=== PATIENT | male | born 1950 | race Caucasian/White ===

== ENCOUNTER → 2016-09-23 | Outpatient (CLI) | payer MEDICARE, MEDICAID ==
[~2016-09-23] MED LIST: ATOR20TA PO; ATOR40TA16 PO; AZIT250T74 PO; BEDSIDE COMMODE1 MI1; CALC0.25 PO; CEFT250S PO; CEFU1TAB43 PO; CILO50TA PO; CITA10TA4 PO; CLAR10TA7 PO; COUM2TAB PO; CYAN100015 BUCCAL; CYMB30CA PO; ECOT81TA2 PO; FLON0.053; FLUT1SPR5 EACH NARE; GABA300C3 PO; GABA300C5 PO; HYDR-3129 PO; HYDR-3366 PO; LEVEMIR SQ; LIPI40TA PO; LISI-519 PO; LORA-361 PO; LORA10TA PO; METO100 PO; METO25TA3 PO; PATI1POW PO; PLAV75TA29 PO; PRIL40CA PO; PROT40TA PO; PROTPAK PO; SODI325T PO; SPIRCAP INH; TIOT18I INH; VENTAER INH; VITA100020 PO; WARF5 PO; [UNRECOGNIZED DRUG - CODE]; [UNRECOGNIZED DRUG - CODE]; [UNRECOGNIZED DRUG - CODE] PEG
--- NOTE | 2016-09-23 10:53 | RADRPT ---
EXAM DATE/TIME: 09/23/2016 00:00 [facility] COMPARISON: No previous studies available for comparison. INDICATIONS : Dysphagia FLUORO TIME: 3.0 minutes IMAGE COUNT: 0 CONTRAST: Dose as prescribed by speech pathologist. MEDICAL HISTORY : radiation therapy to throat SURGICAL HISTORY : None. ENCOUNTER: Initial ACUITY: 1 month PAIN SCORE: Non-responsive. LOCATION: Bilateral throat FINDINGS: A modified barium swallow was performed with speech pathology. Patient was given a variety of liquids to swallow. Examination with the straight erect projection reveals with thin liquids penetration and aspiration w ith suboptimal movement of the epiglottis and pooling in the vallecula. For a full detailed report, see report by the speech pathologist. CONCLUSION: Please see speech pathology report Oscar Verdugo MD on September 23, 2016 at 10:51 Board Certified Radiologist. This report was verified electronically.
== END ==
LOC: HRAD 09:43
PROVIDERS: ATTEND Internal Medicine Gastroenterology
DX: R13.10 Dysphagia, unspecified (principal)
CPT/HCPCS: 74230; 92611; G8996; G8997; G8998

== ENCOUNTER 2016-09-26 08:17 | Inpatient (IN) | payer MEDICARE, MEDICAID ==
[~2016-09-26] VITALS: Ht 182.9 cm; Wt 80.5 kg
[2016-09-26] VITALS (10 sets, daily range): BP systolic 99–150; BP diastolic 55–77; PULSE 63–100; RESP 18–20; TEMP 96.1–98.3; O2SAT 92–96
[~2016-09-26 08:17] MED LIST changes: -ATOR40TA16 PO; -BEDSIDE COMMODE1 MI1; -CEFT250S PO; -CILO50TA PO; -CLAR10TA7 PO; -COUM2TAB PO; -CYAN100015 BUCCAL; -CYMB30CA PO; -FLUT1SPR5 EACH NARE; -GABA300C5 PO; -HYDR-3366 PO; -LIPI40TA PO; -LISI-519 PO; -LORA-361 PO; -METO25TA3 PO; -PATI1POW PO; -PLAV75TA29 PO; -PROT40TA PO; -PROTPAK PO; -SODI325T PO; -SPIRCAP INH; -[UNRECOGNIZED DRUG - CODE]; -[UNRECOGNIZED DRUG - CODE]; -[UNRECOGNIZED DRUG - CODE] PEG
[2016-09-26] MEDS ORDERED: SODIUM CHLOR 0.9% 1000 ML INJ 1,000 ML IV SCH (08:33)
[2016-09-26] MEDS ORDERED: ONDANSETRON HCL 4 MG/2 ML VIAL IVP PRN (08:45)
[2016-09-26] MEDS ORDERED: SODIUM CHLORIDE 0.9% FLUSH 5 ML FLUSH FLUSH PRN ×2 (08:45→09:00)
[2016-09-26] MEDS ORDERED: NALOXONE HCL 0.4 MG/ML AMP IV PRN ×2 (08:45→09:00)
[2016-09-26] MEDS ORDERED: SODIUM CHLORIDE 0.9% FLUSH 5 ML FLUSH IVF PRN (08:45)
[2016-09-26 08:47] LABS: AUTOMATED NEUTROPHIL # 14.2 TH/MM3 (1.8-7.7); BASOPHIL # 0.6 TH/MM3 (0-0.2); BASOPHIL % 3.7 % (0.0-2.0); EOSINOPHIL % 0.3 % (0.0-4.0); HEMATOCRIT 43.2 % (39.0-51.0); LYMPH % 3.2 % (9.0-44.0); LYMPHOCYTE # 0.5 TH/MM3 (1.0-4.8); MEAN CELL VOLUME 77.9 FL (80.0-100.0); MEAN CORPUSCULAR HEMOGLOBIN 25.4 PG (27.0-34.0); MEAN CORPUSCULAR HGB CONC 32.7 % (32.0-36.0); MONO % 5.4 % (0.0-8.0); NEUT % 87.4 % (16.0-70.0); PLATELET COUNT 229 TH/MM3 (150-450); RED BLOOD COUNT 5.54 MIL/MM3 (4.50-5.90); RED CELL DISTRIBUTION WIDTH 14.3 % (11.6-17.2); WHITE BLOOD COUNT 16.2 TH/MM3 (4.0-11.0)
[2016-09-26 08:49] LABS: HEMO FLAGS DIFF FINAL
[2016-09-26 08:51] LABS: CHLORIDE 105 MEQ/L (98-107); POTASSIUM 4.2 MEQ/L (3.5-5.1); SODIUM (NA) 140 MEQ/L (136-145)
--- NOTE | 2016-09-26 08:53 | PD ---
HPI Chief Complaint: Chest Pain Time Seen by Provider: 08:33 Travel History International Travel<30 days: No Contact w/Intl Traveler<30days: No Traveled to known affect area: No History of Present Illness HPI 66-year-old male with history of CAD, CABG, PVD on Coumadin, laryngeal cancer status post radiation therapy at [facility], dysphasia, recent PEG tube removal, here for evaluation of cough, shortness of breath, and chest pain. Symptoms started yesterday evening. The patient has had a persistent cough throughout the night. He was noted to have a fever of 102F at 3 AM and was given Tylenol by his . Patient reports having chest pain when he coughs. Cough is productive of yellowish sputum. He had a recent swallow study which showed that the patient aspirated if he was not holding his neck in flexion. The patient's primary care physician Dr. Briggs is present at the patient's bedside when he arrived to the emergency department. There is a high suspicion for aspiration pneumonia. She will admit the patient to her service for further treatment and evaluation. PFSH Past Medical History Hx Anticoagulant Therapy: Yes Anxiety: Yes Depression: Yes Cancer: No Cardiac Catheterization: Yes Cardiovascular Problems: Yes (STENTS - OPEN HEART, HTN, CHOL) High Cholesterol: Yes Congestive Heart Failure: Yes COPD: Yes Cerebrovascular Accident: Yes Coronary Artery Disease: Yes Diabetes: Yes Diminished Hearing: No Endocrine: Yes Gastrointestinal Disorders: Yes GERD: Yes Genitourinary: Yes (RENAL INSUFFICIENCY, POLYCYSTIC KIDNEY DISEASE) Hypertension: Yes Immune Disorder: No Implanted Vascular Access Dvce: No Kidney Stones: Yes Musculoskeletal: No Neurologic: Yes Psychiatric: Yes Reproductive: No Respiratory: Yes (COPD) Immunizations Current: Yes Myocardial Infarction: Yes Renal Failure: Yes Past Surgical History Abdominal Surgery: Yes (gallbladder removed 1995) Arteriovenous Shunt: No Cardiac Surgery: Yes (CARDIAC CATH WITH MULTIPLE STENTS) Cholecystectomy: Yes Coronary Artery Bypass Graft: Yes Coronary Stent: Yes Ear Surgery: Yes Endocrine Surgery: No Eye Surgery: No Gynecologic Surgery: No Insulin Pump: No Joint Replacement: No Thoracic Surgery: No Tonsillectomy: Yes Other Surgery: Yes Social History Alcohol Use: No Tobacco Use: No (QUIT 2008) Substance Use: No Allergies-Medications (Allergen,Severity, Reaction): Coded Allergies: HMG-CoA Reductase Inhibitors (Verified Allergy, Severe, 09/26/16) Niacin (Verified Allergy, Severe, 09/26/16) CAUSES HIM TO FEEL HOT Reported Meds & Prescriptions Reported Meds & Active Scripts Active Ceres 10/325 (Hydrocodone-Acetaminophen 325) Acetaminophen 325/10 Hydrocodone Tab 1 Tab PO Q6H PRN Zithromax (Azithromycin) 250 Mg Tab 250 Mg PO DAILY 3 Days Ceftin 500 Mg Tab (Cefuroxime Axetil) 500 Mg Tab 500 Mg PO DAILY 5 Days Coumadin (Warfarin Sod) 5 Mg Tab 5 Mg PO DAILY@1600 Reported Vitamin B-12 (Cyanocobalamin) 1,000 Mcg Tab Unknown Dose PO DAILY Ventolin Hfa (Albuterol Sulfate) 18 Gm Aero 2 Puff INH Q4H PRN * SHAKE WELL BEFORE USE * Spiriva 18 Mcg Oral Inh (Tiotropium [place]) 18 Mcg Inhp 1 Cap INH DAILY Prilosec 40 mg cap (Omeprazole) 40 Mg Cap 40 Mg PO DAILY Gabapentin 300 Mg Cap 300 Mg PO BID Calcitriol 0.25 Mcg Cap 0.25 Mcg PO DAILY Atorvastatin 20 mg tab (Atorvastatin Calcium) 20 Mg Tab 10 Mg PO DAILY Ecotrin (Aspirin) 81 Mg Tabec 81 Mg PO DAILY Citalopram Hydrobromide 10 Mg Tab 10 Mg PO DAILY Flonase (Fluticasone Propionate) 0.05 % Naspr 1 Spr NA DAILY 1 SPRAY EACH NOSTRIL Metoprolol Tartrate 100 Mg Tab 100 Mg PO BID Levemir (Insulin Detemir) Inj 10 Units SQ DAILY Claritin 10 Mg Tab (Loratadine) 10 Mg Tab 10 Mg PO DAILY Review of Systems Except as stated in HPI: all other systems reviewed are Neg Physical Exam Narrative GENERAL: Pleasant, well-developed, well-nourished, awake, alert, comfortable, no acute distress. SKIN: Warm and dry. No rash. HEAD: Atraumatic. Normocephalic. EYES: Pupils equal and round. No scleral icterus. No injection or drainage. ENT: Mucous membranes pink and moist. NECK: Trachea midline. No JVD. No nuchal rigidity. CARDIOVASCULAR: Regular rate and rhythm. No murmur appreciated. RESPIRATORY: No accessory muscle use. Coarse breath sounds bilaterally. No wheezes. Breath sounds equal bilaterally. GASTROINTESTINAL: Abdomen soft, non-tender, nondistended. MUSCULOSKELETAL: No obvious deformities. No clubbing. No cyanosis. No edema. NEUROLOGICAL: Awake and alert. No obvious cranial nerve deficits. Motor grossly within normal limits. Normal speech. PSYCHIATRIC: Appropriate mood and affect; insight and judgment normal. Data Data Last Documented VS Vital Signs Date Time Temp Pulse Resp B/P Pulse Ox O2 Delivery O2 Flow Rate FiO2 09/26/16 08:40 18 93 Nasal Cannula 2 09/26/16 08:33 98.3 100 102/64 Orders Complete Blood Count With Diff (09/26/16 08:33) Comprehensive Metabolic Panel (09/26/16 08:33) B-Type Natriuretic Peptide (09/26/16 08:33) Act Partial Throm Time (Ptt) (09/26/16 08:33) Prothrombin Time / Inr (Pt) (09/26/16 08:33) Ckmb (Isoenzyme) Profile (09/26/16 08:33) Troponin I (09/26/16 08:33) Influenzae A/B Antigen (09/26/16 08:33) Iv Access Insert/Monitor (09/26/16 08:33) Ecg Monitoring (09/26/16 08:33) Oximetry (09/26/16 08:33) Oxygen Administration (09/26/16 08:33) Chest, Single Ap (09/26/16 08:33) Sodium Chloride 0.9% Flush (Ns Flush) (09/26/16 08:45) Blood Culture (09/26/16 08:33) Sodium Chlor 0.9% 1000 Ml Inj (Ns 1000 M (09/26/16 08:33) Admit Order (Ed Use Only) (09/26/16 08:44) Place In Observation (09/26/16 ) Vital Signs (Adult) Q4H (09/26/16 08:44) Activity Oob Ad Lissette (09/26/16 08:44) Quiller Machine Fixer / Telemetry .CONTINUOUS (09/26/16 08:44) Diet Npo (09/26/16 Breakfast) Sodium Chlor 0.45% 1000 Ml Inj (1/2 Ns 1 (09/26/16 08:44) Sodium Chloride 0.9% Flush (Ns Flush) (09/26/16 08:45) Sodium Chloride 0.9% Flush (Ns Flush) (09/26/16 09:00) Ondansetron Inj (Zofran Inj) (09/26/16 08:45) Creatine Kinase (Cpk) (09/26/16 08:44) Creatine Kinase (Cpk) (09/26/16 14:44) Troponin I (09/26/16 08:44) Troponin I (09/26/16 14:44) Electrocardiogram (09/26/16 09:00) Electrocardiogram (09/26/16 15:00) Electrocardiogram (09/26/16 21:00) Resp Oxygen Govind C Titrat 1-4 L (09/26/16 ) Vte Prophylaxis Not Indicated (09/26/16 08:44) Naloxone Inj (Narcan Inj) (09/26/16 08:45) MDM Medical Decision Making Medical Screen Exam Complete: Yes Emergency Medical Condition: Yes Medical Record Reviewed: Yes Interpretation(s) EKG: Sinus, rate 103, left axis deviation, normal intervals, nonspecific septal and lateral ST/T changes with T-wave inversions in V1 and V2, unchanged from prior. Differential Diagnosis Aspiration pneumonia, influenza, pneumothorax, PE, ACS, sepsis Narrative Course Initial vital signs show heart rate 100, blood pressure 102/64, pulse ox 92% on 2 L nasal cannula, oral temp of 98.3F. The patient's primary care physician Dr. Briggs who is present at the patient' s bedside upon arrival to the emergency department. She will admit the patient to her service for further treatment and evaluation of likely aspiration pneumonia. Diagnosis Primary Impression: Aspiration pneumonia Qualified Code: J69.0 - Aspiration pneumonia, unspecified aspiration pneumonia type, unspecified laterality, unspecified part of lung Additional Impressions: Chest pain Qualified Code: R07.9 - Chest pain, unspecified type Shortness of breath Admitting Information Admitting Physician Requests: Admit Clark Ku MD Sep 26, 2016 08:53
[2016-09-26 08:55] LABS: ANION GAP 11 MEQ/L (5-15); BICARBONATE 24.2 MEQ/L (21.0-32.0); BLOOD UREA NITROGEN 22 MG/DL (7-18); INTERNATIONAL NORMALIZED RATIO 2.8 RATIO; PROTHROMBIN TIME - PATIENT 31.8 SEC (9.8-11.6)
[2016-09-26 08:58] LABS: ALT (GPT) 16 U/L (12-78); AST (GOT) 10 U/L (15-37); GLOMERULAR FILTRATION RATE 27 ML/MIN (>89)
[2016-09-26 08:59] LABS: TOTAL BILIRUBIN ADULT 0.5 MG/DL (0.2-1.0)
[2016-09-26] MEDS: SODIUM CHLORIDE 0.9% FLUSH 5 ML FLUSH FLUSH SCH ×2 (09:00→20:19)
[2016-09-26] MEDS ORDERED: METOPROLOL TARTRATE 100 MG TAB PO SCH (09:00)
[2016-09-26] MEDS ORDERED: ATORVASTATIN 10 MG TAB PO SCH (09:00)
[2016-09-26] MEDS: CALCITRIOL 0.25 MCG CAP PO SCH (09:00)
[2016-09-26] MEDS: SODIUM CHLOR 0.45% 1000 ML INJ 1,000 ML IV SCH ×2 (09:00→16:44)
[2016-09-26] MEDS ORDERED: ACETAMINOPHEN 650 MG/20.3 ML UDC PO PRN (09:00)
[2016-09-26] MEDS ORDERED: SODIUM CHLORIDE 0.9% FLUSH 5 ML FLUSH FLUSH SCH (09:00)
[2016-09-26 09:01] LABS: ALKALINE PHOSPHATASE 152 U/L (45-117); CREATINE KINASE 48 U/L (39-308)
[2016-09-26] MEDS: cefTRIAXone INJ 1,000 MG in SODIUM CHLORIDE 0.9% INJ 100 ML IV SCH (09:04)
[2016-09-26] MEDS ORDERED: PILL SPLITTER OTHER PRN (09:15)
[2016-09-26] MEDS: PANTOPRAZOLE SODIUM 40 MG VIAL IV PUSH SCH (09:48)
[2016-09-26] MEDS: CITALOPRAM HYDROBROMIDE 20 MG TAB PO SCH (09:49)
[2016-09-26] MEDS: FLUTICASONE PROPIONATE 50 MCG/ACT 16 GM NASAL SPRAY SCH (09:53)
[2016-09-26] MEDS: TIOTROPIUM BROMIDE 18 MCG INH INH SCH (09:53)
--- NOTE | 2016-09-26 09:54 | RADHPO ---
EXAM DATE/TIME: 09/26/2016 09:07 [facility] COMPARISON: CHEST SINGLE AP, December 21, 2015, 6:26. INDICATIONS : Chest pain and shortness of breath since last night. MEDICAL HISTORY : Hypertension. Chronic obstructive pulmonary disease. Congestive heart failure. Myocardial infarc tion. Hypercholesterdemia. Hperlipidemia. Polycystic kidney disease. Fibromyalgia. SURGICAL HISTORY : CABG. Tonsillectomy. Cholecystectomy. Cardiac catherization with stents. ENCOUNTER: Initial ACUITY: 1 day PAIN SCORE: 2/10 LOCATION: Bilateral chest FINDINGS: Portable AP view of the chest demonstrates a normal-sized cardiac silhouette in this patient post med hollis sternotomy. Lungs are underinflated and there is stable airspace opacity at the left lung base. N o pleural effusion or pneumothorax is visualized. Bones and soft tissues demonstrate no acute finding . CONCLUSION: Stable chest x-ray with underinflation and left basilar airspace opacity which may represent atelecta sis or airspace consolidation. Tomi Denise MD on September 26, 2016 at 9:51 Board Certified Radiologist. This report was verified electronically.
[2016-09-26 13:02] LABS: LACTIC ACID GHOST NOT REPORTABLE
[2016-09-26] MEDS: METOPROLOL TARTRATE 50 MG TAB PO SCH (20:18)
[2016-09-26] MEDS: HEPARIN SODIUM - SQ 10,000 UNITS/ML VIAL SQ SCH (20:19)
[2016-09-26] MEDS: ACETAMINOPHEN/HYDROcodone 325 MG/10 MG TAB PO PRN (20:19)
--- NOTE | 2016-09-26 22:33 | MH ---
cc: KELY ORTIZ MD DATE OF ADMISSION 09/26/2016 CHIEF COMPLAINT Chest discomfort, cough, fever, weakness. ADMISSION DIAGNOSIS Left lower lobe pneumonia, possible aspiration, shortness of breath. atypical chest discomfort. HISTORY OF PRESENT ILLNESS Mr. Iverson is a 66-year-old white male with a complex past medical history including that of laryngeal cancer diagnosed about a year ago status post radiation therapy at [facility]. He had a PICC tube placed during his therapy, but it came out several months ago. Since that time, he has been taking in food by mouth. He has been seeing speech therapy but continues to have some aspiration that seems to actually be worsening over the past few months. He just did a modified barium swallow on Friday and found that he aspirates all consistencies except for pudding, thickened liquids and pureed solids and only maintains no aspiration with chin tuck methods. He has not been consistently using the thickener for his fluids and, thus, I suspect that he is having aspiration. His notes that last evening approximately 4 o'clock he woke up with significant chest discomfort, shortness of breath and coughing. He notes that the coughing is what seems to trigger his chest discomfort and it does not hurt when he is not coughing. His notes he had a fever of 102.1 last evening; at the time was considerably confused and weak. He was unable to make it to the bathroom unaided. He is normally ambulatory on his own. He does have a significant past cardiac history but has actually been doing relatively stable from that standpoint for the past few years. The patient, when seen in the emergency room this morning at 8:30, stated that he was without any chest discomfort at that time/ He had no nausea or vomiting bit was having some shortness of breath and occasional cough. PAST MEDICAL HISTORY Chronic kidney disease stage IV most recently improved up to a stage III. Laryngeal cancer diagnosed in September of 2015 pain status post radiation therapy, hyperlipidemia, hyperkalemia due to his renal issues, history of SC in 2012 status post coronary artery bypass graft in November of 2012. He had cardiac stents placed previously, peripheral vascular disease with diabetic wounds that have subsequently healed. 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 PAST SURGICAL HISTORY 1. Cardiac stent 2. Cholecystectomy 2010 3. Coronary artery bypass graft November 2012 4. Kidney stents in 2008, for nephrolithiasis 5. Shoulder surgery from a fracture age 14 6. Bilateral femoral bypass in 2008 7. G-tube placement December 2015 Status post removal about June 2016 when it fell out SOCIAL HISTORY He is . He has four step children. He is retired. He last worked in 2003. He has a 9th grade education. He has no alcohol use. He has a prior 100 pack-year history of tobacco use, quit in early . MEDICATIONS 1. Lisinopril 5 mg daily. 2. Furosemide 20 mg daily 3. Metoprolol tartrate not certain of the dose. He had 100 mg b.i.d. listed. I have had him on 50 mg b.i.d. and there is another dose for 25 mg b.i.d. He is not certain of the dose he is taking. 3. Sodium bicarbonate 650 mg b.i.d. 4. Pantoprazole 40 mg daily. 5. Warfarin 4 mg daily 6. Claritin 10 mg daily for allergies, 7. Gabapentin 300 mg p.o. b.i.d., however, he has difficulty wallowing that. 8. Atorvastatin 80 mg daily. 9. Aspirin 81 mg a day. 10. Calcitriol 0.25 mg daily. 11. Citalopram 20 mg daily. 12. Fluticasone p.r.n. allergies 13. Spiriva 1 inhalation daily 14. Veltaffa 16.8 gram powder, packet every morning needs to be from the other medications by 5 hours 15. Vitamin D 1000 units p.o. daily 16. ProAir inhaler p.r.n. shortness of breath. ALLERGIES NIACIN - BURNING AND RASH SENSATION STATINS - MULTIPLE CAUSE MYALGIAS - SEEMS TO BE TOLERATING ATORVASTATIN HOWEVER. LOVAZA - DIARRHEA. FAMILY HISTORY He has a brother who has had kidney disease. Dad had kidney disease and SC, mom had stroke and SC. He has a sister with depression. IMMUNIZATIONS He had his Pneumovax in 2010, Presnar given 12/14/2014. He has had flu vaccines yearly, last given June 26, 2016. OTHER PHYSICIANS Dr. Narayanan - cardiology Dr. Gatica - toys and games hand finisher over in [place]. Dr. Melchor - oncology locally. He is also seeing [facility] oncology regarding his laryngeal cancer. REVIEW OF SYSTEMS Known hest discomfort as described above, fever. He has had no changes in vision or hearing. No sore throat. He does note some allergy symptoms and postnasal drip. No neck discomfort other than his chronic change in sensation since his radiation therapy. He has had no wounds. He has had cough, mild white to clear sputum. Some upper abdominal/chest discomfort mostly to the epigastrium in the left upper quadrant. He has had no blood in his stool. No black tarry stools. No hematochezia or melena. He denies any constipation. No dysuria, no hematuria. He has had no lower extremity edema. The wounds on his legs have improved. He does get pain in his legs at night and has chronic neuropathy symptoms. He is unstable in his gait as a routine basis but going flow he does well. He has not had any recent falls. He was noting some left shoulder discomfort this morning, tender to touch. He thinks he may have run into the wall in hallway. He had no bruising. Remainder of review of systems is negative. PHYSICAL EXAMINATION VITAL SIGNS: temperature is 98.3 in the emergency room, heart rate was 100. His respiratory rate was 36 on my exam, blood pressure 102/64, O2 sat was 92% on 2 liters nasal cannula. I did not succeed in getting an O2 sat on room ear. GENERAL: He is an elderly white male in no acute distress but somewhat tachypneic Without accessory muscle use. His helps with the history. He is relatively passive in response to his questions. HEENT: Pupils are equal, reactive to light. He has glasses, tympanic membranes within normal limits bilaterally. Nose no discharge. Oropharynx was without erythema. He does have a hoarse voice from his laryngeal cancer therapy but it is audible. Somewhat gravelly. NECK: He has no masses palpable, somewhat atrophic, mostly to the right. There is no hyperpigmentation at this time. He has supraclavicular wasting. No adenopathy. Neck shows good range of motion. CARDIOVASCULAR: Regular rate and rhythm, slightly tachycardiac at 100, 2/6 systolic ejection murmur audible throughout, distant heart sounds. LUNGS: Diffusely decreased breath sounds but with some crackles to the left base, bronchial breath sounds to the right apex. No wheezing or discrete rhonchi are noted today. Chest wall shows a sternal scar from his prior surgery, well-healed. He notes some tenderness to the xiphoid area since he has lost weight and notes it more prominent. He does have some sternal discomfort to palpation and feels some popping at times from his sternum with coughing or movement. ABDOMEN: Soft, generally nontender, but notes a little discomfort to his left upper quadrant. No lower abdominal tenderness is noted. EXTREMITIES: Minimally palpable dorsalis pedis pulses. Good capillary refill. No lesions to his feet or lower legs. He has scarring noted from prior wound but nothing is open. LABORATORY DATA White count elevated 16.2, hemoglobin 14.1, platelets of 229, neutrophils elevated at 87.4%, lymphocytes 3.2%. There are no bands noted. INR was 2.8. Chemistry shows a creatinine of 2.4, BUN 22 with a GFR of 27. It is actually slightly better than his norm. Random glucose was 198. Lactic acid was elevated at 2.5, alkaline phos slightly high at 152. CPK was 48 with a troponin of 0.44, BNP was 69, albumin low at 3.1. Blood cultures are pending. Flu A and B was negative. IMAGING STUDIES Chest x-ray showed under inflation and possible left basilar airspace opacity. CARDIOLOGY STUDIES EKG showed sinus rhythm. He had T wave inversion in leads V1 and V2 which is chronic. Otherwise no changes from his baseline EKG. ASSESSMENT AND PLAN 1. Chest discomfort with cough, fever and known aspiration, suspect aspiration pneumonia. He has been started on antibiotics. Blood cultures are pending. Sepsis evaluation is underway. I have placed him at n.p.o. status for the time being until we can figure out a plan of care for his swallowing. Tylenol p.r.n. pain or fever. 2. History of atherosclerotic heart disease. He does see Dr. Narayanan. He had been medically cleared for his laryngeal cancer therapy last year. He has really not had any coronary issues for the past year. We will continue his cholesterol medications. I need to clarify his metoprolol dosing. I have held his aspirin at this time as I am planning on getting a PEG tube placed. Check his serial EKGs and enzymes and refer appropriately to Dr. Narayanan if needed. I do not believe that his discomfort is cardiac at this time. 3. Peripheral vascular disease. He has been on Coumadin since having the revascularization to his legs. He was changed from Plavix and aspirin at that time. He has been relatively stable in his INR. I have held his Coumadin at this point pending a PEG tube placement. 4. Aspiration pneumonia status post treatment of his laryngeal cancer. He has lost a significant amount of weight which over the past several months and continues to lose despite trying to do his best to maintain p.o. intake. I do not believe he is taking in adequate calories due to the need to thicken his liquids and having aspiration. The patient is now willing to consider replacement of his PEG tube. He was supposed to be doing his upper endoscopy with Dr. Cole in the next week. I did speak with Dr. Perez today who notes that they would be able to place a PEG tube with endoscopic guidance, however, we do need to make sure that he is more medically stable from the standpoint of his pneumonia prior to proceeding with such. I will keep him off of his Coumadin and aspirin for the time being unless otherwise needed from a cardiac standpoint. 5. Laryngeal cancer status post of radiation therapy. His recent testing has shown no sign of recurrence. He is seeing oncology locally and has not been back to [place] for several months. 6. Hyperlipidemia. We will continue him on his medications. 7. Hypertension. He has been under very good control. 8. Chronic renal deficiency stage IV. He has been having variable control without. He has had hyperkalemia so he is on the Veltaffa medication. We will continue to monitor throughout his hospitalization. MD KEVIN Painter/ /6:38 PM /9:56 PM [email or web address]
[2016-09-27] VITALS (9 sets, daily range): BP systolic 102–134; BP diastolic 60–72; PULSE 55–71; RESP 16–20; TEMP 96–98; O2SAT 90–98
[2016-09-27] MEDS: SODIUM CHLOR 0.45% 1000 ML INJ 1,000 ML IV SCH ×2 (04:36→17:56)
[2016-09-27 05:56] LABS: AUTOMATED NEUTROPHIL # 10.8 TH/MM3 (1.8-7.7); BASOPHIL # 0.1 TH/MM3 (0-0.2); BASOPHIL % 0.5 % (0.0-2.0); EOSINOPHIL # 0.1 TH/MM3 (0-0.4); EOSINOPHIL % 1.1 % (0.0-4.0); HEMATOCRIT 36.7 % (39.0-51.0); LYMPH % 7.5 % (9.0-44.0); MEAN CELL VOLUME 78.5 FL (80.0-100.0); MEAN CORPUSCULAR HEMOGLOBIN 26.4 PG (27.0-34.0); MEAN CORPUSCULAR HGB CONC 33.5 % (32.0-36.0); MONO % 7.2 % (0.0-8.0); NEUT % 83.7 % (16.0-70.0); PLATELET COUNT 167 TH/MM3 (150-450); RED BLOOD COUNT 4.67 MIL/MM3 (4.50-5.90); RED CELL DISTRIBUTION WIDTH 13.9 % (11.6-17.2); WHITE BLOOD COUNT 12.9 TH/MM3 (4.0-11.0)
[2016-09-27 05:57] LABS: HEMO FLAGS DIFF FINAL
[2016-09-27 06:10] LABS: BICARBONATE 28.7 MEQ/L (21.0-32.0); POTASSIUM 5.4 MEQ/L (3.5-5.1)
[2016-09-27] MEDS: SODIUM CHLORIDE 0.9% FLUSH 5 ML FLUSH FLUSH SCH ×2 (07:51→20:47)
--- NOTE | 2016-09-27 07:55 | PD.CONS ---
HPI Service CV Consult Requested By Primary Care Physician Juliane Briggs MD History of Present Illness Here with CAD s/p PCI s/p CABG 2012, PAD s/p bifemoral bypass 2008, Renal stenting, COPD, HTN, hyperlipidemia and type 2 diabetes. He has been having to thicken food due to aspiration problems. He was having chest pain with coughing and shortness of breath. Serial troponin show elevation in the indeterminant range. Review of Systems Consitutional: DENIES: Fatigue, Fever, Chills, Weight gain, Weight loss Eyes: DENIES: Amaurosis F[place], Change in vision HEENT: DENIES: Lightheadedness, Change in hearing Respiratory: DENIES: See HPI, Cough, Snoring, Shortness of breath, Wheezing, Sputum production Cardiovascular: COMPLAINS OF: See HPI Gastrointestinal: DENIES: Nausea, Vomiting, Change in bowel habits, Reflux, Bloody stools, Melena Genitourinary: DENIES: Urinary incontinence, Difficulty voiding Integumentary: DENIES: Rash Neurologic: DENIES: Tingling or numbness, Memory problems, Poor Balance, Stroke symptoms Musculoskeletal: DENIES: Joint pain, Muscle pain, Limited range of motion, Back pain Psychiatric: DENIES: Anxiety, Depression, Sleep disturbances Hematologic: DENIES: Bruising tendencies, Bleeding tendencies Endocrine: DENIES: Weight gain, Weight loss, Thyroid disease Past Family Social History Allergies: Coded Allergies: HMG-CoA Reductase Inhibitors (Verified Allergy, Severe, 09/26/16) Niacin (Verified Allergy, Severe, 09/26/16) CAUSES HIM TO FEEL HOT Past Medical History see HPI Past Surgical History see HPI shoulder surgery cholecystectomy g-tube Reported Medications [place] 10/325 (Hydrocodone-Acetaminophen 10/325) Acetaminophen 325/10 Hydrocodone Tab 1 Tab PO Q6H PRN Zithromax (Azithromycin) 250 Mg Tab 250 Mg PO DAILY 3 Days Ceftin 500 Mg Tab (Cefuroxime Axetil) 500 Mg Tab 500 Mg PO DAILY 5 Days Coumadin (Warfarin Sod) 5 Mg Tab 5 Mg PO DAILY@1600 Reported Vitamin B-12 (Cyanocobalamin) 1,000 Mcg Tab Unknown Dose PO DAILY Ventolin Hfa (Albuterol Sulfate) 18 Gm Aero 2 Puff INH Q4H PRN * SHAKE WELL BEFORE USE * Spiriva 18 Mcg Oral Inh (Tiotropium [place]) 18 Mcg Inhp 1 Cap INH DAILY Prilosec 40 mg cap (Omeprazole) 40 Mg Cap 40 Mg PO DAILY Gabapentin 300 Mg Cap 300 Mg PO BID Calcitriol 0.25 Mcg Cap 0.25 Mcg PO DAILY Atorvastatin 20 mg tab (Atorvastatin Calcium) 20 Mg Tab 10 Mg PO DAILY Ecotrin (Aspirin) 81 Mg Tabec 81 Mg PO DAILY Citalopram Hydrobromide 10 Mg Tab 10 Mg PO DAILY Flonase (Fluticasone Propionate) 0.05 % Naspr 1 Spr NA DAILY 1 SPRAY EACH NOSTRIL Metoprolol Tartrate 100 Mg Tab 100 Mg PO BID Levemir (Insulin Detemir) Inj 10 Units SQ DAILY Claritin 10 Mg Tab (Loratadine) 10 Mg Tab 10 Mg PO DAILY Family History noncontributory Social History 100 PYH smoking quits , denies alcohol or substance abuse Physical Exam Vital Signs Vital Signs Date Time Temp Pulse Resp B/P Pulse Ox O2 Delivery O2 Flow Rate FiO2 09/27/16 04:00 96.0 59 18 110/60 98 09/27/16 00:00 97.4 55 16 102/70 96 09/26/16 21:19 18 09/26/16 20:00 96.1 64 18 150/77 94 09/26/16 19:53 95 Nasal Cannula 2.00 09/26/16 16:46 96 Nasal Cannula 2.00 09/26/16 16:00 97.8 63 20 142/73 94 09/26/16 12:45 97.3 70 20 109/70 96 09/26/16 12:26 66 18 103/58 95 Nasal Cannula 2 09/26/16 11:11 18 94 Nasal Cannula 2 09/26/16 11:08 68 18 99/55 95 Nasal Cannula 2 09/26/16 10:04 85 18 103/59 93 Nasal Cannula 2 09/26/16 08:48 18 93 Nasal Cannula 2 09/26/16 08:40 18 93 Nasal Cannula 2 09/26/16 08:40 93 Nasal Cannula 2 09/26/16 08:33 98.3 100 18 102/64 92 Physical Exam GENERAL: Well-nourished, well-developed patient in no apparent distress. NECK: No JVD. No carotid bruit. CARDIOVASCULAR: Regular rate and rhythm. S1/S2 no murmur, rub, or gallop. RESPIRATORY: No accessory muscle use. Clear to auscultation. Breath sounds equal bilaterally. GASTROINTESTINAL: Abdomen soft, non-tender, nondistended. MUSCULOSKELETAL: Extremities without clubbing, cyanosis, or edema. Laboratory Laboratory Tests Test 09/26/16 09/26/16 09/26/16 09/26/16 08:30 11:00 14:10 19:55 White Blood Count 16.2 Red Blood Count 5.54 Hemoglobin 14.1 Hematocrit 43.2 Mean Corpuscular Volume 77.9 Mean Corpuscular Hemoglobin 25.4 Mean Corpuscular Hemoglobin 32.7 Concent Red Cell Distribution Width 14.3 Platelet Count 229 Mean Platelet Volume 9.7 Neutrophils (%) (Auto) 87.4 Lymphocytes (%) (Auto) 3.2 Monocytes (%) (Auto) 5.4 Eosinophils (%) (Auto) 0.3 Basophils (%) (Auto) 3.7 Neutrophils # (Auto) 14.2 Lymphocytes # (Auto) 0.5 Monocytes # (Auto) 0.9 Eosinophils # (Auto) 0.0 Basophils # (Auto) 0.6 CBC Comment DIFF FINAL Differential Comment Prothrombin Time 31.8 Prothromb Time International 2.8 Ratio Activated Partial 38.0 Thromboplast Time Sodium Level 140 Potassium Level 4.2 Chloride Level 105 Carbon Dioxide Level 24.2 Anion Gap 11 Blood Urea Nitrogen 22 Creatinine 2.40 Estimat Glomerular Filtration 27 Rate Random Glucose 198 Calcium Level 8.7 Total Bilirubin 0.5 Aspartate Amino Transf 10 (AST/SGOT) Alanine Aminotransferase 16 (ALT/SGPT) Alkaline Phosphatase 152 Total Creatine Kinase 48 59 95 Troponin I 0.44 0.70 0.59 B-Type Natriuretic Peptide 69 Total Protein 7.2 Albumin 3.1 Lactic Acid Level 2.5 2.5 Test 09/27/16 05:35 White Blood Count 12.9 Red Blood Count 4.67 Hemoglobin 12.3 Hematocrit 36.7 Mean Corpuscular Volume 78.5 Mean Corpuscular Hemoglobin 26.4 Mean Corpuscular Hemoglobin 33.5 Concent Red Cell Distribution Width 13.9 Platelet Count 167 Mean Platelet Volume 9.3 Neutrophils (%) (Auto) 83.7 Lymphocytes (%) (Auto) 7.5 Monocytes (%) (Auto) 7.2 Eosinophils (%) (Auto) 1.1 Basophils (%) (Auto) 0.5 Neutrophils # (Auto) 10.8 Lymphocytes # (Auto) 1.0 Monocytes # (Auto) 0.9 Eosinophils # (Auto) 0.1 Basophils # (Auto) 0.1 CBC Comment DIFF FINAL Differential Comment Sodium Level 141 Potassium Level 5.4 Chloride Level 105 Carbon Dioxide Level 28.7 Anion Gap 7 Blood Urea Nitrogen 26 Creatinine 2.30 Estimat Glomerular Filtration 28 Rate Random Glucose 119 Calcium Level 8.4 Date/Time Procedure Status Source Growth 09/26/16 08:44 Influenza Types A,B Antigen (BECCA) - Final Complete Nasal Washing NEGATIVE FOR FLU A AND B ANTIGEN.... 09/26/16 08:40 Aerobic Blood Culture Received Blood Peripheral Pending 09/26/16 08:40 Anaerobic Blood Culture Received Blood Peripheral Pending Result Diagram: 09/27/16 0535 09/27/16 0535 Assessment and Plan Problem List: (1) Elevated troponin I level Assessment and Plan: in the indeterminant range and flat, likely demand medicated with aspiration and kidney disease. Will get Lexiscan SPECT to r/o ischemia and go from there Nixon Perez Sep 27, 2016 07:54
[2016-09-27] MEDS: TIOTROPIUM BROMIDE 18 MCG INH INH SCH (08:20)
[2016-09-27] MEDS: PANTOPRAZOLE SODIUM 40 MG VIAL IV PUSH SCH (08:21)
[2016-09-27] MEDS: METOPROLOL TARTRATE 50 MG TAB PO SCH (08:21)
[2016-09-27] MEDS: CALCITRIOL 0.25 MCG CAP PO SCH (08:21)
[2016-09-27] MEDS: HEPARIN SODIUM - SQ 10,000 UNITS/ML VIAL SQ SCH ×2 (08:21→20:47)
[2016-09-27] MEDS: cefTRIAXone INJ 1,000 MG in SODIUM CHLORIDE 0.9% INJ 100 ML IV SCH (08:21)
[2016-09-27] MEDS: ATORVASTATIN 40 MG TAB PO SCH (08:21)
[2016-09-27] MEDS: CITALOPRAM HYDROBROMIDE 20 MG TAB PO SCH (08:21)
[2016-09-27] MEDS: FLUTICASONE PROPIONATE 50 MCG/ACT 16 GM NASAL SPRAY SCH (08:22)
--- NOTE | 2016-09-27 09:14 | HHI.FPPN ---
Subjective Remarks Feeling better this AM, no more chest pain, no fever. Cough is a little better , no sputum. Feels stronger. States he has been walking in the room without problem. Food is all thickened and pureed. He does have pureed eggs this AM that he says is disgusting and can't see why he can't have regular scrambled eggs. Liquids on his table are thickened. 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 Notes he had one at [facility] summer 2015 when he had a syncopal episode when undergoing radiation therapy. Notes he had lateral ischemia at that time. I do remember that and think I have documentation at my office that I will send over. Objective Vitals Vital Signs Date Time Temp Pulse Resp B/P Pulse Ox O2 Delivery O2 Flow Rate FiO2 09/27/16 08:00 98.0 61 20 121/69 97 09/27/16 07:56 98 21 09/27/16 07:54 97 Nasal Cannula 2.00 09/27/16 04:00 96.0 59 18 110/60 98 09/27/16 00:00 97.4 55 16 102/70 96 09/26/16 21:19 18 09/26/16 20:00 96.1 64 18 150/77 94 09/26/16 19:53 95 Nasal Cannula 2.00 09/26/16 16:46 96 Nasal Cannula 2.00 09/26/16 16:00 97.8 63 20 142/73 94 09/26/16 12:45 97.3 70 20 109/70 96 09/26/16 12:26 66 18 103/58 95 Nasal Cannula 2 09/26/16 11:11 18 94 Nasal Cannula 2 09/26/16 11:08 68 18 99/55 95 Nasal Cannula 2 09/26/16 10:04 85 18 103/59 93 Nasal Cannula 2 I/O 09/26/16 09/26/16 09/26/16 09/27/16 09/27/16 09/27/16 07:00 15:00 23:00 07:00 15:00 23:00 Intake Total 100 ml 375 ml 0 ml Balance 100 ml 375 ml 0 ml Intake Oral 375 ml 0 ml IV Total 100 ml # Voids 1 # Bowel Movements 1 Result Diagram: 09/27/16 0535 09/27/16 0535 Objective Remarks gen: slightly cachectic WM, sitting up in bed trying to eat breakfast. no distress, gravelly voice at his baseline, occasional cough without sputum CV: RRR, no longer tachy Lungs: left basilar crackles, slight bronchial BS to the apex, no wheezing, no rhonchi, no longer tachypnic Abd: soft, NT Ext: no edema, still has IVF at 125 Urinary Catheter: No Vascular Central Line Catheter: No A/P Problem List: (1) Pneumonia Status: Acute Plan: Fever, cough, SOB, chest pain that started 2 nights ago. Feeling better this AM after rocephin and zithromax. he has had intermittant fever and cough since the radiation therapy and has been on antibiotics x2 as outpatient for this, none in the past 2 months (usually improves with ceftin). (2) Aspiration into airway Status: Chronic Plan: Ongoing since his laryngeal cancer dx and radiation therapy that started December 2015 (dx 09/2015). He had PEG tube until about June 2016 when it fell out and since he was tolerating PO well at that time we took out the tube. He has since worsened in his swallow and having more aspiration. Losing weight. (3) Chest pain Status: Acute Plan: CPK wnl, troponins elevated, not with classic cardiac symptoms. Appreciate cardiology consult. Pending nuclear stress test. Will copy his summer 2015 stress test to the hospital for review also as long as I can pull that up. (4) Elevated troponin I level Status: Acute Plan: Chest pain was only with coughing. None since admit. (5) Diabetes mellitus with peripheral vascular disease Status: Chronic Plan: He has been off medications since his weight loss with the laryngeal cancer and has not required medications. hbgA1C has been well controlled. Continue to monitor in hospital but has been 155 or less since admit (other than initial elevated likely stress response) (6) CAD (coronary artery disease) Status: Chronic Plan: He has had bypass surgery and stenting. Trying to treat medically as much as possible. Last bypass surgery was at [facility]. Followed locally with Dr. Narayanan. He has been on ASA, beta jessica as tolerated (BP and HR decreased after weight loss with radiation), and has been tolerating atorvastatin 80mg daily at home (lowered to 40mg with current antibitoics). (7) Chronic kidney disease, stage 4 (severe) Status: Chronic Plan: He follows with Dr. Pemberton. He takes a med to lower potassium (veltassa ) and also sodium bicarb. Will continue. Problem Qualifiers (1) Pneumonia: Qualified Code: J69.0 - Aspiration pneumonia of left lower lobe due to regurgitated food (2) Chest pain: Qualified Code: R07.9 - Chest pain, unspecified type (3) CAD (coronary artery disease): Qualified Code: I25.709 - Coronary artery disease involving coronary bypass graft of hoh heart with angina pectoris Juliane Briggs MD Sep 27, 2016 09:14
[2016-09-27] MEDS: SODIUM BICARBONATE 325 MG TAB PO SCH ×2 (10:01→20:50)
--- NOTE | 2016-09-27 10:22 | HHI.PR ---
Addendum to Inpatient Note Addendum Reason: Additional Documentation Additional Information Dx: Sepsis: Pt with initial exam with tachycardia (HR 100), tachypnea (RR 36 on exam) and WBC of 16 with left shift. Reported fever to 102 overnight by family but no fever since being at the hospital. Left lower lobe pneumonia with documented aspiration events on admit CXR. Elevated lactic acid at 2 x 2. No change in renal function over baseline and LFTs wnl. Pending blood cultures. Clinicallly improved this AM without hypotension, no decrease in peripheral perfusion (good cap refill on exam today and on admit). I faxed over the results of nuclear stress test from 03/2016 at [facility] that showed "moderate to severe fixed defect in the anterior wall. There is associated wall motion abnormality. There is visually mild to moderate decreasse EF. LV chamber size is normal." Pt had no chest pain, no EKG changes during the procedure. Juliane Velez MD Sep 27, 2016 10:22
[2016-09-27] MEDS ORDERED: REGADENOSON INJ 0.4 MG/5 ML SYR IV ONE (11:35)
--- NOTE | 2016-09-27 12:41 | RADHPO ---
EXAM DATE/TIME: 09/27/2016 11:42 [facility] COMPARISON: MYOCARDIAL PERF PHARM SPECT, GATED W/EF, April 07, 2012, 9:42. CHEST SINGLE AP, September 26, 2016, 9 :07. INDICATIONS : Substernal chest pain with dyspnea. Angina. Coronary artery disease. DOSE: 25.4 mCi Tc99m Myoview at stress. 8.5 mCi Tc99m Myoview at rest. 0.4 mg Lexiscan STRESS SYMPTOMS: Dyspnea, nausea and legs aching. EJECTION FRACTION: 45% MEDICAL HISTORY : Hypertension. Diabetes mellitus type 2. Chronic obstructive pulmonary disease. Myocardial infarction. SURGICAL HISTORY : CABG Cholecystectomy. Bifemoral bypass. ENCOUNTER: Initial ACUITY: 1 day PAIN SCALE: 5/10 LOCATION: Substernal chest TECHNIQUE: The patient underwent pharmacologic stress with infusion of prescribed dose. Continuous ECG tracing was monitored during stress. Gated SPECT imaging was performed after stress and conventional SPECT i maging was performed at rest. The examination was performed on a SPECT/CT scanner, both attenuation and non-corrected datasets were reviewed. FINDINGS: DISTRIBUTION: Wall maximum perfusion as the anterior septal and lateral wall PERFUSION STUDY: Small slitlike area of decreased perfusion without redistribution in the anterior wall towards the ap ex. GATED STUDY: Mild hypokinesia of the septum CONCLUSION: Small slitlike fixed defect without redistribution anterior wall towards the apex consistent with inf arction. Diminished ejection fraction at 45% with septal hypokinesia. RISK CATEGORY: Intermediate (1-3% Annual Mortality Rate) Oscar Verdugo MD on September 27, 2016 at 12:35 Board Certified Radiologist. This report was verified electronically.
[2016-09-27] MEDS: ACETAMINOPHEN/HYDROcodone 325 MG/10 MG TAB PO PRN ×3 (12:55→20:51)
--- NOTE | 2016-09-27 16:28 | EKG ---
Date Performed: 09/26/2016 Time Performed: 22:17:58 PTAGE: 66 years EKG: Sinus bradycardia. Septal and lateral ST-T changes are nonspecific Borderline ECG PREVIOUS TRACING : 09/26/2016 13.58 Compared to prior tracing no significant change DOCTOR: Zachariah Pineda Interpretating Date/Time 09/27/2016 16:27:06
--- NOTE | 2016-09-27 16:44 | EKG ---
Date Performed: 09/26/2016 Time Performed: 13:58:24 PTAGE: 66 years EKG: Sinus rhythm . Septal and lateral ST-T changes may be due to myocardial ischemia Abnormal ECG PREVIOUS TRACING : 12/21/2015 06.45 Compared to prior tracing no significant change DOCTOR: Zachariah Pineda Interpretating Date/Time 09/27/2016 16:44:25
--- NOTE | 2016-09-27 16:46 | HHI.PR ---
Addendum to Inpatient Note Addendum Reason: Additional Documentation Additional Information Joya called with the stress test result noting it was intermediate. On review of the stress test, he has a fixed diffusion defect to the anterior wall with EF of 45% which is stable. d/w Joya and advised I don't think this is of concern. She notes he is feeling better (had nausea and vomiting right after the stress test). Juliane Reagan MD Sep 27, 2016 16:46
--- NOTE | 2016-09-27 16:59 | EKG ---
Date Performed: 09/26/2016 Time Performed: 08:22:46 PTAGE: 66 years EKG: Sinus tachycardia Septal and lateral ST-T changes are nonspecific Borderline ECG PREVIOUS TRACING : 12/21/2015 06.45 Compared to prior tracing no significant change DOCTOR: Zachariah Pineda Interpretating Date/Time 09/27/2016 16:57:20
[2016-09-27] MEDS: METOPROLOL TARTRATE 25 MG TAB PO SCH (20:50)
[2016-09-28 02:08] VITALS: BP 98/63; PULSE 85; RESP 16; TEMP 97.9; O2SAT 93
[2016-09-28 05:08] VITALS: BP 136/72; PULSE 60; RESP 16; TEMP 98.2; O2SAT 96
[2016-09-28 07:11] LABS: AUTOMATED NEUTROPHIL # 6.5 TH/MM3 (1.8-7.7); BASOPHIL % 0.5 % (0.0-2.0); EOSINOPHIL # 0.1 TH/MM3 (0-0.4); EOSINOPHIL % 1.8 % (0.0-4.0); HEMATOCRIT 36.4 % (39.0-51.0); HEMO FLAGS DIFF FINAL; LYMPH % 10.5 % (9.0-44.0); LYMPHOCYTE # 0.8 TH/MM3 (1.0-4.8); MEAN CORPUSCULAR HEMOGLOBIN 26.1 PG (27.0-34.0); MEAN CORPUSCULAR HGB CONC 33.1 % (32.0-36.0); MONO % 7.2 % (0.0-8.0); PLATELET COUNT 154 TH/MM3 (150-450); RED BLOOD COUNT 4.61 MIL/MM3 (4.50-5.90); RED CELL DISTRIBUTION WIDTH 13.9 % (11.6-17.2)
[2016-09-28 07:19] LABS: POTASSIUM 4.9 MEQ/L (3.5-5.1)
[2016-09-28 07:21] LABS: INTERNATIONAL NORMALIZED RATIO 1.9 RATIO; PROTHROMBIN TIME - PATIENT 21.7 SEC (9.8-11.6)
[2016-09-28 07:25] LABS: BICARBONATE 27.9 MEQ/L (21.0-32.0)
[2016-09-28 08:00] VITALS: BP 147/83; PULSE 65; RESP 21; TEMP 97; O2SAT 90; O2SAT 93
[2016-09-28 08:05] VITALS: PULSE 62
[2016-09-28] MEDS: SODIUM CHLORIDE 0.9% FLUSH 5 ML FLUSH FLUSH SCH (09:00)
[2016-09-28] MEDS ORDERED: LIPI40TA PO (09:21)
[2016-09-28] MEDS ORDERED: METO25TA3 PO (09:21)
[2016-09-28] MEDS ORDERED: SODI325T PO (09:21)
[2016-09-28] MEDS ORDERED: PATI1POW PO (09:21)
[2016-09-28] MEDS ORDERED: CEFT250S PO (09:21)
[2016-09-28] MEDS ORDERED: LISI-519 PO (09:21)
[2016-09-28] MEDS ORDERED: PROTPAK PO (09:21)
[2016-09-28] MEDS: SODIUM CHLOR 0.45% 1000 ML INJ 1,000 ML IV SCH (09:29)
[2016-09-28] MEDS: TIOTROPIUM BROMIDE 18 MCG INH INH SCH (09:29)
[2016-09-28] MEDS: SODIUM BICARBONATE 325 MG TAB PO SCH (09:33)
[2016-09-28] MEDS: FLUTICASONE PROPIONATE 50 MCG/ACT 16 GM NASAL SPRAY SCH (09:33)
[2016-09-28] MEDS: cefTRIAXone INJ 1,000 MG in SODIUM CHLORIDE 0.9% INJ 100 ML IV SCH (09:34)
[2016-09-28] MEDS: HEPARIN SODIUM - SQ 10,000 UNITS/ML VIAL SQ SCH (09:34)
[2016-09-28] MEDS: PANTOPRAZOLE SODIUM 40 MG VIAL IV PUSH SCH (09:35)
[2016-09-28] MEDS: ATORVASTATIN 40 MG TAB PO SCH (09:35)
[2016-09-28] MEDS: METOPROLOL TARTRATE 25 MG TAB PO SCH (09:36)
[2016-09-28] MEDS: CALCITRIOL 0.25 MCG CAP PO SCH (09:36)
--- NOTE | 2016-09-28 09:36 | HHI.DS ---
Discharge Summary Admission Date Sep 26, 2016 at 09:01 Discharge Date: Sep 28, 2016 Admitting Diagnosis SIRS, aspiration pneumonia, chest pain, shortness of breath (1) SIRS due to infectious process without acute organ dysfunction Diagnosis: Principal Plan: Pt had elevated WBC, increased lactic acid, tachycardia and tachypnea on admit. LLL pneumonia found on exam. Pt with known aspiration. Blood cultures are negative to date. Pt improved with ceftin/zithromax and IVF. Doing well at this time. Plan of care discussed with pt and his daughter, Ledy and pts . (2) Pneumonia Diagnosis: Principal Plan: Fever, cough, SOB, chest pain that started the night prior to admission. Continuing to feel better this AM after rocephin and zithromax. he has had intermittant fever and cough since the radiation therapy and has been on antibiotics x2 as outpatient for this, none in the past 2 months (usually improves with ceftin). He has been ambulatory in the room without difficulty and O2 walk test was wnl. No need for O2 as outpatient. Encouraged to use the incentive spirometer at home frequently during the day to improve air movement. (3) Aspiration into airway Diagnosis: Principal Plan: Ongoing since his laryngeal cancer dx and radiation therapy that started December 2015 (dx 09/2015). He had PEG tube until about June 2016 when it fell out and since he was tolerating PO well at that time we took out the tube. He has since worsened in his swallow and having more aspiration. Losing weight. I have discussed with Dr. Mehta. Pt has upper endoscopy scheduled for Friday with Dr. Cole. Okay to proceed with that procedure and encourage her to place a PEG tube at that time so we can supplement his PO intake and assist in med dosing. I spoke with the pharmacy and the gabapentin capsules can be opened and mixed with the thickened liquids or put in through a PEG tube. I have had several discussions with pt regarding the absolute need to thicken his foods/ fluids to a pudding consistancy and use the chin tuck method when eating. (4) Chest pain Diagnosis: Principal Plan: CPK wnl, troponins elevated, not with classic cardiac symptoms. Appreciate cardiology consult. Nuclear stress test with fixed anterior defect with EF of 45% unchanged from summer 2015 stress test. No longer with any chest pain. Will restart his lisinopril 5mg per day at discharge. Caution with dosing due to his renal function and potassium levels. He has known cardiac disease. He is normally on lipitor 80mg as outpatient. I have decreased the dose to 40mg for the next week due to the zithromax use. Will increase back to 80mg in 1 week or so. (5) Elevated troponin I level Diagnosis: Principal Plan: Chest pain was only with coughing. None since admit. Likely metabolic stress induced. (6) Diabetes mellitus with peripheral vascular disease Diagnosis: Secondary Plan: He has been off medications since his weight loss with the laryngeal cancer and has not required medications. hbgA1C has been well controlled. Continue to monitor in hospital but has been 155 or less since admit (other than initial elevated likely stress response) (7) CAD (coronary artery disease) Plan: He has had bypass surgery and stenting. Trying to treat medically as much as possible. Last bypass surgery was at [facility]. Followed locally with Dr. Narayanan. He has been on ASA, beta jessica as tolerated (BP and HR decreased after weight loss with radiation), and has been tolerating atorvastatin 80mg daily at home (lowered to 40mg with current antibitoics). (8) Chronic kidney disease, stage 4 (severe) Diagnosis: Secondary Plan: He follows with Dr. Pemberton. He takes a med to lower potassium (veltassa ) and also sodium bicarb. Will continue. Consultants Cardiology Procedures Nuclear stress test Brief History 66 yo WM with extensive past medical history and immunocompromised state from [place] s/p radiation therapy in 2016, diabetes, weight loss, aspiration who presented with fever, tachycardiac, tachypnea, cough, and chest pain. Admitted for septic evaluation and eval of chest pain. CBC/BMP: 09/28/16 0637 09/28/16 0637 Significant Findings Laboratory Tests Test 09/26/16 09/26/16 09/26/16 09/26/16 08:30 11:00 14:10 19:55 White Blood Count 16.2 TH/MM3 (4.0-11.0) Mean Corpuscular Volume 77.9 FL (80.0-100.0) Mean Corpuscular Hemoglobin 25.4 PG (27.0-34.0) Neutrophils (%) (Auto) 87.4 % (16.0-70.0) Lymphocytes (%) (Auto) 3.2 % (9.0-44.0) Basophils (%) (Auto) 3.7 % (0.0-2.0) Neutrophils # (Auto) 14.2 TH/MM3 (1.8-7.7) Lymphocytes # (Auto) 0.5 TH/MM3 (1.0-4.8) Basophils # (Auto) 0.6 TH/MM3 (0-0.2) Prothrombin Time 31.8 SEC (9.8-11.6) Activated Partial 38.0 SEC Thromboplast Time (24.3-30.1) Blood Urea Nitrogen 22 MG/DL (7-18) Creatinine 2.40 MG/DL (0.60-1.30) Estimat Glomerular Filtration 27 ML/MIN (>89) Rate Random Glucose 198 MG/DL (74-106) Aspartate Amino Transf 10 U/L (15-37) (AST/SGOT) Alkaline Phosphatase 152 U/L (45-117) Troponin I 0.44 NG/ML 0.70 NG/ML 0.59 NG/ML (0.02-0.05) (0.02-0.05) (0.02-0.05) Albumin 3.1 GM/DL (3.4-5.0) Lactic Acid Level 2.5 mmol/L 2.5 mmol/L (0.4-2.0) (0.4-2.0) Test 09/27/16 09/28/16 05:35 06:37 White Blood Count 12.9 TH/MM3 (4.0-11.0) Hemoglobin 12.3 GM/DL 12.1 GM/DL (13.0-17.0) (13.0-17.0) Hematocrit 36.7 % 36.4 % (39.0-51.0) (39.0-51.0) Mean Corpuscular Volume 78.5 FL 79.0 FL (80.0-100.0) (80.0-100.0) Mean Corpuscular Hemoglobin 26.4 PG 26.1 PG (27.0-34.0) (27.0-34.0) Neutrophils (%) (Auto) 83.7 % 80.0 % (16.0-70.0) (16.0-70.0) Lymphocytes (%) (Auto) 7.5 % (9.0-44.0) Neutrophils # (Auto) 10.8 TH/MM3 (1.8-7.7) Potassium Level 5.4 MEQ/L (3.5-5.1) Blood Urea Nitrogen 26 MG/DL (7-18) 29 MG/DL (7-18) Creatinine 2.30 MG/DL 2.20 MG/DL (0.60-1.30) (0.60-1.30) Estimat Glomerular Filtration 28 ML/MIN (>89) 30 ML/MIN (>89) Rate Random Glucose 119 MG/DL (74-106) Calcium Level 8.4 MG/DL 8.0 MG/DL (8.5-10.1) (8.5-10.1) Lymphocytes # (Auto) 0.8 TH/MM3 (1.0-4.8) Prothrombin Time 21.7 SEC (9.8-11.6) PE at Discharge gen: slightly cachectic WM, laying in bed. no distress, gravelly voice at his baseline, not coughing, able to move in bed without difficulty. CV: RRR, no longer tachy Lungs: left basilar crackles, no wheezing, no rhonchi, no longer tachypnic Abd: soft, NT Ext: no edema, good cap refill, toes pink, somewhat dry but no sores. notes burning feeling to the feet especially at night. Hospital Course Pts chest pain improved with treatment of the pneumonia. EKG remained unchanged despite increased troponin (no change in CPK). Nuclear stress test with fixed defect and EF 45%. WBC was initially 16 down to 8 at discharge. He had slight increase in potassium to 5.4 but was down to 4.8 after getting his veltassa yesterday. Overall clinically improved. Advised to hold the coumadin and aspirin until after his endoscopy on Friday. He will start the lovenox tomorrow and take that Friday but not on the day of his endoscopy. Pt Condition on Discharge: Fair Discharge Disposition: Discharge Home Discharge Instructions DIET: Follow Instructions for: Heart Healthy Diet, Diabetic Diet Additional Diet Instructions: mechanical soft with liquids thickened to pudding consistancy, low potassium diet, use chin tuck method with swallowing, crush all meds. May open the gabapentin capsule and mix into thickened liquids. Activities you can perform: Regular-No Restrictions Juliane Briggs MD Sep 28, 2016 09:36
[2016-09-28] MEDS: CITALOPRAM HYDROBROMIDE 20 MG TAB PO SCH (09:37)
[2016-09-28 12:00] VITALS: BP 141/73; PULSE 60; RESP 18; TEMP 96.6; O2SAT 96
[2016-09-28] MEDS ORDERED: AZITHROMYCIN INJ 500 MG in SODIUM CHLOR 0.9% 250 ML INJ 250 ML IV SCH (12:00)
== END 2016-09-28 14:20 | disposition home or self-care (01) | DRG 871 ==
LOC: PHED 08:17 → INTOOBSV 08:45 → PHEDA 08:45 → OBSVTOIN 09:01 → PH3B 12:35
PROVIDERS: ADMIT Family Medicine; ATTEND Family Medicine
DX: A41.9 Sepsis, unspecified organism (principal); J69.0 Pneumonitis due to inhalation of food and vomit; R64 Cachexia; N18.4 Chronic kidney disease, stage 4 (severe); I13.0 Hypertensive heart and chronic kidney disease with heart failure and stage 1 through stage 4 chronic kidney disease, or unspecified chronic kidney disease; I50.9 Heart failure, unspecified; R13.10 Dysphagia, unspecified; Q61.3 Polycystic kidney, unspecified; E11.22 Type 2 diabetes mellitus with diabetic chronic kidney disease; E87.5 Hyperkalemia; I25.10 Atherosclerotic heart disease of native coronary artery without angina pectoris; E78.5 Hyperlipidemia, unspecified; J44.9 Chronic obstructive pulmonary disease, unspecified; I73.9 Peripheral vascular disease, unspecified; E11.51 Type 2 diabetes mellitus with diabetic peripheral angiopathy without gangrene; E78.00 Pure hypercholesterolemia, unspecified; I25.2 Old myocardial infarction; M10.9 Gout, unspecified; K21.9 Gastro-esophageal reflux disease without esophagitis; F32.9 Major depressive disorder, single episode, unspecified; F41.9 Anxiety disorder, unspecified; Z68.24 Body mass index [BMI] 24.0-24.9, adult; Z79.4 Long term (current) use of insulin; Z79.01 Long term (current) use of anticoagulants; Z85.21 Personal history of malignant neoplasm of larynx; Z86.73 Personal history of transient ischemic attack (TIA), and cerebral infarction without residual deficits; Z87.891 Personal history of nicotine dependence; Z92.3 Personal history of irradiation; Z95.1 Presence of aortocoronary bypass graft; Z95.5 Presence of coronary angioplasty implant and graft; R74.8 Abnormal levels of other serum enzymes
CPT/HCPCS: 71010; 74230; 78452; 80048; 80053; 82550; 82948; 83605; 83880; 84484; 85025; 85610; 85730; 87040; 87804; 93005; 93017; 94620; A9502; C9113; G8996-GN; G8997-GN; G8998-GN; J0456; J0696; J1644; J2405; J2785; J7030; J7050

== ENCOUNTER 2016-12-07 05:39 | Inpatient (IN) | payer MEDICARE, MEDICAID ==
[2016-12-07] VITALS (9 sets, daily range): BP systolic 109–148; BP diastolic 52–71; PULSE 52–70; RESP 18–20; TEMP 97.4–98.4; O2SAT 93–99
[~2016-12-07] VITALS: Ht 182.9 cm; Wt 80.6 kg
[~2016-12-07 05:39] MED LIST changes: -ATOR20TA PO; -AZIT250T74 PO; +CEFT250S PO; -CEFU1TAB43 PO; -ECOT81TA2 PO; -LEVEMIR SQ; +LIPI40TA PO; +LISI-519 PO; -METO100 PO; +METO25TA3 PO; +PATI1POW PO; -PRIL40CA PO; +PROTPAK PO; +SODI325T PO; -WARF5 PO
[2016-12-07] MEDS ORDERED: CALC0.25 PO (06:00)
[2016-12-07] MEDS ORDERED: FLUT1SPR5 EACH NARE (06:00)
[2016-12-07] MEDS ORDERED: CITA10TA4 PO (06:00)
[2016-12-07] MEDS ORDERED: LORA-361 PO (06:00)
[2016-12-07] MEDS ORDERED: SPIRCAP INH (06:00)
[2016-12-07] MEDS ORDERED: VENTAER INH (06:00)
[2016-12-07] MEDS ORDERED: HYDR-3366 PO (06:00)
[2016-12-07] MEDS ORDERED: CYAN100015 BUCCAL (06:00)
[2016-12-07] MEDS ORDERED: GABA300C5 PO (06:00)
--- NOTE | 2016-12-07 06:20 | RADRPT ---
EXAM DATE/TIME: 12/07/2016 05:55 [facility] COMPARISON: CHEST SINGLE AP, September 26, 2016, 9:07. INDICATIONS : Fever. MEDICAL HISTORY : Hypertension. Chronic obstructive pulmonary disease. Congestive heart failure. Myocardial infarct ion. Hypercholesterdemia. Hperlipidemia.Polycystic kidney disease. Fibromyalgia SURGICAL HISTORY : CABG. Tonsillectomy. Cholecystectomy. Cardiac catherization with stents ENCOUNTER: Initial ACUITY: 1 day PAIN SCORE: 0/10 LOCATION: Bilateral chest FINDINGS: The patient is status post sternotomy. The heart size is normal. There is minimal increased density a t the left base. The right lung is clear. CONCLUSION: Suspected minimal left base atelectasis or consolidation. Tomi Bush MD on December 07, 2016 at 6:18 Board Certified Radiologist. This report was verified electronically.
[2016-12-07 06:23] LABS: AUTOMATED NEUTROPHIL # 14.1 TH/MM3 (1.8-7.7); BASOPHIL # 0.1 TH/MM3 (0-0.2); BASOPHIL % 0.4 % (0.0-2.0); EOSINOPHIL % 0.3 % (0.0-4.0); HEMATOCRIT 35.8 % (39.0-51.0); HEMO FLAGS DIFF FINAL; LYMPH % 4.8 % (9.0-44.0); LYMPHOCYTE # 0.8 TH/MM3 (1.0-4.8); MEAN CELL VOLUME 77.8 FL (80.0-100.0); MEAN CORPUSCULAR HEMOGLOBIN 25.2 PG (27.0-34.0); MEAN CORPUSCULAR HGB CONC 32.3 % (32.0-36.0); MONO % 5.7 % (0.0-8.0); NEUT % 88.8 % (16.0-70.0); PLATELET COUNT 200 TH/MM3 (150-450); RED CELL DISTRIBUTION WIDTH 16.6 % (11.6-17.2); WHITE BLOOD COUNT 15.9 TH/MM3 (4.0-11.0)
--- NOTE | 2016-12-07 06:28 | PD ---
HPI Chief Complaint: General Weakness Time Seen by Provider: 05:49 Travel History International Travel<30 days: No Contact w/Intl Traveler<30days: No Traveled to known affect area: No History of Present Illness HPI This 66-year-old man with a history of throat cancer presents to the emergency department with fever, weakness, hypotension, and hypoxia. Patient has a history of polycystic kidney disease, CAD and CABG, diabetes, hypertension, hyperlipidemia, and recent diagnosis of throat cancer in 2016. He completed multiple radiation therapies at [facility]. More recently he said trouble with aspiration. He reportedly was recently admitted to [facility] sounds like an esophageal dilatation related to esophageal strictures possibly from radiation therapy. reports he's had trouble with recurrent pneumonias related to aspiration. He doesn't really drink water. His post use thickener and his liquids. He had a enteric feeding tube in the past but it got pulled out. reports that he was feeling generally well over the past couple days. Tonight he felt very hot while they were resting and so she took his temperature , 101.4. He went to his bathroom but was pale diaphoretic and weak. She encouraged him to sit down. He didn't really improve and so she called the ambulance. EMS states that he had a blood pressure 70/40 on their arrival. He improved to 90 systolic with IV fluids. He also had a room air saturation in the low 80s. History Past Medical History Narrative Medical Throat cancer Polycystic kidney disease CAD, history of CABG Diabetes Hypertension hyperlipidemia Social History Alcohol Use: No Tobacco Use: No (QUIT 2008) Allergies-Medications (Allergen,Severity, Reaction): Coded Allergies: HMG-CoA Reductase Inhibitors (Verified Allergy, Severe, 12/07/16) Niacin (Verified Allergy, Severe, 12/07/16) CAUSES HIM TO FEEL HOT Reported Meds & Prescriptions Reported Meds & Active Scripts Active Protonix Liq (Pantoprazole Sodium) 40 Mg Pkt 40 Mg PO DAILY [place]elt[place] (Patiromer Sorbitex Calcium) 8.4 Gm Pow 8.4 Gm PO DAILY Lisinopril 5 Mg Tab 5 Mg PO DAILY Sodium Bicarbonate 325 Mg Tab 325 Mg PO Q12HR Metoprolol Tartrate 25 Mg Tab 25 Mg PO BID Lipitor (Atorvastatin Calcium) 40 Mg Tab 40 Mg PO DAILY Reported Spiriva Handihaler (Tiotropium Inh) 18 Mcg Cap 18 Mcg INH DAILY 1 capsule = 18 mcg B-12 (Cyanocobalamin) 1,000 Mcg Lozg 1,000 Mcg BUCCAL DAILY B-12 (Cyanocobalamin) 1,000 Mcg Lozg 1,000 Mcg BUCCAL DAILY Claritin (Loratadine) 10 Mg Tab 10 Mg PO DAILY Citalopram (Citalopram Hydrobromide) 10 Mg Tab 10 Mg PO DAILY Calcitriol 0.25 Mcg Cap 0.25 Mcg PO DAILY [place] (Hydrocodone-Acetaminophen) 10-325 Mg Tab 1 Tab PO Q6H PRN Gabapentin 300 Mg Cap 300 Mg PO BID Flonase Nasal [place] (Fluticasone Nasal [place]) 50 Mcg/Act [place] 50 Mcg EACH NARE DAILY Ventolin Hfa 18 GM Inh (Albuterol Sulfate) 90 Mcg/Act Aer 2 Puff INH Q4H PRN Review of Systems Except as stated in HPI: all other systems reviewed are Neg Physical Exam Narrative GENERAL: 66-year-old man, ill-appearing, pale, little bit clammy. SKIN: Clammy skin. HEAD: Atraumatic. Normocephalic. EYES: Pupils equal and round. No scleral icterus. No injection or drainage. Pale conjunctiva. ENT: No nasal bleeding or discharge. Mucous membranes pink and moist. NECK: Trachea midline. No JVD. CARDIOVASCULAR: Regular rate and rhythm. No murmur appreciated. RESPIRATORY: Coarse breath sounds. No obvious respiratory distress. No wheezing. GASTROINTESTINAL: Abdomen soft, non-tender, nondistended. Hepatic and splenic margins not palpable. MUSCULOSKELETAL: No obvious deformities. Decreased muscle bulk. NEUROLOGICAL: Awake and alert. Some confusion. No obvious cranial nerve deficits. Motor grossly within normal limits. Normal speech. Data Data Last Documented VS Vital Signs Date Time Temp Pulse Resp B/P Pulse Ox O2 Delivery O2 Flow Rate FiO2 12/07/16 06:02 89 Nasal Cannula 5 12/07/16 05:42 98.4 65 18 109/52 Orders Complete Blood Count With Diff (12/07/16 05:53) Comprehensive Metabolic Panel (12/07/16 05:53) Prothrombin Time / Inr (Pt) (12/07/16 05:53) Act Partial Throm Time (Ptt) (12/07/16 05:53) Lactic Acid Sepsis Protocol (12/07/16 05:53) Magnesium (Mg) (12/07/16 05:53) Lipase (12/07/16 05:53) Troponin I (12/07/16 05:53) Urinalysis - C+S If Indicated (12/07/16 05:53) Influenzae A/B Antigen (12/07/16 05:53) Blood Culture (12/07/16 05:53) Chest, Single Ap (12/07/16 05:53) Arterial Blood Gas (Abg) (12/07/16 05:53) Blood Glucose (12/07/16 05:53) Ecg Monitoring (12/07/16 05:53) Iv Access Insert/Monitor (12/07/16 05:53) Oximetry (12/07/16 05:53) Oxygen Administration (12/07/16 05:53) Urinary Catheter Insert/Apply (12/07/16 05:53) MDM Medical Decision Making Medical Screen Exam Complete: Yes Emergency Medical Condition: Yes Interpretation(s) Chest x-ray: Suspected minimal left base consolidation or atelectasis. LABS: CBC remarkable for moderate leukocytosis. Mild anemia. CMP: Lactate: Magnesium: Troponin: Lipase: Differential Diagnosis Sepsis, infection, aspiration, pneumonia, weakness, Narrative Course Medical decision making INITIAL: This a 66-year-old man who presents to the emergency department for just a few hours worth of weakness, hypertension, fever, and hypoxia suggestive of pneumonia. He's had trouble with aspiration recently. He looks a little bit ill. Blood pressure improved with IV fluids. We'll check labs, x-ray, IV fluids, reassess. Tito Robert MD Dec 07, 2016 06:28
[2016-12-07] MEDS ORDERED: SODIUM CHLOR 0.9% 1000 ML INJ 1,000 ML IV ONE ×2 (06:30)
[2016-12-07 06:36] LABS: APTT (PATIENT) 32.4 SEC (24.3-30.1); INTERNATIONAL NORMALIZED RATIO 1.6 RATIO; PROTHROMBIN TIME - PATIENT 18.1 SEC (9.8-11.6)
[2016-12-07 06:41] LABS: ALT (GPT) 19 U/L (12-78); ANION GAP 8 MEQ/L (5-15); AST (GOT) 19 U/L (15-37); BICARBONATE 23.5 MEQ/L (21.0-32.0); BLOOD UREA NITROGEN 27 MG/DL (7-18); CHLORIDE 107 MEQ/L (98-107); GLOMERULAR FILTRATION RATE 29 ML/MIN (>89); MAGNESIUM 1.8 MG/DL (1.5-2.5); POTASSIUM 4.5 MEQ/L (3.5-5.1); SODIUM (NA) 138 MEQ/L (136-145)
[2016-12-07 06:44] LABS: ALKALINE PHOSPHATASE 141 U/L (45-117); TOTAL BILIRUBIN ADULT 0.5 MG/DL (0.2-1.0)
[2016-12-07 06:47] LABS: BLOOD GAS BASE EXCESS -3.2 mmol/L (-2-2); BLOOD GAS CARBOXYHEMOGLOBIN 0.9 % (0-4); BLOOD GAS HCO3 22 mmol/L (22-26); BLOOD GAS METHEMOGLOBIN 0.5 % (0-2); BLOOD GAS O2 HGB SATURATION 87 % (90-100); BLOOD GAS OXYGEN CONTENT 14.3 Vol % (12.0-20.0); BLOOD GAS PCO2 40 mmHg (38-42); BLOOD GAS PO2 57 mmHG (61-120); BLOOD GAS TOTAL HGB 11.8 G/DL (12.0-16.0); TEMP CORR TO 98.6
[2016-12-07 06:48] LABS: CRITICAL VALUE YES; DRAW SITE RT RADIAL; NUMBER OF ARTERIAL PUNCTURES 1; STAT YES; ULNAR PULSE PRESENT
[2016-12-07] MEDS ORDERED: VANCOMYCIN INJ 1,500 MG in SODIUM CHLORID 0.9% 500 ML INJ 500 ML IV ONE (07:15)
[2016-12-07] MEDS ORDERED: CEFEPIME INJ 2,000 MG in SODIUM CHLORIDE 0.9% INJ 100 ML IV ONE (07:15)
--- NOTE | 2016-12-07 07:25 | RADRPT ---
EXAM DATE/TIME: 12/07/2016 06:51 [place] COMPARISON: CHEST PA & LAT, December 11, 2012, 7:59. CHEST SINGLE AP, September 26, 2016, 9:07. CHEST SINGLE AP, Nov, 5:55. INDICATIONS : Dyspnea; possible pneumonia. RADIATION DOSE: 5.78 CTDIvol (mGy) MEDICAL HISTORY : Chronic obstructive pulmonary disease. Congestive heart failure. Cerebrovascular disease. Hypertensio n, renal insufficiency SURGICAL HISTORY : CABG Cholecystectomy.Coronary artery stent. ENCOUNTER: Initial ACUITY: 1 day PAIN SCALE: 5/10 LOCATION: chest TECHNIQUE: Volumetric scanning of the chest was performed. Using automated exposure control and adjustment of t he mA and/or kV according to patient size, radiation dose was kept as low as reasonably achievable to obtain optimal diagnostic quality images. FINDINGS: LUNGS: There is no consolidation or pneumothorax. No concerning pulmonary nodule is visualized. Left basila r atelectasis. This has not significantly changed as compared to the exam of September 2016 and may ref lect an area of scarring. There is mild centrilobular emphysematous change seen within the lung apice s. PLEURAE: There is no pleural thickening or pleural effusion. MEDIASTINUM: The heart and great vessels demonstrate no acute abnormality. There is no mediastinal or hilar lymph adenopathy. Significant coronary artery disease is noted. Intact median sternotomy wires. AXILLAE: Within normal limits. No lymphadenopathy. MUSCULOSKELETAL: Within normal limits for patient age. MISCELLANEOUS: The imaged portion of the abdomen demonstrates numerous to count bilateral renal cysts consistent wit h polycystic kidney disease. CONCLUSION: 1. No evidence of pneumonia. Left basilar atelectasis versus scar. Mild centrilobular emphysematous c hange. 2. Polycystic kidney disease. Misti Leung MD on December 07, 2016 at 7:17 Board Certified Radiologist. This report was verified electronically.
[2016-12-07 07:43] LABS: BACTERIA, URINE RARE /hpf; BLOOD, URINE NEG (NEG); COMMENT (UR) CATH-CULTURE IND; CULTURE IF INDICATED CATH CULTURE IND; GLUCOSE,URINE NEG (NEG); KETONE, URINE NEG (NEG); MUCUS URINE FEW /lpf (OCC); NITRITE,URINE NEG (NEG); PH, URINE 5.5 (5.0-8.5); URINE COLOR YELLOW (YELLW/STRAW)
--- NOTE | 2016-12-07 07:50 | PD ---
Physical Exam Date Seen by Provider: Dec 07, 2016 Time Seen by Provider: 07:44 Narrative 60-year-old male came to the emergency room with history of fever, hypotension, generalized weakness. Patient has history of throat cancer and has radiation esophagitis. He has had multiple aspiration pneumonias in the past. He was seen by the previous ER physician who ordered labs, chest x-ray and CAT scan of the chest. IV antibiotic was initiated. Patient's initial blood pressure was 70 systolic. However the current blood pressure is 125. My sign out was to follow-up on the CAT scan report and eventually admitted the patient. CAT scan shows some atelectasis but no major pneumonia. Patient does have elevated white count. I have put a call out for the hospitalist. Awaiting for them to call back for admission. Data Data Last Documented VS Vital Signs Date Time Temp Pulse Resp B/P Pulse Ox O2 Delivery O2 Flow Rate FiO2 12/07/16 07:32 54 20 93 Nasal Cannula 3 12/07/16 07:32 140/63 Orders Complete Blood Count With Diff (12/07/16 05:53) Comprehensive Metabolic Panel (12/07/16 05:53) Prothrombin Time / Inr (Pt) (12/07/16 05:53) Act Partial Throm Time (Ptt) (12/07/16 05:53) Lactic Acid Sepsis Protocol (12/07/16 05:53) Magnesium (Mg) (12/07/16 05:53) Lipase (12/07/16 05:53) Troponin I (12/07/16 05:53) Urinalysis - C+S If Indicated (12/07/16 05:53) Influenzae A/B Antigen (12/07/16 05:53) Blood Culture (12/07/16 05:53) Chest, Single Ap (12/07/16 05:53) Arterial Blood Gas (Abg) (12/07/16 05:53) Blood Glucose (12/07/16 05:53) Ecg Monitoring (12/07/16 05:53) Iv Access Insert/Monitor (12/07/16 05:53) Oximetry (12/07/16 05:53) Oxygen Administration (12/07/16 05:53) Urinary Catheter Insert/Apply (12/07/16 05:53) Sodium Chlor 0.9% 1000 Ml Inj (Ns 1000 M (12/07/16 06:30) Sodium Chlor 0.9% 1000 Ml Inj (Ns 1000 M (12/07/16 06:30) Ct Thorax/ Chest Wo Iv Contras (12/07/16 ) Vancomycin Inj (Vancomycin Inj) (12/07/16 07:15) Cefepime Inj (Maxipime Inj) (12/07/16 07:15) Urine Culture (12/07/16 07:25) Admit Order (Ed Use Only) (12/07/16 08:12) Labs Laboratory Tests Test 12/07/16 12/07/16 12/07/16 06:00 06:30 07:25 White Blood Count 15.9 TH/MM3 Red Blood Count 4.60 MIL/MM3 Hemoglobin 11.6 GM/DL Hematocrit 35.8 % Mean Corpuscular Volume 77.8 FL Mean Corpuscular Hemoglobin 25.2 PG Mean Corpuscular Hemoglobin 32.3 % Concent Red Cell Distribution Width 16.6 % Platelet Count 200 TH/MM3 Mean Platelet Volume 9.1 FL Neutrophils (%) (Auto) 88.8 % Lymphocytes (%) (Auto) 4.8 % Monocytes (%) (Auto) 5.7 % Eosinophils (%) (Auto) 0.3 % Basophils (%) (Auto) 0.4 % Neutrophils # (Auto) 14.1 TH/MM3 Lymphocytes # (Auto) 0.8 TH/MM3 Monocytes # (Auto) 0.9 TH/MM3 Eosinophils # (Auto) 0.0 TH/MM3 Basophils # (Auto) 0.1 TH/MM3 CBC Comment DIFF FINAL Differential Comment Prothrombin Time 18.1 SEC Prothromb Time International 1.6 RATIO Ratio Activated Partial 32.4 SEC Thromboplast Time Sodium Level 138 MEQ/L Potassium Level 4.5 MEQ/L Chloride Level 107 MEQ/L Carbon Dioxide Level 23.5 MEQ/L Anion Gap 8 MEQ/L Blood Urea Nitrogen 27 MG/DL Creatinine 2.25 MG/DL Estimat Glomerular Filtration 29 ML/MIN Rate Random Glucose 140 MG/DL Lactic Acid Level 1.9 mmol/L Calcium Level 8.2 MG/DL Magnesium Level 1.8 MG/DL Total Bilirubin 0.5 MG/DL Aspartate Amino Transf 19 U/L (AST/SGOT) Alanine Aminotransferase 19 U/L (ALT/SGPT) Alkaline Phosphatase 141 U/L Troponin I 0.04 NG/ML Total Protein 6.6 GM/DL Albumin 2.9 GM/DL Lipase 105 U/L Blood Gas Puncture Site RT RADIAL Blood Gas Patient Temperature 98.6 Blood Gas HCO3 22 mmol/L Blood Gas Base Excess -3.2 mmol/L Blood Gas Oxygen Saturation 87 % Arterial Blood pH 7.35 Arterial Blood Partial 40 mmHg Pressure CO2 Arterial Blood Partial 57 mmHG Pressure O2 Arterial Blood Oxygen Content 14.3 Vol % Arterial Blood 0.9 % Carboxyhemoglobin Arterial Blood Methemoglobin 0.5 % Blood Gas Hemoglobin 11.8 G/DL Oxygen Delivery Device Urine Color YELLOW Urine Turbidity CLEAR Urine pH 5.5 Urine Specific [place] 1.014 Urine Protein 30 mg/dL Urine Glucose (UA) NEG mg/dL Urine Ketones NEG mg/dL Urine Occult Blood NEG Urine Nitrite NEG Urine Bilirubin NEG Urine Urobilinogen 2.0 MG/DL Urine Leukocyte Esterase NEG Urine RBC LESS THAN 1 /hpf Urine WBC 2 /hpf Urine Bacteria RARE /hpf Urine Mucus FEW /lpf Microscopic Urinalysis Comment CATH-CULTURE IND MDM Supervised Visit with SANG: No Interpretation(s) Twelve-lead EKG was reviewed by me. Normal sinus rhythm, left axis deviation, bradycardia, nonspecific ST-T wave changes. Heart rate of 52 bpm. Diagnosis Primary Impression: Sepsis Qualified Code: A41.9 - Sepsis, due to unspecified organism Admitting Information Admitting Physician Requests: Admit Scripts Nutritional Supplements (Glucerna 1.0 William)1 Liq [id number] Ml PEG BID #100 ML Bolus feeding 240 mL @ 8 PM and 11 PM Prov:Dakota Torres MD 12/10/16 Nutritional Supplements (Glucerna 1.0 William)1 Liq [id number] Ml PEG TID #100 ML Bolus feeding 360ml @ 8 AM, 12 PM and 4 PM Prov:Dakota Torres MD 12/10/16 Feeding Supplies (Feeding Bottles/Standard)1 Mis Mis #10 Units Prov:Dakota Torres MD 12/10/16 Syringe (Disposable) (Monoject Piston Syringe/C 140 ml)1 Mis Mis #10 Unit Prov:Dakota Torres MD 12/10/16 Jerome Silva MD Dec 07, 2016 07:50
[2016-12-07] MEDS ORDERED: SODIUM CHLORIDE 0.9% FLUSH 10 ML FLUSH IV FLUSH PRN (09:30)
[2016-12-07] MEDS ORDERED: RESP: ALBUTEROL 2.5 MG/IPRATROPIUM 0.5 MG NEB (PRN) NEB (09:30)
[2016-12-07] MEDS ORDERED: NALOXONE HCL 0.4 MG/ML AMP IV PRN (09:30)
[2016-12-07] MEDS ORDERED: ONDANSETRON HCL 4 MG/2 ML VIAL IVP PRN (09:30)
[2016-12-07] MEDS ORDERED: ACETAMINOPHEN 325 MG TAB PO PRN ×2 (09:30)
--- NOTE | 2016-12-07 09:39 | HHI.HP ---
[facility] Juliane Briggs MD Admission Diagnosis sepsis Diagnoses: (1) Severe sepsis Diagnosis: Principal (2) CKD (chronic kidney disease), stage IV (3) Diabetes mellitus with peripheral vascular disease (4) CAD (coronary artery disease) (5) Hypotension (6) Normochromic normocytic anemia Chief Complaint: Dizziness, fever Travel History International Travel<30 Days: No Contact w/Intl Traveler <30 Da: No Traveled to Known Affected Are: No Sepsis Criteria SIRS Criteria (2 or more): Temp > 100.9 or < 96.8, WBC > 84520, < 4000 or > 10 % bands Severe Sepsis (+one): Hypotension Criteria Outcome: Meets sepsis criteria, Meets severe sepsis criteria History of Present Illness 66-year-old male with a history of laryngeal cancer status post radiation therapy completed 03/18/16 and currently on remission was brought to the emergency department for evaluation of acute onset of dizziness, weakness, hypotension and one febrile episode with temperature of 101.4 along with dry cough. Per patient's 's account, he has been feeling well for the past couple days until last night and patient felt very hot with temperature of 11.4 at 3 AM for which was treated with 2 tablet of 500 mg Tylenol. In a running for 30 a.m. as patient was walking to bathroom he felt pale and became diaphoretic with a BP of 100/50 heart rate of 81 patient became dizzy and has no loss of consciousness. EMS was called and patient was found to have a BP of 70/40 which subsequently improved with IV fluid to 90 systolic. He has oxygen saturation in the lower 80s on arrival in ED. She have prior history of recurrent aspiration pneumonia. Had a G-tube placed in December 2015 which was subsequently removed back in June 2016. During My exam, he denies any chest pain and vitals appear to be stable Review of Systems Other 12 systems reviewed and are negative except for the one mentioned in history of present illness Past Family Social History Past Medical History Laryngeal cancer diagnosed September 2015 and status post radiation therapy History of aspiration pneumonia Polycystic kidney disease CAD, history of CABG Diabetes Hypertension hyperlipidemia History of nephrolithiasis Chronic kidney disease stage IV PVD GERD Past Surgical History Cardiac stent CABG 2012 Cholecystectomy 2010 Bilateral femoral bypass 2008 Kidney stents 2008 Shoulder surgery at age 14 Reported Medications Protonix Liq (Pantoprazole Sodium) 40 Mg Pkt 40 Mg PO DAILY [place] (Patiromer Sorbitex Calcium) 8.4 Gm Pow 8.4 Gm PO DAILY Lisinopril 5 Mg Tab 5 Mg PO DAILY Sodium Bicarbonate 325 Mg Tab 325 Mg PO Q12HR Metoprolol Tartrate 25 Mg Tab 25 Mg PO BID Lipitor (Atorvastatin Calcium) 40 Mg Tab 40 Mg PO DAILY Reported Spiriva Handihaler (Tiotropium Inh) 18 Mcg Cap 18 Mcg INH DAILY 1 capsule = 18 mcg B-12 (Cyanocobalamin) 1,000 Mcg Lozg 1,000 Mcg BUCCAL DAILY B-12 (Cyanocobalamin) 1,000 Mcg Lozg 1,000 Mcg BUCCAL DAILY Claritin (Loratadine) 10 Mg Tab 10 Mg PO DAILY Citalopram (Citalopram Hydrobromide) 10 Mg Tab 10 Mg PO DAILY Calcitriol 0.25 Mcg Cap 0.25 Mcg PO DAILY [place] (Hydrocodone-Acetaminophen) 10-325 Mg Tab 1 Tab PO Q6H PRN Gabapentin 300 Mg Cap 300 Mg PO BID Flonase Nasal [place] (Fluticasone Nasal [place]) 50 Mcg/Act [place] 50 Mcg EACH NARE DAILY Ventolin Hfa 18 GM Inh (Albuterol Sulfate) 90 Mcg/Act Aer 2 Puff INH Q4H PRN Allergies: Coded Allergies: HMG-CoA Reductase Inhibitors (Verified Allergy, Severe, 12/07/16) Niacin (Verified Allergy, Severe, 12/07/16) CAUSES HIM TO FEEL HOT Family History Both parents had hypertension, [place] Father had Polycystic kidney disease One sister with depression Physical Exam Vital Signs Vital Signs Date Time Temp Pulse Resp B/P Pulse Ox O2 Delivery O2 Flow Rate FiO2 12/07/16 09:04 61 18 144/66 96 Nasal Cannula 3 12/07/16 07:32 54 20 93 Nasal Cannula 3 12/07/16 07:32 52 20 140/63 93 Nasal Cannula 3 12/07/16 06:54 54 18 125/60 95 Nasal Cannula 5 12/07/16 06:02 89 Nasal Cannula 5 12/07/16 05:42 98.4 65 18 109/52 Physical Exam GENERAL: This is a well-nourished, well-developed patient, in no apparent distress. SKIN: No rashes, ecchymoses or lesions. Cool and dry. HEAD: Atraumatic. Normocephalic. No temporal or scalp tenderness. EYES: Pupils equal round and reactive. Extraocular motions intact. No scleral icterus. No injection or drainage. ENT: Nose without bleeding, purulent drainage or septal hematoma. Throat without erythema, tonsillar hypertrophy or exudate. Uvula midline. Airway patent. NECK: Trachea midline. No JVD or lymphadenopathy. Supple, nontender, no meningeal signs. CARDIOVASCULAR: Regular rate and rhythm without murmurs, gallops, or rubs. RESPIRATORY: Clear to auscultation. Breath sounds equal bilaterally. No wheezes , rales, or rhonchi. GASTROINTESTINAL: Abdomen soft, non-tender, nondistended. No hepato-splenomegaly , or palpable masses. No guarding. MUSCULOSKELETAL: Extremities without clubbing, cyanosis, or edema. No joint tenderness, effusion, or edema noted. No calf tenderness. Negative Homans sign bilaterally. NEUROLOGICAL: Awake and alert. Cranial nerves II through XII intact. Motor and sensory grossly within normal limits. Five out of 5 muscle strength in all muscle groups. Normal speech. Laboratory Laboratory Tests Test 12/07/16 12/07/16 12/07/16 06:00 06:30 07:25 White Blood Count 15.9 Red Blood Count 4.60 Hemoglobin 11.6 Hematocrit 35.8 Mean Corpuscular Volume 77.8 Mean Corpuscular Hemoglobin 25.2 Mean Corpuscular Hemoglobin 32.3 Concent Red Cell Distribution Width 16.6 Platelet Count 200 Mean Platelet Volume 9.1 Neutrophils (%) (Auto) 88.8 Lymphocytes (%) (Auto) 4.8 Monocytes (%) (Auto) 5.7 Eosinophils (%) (Auto) 0.3 Basophils (%) (Auto) 0.4 Neutrophils # (Auto) 14.1 Lymphocytes # (Auto) 0.8 Monocytes # (Auto) 0.9 Eosinophils # (Auto) 0.0 Basophils # (Auto) 0.1 CBC Comment DIFF FINAL Differential Comment Prothrombin Time 18.1 Prothromb Time International 1.6 Ratio Activated Partial 32.4 Thromboplast Time Sodium Level 138 Potassium Level 4.5 Chloride Level 107 Carbon Dioxide Level 23.5 Anion Gap 8 Blood Urea Nitrogen 27 Creatinine 2.25 Estimat Glomerular Filtration 29 Rate Random Glucose 140 Lactic Acid Level 1.9 Calcium Level 8.2 Magnesium Level 1.8 Total Bilirubin 0.5 Aspartate Amino Transf 19 (AST/SGOT) Alanine Aminotransferase 19 (ALT/SGPT) Alkaline Phosphatase 141 Troponin I 0.04 Total Protein 6.6 Albumin 2.9 Lipase 105 Blood Gas Puncture Site RT RADIAL Blood Gas Patient Temperature 98.6 Blood Gas HCO3 22 Blood Gas Base Excess -3.2 Blood Gas Oxygen Saturation 87 Arterial Blood pH 7.35 Arterial Blood Partial 40 Pressure CO2 Arterial Blood Partial 57 Pressure O2 Arterial Blood Oxygen Content 14.3 Arterial Blood 0.9 Carboxyhemoglobin Arterial Blood Methemoglobin 0.5 Blood Gas Hemoglobin 11.8 Oxygen Delivery Device Urine Color YELLOW Urine Turbidity CLEAR Urine pH 5.5 Urine Specific [place] 1.014 Urine Protein 30 Urine Glucose (UA) NEG Urine Ketones NEG Urine Occult Blood NEG Urine Nitrite NEG Urine Bilirubin NEG Urine Urobilinogen 2.0 Urine Leukocyte Esterase NEG Urine RBC LESS THAN 1 Urine WBC 2 Urine Bacteria RARE Urine Mucus FEW Microscopic Urinalysis Comment CATH-CULTURE IND Date/Time Procedure Status Source Growth 12/07/16 07:25 Urine Culture Received Urine Clean Catch Pending 12/07/16 06:35 Influenza Types A,B Antigen (BECCA) - Final Complete Nasal Washing NEGATIVE FOR FLU A AND B ANTIGEN.... 12/07/16 06:10 Aerobic Blood Culture Received Blood Peripheral Pending 12/07/16 06:10 Anaerobic Blood Culture Received Blood Peripheral Pending Result Diagram: 12/07/16 0600 12/07/16 0600 Imaging Last Impressions Chest X-Ray 12/07/16 0553 Signed Impressions: Service Date/Time: Wednesday, December 07, 2016 05:55 - CONCLUSION: Suspected minimal left base atelectasis or consolidation. Tomi Bush MD Chest CT 12/07/16 0000 Signed Impressions: Service Date/Time: Wednesday, December 07, 2016 06:51 - CONCLUSION: 1. No evidence of pneumonia. Left basilar atelectasis versus scar. Mild centrilobular emphysematous change. 2. Polycystic kidney disease. Misti Leung MD Assessment and Plan Problem List: (1) Severe sepsis ICD Code: A41.9 Status: Acute (2) Hypotension ICD Code: I95.9 Status: Acute (3) Normochromic normocytic anemia ICD Code: D64.9 Status: Acute (4) CKD (chronic kidney disease), stage IV ICD Code: N18.4 Status: Acute (5) Diabetes mellitus with peripheral vascular disease ICD Code: E11.51 Status: Chronic (6) Acute respiratory failure ICD Code: J96.00 Status: Acute (7) COPD (chronic obstructive pulmonary disease) ICD Code: J44.9 Status: Acute Assessment and Plan 66-year-old man with Severe sepsis: Meets severe sepsis criteria, Temp > 100.9 or < 96.8, WBC > 73231, < 4000 or > 10% bands and Hypotension; source likely respiratory. Status post cefepime and vancomycin in ED pending culture reports. UA, Influenza a and B antigens negative, will check urinary antigen for Legionella and pneumococcal History of recurrent aspiration pneumonia: Chest x-ray initially ordered and noted and review by me with finding of Suspected minimal left base atelectasis or consolidation; however CT chest noted and reviewed by me with No evidence of pneumonia. Left basilar atelectasis versus scar. Patient currently severe sepsis, will continue treatment with cefepime IV. Check sputum culture Acute respiratory failure: Both chest x-ray and CT chest noted and review, patient currently on 3 L nasal cannula. DuoNeb when necessary and resume treatment for COPD Hypotension: Likely from above severe sepsis, continue with IV fluid hydration, hold oral anti-hypertensive medication History of chronic kidney disease stage IV: Stable, continue to monitor BUN and creatinine. Avoid all nephrotoxic drugs History diabetes type 2 with peripheral vascular disease: Hold all oral hypoglycemic agents, start insulin sliding scale with fingerstick blood glucose monitoring. Check A1c Normochromic normocytic anemia: Stable, with no sign of GI bleed. Monitor H&H and transfuse accordingly History of COPD: Current exacerbation, resume outpatient medications, DuoNeb when necessary History of laryngeal cancer: Currently on remission. Consider oncology consultation DVT prophylaxis: Bilateral SCDs Code Status Full code Discussed Condition With Patient, , ED physician Physician Certification 2 Midnight Certification Type: Admission for Inpatient Services Order for Inpatient Services The services are ordered in accordance with Medicare regulations or non- Medicare payer requirements, as applicable. In the case of services not specified as inpatient-only, they are appropriately provided as inpatient services in accordance with the 2-midnight benchmark. Estimated LOS (days): 2 days is the estimated time the patient will need to remain in the hospital, assuming treatment plan goals are met and no additional complications. Post-Hospital Plan: Not yet determined Dakota Torres MD Dec 07, 2016 09:39
[2016-12-07] MEDS ORDERED: GLUCAGON 1 MG/ML VIAL OTHER PRN (10:15)
[2016-12-07] MEDS ORDERED: DEXTROSE 50% IN WATER 50 ML VIAL(D50) IV PUSH PRN (10:15)
[2016-12-07] MEDS ORDERED: PILL SPLITTER OTHER PRN (10:45)
[2016-12-07] MEDS: INSULIN ASPART SUPPLEMENTAL SCALE SQ SCH ×3 (11:36→21:00)
[2016-12-07] MEDS: SODIUM CHLOR 0.9% 1000 ML INJ 1,000 ML IV SCH ×2 (11:37→21:00)
--- NOTE | 2016-12-07 14:45 | EKG ---
Date Performed: 12/07/2016 Time Performed: 07:14:05 PTAGE: 66 years EKG: SINUS BRADYCARDIA NONSPECIFIC T-WAVE ABNORMALITY Compared to prior tracing no significant c hange BORDERLINE ECG PREVIOUS TRACING : 09/26/2016 22.17 DOCTOR: Francisco Chew Interpretating Date/Time 12/07/2016 14:41:59
[2016-12-07] MEDS: ACETAMINOPHEN/HYDROcodone 325 MG/10 MG TAB PO PRN ×2 (17:33→22:04)
--- NOTE | 2016-12-07 18:43 | HHI.PR ---
Addendum to Inpatient Note Addendum Reason: Additional Documentation Additional Information Courtesy visit from his primary: He has had persistant swallowing issues since his laryngeal cancer dx. He is seeing [facility] and has documented asymptomatic aspiration on thin liquids. He should be thicking ALL liquids to honey consistany. I see that he has 3 bottles of diet coke on his tray. He insists that he can swallow soda without a problem. I really believe that aspiration and possibly sleep apnea are triggering his nocturnal hypoxia, hypotension and syncope episodes (this is the second in the past few months and there have been others prior to that after his PEG tube came out). I tried to get Dr. Cole to reinsert his PEG tube a few weeks ago but that didn't happen when he had his upper endoscopy--just an esophageal dilation. He continues to lose weight. He also has claudication to the right leg but has been resistant to going back for revascularization which he needs to do. He has an upcoming appt with Dr. Narayanan who revascularized his left leg prior to his laryngeal CA dx. He notes that pain keeps him up at night and he can't walk far because of it. I have put in an order for thickened liquids for his safety. Juliane Ruvalcaba MD Dec 07, 2016 18:43
[2016-12-07] MEDS: SODIUM CHLORIDE 0.9% FLUSH 10 ML FLUSH IV FLUSH SCH (21:00)
[2016-12-07] MEDS: CEFEPIME INJ 2,000 MG in SODIUM CHLORIDE 0.9% INJ 100 ML IV SCH (22:02)
[2016-12-07] MEDS: LACTOBACILLUS ACIDOPHILUS TAB PO SCH (22:03)
[2016-12-07] MEDS: METOPROLOL TARTRATE 25 MG TAB PO SCH (22:04)
[2016-12-08] VITALS (8 sets, daily range): BP systolic 131–161; BP diastolic 62–74; PULSE 51–75; RESP 18–20; TEMP 97.4–98.6; O2SAT 93–98
[2016-12-08] MEDS: INSULIN ASPART SUPPLEMENTAL SCALE SQ SCH ×4 (05:10→20:56)
[2016-12-08 07:32] LABS: AUTOMATED NEUTROPHIL # 6.8 TH/MM3 (1.8-7.7); BASOPHIL % 0.2 % (0.0-2.0); EOSINOPHIL # 0.1 TH/MM3 (0-0.4); EOSINOPHIL % 1.3 % (0.0-4.0); HEMATOCRIT 31.7 % (39.0-51.0); HEMO FLAGS DIFF FINAL; LYMPH % 9.9 % (9.0-44.0); LYMPHOCYTE # 0.8 TH/MM3 (1.0-4.8); MEAN CELL VOLUME 77.8 FL (80.0-100.0); MEAN CORPUSCULAR HEMOGLOBIN 25.3 PG (27.0-34.0); MEAN CORPUSCULAR HGB CONC 32.5 % (32.0-36.0); MONO % 7.4 % (0.0-8.0); NEUT % 81.2 % (16.0-70.0); PLATELET COUNT 157 TH/MM3 (150-450); RED BLOOD COUNT 4.07 MIL/MM3 (4.50-5.90); RED CELL DISTRIBUTION WIDTH 16.3 % (11.6-17.2); WHITE BLOOD COUNT 8.4 TH/MM3 (4.0-11.0)
[2016-12-08 07:59] LABS: ALKALINE PHOSPHATASE 114 U/L (45-117); ALT (GPT) 14 U/L (12-78); ANION GAP 7 MEQ/L (5-15); AST (GOT) 15 U/L (15-37); BICARBONATE 23.2 MEQ/L (21.0-32.0); BLOOD UREA NITROGEN 26 MG/DL (7-18); CHLORIDE 114 MEQ/L (98-107); GLOMERULAR FILTRATION RATE 40 ML/MIN (>89); POTASSIUM 4.1 MEQ/L (3.5-5.1); SODIUM (NA) 144 MEQ/L (136-145); TOTAL BILIRUBIN ADULT 0.6 MG/DL (0.2-1.0)
[2016-12-08] MEDS: CEFEPIME INJ 2,000 MG in SODIUM CHLORIDE 0.9% INJ 100 ML IV SCH ×2 (08:32→20:56)
[2016-12-08] MEDS: SODIUM CHLOR 0.9% 1000 ML INJ 1,000 ML IV SCH ×2 (08:33→17:00)
[2016-12-08] MEDS: CITALOPRAM HYDROBROMIDE 20 MG TAB PO SCH (08:34)
[2016-12-08] MEDS: PANTOPRAZOLE SOD 40 MG DELAYED RELEASE TAB PO SCH (08:34)
[2016-12-08] MEDS: METOPROLOL TARTRATE 25 MG TAB PO SCH ×2 (08:34→20:55)
[2016-12-08] MEDS: LACTOBACILLUS ACIDOPHILUS TAB PO SCH ×2 (08:34→20:55)
[2016-12-08] MEDS: LORATADINE 10 MG TAB PO SCH (08:34)
[2016-12-08] MEDS: ATORVASTATIN 40 MG TAB PO SCH (08:35)
[2016-12-08] MEDS: SODIUM CHLORIDE 0.9% FLUSH 10 ML FLUSH IV FLUSH SCH ×2 (08:38→20:55)
[2016-12-08] MEDS: CALCITRIOL 0.25 MCG CAP PO SCH (08:45)
[2016-12-08] MEDS: TIOTROPIUM BROMIDE 18 MCG INH INH SCH (08:45)
[2016-12-08] MEDS ORDERED: CYANOCOBALAMIN 1,000 MCG TAB PO SCH (09:00)
[2016-12-08] MEDS ORDERED: CYANOCOBALAMIN 1000 MCG PO SCH (09:00)
--- NOTE | 2016-12-08 11:20 | HHI.PR ---
Subjective Remarks Follow-up severe sepsis/dysphagia/ 12/08/16-patient seen and examined ; no syncopal episodes since admission, currently afebrile. Denies any chest pain or shortness of breath. Patient was seen by his PCP on 12/07/16 in hospital and few recommendations made Objective Vitals Vital Signs Date Time Temp Pulse Resp B/P Pulse Ox O2 Delivery O2 Flow Rate FiO2 12/08/16 10:50 55 12/08/16 08:00 98.0 57 18 150/70 98 12/08/16 04:00 97.6 51 20 131/62 98 12/08/16 00:00 97.5 54 20 148/72 96 12/07/16 20:06 55 12/07/16 20:00 97.5 56 20 148/71 98 12/07/16 16:04 98.3 59 18 132/68 99 12/07/16 12:04 97.4 70 18 124/61 99 I/O 12/07/16 12/07/16 12/07/16 12/08/16 12/08/16 12/08/16 07:00 15:00 23:00 07:00 15:00 23:00 Intake Total 280 ml 1880 ml 905 ml Output Total 300 ml Balance -20 ml 1880 ml 905 ml Intake Oral 280 ml 120 ml IV Total 1880 ml 785 ml Output Urine Total 300 ml # Bowel Movements 0 Result Diagram: 12/08/16 0553 12/08/16 0553 Imaging Last Impressions Chest X-Ray 12/07/16 0553 Signed Impressions: Service Date/Time: Wednesday, December 07, 2016 05:55 - CONCLUSION: Suspected minimal left base atelectasis or consolidation. Tomi Bush MD Chest CT 12/07/16 0000 Signed Impressions: Service Date/Time: Wednesday, December 07, 2016 06:51 - CONCLUSION: 1. No evidence of pneumonia. Left basilar atelectasis versus scar. Mild centrilobular emphysematous change. 2. Polycystic kidney disease. Misti Leung MD Objective Remarks GENERAL: NAD SKIN: Warm and dry. HEAD: Normocephalic. EYES: No scleral icterus. No injection or drainage. NECK: Supple, trachea midline. No JVD or lymphadenopathy. CARDIOVASCULAR: Regular rate and rhythm without murmurs, gallops, or rubs. RESPIRATORY: Breath sounds equal bilaterally. No accessory muscle use. GASTROINTESTINAL: Abdomen soft, non-tender, nondistended. MUSCULOSKELETAL: No cyanosis, or edema. BACK: Nontender without obvious deformity. No CVA tenderness. A/P Problem List: (1) Severe sepsis ICD Code: A41.9 Status: Acute (2) Hypotension ICD Code: I95.9 Status: Acute (3) Normochromic normocytic anemia ICD Code: D64.9 Status: Acute (4) CKD (chronic kidney disease), stage IV ICD Code: N18.4 Status: Acute (5) Diabetes mellitus with peripheral vascular disease ICD Code: E11.51 Status: Chronic (6) Acute respiratory failure ICD Code: J96.00 Status: Acute (7) COPD (chronic obstructive pulmonary disease) ICD Code: J44.9 Status: Acute (8) Dysphagia ICD Code: R13.10 Status: Acute (9) Claudication of right lower extremity ICD Code: I73.9 Status: Acute Assessment and Plan 66-year-old man with Severe sepsis: Meets severe sepsis criteria, source likely respiratory. Status post cefepime and vancomycin in ED pending culture reports. UA, Influenza a and B antigens as well as urinary antigen for Legionella and pneumococcal or negative History of recurrent aspiration pneumonia: Chest x-ray initially ordered and noted and review by me with finding of Suspected minimal left base atelectasis or consolidation; however CT chest with No evidence of pneumonia. Left basilar atelectasis versus scar. continue treatment with cefepime IV as leukocytosis resolved. Check sputum culture Acute respiratory failure: Resolved. Both chest x-ray and CT chest noted and review, patient currently on 3 L nasal cannula. DuoNeb when necessary and continue treatment for COPD Hypotension: Likely from above severe sepsis, resolved with IV fluid hydration, therefore will resume oral anti-hypertensive medication History of chronic kidney disease stage IV: Creatinine improving and continue to monitor BUN and creatinine. Avoid all nephrotoxic drugs History diabetes type 2 with peripheral vascular disease: Hold all oral hypoglycemic agents, continue insulin sliding scale with fingerstick blood glucose monitoring. Check A1c Normochromic normocytic anemia: Stable, with no sign of GI bleed. Monitor H&H and transfuse accordingly History of COPD: Current exacerbation, resume outpatient medications, DuoNeb when necessary History of laryngeal cancer: Currently on remission. Consider oncology consultation Dysphagia: Will consult GI for evaluation for PEG tube placement . Continue with Thin liquid diet Claudication to the right leg: Consult Dr. smith for revascularization procedure DVT prophylaxis: Bilateral SCDs Dakota Torres MD Dec 08, 2016 11:20
--- NOTE | 2016-12-08 14:48 | PD.CONS ---
HPI History of Present Illness This is a 66 year old [gentleman] with h/o laryngeal cancer post radiation treatment has difficulty swallowing and has lost 91 lbs in the last year. He has the most trouble with thin liquids. He has problems with gagging when he eats and drinks. He had a PEG tube that fell out 3 to 4 months ago and wants the tube again b/c he has lost weight despite PO intake. He did have an EGD with dilation 2months ago but still is losing weight. He was diagnosed with laryngeal cancer 09/2015 and had radiation treatment. He has a hx GERD. Admits occasional constipation. Denies n/v, diarrhea, blood in stool. PFSH Past Medical History Laryngeal cancer diagnosed September 2015 and status post radiation therapy History of aspiration pneumonia Polycystic kidney disease CAD, history of CABG Diabetes Hypertension hyperlipidemia History of nephrolithiasis Chronic kidney disease stage IV PVD GERD Past Surgical History Cardiac stent CABG 2012 Cholecystectomy 2010 Bilateral femoral bypass 2008 Kidney stents 2008 Shoulder surgery with hardware at age 14 Coded Allergies: HMG-CoA Reductase Inhibitors (Verified Allergy, Severe, 12/07/16) Niacin (Verified Allergy, Severe, 12/07/16) CAUSES HIM TO FEEL HOT Medications Current Medications Medications (Trade) Dose Ordered Sig/Alea Route PRN Reason Start Time Stop Time Status Last Admin Dose Admin Sodium Chloride (NS Flush) 2 ml UNSCH PRN IV FLUSH FLUSH AFTER USING IV ACCESS 12/07/16 09:30 Sodium Chloride (NS Flush) 2 ml BID IV FLUSH 12/07/16 21:00 Acetaminophen (Tylenol) 650 mg Q4H PRN PO TEMP > 100.4 12/07/16 09:30 Ondansetron HCl (Zofran Inj) 4 mg Q6H PRN IVP NAUSEA OR VOMITING 12/07/16 09:30 Acetaminophen (Tylenol) 650 mg Q6H PRN PO PAIN SCALE 1 TO 2 12/07/16 09:30 Naloxone HCl 0.4 mg 0.4 mg UNSCH PRN IV SEE LABEL COMMENTS 12/07/16 09:30 Cefepime HCl/ Sodium Chloride (Maxipime Inj/NS Inj) 100 ml @ 200 mls/hr Q12H IV 12/07/16 20:00 12/08/16 08:32 Lactobacillus Acidophilus (Lactinex) 1 tab Q12HR PO 12/07/16 21:00 12/08/16 08:34 Dextrose (D50w (Vial) Inj) 25 ml UNSCH PRN IV PUSH HYPOGLYCEMIA-SEE COMMENTS 12/07/16 10:15 Glucagon (Glucagon Inj) 1 mg UNSCH PRN OTHER HYPOGLYCEMIA-SEE COMMENTS 12/07/16 10:15 Atorvastatin Calcium (Lipitor) 40 mg DAILY PO 12/08/16 09:00 12/08/16 08:35 Calcitriol (Rocaltrol) 0.25 mcg DAILY PO 12/08/16 09:00 Citalopram Hydrobromide (CeleXA) 10 mg DAILY PO 12/08/16 09:00 12/08/16 08:34 Loratadine (Claritin) 10 mg DAILY PO 12/08/16 09:00 12/08/16 08:34 Metoprolol Tartrate (Lopressor) 25 mg BID PO 12/07/16 21:00 12/08/16 08:34 Tiotropium [place] (Spiriva Inh) 18 mcg DAILY INH 12/08/16 09:00 12/08/16 08:45 Pantoprazole Sodium 40 mg 40 mg DAILY PO 12/08/16 09:00 12/08/16 08:34 Sodium Chloride (NS 1000 ml Inj) 1,000 ml @ 100 mls/hr Q10H IV 12/07/16 11:00 12/08/16 08:33 Miscellaneous (Pill Splitter) 1 ea UNSCH PRN OTHER SEE LABEL COMMENTS 12/07/16 10:45 Patient Own Medication PT OWN MED: CYANOCOBALAMIN (DELGADO... DAILY PO 12/08/16 09:00 Hold Acetaminophen/ Hydrocodone Bitart ([place] 10-325 Mg) 1 tab Q6H PRN PO PAIN SCALE 5 TO 10 12/07/16 16:00 12/07/16 22:04 Family History Polycystic kidney disease in siblings, father CVD Social History No ETOH no tobacco products, quit 2006 no illegal drugs Review of Systems Constitutional: COMPLAINS OF: Weight loss, DENIES: Fever Eyes: DENIES: Blurred vision Ears, nose, mouth, throat: DENIES: Hearing loss Respiratory: COMPLAINS OF: Cough Cardiovascular: DENIES: Chest pain Gastrointestinal: COMPLAINS OF: Constipation, Difficulty Swallowing, DENIES: Abdominal pain, Black stools, Bloody stools, Diarrhea, Nausea, Vomiting, Anorexia, Odynophagia Musculoskeletal: DENIES: Joint pain Integumentary: DENIES: Pruritus Hematologic/lymphatic: DENIES: Bruising Psychiatric: DENIES: Confusion GI Exam Vitals I&O Vital Signs Date Time Temp Pulse Resp B/P Pulse Ox O2 Delivery O2 Flow Rate FiO2 12/08/16 12:00 98.3 60 18 161/74 96 12/08/16 10:50 55 12/08/16 08:00 98.0 57 18 150/70 98 12/08/16 04:00 97.6 51 20 131/62 98 12/08/16 00:00 97.5 54 20 148/72 96 12/07/16 20:06 55 12/07/16 20:00 97.5 56 20 148/71 98 12/07/16 16:04 98.3 59 18 132/68 99 I/O 12/07/16 12/07/16 12/07/16 12/08/16 12/08/16 12/08/16 07:00 15:00 23:00 07:00 15:00 23:00 Intake Total 280 ml 1880 ml 905 ml 360 ml Output Total 300 ml Balance -20 ml 1880 ml 905 ml 360 ml Intake Oral 280 ml 120 ml 360 ml IV Total 1880 ml 785 ml Output Urine Total 300 ml # Voids 5 # Bowel Movements 0 1 Imaging Last Impressions Chest X-Ray 12/07/16 0553 Signed Impressions: Service Date/Time: Wednesday, December 07, 2016 05:55 - CONCLUSION: Suspected minimal left base atelectasis or consolidation. Tomi Bush MD Chest CT 12/07/16 0000 Signed Impressions: Service Date/Time: Wednesday, December 07, 2016 06:51 - CONCLUSION: 1. No evidence of pneumonia. Left basilar atelectasis versus scar. Mild centrilobular emphysematous change. 2. Polycystic kidney disease. Misti Leung MD Laboratory Test 12/08/16 05:53 White Blood Count 8.4 TH/MM3 Red Blood Count 4.07 MIL/MM3 Hemoglobin 10.3 GM/DL Hematocrit 31.7 % Mean Corpuscular Volume 77.8 FL Mean Corpuscular Hemoglobin 25.3 PG Mean Corpuscular Hemoglobin 32.5 % Concent Red Cell Distribution Width 16.3 % Platelet Count 157 TH/MM3 Mean Platelet Volume 9.4 FL Neutrophils (%) (Auto) 81.2 % Lymphocytes (%) (Auto) 9.9 % Monocytes (%) (Auto) 7.4 % Eosinophils (%) (Auto) 1.3 % Basophils (%) (Auto) 0.2 % Neutrophils # (Auto) 6.8 TH/MM3 Lymphocytes # (Auto) 0.8 TH/MM3 Monocytes # (Auto) 0.6 TH/MM3 Eosinophils # (Auto) 0.1 TH/MM3 Basophils # (Auto) 0.0 TH/MM3 CBC Comment DIFF FINAL Differential Comment Sodium Level 144 MEQ/L Potassium Level 4.1 MEQ/L Chloride Level 114 MEQ/L Carbon Dioxide Level 23.2 MEQ/L Anion Gap 7 MEQ/L Blood Urea Nitrogen 26 MG/DL Creatinine 1.70 MG/DL Estimat Glomerular Filtration 40 ML/MIN Rate Random Glucose 85 MG/DL Calcium Level 7.9 MG/DL Total Bilirubin 0.6 MG/DL Aspartate Amino Transf 15 U/L (AST/SGOT) Alanine Aminotransferase 14 U/L (ALT/SGPT) Alkaline Phosphatase 114 U/L Total Protein 5.6 GM/DL Albumin 2.5 GM/DL Date/Time Procedure Status Source Growth 12/07/16 07:25 Urine Culture - Preliminary Resulted Urine Clean Catch NO GROWTH IN 24 HOURS. 12/07/16 07:25 Legionella Antigen - Final Complete Urine Clean Catch PRESUMPTIVE NEGATIVE FOR LEGIONELLA P... 12/07/16 07:25 Streptococcus pneumoniae Antigen (M - Final Complete Urine Clean Catch PRESUMPTIVE NEGATIVE FOR STREPTOCOCCU... 12/07/16 06:35 Influenza Types A,B Antigen (BECCA) - Final Complete Nasal Washing NEGATIVE FOR FLU A AND B ANTIGEN.... 12/07/16 06:10 Aerobic Blood Culture - Preliminary Resulted Blood Peripheral NO GROWTH IN 1 DAY 12/07/16 06:10 Anaerobic Blood Culture - Preliminary Resulted Blood Peripheral NO GROWTH IN 1 DAY Physical Examination HEENT: EOMI; normocephalic; atraumatic; no jaundice. NECK: Neck is supple CHEST: Chest is clear to auscultation CARDIAC: Regular rate and rhythm with no murmur gallop or rubs. ABDOMEN: Soft, nondistended, nontender; no hepatosplenomegaly; bowel sounds are present in all four quadrants. EXTREMITIES: No clubbing, cyanosis, or edema. SKIN: Normal; no rash; no jaundice. 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 Assessment and Plan Plan ASSESSMENT: Dysphagia - hx laryngeal cancer and radiation treatment to neck. Pt desirous of PEG tube. PLAN: - EGD with PEG insertion tomorrow - obtain consent - NPO after midnight - hold coags This pt was seen by myself and Dr. Chan and this note is written on his behalf. Sarah Claros ACTUARIAL CONSULTANT Dec 08, 2016 14:48
[2016-12-08] MEDS: ACETAMINOPHEN/HYDROcodone 325 MG/10 MG TAB PO PRN ×2 (15:21→20:55)
[2016-12-09] VITALS (10 sets, daily range): BP systolic 159–181; BP diastolic 76–83; PULSE 58–77; RESP 14–18; TEMP 97.8–98.5; O2SAT 95–99
[2016-12-09] MEDS: SODIUM CHLOR 0.9% 1000 ML INJ 1,000 ML IV SCH (03:00)
[2016-12-09] MEDS: INSULIN ASPART SUPPLEMENTAL SCALE SQ SCH ×4 (04:50→21:00)
[2016-12-09 07:29] LABS: AUTOMATED NEUTROPHIL # 7.9 TH/MM3 (1.8-7.7); BASOPHIL # 0.1 TH/MM3 (0-0.2); BASOPHIL % 0.9 % (0.0-2.0); EOSINOPHIL # 0.2 TH/MM3 (0-0.4); EOSINOPHIL % 1.7 % (0.0-4.0); HEMATOCRIT 35.7 % (39.0-51.0); LYMPH % 9.1 % (9.0-44.0); LYMPHOCYTE # 0.9 TH/MM3 (1.0-4.8); MEAN CELL VOLUME 78.4 FL (80.0-100.0); MEAN CORPUSCULAR HEMOGLOBIN 24.8 PG (27.0-34.0); MEAN CORPUSCULAR HGB CONC 31.6 % (32.0-36.0); MONO % 7.9 % (0.0-8.0); NEUT % 80.4 % (16.0-70.0); PLATELET COUNT 177 TH/MM3 (150-450); RED BLOOD COUNT 4.55 MIL/MM3 (4.50-5.90); RED CELL DISTRIBUTION WIDTH 16.4 % (11.6-17.2); WHITE BLOOD COUNT 9.9 TH/MM3 (4.0-11.0)
--- NOTE | 2016-12-09 07:37 | PD.CONS ---
HPI Service CV Consult Requested By Reason for Consult RLE claudication Primary Care Physician Juliane Briggs MD History of Present Illness Here with PAD s/p LLE revascularization in 2014 with planned staged intervention on the RLE, CAD s/p CABG 2012 and cardiomyopathy. He is admitted now for severe sepsis. He had RLE pain with both rest and exertion. He denies chest pain, shortness of breath or palpitations (Nixon Perez) Review of Systems Consitutional: DENIES: Fatigue, Fever, Chills, Weight gain, Weight loss Eyes: DENIES: Amaurosis Fug[place], Change in vision HEENT: DENIES: Lightheadedness, Change in hearing Respiratory: DENIES: See HPI, Cough, Snoring, Shortness of breath, Wheezing, Sputum production Cardiovascular: COMPLAINS OF: See HPI Gastrointestinal: DENIES: Nausea, Vomiting, Change in bowel habits, Reflux, Bloody stools, Melena Genitourinary: DENIES: Urinary incontinence, Difficulty voiding Integumentary: DENIES: Rash Neurologic: DENIES: Tingling or numbness, Memory problems, Poor Balance, Stroke symptoms Musculoskeletal: DENIES: Joint pain, Muscle pain, Limited range of motion, Back pain Psychiatric: DENIES: Anxiety, Depression, Sleep disturbances Hematologic: DENIES: Bruising tendencies, Bleeding tendencies Endocrine: DENIES: Weight gain, Weight loss, Thyroid disease (Nixon Perez ) Past Family Social History Allergies: Coded Allergies: HMG-CoA Reductase Inhibitors (Verified Allergy, Severe, 12/07/16) Niacin (Verified Allergy, Severe, 12/07/16) CAUSES HIM TO FEEL HOT Past Medical History see HPI 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 carotid artery disease vocal cord cancer CKD stage 4 anxiety hyperlipidemia HTN type 2 diabetes Past Surgical History see HPI cholecystectomy kidney surgery shoulder surgery Reported Medications Reported Meds & Active Scripts Active Protonix Liq (Pantoprazole Sodium) 40 Mg Pkt 40 Mg PO DAILY [place] (Patiromer Sorbitex Calcium) 8.4 Gm Pow 8.4 Gm PO DAILY Lisinopril 5 Mg Tab 5 Mg PO DAILY Sodium Bicarbonate 325 Mg Tab 325 Mg PO Q12HR Metoprolol Tartrate 25 Mg Tab 25 Mg PO BID Lipitor (Atorvastatin Calcium) 40 Mg Tab 40 Mg PO DAILY Reported Spiriva [place] (Tiotropium Inh) 18 Mcg Cap 18 Mcg INH DAILY 1 capsule = 18 mcg B-12 (Cyanocobalamin) 1,000 Mcg Lozg 1,000 Mcg BUCCAL DAILY B-12 (Cyanocobalamin) 1,000 Mcg Lozg 1,000 Mcg BUCCAL DAILY Claritin (Loratadine) 10 Mg Tab 10 Mg PO DAILY Citalopram (Citalopram Hydrobromide) 10 Mg Tab 10 Mg PO DAILY Calcitriol 0.25 Mcg Cap 0.25 Mcg PO DAILY [place] (Hydrocodone-Acetaminophen) 10-325 Mg Tab 1 Tab PO Q6H PRN Gabapentin 300 Mg Cap 300 Mg PO BID Flonase Nasal [place] (Fluticasone Nasal [place]) 50 Mcg/Act [place] 50 Mcg EACH NARE DAILY Ventolin Hfa 18 GM Inh (Albuterol Sulfate) 90 Mcg/Act Aer 2 Puff INH Q4H PRN Active Ordered Medications Current Medications Medications (Trade) Dose Ordered Sig/Alea Route Start Time Stop Time Status Last Admin (NS Flush) 2 ml UNSCH PRN IV FLUSH 12/07/16 09:30 (NS Flush) 2 ml BID IV FLUSH 12/07/16 21:00 (Tylenol) 650 mg Q4H PRN PO 12/07/16 09:30 (Zofran Inj) 4 mg Q6H PRN IVP 12/07/16 09:30 (Tylenol) 650 mg Q6H PRN PO 12/07/16 09:30 Naloxone HCl 0.4 mg 0.4 mg UNSCH PRN IV 12/07/16 09:30 (Maxipime Inj/NS Inj) 100 ml @ 200 mls/hr Q12H IV 12/07/16 20:00 12/08/16 20:56 (Lactinex) 1 tab Q12HR PO 12/07/16 21:00 12/08/16 20:55 (D50w (Vial) Inj) 25 ml UNSCH PRN IV PUSH 12/07/16 10:15 (Glucagon Inj) 1 mg UNSCH PRN OTHER 12/07/16 10:15 (Lipitor) 40 mg DAILY PO 12/08/16 09:00 12/08/16 08:35 (Rocaltrol) 0.25 mcg DAILY PO 12/08/16 09:00 (CeleXA) 10 mg DAILY PO 12/08/16 09:00 12/08/16 08:34 (Claritin) 10 mg DAILY PO 12/08/16 09:00 12/08/16 08:34 (Lopressor) 25 mg BID PO 12/07/16 21:00 12/08/16 20:55 (Spiriva Inh) 18 mcg DAILY INH 12/08/16 09:00 12/08/16 08:45 Pantoprazole Sodium 40 mg 40 mg DAILY PO 12/08/16 09:00 12/08/16 08:34 (NS 1000 ml Inj) 1,000 ml @ 100 mls/hr Q10H IV 12/07/16 11:00 12/08/16 17:00 (Pill Splitter) 1 ea UNSCH PRN OTHER 12/07/16 10:45 Patient Own Medication PT OWN MED: CYANOCOBALAMIN (DELGADO... DAILY PO 12/08/16 09:00 Hold ([place] 10-325 Mg) 1 tab Q6H PRN PO 12/07/16 16:00 12/08/16 20:55 Family History noncontributory Social History 70 PYH quit 2013, denies alcohol or substance abuse (Nixon Perez) Physical Exam Vital Signs Vital Signs Date Time Temp Pulse Resp B/P Pulse Ox O2 Delivery O2 Flow Rate FiO2 12/09/16 04:00 98.5 60 16 160/76 97 12/09/16 00:00 98.1 58 14 159/77 95 12/08/16 20:07 58 12/08/16 20:00 98.6 75 18 148/64 93 12/08/16 16:00 97.4 60 18 152/72 98 12/08/16 12:00 98.3 60 18 161/74 96 12/08/16 10:50 55 12/08/16 08:00 98.0 57 18 150/70 98 Physical Exam GENERAL: Well-nourished, well-developed patient in no apparent distress. NECK: No JVD. No carotid bruit. CARDIOVASCULAR: Regular rate and rhythm. S1/S2 no murmur, rub, or gallop. RESPIRATORY: No accessory muscle use. Clear to auscultation. Breath sounds equal bilaterally. GASTROINTESTINAL: Abdomen soft, non-tender, nondistended. MUSCULOSKELETAL: Extremities without clubbing, cyanosis, or edema. Laboratory Date/Time Procedure Status Source Growth 12/07/16 07:25 Urine Culture - Preliminary Resulted Urine Clean Catch NO GROWTH IN 24 HOURS. 12/07/16 07:25 Legionella Antigen - Final Complete Urine Clean Catch PRESUMPTIVE NEGATIVE FOR LEGIONELLA P... 12/07/16 07:25 Streptococcus pneumoniae Antigen (M - Final Complete Urine Clean Catch PRESUMPTIVE NEGATIVE FOR STREPTOCOCCU... 12/07/16 06:35 Influenza Types A,B Antigen (BECCA) - Final Complete Nasal Washing NEGATIVE FOR FLU A AND B ANTIGEN.... 12/07/16 06:10 Aerobic Blood Culture - Preliminary Resulted Blood Peripheral NO GROWTH IN 1 DAY 12/07/16 06:10 Anaerobic Blood Culture - Preliminary Resulted Blood Peripheral NO GROWTH IN 1 DAY (Nixon Perez) Result Diagram: 12/08/16 0553 12/08/1653 Assessment and Plan Problem List: (1) PVD (peripheral vascular disease) Assessment and Plan Severe in-stent stenosis right external iliac artery, occluded right SFA, and right fem-pop bypass graft is occluded. He declines any further intervention. He understand and accepts the risk of nonhealing wounds and potential limb loss. Sign off (Nixon Perez) Assessment and Plan I last saw him in the office in Jul 2016. He underwent complex revascularization of LLE fem-pop thrombosed bypass graft. His left leg has done well. He has severe multilevel disease in the RLE which we decided just to medically manage. With his Cr elevation, any contrast may cause further decompensation. In addition, in his current condition and setting of sepsis, this would not be an ideal time to intervene. start plavix. start cilostazol. call with further questions. (Tito Narayanan MD) Nixon Perez Dec 09, 2016 07:37 Tito Narayanan MD Dec 09, 2016 15:07
[2016-12-09 07:45] LABS: HEMO FLAGS AUTO DIFF
[2016-12-09 07:52] LABS: BICARBONATE 21.8 MEQ/L (21.0-32.0); POTASSIUM 4.1 MEQ/L (3.5-5.1)
[2016-12-09] MEDS: SODIUM CHLORIDE 0.9% FLUSH 10 ML FLUSH IV FLUSH SCH ×2 (08:12→21:11)
[2016-12-09] MEDS: CEFEPIME INJ 2,000 MG in SODIUM CHLORIDE 0.9% INJ 100 ML IV SCH ×2 (08:12→21:21)
[2016-12-09] MEDS: TIOTROPIUM BROMIDE 18 MCG INH INH SCH (08:18)
[2016-12-09 08:51] LABS: OVALOCYTES 1+ (NORMAL); PLATELET ESTIMATE SMEAR NORMAL (NORMAL); PLATELET MORPHOLOGY NORMAL (NORMAL); SCAN/DIFF AUTO DIFF CONFIRMED
[2016-12-09] MEDS: LACTOBACILLUS ACIDOPHILUS TAB PO SCH ×2 (09:00→21:11)
[2016-12-09] MEDS: LORATADINE 10 MG TAB PO SCH (09:00)
[2016-12-09] MEDS ORDERED: MIDAZOLAM HCL 2 MG/2 ML VIAL ONE (09:23)
[2016-12-09] MEDS ORDERED: PROPOFOL 200 MG/20 ML AMP IV ONE (09:34)
--- NOTE | 2016-12-09 09:50 | GIPROC ---
[facility] [address] [facility]. [facility], [address] EGD WITH PEG PROCEDURE REPORT EXAM DATE: 12/09/2016 PATIENT NAME: Johnny Iverson MR#: [id number] BIRTHDATE: 1950 ATTENDING: Iain Chan MD ORDER #: [id number] ELECTRONIC REPAIR TROUBLESHOOTER: Wilfrid Vargas and Graeme Car STATUS: inpatient INDICATIONS: The patient is a 66 yr old male here for an EGD with PEG due to dysphagia PROCEDURE PERFORMED: EGD with biopsy EGD with PEG placement MEDICATIONS: Per Anesthesia and None. TOPICAL ANESTHETIC: none CONSENT: The patient understands the risks and benefits of the procedure and understands that these risks include, but are not limited to: sedation, allergic reaction, infection, perforation and/or bleeding. Alternative means of evaluation and treatment include, among others: physical exam, x-rays, and/or surgical intervention. The patient elects to proceed with this endoscopic procedure. medical equipment was checked for proper function. Hand hygiene and appropriate measures for infection prevention was taken. After the risks, benefits and alternatives of the procedure were thoroughly explained, Informed consent was verified, confirmed and timeout was successfully executed by the treatment team. The patient was anesthetized with topical anesthesia and the Pentax [id number] endoscope was introduced through the mouth and advanced to the second portion of the duodenum. The instrument was slowly withdrawn as the mucosa was fully examined. Mild gastritis was found in the antrum BX FROM ANTRUM. The stomach was then inflated with air, and by a combination of transillumination and manual palpation, the site for the gastrostomy tube placement was selected and marked on the anterior abdominal wall. The skin of the anterior abdomen was surgically prepped and draped with sterile towels. Utilizing strict sterile technique, the selected site was then anesthetized with 1% xylocaine by injection into the skin and subcutaneous tissue. A 1 cm incision was made through the skin and subcutaneous tissue, and the needle/cannula assembly was then passed through the abdominal wall and through the anterior wall of the stomach, maintaining visualization with the endoscope. A snare device previously placed through the instrument channel was then opened and placed around the cannula, the needle was removed, and the insertion wire was passed through the cannula and into the stomach lumen. The snare was then loosened from the cannula, and repositioned to snare the insertion wire. The snare was then pulled up to the endoscope distal tip, and the scope was then withdrawn bringing with it the snare and insertion wire. The insertion wire was then released from the snare, and then loop-attached to the BS 20 fr gastrostomy tube. Using the "pull technique", the G-tube was then pulled into place by traction on the insertion wire at the abdominal wall end. The G-tube insertion site was then cleansed once again, and the external bolster was placed over the tube to secure it to the abdominal wall. A sterile dressing was then applied, and the procedure terminated. no abnormalities The gastroscope was then slowly withdrawn and removed. ADVERSE EVENT: There were no complications. IMPRESSIONS: 1. Mild gastritis was found in the antrum 2. No abnormalities RECOMMENDATIONS: 1. Await biopsy results. Biopsy results will not be ready for 7-10 days. If you don't hear from us in two weeks, call our office for biopsy results. 2. Avoid NSAIDS 3. Anti-reflux regimen REPEAT EXAM: procedure as needed Iain Chan MD eSigned: Iain Chan MD 12/09/2016 9:49 AM cc: PATIENT NAME: Johnny Iverson MR#: [id number]
[2016-12-09] MEDS ORDERED: DO NOT ADM ANY ANTICOAGULANT DRUGS PRN (09:52)
[2016-12-09] MEDS ORDERED: KETAMINE HCL 500 MG/5 ML VIAL ONE (10:02)
[2016-12-09] MEDS: CALCITRIOL 0.25 MCG CAP PO SCH (10:36)
[2016-12-09] MEDS: ATORVASTATIN 40 MG TAB PO SCH (10:36)
[2016-12-09] MEDS: PANTOPRAZOLE SOD 40 MG DELAYED RELEASE TAB PO SCH (10:36)
[2016-12-09] MEDS: CITALOPRAM HYDROBROMIDE 20 MG TAB PO SCH (10:37)
[2016-12-09] MEDS: METOPROLOL TARTRATE 25 MG TAB PO SCH ×2 (10:37→21:11)
[2016-12-09] MEDS: ACETAMINOPHEN/HYDROcodone 325 MG/10 MG TAB PO PRN ×2 (10:37→16:32)
--- NOTE | 2016-12-09 12:05 | HHI.PR ---
Subjective Remarks Follow-up severe sepsis/dysphagia/ 12/08/16-patient seen and examined ; no syncopal episodes since admission, currently afebrile. Denies any chest pain or shortness of breath. Patient was seen by his PCP on 12/07/16 in hospital and few recommendations made 12/09/16-patient seen and examined, PEG tube inserted today. BP elevated. Patient complains of severe back pain Objective Vitals Vital Signs Date Time Temp Pulse Resp B/P Pulse Ox O2 Delivery O2 Flow Rate FiO2 12/09/16 10:13 88 12 163/95 98 Nasal Cannula 2 12/09/16 10:00 92 12 177/87 97 Nasal Cannula 2 12/09/16 09:57 97.7 103 12 182/101 97 Nasal Cannula 2 12/09/16 08:33 97.8 59 18 178/81 97 12/09/16 08:29 97.8 59 18 178/81 97 12/09/16 07:53 60 12/09/16 04:00 98.5 60 16 160/76 97 12/09/16 00:00 98.1 58 14 159/77 95 12/08/16 20:07 58 12/08/16 20:00 98.6 75 18 148/64 93 12/08/16 16:00 97.4 60 18 152/72 98 I/O 12/08/16 12/08/16 12/08/16 12/09/16 12/09/16 12/09/16 07:00 15:00 23:00 07:00 15:00 23:00 Intake Total 905 ml 360 ml 2170 ml 754 ml 500 ml Balance 905 ml 360 ml 2170 ml 754 ml 500 ml Intake Oral 120 ml 360 ml 240 ml 0 ml IV Total 785 ml 1930 ml 754 ml Other 500 ml # Voids 5 2 2 # Bowel Movements 1 0 0 Result Diagram: 12/09/16 0610 12/09/16 0610 Imaging Last Impressions Chest X-Ray 12/07/16 0553 Signed Impressions: Service Date/Time: Wednesday, December 07, 2016 05:55 - CONCLUSION: Suspected minimal left base atelectasis or consolidation. Tomi Bush MD Chest CT 12/07/16 0000 Signed Impressions: Service Date/Time: Wednesday, December 07, 2016 06:51 - CONCLUSION: 1. No evidence of pneumonia. Left basilar atelectasis versus scar. Mild centrilobular emphysematous change. 2. Polycystic kidney disease. Misti Leung MD Objective Remarks GENERAL: NAD SKIN: Warm and dry. HEAD: Normocephalic. EYES: No scleral icterus. No injection or drainage. NECK: Supple, trachea midline. No JVD or lymphadenopathy. CARDIOVASCULAR: Regular rate and rhythm without murmurs, gallops, or rubs. RESPIRATORY: Breath sounds equal bilaterally. No accessory muscle use. GASTROINTESTINAL: Abdomen soft, non-tender, nondistended. MUSCULOSKELETAL: No cyanosis, or edema. BACK: Nontender without obvious deformity. No CVA tenderness. Procedures Status post PEG tube placement 12/09/16 A/P Problem List: (1) Severe sepsis ICD Code: A41.9 Status: Acute (2) Hypotension ICD Code: I95.9 Status: Acute (3) Normochromic normocytic anemia ICD Code: D64.9 Status: Acute (4) CKD (chronic kidney disease), stage IV ICD Code: N18.4 Status: Acute (5) Diabetes mellitus with peripheral vascular disease ICD Code: E11.51 Status: Chronic (6) Acute respiratory failure ICD Code: J96.00 Status: Acute (7) COPD (chronic obstructive pulmonary disease) ICD Code: J44.9 Status: Acute (8) Dysphagia ICD Code: R13.10 Status: Acute (9) Claudication of right lower extremity ICD Code: I73.9 Status: Acute Assessment and Plan 66-year-old man with Severe sepsis: Resolved/ source likely respiratory. Status post cefepime and vancomycin in ED pending culture reports. UA, Influenza a and B antigens as well as urinary antigen for Legionella and pneumococcal or negative History of recurrent aspiration pneumonia: Chest x-ray initially ordered and noted and review by me with finding of Suspected minimal left base atelectasis or consolidation; however CT chest with No evidence of pneumonia. Left basilar atelectasis versus scar. continue treatment with cefepime IV as leukocytosis resolved. Acute respiratory failure: Resolved. Both chest x-ray and CT chest noted and review, patient currently on 3 L nasal cannula. DuoNeb when necessary and continue treatment for COPD Hypotension: Likely from above severe sepsis, resolved with IV fluid hydration, Labile benign hypertension: Continue outpatient medications and adjust accordingly History of chronic kidney disease stage IV: Creatinine improving and continue to monitor BUN and creatinine. Avoid all nephrotoxic drugs History diabetes type 2 with peripheral vascular disease: Hold all oral hypoglycemic agents, continue insulin sliding scale with fingerstick blood glucose monitoring. Check A1c Normochromic normocytic anemia: Stable, with no sign of GI bleed. Monitor H&H and transfuse accordingly History of COPD: Current exacerbation, resume outpatient medications, DuoNeb when necessary History of laryngeal cancer: Currently on remission. Outpatient follow-up with oncology Dysphagia: Appreciate input from GI and patient is status post PEG tube placement 12/09/16 . 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 DVT prophylaxis: Bilateral SCDs Discharge Planning Likely discharge 12/10/16 with home health care Dakota Torres MD Dec 09, 2016 12:05
--- NOTE | 2016-12-09 15:46 | HHI.GIFU ---
Subjective Remarks feels ok no new complains Objective Vitals I&O Vital Signs Date Time Temp Pulse Resp B/P Pulse Ox O2 Delivery O2 Flow Rate FiO2 12/09/16 15:03 58 12/09/16 12:31 98.3 77 18 173/83 99 12/09/16 10:13 88 12 163/95 98 Nasal Cannula 2 12/09/16 10:00 92 12 177/87 97 Nasal Cannula 2 12/09/16 09:57 97.7 103 12 182/101 97 Nasal Cannula 2 12/09/16 08:33 97.8 59 18 178/81 97 12/09/16 08:29 97.8 59 18 178/81 97 12/09/16 07:53 60 12/09/16 04:00 98.5 60 16 160/76 97 12/09/16 00:00 98.1 58 14 159/77 95 12/08/16 20:07 58 12/08/16 20:00 98.6 75 18 148/64 93 12/08/16 16:00 97.4 60 18 152/72 98 I/O 12/08/16 12/08/16 12/08/16 12/09/16 12/09/16 12/09/16 07:00 15:00 23:00 07:00 15:00 23:00 Intake Total 905 ml 360 ml 2170 ml 754 ml 500 ml Output Total 800 ml Balance 905 ml 360 ml 2170 ml 754 ml -300 ml Intake Oral 120 ml 360 ml 240 ml 0 ml 0 ml IV Total 785 ml 1930 ml 754 ml TPN/PPN 0 ml Other 500 ml Output Urine Total 800 ml # Voids 5 2 2 # Bowel Movements 1 0 0 0 Laboratory Laboratory Tests Test 12/09/16 06:10 White Blood Count 9.9 Red Blood Count 4.55 Hemoglobin 11.3 Hematocrit 35.7 Mean Corpuscular Volume 78.4 Mean Corpuscular Hemoglobin 24.8 Mean Corpuscular Hemoglobin 31.6 Concent Red Cell Distribution Width 16.4 Platelet Count 177 Mean Platelet Volume 9.4 Neutrophils (%) (Auto) 80.4 Lymphocytes (%) (Auto) 9.1 Monocytes (%) (Auto) 7.9 Eosinophils (%) (Auto) 1.7 Basophils (%) (Auto) 0.9 Neutrophils # (Auto) 7.9 Lymphocytes # (Auto) 0.9 Monocytes # (Auto) 0.8 Eosinophils # (Auto) 0.2 Basophils # (Auto) 0.1 CBC Comment AUTO DIFF Differential Comment AUTO DIFF CONFIRMED Platelet Estimate NORMAL Platelet Morphology Comment NORMAL Ovalocytes 1+ Sodium Level 144 Potassium Level 4.1 Chloride Level 111 Carbon Dioxide Level 21.8 Anion Gap 11 Blood Urea Nitrogen 20 Creatinine 1.54 Estimat Glomerular Filtration 45 Rate Random Glucose 79 Calcium Level 8.5 Date/Time Procedure Status Source Growth 12/07/16 07:25 Urine Culture - Final Complete Urine Clean Catch NO GROWTH IN 48 HOURS. 12/07/16 07:25 Legionella Antigen - Final Complete Urine Clean Catch PRESUMPTIVE NEGATIVE FOR LEGIONELLA P... 12/07/16 07:25 Streptococcus pneumoniae Antigen (M - Final Complete Urine Clean Catch PRESUMPTIVE NEGATIVE FOR STREPTOCOCCU... 12/07/16 06:35 Influenza Types A,B Antigen (BECCA) - Final Complete Nasal Washing NEGATIVE FOR FLU A AND B ANTIGEN.... 12/07/16 06:10 Aerobic Blood Culture - Preliminary Resulted Blood Peripheral NO GROWTH IN 2 DAYS 12/07/16 06:10 Anaerobic Blood Culture - Preliminary Resulted Blood Peripheral NO GROWTH IN 2 DAYS Physical Exam HEENT: Pupils round and reactive to light; normocephalic; atraumatic; no jaundice. Throat is clear. NECK: Neck is supple, no JVD, no lymphadenopathy. CHEST: Chest is clear to auscultation and percussion. CARDIAC: Regular rate and rhythm with no murmur gallop or rubs. ABDOMEN: Soft, nondistended, nontender; no hepatosplenomegaly; bowel sounds are present in all four quadrants. EXTREMITIES: No clubbing, cyanosis, or edema. SKIN: Normal; no rash; no jaundice. [employer]: No focal deficits; alert and oriented times three. Assessment and Plan Plan ASSESSMENT: Dysphagia - hx laryngeal cancer and radiation treatment to neck. PEG tube was placed. PLAN: ] - NPOfor 6 hours then may use peg - hold coags till am Iain Chan MD Dec 09, 2016 15:46
[2016-12-09] MEDS: CILOSTAZOL 50 MG TAB PO SCH (16:00)
[2016-12-10] VITALS: BP 162/88; PULSE 64; RESP 14; TEMP 98.2; O2SAT 94
[2016-12-10] MEDS: ACETAMINOPHEN/HYDROcodone 325 MG/10 MG TAB PO PRN ×3 (00:44→13:06)
[2016-12-10 04:00] VITALS: BP 159/76; PULSE 67; RESP 16; TEMP 98.9; O2SAT 95
[2016-12-10] MEDS: INSULIN ASPART SUPPLEMENTAL SCALE SQ SCH ×2 (06:00→11:00)
[2016-12-10] MEDS: CILOSTAZOL 50 MG TAB PO SCH (06:03)
[2016-12-10] MEDS: CEFEPIME INJ 2,000 MG in SODIUM CHLORIDE 0.9% INJ 100 ML IV SCH (08:21)
[2016-12-10] MEDS: LORATADINE 10 MG TAB PO SCH (08:21)
[2016-12-10] MEDS: ATORVASTATIN 40 MG TAB PO SCH (08:21)
[2016-12-10] MEDS: SODIUM CHLORIDE 0.9% FLUSH 10 ML FLUSH IV FLUSH SCH (08:21)
[2016-12-10] MEDS: CITALOPRAM HYDROBROMIDE 20 MG TAB PO SCH (08:21)
[2016-12-10] MEDS: CALCITRIOL 0.25 MCG CAP PO SCH (08:21)
[2016-12-10] MEDS: METOPROLOL TARTRATE 25 MG TAB PO SCH (08:21)
[2016-12-10] MEDS: LACTOBACILLUS ACIDOPHILUS TAB PO SCH (08:22)
[2016-12-10] MEDS: TIOTROPIUM BROMIDE 18 MCG INH INH SCH (08:22)
[2016-12-10] MEDS: PANTOPRAZOLE SOD 40 MG DELAYED RELEASE TAB PO SCH (08:22)
[2016-12-10 08:34] VITALS: BP 170/82; PULSE 77; RESP 18; TEMP 97.8; O2SAT 95
[2016-12-10] MEDS ORDERED: CLOPIDOGREL 75 MG TAB PO SCH (09:00)
[2016-12-10 09:02] LABS: BICARBONATE 22.6 MEQ/L (21.0-32.0); POTASSIUM 3.8 MEQ/L (3.5-5.1)
--- NOTE | 2016-12-10 09:15 | HHI.FF ---
Face to Face Verification Diagnosis: (1) Severe sepsis (2) Hypotension (3) Dysphagia (4) Acute respiratory failure (5) CKD (chronic kidney disease), stage IV (6) Normochromic normocytic anemia (7) Claudication of right lower extremity (8) Diabetes mellitus with peripheral vascular disease (9) Aspiration into airway Physical Therapy Order: Evaluate and Treat Home Health Nursing Order: Signs/symptoms of disease process I have seen patient Johnny Iverson on 12/10/16. My clinical findings support the need for the requested home health care services because: Deconditioned w/ increased weakness I certify that my clinical findings support that this patient is homebound because: Poor cardiac reserve Dakota Torres MD Dec 10, 2016 09:15
--- NOTE | 2016-12-10 09:15 | HHI.PR ---
Subjective Remarks Follow-up severe sepsis/dysphagia/ 12/08/16-patient seen and examined ; no syncopal episodes since admission, currently afebrile. Denies any chest pain or shortness of breath. Patient was seen by his PCP on 12/07/16 in hospital and few recommendations made 12/09/16-patient seen and examined, PEG tube inserted today. BP elevated. Patient complains of severe back pain 12/10/16-patient seen and examined, states he had a good night sleep and denies any acute event overnight. Afebrile. Objective Vitals Vital Signs Date Time Temp Pulse Resp B/P Pulse Ox O2 Delivery O2 Flow Rate FiO2 12/10/16 08:34 97.8 77 18 170/82 95 12/10/16 04:00 98.9 67 16 159/76 95 12/10/16 00:00 98.2 64 14 162/88 94 12/09/16 20:00 98.0 71 16 171/79 97 12/09/16 16:06 97.9 68 18 181/81 95 12/09/16 15:03 58 12/09/16 12:31 98.3 77 18 173/83 99 12/09/16 10:13 88 12 163/95 98 Nasal Cannula 2 12/09/16 10:00 92 12 177/87 97 Nasal Cannula 2 12/09/16 09:57 97.7 103 12 182/101 97 Nasal Cannula 2 I/O 12/09/16 12/09/16 12/09/16 12/10/16 12/10/16 12/10/16 07:00 15:00 23:00 07:00 15:00 23:00 Intake Total 754 ml 500 ml 344 ml 120 ml Output Total 800 ml Balance 754 ml -300 ml 344 ml 120 ml Intake Oral 0 ml 0 ml 240 ml 120 ml IV Total 754 ml 104 ml TPN/PPN 0 ml Other 500 ml Output Urine Total 800 ml # Voids 2 1 1 # Bowel Movements 0 0 0 0 Result Diagram: 12/09/16 0610 12/10/16 0704 Imaging Last Impressions Chest X-Ray 12/07/16 0553 Signed Impressions: Service Date/Time: Wednesday, December 07, 2016 05:55 - CONCLUSION: Suspected minimal left base atelectasis or consolidation. Tomi Bush MD Chest CT 12/07/16 0000 Signed Impressions: Service Date/Time: Wednesday, December 07, 2016 06:51 - CONCLUSION: 1. No evidence of pneumonia. Left basilar atelectasis versus scar. Mild centrilobular emphysematous change. 2. Polycystic kidney disease. Misti Leung MD Objective Remarks GENERAL: NAD SKIN: Warm and dry. HEAD: Normocephalic. EYES: No scleral icterus. No injection or drainage. NECK: Supple, trachea midline. No JVD or lymphadenopathy. CARDIOVASCULAR: Regular rate and rhythm without murmurs, gallops, or rubs. RESPIRATORY: Breath sounds equal bilaterally. No accessory muscle use. GASTROINTESTINAL: Abdomen soft, non-tender, nondistended. MUSCULOSKELETAL: No cyanosis, or edema. BACK: Nontender without obvious deformity. No CVA tenderness. Procedures Status post PEG tube placement 12/09/16 A/P Problem List: (1) Severe sepsis ICD Code: A41.9 Status: Resolved (2) Hypotension ICD Code: I95.9 Status: Resolved (3) Normochromic normocytic anemia ICD Code: D64.9 Status: Chronic (4) CKD (chronic kidney disease), stage IV ICD Code: N18.4 Status: Chronic (5) Diabetes mellitus with peripheral vascular disease ICD Code: E11.51 Status: Chronic (6) Acute respiratory failure ICD Code: J96.00 Status: Resolved (7) COPD (chronic obstructive pulmonary disease) ICD Code: J44.9 Status: Chronic (8) Dysphagia ICD Code: R13.10 Status: Chronic (9) Claudication of right lower extremity ICD Code: I73.9 Status: Chronic Assessment and Plan 66-year-old man with Severe sepsis: Resolved/ source likely respiratory. Status post cefepime and vancomycin in ED pending culture reports. UA, Influenza a and B antigens as well as urinary antigen for Legionella and pneumococcal or negative History of recurrent aspiration pneumonia: Chest x-ray initially ordered and noted and review by me with finding of Suspected minimal left base atelectasis or consolidation; however CT chest with No evidence of pneumonia. Left basilar atelectasis versus scar. Will Discontinue cefepime IV Acute respiratory failure: Resolved. Both chest x-ray and CT chest noted and review, patient currently on 3 L nasal cannula. DuoNeb when necessary and continue treatment for COPD Hypotension: Likely from above severe sepsis, resolved with IV fluid hydration, Labile benign hypertension: Continue outpatient medications and adjust accordingly History of chronic kidney disease stage IV: Creatinine improving and continue to monitor BUN and creatinine. Avoid all nephrotoxic drugs History diabetes type 2 with peripheral vascular disease: Hold all oral hypoglycemic agents, continue insulin sliding scale with fingerstick blood glucose monitoring. Check A1c Normochromic normocytic anemia: Stable, with no sign of GI bleed. Monitor H&H and transfuse accordingly History of COPD: Current exacerbation, resume outpatient medications, DuoNeb when necessary History of laryngeal cancer: Currently on remission. Outpatient follow-up with oncology Dysphagia: Appreciate input from GI and patient is status post PEG tube placement 12/09/16 . Continue with Thin liquid diet. 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 DVT prophylaxis: Bilateral SCDs Discharge Planning Likely discharge 12/10/16 with home health care Dakota Torres MD Dec 10, 2016 09:15
--- NOTE | 2016-12-10 09:27 | HHI.DS ---
Discharge Summary Admission Date Dec 07, 2016 at 08:13 Discharge Date: Dec 10, 2016 Admitting Diagnosis sepsis (1) Severe sepsis ICD Code: A41.9 (2) Hypotension ICD Code: I95.9 (3) Normochromic normocytic anemia ICD Code: D64.9 (4) CKD (chronic kidney disease), stage IV ICD Code: N18.4 (5) Diabetes mellitus with peripheral vascular disease ICD Code: E11.51 (6) Acute respiratory failure ICD Code: J96.00 (7) COPD (chronic obstructive pulmonary disease) ICD Code: J44.9 (8) Dysphagia ICD Code: R13.10 (9) Claudication of right lower extremity ICD Code: I73.9 Procedures Status post PEG tube placement 12/09/16 Brief History - From Admission 66-year-old male with a history of laryngeal cancer status post radiation therapy completed 03/18/16 and currently on remission was brought to the emergency department for evaluation of acute onset of dizziness, weakness, hypotension and one febrile episode with temperature of 101.4 along with dry cough. Per patient's 's account, he has been feeling well for the past couple days until last night and patient felt very hot with temperature of 11.4 at 3 AM for which was treated with 2 tablet of 500 mg Tylenol. In a running for 30 a.m. as patient was walking to bathroom he felt pale and became diaphoretic with a BP of 100/50 heart rate of 81 patient became dizzy and has no loss of consciousness. EMS was called and patient was found to have a BP of 70/40 which subsequently improved with IV fluid to 90 systolic. He has oxygen saturation in the lower 80s on arrival in ED. She have prior history of recurrent aspiration pneumonia. Had a G-tube placed in December 2015 which was subsequently removed back in June 2016. During My exam, he denies any chest pain and vitals appear to be stable CBC/BMP: 12/09/16 0610 12/10/16 0704 Significant Findings Laboratory Tests Test 12/08/16 12/09/16 12/10/16 05:53 06:10 07:04 Red Blood Count 4.07 MIL/MM3 (4.50-5.90) Hemoglobin 10.3 GM/DL 11.3 GM/DL (13.0-17.0) (13.0-17.0) Hematocrit 31.7 % 35.7 % (39.0-51.0) (39.0-51.0) Mean Corpuscular Volume 77.8 FL 78.4 FL (80.0-100.0) (80.0-100.0) Mean Corpuscular Hemoglobin 25.3 PG 24.8 PG (27.0-34.0) (27.0-34.0) Neutrophils (%) (Auto) 81.2 % 80.4 % (16.0-70.0) (16.0-70.0) Lymphocytes # (Auto) 0.8 TH/MM3 0.9 TH/MM3 (1.0-4.8) (1.0-4.8) Chloride Level 114 MEQ/L 111 MEQ/L (98-107) (98-107) Blood Urea Nitrogen 26 MG/DL (7-18) 20 MG/DL (7-18) 22 MG/DL (7-18) Creatinine 1.70 MG/DL 1.54 MG/DL 1.53 MG/DL (0.60-1.30) (0.60-1.30) (0.60-1.30) Estimat Glomerular Filtration 40 ML/MIN (>89) 45 ML/MIN (>89) 45 ML/MIN (>89) Rate Calcium Level 7.9 MG/DL (8.5-10.1) Total Protein 5.6 GM/DL (6.4-8.2) Albumin 2.5 GM/DL (3.4-5.0) Mean Corpuscular Hemoglobin 31.6 % Concent (32.0-36.0) Neutrophils # (Auto) 7.9 TH/MM3 (1.8-7.7) Ovalocytes 1+ (NORMAL) Imaging Last Impressions Chest X-Ray 12/07/16 0553 Signed Impressions: Service Date/Time: Wednesday, December 07, 2016 05:55 - CONCLUSION: Suspected minimal left base atelectasis or consolidation. Tomi Bush MD Chest CT 12/07/16 0000 Signed Impressions: Service Date/Time: Wednesday, December 07, 2016 06:51 - CONCLUSION: 1. No evidence of pneumonia. Left basilar atelectasis versus scar. Mild centrilobular emphysematous change. 2. Polycystic kidney disease. Misti Leung MD PE at Discharge GENERAL: NAD SKIN: Warm and dry. HEAD: Normocephalic. EYES: No scleral icterus. No injection or drainage. NECK: Supple, trachea midline. No JVD or lymphadenopathy. CARDIOVASCULAR: Regular rate and rhythm without murmurs, gallops, or rubs. RESPIRATORY: Breath sounds equal bilaterally. No accessory muscle use. GASTROINTESTINAL: Abdomen soft, non-tender, nondistended. MUSCULOSKELETAL: No cyanosis, or edema. BACK: Nontender without obvious deformity. No CVA tenderness. Hospital Course Severe sepsis: Resolved/ source likely respiratory. He was treated with IV antibiotics and all culture were negative to date prior to discharge as well as UA, Influenza a and B antigens as well as urinary antigen for Legionella and pneumococcal which all resulted negative History of recurrent aspiration pneumonia: Chest x-ray with finding of Suspected minimal left base atelectasis or consolidation; however CT chest with No evidence of pneumonia. Left basilar atelectasis versus scar. Patient was treated with IV cefepime and oxygen saturation remained above 92% . All culture were NTD Acute respiratory failure: Resolved. Both chest x-ray and CT chest noted and review, patient currently on 3 L nasal cannula. DuoNeb when necessary and continue treatment for COPD Hypotension: Likely from above severe sepsis, resolved with IV fluid hydration, Labile benign hypertension: Outpatient medications were resumed and vitals were monitored History of chronic kidney disease stage IV: Renal indices improved with IV fluid hydration History diabetes type 2 with peripheral vascular disease: Oral hypoglycemic agents were held and patient was started on sliding scale insulin Normochromic normocytic anemia: Stable, with no sign of GI bleed. Monitor H&H and transfuse accordingly History of COPD: Current exacerbation, outpatient medications were resumed, DuoNeb when necessary History of laryngeal cancer: Currently on remission. Outpatient follow-up with oncology Dysphagia: Appreciate input from GI and patient is status post PEG tube placement 12/09/16 . Continue with Thin liquid diet. 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 DVT prophylaxis: Bilateral SCDs Pt Condition on Discharge: Stable Discharge Disposition: Disch w/ Home Health Serv Discharge Time: > 30 minutes Discharge Instructions DIET: Follow Instructions for: On Tube Feeding Activities you can perform: Regular-No Restrictions Follow up Referrals: PCP Follow-up - 1 Week New Medications: Feeding Supplies (Feeding Bottles/Standard) 1 Mis Mis UNITS #10 Nutritional Supplements (Glucerna 1.0 William) 1 Liq Liq 360 ML PEG TID Bolus feeding 360ml @ 8 AM, 12 PM and 4 PM Nutritional Supplement #100 ML Nutritional Supplements (Glucerna 1.0 William) 1 Liq Liq 240 ML PEG BID Bolus feeding 240 mL @ 8 PM and 11 PM Nutritional Supplement # 100 ML Syringe (Disposable) (Monoject Piston Syringe/C 140 ml) 1 Mis Mis UNIT #10 Continued Medications: Albuterol 18 GM Inh (Ventolin Hfa 18 GM Inh) 90 Mcg/Act Aer 2 PUFF INH Q4H PRN SHORTNESS OF BREATH #1 Ref 0 INHALER Atorvastatin (Lipitor) 40 Mg Tab 40 MG PO DAILY lipids #1 Ref 0 TAB Calcitriol (Calcitriol) 0.25 Mcg Cap 0.25 MCG PO DAILY Calcium Supplement #30 Ref 0 CAP Citalopram (Citalopram) 10 Mg Tab 10 MG PO DAILY Control Depression #30 Ref 0 TAB Cyanocobalamin (B-12) 1,000 Mcg Lozg 1000 MCG BUCCAL DAILY Nutritional Supplement #1 Ref 0 BOTTLE Cyanocobalamin (B-12) 1,000 Mcg Lozg 1000 MCG BUCCAL DAILY Nutritional Supplement #1 Ref 0 BOTTLE Fluticasone Nasal [place] (Flonase Nasal [place]) 50 Mcg/Act [place] 50 MCG EACH NARE DAILY Allergies #1 Ref 0 BOTTLE Gabapentin (Gabapentin) 300 Mg Cap 300 MG PO BID #60 Ref 0 CAP Hydrocodone-Acetaminophen ([place]) 10-325 Mg Tab 1 TAB PO Q6H PRN PAIN Ref 0 TAB Lisinopril (Lisinopril) 5 Mg Tab 5 MG PO DAILY Blood Pressure Management #30 Ref 0 TAB Loratadine (Claritin) 10 Mg Tab 10 MG PO DAILY Allergy Management Ref 0 TAB Metoprolol Tartrate (Metoprolol Tartrate) 25 Mg Tab 25 MG PO BID cad #1 Ref 0 TAB Pantoprazole Liq (Protonix Liq) 40 Mg Pkt 40 MG PO DAILY Reflux #30 Ref 0 PKT Patiromer Sorbitex Calcium (Veltassa) 8.4 Gm Pow 8.4 GM PO DAILY hyperkalemia #1 Ref 0 GM Sodium Bicarbonate (Sodium Bicarbonate) 325 Mg Tab 325 MG PO Q12HR renal dysfunction #1 Ref 0 TAB Tiotropium Inh (Spiriva Handihaler) 18 Mcg Cap 18 MCG INH DAILY 1 capsule = 18 mcg COPD #30 Ref 0 CAP Dakota Torres MD Dec 10, 2016 09:27
[2016-12-10 12:23] VITALS: BP 140/70; PULSE 70; RESP 18; TEMP 97.6; O2SAT 95
--- NOTE | 2016-12-10 14:15 | HHI.GIFU ---
Subjective Remarks Up in chair. No complaints. States he is able to swallow regular foods, just poor intake. Objective Vitals I&O Vital Signs Date Time Temp Pulse Resp B/P Pulse Ox O2 Delivery O2 Flow Rate FiO2 12/10/16 12:23 97.6 70 18 140/70 95 12/10/16 08:34 97.8 77 18 170/82 95 12/10/16 04:00 98.9 67 16 159/76 95 12/10/16 00:00 98.2 64 14 162/88 94 12/09/16 20:00 98.0 71 16 171/79 97 12/09/16 16:06 97.9 68 18 181/81 95 12/09/16 15:03 58 I/O 12/09/16 12/09/16 12/09/16 12/10/16 12/10/16 12/10/16 07:00 15:00 23:00 07:00 15:00 23:00 Intake Total 754 ml 500 ml 344 ml 120 ml Output Total 800 ml Balance 754 ml -300 ml 344 ml 120 ml Intake Oral 0 ml 0 ml 240 ml 120 ml IV Total 754 ml 104 ml TPN/PPN 0 ml Other 500 ml Output Urine Total 800 ml # Voids 2 1 1 # Bowel Movements 0 0 0 0 Laboratory Laboratory Tests Test 12/10/16 07:04 Sodium Level 140 Potassium Level 3.8 Chloride Level 107 Carbon Dioxide Level 22.6 Anion Gap 10 Blood Urea Nitrogen 22 Creatinine 1.53 Estimat Glomerular Filtration 45 Rate Random Glucose 103 Calcium Level 8.7 Date/Time Procedure Status Source Growth 12/07/16 07:25 Urine Culture - Final Complete Urine Clean Catch NO GROWTH IN 48 HOURS. 12/07/16 07:25 Legionella Antigen - Final Complete Urine Clean Catch PRESUMPTIVE NEGATIVE FOR LEGIONELLA P... 12/07/16 07:25 Streptococcus pneumoniae Antigen (M - Final Complete Urine Clean Catch PRESUMPTIVE NEGATIVE FOR STREPTOCOCCU... 12/07/16 06:35 Influenza Types A,B Antigen (BECCA) - Final Complete Nasal Washing NEGATIVE FOR FLU A AND B ANTIGEN.... 12/07/16 06:10 Aerobic Blood Culture - Preliminary Resulted Blood Peripheral NO GROWTH IN 3 DAYS 12/07/16 06:10 Anaerobic Blood Culture - Preliminary Resulted Blood Peripheral NO GROWTH IN 3 DAYS Imaging Last Impressions Chest X-Ray 12/07/16 0561 Signed Impressions: Service Date/Time: Wednesday, December 07, 2016 05:55 - CONCLUSION: Suspected minimal left base atelectasis or consolidation. Tomi Bush MD Chest CT 12/07/16 0000 Signed Impressions: Service Date/Time: Wednesday, December 07, 2016 06:51 - CONCLUSION: 1. No evidence of pneumonia. Left basilar atelectasis versus scar. Mild centrilobular emphysematous change. 2. Polycystic kidney disease. Misti Leung MD Physical Exam HEENT: Normocephalic; atraumatic; no jaundice. Hoarse. CHEST: CTA. CARDIAC: RRR. ABDOMEN: Soft, nondistended, nontender; no hepatosplenomegaly; bowel sounds are present in all four quadrants. PEG tube site without redness or swelling. EXTREMITIES: No clubbing, cyanosis, or edema. SKIN: Normal; no rash; no jaundice. OPERATOR TECHNICIAN: No focal deficits; alert and oriented times three. 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 He is able to take po, but reports poor po intake. S/P PEG tube placement (12/09/16). Site without redness or swelling. Will get ball machine operator consult for TF recommendations for nutritional supplement. PLAN: - Heart healthy diet - Youth Counselor evaluation for nighttime feedings for supplements - GI will sign off, please reconsult as needed Suzi Lora Dec 10, 2016 14:15
[2016-12-10] MEDS ORDERED: [UNRECOGNIZED DRUG - CODE] (15:04)
[2016-12-10] MEDS ORDERED: [UNRECOGNIZED DRUG - CODE] (15:04)
[2016-12-10] MEDS ORDERED: [UNRECOGNIZED DRUG - CODE] PEG ×2 (15:07→15:12)
== END 2016-12-10 15:35 | disposition home or self-care (01) | DRG 871 ==
LOC: NEPE 05:39 → NEDA 08:13 → N04A 10:38
PROVIDERS: ADMIT Hospitalist; ATTEND Hospitalist
PROC: 0DH63UZ Insertion of Feeding Device into Stomach, Percutaneous Approach (ICD-10-PCS; principal; 2016-12-09 08:35)
PROC: 0DB68ZX Excision of Stomach, Via Natural or Artificial Opening Endoscopic, Diagnostic (ICD-10-PCS; 2016-12-09 08:35)
DX: A41.9 Sepsis, unspecified organism (principal); J96.01 Acute respiratory failure with hypoxia; R65.20 Severe sepsis without septic shock; I95.9 Hypotension, unspecified; E11.22 Type 2 diabetes mellitus with diabetic chronic kidney disease; N18.4 Chronic kidney disease, stage 4 (severe); Q61.3 Polycystic kidney, unspecified; J44.1 Chronic obstructive pulmonary disease with (acute) exacerbation; E11.51 Type 2 diabetes mellitus with diabetic peripheral angiopathy without gangrene; R13.10 Dysphagia, unspecified; I12.9 Hypertensive chronic kidney disease with stage 1 through stage 4 chronic kidney disease, or unspecified chronic kidney disease; D64.9 Anemia, unspecified; Z92.3 Personal history of irradiation; Z85.21 Personal history of malignant neoplasm of larynx; Y83.2 Surgical operation with anastomosis, bypass or graft as the cause of abnormal reaction of the patient, or of later complication, without mention of misadventure at the time of the procedure; T82.856D Stenosis of peripheral vascular stent, subsequent encounter; I25.10 Atherosclerotic heart disease of native coronary artery without angina pectoris; Z95.1 Presence of aortocoronary bypass graft; E78.5 Hyperlipidemia, unspecified; K21.9 Gastro-esophageal reflux disease without esophagitis; K29.70 Gastritis, unspecified, without bleeding; M54.9 Dorsalgia, unspecified; Z87.891 Personal history of nicotine dependence
CPT/HCPCS: 36600; 51702; 71010; 71250; 80048; 80053; 81001; 82805; 82948; 83605; 83690; 83735; 84484; 85025; 85610; 85730; 87040; 87086; 87449; 87804; 88305; 88312; 93005; 96374; J0692; J2250; J3370; J7030; J7040

== ENCOUNTER 2016-12-16 20:38 | Emergency (ER) | payer MEDICARE, MEDICAID ==
[~2016-12-16] VITALS: Ht 182.9 cm; Wt 76.8 kg
[~2016-12-16 20:38] MED LIST changes: -CEFT250S PO; +CYAN100015 BUCCAL; -FLON0.053; +FLUT1SPR5 EACH NARE; -GABA300C3 PO; +GABA300C5 PO; -HYDR-3129 PO; +HYDR-3366 PO; +LORA-361 PO; -LORA10TA PO; +SPIRCAP INH; -TIOT18I INH; -VITA100020 PO; +[UNRECOGNIZED DRUG - CODE]; +[UNRECOGNIZED DRUG - CODE]; +[UNRECOGNIZED DRUG - CODE] PEG
[2016-12-16 20:47] VITALS: BP 119/66; PULSE 103; RESP 14; TEMP 100.6; O2SAT 93
[2016-12-16] MEDS ORDERED: METO25TA3 PO ×2 (21:17)
[2016-12-16 21:20] VITALS: BP 132/62; PULSE 91; RESP 18; TEMP 99; O2SAT 92
[2016-12-16] MEDS ORDERED: SODIUM CHLOR 0.9% 1000 ML INJ 1,000 ML IV ONE ×2 (21:26)
[2016-12-16] MEDS ORDERED: SODIUM CHLOR 0.9% 1000 ML INJ 400 ML IV ONE (21:26)
[2016-12-16] MEDS ORDERED: VANCOMYCIN INJ 1,000 MG in SODIUM CHLOR 0.9% 250 ML INJ 250 ML IV ONE (21:30)
[2016-12-16] MEDS ORDERED: PIPERACIL-TAZO 3.375 GM PREMIX 50 ML IV ONE (21:30)
[2016-12-16] MEDS ORDERED: ACETAMINOPHEN 325 MG TAB PO ONE (21:30)
--- NOTE | 2016-12-16 21:38 | PD ---
HPI Chief Complaint: Fever Time Seen by Provider: 21:20 Travel History International Travel<30 days: No Contact w/Intl Traveler<30days: No Traveled to known affect area: No History of Present Illness HPI Patient 66-year-old male presents emergency department for evaluation of fever as well as delirium. He is accompanied by his and daughter who states that a family member found him very confused earlier today. Patient apparently had a fever to 103 Fahrenheit at home. Patient has a history of recently being admitted for aspiration like pneumonia. He's been taking Keflex as prescribed and his last dose was due tonight. Family is very concerned because he still having fever rigors an occasional delirium. Patient does have a history of laryngeal cancer which currently in remission. Denies any cough congestion runny nose or dysuria abdominal pain nausea vomiting diarrhea. PFSH Past Medical History Hx Anticoagulant Therapy: Yes Arthritis: Yes Anxiety: Yes Depression: Yes Cancer: Yes (READMISSION) Cardiac Catheterization: Yes Cardiovascular Problems: Yes High Cholesterol: Yes Chemotherapy: No Congestive Heart Failure: Yes COPD: Yes Cerebrovascular Accident: Yes Coronary Artery Disease: Yes Diabetes: Yes Patient Takes Glucophage: No Diminished Hearing: No Endocrine: Yes Gastrointestinal Disorders: Yes GERD: Yes Genitourinary: Yes (POLYCYSTIC KIDNEY DISEASE) Hypertension: Yes Immune Disorder: No Implanted Vascular Access Dvce: No Kidney Stones: Yes Musculoskeletal: Yes Neurologic: Yes Psychiatric: No Reproductive: No Respiratory: Yes (COPD) Immunizations Current: Yes Myocardial Infarction: Yes Radiation Therapy: No Renal Failure: Yes Tetanus Vaccination: < 5 Years Influenza Vaccination: Yes ?: Not Past Surgical History Abdominal Surgery: Yes (GALLBALADDER REMOVAL) Arteriovenous Shunt: No Cardiac Surgery: Yes (VASCULAR LEGS) Cholecystectomy: Yes Coronary Artery Bypass Graft: Yes Coronary Stent: Yes Ear Surgery: No Endocrine Surgery: No Eye Surgery: No Genitourinary Surgery: No Gynecologic Surgery: No Insulin Pump: No Joint Replacement: Yes (SCREWS IN LEFT SHOULDER) Oral Surgery: Yes (THROAT DIALATION) Thoracic Surgery: Yes (CABG) Tonsillectomy: Yes Other Surgery: Yes Family History Family Myocardial Infarction: Yes Social History Alcohol Use: No Tobacco Use: No (QUIT 2008) Substance Use: No Allergies-Medications (Allergen,Severity, Reaction): Coded Allergies: HMG-CoA Reductase Inhibitors (Verified Allergy, Severe, 12/07/16) Niacin (Verified Allergy, Severe, 12/07/16) CAUSES HIM TO FEEL HOT Oily Fish (Verified Allergy, Intermediate, Diarrhea, 12/16/16) Reported Meds & Prescriptions Reported Meds & Active Scripts Active Feeding Bottles/Standard (Feeding Supplies) 1 Mis Mis Units Protonix Liq (Pantoprazole Sodium) 40 Mg Pkt 40 Mg PO DAILY [place] (Patiromer Sorbitex Calcium) 8.4 Gm Pow 8.4 Gm PO DAILY Sodium Bicarbonate 325 Mg Tab 325 Mg PO Q12HR Lipitor (Atorvastatin Calcium) 40 Mg Tab 40 Mg PO DAILY Reported Metoprolol Tartrate 25 Mg Tab 12.5 Mg PO HS Metoprolol Tartrate 25 Mg Tab 25 Mg PO DAILY Spiriva Handihaler (Tiotropium Inh) 18 Mcg Cap 18 Mcg INH DAILY 1 capsule = 18 mcg Claritin (Loratadine) 10 Mg Tab 10 Mg PO DAILY Citalopram (Citalopram Hydrobromide) 10 Mg Tab 10 Mg PO DAILY Calcitriol 0.25 Mcg Cap 0.25 Mcg PO DAILY [place] (Hydrocodone-Acetaminophen) 10-325 Mg Tab 1 Tab PO Q6H PRN Gabapentin 300 Mg Cap 300 Mg PO BID Flonase Nasal [place] (Fluticasone Nasal [place]) 50 Mcg/Act [place] 50 Mcg EACH NARE DAILY Ventolin Hfa 18 GM Inh (Albuterol Sulfate) 90 Mcg/Act Aer 2 Puff INH Q4H PRN Review of Systems Except as stated in HPI: all other systems reviewed are Neg Physical Exam Narrative GENERAL: Well-developed well-nourished, no apparent distress, hoarse voice. SKIN: Focused skin assessment warm/dry. HEAD: Atraumatic. Normocephalic. EYES: Pupils equal and round. No scleral icterus. No injection or drainage. ENT: No nasal bleeding or discharge. Mucous membranes pink and moist. NECK: Trachea midline. No JVD. CARDIOVASCULAR: Regular rate and rhythm. No murmur appreciated. RESPIRATORY: No accessory muscle use. Clear to auscultation. Breath sounds equal bilaterally. GASTROINTESTINAL: Abdomen soft, non-tender, nondistended. Hepatic and splenic margins not palpable. G-tube site clean dry and intact, no signs of infection. No peritoneal signs. Abdomen soft. MUSCULOSKELETAL: No obvious deformities. No clubbing. No cyanosis. No edema. NEUROLOGICAL: Awake and alert. No obvious cranial nerve deficits. Motor grossly within normal limits. Normal speech. PSYCHIATRIC: Appropriate mood and affect; insight and judgment normal. Data Data Last Documented VS Vital Signs Date Time Temp Pulse Resp B/P Pulse Ox O2 Delivery O2 Flow Rate FiO2 12/16/16 21:20 99.0 91 18 132/62 92 Room Air Orders Electrocardiogram (12/16/16 21:26) Complete Blood Count With Diff (12/16/16 21:26) Comprehensive Metabolic Panel (12/16/16:) Prothrombin Time / Inr (Pt) (12/16/16:) Act Partial Throm Time (Ptt) (12/16/16 21:) Lactic Acid Sepsis Protocol (12/16/16:) Magnesium (Mg) (12/16/16:) Phosphorus (Po4) (12/16/16:) Lipase (12/16/16:) Ckmb (Isoenzyme) Profile (12/16/16:) Troponin I (12/16/16:) Urinalysis - C+S If Indicated (12/16/16:) Blood Culture (12/16/16:) Chest, Single Ap (12/16/16:26) Blood Glucose (12/16/16:) Ecg Monitoring (12/16/16:) Iv Access Insert/Monitor (12/16/16:) Oximetry (12/16/16:) Oxygen Administration (12/16/16:) Acetaminophen (Tylenol) (12/16/16 21:30) Sodium Chlor 0.9% 1000 Ml Inj (Ns 1000 M (12/16/16 21:26) Sodium Chlor 0.9% 1000 Ml Inj (Ns 1000 M (12/16/16 21:26) Sodium Chlor 0.9% 1000 Ml Inj (Ns 1000 M (12/16/16 21:26) Vancomycin Inj (Vancomycin Inj) (12/16/16 21:30) Piperacil-Tazo 3.375 Gm Premix (Zosyn 3. (12/16/16 21:30) Influenzae A/B Antigen (12/16/16 22:36) Labs Laboratory Tests Test 12/16/16 12/16/16 21:50 22:35 White Blood Count 10.1 TH/MM3 Red Blood Count 4.52 MIL/MM3 Hemoglobin 11.5 GM/DL Hematocrit 35.0 % Mean Corpuscular Volume 77.4 FL Mean Corpuscular Hemoglobin 25.4 PG Mean Corpuscular Hemoglobin 32.8 % Concent Red Cell Distribution Width 15.4 % Platelet Count 214 TH/MM3 Mean Platelet Volume 10.1 FL Neutrophils (%) (Auto) 83.1 % Lymphocytes (%) (Auto) 6.0 % Monocytes (%) (Auto) 6.9 % Eosinophils (%) (Auto) 1.0 % Basophils (%) (Auto) 3.0 % Neutrophils # (Auto) 8.4 TH/MM3 Lymphocytes # (Auto) 0.6 TH/MM3 Monocytes # (Auto) 0.7 TH/MM3 Eosinophils # (Auto) 0.1 TH/MM3 Basophils # (Auto) 0.3 TH/MM3 CBC Comment DIFF FINAL Differential Comment Prothrombin Time 17.3 SEC Prothromb Time International 1.5 RATIO Ratio Activated Partial 34.3 SEC Thromboplast Time Sodium Level 140 MEQ/L Potassium Level 4.1 MEQ/L Chloride Level 103 MEQ/L Carbon Dioxide Level 28.0 MEQ/L Anion Gap 9 MEQ/L Blood Urea Nitrogen 31 MG/DL Creatinine 1.60 MG/DL Estimat Glomerular Filtration 43 ML/MIN Rate Random Glucose 124 MG/DL Calcium Level 8.4 MG/DL Phosphorus Level 1.9 MG/DL Magnesium Level 1.8 MG/DL Total Bilirubin 0.4 MG/DL Aspartate Amino Transf 22 U/L (AST/SGOT) Alanine Aminotransferase 25 U/L (ALT/SGPT) Alkaline Phosphatase 162 U/L Total Creatine Kinase 34 U/L Troponin I 0.04 NG/ML Total Protein 6.9 GM/DL Albumin 2.9 GM/DL Lipase 105 U/L Lactic Acid Level 1.3 mmol/L [facility] Medical Decision Making Medical Screen Exam Complete: Yes Emergency Medical Condition: Yes Interpretation(s) EKG shows normal sinus rhythm left axis deviation normal R-wave progression. No concerning ST T changes. Intervals within normal limits. This normal EKG. Differential Diagnosis Fever, sepsis, pneumonia, urinary tract infection, influenza. Narrative Course Patient was roomed in emergency department, sepsis protocol was started, initial white blood count was 11.7, lactic acid is normal. Patient was given fluid bolus as well as vancomycin and Zosyn. Patient still has UA rapid flu test pending currently. Patient was discussed with Dr. Lorenzo at night follow -up is results and disposition properly. Bret Tena MD Dec 16, 2016 21:38
--- NOTE | 2016-12-16 21:43 | RADHPO ---
EXAM DATE/TIME: 12/16/2016 21:32 [facility] COMPARISON: CHEST SINGLE AP, December 07, 2016, 5:55. INDICATIONS : Cough. MEDICAL HISTORY : Hypertension. Chronic obstructive pulmonary disease. Congestive heart SURGICAL HISTORY : CABG. Tonsillectomy. Cholecystectomy. Cardiac catherization with stents ENCOUNTER: Initial ACUITY: 1 day PAIN SCORE: 0/10 LOCATION: Bilateral chest FINDINGS: Trace atelectasis seen at the bases. No dense infiltrate seen. No pleural effusion or pneumothorax Heart size stable, within normal limits. Patient has had previous median sternotomy. CONCLUSION: Minimal bibasilar atelectasis. Tomi Luong MD on December 16, 2016 at 21:40 Board Certified Radiologist. This report was verified electronically.
[2016-12-16 22:16] LABS: AUTOMATED NEUTROPHIL # 8.4 TH/MM3 (1.8-7.7); BASOPHIL # 0.3 TH/MM3 (0-0.2); EOSINOPHIL # 0.1 TH/MM3 (0-0.4); HEMO FLAGS DIFF FINAL; LYMPHOCYTE # 0.6 TH/MM3 (1.0-4.8); MEAN CELL VOLUME 77.4 FL (80.0-100.0); MEAN CORPUSCULAR HEMOGLOBIN 25.4 PG (27.0-34.0); MEAN CORPUSCULAR HGB CONC 32.8 % (32.0-36.0); MONO % 6.9 % (0.0-8.0); NEUT % 83.1 % (16.0-70.0); PLATELET COUNT 214 TH/MM3 (150-450); RED BLOOD COUNT 4.52 MIL/MM3 (4.50-5.90); RED CELL DISTRIBUTION WIDTH 15.4 % (11.6-17.2); WHITE BLOOD COUNT 10.1 TH/MM3 (4.0-11.0)
[2016-12-16 22:33] LABS: CHLORIDE 103 MEQ/L (98-107); POTASSIUM 4.1 MEQ/L (3.5-5.1); SODIUM (NA) 140 MEQ/L (136-145)
[2016-12-16 22:37] LABS: ANION GAP 9 MEQ/L (5-15); APTT (PATIENT) 34.3 SEC (24.3-30.1); BLOOD UREA NITROGEN 31 MG/DL (7-18); INTERNATIONAL NORMALIZED RATIO 1.5 RATIO; MAGNESIUM 1.8 MG/DL (1.5-2.5); PROTHROMBIN TIME - PATIENT 17.3 SEC (9.8-11.6)
[2016-12-16 22:40] LABS: ALT (GPT) 25 U/L (12-78); AST (GOT) 22 U/L (15-37); GLOMERULAR FILTRATION RATE 43 ML/MIN (>89)
[2016-12-16 22:41] LABS: TOTAL BILIRUBIN ADULT 0.4 MG/DL (0.2-1.0)
[2016-12-16 22:43] LABS: ALKALINE PHOSPHATASE 162 U/L (45-117)
[2016-12-16 23:13] LABS: CREATINE KINASE 34 U/L (39-308)
[2016-12-16 23:51] VITALS: BP 152/70; PULSE 82; RESP 18; O2SAT 94
[2016-12-17 00:45] VITALS: BP 158/73; PULSE 78; RESP 17; O2SAT 97
[2016-12-17 01:03] LABS: BLOOD, URINE NEG (NEG); GLUCOSE,URINE NEG (NEG); KETONE, URINE NEG (NEG); NITRITE,URINE NEG (NEG); PH, URINE 5.5 (5.0-8.5)
[2016-12-17 01:13] LABS: METHOD OF COLLECTION CATH; URINE COLOR YELLOW (YELLW/STRAW)
[2016-12-17 01:15] LABS: MUCUS URINE RARE /lpf (OCC); SQUAMOUS EPITHELIAL CELL URINE 0-5 /hpf (0-5)
[2016-12-17 01:17] LABS: COMMENT (UR) CATH-CULT NOT IND; CULTURE IF INDICATED CATH CULTURE NOT IND
[2016-12-17 01:45] VITALS: BP 174/74; PULSE 75; RESP 16; TEMP 98.9; O2SAT 96
--- NOTE | 2016-12-17 01:54 | PD ---
Physical Exam Time Seen by Provider: 01:[address] Tena left this patient with me to check the laboratory, chest x-ray and make a disposition. Data Data Last Documented VS Vital Signs Date Time Temp Pulse Resp B/P Pulse Ox O2 Delivery O2 Flow Rate FiO2 12/16/16 21:20 99.0 91 18 132/62 92 Room Air Orders Electrocardiogram (12/16/16 21:26) Complete Blood Count With Diff (12/16/16:) Comprehensive Metabolic Panel (12/16/16) Prothrombin Time / Inr (Pt) (12/16/16:) Act Partial Throm Time (Ptt) (12/16/16 21:) Lactic Acid Sepsis Protocol (12/16/16:) Magnesium (Mg) (12/16/16) Phosphorus (Po4) (12/16/16:) Lipase (12/16/16:) Ckmb (Isoenzyme) Profile (12/16/16:) Troponin I (12/16/16:) Urinalysis - C+S If Indicated (12/16/16 21:) Blood Culture (12/16/16 21:) Chest, Single Ap (12/16/16:) Blood Glucose (12/16/16:) Ecg Monitoring (12/16/16:) Iv Access Insert/Monitor (12/16/16:) Oximetry (12/16/16 21:) Oxygen Administration (12/16/16:) Acetaminophen (Tylenol) (12/16/16 21:30) Sodium Chlor 0.9% 1000 Ml Inj (Ns 1000 M (12/16/16 21:26) Sodium Chlor 0.9% 1000 Ml Inj (Ns 1000 M (12/16/16 21:26) Sodium Chlor 0.9% 1000 Ml Inj (Ns 1000 M (12/16/16 21:26) Vancomycin Inj (Vancomycin Inj) (12/16/16 21:30) Piperacil-Tazo 3.375 Gm Premix (Zosyn 3. (12/16/16 21:30) Influenzae A/B Antigen (12/16/16 22:36) Cath For Specimen (12/17/16 00:13) Urinary Catheter Insert/Apply (12/17/16 00:32) Labs Laboratory Tests Test 12/16/16 12/16/16 12/17/16 21:50 22:35 00:20 White Blood Count 10.1 TH/MM3 Red Blood Count 4.52 MIL/MM3 Hemoglobin 11.5 GM/DL Hematocrit 35.0 % Mean Corpuscular Volume 77.4 FL Mean Corpuscular Hemoglobin 25.4 PG Mean Corpuscular Hemoglobin 32.8 % Concent Red Cell Distribution Width 15.4 % Platelet Count 214 TH/MM3 Mean Platelet Volume 10.1 FL Neutrophils (%) (Auto) 83.1 % Lymphocytes (%) (Auto) 6.0 % Monocytes (%) (Auto) 6.9 % Eosinophils (%) (Auto) 1.0 % Basophils (%) (Auto) 3.0 % Neutrophils # (Auto) 8.4 TH/MM3 Lymphocytes # (Auto) 0.6 TH/MM3 Monocytes # (Auto) 0.7 TH/MM3 Eosinophils # (Auto) 0.1 TH/MM3 Basophils # (Auto) 0.3 TH/MM3 CBC Comment DIFF FINAL Differential Comment Prothrombin Time 17.3 SEC Prothromb Time International 1.5 RATIO Ratio Activated Partial 34.3 SEC Thromboplast Time Sodium Level 140 MEQ/L Potassium Level 4.1 MEQ/L Chloride Level 103 MEQ/L Carbon Dioxide Level 28.0 MEQ/L Anion Gap 9 MEQ/L Blood Urea Nitrogen 31 MG/DL Creatinine 1.60 MG/DL Estimat Glomerular Filtration 43 ML/MIN Rate Random Glucose 124 MG/DL Calcium Level 8.4 MG/DL Phosphorus Level 1.9 MG/DL Magnesium Level 1.8 MG/DL Total Bilirubin 0.4 MG/DL Aspartate Amino Transf 22 U/L (AST/SGOT) Alanine Aminotransferase 25 U/L (ALT/SGPT) Alkaline Phosphatase 162 U/L Total Creatine Kinase 34 U/L Troponin I 0.04 NG/ML Total Protein 6.9 GM/DL Albumin 2.9 GM/DL Lipase 105 U/L Lactic Acid Level 1.3 mmol/L Urine Collection Type CATH Urine Color YELLOW Urine Turbidity CLEAR Urine pH 5.5 Urine Specific [place] 1.009 Urine Protein 30 mg/dL Urine Glucose (UA) NEG mg/dL Urine Ketones NEG mg/dL Urine Occult Blood NEG Urine Nitrite NEG Urine Bilirubin NEG Urine Leukocyte Esterase NEG Urine Squamous Epithelial 0-5 /hpf Cells Urine Mucus RARE /lpf Microscopic Urinalysis Comment CATH-CULT NOT IND MDM Medical Record Reviewed: Yes Supervised Visit with SANG: Yes Interpretation(s) The urinalysis is normal and culture is not indicated. The CBC is normal except for a slight anemia with a hemoglobin 11.5 and hematocrit of 35.0. There are 83% neutrophils. The ProTime is 17.3 with an INR 1.5 and a PTT of 34.3. The chest x-ray shows bibasilar atelectasis but no acute change. The influenza A/B antigen is negative for flu a and flu B antigen. The lactic acid is normal. Differential Diagnosis Sepsis, pneumonia, bronchitis, electrolyte disorder, dehydration, urinary tract infection Narrative Course At this time the patient has a fever etiology undetermined. I cannot call it sepsis. He had blood cultures done today and the patient will follow-up with Dr. Briggs. Sepsis Criteria SIRS Criteria (2 or more): Heart rate over 90 Diagnosis Primary Impression: Fever of unknown origin Additional Instruction: As we discussed, follow-up with Dr. Briggs. When you see her, the blood cultures drawn today may have been completed. Med/Other Pt SpecificInfo: No Change to Meds Disposition: 01 DISCHARGE HOME Condition: Stable Santo Lorenzo MD Dec 17, 2016 01:54
--- NOTE | 2016-12-17 14:45 | EKG ---
Date Performed: 12/16/2016 Time Performed: 22:20:32 PTAGE: 66 years EKG: Sinus rhythm Leftward axis Lateral T wave changes are nonspecific Borderline ECG NO SIGNIFICANT CHANGE FROM PRIOR ELECTROCARDIOGRAM. PREVIOUS TRACING : 12/07/2016 07.14 DOCTOR: Raciel Shearer Interpretating Date/Time 12/17/2016 14:43:27
== END 2016-12-17 02:38 | disposition home or self-care (01) ==
LOC: PHED 20:38
DX: R50.9 Fever, unspecified (principal); E78.00 Pure hypercholesterolemia, unspecified; I50.9 Heart failure, unspecified; J44.9 Chronic obstructive pulmonary disease, unspecified; I25.10 Atherosclerotic heart disease of native coronary artery without angina pectoris; E11.9 Type 2 diabetes mellitus without complications; I10 Essential (primary) hypertension; I25.2 Old myocardial infarction; Z95.1 Presence of aortocoronary bypass graft; Z85.21 Personal history of malignant neoplasm of larynx
CPT/HCPCS: 51702; 71010; 80053; 81001; 82550; 83605; 83690; 83735; 84100; 84484; 85025; 85610; 85730; 87040; 87804; 93005; 96361; 96365; 96367; 99285; J2543; J3370; J7030; J7050

== ENCOUNTER 2017-02-16 14:32 | Inpatient (IN) | payer MEDICARE, MEDICAID ==
[~2017-02-16] VITALS: Ht 182.9 cm; Wt 72.9 kg
[~2017-02-16 14:32] MED LIST changes: -CYAN100015 BUCCAL; -LISI-519 PO; -[UNRECOGNIZED DRUG - CODE]; -[UNRECOGNIZED DRUG - CODE] PEG
[2017-02-16 14:36] VITALS: BP 113/74; PULSE 86; RESP 16; TEMP 98.2; O2SAT 97
[2017-02-16] MEDS ORDERED: SODIUM CHLOR 0.9% 1000 ML INJ 1,000 ML IV ONE (15:00)
--- NOTE | 2017-02-16 15:06 | PD ---
HPI Chief Complaint: General Weakness Time Seen by Provider: 14:42 Travel History International Travel<30 days: No Contact w/Intl Traveler<30days: No Traveled to known affect area: No History of Present Illness HPI This 66-year-old male is brought by his because of generalized weakness and confusion. She says that he has not been working walking well for the last 3 days. She says the bumps into frias and has trouble supporting himself. He is also been confused at times. He thought he was in [place] earlier today. He has a history of squamous cell carcinoma of the hypopharynx. This was discovered in October 2015. He was treated at [facility] with radiation. He was not thought to be a candidate for chemotherapy or surgery he goes to [facility]. He has a G-tube in place for feeding. He had been eating a week and a half ago. His says that he stop eating a week and a half ago because he was not able to swallow. He is complaining of some pain in the right side of his head. He stopped smoking in 2005. He has not had any fever. He does have a history of aspiration pneumonia. 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) Cardiac Catheterization: Yes Cardiovascular Problems: Yes High Cholesterol: Yes Chemotherapy: No Congestive Heart Failure: Yes COPD: Yes Cerebrovascular Accident: Yes Coronary Artery Disease: Yes Diabetes: Yes Patient Takes Glucophage: No Diminished Hearing: No Endocrine: Yes Gastrointestinal Disorders: Yes GERD: Yes Genitourinary: Yes (POLYCYSTIC KIDNEY DISEASE) Hypertension: Yes Immune Disorder: No Implanted Vascular Access Dvce: No Kidney Stones: Yes Musculoskeletal: Yes Neurologic: Yes Psychiatric: No Reproductive: No Respiratory: Yes (COPD) Immunizations Current: Yes Myocardial Infarction: Yes Radiation Therapy: No Renal Failure: Yes Past Surgical History Abdominal Surgery: Yes (GALLBALADDER REMOVAL) Arteriovenous Shunt: No Cardiac Surgery: Yes (VASCULAR LEGS) Cholecystectomy: Yes Coronary Artery Bypass Graft: Yes Coronary Stent: Yes Ear Surgery: No Endocrine Surgery: No Eye Surgery: No Genitourinary Surgery: No Gynecologic Surgery: No Insulin Pump: No Joint Replacement: Yes (SCREWS IN LEFT SHOULDER) Oral Surgery: Yes (THROAT DIALATION) Thoracic Surgery: Yes (CABG) Tonsillectomy: Yes Other Surgery: Yes Family History Family Myocardial Infarction: Yes Social History Alcohol Use: No Tobacco Use: No (QUIT 2008) Substance Use: No Allergies-Medications (Allergen,Severity, Reaction): Coded Allergies: HMG-CoA Reductase Inhibitors (Verified Allergy, Severe, 02/16/17) Niacin (Verified Allergy, Severe, 02/16/17) CAUSES HIM TO FEEL HOT Oily Fish (Verified Allergy, Intermediate, Diarrhea, 02/16/17) Reported Meds & Prescriptions Reported Meds & Active Scripts Active Feeding Bottles/Standard (Feeding Supplies) 1 Mis Mis Units Protonix Liq (Pantoprazole Sodium) 40 Mg Pkt 40 Mg PO DAILY [place]eltassa (Patiromer Sorbitex Calcium) 8.4 Gm Pow 8.4 Gm PO DAILY Sodium Bicarbonate 325 Mg Tab 325 Mg PO Q12HR Lipitor (Atorvastatin Calcium) 40 Mg Tab 40 Mg PO DAILY Reported Metoprolol Tartrate 25 Mg Tab 12.5 Mg PO HS Metoprolol Tartrate 25 Mg Tab 25 Mg PO DAILY Spiriva Handihaler (Tiotropium Inh) 18 Mcg Cap 18 Mcg INH DAILY 1 capsule = 18 mcg Claritin (Loratadine) 10 Mg Tab 10 Mg PO DAILY Citalopram (Citalopram Hydrobromide) 10 Mg Tab 10 Mg PO DAILY Calcitriol 0.25 Mcg Cap 0.25 Mcg PO DAILY [place] (Hydrocodone-Acetaminophen) 10-325 Mg Tab 1 Tab PO Q6H PRN Gabapentin 300 Mg Cap 300 Mg PO BID Flonase Nasal [place] (Fluticasone Nasal [place]) 50 Mcg/Act [place] 50 Mcg EACH NARE DAILY Ventolin Hfa 18 GM Inh (Albuterol Sulfate) 90 Mcg/Act Aer 2 Puff INH Q4H PRN Review of Systems General / Constitutional: No: Fever, Chills Eyes: No: Diploplia HENT: Positive: Headaches, No: Rhinorrhea Cardiovascular: No: Chest Pain or Discomfort, Palpitations Respiratory: No: Cough Gastrointestinal: Positive: Dysphagia Genitourinary: No: Urgency, Frequency Musculoskeletal: No: Myalgias, Arthralgias Skin: No Rash, No Itching Neurologic: Positive: Weakness Hematologic/Lymphatic: No: Easy Bruising Physical Exam Narrative GENERAL: Chronically ill-appearing male SKIN: Focused skin assessment warm/dry. HEAD: Atraumatic. Normocephalic. EYES: Pupils equal and round. No scleral icterus. No injection or drainage. ENT: No nasal bleeding or discharge. Mucous membranes pink and moist. NECK: Trachea midline. No JVD. CARDIOVASCULAR: Regular rate and rhythm. No murmur appreciated. RESPIRATORY: No accessory muscle use. Clear to auscultation. Breath sounds equal bilaterally. GASTROINTESTINAL: Abdomen soft, non-tender, nondistended. Hepatic and splenic margins not palpable. Feeding tube is in place MUSCULOSKELETAL: No obvious deformities. No clubbing. No cyanosis. No edema. NEUROLOGICAL: Awake and alert. No obvious cranial nerve deficits. Motor grossly within normal limits. Normal speech. PSYCHIATRIC: Appropriate mood and affect; insight and judgment normal. Is oriented to the year but not the month Data Data Last Documented VS Vital Signs Date Time Temp Pulse Resp B/P Pulse Ox O2 Delivery O2 Flow Rate FiO2 02/16/17 14:39 16 97 02/16/17 14:36 98.2 86 113/74 Orders Complete Blood Count With Diff (02/16/17 14:59) Comprehensive Metabolic Panel (02/16/17 14:59) Prothrombin Time / Inr (Pt) (02/16/17 14:59) Act Partial Throm Time (Ptt) (02/16/17 14:59) Urinalysis - C+S If Indicated (02/16/17 14:59) Magnesium (Mg) (02/16/17 14:59) Thyroid Stimulating Hormone (02/16/17 14:59) Chest, Single Ap (02/16/17 14:59) Ct Brain W/O Iv Contrast(Rout) (02/16/17 14:59) Sodium Chlor 0.9% 1000 Ml Inj (Ns 1000 M (02/16/17 15:00) Admit Order (Ed Use Only) (02/16/17 16:04) Place In Observation (02/16/17 ) Vital Signs (Adult) Q4H (02/16/17 16:03) Activity Bed Rest (02/16/17 16:03) Touch Up Painter Hand / Telemetry .CONTINUOUS (02/16/17 16:03) Intake + Output MALKA.QSHIFT (02/16/17 16:03) Diet Heart Healthy (02/16/17 Dinner) Sodium Chlor 0.9% 1000 Ml Inj (Ns 1000 M (02/16/17 16:03) Acetaminophen (Tylenol) (02/16/17 16:15) Ondansetron Inj (Zofran Inj) (02/16/17 16:15) Basic Metabolic Panel (Bmp) (02/17/17 06:00) Complete Blood Count With Diff (02/17/17 06:00) Creatine Kinase (Cpk) (02/16/17 16:03) Creatine Kinase (Cpk) (02/16/17 22:03) Creatine Kinase (Cpk) (02/17/17 04:03) Troponin I (02/16/17 16:03) Troponin I (02/16/17 22:03) Troponin I (02/17/17 04:03) Electrocardiogram (02/16/17 16:03) Electrocardiogram (02/16/17 22:03) Electrocardiogram (02/17/17 04:03) Pt Request For Service (02/16/17 16:03) Ot Request For Service (02/16/17 16:03) Speech Therapy Consult-Eval/Tx (02/16/17 16:03) Scd Bilateral/Knee High MALKA.BID (02/16/17 16:03) Kp Bilateral/Knee High MALKA.QSHIFT (02/16/17 16:03) Naloxone Inj (Narcan Inj) (02/16/17 16:15) Docusate Sodium-Senna (Genoveva-Colace) (02/16/17 21:00) Magnesium Hydroxide Liq (Milk Of Magnesi (02/16/17 16:15) Sennosides (Senokot) (02/16/17 16:15) Bisacodyl Supp (Dulcolax Supp) (02/16/17 16:15) Lactulose Liq (Lactulose Liq) (02/16/17 16:15) Labs Laboratory Tests Test 02/16/17 15:10 White Blood Count 11.1 TH/MM3 Red Blood Count 4.84 MIL/MM3 Hemoglobin 12.0 GM/DL Hematocrit 36.6 % Mean Corpuscular Volume 75.6 FL Mean Corpuscular Hemoglobin 24.8 PG Mean Corpuscular Hemoglobin 32.8 % Concent Red Cell Distribution Width 15.8 % Platelet Count 238 TH/MM3 Mean Platelet Volume 9.4 FL Neutrophils (%) (Auto) 84.5 % Lymphocytes (%) (Auto) 7.3 % Monocytes (%) (Auto) 6.8 % Eosinophils (%) (Auto) 0.6 % Basophils (%) (Auto) 0.8 % Neutrophils # (Auto) 9.3 TH/MM3 Lymphocytes # (Auto) 0.8 TH/MM3 Monocytes # (Auto) 0.8 TH/MM3 Eosinophils # (Auto) 0.1 TH/MM3 Basophils # (Auto) 0.1 TH/MM3 CBC Comment AUTO DIFF Differential Comment AUTO DIFF CONFIRMED Tear Drop Cells 1+ Ovalocytes 1+ Keratocytes OCC Prothrombin Time 32.6 SEC Prothromb Time International 2.8 RATIO Ratio Activated Partial 55.2 SEC Thromboplast Time Sodium Level 138 MEQ/L Potassium Level 4.2 MEQ/L Chloride Level 103 MEQ/L Carbon Dioxide Level 23.7 MEQ/L Anion Gap 11 MEQ/L Blood Urea Nitrogen 34 MG/DL Creatinine 1.70 MG/DL Estimat Glomerular Filtration 40 ML/MIN Rate Random Glucose 131 MG/DL Calcium Level 9.0 MG/DL Magnesium Level 1.7 MG/DL Total Bilirubin 0.3 MG/DL Aspartate Amino Transf 48 U/L (AST/SGOT) Alanine Aminotransferase 77 U/L (ALT/SGPT) Alkaline Phosphatase 181 U/L Total Protein 7.4 GM/DL Albumin 2.4 GM/DL Thyroid Stimulating Hormone 1.660 uIU/ML 3rd Gen [facility] Medical Decision Making Medical Screen Exam Complete: Yes Emergency Medical Condition: Yes Medical Record Reviewed: Yes Differential Diagnosis Differential includes electrolyte imbalance, dehydration, CVA, metastatic cancer Narrative Course Patient's blood work shows a hemoglobin of 12. His BUNs is 34 and creatinine 1.7. suggesting some dehydration comparing it to previous values it is quite similar. I did stand the patient with the intent of checking his gait. On standing his blood pressure was 80/47 so his gait is not tested. CT scan of the brain is read as showing atrophy out of proportion to his age. There is no hemorrhage. INR is2.8 Diagnosis Primary Impression: Dehydration Additional Impression: Orthostatic hypotension Admitting Information Admitting Physician Requests: Jeffy Garcia MD Feb 16, 2017 15:06
[2017-02-16 15:30] LABS: AUTOMATED NEUTROPHIL # 9.3 TH/MM3 (1.8-7.7); BASOPHIL # 0.1 TH/MM3 (0-0.2); BASOPHIL % 0.8 % (0.0-2.0); EOSINOPHIL # 0.1 TH/MM3 (0-0.4); EOSINOPHIL % 0.6 % (0.0-4.0); HEMATOCRIT 36.6 % (39.0-51.0); LYMPH % 7.3 % (9.0-44.0); LYMPHOCYTE # 0.8 TH/MM3 (1.0-4.8); MEAN CELL VOLUME 75.6 FL (80.0-100.0); MEAN CORPUSCULAR HEMOGLOBIN 24.8 PG (27.0-34.0); MEAN CORPUSCULAR HGB CONC 32.8 % (32.0-36.0); MONO % 6.8 % (0.0-8.0); NEUT % 84.5 % (16.0-70.0); PLATELET COUNT 238 TH/MM3 (150-450); RED BLOOD COUNT 4.84 MIL/MM3 (4.50-5.90); RED CELL DISTRIBUTION WIDTH 15.8 % (11.6-17.2); WHITE BLOOD COUNT 11.1 TH/MM3 (4.0-11.0)
--- NOTE | 2017-02-16 15:32 | RADHPO ---
EXAM DATE/TIME: 02/16/2017 15:09 [facility] COMPARISON: CHEST SINGLE AP, December 16, 2016, 21:32. INDICATIONS : Short of breath, cough,dizzy, weakness, AMS, for 3 days MEDICAL HISTORY : Carcinoma, esophageal. Chronic obstructive pulmonary disease. Congestive heart failure. SURGICAL HISTORY : CABG. ENCOUNTER: Initial ACUITY: 3 days PAIN SCORE: 0/10 LOCATION: Bilateral chest FINDINGS: Postsurgical features of prior median sternotomy. No significant focal pleural or opacities. Cardiomediastinal contours are within normal limits. Bony thorax is intact. CONCLUSION: 1. No acute cardiopulmonary disease. Abe Lentz MD on February 16, 2017 at 15:29 Board Certified Radiologist. This report was verified electronically.
[2017-02-16 15:33] LABS: HEMO FLAGS AUTO DIFF
[2017-02-16 15:37] LABS: CHLORIDE 103 MEQ/L (98-107); POTASSIUM 4.2 MEQ/L (3.5-5.1); SODIUM (NA) 138 MEQ/L (136-145)
[2017-02-16 15:41] LABS: ANION GAP 11 MEQ/L (5-15); BICARBONATE 23.7 MEQ/L (21.0-32.0); BLOOD UREA NITROGEN 34 MG/DL (7-18); MAGNESIUM 1.7 MG/DL (1.5-2.5)
[2017-02-16 15:44] LABS: ALT (GPT) 77 U/L (12-78); APTT (PATIENT) 55.2 SEC (24.3-30.1); AST (GOT) 48 U/L (15-37); GLOMERULAR FILTRATION RATE 40 ML/MIN (>89); INTERNATIONAL NORMALIZED RATIO 2.8 RATIO; PROTHROMBIN TIME - PATIENT 32.6 SEC (9.8-11.6)
[2017-02-16 15:46] LABS: TOTAL BILIRUBIN ADULT 0.3 MG/DL (0.2-1.0)
[2017-02-16 15:47] LABS: ALKALINE PHOSPHATASE 181 U/L (45-117)
--- NOTE | 2017-02-16 15:52 | RADHPO ---
EXAM DATE/TIME: 02/16/2017 15:25 [facility] COMPARISON: No previous studies available for comparison. INDICATIONS : Dizziness, weakness and altered mental status. RADIATION DOSE: 57.98 CTDIvol (mGy) MEDICAL HISTORY : Cardiovascular disease. Cerebrovascular disease. Chronic obstructive pulmonary disease.Hypertension. SURGICAL HISTORY : CABG Coronary artery stent.Cholecystectomy. ENCOUNTER: Initial ACUITY: 3 days PAIN SCALE: 0/10 LOCATION: cranial TECHNIQUE: Multiple contiguous axial images were obtained of the head. Using automated exposure control and adj ustment of the mA and/or kV according to patient size, radiation dose was kept as low as reasonably a chievable to obtain optimal diagnostic quality images. FINDINGS: CEREBRUM: Moderate to severe cerebral volume loss, slightly out of proportion to age. Bilateral basal ganglia h ypodensities likely reflecting old lacunar infarcts. The ventricles are normal for degree of atrophy. No evidence of midline shift, mass lesion, hemorrhage or acute infarction. No extra-axial fluid co llections are seen. POSTERIOR FOSSA: The cerebellum and brainstem are intact. The 4th ventricle is midline. The cerebellopontine angle i s unremarkable. EXTRACRANIAL: The visualized portion of the orbits is intact. SKULL: The calvaria is intact. No evidence of skull fracture. CONCLUSION: 1. Moderate to severe cerebral atrophy that is slightly out of proportion to age. 2. Probable bilateral small old basal ganglia lacunar infarcts. 3. No acute intracranial abnormality. Abe Lentz MD on February 16, 2017 at 15:48 Board Certified Radiologist. This report was verified electronically.
[2017-02-16] MEDS ORDERED: SODIUM CHLOR 0.9% 1000 ML INJ 1,000 ML IV SCH (16:03)
[2017-02-16 16:06] LABS: KERATOCYTES OCC (NORMAL); OVALOCYTES 1+ (NORMAL); SCAN/DIFF AUTO DIFF CONFIRMED; TEARDROP RBCS 1+ (NORMAL)
[2017-02-16] MEDS ORDERED: LACTULOSE SYRUP 20 GM/30 ML CUP PO PRN (16:15)
[2017-02-16] MEDS ORDERED: BISACODYL 10 MG SUPP RECTAL PRN (16:15)
[2017-02-16] MEDS ORDERED: NALOXONE HCL 0.4 MG/ML AMP IV PRN (16:15)
[2017-02-16] MEDS ORDERED: SENNOSIDES 8.6 MG TAB PO PRN (16:15)
[2017-02-16] MEDS ORDERED: MAGNESIUM HYDROXIDE SUSP 30 ML CUP PO PRN (16:15)
[2017-02-16] MEDS ORDERED: ONDANSETRON HCL 4 MG/2 ML VIAL IVP PRN (16:15)
[2017-02-16] MEDS ORDERED: ACETAMINOPHEN 325 MG TAB PO PRN (16:15)
[2017-02-16] MEDS ORDERED: CYMB30CA PO ×2 (16:25→16:26)
[2017-02-16 16:48] LABS: CREATINE KINASE 22 U/L (39-308)
[2017-02-16 17:10] VITALS: BP 136/79
[2017-02-16 17:25] VITALS: BP 171/78; PULSE 62; RESP 20; TEMP 96.2; O2SAT 97
[2017-02-16 18:00] VITALS: PULSE 85
--- NOTE | 2017-02-16 18:21 | HHI.HP ---
cc: Juliane Briggs MD [facility] Primary Care Physician Juliane Briggs MD Admission Diagnosis DEHYDRATION, ORTHOSTATIC HYPOTENSION Diagnoses: (1) Dehydration (2) Orthostatic hypotension (3) CKD (chronic kidney disease), stage IV (4) Hypotension (5) COPD (chronic obstructive pulmonary disease) (6) Diabetes mellitus with peripheral vascular disease Chief Complaint: Dehydration Travel History International Travel<30 Days: No Contact w/Intl Traveler <30 Da: No Traveled to Known Affected Are: No History of Present Illness The patient is a 66-year-old male brought to the ER by his with complaint of generalized weakness and confusion. Over the last 3 days he has had increasing difficulty with gait. He has been bumping into frias and having difficulty standing. He has also had increased confusion. According to his , he stated earlier today he was in [place]. He is now more alert and oriented. He denies pain. He did have lightheadedness with standing in the ER. His blood pressure dropped at that time as well. He denies chest pain or dyspnea. Denies headache. He has been taking tube feeds. He has not eaten anything by mouth for the last 10 days. His states that she has been giving him free water flushes as well, but feels that he is dehydrated. Review of Systems Constitutional: DENIES: Fever, Chills, Night Sweats Eyes: DENIES: Blurred vision, Vision loss Ears, nose, mouth, throat: DENIES: Hearing loss Respiratory: DENIES: Cough, Wheezing, Sputum production, Shortness of breath Cardiovascular: DENIES: Chest pain, Palpitations, Dyspnea on Exertion, Lower Extremity Edema Gastrointestinal: DENIES: Abdominal pain, Constipation, Diarrhea, Nausea, Vomiting Genitourinary: DENIES: Urinary frequency, Urinary incontinence, Urgency, Hematuria, Dysuria, Nocturia Musculoskeletal: DENIES: Joint pain, Muscle aches Integumentary: DENIES: Pruritus, Rash Hematologic/lymphatic: DENIES: Bruising Neurologic: COMPLAINS OF: Abnormal gait, Speech Problems, Poor Balance, DENIES : Headache Psychiatric: COMPLAINS OF: Confusion Past Family Social History Past Medical History Laryngeal cancer diagnosed September 2015 and status post radiation therapy History of aspiration pneumonia Polycystic kidney disease CAD, history of CABG Diabetes Hypertension hyperlipidemia History of nephrolithiasis Chronic kidney disease stage IV PVD GERD Past Surgical History Cardiac stent CABG 2012 Cholecystectomy 2010 Bilateral femoral bypass 2008 Kidney stents 2008 Shoulder surgery at age 14 Reported Medications Feeding Bottles/Standard (Feeding Supplies) 1 Mis Mis Units Protonix Liq (Pantoprazole Sodium) 40 Mg Pkt 40 Mg PO DAILY [place]eltassa (Patiromer Sorbitex Calcium) 8.4 Gm Pow 8.4 Gm PO DAILY Sodium Bicarbonate 325 Mg Tab 325 Mg PO Q12HR Lipitor (Atorvastatin Calcium) 40 Mg Tab 40 Mg PO DAILY Metoprolol Tartrate 25 Mg Tab 12.5 Mg PO HS Metoprolol Tartrate 25 Mg Tab 25 Mg PO DAILY Spiriva Handihaler (Tiotropium Inh) 18 Mcg Cap 18 Mcg INH DAILY 1 capsule = 18 mcg Claritin (Loratadine) 10 Mg Tab 10 Mg PO DAILY Citalopram (Citalopram Hydrobromide) 10 Mg Tab 10 Mg PO DAILY Calcitriol 0.25 Mcg Cap 0.25 Mcg PO DAILY [place] (Hydrocodone-Acetaminophen) 10-325 Mg Tab 1 Tab PO Q6H PRN Gabapentin 300 Mg Cap 300 Mg PO BID Flonase Nasal [place] (Fluticasone Nasal [place]) 50 Mcg/Act [place] 50 Mcg EACH NARE DAILY Ventolin Hfa 18 GM Inh (Albuterol Sulfate) 90 Mcg/Act Aer 2 Puff INH Q4H PRN Allergies: Coded Allergies: HMG-CoA Reductase Inhibitors (Verified Allergy, Severe, 02/16/17) Niacin (Verified Allergy, Severe, 02/16/17) CAUSES HIM TO FEEL HOT Oily Fish (Verified Allergy, Intermediate, Diarrhea, 02/16/17) Family History Heart disease Social History Quit smoking in 2008. Denies alcohol or illicit drug use. Physical Exam Vital Signs Vital Signs Date Time Temp Pulse Resp B/P Pulse Ox O2 Delivery O2 Flow Rate FiO2 02/16/17 17:25 96.2 62 20 171/78 97 02/16/17 17:10 80 16 136/79 97 02/16/17 14:39 16 97 02/16/17 14:36 98.2 86 16 113/74 97 Physical Exam GENERAL: Chronically ill-appearing male in no acute distress. HEENT: Normocephalic, atraumatic. Pupils equal, round and reactive. Extraocular movements intact. No scleral icterus. No injection or drainage. Oropharynx is clear. Mucous membranes are moist. CARDIOVASCULAR: Regular rate and rhythm without murmurs, gallops, or rubs. RESPIRATORY: Clear to auscultation. No wheezes, rales, or rhonchi. Breathing is non-labored. GASTROINTESTINAL: Abdomen soft, non-tender, nondistended. PEG tube in place. EXTREMITIES: No lower extremity edema. No calf tenderness. PSYCH: Alert. Oriented to year, month, city, hospital. Laboratory Laboratory Tests Test 02/16/17 15:10 White Blood Count 11.1 Red Blood Count 4.84 Hemoglobin 12.0 Hematocrit 36.6 Mean Corpuscular Volume 75.6 Mean Corpuscular Hemoglobin 24.8 Mean Corpuscular Hemoglobin 32.8 Concent Red Cell Distribution Width 15.8 Platelet Count 238 Mean Platelet Volume 9.4 Neutrophils (%) (Auto) 84.5 Lymphocytes (%) (Auto) 7.3 Monocytes (%) (Auto) 6.8 Eosinophils (%) (Auto) 0.6 Basophils (%) (Auto) 0.8 Neutrophils # (Auto) 9.3 Lymphocytes # (Auto) 0.8 Monocytes # (Auto) 0.8 Eosinophils # (Auto) 0.1 Basophils # (Auto) 0.1 CBC Comment AUTO DIFF Differential Comment AUTO DIFF CONFIRMED Tear Drop Cells 1+ Ovalocytes 1+ Keratocytes OCC Prothrombin Time 32.6 Prothromb Time International 2.8 Ratio Activated Partial 55.2 Thromboplast Time Sodium Level 138 Potassium Level 4.2 Chloride Level 103 Carbon Dioxide Level 23.7 Anion Gap 11 Blood Urea Nitrogen 34 Creatinine 1.70 Estimat Glomerular Filtration 40 Rate Random Glucose 131 Calcium Level 9.0 Magnesium Level 1.7 Total Bilirubin 0.3 Aspartate Amino Transf 48 (AST/SGOT) Alanine Aminotransferase 77 (ALT/SGPT) Alkaline Phosphatase 181 Total Creatine Kinase 22 Troponin I LESS THAN 0.02 Total Protein 7.4 Albumin 2.4 Thyroid Stimulating Hormone 1.660 3rd Gen Result Diagram: 02/16/17 1510 02/16/17 1510 Imaging Last Impressions Head CT 02/16/17 1459 Signed Impressions: Service Date/Time: Thursday, February 16, 2017 15:25 - CONCLUSION: 1. Moderate to severe cerebral atrophy that is slightly out of proportion to age. 2. Probable bilateral small old basal ganglia lacunar infarcts. 3. No acute intracranial abnormality. Abe Lentz MD Chest X-Ray 02/16/17 1452 Signed Impressions: Service Date/Time: Thursday, February 16, 2017 15:09 - CONCLUSION: 1. No acute cardiopulmonary disease. Abe Lentz MD Assessment and Plan Assessment and Plan 1. Dehydration: Continue tube feeds, IV fluids. 2. Orthostatic hypotension: Secondary to above. 3. Confusion: Possibly secondary to dehydration. Improving. 4. Acute kidney injury superimposed on chronic kidney disease: Monitor BUN and creatinine. Continue IV fluids. 5. Peripheral vascular disease: Patient was hospitalized in November of this year and was evaluated by cardiology. He was found to have severe in-stent stenosis of the right external iliac artery and included right SFA and right femoropopliteal bypass graft. The patient declined further intervention at that time. He was started on Plavix and cilostazol, which he is apparently not currently taking. Will restart these medications. 6. DVT prophylaxis: Heparin. Kermit Mendoza MD Feb 16, 2017 18:21
[2017-02-16 18:34] LABS: BLOOD, URINE NEG (NEG); GLUCOSE,URINE NEG (NEG); KETONE, URINE NEG (NEG); NITRITE,URINE NEG (NEG); PH, URINE 5.5 (5.0-8.5)
[2017-02-16] MEDS ORDERED: ALBUTEROL SULFATE 90 MCG/ACT HFA 8 GM INHALER INH PRN (18:45)
[2017-02-16 19:00] LABS: URINE COLOR YELLOW (YELLW/STRAW)
[2017-02-16] MEDS ORDERED: PILL SPLITTER OTHER PRN (19:00)
[2017-02-16 19:02] LABS: COMMENT (UR) CULT NOT INDICATED; CULTURE IF INDICATED CULT NOT INDICATED; SQUAMOUS EPITHELIAL CELL URINE 0-5 /hpf (0-5)
[2017-02-16 20:00] VITALS: BP 169/86; PULSE 75; RESP 20; TEMP 98; O2SAT 95
[2017-02-16] MEDS: DOCUSATE SODIUM 50 MG/SENNA 8.6 MG TAB PO SCH (21:00)
[2017-02-16] MEDS: METOPROLOL TARTRATE 25 MG TAB PO SCH (21:17)
[2017-02-16] MEDS: GABAPENTIN 300 MG CAP PO SCH (21:17)
[2017-02-16] MEDS: SODIUM BICARBONATE 325 MG TAB PO SCH (21:17)
[2017-02-16] MEDS: HEPARIN SODIUM - SQ 10,000 UNITS/ML VIAL SQ SCH (21:18)
[2017-02-16] MEDS: DULoxetine HCl DR 30 MG CAP PO SCH (21:32)
[2017-02-16 22:14] LABS: CREATINE KINASE 20 U/L (39-308)
[2017-02-17] VITALS: BP 154/74; PULSE 77; RESP 20; TEMP 98.7; O2SAT 96
[2017-02-17 04:00] VITALS: BP 177/87; PULSE 75; RESP 20; TEMP 96.1; O2SAT 96
[2017-02-17 04:38] LABS: CREATINE KINASE 25 U/L (39-308)
[2017-02-17] MEDS: CILOSTAZOL 50 MG TAB PO SCH ×2 (06:19→17:56)
[2017-02-17 06:44] LABS: AUTOMATED NEUTROPHIL # 7.1 TH/MM3 (1.8-7.7); BASOPHIL % 0.2 % (0.0-2.0); EOSINOPHIL # 0.1 TH/MM3 (0-0.4); EOSINOPHIL % 0.8 % (0.0-4.0); HEMATOCRIT 37.2 % (39.0-51.0); LYMPH % 10.8 % (9.0-44.0); MEAN CELL VOLUME 75.3 FL (80.0-100.0); MEAN CORPUSCULAR HEMOGLOBIN 24.7 PG (27.0-34.0); MEAN CORPUSCULAR HGB CONC 32.8 % (32.0-36.0); MONO % 7.5 % (0.0-8.0); NEUT % 80.7 % (16.0-70.0); PLATELET COUNT 242 TH/MM3 (150-450); RED BLOOD COUNT 4.94 MIL/MM3 (4.50-5.90); RED CELL DISTRIBUTION WIDTH 15.6 % (11.6-17.2); WHITE BLOOD COUNT 8.9 TH/MM3 (4.0-11.0)
[2017-02-17 06:47] LABS: HEMO FLAGS AUTO DIFF
[2017-02-17 06:50] LABS: POTASSIUM 4.2 MEQ/L (3.5-5.1)
[2017-02-17 06:58] LABS: BICARBONATE 25.6 MEQ/L (21.0-32.0)
--- NOTE | 2017-02-17 07:36 | HHI.FPPN ---
Subjective Remarks Doesn't know how he got to the hospital. When I told him about his daughter calling me due to confusion and bringing him to the hospital he states she wouldn't have done that without telling him. When discussing his actions at home (seeing children running around the house, not recognizing that his house was his, not remembering the present his daughter gave him 15 minutes prior) he states that his is making it up to get him out of the house. Repeats that he doesn't want to be in the hospital, wants to go to [place] and live with his siblings (yet he hasn't spoken with any of his siblings about that). He has been increasingly antagonistic toward his in the past weeks, recently told me he wanted to leave. Daughter notes he has been more forgetful. I'm not sure that he and his are getting his meds correctly. He states he has been eating by mouth, states he hasn't for 10 days, has been refusing. He continues to lose weight. Taking 6 shakes via the tube per day but notes he will argue about doing so also. Gets GERD with tube feeds at night. Sleeping a lot. We recently found that he was getting remeron from his oncologist yet was also apparently on citalopram and I had changed the citalopram to cymbalta to try to have mood and neuropathy better. cannot really tell me how and what meds he is getting (doesn't bring lists). Objective Vitals Vital Signs Date Time Temp Pulse Resp B/P Pulse Ox O2 Delivery O2 Flow Rate FiO2 02/17/17 04:00 96.1 75 20 177/87 96 02/17/17 00:00 98.7 77 20 154/74 96 02/16/17 20:00 98.0 75 20 169/86 95 02/16/17 18:00 85 02/16/17 17:25 96.2 62 20 171/78 97 02/16/17 17:10 80 16 136/79 97 02/16/17 14:39 16 97 02/16/17 14:36 98.2 86 16 113/74 97 I/O 02/16/17 02/16/17 02/16/17 02/17/17 02/17/17 02/17/17 07:00 15:00 23:00 07:00 15:00 23:00 Intake Total 220 ml 635 ml Balance 220 ml 635 ml Intake Oral 120 ml 0 ml IV Total 100 ml 635 ml # Voids 1 3 Result Diagram: 02/17/1760002/17/17600 Objective Remarks Gen: cachectic, elderly WM, no distress but gets aggrivated with questioning, insists people are making up stories to get rid of him CV: RRR, II/ murmur Lungs: mild apical wheezing, no rhonchi, frequent coughing, moist Abd: soft, NT, PEG tube site clean Ext: thin, minimally palpable pulses, no sores, old scars, fair cap refill skin: overall pale, no sores noted Neuro: Pt initially not oriented to hospital but could tell me city, state, year , month, season, president. Forgets topic of conversation frequently. Paranoid that his is trying to get rid of him, intermittantly antagonistic toward his family. Can't tell me his meds (which isn't new) or tube feeds. Per his family he has refused the thickener and still insists on eating without thickened liquids. We discussed hospice vs continued aggressive care and he declined hospice, yet wants to go home without eval. We finally decided to do his eval appropriately and get his meds stabilized. Urinary Catheter: No Vascular Central Line Catheter: No A/P Problem List: (1) Orthostatic hypotension Status: Acute Plan: Treated with fluids last PM (2) Failure to thrive in adult Status: Chronic Plan: He has continued to lose weight despite tube feeding and attempts at PO intake. Will do 3 day calorie count and have nutrition eval intake. is to bring in his tube feeding cans. (3) Confusion Status: Acute Plan: intermittant. Suspect TIAs. check carotid doppler (4) Laryngeal cancer Status: Acute Plan: last check he was okay at [facility] but since then has right neck mass and right sided head pain (his symptoms with the laryngeal CA last time). (5) Claudication of right lower extremity Status: Chronic Plan: He has been seeing Dr. Narayanan. considering treatement. Looks like he hasn' t been doing the statin. Will check office records. (6) CAD (coronary artery disease) Status: Chronic Plan: He is s/p bypass. Not really symptomatic. Needs strict medical management. Still with PVD (7) Acute on chronic kidney failure Status: Chronic Plan: h/p polycystic kidney disease. Not yet on dialysis. Has been under fair control (actually better than he had in the past) Problem Qualifiers (1) CAD (coronary artery disease): Qualified Code: I25.10 - Coronary artery disease involving mus[place] coronary artery of mus[place]ogee heart without angina pectoris (2) Acute on chronic kidney failure: Juliane Briggs MD Feb 17, 2017 07:36
[2017-02-17 07:40] LABS: SCAN/DIFF AUTO DIFF CONFIRMED
[2017-02-17 08:00] VITALS: BP 118/71; PULSE 86; RESP 20; TEMP 96.4; O2SAT 98
[2017-02-17] MEDS ORDERED: [UNRECOGNIZED DRUG - OTHER] PO SCH (09:00)
[2017-02-17] MEDS: TIOTROPIUM BROMIDE 18 MCG INH INH SCH (09:00)
[2017-02-17] MEDS ORDERED: PANTOPRAZOLE PO SCH (09:00)
[2017-02-17] MEDS: DOCUSATE SODIUM 50 MG/SENNA 8.6 MG TAB PO SCH ×2 (10:24→21:05)
[2017-02-17] MEDS: CLOPIDOGREL 75 MG TAB PO SCH (10:24)
[2017-02-17] MEDS: LORATADINE 10 MG TAB PO SCH (10:24)
[2017-02-17] MEDS: SODIUM BICARBONATE 325 MG TAB PO SCH ×2 (10:24→21:04)
[2017-02-17] MEDS: METOPROLOL TARTRATE 25 MG TAB PO SCH ×2 (10:24→21:05)
[2017-02-17] MEDS: CALCITRIOL 0.25 MCG CAP PO SCH (10:24)
[2017-02-17] MEDS: GABAPENTIN 300 MG CAP PO SCH ×2 (10:25→21:05)
[2017-02-17] MEDS: HEPARIN SODIUM - SQ 10,000 UNITS/ML VIAL SQ SCH ×2 (10:25→21:06)
[2017-02-17] MEDS: ACETAMINOPHEN/HYDROcodone 325 MG/10 MG TAB PO PRN ×2 (10:49→19:52)
[2017-02-17 12:00] VITALS: BP 155/94; PULSE 68; RESP 20; TEMP 97.4; O2SAT 97
[2017-02-17] MEDS ORDERED: PATIROMER 8.4 GM PO SCH (12:00)
--- NOTE | 2017-02-17 12:18 | RADHPO ---
EXAM DATE/TIME: 02/17/2017 09:10 [facility] COMPARISON: No previous studies available for comparison. INDICATIONS : Palpable right neck mass. MEDICAL HISTORY : Myocardial infarction. Hypercholesterolemia. Chronic obstructive pulmonary disease. CVA. Peripheral n europathy. CHF. CAD. Peripheral vascular disease. Anticoagulant therapy. Hypertension. GERD. Polycys tic kidney disease. Renal failure. Fibromyalgia. Restless legs syndrome. Arthritis. Gout. Diabetes. D epression. SURGICAL HISTORY : Tonsillectomy. Cholecystectomy. Oral surgery. CABG. Cardiac catheterization. Coronary stent. CABG. Left shoulder surgery. ENCOUNTER: Initial ACUITY: 2 days PAIN SCORE: 3/10 LOCATION: Right neck. AREA EVALUATED: Right anterior neck. FINDINGS: There is a complex ill-defined hypoechoic mass seen at the anterior right neck measuring 4.6 x 4.2 x 2.3 cm. This appears separate and superior to the thyroid. CONCLUSION: 4.6 cm complex mass in the right anterior neck. It is nonspecific. Possible etiologies include an abs cess versus enlarged ill-defined adenopathy. It is uncertain if this is filled with complex fluid or solid. It could be better characterized with a CT soft tissue neck. Tomi Bush MD on February 17, 2017 at 12:13 Board Certified Radiologist. This report was verified electronically.
--- NOTE | 2017-02-17 12:35 | HHI.PR ---
Addendum to Inpatient Note Addendum Reason: Additional Documentation Additional Information I spoke with radiology: u/s of the neck with the mass, will start with CT neck noncontrast and see what we can accomplish--trying to avoid contrast due to renal issues. Carotids were done and sounds stable from last year. Juliane Briggs MD Feb 17, 2017 12:35
--- NOTE | 2017-02-17 14:22 | EKG ---
Date Performed: 02/16/2017 Time Performed: 17:08:18 PTAGE: 66 years EKG: Sinus rhythm NONSPECIFIC T-WAVE ABNORMALITY Since previous tracing, no significant change noted BORDERLINE ECG PREVIOUS TRACING : 12/16/2016 22.20 DOCTOR: Steven Mccullough Interpretating Date/Time 02/17/2017 14:18:53
--- NOTE | 2017-02-17 14:23 | EKG ---
Date Performed: 02/17/2017 Time Performed: 03:03:22 PTAGE: 66 years EKG: Sinus rhythm POSSIBLE LEFT ATRIAL ENLARGEMENT NONSPECIFIC T-WAVE ABNORMALITY Since previous tracing, no significa nt change noted BORDERLINE ECG PREVIOUS TRACING : 02/16/2017 21.04 DOCTOR: Steven Mccullough Interpretating Date/Time 02/17/2017 14:19:27
--- NOTE | 2017-02-17 14:23 | EKG ---
Date Performed: 02/16/2017 Time Performed: 21:04:55 PTAGE: 66 years EKG: Sinus rhythm NONSPECIFIC T-WAVE ABNORMALITY Since previous tracing, no significant change noted BORDERLINE ECG PREVIOUS TRACING : 02/16/2017 17.08 DOCTOR: Steven Mccullough Interpretating Date/Time 02/17/2017 14:19:08
--- NOTE | 2017-02-17 15:45 | RADHPO ---
EXAM DATE/TIME: 02/17/2017 14:26 [facility] COMPARISON: No previous studies available for comparison. INDICATIONS : Abnormal ultrasound. Right sided neck mass. RADIATION DOSE: 15.37 CTDIvol (mGy) MEDICAL HISTORY : Cerebrovascular disease. Cardiovascular disease. Chronic obstructive pulmonary disease. Hypertension . Diabetes. Renal failure. SURGICAL HISTORY : CABG Coronary artery stent. ENCOUNTER: Initial ACUITY: 1 day PAIN SCORE: 0/10 LOCATION: Neck TECHNIQUE: Volumetric scanning of the neck was performed. Using automated exposure control and adjustment of th e mA and/or kV according to patient size, radiation dose was kept as low as reasonably achievable to obtain optimal diagnostic quality images. FINDINGS: There is increased soft tissue density seen at the level of the thyroid cartilage on the right side. There is associated destruction of the right side of the thyroid cartilage. The patient does have a prior study performed on 06/05/2016. The destruction of the thyroid cartilage appears to have progre ssed since that study. Also the asymmetry and mass like area seen currently is clearly larger on the current exam. It is difficult to clearly delineate the mass on the right however it appears to babita ure approximately 4.2 cm in AP dimension, 3.7 cm in transverse dimension. It is seen at the level of the hyoid and extending inferiorly at the level of the thyroid cartilage. It extends to the superio r aspect of the right lobe of the thyroid. There does appear to be some post radiation change with t hickening of the colonic structures bilaterally and posteriorly. These findings were present previou sly. There is displacement of the airway at the level of the larynx towards the left. There is hugo ration of the subcutaneous soft tissues being worse on the left. This could be a post radiation celis ge. The submandibular glands appear intact. The parotid glands appear intact. Significant adenopat hy is not clearly appreciated on this non-contrast CT examination. Calcifications are seen at the ca rotid bulb regions bilaterally. The sinuses appear grossly clear. The nasopharynx and oropharynx are grossly intact. There is some thickening of the epiglottis which is likely a post radiation change. This appearance is unchanged. There is some emphysematous change in the lung apices. The thyroid appears normal. CONCLUSION: 1. Mass like area now seen at the right larynx region which is clearly enlarged from a prior exam. This likely represents recurrent tumor given the change. There is further destruction of the right s tennille of the thyroid cartilage. There is displacement of the airway at the level of the larynx towards the left. The airway appears narrowed. ENT consultation would be recommended to directly inspect t his area and also evaluate any compromise to the airway. If further imaging is needed, a PET FDG sherin dy could be performed. Tomi Bush MD on February 17, 2017 at 14:52 Board Certified Radiologist. This report was verified electronically.
[2017-02-17 16:00] VITALS: BP 136/88; PULSE 84; RESP 20; TEMP 97; O2SAT 99
[2017-02-17] MEDS: WARFARIN SOD 4 MG TAB PO SCH (16:18)
--- NOTE | 2017-02-17 17:34 | HHI.PR ---
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 He could do a PET/CT outpatient vs laryngoscopy (just had one done 6 weeks or so ago at [facility]). sounds like carotid doppler is stable over the past year. will consult oncology who has seen him outpatient. Juliane Ruvalcaba MD Feb 17, 2017 17:34
[2017-02-17 20:00] VITALS: BP 139/83; PULSE 91; PULSE 96; RESP 18; TEMP 95.6; O2SAT 97
[2017-02-17] MEDS: DULoxetine HCl DR 30 MG CAP PO SCH (21:05)
[2017-02-18] VITALS (7 sets, daily range): BP systolic 140–178; BP diastolic 75–93; PULSE 78–98; RESP 18–20; TEMP 96–97.8; O2SAT 97–100
[2017-02-18] MEDS: CILOSTAZOL 50 MG TAB PO SCH ×2 (06:00→15:33)
--- NOTE | 2017-02-18 07:16 | HHI.FPPN ---
Subjective Remarks Feeling okay, denies pain. Initially denied seeing any other doctors yesterday but when asked about seeing the psychiatrist he states he sent him away--wasn't going to talk with him (there are no notes from psych). I advised I wanted him to see him due to his confusion and need to determine his ability to make decisions and get POA set up. Pt states that it is already set up. His daughter, Ledy, told me that they had worked on it all last year but then he refused to sign it. He states he is willing to do so now. He feels that he has a recurrant cancer and that something isn't right. He notes that he really wants to go to [place]. His other daughter, Azul, is there and works in oncology and could set him up with doctors to see. He hasn't discussed this with her. We discussed the potential for recurrance given the increased mass size on the right. need to speak with Dr Melchor today regarding potential for further treatment. Surgery wasn't really an option last year--he still has carotid disease and PVD although his renal function is better. We discussed nutrition recommendations. Nurse notes his states she has been giving him 8 cans of the splena per day with the last being about 3 am. Pt notes GERD last PM and gassiness that seemed to improve with a little sprite through the PEG tube and he slept though the night. No fevers. Objective Vitals Vital Signs Date Time Temp Pulse Resp B/P Pulse Ox O2 Delivery O2 Flow Rate FiO2 02/18/17 04:00 96.2 81 18 160/93 98 02/18/17 00:00 96.3 78 18 140/75 98 02/17/17 20:59 18 02/17/17 20:00 95.6 91 18 139/83 97 02/17/17 20:00 96 02/17/17 16:00 97.0 84 20 136/88 99 02/17/17 12:00 97.4 68 20 155/94 97 02/17/17 08:00 96.4 86 20 118/71 98 I/O 02/17/17 02/17/17 02/17/17 02/18/17 02/18/17 02/18/17 07:00 15:00 23:00 07:00 15:00 23:00 Intake Total 635 ml 674 ml 774 ml Balance 635 ml 674 ml 774 ml Intake Oral 0 ml 0 ml 0 ml IV Total 635 ml Tube Feeding 474 ml 574 ml Tube Irrigant 200 ml 200 ml # Voids 3 1 1 2 Result Diagram: 02/17/1760002/17/17600 Objective Remarks Gen: cachectic, elderly WM, no distress, calmer this AM and more oriented but still forgetful but able to repeat my statements a few minutes later CV: RRR, II/ murmur Lungs: no wheezing, no rhonchi, occasional coughing, moist Abd: soft, NT, PEG tube site clean, tolerated PEG tube feed by the nurse with 1 can without difficulty Ext: thin, minimally palpable pulses, no sores, old scars, fair cap refill skin: overall pale, no sores noted Neuro: MOving all extremities well, more oriented and calm today. able to have a decent conversation about his issues. Notes he is worried about voicing his opinion--afraid of what his might say Urinary Catheter: No Vascular Central Line Catheter: No A/P Problem List: (1) Orthostatic hypotension Status: Acute Plan: Treated with fluids on admission, renal function stable. Recheck orthostatics today. (2) Failure to thrive in adult Status: Chronic Plan: He has continued to lose weight despite tube feeding and attempts at PO intake. Appreciate nutrition consult. Refeeding syndrome isn't really an issue as although he hasn't been eating by mouth he has been getting tube feeds regularly. states she had been giving him 8 cans of the splena per day which would be more than the goal rate of 60ml/hr. Patient will not use the pump for feeding as he can't get up to the bathroom easily. He prefers the bolus feeds which he is tolerating. will increase to 7 cans per day which is then just over the 60ml/hr rate that is recommended by fisher, however if he was getting 8 cans per day plus some PO intake at home and still losing weight I'm not sure that will be adequate. Will discuss with nutrition today. Gave the thiamine and checking further labs. (3) Confusion Status: Acute Plan: intermittant. Suspect TIAs vs metabolic syndrome with the potential for recurrant cancer. He didn't have hypoxia this time like he has in the past ( aspiration can be an issue). 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 He needs to be back on the statin (reordered). (4) Laryngeal cancer Status: Acute Plan: last check he was okay at [facility] but since then has right neck mass and right sided head pain (his symptoms with the laryngeal CA last time). Scans from yesterday suggest the potential for recurrance. I discussed this with him today to some degree. He notes he is afraid of voicing his opinion as fears his 's response. She was not there this AM and I encouraged him to let me know his thoughts. He notes that he wants to go to [place] and consider treatment eval there. He doesn't want to go back to [facility]. It sounds like he wants to still consider treatment however didn't seem to be able to discuss details of what he would be willing to accept (ie surgery, chemo, radiation, trach, etc). Need to discuss potential for airway obstruction. I did discuss Hospice options but he doesn't seem interested in that. He notes he has a plane ticket already planed for February 26 and really wants to go. He wants to get home (which is [place] to him ). Will discuss with Dr. Melchor today. could potentially get him home locally, get a PET/CT in the interim and arrange for him to see someone in [place] (his daughter is a nurse in the oncology dept near his home). (5) Claudication of right lower extremity Status: Chronic Plan: He has been seeing Dr. Narayanan. considering treatement. Looks like he hasn' t been doing the statin. restarted now. (6) CAD (coronary artery disease) Status: Chronic Plan: He is s/p bypass. Not really symptomatic. Needs strict medical management. Still with PVD. REorganizing medication list for discharge and need to make sure he takes meds appropriately. Will try to get his family support to check. I haven't had success with getting home health to help with medications. (7) Acute on chronic kidney failure Status: Chronic Plan: h/p polycystic kidney disease. Not yet on dialysis. Has been under fair control (actually better than he had in the past) Problem Qualifiers (1) CAD (coronary artery disease): Qualified Code: I25.10 - Coronary artery disease involving oneida coronary artery of oneida heart without angina pectoris (2) Acute on chronic kidney failure: Qualified Code: N17.9 - Acute renal failure superimposed on stage 3 chronic kidney disease, unspecified acute renal failure type Juliane Briggs MD Feb 18, 2017 07:16
[2017-02-18] MEDS ORDERED: THIAMINE INJ 100 MG in SODIUM CHLORIDE 0.9% INJ 100 ML IV ONE (08:00)
[2017-02-18 08:49] LABS: MAGNESIUM 1.8 MG/DL (1.5-2.5)
[2017-02-18 08:50] LABS: INTERNATIONAL NORMALIZED RATIO 3.4 RATIO; PROTHROMBIN TIME - PATIENT 39.7 SEC (9.8-11.6)
[2017-02-18] MEDS: DOCUSATE SODIUM 50 MG/SENNA 8.6 MG TAB PO SCH ×2 (09:00→20:44)
--- NOTE | 2017-02-18 09:01 | PD.CONS ---
Provisional Diagnosis Admission Date Feb 17, 2017 at 07:22 [place] I. Delirium due to underlying medical condition, adjustment disorder with depressed mood [place] II. Deferred [place] III. Laryngeal cancer, orthostatic hypotension, failure to thrive [place] IV. Episodes of confusion [place] V. 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 Confusion: Suspect TIAs vs metabolic syndrome with the potential for recurrant cancer. Laryngeal cancer, as per discussion with radiologist patient might have a recurrent mass. Claudication of right lower extremity. CAD (coronary artery disease). Acute on chronic kidney failure. Patient has been showing episodes of confusion on and off, consulted to psychiatry to assess decision-making capacity to make medical decisions.On psychiatric evaluation today patient is found calm and cooperative at the beginning of the evaluation, but became irritable and oppositional at the end when he was faced with a cognitive test. Patient described his mood as "ok" he seems to be in a maladaptive denial of his medical condition, especially of his laryngeal cancer. Patient denies anhedonia, denies hopelessness, denies helplessness, denies suicidal and homicidal ideation, denies visual and auditory hallucinations. Patient is fully oriented 3 at the moment of this evaluation, with no attention deficit, no fluctuation of consciousness, no gross cognitive impairment present. However, patient declined to continue a deeper cognitive assessment. He says that he does have a ninth-grade education "I want to spell or do any math project here". His Mame Bryson, present during part of the interview, served as a collateral information. She is also his healthcare by proxy. She says that the patient was at baseline the last week, baseline meaning that functioning in the society, driving, taking care of his financials, taking care of his aging personally, involved in family care, and "doing all his normal stuff". She confirms the patient doesn't have any previous psychiatric history, she does not suspect any ongoing dementia. However she says that the patient has been having active visual hallucinations in the last week. He also has been having on and off episodes of confusion in which he doesn't know where he is "and his confused with the time and people around". She says that she have and not is anyone of these episodes in the last 24 hours. She clarifies the patient at this moment is able to take his medical decision, he has not been refusing treatment, he has not been refusing to follow medical recommendations as at this moment. In any case the patient was asked that in case that his confused or not able to take decisions who will be the person assigned to do this and said clearly: my . Review of Systems Constitutional: DENIES: Diaphoretic episodes, Fatigue, Fever, Weight gain, Weight loss, Chills, Dizziness, Change in appetite, Night Sweats Endocrine: DENIES: Heat/cold intolerance, Polydipsia, Polyuria, Polyphagia Eyes: DENIES: Blurred vision, Diplopia, Eye inflammation, Eye pain, Vision loss , Photosensitivity, Double Vision Ears, nose, mouth, throat: DENIES: Tinnitus, Hearing loss, Vertigo, Nasal discharge, Oral lesions, Throat pain, Hoarseness, Ear Pain, Running Nose, Epistaxis, Sinus Pain, Toothache, Odynophagia Cardiovascular: DENIES: Chest pain, Palpitations, Syncope, Dyspnea on Exertion , PND, Lower Extremity Edema, Orthopnea, Claudication Gastrointestinal: DENIES: Abdominal pain, Black stools, Bloody stools, Constipation, Diarrhea, Nausea, Vomiting, Difficulty Swallowing, Anorexia Genitourinary: DENIES: Sexual dysfunction, Urinary frequency, Urinary incontinence, Urgency, Hematuria, Dysuria, Nocturia, Penile Discharge, Testicular Pain, Testicular Swelling Musculoskeletal: DENIES: Joint pain, Muscle aches, Stiffness, Joint Swelling, Back pain, Neck pain Integumentary: DENIES: Abnormal pigmentation, Nail changes, Pruritus, Rash Hematologic/lymphatic: DENIES: Bruising, Lymphadenopathy Immunologic/allergic: DENIES: Eczema, Urticaria Neurologic: DENIES: Abnormal gait, Headache, Localized weakness, Paresthesias, Seizures, Speech Problems, Tremor, Poor Balance Past Family Social History Coded Allergies: HMG-CoA Reductase Inhibitors (Verified Allergy, Severe, 02/16/17) Niacin (Verified Allergy, Severe, 02/16/17) CAUSES HIM TO FEEL HOT Oily Fish (Verified Allergy, Intermediate, Diarrhea, 02/16/17) Active Scripts Feeding Supplies (Feeding Bottles/Standard)1 Mis Mis #10 Units Prov:Dakota Torres MD 12/10/16 Pantoprazole Liq (Protonix Liq)40 Mg Pkt40 Mg PO DAILY #30 PKT Ref 0 Prov:Juliane Briggs MD 09/28/16 Patiromer Sorbitex Calcium (Veltassa)8.4 Gm Pow8.4 Gm PO DAILY #1 GM Ref 0 Prov:Juliane Briggs MD 09/28/16 Sodium Bicarbonate 325 Mg Lck503 Mg PO Q12HR #1 TAB Ref 0 Prov:Juliane Briggs MD 09/28/16 Atorvastatin (Lipitor)40 Mg Tab40 Mg PO DAILY #1 TAB Ref 0 Prov:Juliane Briggs MD 09/28/[address] ([place] )30 Mg Capdr30 Mg PO HS #30 CAP Ref 0 02/16/17 Metoprolol Tartrate 25 Mg Tab12.5 Mg PO HS #60 TAB Ref 0 12/16/16 Metoprolol Tartrate 25 Mg Tab25 Mg PO DAILY #30 TAB Ref 0 12/16/16 Tiotropium Inh (Spiriva Handihaler)18 Mcg Cap18 Mcg INH DAILY #30 CAP Ref 0 1 capsule = 18 mcg 12/07/16 Loratadine (Claritin)10 Mg Tab10 Mg PO DAILY Ref 0 12/07/16 Calcitriol 0.25 Mcg Cap0.25 Mcg PO DAILY #30 CAP Ref 0 12/07/16 Hydrocodone-Acetaminophen ([place])10-325 Mg Tab1 Tab PO Q6H PRN (PAIN) Ref 0 12/07/16 Gabapentin 300 Mg Hqv727 Mg PO BID #60 CAP Ref 0 12/07/16 Fluticasone Nasal [place] (Flonase Nasal [place])50 Mcg/Act Spray50 Mcg EACH NARE DAILY #1 BOTTLE Ref 0 12/07/16 Albuterol 18 GM Inh (Ventolin Hfa 18 GM Inh)90 Mcg/Act Aer2 Puff INH Q4H PRN ( SHORTNESS OF BREATH) #1 INHALER Ref 0 12/07/16 Discontinued Reported Medications Duloxetine DR (Cymbalta DR)30 Mg Capdr30 Mg PO HS #30 CAP Ref 0 02/16/17 Citalopram 10 Mg Tab10 Mg PO DAILY #30 TAB Ref 0 12/07/16 Current Medications Medications (Trade) Dose Ordered Sig/Alea Route Start Time Stop Time Status Last Admin (Tylenol) 650 mg Q4H PRN PO 02/16/17 16:15 (Zofran Inj) 4 mg Q6H PRN IVP 02/16/17 16:15 (Narcan Inj) 0.4 mg UNSCH PRN IV 02/16/17 16:15 (Genoveva-Colace) 1 tab BID PO 02/16/17 21:00 02/17/17 21:05 (Milk Of Magnesia Liq) 30 ml Q12H PRN PO 02/16/17 16:15 (Senokot) 17.2 mg Q12H PRN PO 02/16/17 16:15 (Dulcolax Supp) 10 mg DAILY PRN RECTAL 02/16/17 16:15 (Lactulose Liq) 30 ml DAILY PRN PO 02/16/17 16:15 (Proair Hfa Inh) 2 puff Q4H PRN INH 02/16/17 18:45 (Rocaltrol) 0.25 mcg DAILY PO 02/17/17 09:00 02/17/17 10:24 (Cymbalta Dr) 30 mg HS PO 02/16/17 21:00 02/17/17 21:05 (Neurontin) 300 mg BID PO 02/16/17 21:00 02/17/17 21:05 ([place] 10-325 Mg) 1 tab Q6H PRN PO 02/16/17 18:45 02/17/17 19:52 (Claritin) 10 mg DAILY PO 02/17/17 09:00 02/17/17 10:24 (Lopressor) 12.5 mg HS PO 02/16/17 21:00 02/17/17 21:05 (Lopressor) 25 mg DAILY PO 02/17/17 09:00 02/17/17 10:24 (Sodium Bicarbonate) 325 mg Q12HR PO 02/16/17 21:00 02/17/17 21:04 (Spiriva Inh) 18 mcg DAILY INH 02/17/17 09:00 Patient Own Medication PT OWN MED: MAGI... DAILY PO 02/17/17 09:00 Hold Patient Own Medication PT OWN MED: PATIROMER (VELTAS... DAILY@1200 PO 02/17/17 12:00 Hold (Pletal) 50 mg BIDAC PO 02/17/17 07:00 02/18/17 06:00 (Plavix) 75 mg DAILY PO 02/17/17 09:00 02/17/17 10:24 (Heparin Inj) 5,000 units Q12HR SQ 02/16/17 21:00 02/17/17 21:06 (Pill Splitter) 1 ea UNSCH PRN OTHER 02/16/17 19:00 (Lipitor) 80 mg HS PO 02/17/17 21:00 UNV Warfarin Sodium 4 mg 4 mg DAILY@16 PO 02/17/17 16:00 02/17/17 16:18 (Thiamine Inj/NS Inj) 101 ml @ 101 mls/hr ONCE ONCE IV 02/18/17 08:00 02/18/17 08:59 Family History Patient denies psychiatric family history Social History Patient was born and raised in [place], he has been living in [place] with his for many years, 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, he has no biological kids, his highest level of education is ninth grade Physical Exam A physical examination no tremors, no psychomotor retardation or agitation, no stiffness, no EPS, present Vital Signs Vital Signs Date Time Temp Pulse Resp B/P Pulse Ox O2 Delivery O2 Flow Rate FiO2 02/18/17 08:00 97.6 93 18 177/89 100 I/O 02/17/17 02/17/17 02/17/17 07:59 15:59 23:59 Intake Total 635 ml 674 ml Balance 635 ml 674 ml Lab Results 02/17/2017 Mental Status Examination Appearance Elderly man, age appearing, good hygiene, [facility], at the beginning he was calm and cooperative, at the end of the interview resistant and oppositional Speech: Unremarkable Orientation: x3 Memory: Unremarkable Thought Process: Logical Thought Content: Unremarkable Language Fluent and spontaneous Fund of Knowledge Could not be assessed Hallucination Type: Visual Attention and Concentration: Good Suicidal Ideation: No Previous Suicide Attempts: No Homicidal Ideation: No Previous Homicide Attempts: No Judgment: Poor Affect: Irritable Mood: Angry Assessment & Plan Problem List: (1) Delirium due to another medical condition Assessment & Plan: On psychiatric evaluation today the patient at the beginning is calm, cooperative, pleasant. Patient is logical, coherent and relevant. During the evaluation no previous of confusion, attention deficit, fluctuation of consciousness or gross cognitive impairment are present. Patient is oriented 3, with conserve recent and immediate memory, executive function, abstract thinking. However, have to clarify the patient refuses to participate in a deeper cognitive assessment. Low level of education has to be taken into account when performing cognitive assessment. Patient seems to be in maladaptive denial of cancerous condition, however patient is able to verbalize the reason of his hospitalization, he has been following medical recommendations, patient is now refusing treatment, he seems to understand and appreciate fairly the nature of his medical conditions at the moment of this evaluation, I don't see a reason why the patient cannot have decision-making capacity to participate in medical decisions at this moment. He keeps his decision-making capacity. However, is important to clarify that due to episodic confusion most probably related with underlying medical conditions, this decision-making capacity can fluctuate, but in this case is clear that his is surrogated decision-maker appointed by the same patient at the moment of full capacity. Patient has been experiencing episodic insightless, frequent , anxiety provoking, vivid visual hallucinations with disorganized behavior and thought process. In my opinion this perceptual disturbances are secondary to delirium/metabolic encephalopathy, rather than to a primary major psychiatric condition. Patient might benefit of a low dose of antipsychotic, for example Seroquel 25 mg twice a day or Risperdal 0.5 mg twice a day to help with the sleep at night and visual hallucinations. Patient also can benefit of a palliative care consult for goals of care and also to determine legal status of healthcare by proxy. Consult appreciated. If you have any question contact me directly to my cellphone [phone]. ICD Code: F05 Assessment & Plan Estimated LOS: Coleman Dykes MD Feb 18, 2017 09:01
[2017-02-18] MEDS: TIOTROPIUM BROMIDE 18 MCG INH INH SCH (09:29)
[2017-02-18] MEDS: CLOPIDOGREL 75 MG TAB PO SCH (09:31)
[2017-02-18] MEDS: ACETAMINOPHEN/HYDROcodone 325 MG/10 MG TAB PO PRN ×2 (09:31→15:35)
[2017-02-18] MEDS: CALCITRIOL 0.25 MCG CAP PO SCH (09:32)
[2017-02-18] MEDS: HEPARIN SODIUM - SQ 10,000 UNITS/ML VIAL SQ SCH ×2 (09:32→20:45)
[2017-02-18] MEDS: SODIUM BICARBONATE 325 MG TAB PO SCH ×2 (09:32→20:45)
[2017-02-18] MEDS: METOPROLOL TARTRATE 25 MG TAB PO SCH ×2 (09:33→20:45)
[2017-02-18] MEDS: LORATADINE 10 MG TAB PO SCH (09:33)
[2017-02-18] MEDS: GABAPENTIN 300 MG CAP PO SCH ×2 (09:35→20:45)
[2017-02-18 12:15] LABS: LDL CHOLESTEROL 29 MG/DL (0-99)
[2017-02-18] MEDS: WARFARIN SOD 4 MG TAB PO SCH (15:33)
[2017-02-18 16:34] LABS: HEMOGLOBIN A1a 1.1 %; HEMOGLOBIN A1b 1.3 %; HEMOGLOBIN F 1.4 %; HEMOGLOBIN LA1C 3.2 %; HEMOGLOBIN P3 6.6 %
--- NOTE | 2017-02-18 19:23 | HHI.PR ---
Addendum to Inpatient Note Addendum Reason: Additional Documentation Additional Information I spoke with Dr. Melchor, his oncologist, today who reviewed his CT scan and is likely concerned about recurrent tumor. He recommended ENT eval to scope and see the extent of airway compromise. Clinically, he has no airway compromise at this time but is having more dysphagia and unsafe to swallow any consistency. I spoke with Dr. Castillo in ENT regarding his dx, prior treatment and pts desire to go to the [facility]. He is currently on plavix, pletal and coumadin for PVD/cardiovascular issues. If we can get him in quickly with the [facility], will let them do all the evaluation there and the sooner the better. I have called to his daughter, Azul, who is an RN in an oncology program either in or near the [facility] to see if we can get him scheduled and to make sure there is family support there to handle the situation. I have left her a message and hope to speak with her tonight. I will try to see if we could possibly arrange him an [employer] if he will qualify rather than standard airline transport due to his frailty. I spoke with Dr. Jones who was contribution solicitor for Dr. Melchor and she notes Dr. Melchor will see him in the AM since he already has a relationship with him. I also spoke with psychiatrist today who felt he was able to make his decisions at this time, but if he develops recurrant delusions/hallucinations could consider respirdol 1mg at bedtime. I will hold off for now as he is improving and I think his prior issue was medication dosing at home. Nurse notes he is tolerating his tube feedings very well today. Juliane Velez MD Feb 18, 2017 19:23
[2017-02-18] MEDS: DULoxetine HCl DR 30 MG CAP PO SCH (20:44)
[2017-02-18] MEDS ORDERED: ATORVASTATIN 40 MG TAB PO SCH (21:00)
[2017-02-19] VITALS: BP 158/87; PULSE 79; RESP 20; TEMP 98.4; O2SAT 98
[2017-02-19 04:00] VITALS: BP 161/92; PULSE 95; RESP 20; TEMP 96; O2SAT 98
--- NOTE | 2017-02-19 07:02 | HHI.FPPN ---
Subjective Remarks FEels okay, wants to go home. Denies CP, SOB. Tolerating tube feeds. no GERD this AM. Denies abdominal pain. Nurse called with 5 beat run of Vtach x 2 this AM. Pt was asymptomatic. Was awake and alert. No chest pain or dizziness. He was sitting up in bed at the time. Objective Vitals Vital Signs Date Time Temp Pulse Resp B/P Pulse Ox O2 Delivery O2 Flow Rate FiO2 02/19/17 04:00 96.0 95 20 161/92 98 02/19/17 00:00 98.4 79 20 158/87 98 02/18/17 20:00 96.0 93 20 178/91 98 02/18/17 20:00 98 02/18/17 16:00 97.8 87 19 156/82 97 02/18/17 12:00 97.7 87 18 152/79 99 02/18/17 09:30 88 02/18/17 08:00 97.6 93 18 177/89 100 I/O 02/18/17 02/18/17 02/18/17 02/19/17 02/19/17 02/19/17 07:00 15:00 23:00 07:00 15:00 23:00 Intake Total 774 ml 380 ml 0 ml Balance 774 ml 380 ml 0 ml Intake Oral 0 ml 120 ml 0 ml Tube Feeding 574 ml Tube Irrigant 200 ml 260 ml # Voids 2 1 2 # Bowel Movements 1 0 Result Diagram: 02/17/17 0601 02/17/17 0601 Objective Remarks Gen: cachectic, elderly WM, no distress, more gravelly/hoarse voice this AM, sitting up on the side of the bed, notes he hasn't talked with his family about his desires for evaluation (yet I'm pretty sure his daughter was talking with him about it yesterday). He was frustrated his family didn't come in this AM yet I was there at 6:40 so advised it was early. CV: RRR, II/ murmur, no irregularity--tele with 2 5 beat runs of VTach, rest sinus rhythm, occ sinus tach in the low 100s. Lungs: no wheezing, no rhonchi, occasional coughing, moist Abd: soft, NT, PEG tube site clean, Ext: thin, minimally palpable pulses, no sores, old scars, fair cap refill skin: overall pale, no sores noted Neuro: MOving all extremities well, more oriented and calm today. able to have a decent conversation about his issues. Was able to walk to the bathroom holding onto the side of the walker without assistance (needed correction to use the walker correctly). Short term memory still seems impaired but no sign of hallucinations this AM. Urinary Catheter: No Vascular Central Line Catheter: No A/P Problem List: (1) Ventricular tachycardia Status: Acute Plan: He had 2 episodes of 5 beat runs this AM. Not symptomatic. I will run this by Dr. Narayanan. His BP has been a little elevated, however he tends to be so in the hospital and really wants to go home. I need to make sure that he gets his meds correctly at home. I just increased his metoprolol to 25mg BID last PM (was getting just 12.5mg at night). His BP at home tends to be much lower. He was also supposedly on lisinopril 5mg at home previously, however I'm not sure if he was taking it. Due to renal issues, I am holding it for now (he was having hyperkalemia). He was also on Veltassa to lower the potassium from his survey field technician, however that isn't available in the hospital and his K has been okay. Recheck this AM. Mg and Phos wnl yesterday. (2) Orthostatic hypotension Status: Acute Plan: Treated with fluids on admission, renal function stable. Stands and walks without difficulty or dizziness. (3) Failure to thrive in adult Status: Chronic Plan: He has continued to lose weight despite tube feeding and attempts at PO intake. Appreciate nutrition consult. Refeeding syndrome isn't really an issue as although he hasn't been eating by mouth he has been getting tube feeds regularly. states she had been giving him 8 cans of the splena per day which would be more than the goal rate of 60ml/hr. Patient will not use the pump for feeding as he can't get up to the bathroom easily. He prefers the bolus feeds which he is tolerating. will increase to 7 cans per day which is then just over the 60ml/hr rate that is recommended by job placement counselor, however if he was getting 8 cans per day plus some PO intake at home (not sure exactly what he has been getting though) and still losing weight I'm not sure that will be adequate. Will discuss with nutrition today. Gave the thiamine and checking further labs (mag and phos wnl). (4) Confusion Status: Acute Plan: intermittant. Suspect TIAs vs metabolic syndrome with the potential for recurrant cancer. He didn't have hypoxia this time like he has in the past ( aspiration can be an issue). 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 He needs to be back on the statin (reordered). (5) Laryngeal cancer Status: Acute Plan: last check he was okay at [facility] but since then has right neck mass and right sided head pain (his symptoms with the laryngeal CA last time). Scans suggest the potential for recurrence. I discussed this with him today to some degree. He notes he is afraid of voicing his opinion as fears his 's response. She was not there this AM and I encouraged him to let me know his thoughts. He notes that he wants to go to [place] and consider treatment eval there. He doesn't want to go back to [facility]. It sounds like he wants to still consider treatment however didn't seem to be able to discuss details of what he would be willing to accept (ie surgery, chemo, radiation, trach, etc). Need to discuss potential for airway obstruction. I did discuss Hospice options but he doesn't seem interested in that. He noted yesterday he has a plane ticket already planed for February 26 and really wants to go. I checked into [facility] for him but the cost is prohibitive. He wants to get home (which is [place] to him). I discussed with Dr. Melchor yesterday and also with Dr. Castillo (ENT) locally who recommended he get to the site for treatment eval and do the scope there. This AM 02/19/17 patient states that he no longer wants to go to [place] but just go to [facility] so that he can get an answer and start treatment [place]. Notes he doesn't want to . Wants to be able to get in the car and drive. I have asked his family to discuss with him further. I advised patient and his family that I will arrange either scenario ([facility] or [facility]) [facility] for him as soon as they all make a final decision as to where he wants to go. (6) Claudication of right lower extremity Status: Chronic Plan: He has been seeing Dr. Narayanan. considering treatement. Looks like he hasn' t been doing the statin. restarted now. (7) CAD (coronary artery disease) Status: Chronic Plan: He is s/p bypass. Not really symptomatic. Needs strict medical management. Still with PVD. REorganizing medication list for discharge and need to make sure he takes meds appropriately. Will try to get his family support to check. I haven't had success with getting home health to help with medications. (8) Acute on chronic kidney failure Status: Chronic Plan: h/p polycystic kidney disease. Not yet on dialysis. Has been under fair control (actually better than he had in the past) Problem Qualifiers (1) CAD (coronary artery disease): Qualified Code: I25.10 - Coronary artery disease involving [place] coronary artery of [place] heart without angina pectoris (2) Acute on chronic kidney failure: Qualified Code: N17.9 - Acute renal failure superimposed on stage 3 chronic kidney disease, unspecified acute renal failure type Juliane Briggs MD Feb 19, 2017 07:01
[2017-02-19] MEDS: CILOSTAZOL 50 MG TAB PO SCH ×2 (07:38→17:06)
[2017-02-19 08:00] VITALS: BP 150/93; PULSE 79; PULSE 90; RESP 18; TEMP 97.9; O2SAT 95
[2017-02-19 08:56] LABS: POTASSIUM 4.3 MEQ/L (3.5-5.1)
[2017-02-19 08:59] LABS: BICARBONATE 26.2 MEQ/L (21.0-32.0)
[2017-02-19] MEDS: CLOPIDOGREL 75 MG TAB PO SCH (09:58)
[2017-02-19] MEDS: GABAPENTIN 300 MG CAP PO SCH (09:58)
[2017-02-19] MEDS: CALCITRIOL 0.25 MCG CAP PO SCH (09:58)
[2017-02-19] MEDS: METOPROLOL TARTRATE 25 MG TAB PO SCH (09:58)
[2017-02-19] MEDS: SODIUM BICARBONATE 325 MG TAB PO SCH (09:59)
[2017-02-19] MEDS: LORATADINE 10 MG TAB PO SCH (09:59)
[2017-02-19] MEDS: DOCUSATE SODIUM 50 MG/SENNA 8.6 MG TAB PO SCH (10:12)
[2017-02-19] MEDS: HEPARIN SODIUM - SQ 10,000 UNITS/ML VIAL SQ SCH (10:13)
[2017-02-19] MEDS: ACETAMINOPHEN/HYDROcodone 325 MG/10 MG TAB PO PRN ×2 (10:39→17:01)
[2017-02-19 12:00] VITALS: BP 142/90; PULSE 88; RESP 19; TEMP 97.7; O2SAT 98
--- NOTE | 2017-02-19 12:28 | HHI.PR ---
Addendum to Inpatient Note Addendum Reason: Additional Documentation Additional Information I spoke with Dr. Narayanan regarding the Vtach. He isn't a great candidate for cardiac cath so he wouldn't stress test him. Recommended continued medical management and increasing the metoprolol if he can tolerate it. I have called and spoken with Dr. Marie at [facility] and he notes that he will expidite an appointment with Dr. Alex ENT surgeon who had seen him previously. We can likely discharge him to home today and get him to [facility]. Dr. Melchor was supposed to see him today prior to discharge. Need to make sure that his medications are fully explained and understood by his family. Juliane Ruvalcaba MD Feb 19, 2017 12:28
[2017-02-19] MEDS ORDERED: PLAV75TA29 PO (12:35)
[2017-02-19] MEDS ORDERED: ATOR40TA16 PO (12:35)
[2017-02-19] MEDS ORDERED: CILO50TA PO (12:35)
[2017-02-19] MEDS ORDERED: METO25TA3 PO (12:35)
[2017-02-19] MEDS ORDERED: COUM2TAB PO (12:35)
--- NOTE | 2017-02-19 12:44 | HHI.DS ---
Discharge Summary Admission Date Feb 17, 2017 at 07:22 Admitting Diagnosis DEHYDRATION, ORTHOSTATIC HYPOTENSION (1) Confusion Diagnosis: Principal Plan: intermittant. Suspect TIAs vs metabolic syndrome with the potential for recurrant cancer. He didn't have hypoxia this time like he has in the past ( aspiration can be an issue). 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 He needs to be back on the statin (reordered). (2) Ventricular tachycardia Diagnosis: Secondary Plan: He had 2 episodes of 5 beat runs this AM. Not symptomatic. I will run this by Dr. Narayanan. His BP has been a little elevated, however he tends to be so in the hospital and really wants to go home. I need to make sure that he gets his meds correctly at home. I just increased his metoprolol to 25mg BID last PM (was getting just 12.5mg at night). His BP at home tends to be much lower. He was also supposedly on lisinopril 5mg at home previously, however I'm not sure if he was taking it. Due to renal issues, I am holding it for now (he was having hyperkalemia). He was also on Veltassa to lower the potassium from his fill plant operator, however that isn't available in the hospital and his K has been okay. Recheck this AM. Mg and Phos wnl yesterday (all normal). I spoke with Dr. Narayanan. He isn't a good candidate for cath so will not do stress testing. Will try to control with meds by increasing the metoprolol as long as his BP tolerates. consider EP eval if recurrant or symptomatic. (3) Orthostatic hypotension Diagnosis: Secondary Plan: Treated with fluids on admission, renal function stable. Stands and walks without difficulty or dizziness. (4) Failure to thrive in adult Diagnosis: Principal Plan: He has continued to lose weight despite tube feeding and attempts at PO intake. Appreciate nutrition consult. Refeeding syndrome isn't really an issue as although he hasn't been eating by mouth he has been getting tube feeds regularly. states she had been giving him 8 cans of the splena per day which would be more than the goal rate of 60ml/hr. Patient will not use the pump for feeding as he can't get up to the bathroom easily. He prefers the bolus feeds which he is tolerating. will increase to 7 cans per day which is then just over the 60ml/hr rate that is recommended by grouter helper, however if he was getting 8 cans per day plus some PO intake at home (not sure exactly what he has been getting though) and still losing weight I'm not sure that will be adequate. Will discuss with nutrition today. Gave the thiamine and checking further labs (mag and phos wnl). (5) Laryngeal cancer Plan: last check he was okay at [facility] but since then has right neck mass and right sided head pain (his symptoms with the laryngeal CA last time). Scans suggest the potential for recurrence. I discussed this with him today to some degree. He notes he is afraid of voicing his opinion as fears his 's response. She was not there this AM and I encouraged him to let me know his thoughts. He notes that he wants to go to [place] and consider treatment eval there. He doesn't want to go back to [facility]. It sounds like he wants to still consider treatment however didn't seem to be able to discuss details of what he would be willing to accept (ie surgery, chemo, radiation, trach, etc). Need to discuss potential for airway obstruction. I did discuss Hospice options but he doesn't seem interested in that. He noted yesterday he has a plane ticket already planed for February 26 and really wants to go. I checked into [employer] for him but the cost is prohibitive. He wants to get home (which is [place] to him). I discussed with Dr. Melchor yesterday and also with Dr. Castillo (ENT) locally who recommended he get to the site for treatment eval and do the scope there. This AM 02/19/17 patient states that he no longer wants to go to [place] but just go to [facility] so that he can get an answer and start treatment [place]. Notes he doesn't want to . Wants to be able to get in the car and drive. I have asked his family to discuss with him further. I advised patient and his family that I will arrange either scenario ([facility] or [facility]) [place] for him as soon as they all make a final decision as to where he wants to go. Pt and family decided to proceed with [facility]. will discharge to home and get him in with Dr. Alex (ENT at [facility]) [place]. Dr. Marie will expedite this. (6) Claudication of right lower extremity Plan: He has been seeing Dr. Narayanan. considering treatement. Looks like he hasn' t been doing the statin. restarted now. (7) CAD (coronary artery disease) Plan: He is s/p bypass. Not really symptomatic. Needs strict medical management. Still with PVD. REorganizing medication list for discharge and need to make sure he takes meds appropriately. Will try to get his family support to check. I haven't had success with getting home health to help with medications. (8) Acute on chronic kidney failure Plan: h/p polycystic kidney disease. Not yet on dialysis. Has been under fair control (actually better than he had in the past) Consultants Dr. Melchor, oncology Psychiatry Brief History 66 yo chronically ill WM with h/o laryngeal CA came to the hospital with acute confusion, hallucinating, weakness, gait instability. CBC/BMP: 02/17/17 0601 02/19/17 0810 Significant Findings Laboratory Tests Test 02/16/17 02/16/17 02/16/17 02/17/17 15:10 18:00 21:00 03:08 White Blood Count 11.1 TH/MM3 (4.0-11.0) Hemoglobin 12.0 GM/DL (13.0-17.0) Hematocrit 36.6 % (39.0-51.0) Mean Corpuscular Volume 75.6 FL (80.0-100.0) Mean Corpuscular Hemoglobin 24.8 PG (27.0-34.0) Neutrophils (%) (Auto) 84.5 % (16.0-70.0) Lymphocytes (%) (Auto) 7.3 % (9.0-44.0) Neutrophils # (Auto) 9.3 TH/MM3 (1.8-7.7) Lymphocytes # (Auto) 0.8 TH/MM3 (1.0-4.8) Tear Drop Cells 1+ (NORMAL) Ovalocytes 1+ (NORMAL) Prothrombin Time 32.6 SEC (9.8-11.6) Activated Partial 55.2 SEC Thromboplast Time (24.3-30.1) Blood Urea Nitrogen 34 MG/DL (7-18) Creatinine 1.70 MG/DL (0.60-1.30) Estimat Glomerular Filtration 40 ML/MIN (>89) Rate Random Glucose 131 MG/DL (74-106) Aspartate Amino Transf 48 U/L (15-37) (AST/SGOT) Alkaline Phosphatase 181 U/L (45-117) Total Creatine Kinase 22 U/L (39-308) 20 U/L (39-308) 25 U/L (39-308) Troponin I LESS THAN 0.02 LESS THAN 0.02 LESS THAN 0.02 NG/ML NG/ML NG/ML (0.02-0.05) (0.02-0.05) (0.02-0.05) Albumin 2.4 GM/DL (3.4-5.0) Urine RBC 4-9 /hpf (0-3) Test 02/17/17 02/18/17 02/19/17 06:01 08:05 08:10 Hemoglobin 12.2 GM/DL (13.0-17.0) Hematocrit 37.2 % (39.0-51.0) Mean Corpuscular Volume 75.3 FL (80.0-100.0) Mean Corpuscular Hemoglobin 24.7 PG (27.0-34.0) Neutrophils (%) (Auto) 80.7 % (16.0-70.0) Blood Urea Nitrogen 32 MG/DL (7-18) 27 MG/DL (7-18) Creatinine 1.70 MG/DL 1.50 MG/DL (0.60-1.30) (0.60-1.30) Estimat Glomerular Filtration 40 ML/MIN (>89) 47 ML/MIN (>89) Rate Random Glucose 111 MG/DL 161 MG/DL (74-106) (74-106) Prothrombin Time 39.7 SEC (9.8-11.6) Hemoglobin A1c 7.5 % (4.3-6.0) Triglycerides Level 181 MG/DL (42-150) Cholesterol Level 80 MG/DL (120-200) HDL Cholesterol 15.0 MG/DL (40.0-60.0) Sodium Level 134 MEQ/L (136-145) PE at Discharge Gen: cachectic, elderly WM, no distress, more gravelly/hoarse voice this AM, sitting up on the side of the bed, notes he hasn't talked with his family about his desires for evaluation (yet I'm pretty sure his daughter was talking with him about it yesterday). He was frustrated his family didn't come in this AM yet I was there at 6:40 so advised it was early. CV: RRR, II/ murmur, no irregularity--tele with 2 5 beat runs of VTach, rest sinus rhythm, occ sinus tach in the low 100s. Lungs: no wheezing, no rhonchi, occasional coughing, moist Abd: soft, NT, PEG tube site clean, Ext: thin, minimally palpable pulses, no sores, old scars, fair cap refill skin: overall pale, no sores noted Neuro: MOving all extremities well, more oriented and calm today. able to have a decent conversation about his issues. Was able to walk to the bathroom holding onto the side of the walker without assistance (needed correction to use the walker correctly). Short term memory still seems impaired but no sign of hallucinations this AM. Hospital Course Pt improved after IVF and reconsilliation of meds. I believe his meds were not right at home. He had also been on remeron at home which could have contributed to his confusion and fatigue. Now doing better. He had one episode of VTach but remainder of hospital stay unremarkable and he clinically improved. Found, however, that he likely has a recurrance of laryngeal CA and arranging appt at [facility]. Medication clarification arranged. Pt Condition on Discharge: Fair Discharge Disposition: Discharge Home Discharge Instructions DIET: Follow Instructions for: Nothing By Mouth Additional Diet Instructions: Only tube feeding--8 cans of Splena daily (none during the night--last can at least 1 hour prior to bedtime). Keep head elevated when doing tube feeds (do not be laying flat) Activities you can perform: Regular-No Restrictions Activities to Avoid: Driving Other Activity Instructions: Use walker or cane for stability Juliane Briggs MD Feb 19, 2017 12:44
[2017-02-19] MEDS ORDERED: WARFARIN SOD 2 MG TAB PO SCH (16:00)
[2017-02-19] MEDS: TIOTROPIUM BROMIDE 18 MCG INH INH SCH (17:07)
[2017-02-19] MEDS ORDERED: METOPROLOL TARTRATE 25 MG TAB PO SCH (21:00)
--- NOTE | 2017-02-21 16:02 | RADRPT ---
EXAM DATE/TIME: 02/17/2017 08:40 [facility] COMPARISON: No previous studies available for comparison. INDICATIONS : Transient ischemic attack. MEDICAL HISTORY : Myocardial infarction. Hypercholesterolemia. Chronic obstructive pulmonary disease. CVA. Peripheral n europathy. CHF. CAD. Peripheral vascular disease. Anticoagulant therapy. Hypertension. GERD. Polycys tic kidney disease. Renal failure. Fibromyalgia. Restless legs syndrome. Arthritis. Gout. Diabetes. D epression. SURGICAL HISTORY : Tonsillectomy. Cholecystectomy. Oral surgery. CABG. Cardiac catheterization. Coronary stent. CABG. Left shoulder surgery. ENCOUNTER: Initial ACUITY: 1 day PAIN SCORE: 3/10 LOCATION: Bilateral neck PEAK SYSTOLIC VELOCITIES (cm/sec): ICA/CCA RATIO: Right: 0.2 Left: 1.0 ICA: Right: 11.7 Left: 100.3 CCA: Right: 64.5 Left: 104.3 ECA: Right: 162.3 Left: 92.4 VERTEBRAL: Right: 62.8 antegrade Left: 34.0 antegrade Elevated flow velocities and ICA/CCA ratios have been found to correlate with increased degrees of vessel stenosis, calculated as percentage of diameter relative to a normal segment of distal ICA/CCA FINDINGS: RIGHT CAROTID: There is very minimal flow within the right internal carotid. The study would suggest near complete o cclusion of the right internal carotid at its origin. LEFT CAROTID: There is moderate atherosclerotic plaquing at the bifurcation. The waveform is within normal limits. VERTEBRAL ARTERIES: Antegrade flow is seen in both vertebral arteries. MISCELLANEOUS: None. CONCLUSION: 1. There is very minimal flow identified in the right internal carotid. Study would suggest near comp lete occlusion. CT angiography is warranted for further assessment. 2. Heavily calcified atherosclerotic plaque at the bifurcation on the left. No hemodynamically signif icant stenosis identified on the left. Dion Coto MD on February 17, 2017 at 10:07 Board Certified Radiologist. This report was verified electronically.
== END 2017-02-19 18:17 | disposition home or self-care (01) | DRG 683 ==
LOC: PHED 14:32 → PHEDA 16:06 → PH3B 17:16 → OBSVTOIN 02-17 07:22
PROVIDERS: ADMIT Family Medicine; ATTEND Family Medicine
DX: N17.9 Acute kidney failure, unspecified (principal); I47.2 Ventricular tachycardia; R64 Cachexia; F05 Delirium due to known physiological condition; I50.9 Heart failure, unspecified; I13.0 Hypertensive heart and chronic kidney disease with heart failure and stage 1 through stage 4 chronic kidney disease, or unspecified chronic kidney disease; R13.10 Dysphagia, unspecified; Q61.3 Polycystic kidney, unspecified; T82.858A Stenosis of other vascular prosthetic devices, implants and grafts, initial encounter; E86.0 Dehydration; N18.4 Chronic kidney disease, stage 4 (severe); I65.23 Occlusion and stenosis of bilateral carotid arteries; R44.1 Visual hallucinations; E11.22 Type 2 diabetes mellitus with diabetic chronic kidney disease; J44.9 Chronic obstructive pulmonary disease, unspecified; I95.1 Orthostatic hypotension; Y92.009 Unspecified place in unspecified non-institutional (private) residence as the place of occurrence of the external cause; T43.025A Adverse effect of tetracyclic antidepressants, initial encounter; M19.90 Unspecified osteoarthritis, unspecified site; F41.9 Anxiety disorder, unspecified; I25.10 Atherosclerotic heart disease of native coronary artery without angina pectoris; K21.9 Gastro-esophageal reflux disease without esophagitis; Z85.818 Personal history of malignant neoplasm of other sites of lip, oral cavity, and pharynx; I25.2 Old myocardial infarction; E78.00 Pure hypercholesterolemia, unspecified; E11.51 Type 2 diabetes mellitus with diabetic peripheral angiopathy without gangrene; E78.5 Hyperlipidemia, unspecified; Z86.73 Personal history of transient ischemic attack (TIA), and cerebral infarction without residual deficits; Z93.1 Gastrostomy status; Z87.891 Personal history of nicotine dependence; Z92.3 Personal history of irradiation; Z87.442 Personal history of urinary calculi; T82.858D Stenosis of other vascular prosthetic devices, implants and grafts, subsequent encounter; T82.856D Stenosis of peripheral vascular stent, subsequent encounter; Y71.2 Prosthetic and other implants, materials and accessory cardiovascular devices associated with adverse incidents; F43.21 Adjustment disorder with depressed mood; R62.7 Adult failure to thrive; I70.8 Atherosclerosis of other arteries; C32.9 Malignant neoplasm of larynx, unspecified; Z90.49 Acquired absence of other specified parts of digestive tract
CPT/HCPCS: 70450; 70490; 71010; 76536; 80048; 80053; 80061; 81001; 82550; 83036; 83735; 84100; 84443; 84484; 85025; 85610; 85730; 93005; 93880; G0378; G8987-GP; G8988-GP; G8996-GN; G8997-GN; G8998-GN; J1644; J3411; J7030

== ENCOUNTER 2017-02-22 17:16 | Inpatient (IN) | payer MEDICARE, MEDICAID ==
[~2017-02-22] VITALS: Ht 185.4 cm; Wt 76.0 kg
[~2017-02-22 17:16] MED LIST changes: +ATOR40TA16 PO; +CILO50TA PO; -CITA10TA4 PO; +COUM2TAB PO; +CYMB30CA PO; -LIPI40TA PO; +PLAV75TA29 PO
[2017-02-22 17:18] VITALS: BP 121/59; PULSE 74; RESP 17; TEMP 97.9; O2SAT 96
[2017-02-22] MEDS ORDERED: CLAR10TA7 PO (18:17)
[2017-02-22] MEDS ORDERED: PROT40TA PO (18:17)
--- NOTE | 2017-02-22 18:42 | PD ---
HPI Chief Complaint: Bleeding Time Seen by Provider: 18:35 Travel History International Travel<30 days: No Contact w/Intl Traveler<30days: No Traveled to known affect area: No History of Present Illness HPI 66yo M with PMH of CAD, laryngeal cancer presents to the ED with c/o hemoptysis yesterday. States it is blood clot. Pt was just discharged 2 days ago and has not followed up with [facility]. Pt had recurrent right neck mass and oncologist is Dr. Melchor. Dr. Briggs is his PMD. States has not cough up blood since yesterday. Hemodynamically stable. Denies any fever, chest pain, sob, n/v, abdominal pain, focal weakness or numbness. PFSH Past Medical History Hx Anticoagulant Therapy: Yes (plavix/coumadin) Arthritis: Yes Anxiety: Yes Depression: Yes 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) Cardiac Catheterization: Yes Cardiovascular Problems: Yes (chf) High Cholesterol: Yes Chemotherapy: Yes (laryngeal) Congestive Heart Failure: Yes COPD: Yes Cerebrovascular Accident: Yes Coronary Artery Disease: Yes Diabetes: Yes Patient Takes Glucophage: No Diminished Hearing: No Endocrine: Yes Gastrointestinal Disorders: Yes GERD: Yes Genitourinary: Yes (POLYCYSTIC KIDNEY DISEASE) Hypertension: Yes Immune Disorder: No Implanted Vascular Access Dvce: No Kidney Stones: Yes Musculoskeletal: Yes Neurologic: Yes Psychiatric: No Reproductive: No Respiratory: Yes (copd) Immunizations Current: Yes Myocardial Infarction: Yes Radiation Therapy: No Renal Failure: Yes Past Surgical History Abdominal Surgery: Yes (GALLBALADDER REMOVAL) Arteriovenous Shunt: No Cardiac Surgery: Yes (VASCULAR LEGS) Cholecystectomy: Yes Coronary Artery Bypass Graft: Yes Coronary Stent: Yes Ear Surgery: No Endocrine Surgery: No Eye Surgery: No Genitourinary Surgery: No Gynecologic Surgery: No Insulin Pump: No Joint Replacement: Yes (SCREWS IN LEFT SHOULDER) Oral Surgery: Yes (THROAT DIALATION) Thoracic Surgery: Yes (CABG) Tonsillectomy: Yes Other Surgery: Yes Family History Family Myocardial Infarction: Yes Social History Alcohol Use: No Tobacco Use: No (QUIT 2008) Substance Use: No Allergies-Medications (Allergen,Severity, Reaction): Coded Allergies: HMG-CoA Reductase Inhibitors (Verified Allergy, Severe, 02/22/17) Niacin (Verified Allergy, Severe, 02/22/17) CAUSES HIM TO FEEL HOT Oily Fish (Verified Allergy, Intermediate, Diarrhea, 02/22/17) Reported Meds & Prescriptions Reported Meds & Active Scripts Active Coumadin (Warfarin) 2 Mg Tab 2 Mg PO DAILY@16 Plavix (Clopidogrel Bisulfate) 75 Mg Tab 75 Mg PO DAILY Cilostazol 50 Mg Tab 50 Mg PO BIDAC Veltassa (Patiromer Sorbitex Calcium) 8.4 Gm Pow 8.4 Gm PO DAILY Sodium Bicarbonate 325 Mg Tab 325 Mg PO Q12HR Reported Protonix (Pantoprazole Sodium) 40 Mg Tab 40 Mg PO DAILY Claritin (Loratadine) 10 Mg Tablet 10 Mg PO DAILY Cymbalta DR (Duloxetine HCl) 30 Mg Capdr 30 Mg PO HS Spiriva Handihaler (Tiotropium Inh) 18 Mcg Cap 18 Mcg INH DAILY 1 capsule = 18 mcg Calcitriol 0.25 Mcg Cap 0.25 Mcg PO DAILY Blomkest (Hydrocodone-Acetaminophen) 10-325 Mg Tab 1 Tab PO Q6H PRN Gabapentin 300 Mg Cap 300 Mg PO BID Flonase Nasal [place] (Fluticasone Nasal [place]) 50 Mcg/Act [place] 1 Spr EACH NARE DAILY Ventolin Hfa 18 GM Inh (Albuterol Sulfate) 90 Mcg/Act Aer 2 Puff INH Q4H PRN Review of Systems Except as stated in HPI: all other systems reviewed are Neg Physical Exam Narrative GENERAL: 66yo M not in distress. SKIN: Focused skin assessment warm/dry. Pale. HEAD: Atraumatic. Normocephalic. EYES: Pupils equal and round. No scleral icterus. No injection or drainage. ENT: +Dried blood in posterior pharynx. Patent airway. No blood in bilateral nose. NECK: Trachea midline. No JVD. CARDIOVASCULAR: Regular rate and rhythm. No murmur appreciated. RESPIRATORY: No accessory muscle use. Clear to auscultation. Breath sounds equal bilaterally. GASTROINTESTINAL: Abdomen soft, non-tender, nondistended. MUSCULOSKELETAL: No obvious deformities. No clubbing. No cyanosis. No edema. NEUROLOGICAL: Awake and alert. No obvious cranial nerve deficits. Motor grossly within normal limits. Normal speech. PSYCHIATRIC: Appropriate mood and affect; insight and judgment normal. Data Data Last Documented VS Vital Signs Date Time Temp Pulse Resp B/P Pulse Ox O2 Delivery O2 Flow Rate FiO2 02/22/17 21:26 89 16 153/76 97 Room Air 02/22/17 17:18 97.9 Orders Complete Blood Count With Diff (6/24/17 18:35) Basic Metabolic Panel (Bmp) (02/22/17 18:35) Prothrombin Time / Inr (Pt) (02/22/17 18:35) Act Partial Throm Time (Ptt) (02/22/17 18:35) Type And Screen (02/22/17 18:35) Chest, Single Ap (02/22/17 ) Blood Culture (02/22/17 20:29) Lactic Acid (02/22/17 20:29) Consult Ent (02/22/17 ) (Hub Use Only)Inp Phy Cons/Ref (02/22/17 ) Labs Laboratory Tests Test 02/22/17 18:47 White Blood Count 17.2 TH/MM3 Red Blood Count 4.17 MIL/MM3 Hemoglobin 10.3 GM/DL Hematocrit 31.6 % Mean Corpuscular Volume 75.8 FL Mean Corpuscular Hemoglobin 24.8 PG Mean Corpuscular Hemoglobin 32.7 % Concent Red Cell Distribution Width 16.3 % Platelet Count 281 TH/MM3 Mean Platelet Volume 10.0 FL Neutrophils (%) (Auto) 89.7 % Lymphocytes (%) (Auto) 4.3 % Monocytes (%) (Auto) 5.7 % Eosinophils (%) (Auto) 0.1 % Basophils (%) (Auto) 0.2 % Neutrophils # (Auto) 15.4 TH/MM3 Lymphocytes # (Auto) 0.7 TH/MM3 Monocytes # (Auto) 1.0 TH/MM3 Eosinophils # (Auto) 0.0 TH/MM3 Basophils # (Auto) 0.0 TH/MM3 CBC Comment AUTO DIFF Differential Total Cells 100 Counted Neutrophils % (Manual) 71 % Band Neutrophils % 19 % Lymphocytes % 2 % Monocytes % 7 % Neutrophils # (Manual) 15.7 TH/MM3 Metamyelocytes 1 % Differential Comment FINAL DIFF MANUAL Platelet Estimate NORMAL Platelet Morphology Comment ENLARGED Ovalocytes 1+ Prothrombin Time 33.6 SEC Prothromb Time International 2.9 RATIO Ratio Activated Partial 68.8 SEC Thromboplast Time Sodium Level 125 MEQ/L Potassium Level 4.3 MEQ/L Chloride Level 89 MEQ/L Carbon Dioxide Level 23.0 MEQ/L Anion Gap 13 MEQ/L Blood Urea Nitrogen 30 MG/DL Creatinine 1.79 MG/DL Estimat Glomerular Filtration 38 ML/MIN Rate Random Glucose 219 MG/DL Calcium Level 8.6 MG/DL Blood Type O POSITIVE Antibody Screen NEGATIVE MDM Medical Decision Making Medical Screen Exam Complete: Yes Emergency Medical Condition: Yes Differential Diagnosis Erosion of malignancy vs. Mucosal bleed Narrative Course 66yo M with hemoptysis. Pt had one episode of hemoptysis with about quarter size blood here. Hemodynamically stable. Sign out to next team to follow up on labs including INR since pt is on coumadin and call ENT Dr. Castillo. Nettie Sanderson DO Feb 22, 2017 18:42
[2017-02-22 19:35] LABS: AUTOMATED NEUTROPHIL # 15.4 TH/MM3 (1.8-7.7); BASOPHIL % 0.2 % (0.0-2.0); EOSINOPHIL % 0.1 % (0.0-4.0); HEMATOCRIT 31.6 % (39.0-51.0); LYMPH % 4.3 % (9.0-44.0); LYMPHOCYTE # 0.7 TH/MM3 (1.0-4.8); MEAN CELL VOLUME 75.8 FL (80.0-100.0); MEAN CORPUSCULAR HEMOGLOBIN 24.8 PG (27.0-34.0); MEAN CORPUSCULAR HGB CONC 32.7 % (32.0-36.0); MONO % 5.7 % (0.0-8.0); NEUT % 89.7 % (16.0-70.0); PLATELET COUNT 281 TH/MM3 (150-450); RED BLOOD COUNT 4.17 MIL/MM3 (4.50-5.90); RED CELL DISTRIBUTION WIDTH 16.3 % (11.6-17.2); WHITE BLOOD COUNT 17.2 TH/MM3 (4.0-11.0)
[2017-02-22 19:44] LABS: HEMO FLAGS AUTO DIFF
[2017-02-22 19:57] LABS: POTASSIUM 4.3 MEQ/L (3.5-5.1)
[2017-02-22 20:06] LABS: APTT (PATIENT) 68.8 SEC (24.3-30.1); INTERNATIONAL NORMALIZED RATIO 2.9 RATIO; PROTHROMBIN TIME - PATIENT 33.6 SEC (9.8-11.6)
[2017-02-22 20:16] LABS: BANDS 19 % (0-6); METAMYELOCYTES 1 % (0-1); NEUTROPHIL # MANUAL DIFF 15.7 TH/MM3 (1.8-7.7); POLYS (SEG NEUTROPHILS) 71 % (16-70); WBC DIFF SAMPLE 100
--- NOTE | 2017-02-22 20:18 | PD ---
Physical Exam Date Seen by Provider: Feb 22, 2017 Time Seen by Provider: 20:16 Narrative The patient is a 66-year-old male who presents to the emergency department for hemoptysis, has a recent diagnosis of laryngeal mass and carcinoma. The patient was initially evaluated by the previous physician, Dr. Sanderson, please refer to the initial history, physical, diagnostic evaluation, and treatment modality plan. The patient was signed out at 7 PM with hospice consultation possibly pending, the patient's primary physician, Dr. Juliane Briggs, was at bedside. Data Data Last Documented VS Vital Signs Date Time Temp Pulse Resp B/P Pulse Ox O2 Delivery O2 Flow Rate FiO2 02/22/17 21:26 89 16 153/76 97 Room Air 02/22/17 17:18 97.9 Orders Complete Blood Count With Diff (02/22/17 18:35) Basic Metabolic Panel (Bmp) (02/22/17 18:35) Prothrombin Time / Inr (Pt) (02/22/17 18:35) Act Partial Throm Time (Ptt) (02/22/17 18:35) Type And Screen (02/22/17 18:35) Chest, Single Ap (02/22/17 ) Blood Culture (02/22/17 20:29) Lactic Acid (02/22/17 20:29) Consult Ent (02/22/17 ) (Hub Use Only)Inp Phy Cons/Ref (02/22/17 ) Labs Laboratory Tests Test 02/22/17 18:47 White Blood Count 17.2 TH/MM3 Red Blood Count 4.17 MIL/MM3 Hemoglobin 10.3 GM/DL Hematocrit 31.6 % Mean Corpuscular Volume 75.8 FL Mean Corpuscular Hemoglobin 24.8 PG Mean Corpuscular Hemoglobin 32.7 % Concent Red Cell Distribution Width 16.3 % Platelet Count 281 TH/MM3 Mean Platelet Volume 10.0 FL Neutrophils (%) (Auto) 89.7 % Lymphocytes (%) (Auto) 4.3 % Monocytes (%) (Auto) 5.7 % Eosinophils (%) (Auto) 0.1 % Basophils (%) (Auto) 0.2 % Neutrophils # (Auto) 15.4 TH/MM3 Lymphocytes # (Auto) 0.7 TH/MM3 Monocytes # (Auto) 1.0 TH/MM3 Eosinophils # (Auto) 0.0 TH/MM3 Basophils # (Auto) 0.0 TH/MM3 CBC Comment AUTO DIFF Differential Total Cells 100 Counted Neutrophils % (Manual) 71 % Band Neutrophils % 19 % Lymphocytes % 2 % Monocytes % 7 % Neutrophils # (Manual) 15.7 TH/MM3 Metamyelocytes 1 % Differential Comment FINAL DIFF MANUAL Platelet Estimate NORMAL Platelet Morphology Comment ENLARGED Ovalocytes 1+ Prothrombin Time 33.6 SEC Prothromb Time International 2.9 RATIO Ratio Activated Partial 68.8 SEC Thromboplast Time Sodium Level 125 MEQ/L Potassium Level 4.3 MEQ/L Chloride Level 89 MEQ/L Carbon Dioxide Level 23.0 MEQ/L Anion Gap 13 MEQ/L Blood Urea Nitrogen 30 MG/DL Creatinine 1.79 MG/DL Estimat Glomerular Filtration 38 ML/MIN Rate Random Glucose 219 MG/DL Calcium Level 8.6 MG/DL Blood Type O POSITIVE Antibody Screen NEGATIVE [facility] Medical Record Reviewed: Yes Supervised Visit with SANG: No Interpretation(s) Laboratory Tests Test 02/22/17 18:47 White Blood Count 17.2 TH/MM3 Red Blood Count 4.17 MIL/MM3 Hemoglobin 10.3 GM/DL Hematocrit 31.6 % Mean Corpuscular Volume 75.8 FL Mean Corpuscular Hemoglobin 24.8 PG Mean Corpuscular Hemoglobin 32.7 % Concent Red Cell Distribution Width 16.3 % Platelet Count 281 TH/MM3 Mean Platelet Volume 10.0 FL Neutrophils (%) (Auto) 89.7 % Lymphocytes (%) (Auto) 4.3 % Monocytes (%) (Auto) 5.7 % Eosinophils (%) (Auto) 0.1 % Basophils (%) (Auto) 0.2 % Neutrophils # (Auto) 15.4 TH/MM3 Lymphocytes # (Auto) 0.7 TH/MM3 Monocytes # (Auto) 1.0 TH/MM3 Eosinophils # (Auto) 0.0 TH/MM3 Basophils # (Auto) 0.0 TH/MM3 CBC Comment AUTO DIFF Prothrombin Time 33.6 SEC Prothromb Time International 2.9 RATIO Ratio Activated Partial 68.8 SEC Thromboplast Time Sodium Level 125 MEQ/L Potassium Level 4.3 MEQ/L Chloride Level 89 MEQ/L Carbon Dioxide Level 23.0 MEQ/L Anion Gap 13 MEQ/L Blood Urea Nitrogen 30 MG/DL Creatinine 1.79 MG/DL Estimat Glomerular Filtration 38 ML/MIN Rate Random Glucose 219 MG/DL Calcium Level 8.6 MG/DL Blood Type O POSITIVE Antibody Screen NEGATIVE Differential Diagnosis Differential diagnosis includes oropharyngeal carcinoma, laryngeal mass, pulmonary embolism, coagulopathy, dehydration, hyponatremia, end-of-life care. Narrative Course The patient was initially evaluated by the previous physician, Dr. Sanderson. Please refer to initial history, physical, diagnostic evaluation, and treatment modality plan. The patient was signed out at 7 PM with possible hospice consultation pending and the patient's primary physician, Dr. Juliane Briggs, was at bedside. The patient did not want hospice, wants to consider his options and referral to [facility] for further evaluation of possible surgical evaluation. The patient is currently a full code according to his primary physician and the family's wishes. The patient was evaluated by Dr. Castillo, the ENT, bedside who stated that the airway is deviated, narrow, with a small amount of bleeding on the top of the large laryngeal tumor and he states that the airway is compromised. He states the patient will need a tracheostomy. I had a discussion with the family at bedside, stated the patient would need admission to [facility] [facility] in consultation with general surgery for tracheostomy, Dr. Castillo states he prefers his tracheostomy to the general surgeons. The family is comfortable with this plan of care and disposition. Therefore, the on-call commercial litigation paralegal was paged for admission. Physician Communication Physician Communication The on-call commercial litigation paralegal was paged for admission. I discussed the patient with Dr. Thomas who agrees with admission. Diagnosis Primary Impression: Laryngeal cancer Additional Impression: CKD (chronic kidney disease), stage IV Admitting Information Admitting Physician Requests: Admit Condition: Stable Alan Cooper MD Feb 22, 2017 20:18
[2017-02-22 20:19] LABS: OVALOCYTES 1+ (NORMAL); PLATELET ESTIMATE SMEAR NORMAL (NORMAL); PLATELET MORPHOLOGY ENLARGED (NORMAL); SCAN/DIFF FINAL DIFF MANUAL
--- NOTE | 2017-02-22 21:24 | RADRPT ---
EXAM DATE/TIME: 02/22/2017 21:07 [facility] COMPARISON: CHEST SINGLE AP, February 16, 2017, 15:09. INDICATIONS : Cough. Congestion. MEDICAL HISTORY : Cardiovascular disease. SURGICAL HISTORY : CABG. ENCOUNTER: Initial ACUITY: 3 days PAIN SCORE: 5/10 LOCATION: Bilateral chest FINDINGS: Median sternotomy wires are noted status post cardiac surgery. The heart and mediastinal structures are normal. The pulmonary vascular pattern is normal. The lungs are clear. CONCLUSION: 1. No acute cardiopulmonary disease. Bret Calderón MD on February 22, 2017 at 21:20 Board Certified Radiologist. This report was verified electronically.
[2017-02-22 21:26] VITALS: BP 153/76; PULSE 89; RESP 16; O2SAT 97
[2017-02-22] MEDS ORDERED: BISACODYL 10 MG SUPP RECTAL PRN (22:15)
[2017-02-22] MEDS ORDERED: CHLORHEXIDINE GLUCONATE 2 % 1 PACK (2 CLOTHS) TOP PRN (22:15)
[2017-02-22] MEDS ORDERED: LACTULOSE SYRUP 20 GM/30 ML CUP PO PRN (22:15)
[2017-02-22] MEDS ORDERED: MISCELLANEOUS NURSING INFORMATION XX SCH (22:15)
[2017-02-22] MEDS ORDERED: SENNOSIDES 8.6 MG TAB PO PRN (22:15)
--- NOTE | 2017-02-22 22:25 | HHI.HP ---
HPI Service Critical Care Medicine Primary Care Physician Juliane Briggs MD Admission Diagnosis oropharyngeal carcinoma with airway compromise, coagulopathy Diagnosis: Chief Complaint: Coughing up blood. Travel History International Travel<30 Days: No Contact w/Intl Traveler <30 Da: No Traveled to Known Affected Are: No History of Present Illness 66 y/o man with severe upper airway obstruction exacerbated by bleeding laryngeal malignancy. CT neck reveals markedly narrowed upper airway. Complicating features include full anticoagulation with warfarin and plavix antiplatelet therapy. 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 Below the cancer and above the innominate artery is a window suitable for emergency percutaneous tracheostomy once coagulopathy is reversed. Review of Systems Eyes: DENIES: Blurred vision, Diplopia, Eye inflammation, Eye pain, Vision loss , Photosensitivity, Double Vision Respiratory: COMPLAINS OF: Cough, Wheezing, Hemoptysis, Shortness of breath Gastrointestinal: DENIES: Abdominal pain, Black stools, Bloody stools, Constipation, Diarrhea, Nausea, Vomiting, Difficulty Swallowing, Anorexia Genitourinary: DENIES: Sexual dysfunction, Urinary frequency, Urinary incontinence, Urgency, Hematuria, Dysuria, Nocturia, Penile Discharge, Testicular Pain, Testicular Swelling Integumentary: DENIES: Abnormal pigmentation, Nail changes, Pruritus, Rash Immunologic/allergic: DENIES: Eczema, Urticaria Psychiatric: COMPLAINS OF: Anxiety Past Family Social History Allergies: Coded Allergies: HMG-CoA Reductase Inhibitors (Verified Allergy, Severe, 02/22/17) Niacin (Verified Allergy, Severe, 02/22/17) CAUSES HIM TO FEEL HOT Oily Fish (Verified Allergy, Intermediate, Diarrhea, 02/22/17) Past Medical History Past Medical History Hx Anticoagulant Therapy: Yes (plavix/coumadin) Arthritis: Yes Anxiety: Yes Depression: Yes 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) Cardiac Catheterization: Yes Cardiovascular Problems: Yes (chf) High Cholesterol: Yes Chemotherapy: Yes (laryngeal) Congestive Heart Failure: Yes COPD: Yes Cerebrovascular Accident: Yes Coronary Artery Disease: Yes Diabetes: Yes Patient Takes Glucophage: No Diminished Hearing: No Endocrine: Yes Gastrointestinal Disorders: Yes GERD: Yes Genitourinary: Yes (POLYCYSTIC KIDNEY DISEASE) Hypertension: Yes Immune Disorder: No Implanted Vascular Access Dvce: No Kidney Stones: Yes Musculoskeletal: Yes Neurologic: Yes Psychiatric: No Reproductive: No Respiratory: Yes (copd) Immunizations Current: Yes Myocardial Infarction: Yes Radiation Therapy: No Renal Failure: Yes Past Surgical History Abdominal Surgery: Yes (GALLBALADDER REMOVAL) Arteriovenous Shunt: No Cardiac Surgery: Yes (VASCULAR LEGS) Cholecystectomy: Yes Coronary Artery Bypass Graft: Yes Coronary Stent: Yes Ear Surgery: No Endocrine Surgery: No Eye Surgery: No Genitourinary Surgery: No Gynecologic Surgery: No Insulin Pump: No Joint Replacement: Yes (SCREWS IN LEFT SHOULDER) Oral Surgery: Yes (THROAT DIALATION) Thoracic Surgery: Yes (CABG) Tonsillectomy: Yes Other Surgery: Yes Family History Family Myocardial Infarction: Yes Social History Alcohol Use: No Tobacco Use: No (QUIT 2008) Substance Use: No Allergies-Medications Allergies-Medications (Allergen,Severity, Reaction): Coded Allergies: HMG-CoA Reductase Inhibitors (Verified Allergy, Severe, 02/22/17) Niacin (Verified Allergy, Severe, 02/22/17) CAUSES HIM TO FEEL HOT Oily Fish (Verified Allergy, Intermediate, Diarrhea, 02/22/17) Reported Meds & Prescriptions Reported Meds & Active Scripts Active Coumadin (Warfarin) 2 Mg Tab 2 Mg PO DAILY@16 Plavix (Clopidogrel Bisulfate) 75 Mg Tab 75 Mg PO DAILY Cilostazol 50 Mg Tab 50 Mg PO BIDAC Veltassa (Patiromer Sorbitex Calcium) 8.4 Gm Pow 8.4 Gm PO DAILY Sodium Bicarbonate 325 Mg Tab 325 Mg PO Q12HR Reported Protonix (Pantoprazole Sodium) 40 Mg Tab 40 Mg PO DAILY Claritin (Loratadine) 10 Mg Tablet 10 Mg PO DAILY Cymbalta DR (Duloxetine HCl) 30 Mg Capdr 30 Mg PO HS Spiriva Handihaler (Tiotropium Inh) 18 Mcg Cap 18 Mcg INH DAILY 1 capsule = 18 mcg Calcitriol 0.25 Mcg Cap 0.25 Mcg PO DAILY [place] (Hydrocodone-Acetaminophen) 10-325 Mg Tab 1 Tab PO Q6H PRN Gabapentin 300 Mg Cap 300 Mg PO BID Flonase Nasal Rupert (Fluticasone Nasal Rupert) 50 Mcg/Act Rupert 1 Spr EACH NARE DAILY Ventolin Hfa 18 GM Inh (Albuterol Sulfate) 90 Mcg/Act Aer 2 Puff INH Q4H PRN Physical Exam Vital Signs Vital Signs Date Time Temp Pulse Resp B/P Pulse Ox O2 Delivery O2 Flow Rate FiO2 02/22/17 21:26 89 16 153/76 97 Room Air 02/22/17 17:49 16 02/22/17 17:18 97.9 74 17 121/59 96 Physical Exam P 72, BP 177/85, R 18, labored, sats 96% 6L Head: Normal. Neck: Firm mass right anterior neck. Innominate artery palp in sternal notch. Stridor/obstructive noises in neck. Lungs: Transmitted stridor, few scattered rhonchi. Heart: NL S1S2, RRR, No JVD. Abdomen: Soft, no guarding. Extremities: Well perfused. Neuro: Moves 4 limbs. Conversant, exhausted. O X 3. Laboratory Laboratory Tests Test 02/22/17 18:47 White Blood Count 17.2 Red Blood Count 4.17 Hemoglobin 10.3 Hematocrit 31.6 Mean Corpuscular Volume 75.8 Mean Corpuscular Hemoglobin 24.8 Mean Corpuscular Hemoglobin 32.7 Concent Red Cell Distribution Width 16.3 Platelet Count 281 Mean Platelet Volume 10.0 Neutrophils (%) (Auto) 89.7 Lymphocytes (%) (Auto) 4.3 Monocytes (%) (Auto) 5.7 Eosinophils (%) (Auto) 0.1 Basophils (%) (Auto) 0.2 Neutrophils # (Auto) 15.4 Lymphocytes # (Auto) 0.7 Monocytes # (Auto) 1.0 Eosinophils # (Auto) 0.0 Basophils # (Auto) 0.0 CBC Comment AUTO DIFF Differential Total Cells 100 Counted Neutrophils % (Manual) 71 Band Neutrophils % 19 Lymphocytes % 2 Monocytes % 7 Neutrophils # (Manual) 15.7 Metamyelocytes 1 Differential Comment FINAL DIFF MANUAL Platelet Estimate NORMAL Platelet Morphology Comment ENLARGED Ovalocytes 1+ Prothrombin Time 33.6 Prothromb Time International 2.9 Ratio Activated Partial 68.8 Thromboplast Time Sodium Level 125 Potassium Level 4.3 Chloride Level 89 Carbon Dioxide Level 23.0 Anion Gap 13 Blood Urea Nitrogen 30 Creatinine 1.79 Estimat Glomerular Filtration 38 Rate Random Glucose 219 Calcium Level 8.6 Blood Type O POSITIVE Antibody Screen NEGATIVE Date/Time Procedure Status Source Growth 02/22/17 21:15 Aerobic Blood Culture Received Blood Peripheral Pending 02/22/17 21:15 Anaerobic Blood Culture Received Blood Peripheral Pending Result Diagram: 02/22/17184602/22/171846 Assessment and Plan Assessment and Plan Assessment: 1. 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 2. Subtotal occlusion right internal carotid artery. 3. Coagulopathy, warfarin induced. 4. PAD. 5. CAD. Plan: 1. HOB up 45. 2. FFP 4 units. 3. Confirm correction INR. 4. Percutaneous tracheostomy. 5. Protonix. 6. Neosynephrine gtt to keep SBP > 120. Overall impression: Critically ill with life-threatening upper airway obstruction. Needs emergency tracheostomy. Critical Care 39 mins Subhash Thomas MD Feb 22, 2017 22:25
[2017-02-22] MEDS: SODIUM CHLOR 0.9% 1000 ML INJ 1,000 ML IV SCH (22:33)
[2017-02-22] MEDS ORDERED: TERBUTALINE INJ 1 MG/ML AMP SQ PRN (22:45)
[2017-02-22] MEDS ORDERED: MIDAZOLAM HCL 5 MG/ML VIAL (1 ML) IM ONE (22:45)
[2017-02-22] MEDS ORDERED: PHENYLEPHRINE INJ 80 MG in DEXTROSE 5% IN WATE 500 ML INJ 492 ML IV SCH ×2 (22:45)
[2017-02-22 23:45] VITALS: BP 165/68; PULSE 98; RESP 16; TEMP 97.8; O2SAT 99
[2017-02-23] VITALS (18 sets, daily range): BP systolic 150–178; BP diastolic 42–88; PULSE 85–126; RESP 14–23; TEMP 97.5–99.6; O2SAT 99–100
[2017-02-23] MEDS: CHLORHEXIDINE GLUCONATE 2 % 1 PACK (2 CLOTHS) TOP SCH (03:30)
[2017-02-23 03:54] LABS: INTERNATIONAL NORMALIZED RATIO 1.5 RATIO; PROTHROMBIN TIME - PATIENT 16.3 SEC (9.8-11.6)
--- NOTE | 2017-02-23 04:28 | MB ---
cc: RENÉ CASTILLO MD DATE OF CONSULTATION: 02/22/2017 CHIEF COMPLAINT: Hemoptysis, laryngeal cancer. HISTORY: The patient is a pleasant 66-year-old male who presented to the emergency room with hemoptysis and recent diagnosis of laryngeal mass and carcinoma. The patient was initially evaluated by Dr. Alan Cooper. Please see the initial history and physical, and diagnosis. The patient has recent onset of likely recurrent laryngeal carcinoma. Recent CT scan showed a 4 cm right laryngeal mass eroding through the thyroid cartilage obstructing the airway and pushing the larynx to the left. The patient has two daughters who are both in the health field. One of them is a medical photographer, the other one is a nurse. He was scheduled to go to [facility] but she did note that he was having hemoptysis and he was brought in. He has no shortness of breath and he is tolerating room air without any difficulty. PHYSICAL EXAMINATION: On examination the patient is well-developed in no acute airway distress, however, on flexible fiberoptic laryngoscopy the airway was noted to be acutely narrowed and deviated to the left with only a slit for airway and fresh blood obstructing most of the airway. The patient was able to swallow for me numerous times and I was able to see the airway more clearly when he did this but it was markedly narrowed and deviated to the left. Thus, the patient has assessment of advanced laryngeal cancer obstructing his airway. The patient likely is not stable for discharge as per the amount of obstruction of the larynx as well as the active light bleeding over the obstruction. RECOMMENDATIONS The patient is recommended to stay for airway watch. I spoke with the emergency room attending. The patient will have his INR followed as he is on anticoagulation. General surgery will be consulted for consideration for definitive tracheostomy. Thank you for allowing me to assist in this patient's care. René Castillo MD [facility]/[place] /10:05 PM /4:18 AM EZEKIEL
[2017-02-23] MEDS: DOCUSATE SODIUM 50 MG/SENNA 8.6 MG TAB PO SCH ×2 (07:58→21:03)
[2017-02-23] MEDS: SODIUM CHLOR 0.9% 1000 ML INJ 1,000 ML IV SCH ×2 (07:58→21:03)
[2017-02-23] MEDS: PANTOPRAZOLE SODIUM 40 MG VIAL IV SCH (07:58)
--- NOTE | 2017-02-23 10:35 | HHI.CCPN ---
Subjective Remarks/Hospital Course Hospital Course: 66 y/o man with severe upper airway obstruction exacerbated by bleeding laryngeal malignancy. CT neck reveals markedly narrowed upper airway. Complicating features include full anticoagulation with warfarin and plavix antiplatelet therapy. 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 Below the cancer and above the innominate artery is a window suitable for emergency percutaneous tracheostomy once coagulopathy is reversed. Subjective: 02/23: bleeding has subsided. patient can lie flat without shortness of breath. I discussed the case with anesthesiology and surgery and plan for open awake trach today for airway protection. I discussed this at length with the patient and family, and they agree to proceed. Objective Vital Signs Date Time Temp Pulse Resp B/P Pulse Ox O2 Delivery O2 Flow Rate FiO2 02/23/17 07:49 100 Nasal Cannula 2.00 02/23/17 06:00 126 02/23/17 04:00 99.3 17 178/81 Result Diagram: 02/22/17184602/22/171846 Objective Remarks Head: Normal. Neck: Firm mass right anterior neck. Innominate artery palp in sternal notch. Stridor/obstructive noises in neck. Lungs: Transmitted stridor, few scattered rhonchi. Heart: RRR, No JVD. Abdomen: Soft, no guarding. Extremities: Well perfused. Neuro: Moves 4 limbs. Conversant, exhausted. O X 3. A/P Assessment and Plan Assessment: 66yM with airway obstruction and high risk for decompensation and . high risk airway. will need very close monitoring. plan for awake trach in OR today, then will be on fresh trach watch. remain in ICU. 1. 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 2. Subtotal occlusion right internal carotid artery. 3. Coagulopathy, warfarin induced- resolved. 4. PAD. 5. CAD. Plan: 1. HOB up 45. 2. daily INR. 3. awake trach today. 4. NPO until after procedure. 5. will likely need PEG after this. will discuss with family 6. Protonix. 7. Neosynephrine gtt to keep SBP > 120. Overall impression: Critically ill with life-threatening upper airway obstruction. Needs urgent tracheostomy. this has been arranged. Mohan Saab MD Feb 23, 2017 10:35
[2017-02-23] MEDS ORDERED: POTASSIUM CHLOR 20 MEQ PREMIX 100 ML IV PRN ×2 (10:45)
[2017-02-23] MEDS ORDERED: POTASSIUM PHOSPHATE INJ 30 MMOL in SODIUM CHLOR 0.9% 250 ML INJ 250 ML IV PRN (10:45)
[2017-02-23] MEDS ORDERED: POTASSIUM CHLOR 40 MEQ PREMIX 100 ML IV PRN ×2 (10:45)
[2017-02-23] MEDS ORDERED: POTASSIUM PHOSPHATE MONOBASIC 500 MG TAB PO/TUBE PRN (10:45)
[2017-02-23] MEDS ORDERED: MAGNESIUM OXIDE 400 MG TAB PO PRN (10:45)
[2017-02-23] MEDS ORDERED: POTASSIUM PHOSPHATE MONOBASIC 500 MG TAB PO PRN (10:45)
[2017-02-23] MEDS ORDERED: SODIUM PHOSPHATE INJ 30 MMOL in SODIUM CHLOR 0.9% 250 ML INJ 240 ML IV PRN (10:45)
[2017-02-23] MEDS ORDERED: MAGNESIUM SULFATE INJ 2 GM in SODIUM CHLORIDE 0.9% INJ 96 ML IV PRN (10:45)
[2017-02-23] MEDS ORDERED: MAGNESIUM SULFATE INJ 4 GM in SODIUM CHLORIDE 0.9% INJ 92 ML IV PRN (10:45)
[2017-02-23] MEDS ORDERED: MIDAZOLAM HCL 2 MG/2 ML VIAL ONE (12:07)
[2017-02-23] MEDS ORDERED: KETAMINE HCL 500 MG/5 ML VIAL ONE (12:08)
[2017-02-23] MEDS ORDERED: SODIUM BICARBONATE 8.4% INJ 50 ML ONE (12:17)
[2017-02-23] MEDS ORDERED: LIDOCAINE HCL 1% 50 ML VIAL ONE (12:18)
[2017-02-23] MEDS ORDERED: BUPIVACAINE/EPINEPHRINE 0.5% PF 30 ML VIAL ONE (12:18)
[2017-02-23] MEDS ORDERED: LIDOCAINE 1%/EPINEPHrine 1:100,000 SOLN 30 ML VIAL INFIL ONE (12:36)
[2017-02-23] MEDS ORDERED: LIDOCAINE 1.5%/EPINEPHrine 1:200,000 PF SOLN 30 ML AMP INFIL ONE (12:36)
--- NOTE | 2017-02-23 13:33 | MB ---
cc: SAI HUNT DATE OF CONSULTATION: 02/23/2017 REASON FOR CONSULTATION: Open tracheostomy due to near obstructing laryngeal cancer. REQUESTING PHYSICIAN: Dr. Osbaldo Culver HISTORY OF PRESENT ILLNESS The patient is a 66-year-old male who was admitted to [facility] for shortness of breath and stridor. The patient has a history of oral laryngeal carcinoma with airway compromise and is currently on anticoagulation. The patient in Intensive Care Unit and his anticoagulation was reversed. He was noted to have a significant near airway obstruction. It was felt the patient needed an urgent airway, although this was not emergent. The patient currently has an appointment at [facility] for consideration of surgery. General surgery was consulted for assistance of open tracheostomy due to risk as well as anatomy with a prominent innominate artery. REVIEW OF SYSTEMS: A 12 point review of systems was conducted with the patient and is negative except for the pertinent findings mentioned above in the history of present illness. PAST MEDICAL HISTORY: 1. Depression. 2. Laryngeal cancer as above. 3. High cholesterol. 4. Coronary artery disease. 5. Congestive heart failure. 6. COPD. 7. CVA. 8. Diabetes. 9. Gastroesophageal reflux disease 10. Hypertension 11. Renal stones. PAST SURGICAL HISTORY: Surgery for peripheral vascular disease, cholecystectomy, CABG, coronary stents. ALLERGIES HMG-COA REDUCTASE INHIBITORS, NIACIN, FISH OIL. MEDICATIONS 1. Coumadin. 2. Plavix. 3. Cilostazol. 4. Veltassa. 5. Sodium bicarb. 6. Protonix. 7. Faby tin. 8. Cymbalta 9. Spiriva. 10. Calcitriol. 11. Bloomingrose 12. Gabapentin. 13. Flonase 14. Ventolin. SOCIAL HISTORY: The patient quit tobacco in 2008. No alcohol or illicit drug use. FAMILY HISTORY: History of coronary artery disease. PHYSICAL EXAMINATION: VITAL SIGNS: Blood pressure 154/74. O2 saturation 100% on room air. The patient's heart rate is 114, afebrile, 97.5 degrees Fahrenheit. GENERAL: The patient is a chronically ill-appearing male in no acute distress. Head: Normocephalic. Pupils round, reactive to light. Sclerae is anicteric. Oral cavity is clear. Neck is supple. No JVD. No lymphadenopathy. Trachea is midline and palpable below the cricoid cartilage. Lungs: Breath sounds present bilaterally. Non labored breathing pattern. No wheezing, rhonchi or rales. Heart: Regular rhythm. Abdomen: Soft, nondistended, nontender to palpation. Extremities: No edema. Neurologic: The patient is awake, alert, oriented x3. Cranial nerves II through XII grossly intact, nonfocal peripheral exam. LABORATORY VALUES: Hemoglobin 10.3, INR 1.5, creatinine 1.79. ASSESSMENT/PLAN The patient is a 66 year-old male with a near obstructing laryngeal cancer with stridor and shortness of breath. The patient was admitted, anticoagulation was held and his INR is 1.5. Discussed with the patient and Dr. Saab, as well as anesthesia about proactively controlling the patient's airway with tracheostomy at this time due to significant risk for complete airway occlusion and need for emergent airway in the next hours to days. We felt that the patient would benefit from proactive airway control at this time. We did recommend this to the patient and family and discussed this extensively. They are in agreement fully. The risks, benefits and alternatives to open tracheostomy were discussed with the patient including from airway loss. They understand the risk and wished to proceed with open tracheostomy. We will proceed with tracheostomy today based on operating room availability. Thank you for this consultation. MD SHARRON Wiggins/[place] /12:13 PM /1:16 PM
--- NOTE | 2017-02-23 14:26 | RADRPT ---
EXAM DATE/TIME: 02/23/2017 13:35 [facility] COMPARISON: CHEST SINGLE AP, February 22, 2017, 21:07. INDICATIONS : S/P tracheostomy. MEDICAL HISTORY : Chronic obstructive pulmonary disease. Cardiovascular disease. SURGICAL HISTORY : CABG. ENCOUNTER: Initial ACUITY: 1 day PAIN SCORE: Non-responsive. LOCATION: Bilateral chest FINDINGS: The patient is status post sternotomy. There is a tracheostomy tube in good position. The heart size is normal. The lungs are grossly clear. CONCLUSION: Tracheostomy tube in good position. Tomi Bush MD on February 23, 2017 at 14:23 Board Certified Radiologist. This report was verified electronically.
[2017-02-23] MEDS: oxyCODONE HCL ORAL CONC 20 MG/ML SYRINGE PO PRN ×2 (16:33→23:44)
--- NOTE | 2017-02-23 17:55 | MP ---
cc: SAI HUNT DATE OF SURGERY: 02/23/2017. PREOPERATIVE DIAGNOSIS: Laryngeal cancer with near complete obstruction of the airway. POSTOPERATIVE DIAGNOSIS: Laryngeal cancer with near complete obstruction of the airway. OPERATIVE PROCEDURE PERFORMED: Open tracheostomy. ATTENDING SURGEON: Sai Hunt M.D. INFORMATICA ARCHITECT: Staff. ANESTHESIA TIVA and lidocaine 1% with epinephrine. ESTIMATED BLOOD LOSS: Less than 10 cc. COMPLICATIONS: None. FINDINGS: Tracheostomy in the appropriate position and obtained in the second and third tracheal rings. No significant impingement by innominate artery or tumor during the procedure. INDICATIONS FOR THE PROCEDURE: The patient is a 66-year-old male with a laryngeal cancer nearly obstructing his upper airway. The patient presented to [facility] with stridor and shortness of breath. The patient was admitted to the intensive care unit and his anticoagulation was held and his INR was normalized. On discussion with the patient and the family; specifically his , about the management of Dr. Culver, recommended open tracheostomy due to the significant airway obstruction and the concern for impending airway obstruction. The risks, benefits, and alternatives to this approach were discussed with the family and the patient prior to the procedure and they agreed to undergo the procedure. DESCRIPTION OF THE PROCEDURE IN DETAIL: The patient was taken to the operating room and placed in the supine position and placed under TIVA sedation. The patient's anterior neck was prepped and draped in the sterile fashion. Time-out was performed. 1% lidocaine was used to anesthetize the skin overlying as well as down to the trachea with a 22-gauge needle. Once this was adequately anesthetized, a 4 cm skin incision was made two fingerbreadths above the sternal notch with a 15 blade scalpel. Bovie electrocautery was used for the subcutaneous tissue and through the platysma. We were able to spread the strap muscles laterally and spreading and cauterized the pretracheal fascia without difficulty. We were above the thyroid and we were well medial and superior to the innominate artery. We were approximately two fingerbreadths from the sternal notch and could see the pretracheal fascia. At this point in time, incision that was most amenable to a percutaneous tracheostomy as the patient was only under TIVA because of his airway, had a strong cough reflex and we wanted to secure the tracheostomy more quickly. I elected to use a Blue Rhino technique. We placed an 18-gauge needle through the anterior trachea and air was expressed. A wire was passed and this was dilated with the Blue Rhino kit. A size 8 [place] tracheostomy was placed into the tracheotomy without difficulty. The balloon was inflated and the patient was placed on 100% oxygen through his newly placed tracheotomy. We then did place some Surgicel around the wound to help with hemostasis due to the patient being recently anticoagulated. We sutured the trache in place with four interrupted nylon sutures. We placed the trache collar in place. The patient was maintained on analgesics and some sedation and on oxygen through his newly placed tracheostomy and was returned to the intensive care unit in stable condition. The patient tolerated the procedure well. No apparent complications. All counts were correct. I was present and scrubbed for the entire procedure. MD SHARRON Wiggins/[place] /1:43 PM /5:45 PM
[2017-02-23] MEDS: GABAPENTIN 300 MG CAP PO SCH (21:03)
[2017-02-23] MEDS: DULoxetine HCl DR 30 MG CAP PO SCH (21:03)
[2017-02-23] MEDS: SODIUM BICARBONATE 325 MG TAB PO SCH (21:03)
[2017-02-24] VITALS (14 sets, daily range): BP systolic 127–170; BP diastolic 63–82; PULSE 72–142; RESP 10–33; TEMP 98.3–98.8; O2SAT 99–100
[2017-02-24] MEDS: CHLORHEXIDINE GLUCONATE 2 % 1 PACK (2 CLOTHS) TOP SCH (02:51)
[2017-02-24 04:47] LABS: HEMATOCRIT 28.7 % (39.0-51.0); MEAN CELL VOLUME 76.6 FL (80.0-100.0); MEAN CORPUSCULAR HEMOGLOBIN 24.7 PG (27.0-34.0); MEAN CORPUSCULAR HGB CONC 32.3 % (32.0-36.0); PLATELET COUNT 273 TH/MM3 (150-450); RED BLOOD COUNT 3.75 MIL/MM3 (4.50-5.90); REVIEW FLAG FINAL; WHITE BLOOD COUNT 10.4 TH/MM3 (4.0-11.0)
[2017-02-24 05:23] LABS: APTT (PATIENT) 48.3 SEC (24.3-30.1); INTERNATIONAL NORMALIZED RATIO 1.7 RATIO; PROTHROMBIN TIME - PATIENT 19.4 SEC (9.8-11.6)
[2017-02-24 06:04] LABS: BICARBONATE 25.8 MEQ/L (21.0-32.0); POTASSIUM 4.4 MEQ/L (3.5-5.1)
[2017-02-24] MEDS: PANTOPRAZOLE SOD 40 MG DELAYED RELEASE TAB PO SCH (09:00)
[2017-02-24] MEDS: TIOTROPIUM BROMIDE 18 MCG INH INH SCH ×2 (09:00→09:27)
[2017-02-24] MEDS: LORATADINE 10 MG TAB PO SCH (09:26)
[2017-02-24] MEDS: SODIUM BICARBONATE 325 MG TAB PO SCH ×2 (09:26→21:13)
[2017-02-24] MEDS: GABAPENTIN 300 MG CAP PO SCH ×2 (09:26→21:13)
[2017-02-24] MEDS: PANTOPRAZOLE SODIUM 40 MG VIAL IV SCH (09:26)
[2017-02-24] MEDS: DOCUSATE SODIUM 50 MG/SENNA 8.6 MG TAB PO SCH ×2 (09:26→21:13)
[2017-02-24] MEDS: SODIUM CHLOR 0.9% 1000 ML INJ 1,000 ML IV SCH ×2 (09:28→21:50)
[2017-02-24] MEDS ORDERED: BEDSIDE COMMODE1 MI1 (12:33)
[2017-02-24] MEDS ORDERED: GLUCAGON 1 MG/ML VIAL OTHER PRN (12:45)
[2017-02-24] MEDS ORDERED: DEXTROSE 50% IN WATER 50 ML VIAL(D50) IV PRN (12:45)
--- NOTE | 2017-02-24 12:49 | HHI.PR ---
Subjective Remarks Doing well status post tracheostomy placement yesterday. No complaints of active bleeding since placement of tracheostomy. Patient is breathing better. Objective Vital Signs Date Time Temp Pulse Resp B/P Pulse Ox O2 Delivery O2 Flow Rate FiO2 02/24/17 10:00 91 02/24/17 08:00 114 02/24/17 08:00 98.4 122 33 170/82 99 02/24/17 07:50 99 T-piece 5.00 28 02/24/17 07:00 100 T-Piece 28 02/24/17 06:00 92 02/24/17 04:00 98.4 74 12 140/67 100 02/24/17 04:00 74 02/24/17 02:00 72 02/24/17 00:00 89 02/24/17 00:00 98.8 89 10 160/74 99 02/23/17 22:00 92 02/23/17 21:59 100 T-piece 5.00 28 02/23/17 20:00 90 02/23/17 20:00 98.7 90 18 150/42 99 02/23/17 19:00 98 T-Piece 28 02/23/17 18:00 85 02/23/17 16:00 99.6 109 19 170/88 100 02/23/17 16:00 109 02/23/17 14:00 126 02/23/17 13:47 100 T-piece 28 I/O 02/23/17 02/23/17 02/23/17 02/24/17 02/24/17 02/24/17 07:00 15:00 23:00 07:00 15:00 23:00 Intake Total 1857 ml 547 ml 645 ml 1057 ml Output Total 300 ml 1400 ml 1000 ml 650 ml 0 ml Balance 1557 ml -853 ml -355 ml 407 ml 0 ml Intake IV Total 624 ml 547 ml 613 ml 726 ml Tube Feeding 32 ml 331 ml FFP 1233 ml Output Urine Total 300 ml 1400 ml 1000 ml 650 ml Tube Feeding Residual Discard 0 ml # Voids 3 # Bowel Movements 0 0 0 0 Result Diagram: 02/24/17 0415 02/24/17 0415 Imaging Last Impressions Chest X-Ray 02/23/17 0000 Signed Impressions: Service Date/Time: Thursday, February 23, 2017 13:35 - CONCLUSION: Tracheostomy tube in good position. Tomi Bush MD Objective Remarks GENERAL: NAD, A&Ox3 HEAD: Normocephalic. NECK: Supple, trachea midline. No lymphadenopathy. Tracheostomy in place, no signs of active bleeding. EYES: No scleral icterus. No injection or drainage. CARDIOVASCULAR: Regular rate and rhythm without murmurs, gallops, or rubs. RESPIRATORY: Breath sounds equal bilaterally. No accessory muscle use. GASTROINTESTINAL: Abdomen soft, non-tender, nondistended. MUSCULOSKELETAL: No cyanosis, or edema. SKIN: Warm and dry. NEURO: No focal neurological deficitis. Medications and IVs Administered Medications Medications (Trade) Dose Ordered Sig/Alea Route PRN Reason Start Time Stop Time Status Last Admin Dose Admin Sodium Chloride (NS 1000 ml Inj) 1,000 ml @ 84 mls/hr [id number] IV 02/22/17 22:10 02/24/17 09:28 Pantoprazole Sodium (Protonix Inj) 40 mg DAILY IV 02/23/17 09:00 02/24/17 09:26 Miscellaneous Information 1 [id number] XX 02/22/17 22:15 02/22/17 22:15 Chlorhexidine Gluconate (Chlorhexidine 2% Cloth) 3 pack Taper DAILY@04 TOP 02/23/17 04:00 02/19/18 03:59 02/24/17 02:51 Senna/Docusate Sodium (Genoveva-Colace) 1 tab BID PO 02/23/17 09:00 02/24/17 09:26 Duloxetine HCl (Cymbalta Dr) 30 mg HS PO 02/23/17 21:00 02/23/17 21:03 Gabapentin (Neurontin) 300 mg BID PO 02/23/17 21:00 02/24/17 09:26 Loratadine (Claritin) 10 mg DAILY PO 02/24/17 09:00 02/24/17 09:26 Sodium Bicarbonate (Sodium Bicarbonate) 325 mg Q12HR PO 02/23/17 21:00 02/24/17 09:26 Oxycodone HCl (Roxicodone Intensol Liq) 10 mg Q4H PRN PO pain 1-5 02/23/17 16:00 02/23/17 23:44 A/P Problem List: (1) Laryngeal cancer ICD Code: C32.9 (2) Weakness ICD Code: R53.1 (3) Airway obstruction ICD Code: J98.8 (4) Stenosis of right carotid artery ICD Code: I65.21 (5) Diabetes mellitus ICD Code: E11.9 (6) ROSALINO (acute kidney injury) ICD Code: N17.9 Assessment and Plan Assessment and Plan 66-year-old male status post tracheostomy placement yesterday. Tracheostomy placed secondary to airway obstruction from bleeding into laryngeal mass. Laryngeal cancer with acute hematoma and airway obstruction Status post tracheostomy, placed yesterday Doing well with significant improvement in breathing. Given laryngeal cancer and potentially compromised tissue coupled with Coumadin , he will be monitored in the ICU for 1 more day due to risk of bleeding Transferred to medical surgical floor planned for tomorrow if patient remains stable Plan to resume Coumadin greater than 48 hours after surgery (done yesterday), so this should resume the a.m. of 02/26/17 Continue feeds via feeding tube Physical therapy Speech therapy Right internal carotid artery stenosis Appears to be nearly fully included CT angiography once patient is stable Acute kidney injury Likely related to relative dehydration to acute phase of admit Improving through time Continue IV hydration and tube feeding hydration Follow renal function Diabetes mellitus type 2 Insulin sliding scale Follow blood sugars Patient is currently on tube feeds Peripheral artery disease Coronary artery disease Follow clinically No chest pain Resumption of Coumadin planned as above Global weakness Physical therapy DVT prophylaxis On Coumadin Dion Fox MD Feb 24, 2017 12:49 pm
[2017-02-24] MEDS: INSULIN ASPART SUPPLEMENTAL SCALE SQ SCH ×2 (16:53→21:47)
--- NOTE | 2017-02-24 18:28 | HHI.PR ---
Subjective Subjective Notes Resting in bed at bedside Objective Vitals/I&O Vital Signs Date Time Temp Pulse Resp B/P Pulse Ox O2 Delivery O2 Flow Rate FiO2 02/24/17 18:00 88 02/24/17 16:00 98.7 15 134/68 100 02/24/17 07:50 T-piece 5.00 28 Labs Laboratory Tests Test 02/24/17 04:15 White Blood Count 10.4 Red Blood Count 3.75 Hemoglobin 9.3 Hematocrit 28.7 Mean Corpuscular Volume 76.6 Mean Corpuscular Hemoglobin 24.7 Mean Corpuscular Hemoglobin 32.3 Concent Red Cell Distribution Width 17.0 Platelet Count 273 Mean Platelet Volume 9.0 Prothrombin Time 19.4 Prothromb Time International 1.7 Ratio Activated Partial 48.3 Thromboplast Time Sodium Level 140 Potassium Level 4.4 Chloride Level 107 Carbon Dioxide Level 25.8 Anion Gap 7 Blood Urea Nitrogen 29 Creatinine 1.63 Estimat Glomerular Filtration 42 Rate Random Glucose 164 Calcium Level 8.5 Date/Time Procedure Status Source Growth 02/22/17 21:15 Aerobic Blood Culture - Preliminary Resulted Blood Peripheral NO GROWTH IN 2 DAYS 02/22/17 21:15 Anaerobic Blood Culture - Preliminary Resulted Blood Peripheral NO GROWTH IN 2 DAYS Cardiovascular: Regular Lungs: Clear Abdomen: Non-distended, Non-tender Extremities: No edema Narrative Exam Trach in place without complications A/P Assessment and Plan 66 year old male with laryngeal cancer with near obstructing mass in airway; POD1 tracheostomy tube placement -Continue rehab-PT/OT/ST -Continue routine trach care -GS will sign off; please call with questions Attending Statement The exam, history, and the medical decision-making described in the above note were completed with the assistance of the mid-level provider. I reviewed and agree with the findings presented. I attest that I had a [id number] encounter with the patient on the same day, and personally performed and documented my assessment and findings in the medical record. s/p open trach, no signs of complications will sign off, trach management per speech and IM/CCM Salima Carter Feb 24, 2017 18:28 Stanley Moeller MD Feb 26, 2017 13:50
[2017-02-24] MEDS: DULoxetine HCl DR 30 MG CAP PO SCH (21:00)
[2017-02-24] MEDS: oxyCODONE HCL ORAL CONC 20 MG/ML SYRINGE PO PRN (21:13)
[2017-02-25] VITALS (14 sets, daily range): BP systolic 148–164; BP diastolic 67–79; PULSE 75–97; RESP 9–18; TEMP 98–98.8; O2SAT 97–100
[2017-02-25] MEDS: oxyCODONE HCL ORAL CONC 20 MG/ML SYRINGE PO PRN ×4 (03:07→22:16)
[2017-02-25] MEDS: SODIUM CHLOR 0.9% 1000 ML INJ 1,000 ML IV SCH ×2 (03:28→20:11)
[2017-02-25] MEDS: CHLORHEXIDINE GLUCONATE 2 % 1 PACK (2 CLOTHS) TOP SCH (03:31)
[2017-02-25 04:51] LABS: HEMATOCRIT 29.6 % (39.0-51.0); MEAN CELL VOLUME 77.6 FL (80.0-100.0); MEAN CORPUSCULAR HEMOGLOBIN 24.2 PG (27.0-34.0); MEAN CORPUSCULAR HGB CONC 31.2 % (32.0-36.0); PLATELET COUNT 283 TH/MM3 (150-450); RED BLOOD COUNT 3.81 MIL/MM3 (4.50-5.90); RED CELL DISTRIBUTION WIDTH 17.1 % (11.6-17.2); REVIEW FLAG FINAL; WHITE BLOOD COUNT 11.1 TH/MM3 (4.0-11.0)
[2017-02-25 05:01] LABS: INTERNATIONAL NORMALIZED RATIO 1.6 RATIO; PROTHROMBIN TIME - PATIENT 17.5 SEC (9.8-11.6)
[2017-02-25 05:16] LABS: BICARBONATE 25.2 MEQ/L (21.0-32.0); POTASSIUM 4.2 MEQ/L (3.5-5.1)
[2017-02-25] MEDS: INSULIN ASPART SUPPLEMENTAL SCALE SQ SCH ×4 (06:40→20:11)
[2017-02-25] MEDS: TIOTROPIUM BROMIDE 18 MCG INH INH SCH (07:45)
[2017-02-25] MEDS: SODIUM BICARBONATE 325 MG TAB PO SCH ×2 (07:46→20:10)
[2017-02-25] MEDS: GABAPENTIN 300 MG CAP PO SCH ×2 (07:46→20:10)
[2017-02-25] MEDS: PANTOPRAZOLE SOD 40 MG DELAYED RELEASE TAB PO SCH (07:46)
[2017-02-25] MEDS: PANTOPRAZOLE SODIUM 40 MG VIAL IV SCH (07:46)
[2017-02-25] MEDS: LORATADINE 10 MG TAB PO SCH (07:46)
[2017-02-25] MEDS: DOCUSATE SODIUM 50 MG/SENNA 8.6 MG TAB PO SCH ×2 (07:46→20:10)
[2017-02-25] MEDS ORDERED: RESP: ALBUTEROL 2.5 MG/IPRATROPIUM 0.5 MG NEB (PRN) INH (09:00)
--- NOTE | 2017-02-25 11:14 | HHI.PR ---
Subjective Remarks No signs of bleeding. Rest towards status stable. Tracheostomy in place. Patient is starting to ambulate with physical therapy. Speech therapy pending. Objective Vital Signs Date Time Temp Pulse Resp B/P Pulse Ox O2 Delivery O2 Flow Rate FiO2 02/25/17 10:00 97 02/25/17 08:15 99 T-piece 6.00 28 02/25/17 08:00 82 02/25/17 08:00 98.1 82 15 148/67 100 02/25/17 07:00 99 T-Piece 28 02/25/17 06:00 75 02/25/17 04:07 9 02/25/17 04:00 83 02/25/17 04:00 98.4 83 9 149/70 98 02/25/17 02:00 82 02/25/17 00:00 98.4 86 10 164/74 100 02/25/17 00:00 86 02/24/17 23:08 100 T-piece 6.00 28 02/24/17 22:00 84 02/24/17 20:00 98.7 88 11 163/78 99 02/24/17 20:00 88 02/24/17 19:00 99 T-Piece 28 02/24/17 18:00 88 02/24/17 16:00 142 02/24/17 16:00 98.7 142 15 134/68 100 02/24/17 14:00 100 02/24/17 12:00 98.3 79 11 127/63 100 02/24/17 12:00 79 I/O 02/24/17 02/24/17 02/24/17 02/25/17 02/25/17 02/25/17 07:00 15:00 23:00 07:00 15:00 23:00 Intake Total 1057 ml 1075 ml 583 ml 1116 ml Output Total 650 ml 330 ml 500 ml 500 ml 0 ml Balance 407 ml 745 ml 83 ml 616 ml 0 ml Intake IV Total 726 ml 695 ml 167 ml 732 ml Tube Feeding 331 ml 360 ml 336 ml 324 ml Tube Irrigant 20 ml 80 ml 60 ml Output Urine Total 650 ml 330 ml 500 ml 500 ml Tube Feeding Residual Discard 0 ml 0 ml 0 ml 0 ml # Bowel Movements 0 0 0 0 Result Diagram: 02/25/17 0352 02/25/17 0352 Objective Remarks GENERAL: NAD, A&Ox3 HEAD: Normocephalic. NECK: Supple, trachea midline. No lymphadenopathy. Tracheostomy in place, no signs of active bleeding. EYES: No scleral icterus. No injection or drainage. CARDIOVASCULAR: Regular rate and rhythm without murmurs, gallops, or rubs. RESPIRATORY: Breath sounds equal bilaterally. No accessory muscle use. GASTROINTESTINAL: Abdomen soft, non-tender, nondistended. MUSCULOSKELETAL: No cyanosis, or edema. SKIN: Warm and dry. NEURO: No focal neurological deficitis. A/P Problem List: (1) Laryngeal cancer ICD Code: C32.9 (2) Weakness ICD Code: R53.1 (3) Airway obstruction ICD Code: J98.8 (4) Stenosis of right carotid artery ICD Code: I65.21 (5) Diabetes mellitus ICD Code: E11.9 (6) ROSALINO (acute kidney injury) ICD Code: N17.9 Assessment and Plan Assessment and Plan 66-year-old male status post tracheostomy placement. Tracheostomy placed secondary to airway obstruction from bleeding into laryngeal mass. Recovering well postprocedure. No signs of further bleeding. Physical rehabilitation started. Speech rehabilitation pending. Stable for transfer out of ICU. Laryngeal cancer with acute hematoma and airway obstruction Status post tracheostomy Transferred to medical surgical floor Plan to resume Coumadin greater than 48 hours after surgery (done yesterday), so this should resume the a.m. of 02/26/17 Continue feeds via feeding tube Physical therapy Speech therapy Right internal carotid artery stenosis Appears to be nearly fully included CT angiography once patient is stable Acute kidney injury Likely related to relative dehydration to acute phase of admit Improving through time Continue IV hydration and tube feeding hydration Follow renal function Diabetes mellitus type 2 Insulin sliding scale Follow blood sugars Patient is currently on tube feeds Peripheral artery disease Coronary artery disease Follow clinically No chest pain Resumption of Coumadin planned as above Global weakness Physical therapy DVT prophylaxis On Coumadin Dion Fox MD Feb 25, 2017 11:14 am
--- NOTE | 2017-02-25 17:49 | MB ---
cc: Liliya BRIGHT M.D. DATE OF CONSULTATION: 02/25/2017 REASON FOR CONSULTATION: HISTORY Mr. Iverson is a 66-year-old white male who presented with extreme dyspnea related to upper airway obstruction from a laryngeal malignancy. Apparently this was diagnosed over a year ago, was treated at [facility] but has been followed locally here by Dr. Melchor. He also had a PEG tube placed about a year ago because he was having a lot of swallowing difficulty but had not really ever developed this degree of respiratory problems. He has had several admissions for aspiration pneumonias. He has been kept n.p.o. due to upper airway dysfunction and esophageal dysfunction, being fed with the PEG tube. On admission he was noted to be in very significant distress, had an urgent tracheostomy performed and over the last 24 hours has been stable in the ICU. He was anticoagulated on Coumadin. That was reversed, so the procedure could be done. There is a questionable prior history of COPD. His daughter is at the bedside and knows his history. He was a former smoker, quit smoking about 7 years ago, and had some inhalers at home but was not using them routinely. Actually until he developed this upper airway obstruction, his breathing had been adequate. ADDITIONAL PRIOR HISTORY: 1. History of bypass surgery. 2. Polycystic kidney disease 3. Pneumonia, probably due to aspiration. 4. Diabetes. 5. Hypertension. 6. Reflux disease. OTHER SURGERIES: 1. Cholecystectomy 2. Femoral bypass. 3. Kidney stents for arterial occlusion. ALLERGIES: NIACIN MEDICATIONS: Reviewed in the EMR. SOCIAL HISTORY: No longer smokes. He does not drink alcohol. PHYSICAL EXAMINATION: An elderly white male, no distress at rest, breathing comfortably, afebrile. Pulse is 90, respiratory rate 18. O2 sat 99% on six liter flow. Tracheostomy in place. CHEST: Somewhat diminished but clear, no congestion or wheezing. HEART: Regular rhythm. No harsh murmur. ABDOMEN: Soft. He has a PEG in the left upper quadrant. No significant edema or cyanosis. Chest x-ray, lung seo are clear. DISCUSSION: Mr. Iverson presents with upper airway obstruction compromised by what appears to be recurrent laryngeal malignancy. He is much better now that the tracheostomy has been placed. Will place him on p.r.n. aerosol treatments. He is begun on Spiriva. He is on low flow oxygen which we will continue. Pulmonary status is actually stable at this point and tracheostomy is obviously permanent until such time the upper airway pathology is corrected. R. MD LYNETTE Anna/MARGO /12:37 PM /5:35 PM
[2017-02-25] MEDS: DULoxetine HCl DR 30 MG CAP PO SCH (20:10)
--- NOTE | 2017-02-25 22:45 | MB ---
cc: AMGDALENA RIVERA DATE OF CONSULTATION 02/25/2017 DATE OF 1950 REASON FOR CONSULTATION Patient with recurrent head and neck cancer. CHIEF COMPLAINT Dyspnea, respiratory failure and airway obstruction. HISTORY OF PRESENT ILLNESS Mr. 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 He was diagnosed with this malignancy in early 2015. He had presented with dysphagia and imaging revealed a mass centered in the supraglottic tissue. It was approximately 4.2 x 3.6 cm. The margins were ill-defined and involved the false vocal cord, epiglottic fold and right side of the epiglottis. It extended inferiorly to the level of the right vocal cord. The patient was seen at the [facility] in [place] who was not deemed to be a candidate for chemotherapy or surgery at that time. He was treated with single modality radiation treatments. He had good response to the treatment and subsequent imaging did not show any residual disease. He was closely monitored subsequently with periodic follow-ups and CT scans. He recently presented to the oncology clinic and complained of dysphagia and feeling of a lump in his throat. A CT scan was ordered for the patient but unfortunately due to insurance issues this was delayed. He presented to the [facility] in [place] with significant dysphagia. A CT of the neck was completed on 02/17/2017 which showed a mass in the right larynx region. There was destruction of the right side of the thyroid cartilage. There was displacement of the airway at the level of the larynx towards the left. The airway appeared narrowed. The patient at that time wanted to leave the hospital and travel to [place] to be with his daughter and his plans were to seek medical care at [facility]. However, the patient became progressively more dyspneic and was brought to the hospital. He had dyspnea and stridor. He had significant airway obstruction. He underwent open tracheostomy since he had significant risk of complete occlusion of the airway. From a respiratory standpoint the patient is doing better. He has been having some hemoptysis. REVIEW OF SYSTEMS A comprehensive 14-point review of systems was completed which is negative except as described in the HPI. PAST MEDICAL HISTORY 1. History of laryngeal carcinoma. 2. Hyperlipidemia. 3. Depression. 4. Congestive heart failure. 5. Chronic obstructive pulmonary disease. 6. Cerebrovascular accident. 7. Gastroesophageal reflux disease. 8. Hypertension. PAST SURGICAL HISTORY 1. Recent tracheostomy. ] 2. He had vascular surgery for peripheral vascular disease. 3. Cholecystectomy. 4. Coronary artery bypass graft. 5. Coronary artery stents. ALLERGIES ALLERGIC TO STATINS, NIACIN, FISH OIL. MEDICATIONS Inpatient medications were reviewed. 1. DuoNeb q.6h as needed. 2. Sliding-scale insulin. 3. Claritin 10 mg p.o. daily. 4. Protonix 40 mg p.o. daily. 5. Spiriva 18 mcg INH daily. 6. Cymbalta 30 mg p.o. q.h.s. 7. Neurontin 300 mg p.o. b.i.d. 8. Sodium bicarb 325 mg p.o. q. 12 hours. 9. Oxycodone mg p.o. q.4h. 10. Senna / docusate one tablet p.o. twice a day. ALLERGIES As stated above. FAMILY HISTORY Reviewed and is noncontributory to this admission. SOCIAL HISTORY He is . He is an ex-smoker. He does not drink alcohol. No illicit drug use. PHYSICAL EXAMINATION VITAL SIGNS: Blood pressure is 152/72, pulse is in the 80s, temperature is 98.8. GENERAL: Chronically ill-appearing male sitting up in chair in no apparent distress. Has had tracheostomy. HEENT: Pupils are equal, round, react to light. EOMI. No oral thrush. No oral lesion. NECK: Supple. No JVD, no bruits. No lymphadenopathy. CHEST: Clear to auscultation bilaterally. CARDIOVASCULAR: S1-S2 regular rate and rhythm. ABDOMEN: Soft, nontender, nondistended. Bowel sounds are present. EXTREMITIES: Without any edema, erythema or cyanosis. SKIN: Without any petechiae, lesion or bruises. NEUROLOGIC: No focal deficits. PSYCHIATRIC: Mood and affect are appropriate. LABORATORY DATA WBC 11.1, hemoglobin is 9.2, MCV is 77.6, platelet count is 283. Serum chemistries show sodium of 143, potassium 4.2, chloride 108, CO2 25.2, BUN 29, creatinine is 1.5, GFR is 47, glucose is 179, calcium is 11.5. IMAGING STUDIES Reviewed in the EMR. ASSESSMENT/PLAN This is a 66-year-old male who has a history of upper airway carcinoma. He is status post single modality treatment with radiation in 2016. He now presents with upper airway compromise with an enlarging mass. He is status post tracheostomy. 1. 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 He has a fairly large sized mass in his larynx which is occluding the airway. He is status post tracheostomy. This is a difficult situation. This patient has multiple comorbidities. He is not a candidate for surgery. I will discuss this case with radiation oncology to see whether any palliative radiation treatments could be given. I am less optimistic as the mass involves the same field where radiation was given previously. He would also be a poor candidate for any chemotherapy. Currently he is quite deconditioned and weak. Any salvage chemotherapy would only be given if his performance status improves. He does have baseline chronic kidney disease and he has a history of coronary artery disease. I discussed this at length with the patient and his . At this time we should focus on nutrition and physical therapy. He will follow up with me in the clinic once he is discharged from the hospital. Prior to his discharge I will ask radiation oncology to see this patient. 2. Dysphagia. Currently he has a PEG tube in place. 3. Microcytic anemia. We will obtain anemia studies. If he is iron deficient he will benefit from iron infusion. 4. Malnutrition and deconditioning. Dietitian consult and physical therapy. Thank you for allowing me to participate in the care of this patient. I will continue to follow this patient along. MD VANCE Lima/BIGG /9:25 PM /10:21 PM
[2017-02-26] VITALS (14 sets, daily range): BP systolic 141–179; BP diastolic 78–88; PULSE 81–102; RESP 12–15; TEMP 98.1–99.1; O2SAT 97–100
[2017-02-26] MEDS: CHLORHEXIDINE GLUCONATE 2 % 1 PACK (2 CLOTHS) TOP SCH (02:21)
[2017-02-26] MEDS: oxyCODONE HCL ORAL CONC 20 MG/ML SYRINGE PO PRN ×3 (03:17→21:31)
[2017-02-26 03:54] LABS: HEMATOCRIT 28.8 % (39.0-51.0); MEAN CELL VOLUME 77.2 FL (80.0-100.0); MEAN CORPUSCULAR HEMOGLOBIN 24.7 PG (27.0-34.0); PLATELET COUNT 332 TH/MM3 (150-450); RED BLOOD COUNT 3.73 MIL/MM3 (4.50-5.90); RED CELL DISTRIBUTION WIDTH 16.9 % (11.6-17.2); REVIEW FLAG FINAL; WHITE BLOOD COUNT 11.1 TH/MM3 (4.0-11.0)
[2017-02-26 04:04] LABS: APTT (PATIENT) 37.3 SEC (24.3-30.1); INTERNATIONAL NORMALIZED RATIO 1.3 RATIO; PROTHROMBIN TIME - PATIENT 14.4 SEC (9.8-11.6)
[2017-02-26 04:16] LABS: ANION GAP 7 MEQ/L (5-15); BICARBONATE 26.7 MEQ/L (21.0-32.0); BLOOD UREA NITROGEN 32 MG/DL (7-18); CHLORIDE 109 MEQ/L (98-107); GLOMERULAR FILTRATION RATE 46 ML/MIN (>89); POTASSIUM 4.4 MEQ/L (3.5-5.1); SODIUM (NA) 143 MEQ/L (136-145)
[2017-02-26 04:41] LABS: TRANSFERRIN IRON PROFILE 114 MG/DL (200-360)
[2017-02-26] MEDS: INSULIN ASPART SUPPLEMENTAL SCALE SQ SCH ×4 (06:50→21:00)
[2017-02-26] MEDS: DOCUSATE SODIUM 50 MG/SENNA 8.6 MG TAB PO SCH ×2 (08:21→21:32)
[2017-02-26] MEDS: SODIUM BICARBONATE 325 MG TAB PO SCH ×2 (08:21→21:32)
[2017-02-26] MEDS: PANTOPRAZOLE SODIUM 40 MG VIAL IV SCH (08:21)
[2017-02-26] MEDS: GABAPENTIN 300 MG CAP PO SCH ×2 (08:21→21:32)
[2017-02-26] MEDS: LORATADINE 10 MG TAB PO SCH (08:21)
[2017-02-26] MEDS: PANTOPRAZOLE SOD 40 MG DELAYED RELEASE TAB PO SCH (08:21)
[2017-02-26] MEDS: TIOTROPIUM BROMIDE 18 MCG INH INH SCH (08:21)
[2017-02-26] MEDS: MAGNESIUM HYDROXIDE SUSP 30 ML CUP PO PRN (08:22)
[2017-02-26] MEDS: SODIUM CHLOR 0.9% 1000 ML INJ 1,000 ML IV SCH ×2 (08:22→21:37)
--- NOTE | 2017-02-26 08:25 | MB ---
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 He was subsequently seen in [place] for reasons which are unclear. He received a single modality radiation treatment. According to Dr. Melchor's note, this gentleman had a good response without evidence of residual disease. Unfortunately, he developed some swallowing issues and has required PEG tube feeding. More recently, he was in [facility] with dysphagia. A CT scan of the neck at that time revealed evidence of recurrent disease. There was a mass on the right, but appears to measure 4.2 cm in AP diameter, 3.7 in transverse dimension at the level of the hyoid bone extending inferiorly at the level of the thyroid cartilage. There appears to be some post radiation change. There was displacement of the airway at the level of the larynx and induration of the subcutaneous soft tissues. This was thought to be recurrent tumor and a PET study was recommended. This gentleman intended to be seen at the [facility], however, he became more dyspneic and was admitted to the hospital where he has undergone a tracheostomy. We are now being asked to see him for consideration of additional radiation treatment and to discuss his treatment options. This gentleman presently has a tracheostomy in place. He is not able to verbalize as his tracheostomy is intubated at the present time. Nevertheless, he is alert and oriented. REVIEW OF SYSTEMS Apart from difficulty swallowing and respiratory distress has been negative as pointed out in the EMR. PAST MEDICAL HISTORY Includes: 1. Larynx cancer treated with radiation treatment which was completed in November or December 2015 at [facility]. 2. Hyperlipidemia 3. Depression 4. Congestive heart failure 5. COPD 6. Previous CVA 7. Gastroesophageal reflux disease 8. Hypertension 9. Recent tracheostomy 10. Peripheral vascular disease having had previous vascular surgery 11. Cholecystectomy 12. Coronary artery bypass grafting and coronary artery stenting. ALLERGIES STATINS, NIACIN AND FISH OIL MEDICATIONS Have included: 1. Spiriva 2. Protonix 3. Cymbalta 4. Neurontin 5. Oxycodone FAMILY HISTORY AND SOCIAL HISTORY He is . He has previously smoked, but has discontinued this. He denies alcohol intake. Family history is otherwise noncontributory. PHYSICAL EXAM Today on exam, he is status post tracheostomy insertion and is currently being ventilated. VITAL SIGNS: His pulse was 97 and regular, blood pressure 168/78, his pulse oximetry at the present time his 98. HEAD, EYES, EARS, NOSE, AND THROAT: There was no jaundice. His conjunctive and eyelids were normal. He had full EOMs. There is no adenopathy palpable in his head and neck. He has a tracheostomy in place in the low neck. LUNGS: His lung seo were clear. HEART: His heart sounds were normal. ABDOMEN: No abdominal masses, tenderness, or hepatomegaly. REVIEW OF DATA Today I have reviewed this gentleman's CT scan of the soft tissue head and neck performed on 02/17/2017. He has a soft tissue mass as described above. This is causing airway obstruction with distortion of the airway being pushed to the left. He has thyroid cartilage destruction on the right side with locally extensive recurrent disease. It is not clear that he has any abnormal adenopathy and no further metastatic workup has been performed. I have reviewed with this gentleman the current findings. I have told him that we believe he has recurrent disease and that the only potentially curative treatment is surgical. He was planning on being assessed at the [facility] but this illness has apparently upset those plans. He is apparently well-known at [facility] and that would be another option. I think it would be important for him to be reviewed for consideration of surgical excision as this is the only potentially curable approach. If surgery is not considered an option, then I think he should be considered for retreatment with radiation treatment in conjunction with chemotherapy or possibly Erbitux if he is not thought to be a candidate for chemotherapy. This would not be curative. It would likely cause local destruction of the laryngeal structures necessitating a permanent tracheostomy, but it would be my impression that his tracheostomy is going to be permanent no matter which approach he uses. Retreatment with radiation in head and neck cancers has fairly extensive experience. It can be treated on a b.i.d. basis or once a day depending on the patients abilities to come in for treatment on a frequent basis. It is associated with a high risk of complications, but these are thought to be manageable and appropriate based on the situation that the patient has been in. His other option would be to consider chemotherapy alone in which we would hope that he would at least have a temporary response. Nevertheless, the only potentially curative approach is with surgery and I think it would be reasonable to have him reviewed for this unless he does not wish to consider it. I have discussed all of this with him. It would be appropriate for him to have a PET/CT scan on discharge and then to be reassessed as indicated. We are happy to see him and deliver treatment if that proves to be his best approach. MD MERISSA Arrington/AMINATA /7:59 AM /8:17 AM
[2017-02-26] MEDS ORDERED: ONDANSETRON HCL 4 MG/2 ML VIAL IV PUSH PRN (11:30)
--- NOTE | 2017-02-26 11:52 | HHI.PR ---
Subjective Remarks No active bleed. Unable to tolerate PO intake yet based on ST assessment. He is starting to ambulate with PT. No new complaints. We discussed blood thinners. He is previously on aspirin, plavix, and coumadin. Aspirin and plavix are related to a history of CAD and PAD with bilateral leg stents and coronary stents. He has a history of DVT and was left on coumadin as a preventative treatment for this. Objective Vital Signs Date Time Temp Pulse Resp B/P Pulse Ox O2 Delivery O2 Flow Rate FiO2 02/26/17 10:00 88 02/26/17 08:00 102 02/26/17 08:00 98.8 102 14 141/88 97 02/26/17 07:48 100 T-piece 02/26/17 07:00 T-Piece 02/26/17 06:00 97 02/26/17 04:17 13 02/26/17 04:00 98.3 86 14 168/78 98 02/26/17 04:00 97 02/26/17 02:00 97 02/26/17 00:00 98.1 96 13 159/80 98 02/26/17 00:00 97 02/25/17 22:00 97 02/25/17 20:00 98.8 83 12 152/72 98 02/25/17 20:00 T-Piece 02/25/17 20:00 97 02/25/17 19:48 98 T-piece 02/25/17 18:00 88 02/25/17 16:00 89 02/25/17 16:00 98.0 89 14 161/79 99 02/25/17 14:00 92 02/25/17 12:00 91 02/25/17 12:00 98.0 97 18 164/77 97 I/O 02/25/17 02/25/17 02/25/17 02/26/17 02/26/17 02/26/17 07:00 15:00 23:00 07:00 15:00 23:00 Intake Total 1116 ml 1156 ml 1195 ml 1170 ml Output Total 500 ml 400 ml 500.0 ml 275.0 ml 0 ml Balance 616 ml 756 ml 695.0 ml 895.0 ml 0 ml Intake IV Total 732 ml 728 ml 682 ml 707 ml Tube Feeding 324 ml 428 ml 453 ml 403 ml Tube Irrigant 60 ml 60 ml 60 ml Output Urine Total 500 ml 400 ml 300 ml 175 ml Tube Feeding Residual Discard 0 ml 0 ml 200.0 ml 100.0 ml 0 ml # Bowel Movements 0 0 0 0 Result Diagram: 02/26/1730602/26/17306 Objective Remarks GENERAL: NAD, A&Ox3 HEAD: Normocephalic. NECK: Supple, trachea midline. No lymphadenopathy. Tracheostomy in place, no signs of active bleeding. EYES: No scleral icterus. No injection or drainage. CARDIOVASCULAR: Regular rate and rhythm without murmurs, gallops, or rubs. RESPIRATORY: Breath sounds equal bilaterally. No accessory muscle use. GASTROINTESTINAL: Abdomen soft, non-tender, nondistended. MUSCULOSKELETAL: No cyanosis, or edema. SKIN: Warm and dry. NEURO: No focal neurological deficitis. Medications and IVs Administered Medications Medications (Trade) Dose Ordered Sig/Alea Route PRN Reason Start Time Stop Time Status Last Admin Dose Admin Sodium Chloride (NS 1000 ml Inj) 1,000 ml @ 84 mls/hr [id number] IV 02/22/17 22:10 02/26/17 08:22 Pantoprazole Sodium (Protonix Inj) 40 mg DAILY IV 02/23/17 09:00 02/26/17 08:21 Miscellaneous Information 1 Q361D XX 02/22/17 22:15 02/22/17 22:15 Chlorhexidine Gluconate (Chlorhexidine 2% Cloth) 3 pack Taper DAILY@04 TOP 02/23/17 04:00 02/19/18 03:59 02/26/17 02:21 Senna/Docusate Sodium (Genoveva-Colace) 1 tab BID PO 02/23/17 09:00 02/26/17 08:21 Magnesium Hydroxide (Milk Of Magnesia Liq) 30 ml Q12H PRN PO MILD - MODERATE CONSTIPATION 02/22/17 22:15 02/26/17 08:22 Duloxetine HCl (Cymbalta Dr) 30 mg HS PO 02/23/17 21:00 02/25/17 20:10 Gabapentin (Neurontin) 300 mg BID PO 02/23/17 21:00 02/26/17 08:21 Loratadine (Claritin) 10 mg DAILY PO 02/24/17 09:00 02/26/17 08:21 Sodium Bicarbonate (Sodium Bicarbonate) 325 mg Q12HR PO 02/23/17 21:00 02/26/17 08:21 Tiotropium [place] (Spiriva Inh) 18 mcg DAILY INH 02/24/17 09:00 02/26/17 08:21 Oxycodone HCl (Roxicodone Intensol Liq) 10 mg Q4H PRN PO pain 1-5 02/23/17 16:00 02/26/17 03:17 A/P Problem List: (1) Laryngeal cancer ICD Code: C32.9 (2) Weakness ICD Code: R53.1 (3) Airway obstruction ICD Code: J98.8 (4) Stenosis of right carotid artery ICD Code: I65.21 (5) Diabetes mellitus ICD Code: E11.9 (6) ROSALINO (acute kidney injury) ICD Code: N17.9 Assessment and Plan Assessment and Plan 66-year-old male status post tracheostomy placement. Tracheostomy placed secondary to airway obstruction from bleeding into laryngeal mass. Recovering well postprocedure. No signs of further bleeding. Plan to resume plavix tomorrow. No resumption for coumadin planned, I am scanning his lower extremities to ensure DVT is resolved. I don't have an immediate plan to resume aspirin due to added bleed risk and possible surgical intervention at . Laryngeal cancer with acute hematoma and airway obstruction Status post tracheostomy Transferred to medical surgical floor Plan to resume Coumadin greater than 48 hours after surgery (done yesterday), so this should resume the a.m. of 02/26/17 Continue feeds via feeding tube Physical therapy Speech therapy Right internal carotid artery stenosis Appears to be nearly fully included CT angiography once patient is stable Acute kidney injury Likely related to relative dehydration to acute phase of admit Improving through time Continue IV hydration and tube feeding hydration Follow renal function Diabetes mellitus type 2 Insulin sliding scale Follow blood sugars Patient is currently on tube feeds Peripheral artery disease Coronary artery disease Follow clinically No chest pain Resumption of Coumadin planned as above Global weakness Physical therapy DVT prophylaxis On Coumadin Dion Fox MD Feb 26, 2017 11:52
--- NOTE | 2017-02-26 13:37 | PD.ONC.PN ---
Subjective Subjective Remarks Afebrile overnight. Resting comfortably. Had residuals so TF was reduced to 20cc/hr today. hospitalist ordered u/s lower extremities for h/o DVT, patient denies any acute swelling. Objective Data Date Time Temp Pulse Resp B/P Pulse Ox O2 Delivery O2 Flow Rate FiO2 02/26/17 12:00 81 02/26/17 12:00 98.7 93 15 164/81 100 02/26/17 10:00 88 02/26/17 08:00 102 02/26/17 08:00 98.8 102 14 141/88 97 02/26/17 07:48 100 T-piece 28 02/26/17 07:00 T-Piece 02/26/17 06:00 97 02/26/17 04:17 13 02/26/17 04:00 98.3 86 14 168/78 98 02/26/17 04:00 97 02/26/17 02:00 97 02/26/17 00:00 98.1 96 13 159/80 98 02/26/17 00:00 97 02/25/17 22:00 97 02/25/17 20:00 98.8 83 12 152/72 98 02/25/17 20:00 T-Piece 28 02/25/17 20:00 97 02/25/17 19:48 98 T-piece 02/25/17 18:00 88 02/25/17 16:00 89 02/25/17 16:00 98.0 89 14 161/79 99 02/25/17 14:00 92 02/26/17 02/26/17 02/26/17 07:00 15:00 23:00 Intake Total 1170 ml Output Total 275.0 ml 0 ml Balance 895.0 ml 0 ml Result Diagram: 02/26/17 0307 02/26/17 0307 Laboratory Results Laboratory Tests Test 02/26/17 03:07 White Blood Count 11.1 TH/MM3 Red Blood Count 3.73 MIL/MM3 Hemoglobin 9.2 GM/DL Hematocrit 28.8 % Mean Corpuscular Volume 77.2 FL Mean Corpuscular Hemoglobin 24.7 PG Mean Corpuscular Hemoglobin 32.0 % Concent Red Cell Distribution Width 16.9 % Platelet Count 332 TH/MM3 Mean Platelet Volume 8.9 FL Prothrombin Time 14.4 SEC Prothromb Time International 1.3 RATIO Ratio Activated Partial 37.3 SEC Thromboplast Time Sodium Level 143 MEQ/L Potassium Level 4.4 MEQ/L Chloride Level 109 MEQ/L Carbon Dioxide Level 26.7 MEQ/L Anion Gap 7 MEQ/L Blood Urea Nitrogen 32 MG/DL Creatinine 1.52 MG/DL Estimat Glomerular Filtration 46 ML/MIN Rate Random Glucose 195 MG/DL Calcium Level 8.3 MG/DL Iron Level 19 MCG/DL Total Iron Binding Capacity 160 MCG/DL Percent Iron Saturation 11.9 % Transferrin 114 MG/DL Vitamin B12 Level 504 PG/ML Administered Medications Medications (Trade) Dose Ordered Sig/Alea Route PRN Reason Start Time Stop Time Status Last Admin Dose Admin Sodium Chloride (NS 1000 ml Inj) 1,000 ml @ 84 mls/hr [id number] IV 02/22/17 22:10 02/26/17 08:22 Pantoprazole Sodium (Protonix Inj) 40 mg DAILY IV 02/23/17 09:00 02/26/17 08:21 Miscellaneous Information 1 Q361D XX 02/22/17 22:15 02/22/17 22:15 Chlorhexidine Gluconate (Chlorhexidine 2% Cloth) 3 pack Taper DAILY@04 TOP 02/23/17 04:00 02/19/18 03:59 02/26/17 02:21 Senna/Docusate Sodium (Genoveva-Colace) 1 tab BID PO 02/23/17 09:00 02/26/17 08:21 Magnesium Hydroxide (Milk Of Magnesia Liq) 30 ml Q12H PRN PO MILD - MODERATE CONSTIPATION 02/22/17 22:15 02/26/17 08:22 Lactulose (Lactulose Liq) 30 ml DAILY PRN PO SEVERE CONSITIPATION 02/22/17 22:15 02/26/17 12:27 Duloxetine HCl (Cymbalta Dr) 30 mg HS PO 02/23/17 21:00 02/25/17 20:10 Gabapentin (Neurontin) 300 mg BID PO 02/23/17 21:00 02/26/17 08:21 Loratadine (Claritin) 10 mg DAILY PO 02/24/17 09:00 02/26/17 08:21 Sodium Bicarbonate (Sodium Bicarbonate) 325 mg Q12HR PO 02/23/17 21:00 02/26/17 08:21 Tiotropium [place] (Spiriva Inh) 18 mcg DAILY INH 02/24/17 09:00 02/26/17 08:21 Oxycodone HCl (Roxicodone Intensol Liq) 10 mg Q4H PRN PO pain 1-5 02/23/17 16:00 02/26/17 12:27 Objective Remarks GENERAL: Weak male, supine in bed, sleeping on approach but awakens when I walk in. SKIN: Warm and dry. HEAD: Normocephalic. EYES: No injection or drainage. NECK: Supple, trachea midline. trach in place, on 28% FiO2 via t-piece. CARDIOVASCULAR: Regular rate and rhythm without murmurs. RESPIRATORY: anterior seo clear. GASTROINTESTINAL: Abdomen soft, non-tender, nondistended. EXTREMITIES: No cyanosis NEUROLOGICAL: awake and alert, able to move extremities. 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 --has a fairly large sized mass in his larynx which is occluding the airway. --status post tracheostomy. . --has multiple comorbidities. not a candidate for surgery. --palliative radiation treatments could be given. --poor candidate for any chemotherapy. --At this time we should focus on nutrition and physical therapy. --will follow up with Dr. Melchor in the clinic once he is discharged from the hospital. (2) Dysphagia Status: Chronic Plan: --has a PEG tube in place. --currently on Jevity, peer specialist recommends Suplena --peer specialist following: Rec Tf'ing w/Suplena @ goal rate 55ml/hr to offer 2376 kcal, 59.4g Protein and 974ml free water. Monitor wt closely. Labs reviewed- monitor renal labs closely. (3) Microcytic anemia Status: Acute Plan: --iron studies show low iron --B12 WNL --may benefit from IV iron Assessment 66-year-old male who has a history of upper airway carcinoma. He is status post single modality treatment with radiation in 2016. He now presents with upper airway compromise with an enlarging mass. s/p tracheostomy, 02/23 History of laryngeal carcinoma. Hyperlipidemia. Depression. Congestive heart failure. Chronic obstructive pulmonary disease. Cerebrovascular accident. Gastroesophageal reflux disease. Hypertension. Plan 1. start Suplena for TF per peer specialist recommendations 2. continue PT 3. monitor CBC 4. await venous doppler ultrasound, BLE, check for DVT (patient has h/o DVT) Attending Statement The exam, history, and the medical decision-making described in the above note were completed with the assistance of the mid-level provider. I reviewed and agree with the findings presented. I attest that I had a [id number] encounter with the patient on the same day, and personally performed and documented my assessment and findings in the medical record continue to optimize nutrition Iron deficient. will give iron infusion doppler U/S of LE shows lower ext superficial DVT was on Coumadin prior to admission start Heparin GTT d.w rn will need O/P eval by ENT at [facility] for possibility of surgery If not a candidate then will consider palliative XRT with Cetuximab Neeru Pritchett Feb 26, 2017 13:37 Perico Melchor MD Feb 26, 2017 23:41
[2017-02-26] MEDS: ENALAPRILAT 1.25 MG/ML VIAL IV PUSH PRN ×2 (16:10→17:09)
--- NOTE | 2017-02-26 16:13 | RADRPT ---
EXAM DATE/TIME: 02/25/2017 15:35 [place] COMPARISON: No previous studies available for comparison. INDICATIONS : History of deep vein thrombosis. MEDICAL HISTORY : Congestive heart failure. Myocardial infarction. Peripheral vascular disease. Laryngeal cancer. TIA. Peripheral neuropathy. CAD. Hypercholesterolemia. Hyperlipidemia. HTN. COPD. Dyspnea. Hemoptysis. NERIS D. Mumps. Polycystic kidney disease. Renal calculi. Fibromyalgia. Restless leg syndrome. Gout. Arthr itis. Diabetes. Depression. Anxiety. Hay fever. Anticoagulant therapy, Plavix/Coumadin. SURGICAL HISTORY : Tonsillectomy.CABG Coronary artery stent.Throat dialation. Bilateral femoral stents. Coronary angio. Cardiac cath. Cholecystectomy. Left shoulder screws. Chemotherapy. Radiation therapy. Blood transfusi ons. ENCOUNTER: Initial ACUITY: 1 day PAIN SCORE: 3/10 LOCATION: Bilateral leg. TECHNIQUE: Venous ultrasound of the left and right leg was performed from the inguinal ligament to the proximal calf. Real-time, color Doppler and spectral tracing, compression and augmentation techniques were us ed. FINDINGS: RIGHT LEG: There is normal compressibility of the deep venous system from the inguinal region to the proximal ca lf. No echogenic clot is seen in the lumen of the common femoral, femoral, popliteal, and posterior tibial veins. There is a normal response of the venous system to proximal and distal augmentation an d respiration. LEFT LEG: There is thrombus in the left greater saphenous vein. The deep venous system is patent. CONCLUSION: Superficial thrombosis on the left. The deep venous system is patent bilaterally. Bobby Coto MD FACR on February 26, 2017 at 16:09 Board Certified Radiologist. This report was verified electronically.
[2017-02-26] MEDS: DULoxetine HCl DR 30 MG CAP PO SCH (21:31)
[2017-02-27] VITALS (9 sets, daily range): BP systolic 124–180; BP diastolic 65–93; PULSE 98–118; RESP 16–20; TEMP 97.8–99; O2SAT 94–100
[2017-02-27] MEDS: CHLORHEXIDINE GLUCONATE 2 % 1 PACK (2 CLOTHS) TOP SCH (04:00)
[2017-02-27 05:49] LABS: HEMATOCRIT 29.9 % (39.0-51.0); MEAN CELL VOLUME 77.9 FL (80.0-100.0); MEAN CORPUSCULAR HEMOGLOBIN 24.9 PG (27.0-34.0); PLATELET COUNT 341 TH/MM3 (150-450); RED BLOOD COUNT 3.84 MIL/MM3 (4.50-5.90); RED CELL DISTRIBUTION WIDTH 16.8 % (11.6-17.2); REVIEW FLAG FINAL; WHITE BLOOD COUNT 17.3 TH/MM3 (4.0-11.0)
[2017-02-27 06:08] LABS: APTT (PATIENT) 33.8 SEC (24.3-30.1); INTERNATIONAL NORMALIZED RATIO 1.2 RATIO; PROTHROMBIN TIME - PATIENT 12.8 SEC (9.8-11.6)
[2017-02-27 06:14] LABS: POTASSIUM 4.7 MEQ/L (3.5-5.1)
[2017-02-27] MEDS: INSULIN ASPART SUPPLEMENTAL SCALE SQ SCH ×4 (07:00→20:41)
[2017-02-27] MEDS: TIOTROPIUM BROMIDE 18 MCG INH INH SCH (09:00)
[2017-02-27] MEDS: SODIUM CHLOR 0.9% 1000 ML INJ 1,000 ML IV SCH ×2 (09:25→20:49)
[2017-02-27] MEDS: SODIUM BICARBONATE 325 MG TAB PO SCH ×2 (09:29→20:46)
[2017-02-27] MEDS: CLOPIDOGREL 75 MG TAB PO SCH (09:29)
[2017-02-27] MEDS: IRON SUCROSE INJ 200 MG in SODIUM CHLORIDE 0.9% INJ 100 ML IV SCH (09:29)
[2017-02-27] MEDS: PANTOPRAZOLE SOD 40 MG DELAYED RELEASE TAB PO SCH (09:30)
[2017-02-27] MEDS: LORATADINE 10 MG TAB PO SCH (09:30)
[2017-02-27] MEDS: DOCUSATE SODIUM 50 MG/SENNA 8.6 MG TAB PO SCH ×2 (09:30→20:46)
[2017-02-27] MEDS: GABAPENTIN 300 MG CAP PO SCH ×2 (09:30→20:46)
[2017-02-27] MEDS: PANTOPRAZOLE SODIUM 40 MG VIAL IV SCH (09:33)
--- NOTE | 2017-02-27 10:40 | HHI.PR ---
Subjective Remarks Follow-up for recurrence of laryngeal cancer Patient appears very weak in bed and had no complaints. He denies any shortness of breathing. His nurse is at the bedside and he also has no complaints. Objective Vitals Vital Signs Date Time Temp Pulse Resp B/P Pulse Ox O2 Delivery O2 Flow Rate FiO2 02/27/17 08:49 96 T-piece 5.00 28 02/27/17 08:11 98.4 98 16 124/71 94 02/27/17 04:15 98.1 107 18 180/86 100 02/27/17 00:00 98.4 118 18 140/80 97 02/26/17 23:23 18 02/26/17 22:40 86 02/26/17 20:07 98 T-piece 6.00 28 02/26/17 20:00 99.1 90 15 172/81 98 02/26/17 18:00 98 02/26/17 16:00 92 02/26/17 16:00 98.5 98 12 179/85 98 02/26/17 14:00 101 02/26/17 12:00 81 02/26/17 12:00 98.7 93 15 164/81 100 I/O 02/26/17 02/26/17 02/26/17 02/27/17 02/27/17 02/27/17 07:00 15:00 23:00 07:00 15:00 23:00 Intake Total 1170 ml 740 ml Output Total 275.0 ml 0 ml 0 ml Balance 895.0 ml 740 ml 0 ml Intake IV Total 707 ml 571 ml Tube Feeding 403 ml 109 ml Tube Irrigant 60 ml 60 ml Output Urine Total 175 ml Tube Feeding Residual Discard 100.0 ml 0 ml 0 ml # Voids 1 1 1 # Bowel Movements 0 1 Result Diagram: 02/27/17 0526 02/27/17 0526 Imaging Last Impressions Lower Extremity Ultrasound 02/26/17 0000 Signed Impressions: Service Date/Time: Saturday, February 25, 2017 15:35 - CONCLUSION: Superficial thrombosis on the left. The deep venous system is patent bilaterally. Bobby Coto MD FACR Chest X-Ray 02/23/17 0000 Signed Impressions: Service Date/Time: Thursday, February 23, 2017 13:35 - CONCLUSION: Tracheostomy tube in good position. Tomi Bush MD Objective Remarks GENERAL: NAD, A&Ox3 HEAD: Normocephalic. NECK: Supple, trachea midline. No lymphadenopathy. Tracheostomy in place, no signs of active bleeding. EYES: No scleral icterus. No injection or drainage. CARDIOVASCULAR: Regular rate and rhythm without murmurs, gallops, or rubs. RESPIRATORY: Breath sounds equal bilaterally. No accessory muscle use. GASTROINTESTINAL: Abdomen soft, non-tender, nondistended. MUSCULOSKELETAL: No cyanosis, or edema. SKIN: Warm and dry. NEURO: No focal neurological deficits. Medications and IVs Current Medications Sodium Chloride (NS 1000 ml Inj) 1,000 ml @ 84 mls/hr [id number] IV Last administered on 02/26/17 21:37; Start 02/22/17 at 22:10 Pantoprazole Sodium (Protonix Inj) 40 mg DAILY IV Last administered on 09:33; Start 02/23/17 at 09:00 Miscellaneous Information 1 Q361D XX Last administered on 02/22/17 22:15; Start 02/22/17 at 22:15 Chlorhexidine Gluconate (Chlorhexidine 2% Cloth) 3 pack Taper DAILY@04 TOP Last administered on 02/27/17 04:00; Start 02/23/17 at 04:00; Stop 02/19/18 at 03:59 Chlorhexidine Gluconate (Chlorhexidine 2% Cloth) 3 pack UNSCH PRN TOP HYGIENIC CARE; Start 02/22/17 at 22:15 Senna/Docusate Sodium (Genoveva-Colace) 1 tab BID PO Last administered on 09:30; Start 02/23/17 at 09:00 Magnesium Hydroxide (Milk Of Magnesia Liq) 30 ml Q12H PRN PO MILD - MODERATE CONSTIPATION Last administered on 02/26/17 08:22; Start 02/22/17 at 22:15 Sennosides (Senokot) 17.2 mg Q12H PRN PO MODERATE - SEVERE CONSTIPATION; Start 02/22/17 at 22:15 Bisacodyl (Dulcolax Supp) 10 mg DAILY PRN RECTAL SEVERE CONSITIPATION; Start at 22:15 Lactulose (Lactulose Liq) 30 ml DAILY PRN PO SEVERE CONSITIPATION Last administered on 02/26/17t 12:27; Start 02/22/17 at 22:15 Midazolam HCl (Versed Inj) 5 mg ONCE ONCE IM ; Start 02/22/17 at 22:45; Stop at 22:54; Status DC Fentanyl Citrate (fentaNYL INJ) 100 mcg ONCE ONCE IM ; Start 02/22/17 at 22:45 ; Stop 02/22/17 at 22:54; Status DC Terbutaline Sulfate 1 mg 1 mg UNSCH PRN SQ For Extravasation; Start 02/22/17 at 22:45 Phenylephrine HCl/ Dextrose (Neosynephrine Inj/D5W 500 ml Inj) 500 ml @ 0 mls/ hr TITRATE IV ; Start 02/22/17 at 22:45 Magnesium Oxide 800 mg 800 mg UNSCH PRN PO For Magnesium 1.2 - 1.6 mg/dL; Start 02/23/17 at 10:45 Magnesium Sulfate 4 gm/Sodium Chloride 100 ml @ 50 mls/hr UNSCH PRN IV For Magnesium 0.9 - 1.1 mg/dL; Start 02/23/17 at 10:45 Magnesium Sulfate 2 gm/Sodium Chloride 100 ml @ 50 mls/hr UNSCH PRN IV For Magnesium 1.2 - 1.6 mg/dL; Start 02/23/17 at 10:45 Potassium Chloride 100 ml @ 50 mls/hr Q2H PRN IV For Potassium 2.8 - 3.2 mEq/L ; Start 02/23/17 at 10:45 Potassium Chloride 100 ml @ 50 mls/hr Q2H PRN IV For Potassium 3.3 - 3.5 mEq/L ; Start 02/23/17 at 10:45 Potassium Chloride 100 ml @ 50 mls/hr Q2H PRN IV For Potassium 2.8 - 3.2 mEq/L ; Start 02/23/17 at 10:45 Potassium Chloride (KCl 40 Meq Premix Inj) 100 ml @ 25 mls/hr UNSCH PRN IV For Potassium 3.3 - 3.5 mEq/L; Start 02/23/17 at 10:45 Potassium Phosphate (K-Phos) 2,000 mg Q4H PRN PO For Phosphorus < 2.5 mg/dL; Start 02/23/17 at 10:45 Potassium Phosphate 2000 mg 2,000 mg UNSCH PRN PO/TUBE SEE LABEL COMMENTS; Start 02/23/17 at 10:45 Potassium Phosphate 30 mmol/ Sodium Chloride 260 ml @ 42 mls/hr UNSCH PRN IV SEE LABEL COMMENTS; Start 02/23/17 at 10:45 Sodium Phosphate/ Sodium Chloride (Sodium Phosphate Inj/NS 250 ml Inj) 250 ml @ 42 mls/hr UNSCH PRN IV For Phosphorus < 2.5 mg/dL; Start 02/23/17 at 10:45 Duloxetine HCl (Cymbalta Dr) 30 mg HS PO Last administered on 02/26/17 21:31; Start 02/23/17 at 21:00 Gabapentin (Neurontin) 300 mg BID PO Last administered on 02/27/17 09:30; Start 02/23/17 at 21:00 Loratadine (Claritin) 10 mg DAILY PO Last administered on 02/27/17 09:30; Start 02/24/17 at 09:00 Pantoprazole Sodium (Protonix) 40 mg DAILY PO Last administered on 02/27/17 09 :30; Start 02/24/17 at 09:00 Sodium Bicarbonate (Sodium Bicarbonate) 325 mg Q12HR PO Last administered on 09:29; Start 02/23/17 at 21:00 Tiotropium [place] (Spiriva Inh) 18 mcg DAILY INH Last administered on 08:21; Start 02/24/17 at 09:00 Midazolam HCl (Versed Inj) 2 mg STK-MED ONCE .ROUTE ; Start 02/23/17 at 12:07; Stop 02/23/17 at 12:08; Status DC Ketamine HCl 500 mg 500 mg STK-MED ONCE .ROUTE ; Start 02/23/17 at 12:08; Stop 02/23/17 at 12:09; Status DC Sodium Bicarbonate (Sodium Bicarbonate 8.4% Inj) 50 ml @ As Directed STK-MED ONCE .ROUTE ; Start 02/23/17 at 12:17; Stop 02/23/17 at 12:18; Status DC Bupivacaine HCl/ Epinephrine Bitart (Sensorcaine-Epinephrine Pf 0.5% Inj) 30 ml STK-MED ONCE .ROUTE ; Start 02/23/17 at 12:18; Stop 02/23/17 at 12:19; Status DC Lidocaine HCl (Xylocaine 1% Inj (50 ml)) 50 ml STK-MED ONCE .ROUTE ; Start 02/23 at 12:18; Stop 02/23/17 at 12:19; Status DC Lidocaine/ Epinephrine (Xylocaine-Epi 1%-1:100,000 Inj) 30 ml STK-MED ONCE INFIL Last administered on 02/23/17 12:36; Start 02/23/17 at 12:36; Stop 02/23 at 14:11; Status DC Lidocaine/ Epinephrine (Xylocaine-Epi Mpf 1.5%-1:200,000 Inj) 30 ml STK-MED ONCE INFIL Last administered on 02/23/17 12:36; Start 02/23/17 at 12:36; Stop 02/23/17 at 14:11; Status DC Oxycodone HCl (Roxicodone Intensol Liq) 10 mg Q4H PRN PO pain 1-5 Last administered on 02/26/17 21:31; Start 02/23/17 at 16:00 Dextrose (D50w (Vial) Inj) 50 ml UNSCH PRN IV HYPOGLYCEMIA-SEE COMMENTS; Start 02/24/17 at 12:45 Glucagon (Glucagon Inj) 1 mg UNSCH PRN OTHER HYPOGLYCEMIA-SEE COMMENTS; Start 02/24/17 at 12:45 Insulin Aspart (NovoLOG SUPPLEMENTAL SCALE) 1 ACHS SLIDING SCALE SQ Last administered on 02/27/17 07:00; Start 02/24/17 at 16:00 Albuterol/ Ipratropium (Duoneb Neb) 1 ampule Q6HR NEB PRN INH sob congestion; Start 02/25/17 at 09:00 Ondansetron HCl (Zofran Inj) 4 mg Q6HR PRN IV PUSH NAUSEA OR VOMITING; Start at 11:30 Enalaprilat (Vasotec Inj) 1.25 mg Q6H PRN IV PUSH SBP>160, DBP>90 Last administered on 02/26/17 17:09; Start 02/26/17 at 15:45 Clopidogrel Bisulfate 75 mg 75 mg DAILY PO Last administered on 02/27/17 09:29 ; Start 02/27/17 at 09:00 Iron Sucrose/ Sodium Chloride (Venofer Inj/NS Inj) 110 ml @ 110 mls/hr DAILY IV Last administered on 02/27/17 09:29; Start 02/27/17 at 09:00; Stop 7/1/17 at 09:59 A/P Assessment and Plan 66-year-old male who has recurrent laryngeal cancer status post tracheostomy placement. Tracheostomy placed secondary to airway obstruction from bleeding into laryngeal mass. Laryngeal cancer with acute hematoma and airway obstruction Status post tracheostomy Continue feeds via feeding tube Per dietitian recommends Tf'ing w/Suplena @ goal rate 55ml/hr to offer 2376 kcal , 59.4g Protein and 974ml free water. Monitor wt closely. Labs reviewed-monitor renal labs closely. At the moment patient is not at goal. Physical therapy Speech therapy Right internal carotid artery stenosis Appears to be nearly fully included from ultrasound. Recommended further workup with a CT angio. Avoiding and she will at the moment due to acute renal failure. Will consult vascular surgeon. I do not think patient would be a good candidate for any type of invasive procedure. Chronic kidney disease I personally reviewed patient's kidney function and this is his baseline. There is actual improvement from his previous creatinine/GFR. Avoid nephrotoxins. Diabetes mellitus type 2 Insulin sliding scale Follow blood sugars Patient is currently on tube feeds Peripheral artery disease Coronary artery disease Follow clinically No chest pain Will resume Coumadin. Global weakness Physical therapy History of DVT Bilateral Doppler repeated which shows a superficial thrombosis. Dealt with Sydnee from oncologist/capsule machine operator and stated that Dr. Melchor stated can resume Coumadin if okay with everybody else. DVT prophylaxis Will start Coumadin. Discharge Planning Patient is not tolerating tube feeds at the moment and he is not goal. He is also very fatigued due to his illness. He does not qualify for SNF placement due to insurance. Dealt with case management to see if he qualifies for CIR. At the moment I do not feel it is safe for patient to go home. Rachel Nieto MD Feb 27, 2017 10:40
--- NOTE | 2017-02-27 12:19 | PD.ONC.PN ---
Subjective Subjective Remarks Afebrile overnight. patient resting in bed. Daughter at bedside very concerned as she feels her father is "fatigued" and "just not himself today." Nurse at bedside states he has not noticed any changes. Objective Data Date Time Temp Pulse Resp B/P Pulse Ox O2 Delivery O2 Flow Rate FiO2 02/27/17 10:45 105 18 154/71 96 02/27/17 08:49 96 T-piece 5.00 28 02/27/17 08:11 98.4 98 16 124/71 94 02/27/17 04:15 98.1 107 18 180/86 100 02/27/17 00:00 98.4 118 18 140/80 97 02/26/17 23:23 18 02/26/17 22:40 86 02/26/17 20:07 98 T-piece 6.00 28 02/26/17 20:00 99.1 90 15 172/81 98 02/26/17 18:00 98 02/26/17 16:00 92 02/26/17 16:00 98.5 98 12 179/85 98 02/26/17 14:00 101 Result Diagram: 02/27/17 0526 02/27/17 0526 Laboratory Results Laboratory Tests Test 02/27/17 05:26 White Blood Count 17.3 TH/MM3 Red Blood Count 3.84 MIL/MM3 Hemoglobin 9.6 GM/DL Hematocrit 29.9 % Mean Corpuscular Volume 77.9 FL Mean Corpuscular Hemoglobin 24.9 PG Mean Corpuscular Hemoglobin 32.0 % Concent Red Cell Distribution Width 16.8 % Platelet Count 341 TH/MM3 Mean Platelet Volume 8.6 FL Prothrombin Time 12.8 SEC Prothromb Time International 1.2 RATIO Ratio Activated Partial 33.8 SEC Thromboplast Time Sodium Level 143 MEQ/L Potassium Level 4.7 MEQ/L Chloride Level 109 MEQ/L Carbon Dioxide Level 27.0 MEQ/L Anion Gap 7 MEQ/L Blood Urea Nitrogen 29 MG/DL Creatinine 1.51 MG/DL Estimat Glomerular Filtration 46 ML/MIN Rate Random Glucose 143 MG/DL Calcium Level 8.8 MG/DL Administered Medications Medications (Trade) Dose Ordered Sig/Alea Route PRN Reason Start Time Stop Time Status Last Admin Dose Admin Sodium Chloride (NS 1000 ml Inj) 1,000 ml @ 84 mls/hr [id number] IV 02/22/17 22:10 02/26/17 21:37 Pantoprazole Sodium (Protonix Inj) 40 mg DAILY IV 02/23/17 09:00 02/27/17 09:33 Miscellaneous Information 1 Q361D XX 02/22/17 22:15 02/22/17 22:15 Chlorhexidine Gluconate (Chlorhexidine 2% Cloth) 3 pack Taper DAILY@04 TOP 02/23/17 04:00 02/19/18 03:59 02/27/17 04:00 Senna/Docusate Sodium (Genoveva-Colace) 1 tab BID PO 02/23/17 09:00 02/27/17 09:30 Magnesium Hydroxide (Milk Of Magnesia Liq) 30 ml Q12H PRN PO MILD - MODERATE CONSTIPATION 02/22/17 22:15 02/26/17 08:22 Lactulose (Lactulose Liq) 30 ml DAILY PRN PO SEVERE CONSITIPATION 02/22/17 22:15 02/26/17 12:27 Duloxetine HCl (Cymbalta Dr) 30 mg HS PO 02/23/17 21:00 02/26/17 21:31 Gabapentin (Neurontin) 300 mg BID PO 02/23/17 21:00 02/27/17 09:30 Loratadine (Claritin) 10 mg DAILY PO 02/24/17 09:00 02/27/17 09:30 Pantoprazole Sodium (Protonix) 40 mg DAILY PO 02/24/17 09:00 02/27/17 09:30 Sodium Bicarbonate (Sodium Bicarbonate) 325 mg Q12HR PO 02/23/17 21:00 02/27/17 09:29 Tiotropium [place] (Spiriva Inh) 18 mcg DAILY INH 02/24/17 09:00 02/26/17 08:21 Oxycodone HCl (Roxicodone Intensol Liq) 10 mg Q4H PRN PO pain 1-5 02/23/17 16:00 02/26/17 21:31 Enalaprilat (Vasotec Inj) 1.25 mg Q6H PRN IV PUSH SBP>160, DBP>90 02/26/17 15:45 02/26/17 17:09 Clopidogrel Bisulfate 75 mg 75 mg DAILY PO 02/27/17 09:00 02/27/17 09:29 Iron Sucrose/ Sodium Chloride (Venofer Inj/NS Inj) 110 ml @ 110 mls/hr DAILY IV 02/27/17 09:00 03/01/17 09:59 02/27/17 09:29 Objective Remarks GENERAL: Weak male, upright in bed, appears fatigued but oriented. SKIN: Warm and dry. HEAD: Normocephalic. EYES: No injection or drainage. NECK: Supple, trachea midline. trach in place, on 28% FiO2 via t-piece. CARDIOVASCULAR: Regular rate and rhythm without murmurs. RESPIRATORY: anterior seo clear. diminished at bases. scattered rhonchi. GASTROINTESTINAL: Abdomen soft, non-tender, nondistended. receiving TF via PEG tube EXTREMITIES: No cyanosis NEUROLOGICAL: awake and alert, facial movements symmetric. oriented to time place and self. 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 --has a fairly large sized mass in his larynx which is occluding the airway. --status post tracheostomy. . --has multiple comorbidities. not a candidate for surgery. --palliative radiation treatments could be given. --poor candidate for any chemotherapy. --At this time we should focus on nutrition and physical therapy. --will follow up with Dr. Melchor in the clinic once he is discharged from the hospital. (2) Dysphagia Status: Chronic Plan: --has a PEG tube in place. 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 Monitor wt closely. Labs reviewed- monitor renal labs closely. (3) Microcytic anemia Status: Acute Plan: --iron studies show low iron --B12 WNL --IV iron sucrose ordered Assessment 66-year-old male who has a history of upper airway carcinoma. He is status post single modality treatment with radiation in 2016. He now presents with upper airway compromise with an enlarging mass. s/p tracheostomy, 02/23 History of laryngeal carcinoma. Hyperlipidemia. Depression. Congestive heart failure. Chronic obstructive pulmonary disease. Cerebrovascular accident. Gastroesophageal reflux disease. Hypertension. Plan 1. obtain CT brain for daughters concern of AMS. 2. ok to resume coumadin when cleared by other specialties. 3. monitor CBC Attending Statement The exam, history, and the medical decision-making described in the above note were completed with the assistance of the mid-level provider. I reviewed and agree with the findings presented. I attest that I had a [id number] encounter with the patient on the same day, and personally performed and documented my assessment and findings in the medical record d/w rn d/w team Neeru Pritchett Feb 27, 2017 12:19 Perico Melchor MD Feb 28, 2017 13:44
[2017-02-27 12:36] LABS: INDIRECT BILIRUBIN 0.3 MG/DL (0.0-0.8); TOTAL BILIRUBIN ADULT 0.5 MG/DL (0.2-1.0)
--- NOTE | 2017-02-27 14:12 | RADRPT ---
EXAM DATE/TIME: 02/27/2017 13:47 [facility] COMPARISON: CT BRAIN W/O CONTRAST, February 16, 2017, 15:25. INDICATIONS : Evaluate for altered mental status. RADIATION DOSE: 46.36 CTDIvol (mGy) MEDICAL HISTORY : Congestive heart failure. Chronic obstructive pulmonary disease. TIA 02/16/17, PVD, Polycystic Kidney Disease. SURGICAL HISTORY : Cholecystectomy. CABG carotid stent. Bilateral Femoral stents ENCOUNTER: Initial ACUITY: 1 day PAIN SCALE: 3/10 LOCATION: Bilateral cranial TECHNIQUE: Multiple contiguous axial images were obtained of the head. Using automated exposure control and adj ustment of the mA and/or kV according to patient size, radiation dose was kept as low as reasonably a chievable to obtain optimal diagnostic quality images. DICOM format image data is available electro nically for review and comparison. FINDINGS: CEREBRUM: Moderate cerebral atrophy is noted. Old lacunar infarcts are noted within the bilateral basal ganglia . No evidence of midline shift, mass lesion, hemorrhage or acute infarction. No extra-axial fluid co llections are seen. POSTERIOR FOSSA: The cerebellum and brainstem are intact. The 4th ventricle is midline. The cerebellopontine angle i s unremarkable. EXTRACRANIAL: The visualized portion of the orbits is intact. SKULL: The calvaria is intact. No evidence of skull fracture. CONCLUSION: 1. Moderate cerebral atrophy. 2. Old lacunar infarcts within the bilateral basal ganglia. 3. No acute infarct, acute hemorrhage, mass effect or extra-axial fluid collection. Bret Calderón MD on February 27, 2017 at 14:08 Board Certified Radiologist. This report was verified electronically.
--- NOTE | 2017-02-27 14:31 | RADRPT ---
EXAM DATE/TIME: 02/27/2017 13:37 [facility] COMPARISON: CHEST SINGLE AP, February 23, 2017, 13:35. INDICATIONS : Cough. MEDICAL HISTORY : Chronic obstructive pulmonary disease. Cardiovascular disease. SURGICAL HISTORY : CABG. ENCOUNTER: Subsequent ACUITY: 2 weeks PAIN SCORE: 0/10 LOCATION: Bilateral chest FINDINGS: A tracheostomy tube has its tip in good position 3 cm above the lucas. Perihilar streakiness is not ed consistent with atelectasis and/or minimal congestion. Median sternotomy wires are noted status p ost cardiac surgery. The heart is top normal in size. Minimal subcutaneous emphysema is again noted within the supraclavicular regions but is decreased. CONCLUSION: 1. Perihilar streakiness consistent with atelectasis and/or minimal congestion. Clinical correlation is recommended. 2. Interval slight decrease in the subcutaneous emphysema within the supraclavicular tissues sunshine young. Bret Calderón MD on February 27, 2017 at 14:21 Board Certified Radiologist. This report was verified electronically.
--- NOTE | 2017-02-27 14:55 | EKG ---
Date Performed: 02/27/2017 Time Performed: 11:44:18 PTAGE: 66 years EKG: SINUS TACHYCARDIA BORDERLINE LEFT AXIS DEVIATION NONSPECIFIC ST & T-WAVE ABNORMALITY ABNORM AL RHYTHM ECG PREVIOUS TRACING : 02/17/2017 03.03 DOCTOR: Estuardo Gaviria Interpretating Date/Time 02/27/2017 14:55:27
--- NOTE | 2017-02-27 15:08 | PD.VS.CON ---
History of Present Illness Chief Complaint: Stenosis of right internal carotid artery Consult Requested by: Dr. Nieto History of Present Illness As Written: 66 y/o man with severe upper airway obstruction exacerbated by bleeding laryngeal malignancy. CT neck reveals markedly narrowed upper airway. Complicating features include full anticoagulation with warfarin and plavix antiplatelet therapy. 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 Below the cancer and above the innominate artery is a window suitable for emergency percutaneous tracheostomy once coagulopathy is reversed. Past/Family/Social History Past Medical History Laryngeal Cancer Hyperlipidemia Coronary Artery Disease Congestive Heart Failure COPD DM GERD HTN IL CVA Peripheral Neuropathy CHF Polycystic Kidney Disease Renal failure Fibromyalgia Restless leg syndrome Gout Past Surgical History Cholecystectomy CABG Coronary Stents Tonsillectomy Oral Surgery Left Shoulder Surgery Social History Smoking cessation - 2008 - ETOH - Illicit drug usage Family History Coronary Artery Disease Home Medications Active Scripts Bedside Commode 1 Mis Mis #1 Ea .route As Directed Prov:Dion Fox MD 02/24/17 Warfarin (Coumadin)2 Mg Tab2 Mg PO DAILY@16 #30 TAB Ref 3 Prov:Juliane Briggs MD 02/19/17 Clopidogrel (Plavix)75 Mg Tab75 Mg PO DAILY #30 TAB Ref 3 Prov:Juliane Briggs MD 02/19/17 Cilostazol 50 Mg Tab50 Mg PO BIDAC #60 TAB Ref 3 Prov:Juliane Briggs MD 02/19/17 Patiromer Sorbitex Calcium (Veltassa)8.4 Gm Pow8.4 Gm PO DAILY #1 GM Ref 0 Prov:Juliane Briggs MD 09/28/16 Sodium Bicarbonate 325 Mg Oxk370 Mg PO Q12HR #1 TAB Ref 0 Prov:Juliane Briggs MD 09/28/16 Reported Medications Pantoprazole (Protonix)40 Mg Tab40 Mg PO DAILY #30 TAB Ref 0 02/22/17 Loratadine (Claritin)10 Mg [id number] Mg PO DAILY 02/22/[address] (Cymbalta DR)30 Mg Capdr30 Mg PO HS #30 CAP Ref 0 02/16/17 Tiotropium Inh (Spiriva Handihaler)18 Mcg Cap18 Mcg INH DAILY #30 CAP Ref 0 1 capsule = 18 mcg 12/07/16 Calcitriol 0.25 Mcg Cap0.25 Mcg PO DAILY #30 CAP Ref 0 12/07/16 Hydrocodone-Acetaminophen ([place]ley)10-325 Mg Tab1 Tab PO Q6H PRN (PAIN) Ref 0 12/07/16 Gabapentin 300 Mg Hff520 Mg PO BID #60 CAP Ref 0 12/07/16 Fluticasone Nasal [place] (Flonase Nasal [place])50 Mcg/Act Spray1 Spr EACH NARE DAILY #1 BOTTLE Ref 0 12/07/16 Albuterol 18 GM Inh (Ventolin Hfa 18 GM Inh)90 Mcg/Act Aer2 Puff INH Q4H PRN ( SHORTNESS OF BREATH) #1 INHALER Ref 0 12/07/16 Discontinued Reported Medications Loratadine (Claritin)10 Mg Tab10 Mg PO DAILY Ref 0 12/07/16 Discontinued Scripts Metoprolol Tartrate 25 Mg Tab50 Mg PO BID #60 TAB Ref 3 Prov:Juliane Briggs MD 02/19/17 Atorvastatin 40 Mg Tab40 Mg PO HS #30 TAB Ref 3 Prov:Juliane Briggs MD 02/19/17 Coded Allergies: HMG-CoA Reductase Inhibitors (Verified Allergy, Severe, 02/22/17) Niacin (Verified Allergy, Severe, 02/22/17) CAUSES HIM TO FEEL HOT Oily Fish (Verified Allergy, Intermediate, Diarrhea, 02/22/17) Physical Exam Vitals/I&O Date Time Temp Pulse Resp B/P Pulse Ox O2 Delivery O2 Flow Rate FiO2 02/27/17 12:37 97.9 103 16 133/65 95 02/27/17 10:45 105 18 154/71 96 02/27/17 08:49 96 T-piece 5.00 02/27/17 08:11 98.4 98 16 124/71 94 02/27/17 04:15 98.1 107 18 180/86 100 02/27/17 00:00 98.4 118 18 140/80 97 02/26/17 23:23 18 02/26/17 22:40 86 02/26/17 20:07 98 T-piece 6.00 28 02/26/17 20:00 99.1 90 15 172/81 98 02/26/17 18:00 98 02/26/17 16:00 92 02/26/17 16:00 98.5 98 12 179/85 98 Laboratory Tests Test 02/27/17 05:26 White Blood Count 17.3 Red Blood Count 3.84 Hemoglobin 9.6 Hematocrit 29.9 Mean Corpuscular Volume 77.9 Mean Corpuscular Hemoglobin 24.9 Mean Corpuscular Hemoglobin 32.0 Concent Red Cell Distribution Width 16.8 Platelet Count 341 Mean Platelet Volume 8.6 Prothrombin Time 12.8 Prothromb Time International 1.2 Ratio Activated Partial 33.8 Thromboplast Time Sodium Level 143 Potassium Level 4.7 Chloride Level 109 Carbon Dioxide Level 27.0 Anion Gap 7 Blood Urea Nitrogen 29 Creatinine 1.51 Estimat Glomerular Filtration 46 Rate Random Glucose 143 Calcium Level 8.8 Total Bilirubin 0.5 Direct Bilirubin 0.2 Indirect Bilirubin 0.3 Aspartate Amino Transf 71 (AST/SGOT) Alanine Aminotransferase 94 (ALT/SGPT) Alkaline Phosphatase 197 Total Protein 6.9 Albumin 2.2 Date/Time Procedure Status Source Growth 02/27/17 11:30 Gram Stain Received Sputum Oral Tracheal Aspirate Pending 02/27/17 11:30 Sputum Culture Received Sputum Oral Tracheal Aspirate Pending 02/22/17 21:15 Aerobic Blood Culture - Final Complete Blood Peripheral NO GROWTH IN 5 DAYS 02/22/17 21:15 Anaerobic Blood Culture - Final Complete Blood Peripheral NO GROWTH IN 5 DAYS Last [address] 02/27/17 0000 Signed Impressions: Service Date/Time: January 13:47 - CONCLUSION: 1. Moderate cerebral atrophy. 2. Old lacunar infarcts within the bilateral basal ganglia. 3. No acute infarct, acute hemorrhage, mass effect or extra-axial fluid collection. Bret Calderón MD Lower Extremity Ultrasound 02/26/17 0000 Signed Impressions: Service Date/Time: Saturday, February 25, 2017 15:35 - CONCLUSION: Superficial thrombosis on the left. The deep venous system is patent bilaterally. Bobby Coto MD FACR Assessment and Plan Assessment: (1) Carotid artery disease Status: Acute Plan Pt with a PMH 4cm right laryngeal bleeding mass/carcinoma that is eroding through the thyroid cartilage who needed a tracheostomy for airway clearance as the mass has shifted the larynx to the left. Consulted for Right sided Carotid Stenosis Plan Reviewed Imaging and HPI Pt is not a candidate for surgical intervention at this time Will have patient f/u once medically stable in our out patient clinic [facility]NA[facility] [phone] Problem Qualifiers (1) Carotid artery disease: Qualified Code: I77.9 - Right-sided carotid artery disease Concepción Mota Feb 27, 2017 15:08
[2017-02-27] MEDS: WARFARIN SOD 2 MG TAB PO SCH (16:08)
[2017-02-27] MEDS: oxyCODONE HCL ORAL CONC 20 MG/ML SYRINGE PO PRN ×2 (18:46→23:03)
[2017-02-27] MEDS: DULoxetine HCl DR 30 MG CAP PO SCH (20:47)
[2017-02-28] VITALS (9 sets, daily range): BP systolic 145–165; BP diastolic 66–86; PULSE 78–103; RESP 18–21; TEMP 96.3–98.6; O2SAT 96–98
[2017-02-28] MEDS: CHLORHEXIDINE GLUCONATE 2 % 1 PACK (2 CLOTHS) TOP SCH (04:00)
[2017-02-28] MEDS: INSULIN ASPART SUPPLEMENTAL SCALE SQ SCH ×4 (04:36→20:34)
[2017-02-28] MEDS: ENALAPRILAT 1.25 MG/ML VIAL IV PUSH PRN (04:36)
[2017-02-28] MEDS: SODIUM CHLOR 0.9% 1000 ML INJ 1,000 ML IV SCH ×2 (05:40→20:24)
[2017-02-28] MEDS: TIOTROPIUM BROMIDE 18 MCG INH INH SCH (07:46)
[2017-02-28] MEDS: PANTOPRAZOLE SODIUM 40 MG VIAL IV SCH (07:59)
[2017-02-28] MEDS: IRON SUCROSE INJ 200 MG in SODIUM CHLORIDE 0.9% INJ 100 ML IV SCH (07:59)
[2017-02-28] MEDS: CLOPIDOGREL 75 MG TAB PO SCH (08:00)
[2017-02-28] MEDS: LORATADINE 10 MG TAB PO SCH (08:00)
[2017-02-28] MEDS: DOCUSATE SODIUM 50 MG/SENNA 8.6 MG TAB PO SCH ×2 (08:00→20:33)
[2017-02-28] MEDS: GABAPENTIN 300 MG CAP PO SCH ×2 (08:00→20:33)
[2017-02-28] MEDS: SODIUM BICARBONATE 325 MG TAB PO SCH ×2 (08:00→20:30)
[2017-02-28] MEDS: PANTOPRAZOLE SOD 40 MG DELAYED RELEASE TAB PO SCH (08:00)
[2017-02-28] MEDS: oxyCODONE HCL ORAL CONC 20 MG/ML SYRINGE PO PRN (08:00)
[2017-02-28 08:10] LABS: BASOPHIL # 0.1 TH/MM3 (0-0.2); BASOPHIL % 0.5 % (0.0-2.0); EOSINOPHIL # 0.2 TH/MM3 (0-0.4); EOSINOPHIL % 1.3 % (0.0-4.0); HEMATOCRIT 27.8 % (39.0-51.0); HEMO FLAGS DIFF FINAL; LYMPH % 4.4 % (9.0-44.0); LYMPHOCYTE # 0.6 TH/MM3 (1.0-4.8); MEAN CELL VOLUME 77.6 FL (80.0-100.0); MEAN CORPUSCULAR HEMOGLOBIN 24.6 PG (27.0-34.0); MEAN CORPUSCULAR HGB CONC 31.7 % (32.0-36.0); MONO % 7.9 % (0.0-8.0); NEUT % 85.9 % (16.0-70.0); PLATELET COUNT 337 TH/MM3 (150-450); RED BLOOD COUNT 3.58 MIL/MM3 (4.50-5.90); RED CELL DISTRIBUTION WIDTH 16.9 % (11.6-17.2)
[2017-02-28 08:13] LABS: APTT (PATIENT) 41.1 SEC (24.3-30.1); INTERNATIONAL NORMALIZED RATIO 1.2 RATIO; PROTHROMBIN TIME - PATIENT 13.8 SEC (9.8-11.6)
[2017-02-28 08:26] LABS: BICARBONATE 27.2 MEQ/L (21.0-32.0); POTASSIUM 4.4 MEQ/L (3.5-5.1)
--- NOTE | 2017-02-28 09:37 | HHI.PR ---
Subjective Remarks Follow-up for recurrence of laryngeal cancer Patient has no complaints. He is able to mouth words but he does not produce any sounded to trach. I asked patient if any shortness of breathing he stated no. Patient continues to cough. Respiratory therapist at the bedside and stated that he is producing a lot of sputum. Patient has been afebrile. Per patient's nurse family is concerned that patient has been more confused since his admission. This is my second day with the patient and he actually is more alert today. Patient is following commands. There is no focal neurological deficits. Per nurse this has not been a change from his baseline. Patient does have multiple hardware is in his body. Objective Vitals Vital Signs Date Time Temp Pulse Resp B/P Pulse Ox O2 Delivery O2 Flow Rate FiO2 02/28/17 09:20 98 T-piece 5.00 28 02/28/17 04:00 98.2 99 18 165/78 97 02/28/17 01:23 Trach Collar 28 T-Piece Humidified 02/28/17 00:00 98.6 103 19 149/86 96 02/27/17 20:00 99.0 106 20 149/93 96 02/27/17 18:18 95 T-piece 6.00 28 02/27/17 14:05 97.8 98 20 149/70 96 02/27/17 12:37 97.9 103 16 133/65 95 02/27/17 10:45 105 18 154/71 96 I/O 02/27/17 02/27/17 02/27/17 02/28/17 02/28/17 02/28/17 07:00 15:00 23:00 07:00 15:00 23:00 Output Total 580 ml Balance -580 ml Output Urine Total 580 ml # Voids 1 Result Diagram: 02/28/17 0716 02/28/17 0716 Objective Remarks GENERAL: NAD HEAD: Normocephalic. NECK: Supple, trachea midline. No lymphadenopathy. Tracheostomy in place, no signs of active bleeding. EYES: No scleral icterus. No injection or drainage. CARDIOVASCULAR: Regular rate and rhythm without murmurs, gallops, or rubs. RESPIRATORY: Positive for diffuse rhonchi. No accessory muscle use. GASTROINTESTINAL: Abdomen soft, non-tender, nondistended. MUSCULOSKELETAL: No cyanosis, or edema. SKIN: Warm and dry. NEURO: No focal neurological deficits. He is following commands. He is able to mouth words. Unable to understand the worse since there is no vocal production. Able to understand simple one word answers. Sensation and motor grossly intact. Medications and IVs Current Medications Sodium Chloride (NS 1000 ml Inj) 1,000 ml @ 84 mls/hr [id number] IV Last administered on 02/28/17 05:40; Start 02/22/17 at 22:10 Pantoprazole Sodium (Protonix Inj) 40 mg DAILY IV Last administered on 07:59; Start 02/23/17 at 09:00 Miscellaneous Information 1 [id number] Last administered on 02/22/17 22:15; Start 02/22/17 at 22:15 Chlorhexidine Gluconate (Chlorhexidine 2% Cloth) Taper DAILY@04 TOP Last administered on 02/27/17 04:00; Start 02/23/17 at 04:00; Stop 02/19/18 at 03:59 Chlorhexidine Gluconate (Chlorhexidine 2% Cloth) 3 pack UNSCH PRN TOP HYGIENIC CARE; Start 02/22/17 at 22:15 Senna/Docusate Sodium (Genoveva-Colace) 1 tab BID PO Last administered on 08:00; Start 02/23/17 at 09:00 Magnesium Hydroxide (Milk Of Magnesia Liq) 30 ml Q12H PRN PO MILD - MODERATE CONSTIPATION Last administered on 02/26/17 08:22; Start 02/22/17 at 22:15 Sennosides (Senokot) 17.2 mg Q12H PRN PO MODERATE - SEVERE CONSTIPATION; Start 02/22/17 at 22:15 Bisacodyl (Dulcolax Supp) 10 mg DAILY PRN RECTAL SEVERE CONSITIPATION; Start at 22:15 Lactulose (Lactulose Liq) 30 ml DAILY PRN PO SEVERE CONSITIPATION Last administered on 02/26/17 12:27; Start 02/22/17 at 22:15 Midazolam HCl (Versed Inj) 5 mg ONCE ONCE IM ; Start 02/22/17 at 22:45; Stop at 22:54; Status DC Fentanyl Citrate (fentaNYL INJ) 100 mcg ONCE ONCE IM ; Start 02/22/17 at 22:45 ; Stop 02/22/17 at 22:54; Status DC Terbutaline Sulfate 1 mg 1 mg UNSCH PRN SQ For Extravasation; Start 02/22/17 at 22:45 Phenylephrine HCl/ Dextrose (Neosynephrine Inj/D5W 500 ml Inj) 500 ml @ 0 mls/ hr TITRATE IV ; Start 02/22/17 at 22:45 Magnesium Oxide 800 mg 800 mg UNSCH PRN PO For Magnesium 1.2 - 1.6 mg/dL; Start 02/23/17 at 10:45; Stop 02/27/17 at 14:49; Status DC Magnesium Sulfate 4 gm/Sodium Chloride 100 ml @ 50 mls/hr UNSCH PRN IV For Magnesium 0.9 - 1.1 mg/dL; Start 02/23/17 at 10:45; Stop 02/27/17 at 14:49; Status DC Magnesium Sulfate 2 gm/Sodium Chloride 100 ml @ 50 mls/hr UNSCH PRN IV For Magnesium 1.2 - 1.6 mg/dL; Start 02/23/17 at 10:45; Stop 02/27/17 at 14:49; Status DC Potassium Chloride 100 ml @ 50 mls/hr Q2H PRN IV For Potassium 2.8 - 3.2 mEq/L ; Start 02/23/17 at 10:45; Stop 02/27/17 at 14:49; Status DC Potassium Chloride 100 ml @ 50 mls/hr Q2H PRN IV For Potassium 3.3 - 3.5 mEq/L ; Start 02/23/17 at 10:45; Stop 02/27/17 at 14:49; Status DC Potassium Chloride 100 ml @ 50 mls/hr Q2H PRN IV For Potassium 2.8 - 3.2 mEq/L ; Start 02/23/17 at 10:45; Stop 02/27/17 at 14:49; Status DC Potassium Chloride (KCl 40 Meq Premix Inj) 100 ml @ 25 mls/hr UNSCH PRN IV For Potassium 3.3 - 3.5 mEq/L; Start 02/23/17 at 10:45; Stop 02/27/17 at 14:49; Status DC Potassium Phosphate (K-Phos) 2,000 mg Q4H PRN PO For Phosphorus < 2.5 mg/dL; Start 02/23/17 at 10:45; Stop 02/27/17 at 14:49; Status DC Potassium Phosphate 2000 mg 2,000 mg UNSCH PRN PO/TUBE SEE LABEL COMMENTS; Start 02/23/17 at 10:45; Stop 02/27/17 at 14:49; Status DC Potassium Phosphate 30 mmol/ Sodium Chloride 260 ml @ 42 mls/hr UNSCH PRN IV SEE LABEL COMMENTS; Start 02/23/17 at 10:45; Stop 02/27/17 at 14:49; Status DC Sodium Phosphate/ Sodium Chloride (Sodium Phosphate Inj/NS 250 ml Inj) 250 ml @ 42 mls/hr UNSCH PRN IV For Phosphorus < 2.5 mg/dL; Start 02/23/17 at 10:45; Stop 02/27/17 at 14:49; Status DC Duloxetine HCl (Cymbalta Dr) 30 mg HS PO Last administered on 02/26/17 21:31; Start 02/23/17 at 21:00 Gabapentin (Neurontin) 300 mg BID PO Last administered on 02/28/17 08:00; Start 02/23/17 at 21:00 Loratadine (Claritin) 10 mg DAILY PO Last administered on 02/28/17 08:00; Start 02/24/17 at 09:00 Pantoprazole Sodium (Protonix) 40 mg DAILY PO Last administered on 02/28/17 08 :00; Start 02/24/17 at 09:00 Sodium Bicarbonate (Sodium Bicarbonate) 325 mg Q12HR PO Last administered on 08:00; Start 02/23/17 at 21:00 Tiotropium [place] (Spiriva Inh) 18 mcg DAILY INH Last administered on 08:21; Start 02/24/17 at 09:00 Midazolam HCl (Versed Inj) 2 mg STK-MED ONCE .ROUTE ; Start 02/23/17 at 12:07; Stop 02/23/17 at 12:08; Status DC Ketamine HCl 500 mg 500 mg STK-MED ONCE .ROUTE ; Start 02/23/17 at 12:08; Stop 02/23/17 at 12:09; Status DC Sodium Bicarbonate (Sodium Bicarbonate 8.4% Inj) 50 ml @ As Directed STK-MED ONCE .ROUTE ; Start 02/23/17 at 12:17; Stop 02/23/17 at 12:18; Status DC Bupivacaine HCl/ Epinephrine Bitart (Sensorcaine-Epinephrine Pf 0.5% Inj) 30 ml STK-MED ONCE .ROUTE ; Start 02/23/17 at 12:18; Stop 02/23/17 at 12:19; Status DC Lidocaine HCl (Xylocaine 1% Inj (50 ml)) 50 ml STK-MED ONCE .ROUTE ; Start 02/23 at 12:18; Stop 02/23/17 at 12:19; Status DC Lidocaine/ Epinephrine (Xylocaine-Epi 1%-1:100,000 Inj) 30 ml STK-MED ONCE INFIL Last administered on 02/23/17 12:36; Start 02/23/17 at 12:36; Stop 02/23 at 14:11; Status DC Lidocaine/ Epinephrine (Xylocaine-Epi Mpf 1.5%-1:200,000 Inj) 30 ml STK-MED ONCE INFIL Last administered on 02/23/17 12:36; Start 02/23/17 at 12:36; Stop 02/23/17 at 14:11; Status DC Oxycodone HCl (Roxicodone Intensol Liq) 10 mg Q4H PRN PO pain 1-5 Last administered on 02/28/17 08:00; Start 02/23/17 at 16:00 Dextrose (D50w (Vial) Inj) 50 ml UNSCH PRN IV HYPOGLYCEMIA-SEE COMMENTS; Start 02/24/17 at 12:45 Glucagon (Glucagon Inj) 1 mg UNSCH PRN OTHER HYPOGLYCEMIA-SEE COMMENTS; Start 02/24/17 at 12:45 Insulin Aspart (NovoLOG SUPPLEMENTAL SCALE) 1 ACHS SLIDING SCALE SQ Last administered on 02/28/17 13:14; Start 02/24/17 at 16:00 Albuterol/ Ipratropium (Duoneb Neb) 1 ampule Q6HR NEB PRN INH sob congestion Last administered on 02/27/17 11:31; Start 02/25/17 at 09:00 Ondansetron HCl (Zofran Inj) 4 mg Q6HR PRN IV PUSH NAUSEA OR VOMITING; Start at 11:30 Enalaprilat (Vasotec Inj) 1.25 mg Q6H PRN IV PUSH SBP>160, DBP>90 Last administered on 02/28/17 04:36; Start 02/26/17 at 15:45 Clopidogrel Bisulfate 75 mg 75 mg DAILY PO Last administered on 02/28/17 08:00 ; Start 02/27/17 at 09:00 Iron Sucrose 200 mg/Sodium Chloride 110 ml @ 110 mls/hr DAILY IV Last administered on 02/28/17 07:59; Start 02/27/17 at 09:00; Stop 03/01/17 at 09:59 Pharmacy Profile Note (Coumadin Consult Pharmacy) 0 ml @ 0 mls/hr UNSCH OTHER ; Start 02/27/17 at 11:00 Patient Medication Teaching (Coumadin Booklet) 1 ONCE@1600 ONCE .XX Last administered on 02/27/17 16:09; Start 02/27/17 at 16:00; Stop 02/27/17 at 16:01 ; Status DC Warfarin Sodium (Coumadin) 2 mg DAILY@16 PO Last administered on 02/28/17 15: 03; Start 02/27/17 at 16:00 Warfarin Sodium 2 mg 2 mg ONCE ONCE PO Last administered on 02/28/17 15:03; Start 02/28/17 at 16:00; Stop 02/28/17 at 16:01 Cefepime HCl/ Sodium Chloride (Maxipime Inj/NS Inj) 100 ml @ 200 mls/hr Q12H IV Last administered on 02/28/17 15:15; Start 02/28/17 at 16:00 A/P Assessment and Plan 66-year-old male who has recurrent laryngeal cancer status post tracheostomy placement. Tracheostomy placed secondary to airway obstruction from bleeding into laryngeal mass. Laryngeal cancer with acute hematoma and airway obstruction Status post tracheostomy Continue feeds via feeding tube Per dietitian recommends Tf'ing w/Suplena @ goal rate 55ml/hr to offer 2376 kcal , 59.4g Protein and 974ml free water. Monitor wt closely. Labs reviewed-monitor renal labs closely. At the moment patient is not at goal. Physical therapy Speech therapy Questionable altered mental status There is no focal neurological deficit. This seems more due to fatigue which is the progression of his illness/cancer. It may also be due to bronchitis. Scan was negative for any acute process. Unable to do MRI secondary to hardware. Neurologist consulted and stated will try to order MRI and if patient is not able to obtain MRI to do a CT scan later on hospital course and EEG. Will also continue to monitor clinically. + Gram-negative sputum culture Patient does have increased sputum production. Will start cefepime pending final cultures. Continue to monitor patient clinically. Right internal carotid artery stenosis Appears to be nearly fully included from ultrasound. Vascular surgeon consulted. Agree that patient is not a good candidate for any invasive procedure. Per vascular surgeon can follow-up as outpatient. Chronic kidney disease Continue to monitor creatinine. Strict ins and outs. Avoid nephrotoxins. Diabetes mellitus type 2 Insulin sliding scale Follow blood sugars Patient is currently on tube feeds Peripheral artery disease Coronary artery disease Follow clinically No chest pain Continue Coumadin. Global weakness Physical therapy. Most likely secondary to current illness. History of DVT Bilateral Doppler repeated which shows a superficial thrombosis. Continue with Coumadin. Pharmacy dosing. DVT prophylaxis On Coumadin. Discharge Planning Patient is not tolerating tube feeds at the moment and he is not goal. He is also very fatigued due to his illness. Due to patients medical complexity I recommend inpatient rehabilitation. Rachel Nieto MD Feb 28, 2017 09:37
--- NOTE | 2017-02-28 10:15 | HHI.PR ---
Objective Vitals Vital Signs Date Time Temp Pulse Resp B/P Pulse Ox O2 Delivery O2 Flow Rate FiO2 02/28/17 09:20 98 T-piece 5.00 28 02/28/17 08:00 98.0 99 21 160/82 97 02/28/17 04:00 98.2 99 18 165/78 97 02/28/17 01:23 Trach Collar 28 T-Piece Humidified 02/28/17 00:00 98.6 103 19 149/86 96 02/27/17 20:00 99.0 106 20 149/93 96 02/27/17 18:18 95 T-piece 6.00 28 02/27/17 14:05 97.8 98 20 149/70 96 02/27/17 12:37 97.9 103 16 133/65 95 02/27/17 10:45 105 18 154/71 96 I/O 02/27/17 02/27/17 02/27/17 02/28/17 02/28/17 02/28/17 07:00 15:00 23:00 07:00 15:00 23:00 Output Total 580 ml Balance -580 ml Output Urine Total 580 ml # Voids 1 Result Diagram: 02/28/17 0716 02/28/17 0716 Objective Remarks GENERAL: NAD, A&Ox3 HEAD: Normocephalic. NECK: Supple, trachea midline. No lymphadenopathy. Tracheostomy in place, no signs of active bleeding. EYES: No scleral icterus. No injection or drainage. CARDIOVASCULAR: Regular rate and rhythm without murmurs, gallops, or rubs. RESPIRATORY: Breath sounds equal bilaterally. No accessory muscle use. GASTROINTESTINAL: Abdomen soft, non-tender, nondistended. MUSCULOSKELETAL: No cyanosis, or edema. SKIN: Warm and dry. NEURO: No focal neurological deficits. A/P Assessment and Plan 66-year-old male who has recurrent laryngeal cancer status post tracheostomy placement. Tracheostomy placed secondary to airway obstruction from bleeding into laryngeal mass. Laryngeal cancer with acute hematoma and airway obstruction Status post tracheostomy Continue feeds via feeding tube Per dietitian recommends Tf'ing w/Suplena @ goal rate 55ml/hr to offer 2376 kcal , 59.4g Protein and 974ml free water. Monitor wt closely. Labs reviewed-monitor renal labs closely. At the moment patient is not at goal. Physical therapy Speech therapy Right internal carotid artery stenosis Appears to be nearly fully included from ultrasound. Recommended further workup with a CT angio. Avoiding and she will at the moment due to acute renal failure. Will consult vascular surgeon. I do not think patient would be a good candidate for any type of invasive procedure. Chronic kidney disease I personally reviewed patient's kidney function and this is his baseline. There is actual improvement from his previous creatinine/GFR. Avoid nephrotoxins. Diabetes mellitus type 2 Insulin sliding scale Follow blood sugars Patient is currently on tube feeds Peripheral artery disease Coronary artery disease Follow clinically No chest pain Will resume Coumadin. Global weakness Physical therapy History of DVT Bilateral Doppler repeated which shows a superficial thrombosis. Dealt with Sydnee from oncologist/food server and stated that Dr. Melchor stated can resume Coumadin if okay with everybody else. DVT prophylaxis Will start Coumadin. Discharge Planning Patient is not tolerating tube feeds at the moment and he is not goal. He is also very fatigued due to his illness. He does not qualify for SNF placement due to insurance. Dealt with case management to see if he qualifies for CIR. At the moment I do not feel it is safe for patient to go home. Rachel Nieto MD Feb 28, 2017 10:15
--- NOTE | 2017-02-28 11:21 | PD.ONC.PN ---
Subjective Subjective Remarks Afebrile overnight. Patient with daughter at bedside. She is concerned that the patient is more confused. The patient mouths to me that he feels fine. When I ask him, he tells me he is at [facility], the year is 2016 and he tells me his full name. Objective Data Date Time Temp Pulse Resp B/P Pulse Ox O2 Delivery O2 Flow Rate FiO2 02/28/17 09:20 98 T-piece 5.00 28 02/28/17 08:00 98.0 99 21 160/82 97 02/28/17 04:00 98.2 99 18 165/78 97 02/28/17 01:23 Trach Collar 28 T-Piece Humidified 02/28/17 00:00 98.6 103 19 149/86 96 02/27/17 20:00 99.0 106 20 149/93 96 02/27/17 18:18 95 T-piece 6.00 28 02/27/17 14:05 97.8 98 20 149/70 96 02/27/17 12:37 97.9 103 16 133/65 95 Result Diagram: 02/28/17 0716 02/28/17 0716 Laboratory Results Laboratory Tests Test 02/28/17 07:16 White Blood Count 14.0 TH/MM3 Red Blood Count 3.58 MIL/MM3 Hemoglobin 8.8 GM/DL Hematocrit 27.8 % Mean Corpuscular Volume 77.6 FL Mean Corpuscular Hemoglobin 24.6 PG Mean Corpuscular Hemoglobin 31.7 % Concent Red Cell Distribution Width 16.9 % Platelet Count 337 TH/MM3 Mean Platelet Volume 8.6 FL Neutrophils (%) (Auto) 85.9 % Lymphocytes (%) (Auto) 4.4 % Monocytes (%) (Auto) 7.9 % Eosinophils (%) (Auto) 1.3 % Basophils (%) (Auto) 0.5 % Neutrophils # (Auto) 12.0 TH/MM3 Lymphocytes # (Auto) 0.6 TH/MM3 Monocytes # (Auto) 1.1 TH/MM3 Eosinophils # (Auto) 0.2 TH/MM3 Basophils # (Auto) 0.1 TH/MM3 CBC Comment DIFF FINAL Differential Comment Prothrombin Time 13.8 SEC Prothromb Time International 1.2 RATIO Ratio Activated Partial 41.1 SEC Thromboplast Time Sodium Level 143 MEQ/L Potassium Level 4.4 MEQ/L Chloride Level 109 MEQ/L Carbon Dioxide Level 27.2 MEQ/L Anion Gap 7 MEQ/L Blood Urea Nitrogen 24 MG/DL Creatinine 1.50 MG/DL Estimat Glomerular Filtration 47 ML/MIN Rate Random Glucose 130 MG/DL Calcium Level 8.6 MG/DL Culture Results Microbiology Date/Time Procedure Status Source Growth 02/27/17 11:30 Gram Stain - Final Resulted Sputum Oral Tracheal Aspirate 02/27/17 11:30 Sputum Culture Resulted Sputum Oral Tracheal Aspirate Pending Administered Medications Medications (Trade) Dose Ordered Sig/Alea Route PRN Reason Start Time Stop Time Status Last Admin Dose Admin Sodium Chloride (NS 1000 ml Inj) 1,000 ml @ 84 mls/hr [id number] IV 02/22/17 22:10 02/28/17 05:40 Pantoprazole Sodium (Protonix Inj) 40 mg DAILY IV 02/23/17 09:00 02/28/17 07:59 Miscellaneous Information 1 [id number] XX 02/22/17 22:15 02/22/17 22:15 Chlorhexidine Gluconate (Chlorhexidine 2% Cloth) Taper DAILY@04 TOP 02/23/17 04:00 02/19/18 03:59 02/27/17 04:00 Senna/Docusate Sodium (Genoveva-Colace) 1 tab BID PO 02/23/17 09:00 02/28/17 08:00 Magnesium Hydroxide (Milk Of Magnesia Liq) 30 ml Q12H PRN PO MILD - MODERATE CONSTIPATION 02/22/17 22:15 02/26/17 08:22 Lactulose (Lactulose Liq) 30 ml DAILY PRN PO SEVERE CONSITIPATION 02/22/17 22:15 02/26/17 12:27 Duloxetine HCl (Cymbalta Dr) 30 mg HS PO 02/23/17 21:00 02/26/17 21:31 Gabapentin (Neurontin) 300 mg BID PO 02/23/17 21:00 02/28/17 08:00 Loratadine (Claritin) 10 mg DAILY PO 02/24/17 09:00 02/28/17 08:00 Pantoprazole Sodium (Protonix) 40 mg DAILY PO 02/24/17 09:00 02/28/17 08:00 Sodium Bicarbonate (Sodium Bicarbonate) 325 mg Q12HR PO 02/23/17 21:00 02/28/17 08:00 Tiotropium [place] (Spiriva Inh) 18 mcg DAILY INH 02/24/17 09:00 02/26/17 08:21 Oxycodone HCl (Roxicodone Intensol Liq) 10 mg Q4H PRN PO pain 1-5 02/23/17 16:00 02/28/17 08:00 Enalaprilat (Vasotec Inj) 1.25 mg Q6H PRN IV PUSH SBP>160, DBP>90 02/26/17 15:45 02/28/17 04:36 Clopidogrel Bisulfate 75 mg 75 mg DAILY PO 02/27/17 09:00 02/28/17 08:00 Iron Sucrose/ Sodium Chloride (Venofer Inj/NS Inj) 110 ml @ 110 mls/hr DAILY IV 02/27/17 09:00 03/01/17 09:59 02/28/17 07:59 Warfarin Sodium (Coumadin) 2 mg DAILY@16 PO 02/27/17 16:00 02/27/17 16:08 Objective Remarks GENERAL: Middle aged male upright in bed, chronically ill appearing and lethargic. SKIN: Warm and dry. HEAD: Normocephalic. EYES: No injection or drainage. NECK: Supple, trachea midline. trach in place, on 5L via t-piece. CARDIOVASCULAR: Regular rate and rhythm RESPIRATORY: diminished at bases. occasional rhonchi. GASTROINTESTINAL: Abdomen soft, non-tender, nondistended. EXTREMITIES: No cyanosis, or edema. NEUROLOGICAL: No obvious focal deficit. Awake, alert, and oriented x3. moving all extremities. 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 --has a fairly large sized mass in his larynx which is occluding the airway. --status post tracheostomy. . --has multiple comorbidities. not a candidate for surgery. --palliative radiation treatments could be given. --poor candidate for any chemotherapy. --At this time we should focus on nutrition and physical therapy. --will follow up with Dr. Melchro in the clinic once he is discharged from the hospital. (2) Dysphagia Status: Chronic Plan: --has a PEG tube in place. --currently on Suplena @25cc/hr --manager analysis following: Rec Tf'ing w/Suplena @ goal rate 55ml/hr to offer 2376 kcal, 59.4g Protein and 974ml free water. Monitor wt closely. Labs reviewed- monitor renal labs closely. (3) Microcytic anemia Status: Acute Plan: --iron studies show low iron --B12 WNL --IV iron sucrose ordered Assessment 66-year-old male who has a history of upper airway carcinoma. He is status post single modality treatment with radiation in 2016. He now presents with upper airway compromise with an enlarging mass. s/p tracheostomy, 02/23 History of laryngeal carcinoma. Hyperlipidemia. Depression. Congestive heart failure. Chronic obstructive pulmonary disease. Cerebrovascular accident. Gastroesophageal reflux disease. Hypertension. Plan 1. AMS: patient is somewhat lethargic but does not appear otherwise altered to me. However, the daughter is very concerned. he has hardware in his left shoulder so I am unable to order MRI brain. d/w , hospitalist, she will consult neurology 2. will order urinalysis at daughters request. patient not having any urinary symptoms, but daughter is concerned that may be the cause of his confusion. 3. monitor CBC Attending Statement The exam, history, and the medical decision-making described in the above note were completed with the assistance of the mid-level provider. I reviewed and agree with the findings presented. I attest that I had a [id number] encounter with the patient on the same day, and personally performed and documented my assessment and findings in the medical record was alert and awake when I spoke with him does not want to go to for any surgical evaluation which is reasonable given his current clinical status will need rehab ongoing w/u for altered sensorium at times CT brain did not show any acute findings difficult situation in this patient with recurrent laryngeal cancer--poor PFS and multiple co-morbidities limiting factors d/w family d/w with vascular surgery Neeru Pritchett Feb 28, 2017 11:21 Perico Melchor MD Feb 28, 2017 22:46
[2017-02-28] MEDS: WARFARIN SOD 2 MG TAB PO SCH (15:03)
[2017-02-28] MEDS: CEFEPIME INJ 2,000 MG in SODIUM CHLORIDE 0.9% INJ 100 ML IV SCH (15:15)
--- NOTE | 2017-02-28 15:18 | MB ---
cc: ZARI BATES M.D. DATE OF CONSULTATION: 02/28/2017 REASON FOR CONSULTATION: HISTORY OF PRESENT ILLNESS: The patient is a 66 year-old male admitted on 02/22/2017 with upper airway obstruction, aggravated by recurrence of laryngeal malignancy. The patient had been on anticoagulation with Coumadin and Plavix. 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 MEDICATIONS Medications at home apparently include: 1. Coumadin. 2. Plavix. 3. Cilostazol. 4. At some point he had been on Protonix, Cymbalta and gabapentin. The neurological consultation was called because of the patient's confusion and forgetfulness noted during this admission. He may have been less confused when he came in. No apparent history of stroke, seizures or TIAs, though I have not had a chance to speak with family. NEUROLOGICAL EXAMINATION: The neurologic exam shows the patient to be awake, appeared confused, he has a trache and he attempts to avoid some simple words. He was relatively calm, cooperative during my visit. He was wet apparent from incontinence or from spilling the urinal on himself. He seemed to be a bit confused trying to pull the IV pole. I set him down and he answered simple questions. He was able to count fingers. Evidently communication is significantly impaired because of his trache. There is no obvious facial weakness. 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 He was able to stand up and when I came in he was actually is trying to walk as already said, no asymmetry of his leg, motor functions. Reflexes were diminished throughout, probably present at the knees. Plantar response is flexor. ASSESSMENT: Acute / subacute encephalopathy. This seems to be different from his baseline. He might have been better on admission. Multiple diagnoses including laryngeal carcinoma, depression. In one consult, I noted a history of cerebrovascular accident but no more details about this. He had a CT brain that was negative, from yesterday. I will see if an MRI brain can be obtained on him, not sure because of the recent trache. Study would be without contrast. If I am able to do MRI brain, then in a day or so will do a follow up CT brain and EEG studies. There is a history of apparent subtotal right internal carotid artery occlusion. No history of dementia that I could gather. Thank you for asking us to assist in his care. MD ANNA Dempsey/MARGO /2:54 PM /3:08 PM
[2017-02-28] MEDS ORDERED: WARFARIN SOD 2 MG TAB PO ONE (16:00)
[2017-02-28] MEDS: DULoxetine HCl DR 30 MG CAP PO SCH (20:33)
[2017-02-28 21:44] LABS: BLOOD, URINE TRACE (NEG); COMMENT (UR) CULT NOT INDICATED; CULTURE IF INDICATED CULT NOT INDICATED; GLUCOSE,URINE TRACE mg/dL (NEG); KETONE, URINE NEG (NEG); NITRITE,URINE NEG (NEG); PH, URINE 6.5 (5.0-8.5); URINE COLOR YELLOW (YELLW/STRAW)
[2017-03-01] VITALS (15 sets, daily range): BP systolic 142–178; BP diastolic 69–84; PULSE 97–112; RESP 17–20; TEMP 97.8–100.7; O2SAT 97–100
[2017-03-01] MEDS: oxyCODONE HCL ORAL CONC 20 MG/ML SYRINGE PO PRN ×3 (02:20→22:06)
[2017-03-01] MEDS: CHLORHEXIDINE GLUCONATE 2 % 1 PACK (2 CLOTHS) TOP SCH (04:00)
[2017-03-01] MEDS: CEFEPIME INJ 2,000 MG in SODIUM CHLORIDE 0.9% INJ 100 ML IV SCH ×2 (05:05→15:31)
[2017-03-01] MEDS: INSULIN ASPART SUPPLEMENTAL SCALE SQ SCH ×4 (06:25→21:00)
[2017-03-01 07:17] LABS: HEMATOCRIT 27.2 % (39.0-51.0); MEAN CORPUSCULAR HEMOGLOBIN 24.6 PG (27.0-34.0); MEAN CORPUSCULAR HGB CONC 31.5 % (32.0-36.0); PLATELET COUNT 348 TH/MM3 (150-450); RED BLOOD COUNT 3.49 MIL/MM3 (4.50-5.90); REVIEW FLAG FINAL; WHITE BLOOD COUNT 11.4 TH/MM3 (4.0-11.0)
[2017-03-01 07:25] LABS: INTERNATIONAL NORMALIZED RATIO 1.4 RATIO; PROTHROMBIN TIME - PATIENT 15.4 SEC (9.8-11.6)
[2017-03-01] MEDS: PANTOPRAZOLE SOD 40 MG DELAYED RELEASE TAB PO SCH (07:32)
[2017-03-01 07:49] LABS: BICARBONATE 24.8 MEQ/L (21.0-32.0)
[2017-03-01] MEDS: TIOTROPIUM BROMIDE 18 MCG INH INH SCH (09:00)
[2017-03-01] MEDS: IRON SUCROSE INJ 200 MG in SODIUM CHLORIDE 0.9% INJ 100 ML IV SCH (09:33)
[2017-03-01] MEDS ORDERED: RESP: ALBUTEROL 2.5 MG/IPRATROPIUM 0.5 MG NEB (PRN) NEB (10:15)
[2017-03-01] MEDS: PANTOPRAZOLE SODIUM 40 MG VIAL IV SCH (10:40)
[2017-03-01] MEDS: LORATADINE 10 MG TAB PO SCH (10:41)
[2017-03-01] MEDS: GABAPENTIN 300 MG CAP PO SCH ×2 (10:41→21:48)
[2017-03-01] MEDS: CLOPIDOGREL 75 MG TAB PO SCH (10:41)
[2017-03-01] MEDS: SODIUM BICARBONATE 325 MG TAB PO SCH ×2 (10:41→21:48)
[2017-03-01] MEDS: DOCUSATE SODIUM 50 MG/SENNA 8.6 MG TAB PO SCH ×2 (10:41→21:48)
--- NOTE | 2017-03-01 10:41 | HHI.PR ---
Subjective Remarks Follow-up for altered mental status Patient still is a bit off but oriented today. Denies any headache, he feels like he is clear. Denies any urinary symptoms. States still with a lot of tracheostomy secretion. Afebrile. Objective Vitals Vital Signs Date Time Temp Pulse Resp B/P Pulse Ox O2 Delivery O2 Flow Rate FiO2 03/01/17 09:31 98 T-piece 28 03/01/17 08:00 98.5 100 17 164/82 100 03/01/17 06:50 110 03/01/17 04:00 98.6 100 19 162/78 98 03/01/17 00:20 100.7 03/01/17 00:00 98.9 104 20 150/76 97 02/28/17 20:39 97 T-piece 5.00 02/28/17 20:30 97 T-Piece 5.00 28 02/28/17 20:00 96.3 86 19 145/69 98 02/28/17 16:04 97.2 98 18 146/66 97 02/28/17 16:00 78 02/28/17 14:00 Trach Collar 02/28/17 12:00 98.3 89 21 154/74 98 I/O 02/28/17 02/28/17 02/28/17 03/01/17 03/01/17 03/01/17 07:00 15:00 23:00 07:00 15:00 23:00 Intake Total 1032 ml 1052 ml Output Total 600 ml 350 ml Balance 432 ml 702 ml Intake IV Total 672 ml 672 ml Tube Feeding 240 ml 320 ml Other 120 ml 60 ml Output Urine Total 600 ml 350 ml # Voids 1 Result Diagram: 03/01/17 0547 03/01/17 0547 Objective Remarks GENERAL: NAD HEAD: Normocephalic. NECK: Supple, trachea midline. No lymphadenopathy. Tracheostomy in place, no signs of active bleeding. EYES: No scleral icterus. No injection or drainage. CARDIOVASCULAR: Regular rate and rhythm without murmurs, gallops, or rubs. RESPIRATORY: His rhonchi, a lot of yellowish to greenish secretions from tracheostomy.. GASTROINTESTINAL: Abdomen soft, non-tender, nondistended. MUSCULOSKELETAL: No cyanosis, or edema. SKIN: Warm and dry. NEURO: No focal neurological deficits. He is following commands. He is able to mouth words. Oriented to self, place, and date. He knows his birthday A/P Assessment and Plan 66-year-old male who has recurrent laryngeal cancer status post tracheostomy placement. Tracheostomy placed secondary to airway obstruction from bleeding into laryngeal mass. Laryngeal cancer with acute hematoma and airway obstruction Status post tracheostomy Continue feeds via feeding tube w/Suplena @ goal rate 55ml/hr to offer 2376 kcal , 59.4g Protein and 974ml free water. Monitor wt closely. Labs reviewed-monitor renal labs closely. At the moment patient is not at goal. Start Mucomyst with nebulization. Questionable altered mental status There is no focal neurological deficit. This seems more due to fatigue which is the progression of his illness/cancer. It may also be due to bronchitis. Scan was negative for any acute process. Unable to do MRI secondary to hardware. CT scan of the head revealed moderate atrophy, old lacunar infarcts. Check EEG, monitor clinically. Could be secondary to opiates and benzodiazepine. Minimize scheduled to medications, urinalysis negative. + Gram-negative sputum culture Patient does have increased sputum production. Continue cefepime, awaiting final culture results. Positive Gram stain. Right internal carotid artery stenosis Appears to be nearly fully included from ultrasound. Vascular surgeon consulted. Agree that patient is not a good candidate for any invasive procedure. Per vascular surgeon can follow-up as outpatient. Chronic kidney disease Continue to monitor creatinine. Strict ins and outs. Avoid nephrotoxins. Diabetes mellitus type 2 Insulin sliding scale Follow blood sugars Patient is currently on tube feeds Peripheral artery disease Coronary artery disease Follow clinically No chest pain Continue Coumadin. Global weakness Physical therapy. Most likely secondary to current illness. History of DVT Bilateral Doppler repeated which shows a superficial thrombosis. Continue with Coumadin. Pharmacy dosing. DVT prophylaxis On Coumadin. Discharge Planning Patient is not tolerating tube feeds at the moment and he is not goal. He is also very fatigued due to his illness. Will require rehabilitation. Stevan Delacruz MD Mar 01, 2017 10:41
[2017-03-01] MEDS: WARFARIN SOD 2 MG TAB PO SCH (15:31)
[2017-03-01] MEDS: ENALAPRILAT 1.25 MG/ML VIAL IV PUSH PRN (15:37)
[2017-03-01] MEDS ORDERED: LORazepam 0.5 MG TAB PEG PRN (19:00)
[2017-03-01] MEDS: RESP: ACETYLCYSTEINE 10% 30 ML NEB NEB SCH (21:00)
[2017-03-01] MEDS: RESP: ALBUTEROL 2.5 MG/IPRATROPIUM 0.5 MG NEB (SCH) NEB (21:00)
[2017-03-01] MEDS: DULoxetine HCl DR 30 MG CAP PO SCH (21:49)
[2017-03-01] MEDS: SODIUM CHLOR 0.9% 1000 ML INJ 1,000 ML IV SCH (21:50)
[2017-03-01] MEDS: MAGNESIUM HYDROXIDE SUSP 30 ML CUP PO PRN (22:05)
[2017-03-02] VITALS (15 sets, daily range): BP systolic 142–168; BP diastolic 74–88; PULSE 99–239; RESP 16–22; TEMP 97.1–99.8; O2SAT 93–100
[2017-03-02] MEDS: oxyCODONE HCL ORAL CONC 20 MG/ML SYRINGE PO PRN ×3 (02:54→19:52)
[2017-03-02] MEDS: CEFEPIME INJ 2,000 MG in SODIUM CHLORIDE 0.9% INJ 100 ML IV SCH (03:03)
[2017-03-02] MEDS: RESP: ACETYLCYSTEINE 10% 30 ML NEB NEB SCH ×3 (03:56→20:47)
[2017-03-02] MEDS: CHLORHEXIDINE GLUCONATE 2 % 1 PACK (2 CLOTHS) TOP SCH ×2 (04:00→23:05)
[2017-03-02] MEDS: INSULIN ASPART SUPPLEMENTAL SCALE SQ SCH ×4 (06:33→22:51)
[2017-03-02 06:43] LABS: HEMATOCRIT 23.8 % (39.0-51.0); MEAN CELL VOLUME 77.7 FL (80.0-100.0); MEAN CORPUSCULAR HEMOGLOBIN 24.9 PG (27.0-34.0); PLATELET COUNT 274 TH/MM3 (150-450); RED BLOOD COUNT 3.07 MIL/MM3 (4.50-5.90); RED CELL DISTRIBUTION WIDTH 16.7 % (11.6-17.2); REVIEW FLAG FINAL; WHITE BLOOD COUNT 8.9 TH/MM3 (4.0-11.0)
[2017-03-02 07:13] LABS: BICARBONATE 23.5 MEQ/L (21.0-32.0); POTASSIUM 3.6 MEQ/L (3.5-5.1)
[2017-03-02 07:33] LABS: INTERNATIONAL NORMALIZED RATIO 1.6 RATIO; PROTHROMBIN TIME - PATIENT 18.6 SEC (9.8-11.6)
[2017-03-02] MEDS: RESP: ALBUTEROL 2.5 MG/IPRATROPIUM 0.5 MG NEB (SCH) NEB ×2 (08:00→20:47)
[2017-03-02] MEDS: SODIUM CHLOR 0.9% 1000 ML INJ 1,000 ML IV SCH (08:21)
[2017-03-02] MEDS: PANTOPRAZOLE SODIUM 40 MG VIAL IV SCH (08:21)
[2017-03-02] MEDS: GABAPENTIN 300 MG CAP PO SCH ×2 (08:21→22:53)
[2017-03-02] MEDS: CLOPIDOGREL 75 MG TAB PO SCH (08:21)
[2017-03-02] MEDS: LORATADINE 10 MG TAB PO SCH (08:22)
[2017-03-02] MEDS: DOCUSATE SODIUM 50 MG/SENNA 8.6 MG TAB PO SCH ×2 (08:22→21:00)
[2017-03-02] MEDS: PANTOPRAZOLE SOD 40 MG DELAYED RELEASE TAB PO SCH (08:22)
[2017-03-02] MEDS: ENALAPRILAT 1.25 MG/ML VIAL IV PUSH PRN (08:26)
[2017-03-02] MEDS: TIOTROPIUM BROMIDE 18 MCG INH INH SCH (09:00)
[2017-03-02] MEDS: SODIUM BICARBONATE 325 MG TAB PO SCH ×2 (09:00→22:53)
--- NOTE | 2017-03-02 09:50 | HHI.PR ---
Subjective Remarks Follow-up for altered mental status Mental status a lot better today, less secretions via tracheostomy. Afebrile. Leukocytosis resolved. No bleeding. Objective Vitals Vital Signs Date Time Temp Pulse Resp B/P Pulse Ox O2 Delivery O2 Flow Rate FiO2 03/02/17 09:20 99 T-piece 28 03/02/17 08:46 108 03/02/17 08:46 T-Piece 5.00 28 03/02/17 08:00 97.3 106 18 168/88 100 03/02/17 04:00 99.4 103 20 148/80 99 03/02/17 04:00 19 03/02/17 00:00 99.1 115 20 166/80 98 03/01/17 21:02 98 T-piece 03/01/17 21:00 99 T-Piece 5.00 03/01/17 21:00 106 03/01/17 20:00 98.3 99 19 150/84 99 03/01/17 17:00 97 151/69 03/01/17 16:38 103 03/01/17 16:00 99.1 112 18 178/83 100 03/01/17 12:16 97 03/01/17 12:00 97.8 100 18 142/69 100 I/O 03/01/17 03/01/17 03/01/17 03/02/17 03/02/17 03/02/17 07:00 15:00 23:00 07:00 15:00 23:00 Intake Total 1052 ml 1220 ml 701 ml 648 ml Output Total 350 ml 475 ml 250.0 ml 300 ml Balance 702 ml 745 ml 451.0 ml 648 ml -300 ml Intake Oral 0 ml 0 ml IV Total 672 ml 826 ml 701 ml 648 ml Tube Feeding 320 ml 284 ml Other 60 ml 110 ml Output Urine Total 350 ml 475 ml 250 ml 300 ml Tube Feeding Residual Discard 0 ml # Voids 1 Result Diagram: 03/02/17 0559 03/02/17 0559 Objective Remarks GENERAL: NAD HEAD: Normocephalic. NECK: Tracheostomy in place, no signs of active bleeding. EYES: No scleral icterus. No injection or drainage. CARDIOVASCULAR: Regular rate and rhythm without murmurs, gallops, or rubs. RESPIRATORY: Occasional rhonchi, secretions from tracheostomy less than yesterday. GASTROINTESTINAL: Abdomen soft, non-tender, nondistended. MUSCULOSKELETAL: No cyanosis, or edema. SKIN: Warm and dry. NEURO: No focal neurological deficits. He is following commands. He is able to mouth words. Oriented to self, place, and date. He knows his birthday A/P Assessment and Plan 66-year-old male who has recurrent laryngeal cancer status post tracheostomy placement. Tracheostomy placed secondary to airway obstruction from bleeding into laryngeal mass, presented with altered mental status. Laryngeal cancer with acute hematoma and airway obstruction Status post tracheostomy - Continue feeds via feeding tube w/Suplena @ goal rate 55ml/hr to offer 2376 kcal, 59.4g Protein and 974ml free water. Monitor wt closely. Labs reviewed- monitor renal labs closely. Secretions are thinner, continue Mucomyst with nebulization. Questionable altered mental status -There is no focal neurological deficit. This seems more due to fatigue which is the progression of his illness/cancer. It may also be due to bronchopneumonia. CT Scan was negative for any acute process. Unable to do MRI secondary to hardware. CT scan of the head revealed moderate atrophy, old lacunar infarcts. Could be secondary to opiates and benzodiazepine. Minimize scheduled to medications, urinalysis negative. Follow-up EEG. Klebsiella Bronchopneumonia-sputum culture grew Klebsiella pneumonia, sensitive to ceftriaxone, can probably switch to Augmentin or Ceftin on discharge. Anterior bronchodilators as above. Right internal carotid artery stenosis Appears to be nearly fully included from ultrasound. Vascular surgeon consulted. Agree that patient is not a good candidate for any invasive procedure. Per vascular surgeon can follow-up as outpatient. Chronic kidney disease Continue to monitor creatinine. Strict ins and outs. Avoid nephrotoxins. Creatinine stable. Diabetes mellitus type 2 Insulin sliding scale Follow blood sugars Patient is currently on tube feeds Peripheral artery disease Coronary artery disease Follow clinically No chest pain Continue Coumadin. Global weakness Physical therapy. Most likely secondary to current illness. Will need rehabilitation versus CIR History of DVT Bilateral Doppler repeated which shows a superficial thrombosis. Continue with Coumadin. Pharmacy dosing. Increase Coumadin today, INR subtherapeutic DVT prophylaxis On Coumadin. Discharge Planning Discharged to [facility] versus SNF once placement is ready. tSevan Delacruz MD Mar 02, 2017 09:50
[2017-03-02] MEDS: cefTRIAXone INJ 1,000 MG in SODIUM CHLORIDE 0.9% INJ 100 ML IV SCH (15:00)
[2017-03-02] MEDS: WARFARIN SOD 3 MG TAB PO SCH (16:31)
[2017-03-02] MEDS: LORazepam 1 MG TAB PEG PRN (18:27)
[2017-03-02] MEDS: DULoxetine HCl DR 30 MG CAP PO SCH (22:53)
[2017-03-03] VITALS (13 sets, daily range): BP systolic 144–173; BP diastolic 72–86; PULSE 88–141; RESP 19–23; TEMP 96.3–97.9; O2SAT 97–100
[2017-03-03] MEDS: oxyCODONE HCL ORAL CONC 20 MG/ML SYRINGE PO PRN ×2 (00:13→16:49)
[2017-03-03] MEDS: LORazepam 1 MG TAB PEG PRN (00:23)
[2017-03-03 05:53] LABS: INTERNATIONAL NORMALIZED RATIO 1.9 RATIO; PROTHROMBIN TIME - PATIENT 21.1 SEC (9.8-11.6)
[2017-03-03] MEDS: INSULIN ASPART SUPPLEMENTAL SCALE SQ SCH ×3 (05:53→16:00)
[2017-03-03] MEDS: MAGNESIUM HYDROXIDE SUSP 30 ML CUP PO PRN (07:32)
[2017-03-03] MEDS: TIOTROPIUM BROMIDE 18 MCG INH INH SCH (09:00)
[2017-03-03] MEDS: DOCUSATE SODIUM 50 MG/SENNA 8.6 MG TAB PO SCH (09:00)
[2017-03-03] MEDS ORDERED: LANSOPRAZOLE SOLUTAB 30 MG TAB NG SCH (09:00)
[2017-03-03] MEDS: RESP: ALBUTEROL 2.5 MG/IPRATROPIUM 0.5 MG NEB (SCH) NEB (09:19)
[2017-03-03] MEDS: RESP: ACETYLCYSTEINE 10% 30 ML NEB NEB SCH (09:19)
--- NOTE | 2017-03-03 09:41 | HHI.PR ---
Subjective Remarks In the chair. Denies any fever or chills. Has occasional cough. Nods yes/no to questions. No n/v/d/c. Decreased appetite. Objective Vitals Vital Signs Date Time Temp Pulse Resp B/P Pulse Ox O2 Delivery O2 Flow Rate FiO2 03/03/17 08:04 96.4 97 21 150/72 98 03/03/17 04:35 108 03/03/17 04:16 141 03/03/17 04:00 97.2 110 19 152/86 97 03/03/17 03:45 107 03/03/17 00:12 114 03/03/17 00:00 97.1 116 20 160/82 98 03/02/17 23:06 99.8 03/02/17 20:51 98 T-piece 28 03/02/17 20:15 112 03/02/17 20:00 98.4 113 18 158/87 100 03/02/17 19:27 T-Piece 28 03/02/17 16:00 97.5 100 16 152/81 93 03/02/17 12:35 99 03/02/17 12:00 97.1 120 20 150/74 100 03/02/17 10:29 110 03/02/17 10:25 97.4 160 22 142/77 100 03/02/17 10:23 239 I/O 03/02/17 03/02/17 03/02/17 03/03/17 03/03/17 03/03/17 07:00 15:00 23:00 07:00 15:00 23:00 Intake Total 648 ml 0 ml 1275 ml 2190 ml Output Total 550 ml 700 ml 500 ml Balance 648 ml -550 ml 575 ml 1690 ml Intake Oral 0 ml 0 ml IV Total 648 ml 770 ml 1015 ml Tube Feeding 385 ml 875 ml Tube Irrigant 120 ml 300 ml Output Urine Total 550 ml 700 ml 500 ml # Voids 1 1 1 # Bowel Movements 0 Result Diagram: 03/02/17 0559 03/02/17 0559 Imaging Last Impressions Head CT 02/27/17 0000 Signed Impressions: Service Date/Time: January 13:47 - CONCLUSION: 1. Moderate cerebral atrophy. 2. Old lacunar infarcts within the bilateral basal ganglia. 3. No acute infarct, acute hemorrhage, mass effect or extra-axial fluid collection. Bret Calderón MD Chest X-Ray 02/27/17 0000 Signed Impressions: Service Date/Time: January 13:37 - CONCLUSION: 1. Perihilar streakiness consistent with atelectasis and/or minimal congestion. Clinical correlation is recommended. 2. Interval slight decrease in the subcutaneous emphysema within the supraclavicular tissues bilaterally. Bret Calderón MD Lower Extremity Ultrasound 02/26/17 0000 Signed Impressions: Service Date/Time: Saturday, February 25, 2017 15:35 - CONCLUSION: Superficial thrombosis on the left. The deep venous system is patent bilaterally. Bobby Coto MD FACR Objective Remarks GENERAL: NAD HEAD: Normocephalic. NECK: Tracheostomy in place, no signs of active bleeding. EYES: No scleral icterus. No injection or drainage. CARDIOVASCULAR: Regular rate and rhythm without murmurs, gallops, or rubs. RESPIRATORY: Occasional rhonchi, secretions from tracheostomy less than yesterday. GASTROINTESTINAL: Abdomen soft, non-tender, nondistended. MUSCULOSKELETAL: No cyanosis, or edema. SKIN: Warm and dry. NEURO: No focal neurological deficits. He is following commands. He is able to mouth words. Oriented to self, place, and date. He knows his birthday A/P Assessment and Plan 66-year-old male who has recurrent laryngeal cancer status post tracheostomy placement. Tracheostomy placed secondary to airway obstruction from bleeding into laryngeal mass, presented with altered mental status. Laryngeal cancer with acute hematoma and airway obstruction Status post tracheostomy - Continue feeds via feeding tube w/Suplena @ goal rate 55ml/hr to offer 2376 kcal, 59.4g Protein and 974ml free water. Monitor wt closely. Labs reviewed- monitor renal labs closely. Secretions are thinner, continue Mucomyst with nebulization. 03/02/17 Elbertt was called because patient pulled his T-piece. HR went up to >150s but when back and after stabilization. Possibly secondary to anxiety, increase Ativan as needed. HR 90. BP stable, oxygenation stable, EKG showed ST, with PVCs, possible NSVT. Repeat EKG. Questionable altered mental status -There is no focal neurological deficit. This seems more due to fatigue which is the progression of his illness/cancer. It may also be due to bronchopneumonia. CT Scan was negative for any acute process. Unable to do MRI secondary to hardware. CT scan of the head revealed moderate atrophy, old lacunar infarcts. Could be secondary to opiates and benzodiazepine. Minimize scheduled to medications, urinalysis negative. Follow-up EEG. Klebsiella Bronchopneumonia-sputum culture grew Klebsiella pneumonia, sensitive to ceftriaxone, can probably switch to Augmentin or Ceftin on discharge. Anterior bronchodilators as above. Right internal carotid artery stenosis Appears to be nearly fully included from ultrasound. Vascular surgeon consulted. Agree that patient is not a good candidate for any invasive procedure. Per vascular surgeon can follow-up as outpatient. Chronic kidney disease Continue to monitor creatinine. Strict ins and outs. Avoid nephrotoxins. Creatinine stable. Diabetes mellitus type 2 Insulin sliding scale Follow blood sugars Patient is currently on tube feeds Peripheral artery disease Coronary artery disease Follow clinically No chest pain Continue Coumadin. Global weakness Physical therapy. Most likely secondary to current illness. Will need rehabilitation versus CIR History of DVT Bilateral Doppler repeated which shows a superficial thrombosis. Continue with Coumadin. Pharmacy dosing. Increase Coumadin today, INR subtherapeutic DVT prophylaxis On Coumadin. Discharge Planning Discharged to [place] [facility] versus SNF when improved. Discussed with the patient. nurse Brenda Madrid MD Mar 03, 2017 09:41
[2017-03-03] MEDS: CLOPIDOGREL 75 MG TAB PO SCH (10:06)
[2017-03-03] MEDS: SODIUM BICARBONATE 325 MG TAB PO SCH (10:06)
[2017-03-03] MEDS: GABAPENTIN 300 MG CAP PO SCH (10:06)
[2017-03-03] MEDS: LORATADINE 10 MG TAB PO SCH (10:07)
--- NOTE | 2017-03-03 10:59 | HHI.DS ---
Discharge Summary Admission Date Feb 22, 2017 at 22:06 Discharge Date: Mar 03, 2017 Admitting Diagnosis oropharyngeal carcinoma with airway compromise, coagulopathy (1) Mass of right side of neck ICD Code: R22.1 Diagnosis: Principal (2) Dysphagia ICD Code: R13.10 Diagnosis: Principal (3) Atherosclerosis of artery of both lower extremities ICD Code: I70.203 Diagnosis: Secondary (4) Chronic kidney disease, stage 4 (severe) ICD Code: N18.4 Diagnosis: Secondary (5) Chest pain ICD Code: R07.9 Diagnosis: Secondary (6) Elevated troponin I level ICD Code: R79.89 Diagnosis: Secondary (7) Aspiration pneumonia ICD Code: J69.0 Diagnosis: Secondary (8) Chronic ulcer of toe of left foot ICD Code: L97.529 Diagnosis: Secondary (9) Acute respiratory failure with hypoxemia ICD Code: J96.01 Diagnosis: Secondary (10) PVD (peripheral vascular disease) ICD Code: I73.9 Diagnosis: Secondary (11) Diabetes mellitus with peripheral vascular disease ICD Code: E11.51 Diagnosis: Secondary (12) Weakness ICD Code: R53.1 Diagnosis: Secondary (13) COPD (chronic obstructive pulmonary disease) ICD Code: J44.9 Diagnosis: Secondary Procedures Tracheostomy Brief History - From Admission 66 y/o man with severe upper airway obstruction exacerbated by bleeding laryngeal malignancy. CT neck reveals markedly narrowed upper airway. Complicating features include full anticoagulation with warfarin and plavix antiplatelet therapy. 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 Below the cancer and above the innominate artery is a window suitable for emergency percutaneous tracheostomy once coagulopathy is reversed. CBC/BMP: 03/02/17 0559 03/02/17 0559 Significant Findings Laboratory Tests Test 02/28/17 03/01/17 03/02/17 03/03/17 21:00 05:47 05:59 05:08 Urine Protein 30 mg/dL (NEG-TRACE) Urine Occult Blood TRACE (NEG) White Blood Count 11.4 TH/MM3 (4.0-11.0) Red Blood Count 3.49 MIL/MM3 3.07 MIL/MM3 (4.50-5.90) (4.50-5.90) Hemoglobin 8.6 GM/DL 7.6 GM/DL (13.0-17.0) (13.0-17.0) Hematocrit 27.2 % 23.8 % (39.0-51.0) (39.0-51.0) Mean Corpuscular Volume 78.0 FL 77.7 FL (80.0-100.0) (80.0-100.0) Mean Corpuscular Hemoglobin 24.6 PG 24.9 PG (27.0-34.0) (27.0-34.0) Mean Corpuscular Hemoglobin 31.5 % Concent (32.0-36.0) Prothrombin Time 15.4 SEC 18.6 SEC 21.1 SEC (9.8-11.6) (9.8-11.6) (9.8-11.6) Chloride Level 108 MEQ/L 109 MEQ/L (98-107) (98-107) Blood Urea Nitrogen 24 MG/DL (7-18) 20 MG/DL (7-18) Creatinine 1.48 MG/DL 1.38 MG/DL (0.60-1.30) (0.60-1.30) Estimat Glomerular Filtration 47 ML/MIN (>89) 51 ML/MIN (>89) Rate Random Glucose 143 MG/DL 121 MG/DL (74-106) (74-106) Calcium Level 8.0 MG/DL (8.5-10.1) Imaging Last Impressions Head CT 02/27/17 Signed Impressions: Service Date/Time: January 13:47 - CONCLUSION: 1. Moderate cerebral atrophy. 2. Old lacunar infarcts within the bilateral basal ganglia. 3. No acute infarct, acute hemorrhage, mass effect or extra-axial fluid collection. Bret Calderón MD Chest X-Ray 02/27/17 Signed Impressions: Service Date/Time: January 13:37 - CONCLUSION: 1. Perihilar streakiness consistent with atelectasis and/or minimal congestion. Clinical correlation is recommended. 2. Interval slight decrease in the subcutaneous emphysema within the supraclavicular tissues bilaterally. Bret Calderón MD Lower Extremity Ultrasound 02/26/17 0000 Signed Impressions: Service Date/Time: Saturday, February 25, 2017 15:35 - CONCLUSION: Superficial thrombosis on the left. The deep venous system is patent bilaterally. Bobby Coto MD FACR PE at Discharge GENERAL: NAD HEAD: Normocephalic. NECK: Tracheostomy in place, no signs of active bleeding. EYES: No scleral icterus. No injection or drainage. CARDIOVASCULAR: Regular rate and rhythm without murmurs, gallops, or rubs. RESPIRATORY: Occasional rhonchi, secretions from tracheostomy less than yesterday. GASTROINTESTINAL: Abdomen soft, non-tender, nondistended. MUSCULOSKELETAL: No cyanosis, or edema. SKIN: Warm and dry. NEURO: No focal neurological deficits. He is following commands. He is able to mouth words. Oriented to self, place, and date. 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 Tracheostomy placed secondary to airway obstruction from bleeding into laryngeal mass, presented with altered mental status. Laryngeal cancer with acute hematoma and airway obstruction Status post tracheostomy - Continue feeds via feeding tube w/Suplena @ goal rate 55ml/hr to offer 2376 kcal, 59.4g Protein and 974ml free water. Monitor wt closely. Labs reviewed- monitor renal labs closely. Secretions are thinner, continue Mucomyst with nebulization. 03/02/17 Elbertt was called because patient pulled his T-piece. HR went up to >150s but when back and after stabilization. Possibly secondary to anxiety, increase Ativan as needed. HR 90. BP stable, oxygenation stable, EKG showed ST, with PVCs, possible NSVT. Repeat EKG. Questionable altered mental status -There is no focal neurological deficit. This seems more due to fatigue which is the progression of his illness/cancer. It may also be due to bronchopneumonia. CT Scan was negative for any acute process. Unable to do MRI secondary to hardware. CT scan of the head revealed moderate atrophy, old lacunar infarcts. Could be secondary to opiates and benzodiazepine. Minimize scheduled to medications, urinalysis negative. Follow-up EEG. Klebsiella Bronchopneumonia-sputum culture grew Klebsiella pneumonia, sensitive to ceftriaxone, can probably switch to Augmentin or Ceftin on discharge. Anterior bronchodilators as above. Right internal carotid artery stenosis Appears to be nearly fully included from ultrasound. Vascular surgeon consulted. Agree that patient is not a good candidate for any invasive procedure. Per vascular surgeon can follow-up as outpatient. Chronic kidney disease Continue to monitor creatinine. Strict ins and outs. Avoid nephrotoxins. Creatinine stable. Diabetes mellitus type 2 Insulin sliding scale Follow blood sugars Patient is currently on tube feeds Peripheral artery disease Coronary artery disease Follow clinically No chest pain Continue Coumadin. Global weakness Physical therapy. Most likely secondary to current illness. Will need rehabilitation versus CIR History of DVT Bilateral Doppler repeated which shows a superficial thrombosis. Continue with Coumadin. Pharmacy dosing. Increase Coumadin today, INR subtherapeutic DVT prophylaxis On Coumadin. Discharge Planning Improving. Discharged to [facility] in stable condition. To follow up as OP with PCP and consultants. Pt Condition on Discharge: Stable Discharge Disposition: Rehab Inpatient Discharge Time: > 30 minutes Discharge Instructions DIET: Follow Instructions for: As Tolerated, No Restrictions, On Tube Feeding Activities you can perform: Regular-No Restrictions Follow up Referrals: Allergy & Immunology Infectious Disease PCP Follow-up Pulmonology - 1 Week New Medications: Bedside Commode (Bedside Commode) 1 Mis Mis 1 EA .ROUTE DIRECTED #1 EA Levofloxacin (Levaquin) 750 Mg Tablet 750 MG PO DAILY pna #5 TAB Sennosides-Docusate Sodium (Senna Plus 8.6-50 mg) 1 Tab Tab 1 TAB PO BID Constipation #60 TAB Continued Medications: Albuterol 18 GM Inh (Ventolin Hfa 18 GM Inh) 90 Mcg/Act Aer 2 PUFF INH Q4H PRN SHORTNESS OF BREATH #1 Ref 0 INHALER Calcitriol (Calcitriol) 0.25 Mcg Cap 0.25 MCG PO DAILY Calcium Supplement #30 Ref 0 CAP Cilostazol (Cilostazol) 50 Mg Tab 50 MG PO BIDAC pvd #60 Ref 3 TAB Clopidogrel (Plavix) 75 Mg Tab 75 MG PO DAILY pvd #[address] (Cymbalta DR) 30 Mg Capdr 30 MG PO HS #30 Ref 0 CAP Fluticasone Nasal [place] (Flonase Nasal [place]) 50 Mcg/Act [place] 1 SPR EACH NARE DAILY Allergies #1 Ref 0 BOTTLE Gabapentin (Gabapentin) 300 Mg Cap 300 MG PO BID #60 Ref 0 CAP Hydrocodone-Acetaminophen (Corea) 10-325 Mg Tab 1 TAB PO Q6H PRN PAIN #10 Ref 0 TAB (This prescription has been renewed) Loratadine (Claritin) 10 Mg Tablet 10 MG PO DAILY Allergies Pantoprazole (Protonix) 40 Mg Tab 40 MG PO DAILY Reflux #30 Ref 0 TAB Patiromer Sorbitex Calcium (Veltassa) 8.4 Gm Pow 8.4 GM PO DAILY hyperkalemia #1 Ref 0 GM Sodium Bicarbonate (Sodium Bicarbonate) 325 Mg Tab 325 MG PO Q12HR renal dysfunction #1 Ref 0 TAB Tiotropium Inh (Spiriva Handihaler) 18 Mcg Cap 18 MCG INH DAILY 1 capsule = 18 mcg COPD #30 Ref 0 CAP Warfarin (Coumadin) 2 Mg Tab 2 MG PO DAILY@16 pvd #30 Ref 3 TAB Brenda Madrid MD Mar 03, 2017 10:59
[2017-03-03] MEDS ORDERED: HYDR-3366 PO (11:01)
[2017-03-03] MEDS ORDERED: SENN1TAB PO (11:01)
--- NOTE | 2017-03-03 11:19 | PD.ONC.PN ---
Subjective Subjective Remarks Afebrile overnight. Patient resting in bed in nad. Tolerating tube feeds. Remains on O2 via t-piece. Remains fatigued, deconditioned. Objective Data Date Time Temp Pulse Resp B/P Pulse Ox O2 Delivery O2 Flow Rate FiO2 03/03/17 08:04 96.4 97 21 150/72 98 03/03/17 04:35 108 03/03/17 04:16 141 03/03/17 04:00 97.2 110 19 152/86 97 03/03/17 03:45 107 03/03/17 00:12 114 03/03/17 00:00 97.1 116 20 160/82 98 03/02/17 23:06 99.8 03/02/17 20:51 98 T-piece 28 03/02/17 20:15 112 03/02/17 20:00 98.4 113 18 158/87 100 03/02/17 19:27 T-Piece 28 03/02/17 16:00 97.5 100 16 152/81 93 03/02/17 12:35 99 03/02/17 12:00 97.1 120 20 150/74 100 03/03/17 03/03/17 03/03/17 07:00 15:00 23:00 Intake Total 2190 ml Output Total 500 ml Balance 1690 ml Result Diagram: 03/02/17 0559 03/02/17 0559 Laboratory Results Laboratory Tests Test 03/03/17 05:08 Prothrombin Time 21.1 SEC Prothromb Time International 1.9 RATIO Ratio Administered Medications Medications (Trade) Dose Ordered Sig/Alea Route PRN Reason Start Time Stop Time Status Last Admin Dose Admin Miscellaneous Information 1 Q361D XX 02/22/17 22:15 02/22/17 22:15 Chlorhexidine Gluconate (Chlorhexidine 2% Cloth) Taper DAILY@04 TOP 02/23/17 04:00 02/19/18 03:59 03/01/17 04:00 Senna/Docusate Sodium (Genoveva-Colace) 1 tab BID PO 02/23/17 09:00 03/02/17 08:22 Magnesium Hydroxide (Milk Of Magnesia Liq) 30 ml Q12H PRN PO MILD - MODERATE CONSTIPATION 02/22/17 22:15 03/03/17 07:32 Lactulose (Lactulose Liq) 30 ml DAILY PRN PO SEVERE CONSITIPATION 02/22/17 22:15 02/26/17 12:27 Duloxetine HCl (Cymbalta Dr) 30 mg HS PO 02/23/17 21:00 03/02/17 22:53 Gabapentin (Neurontin) 300 mg BID PO 02/23/17 21:00 03/03/17 10:06 Loratadine (Claritin) 10 mg DAILY PO 02/24/17 09:00 03/03/17 10:07 Sodium Bicarbonate (Sodium Bicarbonate) 325 mg Q12HR PO 02/23/17 21:00 03/03/17 10:06 Tiotropium White (Spiriva Inh) 18 mcg DAILY INH 02/24/17 09:00 02/26/17 08:21 Oxycodone HCl (Roxicodone Intensol Liq) 10 mg Q4H PRN PO pain 1-5 02/23/17 16:00 03/03/17 00:13 Enalaprilat (Vasotec Inj) 1.25 mg Q6H PRN IV PUSH SBP>160, DBP>90 02/26/17 15:45 03/02/17 08:26 Clopidogrel Bisulfate (Plavix) 75 mg DAILY PO 02/27/17 09:00 03/03/17 10:06 Warfarin Sodium (Coumadin) 3 mg DAILY@16 PO 03/02/17 16:00 03/02/17 16:31 Lansoprazole 30 mg 30 mg DAILY NG 03/03/17 09:00 03/03/17 10:06 Ceftriaxone Sodium/Sodium Chloride (Rocephin Inj/NS Inj) 100 ml @ 200 mls/hr Q24H IV 03/02/17 15:00 03/02/17 15:00 Lorazepam (Ativan) 1 mg Q6H PRN PEG ANXIETY 03/02/17 13:00 03/03/17 00:23 Objective Remarks GENERAL: chronically ill male, lethargic, upright in chir SKIN: Warm and dry. HEAD: Normocephalic. EYES: No injection or drainage. NECK: Supple, trachea midline. trach in place, on 6L via t-piece. CARDIOVASCULAR: Regular rate and rhythm RESPIRATORY: scattered rhonchi GASTROINTESTINAL: Abdomen soft, non-tender, nondistended. receiving suplena TF via PEG tube EXTREMITIES: No cyanosis, or edema. NEUROLOGICAL: awake and alert, normal speech. moving all extremities. 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 --has a fairly large sized mass in his larynx which is occluding the airway. --status post tracheostomy. . --has multiple comorbidities. not a candidate for surgery. --palliative radiation treatments could be given. --poor candidate for any chemotherapy. --At this time we should focus on nutrition and physical therapy. --will follow up with Dr. Melchor in the clinic once he is discharged from the hospital. (2) Dysphagia Status: Chronic Plan: --has a PEG tube in place. 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 Monitor wt closely. Labs reviewed- monitor renal labs closely. (3) Microcytic anemia Status: Acute Plan: --iron studies show low iron --B12 WNL --IV iron sucrose given Assessment 66-year-old male who has a history of upper airway carcinoma. He is status post single modality treatment with radiation in 2016. He now presents with upper airway compromise with an enlarging mass. s/p tracheostomy, 02/23 History of laryngeal carcinoma. Hyperlipidemia. Depression. Congestive heart failure. Chronic obstructive pulmonary disease. Cerebrovascular accident. Gastroesophageal reflux disease. Hypertension. Plan 1. check CBC today 2. continue tube feeds 3. follow up in clinic once discharged Neeru Pritchett Mar 03, 2017 11:19
[2017-03-03 13:23] LABS: AUTOMATED NEUTROPHIL # 10.1 TH/MM3 (1.8-7.7); BASOPHIL # 0.1 TH/MM3 (0-0.2); BASOPHIL % 0.5 % (0.0-2.0); EOSINOPHIL # 0.1 TH/MM3 (0-0.4); EOSINOPHIL % 0.9 % (0.0-4.0); HEMATOCRIT 27.7 % (39.0-51.0); LYMPH % 5.5 % (9.0-44.0); LYMPHOCYTE # 0.7 TH/MM3 (1.0-4.8); MEAN CORPUSCULAR HEMOGLOBIN 24.9 PG (27.0-34.0); MEAN CORPUSCULAR HGB CONC 31.5 % (32.0-36.0); MONO % 9.7 % (0.0-8.0); NEUT % 83.4 % (16.0-70.0); PLATELET COUNT 354 TH/MM3 (150-450); RED BLOOD COUNT 3.51 MIL/MM3 (4.50-5.90); RED CELL DISTRIBUTION WIDTH 16.7 % (11.6-17.2); WHITE BLOOD COUNT 12.2 TH/MM3 (4.0-11.0)
[2017-03-03 13:27] LABS: HEMO FLAGS AUTO DIFF
[2017-03-03 13:50] LABS: ALKALINE PHOSPHATASE 158 U/L (45-117); ALT (GPT) 35 U/L (12-78); ANION GAP 8 MEQ/L (5-15); AST (GOT) 20 U/L (15-37); BICARBONATE 24.9 MEQ/L (21.0-32.0); BLOOD UREA NITROGEN 18 MG/DL (7-18); CHLORIDE 107 MEQ/L (98-107); GLOMERULAR FILTRATION RATE 41 ML/MIN (>89); POTASSIUM 4.5 MEQ/L (3.5-5.1); SODIUM (NA) 140 MEQ/L (136-145); TOTAL BILIRUBIN ADULT 0.3 MG/DL (0.2-1.0)
[2017-03-03 13:59] LABS: BANDS 8 % (0-6); CORRECTED NUCLEATED RBC 2 /100 WBC (0-0); METAMYELOCYTES 1 % (0-1); MYELOCYTES 1 % (0-0); NEUTROPHIL # MANUAL DIFF 10.6 TH/MM3 (1.8-7.7); PLATELET ESTIMATE SMEAR HIGH (NORMAL); PLATELET MORPHOLOGY NORMAL (NORMAL); POLYS (SEG NEUTROPHILS) 77 % (16-70); SCAN/DIFF FINAL DIFF MANUAL; WBC DIFF SAMPLE 100
[2017-03-03] MEDS ORDERED: LEVA750T9 PO (14:07)
--- NOTE | 2017-03-03 14:46 | EKG ---
Date Performed: 03/02/2017 Time Performed: 10:51:46 PTAGE: 66 years EKG: SINUS TACHYCARDIA WITH FREQUENT SUPRAVENTRICULAR PREMATURE COMPLEXES BORDERLINE LEFT AXIS D EVIATION NONSPECIFIC ST & T-WAVE ABNORMALITY Since previous tracing, no significant change noted ABNO RMAL ECG PREVIOUS TRACING : 02/27/2017 11.44 DOCTOR: Case Niño Interpretating Date/Time 03/03/2017 14:45:11
--- NOTE | 2017-03-03 14:46 | EKG ---
Date Performed: 03/02/2017 Time Performed: 13:59:18 PTAGE: 66 years EKG: Sinus rhythm POSSIBLE LEFT ATRIAL ENLARGEMENT NONSPECIFIC ST & T-WAVE ABNORMALITY Since previous tracing, no sign ificant change noted ABNORMAL ECG PREVIOUS TRACING : 03/02/2017 10.51 DOCTOR: Case Niño Interpretating Date/Time 03/03/2017 14:45:56
[2017-03-03] MEDS: WARFARIN SOD 3 MG TAB PO SCH (16:04)
[2017-03-03] MEDS: cefTRIAXone INJ 1,000 MG in SODIUM CHLORIDE 0.9% INJ 100 ML IV SCH (16:05)
== END 2017-03-03 17:39 | DRG 11 ==
LOC: NEPC 17:16 → NEDA 22:06 → N03B 22:53 → HOCB 02-26 19:55
PROVIDERS: ADMIT Hospitalist; ATTEND Hospitalist
PROC: 30233K1 Transfusion of Nonautologous Frozen Plasma into Peripheral Vein, Percutaneous Approach (ICD-10-PCS; principal; 2017-02-22)
PROC: 0B110F4 Bypass Trachea to Cutaneous with Tracheostomy Device, Open Approach (ICD-10-PCS; 2017-02-23)
DX: C32.9 Malignant neoplasm of larynx, unspecified (principal); J69.0 Pneumonitis due to inhalation of food and vomit; J96.01 Acute respiratory failure with hypoxia; J15.0 Pneumonia due to Klebsiella pneumoniae; N17.9 Acute kidney failure, unspecified; D68.8 Other specified coagulation defects; I13.0 Hypertensive heart and chronic kidney disease with heart failure and stage 1 through stage 4 chronic kidney disease, or unspecified chronic kidney disease; N18.4 Chronic kidney disease, stage 4 (severe); I50.9 Heart failure, unspecified; Q61.3 Polycystic kidney, unspecified; J44.0 Chronic obstructive pulmonary disease with (acute) lower respiratory infection; R04.2 Hemoptysis; E11.51 Type 2 diabetes mellitus with diabetic peripheral angiopathy without gangrene; I65.21 Occlusion and stenosis of right carotid artery; R13.10 Dysphagia, unspecified; I25.10 Atherosclerotic heart disease of native coronary artery without angina pectoris; K21.9 Gastro-esophageal reflux disease without esophagitis; F41.9 Anxiety disorder, unspecified; I70.203 Unspecified atherosclerosis of native arteries of extremities, bilateral legs; J98.8 Other specified respiratory disorders; I49.3 Ventricular premature depolarization; E87.5 Hyperkalemia; E86.0 Dehydration; D50.9 Iron deficiency anemia, unspecified; E78.5 Hyperlipidemia, unspecified; E11.22 Type 2 diabetes mellitus with diabetic chronic kidney disease; E11.621 Type 2 diabetes mellitus with foot ulcer; L97.529 Non-pressure chronic ulcer of other part of left foot with unspecified severity; Z95.1 Presence of aortocoronary bypass graft; Z95.5 Presence of coronary angioplasty implant and graft; Z87.891 Personal history of nicotine dependence; Z86.718 Personal history of other venous thrombosis and embolism; Z93.1 Gastrostomy status
CPT/HCPCS: 36430; 36556; 70450; 71010; 71020; 76937; 80048; 80053; 80076; 81001; 82607; 82747; 82948; 83540; 83550; 83605; 84466; 85007; 85025; 85027; 85610; 85730; 86850; 86900; 86901; 86927; 87040; 87070; 87077; 87186; 87205; 87641; 93005; 93970; 94640; 94664; A7521; C9113; J0692; J0696; J1756; J1815; J2250; J7030; J7608; P9017

== ENCOUNTER 2017-03-17 07:39 | Day surgery (SDC) | payer MEDICARE, MEDICAID ==
[2017-03-14 13:45] VITALS: BP 155/73; PULSE 119; RESP 20; TEMP 97.5; O2SAT 97
[~2017-03-17] VITALS: Ht 182.9 cm; Wt 79.1 kg
[~2017-03-17 07:39] MED LIST changes: +ALPR.25 G-TUBE; -ATOR40TA16 PO; -CALC0.25 PO; +CALC1SOL G-TUBE; +CILO50TA G-TUBE; -CILO50TA PO; +CLAR5SYP2 G-TUBE; +COUM2.5T G-TUBE; -COUM2TAB PO; -CYMB30CA PO; -FLUT1SPR5 EACH NARE; +GABA250S7 G-TUBE; -GABA300C5 PO; -HYDR-3366 PO; +HYDR0.1S8 G-TUBE; +IPRASOL INH; +LACT10SO27 G-TUBE; +LIDO1PAD52 TOPICAL; -LORA-361 PO; -METO25TA3 PO; +METO50TA G-TUBE; +MIRA3350 G-TUBE; +NOVOLOGP2 SQ; -PATI1POW PO; +PERI8.6T G-TUBE; +PLAV75TA29 G-TUBE; -PLAV75TA29 PO; +PREV30TA3 G-TUBE; -PROTPAK PO; +SODI325T G-TUBE; -SODI325T PO; -SPIRCAP INH; +TEMA15CA G-TUBE; -VENTAER INH; +VITA250T3 G-TUBE; +ZOFR4SOL G-TUBE; -[UNRECOGNIZED DRUG - CODE]
[2017-03-17] MEDS ORDERED: KETAMINE HCL 500 MG/5 ML VIAL ONE (08:00)
[2017-03-17] MEDS ORDERED: DO NOT ADM ANY ANTICOAGULANT DRUGS PRN (08:47)
--- NOTE | 2017-03-17 08:47 | MR ---
cc: WINIFRED VITALE M.D. DATE: 03/17/2017 PROCEDURE Fiberoptic bronchoscopy, flexible. REASON FOR BRONCHOSCOPY Hemoptysis, rule out underlying malignancy, rule out infectious process or other. DETAILS OF PROCEDURE Fiberoptic bronchoscopy performed via tracheostomy tube. Lower trachea hyperemic, no mass lesion or obstruction. Ricarda sharp. Right main stem bronchus, right upper, middle and lower lobes, left main bronchus, left upper and lower lobes no obstruction or mass lesion seen. Washings obtained from both sides of the tracheobronchial tree for routine, TB, fungal culture, as well as cytological exam. Procedure well-tolerated. Patient transferred to Recovery in stable condition. IMPRESSION 1. Mild tracheobronchitis. 2. No obstruction or mass lesion. 3. No active bleeding. 4. Procedure well-tolerated. 5. Samples obtained as above. 6. Patient transferred to Recovery in stable condition. MD ANGELICA Tenorio/SANGITA /8:36 AM /8:44 AM
[2017-03-17 10:00] VITALS: BP 138/69; PULSE 104; RESP 16; TEMP 98.5; O2SAT 95
[2017-03-17] MEDS ORDERED: [UNRECOGNIZED DRUG - SUPPLY] (13:22)
[2017-03-17] MEDS ORDERED: ARGY3MIS8 (13:22)
[2017-03-17] MEDS ORDERED: [UNRECOGNIZED DRUG - SUPPLY] (13:22)
[2017-03-17] MEDS ORDERED: [UNRECOGNIZED DRUG - SUPPLY] (13:22)
[2017-03-17] MEDS ORDERED: [UNRECOGNIZED DRUG - SUPPLY] (13:22)
[2017-03-17] MEDS ORDERED: [UNRECOGNIZED DRUG - SUPPLY] (13:22)
[2017-03-17] MEDS ORDERED: [UNRECOGNIZED DRUG - SUPPLY] (13:22)
[2017-03-17] MEDS ORDERED: [UNRECOGNIZED DRUG - SUPPLY] (13:22)
[2017-03-17] MEDS ORDERED: [UNRECOGNIZED DRUG - SUPPLY] (13:22)
[2017-03-17] MEDS ORDERED: [UNRECOGNIZED DRUG - CODE] (13:22)
[2017-03-17] MEDS ORDERED: [UNRECOGNIZED DRUG - SUPPLY] (13:22)
[2017-03-17] MEDS ORDERED: [UNRECOGNIZED DRUG - SUPPLY] (13:22)
[2017-03-17] MEDS ORDERED: [UNRECOGNIZED DRUG - SUPPLY] (13:22)
[2017-03-17] MEDS ORDERED: [UNRECOGNIZED DRUG - SUPPLY] (13:22)
[2017-03-17] MEDS ORDERED: [UNRECOGNIZED DRUG - OTHER] (13:22)
[2017-03-17] MEDS ORDERED: CATHETER (13:22)
[2017-03-18] MEDS ORDERED: GETGO ROLLING W1 MI1 (12:19)
[2017-03-18] MEDS ORDERED: HOSP BED1 (12:19)
[2017-03-19] MEDS ORDERED: NEBUMIS25 (09:47)
[2017-03-20] MEDS ORDERED: IPRASOL INH (10:26)
[2017-03-20] MEDS ORDERED: CLAR5SYP2 G-TUBE (10:26)
[2017-03-20] MEDS ORDERED: HYDR0.1S8 G-TUBE (10:26)
[2017-03-20] MEDS ORDERED: PREV30TA3 G-TUBE (10:26)
[2017-03-20] MEDS ORDERED: VITA250T3 G-TUBE (10:26)
[2017-03-20] MEDS ORDERED: GABA250S7 G-TUBE (10:26)
[2017-03-20] MEDS ORDERED: SODI325T G-TUBE (10:26)
[2017-03-20] MEDS ORDERED: ALPR.25 G-TUBE (10:26)
[2017-03-20] MEDS ORDERED: ZOFR4SOL G-TUBE (10:26)
[2017-03-20] MEDS ORDERED: CALC1SOL PEG (10:26)
[2017-03-20] MEDS ORDERED: COLL30T TOPICAL (10:26)
[2017-03-20] MEDS ORDERED: CILO50TA G-TUBE (10:26)
[2017-03-20] MEDS ORDERED: PLAV75TA29 G-TUBE (10:26)
[2017-03-20] MEDS ORDERED: LEVS0.123 G-TUBE (10:26)
[2017-03-20] MEDS ORDERED: MIRA3350 G-TUBE (10:26)
[2017-03-20] MEDS ORDERED: METO50TA G-TUBE (10:26)
[2017-03-20] MEDS ORDERED: TEMA15CA G-TUBE (10:26)
== END 2017-03-17 10:00 | disposition home or self-care (01) ==
LOC: HSDC 07:39
PROVIDERS: ATTEND Internal Medicine Sleep Medicine
DX: C32.9 Malignant neoplasm of larynx, unspecified (principal); J40 Bronchitis, not specified as acute or chronic; B96.89 Other specified bacterial agents as the cause of diseases classified elsewhere; I10 Essential (primary) hypertension; E78.5 Hyperlipidemia, unspecified; I50.9 Heart failure, unspecified; I25.10 Atherosclerotic heart disease of native coronary artery without angina pectoris; Z95.1 Presence of aortocoronary bypass graft
CPT/HCPCS: 00520; 31622; 87015; 87070; 87077; 87102; 87116; 87186; 87205; 87206; 88112; 88305; A7520

== ENCOUNTER 2017-03-22 00:50 | Emergency (ER) | payer MEDICARE, MEDICAID ==
[~2017-03-22] VITALS: Ht 185.4 cm; Wt 76.0 kg
[~2017-03-22 00:50] MED LIST changes: +ARGY3MIS8; -CALC1SOL G-TUBE; +CALC1SOL PEG; +CATHETER; +COLL30T TOPICAL; -COUM2.5T G-TUBE; +GETGO ROLLING W1 MI1; +HOSP BED1; -LACT10SO27 G-TUBE; +LEVS0.123 G-TUBE; -LIDO1PAD52 TOPICAL; +NEBUMIS25; -NOVOLOGP2 SQ; -PERI8.6T G-TUBE; +[UNRECOGNIZED DRUG - CODE]; +[UNRECOGNIZED DRUG - OTHER]; +[UNRECOGNIZED DRUG - SUPPLY]; +[UNRECOGNIZED DRUG - SUPPLY]; +[UNRECOGNIZED DRUG - SUPPLY]; +[UNRECOGNIZED DRUG - SUPPLY]; +[UNRECOGNIZED DRUG - SUPPLY]; +[UNRECOGNIZED DRUG - SUPPLY]; +[UNRECOGNIZED DRUG - SUPPLY]; +[UNRECOGNIZED DRUG - SUPPLY]; +[UNRECOGNIZED DRUG - SUPPLY]; +[UNRECOGNIZED DRUG - SUPPLY]; +[UNRECOGNIZED DRUG - SUPPLY]; +[UNRECOGNIZED DRUG - SUPPLY]
[2017-03-22 00:55] VITALS: BP 117/59; PULSE 93; RESP 18; TEMP 98.6; O2SAT 99
--- NOTE | 2017-03-22 01:21 | PD ---
HPI Chief Complaint: Coordinator Of Rehabilitation Services Problem Time Seen by Provider: 01:07 Travel History International Travel<30 days: No Contact w/Intl Traveler<30days: No Traveled to known affect area: No History of Present Illness HPI The patient is a 66-year-old male that has a tracheostomy tube. He coughed it out tonight at about 12:30. The people at home did not feel comfortable putting it back in, the granddaughter will get an educational class on tracheostomy care later on this morning. The patient has a laryngeal tumor. 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) Cardiac Catheterization: Yes Cardiovascular Problems: Yes (CHF , CABG, STENT) High Cholesterol: Yes Chemotherapy: Yes (laryngeal) Congestive Heart Failure: Yes COPD: Yes Cerebrovascular Accident: Yes (TIA 02/16/2017 ) Coronary Artery Disease: Yes Diabetes: Yes Patient Takes Glucophage: No Diminished Hearing: No Endocrine: Yes Gastrointestinal Disorders: Yes GERD: Yes Genitourinary: Yes (POLYCYSTIC KIDNEY DISEASE) Headaches: Yes Hypertension: Yes Immune Disorder: No Implanted Vascular Access Dvce: No Kidney Stones: Yes Musculoskeletal: Yes Neurologic: Yes Psychiatric: No Reproductive: No Respiratory: Yes (COPD ) Immunizations Current: Yes Myocardial Infarction: Yes Radiation Therapy: Yes Renal Failure: Yes Thyroid Disease: No Influenza Vaccination: Yes Past Surgical History Abdominal Surgery: Yes (GALLBALADDER REMOVAL) Arteriovenous Shunt: No Cardiac Surgery: Yes (QUAD BIPASS, BILAT FEM, STENTS, CORONARY ANGIO, CHF ) Cholecystectomy: Yes Coronary Artery Bypass Graft: Yes Coronary Stent: Yes Ear Surgery: No Endocrine Surgery: No Eye Surgery: No Genitourinary Surgery: No Gynecologic Surgery: No Insulin Pump: No Joint Replacement: Yes (SCREWS IN LEFT SHOULDER) Oral Surgery: Yes (THROAT DIALATION) Thoracic Surgery: Yes Tonsillectomy: Yes Other Surgery: Yes Family History Family Myocardial Infarction: Yes Social History Alcohol Use: No Tobacco Use: No (QUIT 2008) Substance Use: No Allergies-Medications (Allergen,Severity, Reaction): Coded Allergies: HMG-CoA Reductase Inhibitors (Verified Allergy, Severe, 03/22/17) Niacin (Verified Allergy, Severe, 03/22/17) CAUSES HIM TO FEEL HOT Oily Fish (Verified Allergy, Intermediate, Diarrhea, 03/22/17) Reported Meds & Prescriptions Reported Meds & Active Scripts Active Levsin (Hyoscyamine Sulfate) 0.125 Mg Tab 0.125 Mg G-TUBE BID Santyl (Collagenase) 250 Unit/Gm Oin 1 Applic TOPICAL DAILY 30 Days Calcitriol Liq (Calcitriol) 1 Mcg/Ml Soln 0.25 Mcg PEG DAILY 30 Days Xanax (Alprazolam) 0.25 Mg Tab 0.25 Mg G-TUBE Q8HR PRN Duoneb (Ipratropium-Albuterol Neb) 0.5-2.5 Mg/3 Ml Neb 1 Nebule INH Q4HR NEB PRN Gabapentin Liq (Gabapentin) 250 Mg/5 Ml Soln 250 Mg G-TUBE BID Sodium Bicarbonate 325 Mg Tab 325 Mg G-TUBE BIDPC Cilostazol 50 Mg Tab 50 Mg G-TUBE BID Prevacid Solutab ODT (Lansoprazole) 30 Mg Tab 30 Mg G-TUBE DAILY Mix with 4 ml water before giving via tube. Claritin Liq (Loratadine) 5 Mg/5 Ml Liq 10 Mg G-TUBE DAILY 30 Days Plavix (Clopidogrel Bisulfate) 75 Mg Tab 75 Mg G-TUBE DAILY Vitamin C (Ascorbic Acid) 250 Mg Tab 500 Mg G-TUBE BID Zofran Liq (Ondansetron HCl) 4 Mg/5 Ml Soln 4 Mg G-TUBE Q4HR PRN Miralax Powder (Polyethylene Glycol 3350 Powder) 17 Gm Powd 17 Gm G-TUBE DAILY PRN Mix and dissolve one measuring cap-ful (17 grams) in water or juice. Metoprolol Tartrate 50 Mg Tab 50 Mg G-TUBE BID Hycet Liq (Hydrocodone-Acetaminophen Liq) 7.5-325 Mg/15 Ml Soln 15 Ml G-TUBE Q8HR PRN Temazepam 15 Mg Cap 15 Mg G-TUBE HS PRN Easy Air Compressor Nebulizer 1 Mis Mis 1 Ea .ROUTE DIRECTED Hospital Bed - Electric 1 Ea Ea 1 Ea .ROUTE DIRECTED Walker Rolling/GetGo (Device) 1 Mis Mis 1 Ea .ROUTE DIRECTED [In line Neb ALE] Ea [aeresol bottles] Ea [air compressor] Ea [drain bags] Ea [corrugated tubing] Box [suction machine] Ea [place]berry Suction Tubing/Mol (Feeding Tubes - Tubing) 1 Mis Mis Ea [suction canister] Ea [suction [id number]] Ea [yankauer] Ea [trach gauze] Box Excilon Drain Sponges 4"X 4"X4" (Gauze Pads & Dressings) 1 Pad Pad Box [trach mask] Ea [trach ties] Ea [trach care kits] Ea [inner cannula] Ea Review of Systems Except as stated in HPI: all other systems reviewed are Neg Physical Exam Narrative GENERAL: Well-nourished, well-developed patient in no respiratory distress. His vital signs are normal. Oximetry is 99%. SKIN: Focused skin assessment warm/dry. HEAD: Normocephalic. EYES: No scleral icterus. No injection or drainage. NECK: Supple, trachea midline. No JVD or lymphadenopathy. No neck vein distention is present. CARDIOVASCULAR: Regular rate and rhythm without murmurs, gallops, or rubs. RESPIRATORY: Breath sounds equal bilaterally. No accessory muscle use. Lungs clear to auscultation bilaterally. GASTROINTESTINAL: Abdomen soft, non-tender, nondistended. No guarding or rebound is present. MUSCULOSKELETAL: No cyanosis, or edema. BACK: Nontender without obvious deformity. No CVA tenderness. Data Data Last Documented VS Vital Signs Date Time Temp Pulse Resp B/P Pulse Ox O2 Delivery O2 Flow Rate FiO2 03/22/17 00:55 98.6 93 18 117/59 99 MDM Medical Decision Making Medical Screen Exam Complete: Yes Emergency Medical Condition: Yes Medical Record Reviewed: Yes Differential Diagnosis Displaced laryngeal tube, aspiration pneumonia Narrative Course The patient has a displaced door and a tube which was replaced. There is no clinical evidence of aspiration. Procedures Procedure Narrative The patient's tracheostomy tube was reinserted after copious cleaning. An obturator had to be obtained before placement. Diagnosis Primary Impression: Complication of tracheostomy tube Additional Instructions: Attend class on tracheostomy tube care. We will be glad to see him if he coughs it out again. Follow-up next week with his physician that takes care of his tracheostomy tube. Med/Other Pt SpecificInfo: No Change to Meds Disposition: 01 DISCHARGE HOME Condition: Stable Santo Lorenzo MD Mar 22, 2017 01:21
[2017-03-22 01:24] VITALS: PULSE 90; RESP 18; O2SAT 97
== END 2017-03-22 01:37 | disposition home or self-care (01) ==
LOC: PHED 00:50
DX: J95.09 Other tracheostomy complication (principal); Z43.0 Encounter for attention to tracheostomy; Z95.1 Presence of aortocoronary bypass graft; I50.9 Heart failure, unspecified; I11.0 Hypertensive heart disease with heart failure; Z86.73 Personal history of transient ischemic attack (TIA), and cerebral infarction without residual deficits; J44.9 Chronic obstructive pulmonary disease, unspecified; E11.9 Type 2 diabetes mellitus without complications; K21.9 Gastro-esophageal reflux disease without esophagitis
CPT/HCPCS: 31502

== ENCOUNTER 2017-03-25 09:33 | Inpatient (IN) | payer MEDICARE, OTHER ==
[~2017-03-25] VITALS: Ht 188 cm; Wt 85.3 kg
[2017-03-25] VITALS (13 sets, daily range): BP systolic 99–140; BP diastolic 53–63; PULSE 92–137; RESP 13–25; TEMP 98.8–103.5; O2SAT 92–100
[2017-03-25] MEDS ORDERED: SODIUM CHLORIDE 0.9% FLUSH 5 ML FLUSH IV FLUSH PRN (09:45)
--- NOTE | 2017-03-25 10:02 | PD ---
HPI Chief Complaint: Respiratory Distress Time Seen by Provider: 09:45 Travel History International Travel<30 days: No Contact w/Intl Traveler<30days: No Traveled to known affect area: No History of Present Illness HPI 66-year-old male with past medical history of esophageal cancer with tracheostomy and G-tube in place presenting for respiratory distress and altered mental status. Last has baseline level of functioning yesterday evening according to EVAC report. Developed respiratory distress this morning, prompting concern from his . EMS was called, and at the scene patient had an oxygen saturation of 77%. On route to ER, and mucous plug was removed from his tracheostomy, and oxygen saturation recovered into the 90s on room air. History from patient is limited at this time due to altered mental status. and daughter at bedside to provide additional history. Per , patient last seen normal around 0130 AM. At that time he had a mild headache but no other concerns. Then on waking up at 0330 he had the symptoms noted above. Had not been having CP. 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) Cardiac Catheterization: Yes Cardiovascular Problems: Yes (CHF , CABG, STENT) High Cholesterol: Yes Chemotherapy: Yes Congestive Heart Failure: Yes COPD: Yes Cerebrovascular Accident: Yes (TIA 02/16/2017 ) Coronary Artery Disease: Yes Diabetes: Yes Diminished Hearing: No Endocrine: Yes Gastrointestinal Disorders: Yes GERD: Yes Genitourinary: Yes (POLYCYSTIC KIDNEY DISEASE) Headaches: Yes Hypertension: Yes Immune Disorder: No Implanted Vascular Access Dvce: No Kidney Stones: Yes Musculoskeletal: Yes Neurologic: Yes Psychiatric: No Reproductive: No Respiratory: Yes (COPD ) Immunizations Current: Yes Myocardial Infarction: Yes Radiation Therapy: Yes Renal Failure: Yes Thyroid Disease: No ?: Not Past Surgical History Abdominal Surgery: Yes (GALLBALADDER REMOVAL) Arteriovenous Shunt: No Cardiac Surgery: Yes (QUAD BIPASS, BILAT FEM, STENTS, CORONARY ANGIO, CHF ) Cholecystectomy: Yes Coronary Artery Bypass Graft: Yes Coronary Stent: Yes Ear Surgery: No Endocrine Surgery: No Eye Surgery: No Genitourinary Surgery: No Gynecologic Surgery: No Insulin Pump: No Joint Replacement: Yes (SCREWS IN LEFT SHOULDER) Oral Surgery: Yes (THROAT DIALATION) Thoracic Surgery: Yes Tonsillectomy: Yes Other Surgery: Yes Family History Family History: Negative Social History Alcohol Use: No Tobacco Use: No (QUIT 2008) Substance Use: No Allergies-Medications (Allergen,Severity, Reaction): Coded Allergies: HMG-CoA Reductase Inhibitors (Verified Allergy, Severe, 03/22/17) Niacin (Verified Allergy, Severe, 03/22/17) CAUSES HIM TO FEEL HOT Oily Fish (Verified Allergy, Intermediate, Diarrhea, 03/22/17) Reported Meds & Prescriptions Reported Meds & Active Scripts Active Levsin (Hyoscyamine Sulfate) 0.125 Mg Tab 0.125 Mg G-TUBE BID Santyl (Collagenase) 250 Unit/Gm Oin 1 Applic TOPICAL DAILY 30 Days Calcitriol Liq (Calcitriol) 1 Mcg/Ml Soln 0.25 Mcg PEG DAILY 30 Days Xanax (Alprazolam) 0.25 Mg Tab 0.25 Mg G-TUBE Q8HR PRN Duoneb (Ipratropium-Albuterol Neb) 0.5-2.5 Mg/3 Ml Neb 1 Nebule INH Q4HR NEB PRN Gabapentin Liq (Gabapentin) 250 Mg/5 Ml Soln 250 Mg G-TUBE BID Sodium Bicarbonate 325 Mg Tab 325 Mg G-TUBE BIDPC Cilostazol 50 Mg Tab 50 Mg G-TUBE BID Claritin Liq (Loratadine) 5 Mg/5 Ml Liq 10 Mg G-TUBE DAILY 30 Days Plavix (Clopidogrel Bisulfate) 75 Mg Tab 75 Mg G-TUBE DAILY Zofran Liq (Ondansetron HCl) 4 Mg/5 Ml Soln 4 Mg G-TUBE Q4HR PRN Miralax Powder (Polyethylene Glycol 3350 Powder) 17 Gm Powd 17 Gm G-TUBE DAILY PRN Mix and dissolve one measuring cap-ful (17 grams) in water or juice. Metoprolol Tartrate 50 Mg Tab 50 Mg G-TUBE BID Reported Pantoprazole (Pantoprazole Sodium) 40 Mg Tab 40 Mg PO DAILY [place] (Hydrocodone-Acetaminophen) 10-325 Mg Tab 1 Tab G-TUBE QID PRN Vitamin C (Ascorbic Acid) 250 Mg Tab 250 Mg G-TUBE BID Review of Systems ROS Limitations: Clinical Condition, Altered Mental Status Physical Exam Exam Limitations: Clinical Condition, Altered Mental Status Narrative GENERAL: WDWN elderly white male sitting up in bed appearing confused but in no distress SKIN: No rashes, ecchymoses or lesions. Cool and dry. HEAD: NC/AT EYES: PERRL. EOMI. No conjunctival injection or drainage. ENT: MMM, OP without erythema, tonsillar swelling, or exudate. NECK: Supple, no lymphadenopathy. No JVD. CARDIOVASCULAR: NRRR. Normal S1/S2. No MRG RESPIRATORY: CTAB. No crackles or wheezes. GASTROINTESTINAL: Abdomen soft, non-distended, non-tender. No hepato- splenomegaly or palpable masses. BACK: Stage 1 sacral decubitus ulcer. MUSCULOSKELETAL: Extremities without clubbing, cyanosis, or edema. NEUROLOGICAL: Drowsy. Awakens to voice. Squeezes hands and tries to move legs on command, but difficult to assess due to level of consciousness. Cranial nerves II through XII grossly intact. Moves all extremities without difficulty. Normal speech. Data Data Last Documented VS Vital Signs Date Time Temp Pulse Resp B/P Pulse Ox O2 Delivery O2 Flow Rate FiO2 03/25/17 10:19 103.5 98 Non-Rebreather 10 03/25/17 10:11 100 03/25/17 09:58 135 25 122/58 Orders Electrocardiogram (03/25/17 09:43) Basic Metabolic Panel (Bmp) (03/25/17 09:43) Complete Blood Count With Diff (03/25/17 09:43) Creatine Kinase (Cpk) (03/25/17 09:43) Troponin I (03/25/17 09:43) Urinalysis - C+S If Indicated (03/25/17 09:43) Lactic Acid Sepsis Protocol (03/25/17 09:43) Blood Culture (03/25/17 09:43) Blood Glucose (03/25/17 09:43) Ecg Monitoring (03/25/17 09:43) Iv Access Insert/Monitor (03/25/17 09:43) Oximetry (03/25/17 09:43) Sodium Chloride 0.9% Flush (Ns Flush) (03/25/17 09:45) Chest, Single Ap (03/25/17 ) Prothrombin Time / Inr (Pt) (03/25/17 09:53) Sputum Culture And Gram Stain (03/25/17 10:02) Ct Brain W/O Iv Contrast(Rout) (03/25/17 ) Resp Pulse Oximetry (03/25/17 ) Resp Oxygen Govind C Titrat 1-4 L (03/25/17 ) Piperacil-Tazo 4.5 Gm Premix (Zosyn 4.5 (03/25/17 10:30) Vancomycin Inj (Vancomycin Inj) (03/25/17 10:30) Arterial Blood Gas (Abg) (03/25/17 ) Urinary Catheter Management MALKA.Q8H (03/25/17 10:30) Sodium Chlor 0.9% 250 Ml Inj (Ns 250 Ml (03/25/17 10:45) Metronidazole 500 Mg Inj (Flagyl 500 Mg (03/25/17 12:00) Acetaminophen 650 Mg/20 Ml Liq (Tylenol (03/25/17 11:00) Ventilation & Perfusion Scan (03/25/17 ) Urine Culture (03/25/17 11:10) Labs Laboratory Tests Test 03/25/17 03/25/17 03/25/17 10:10 10:38 11:10 White Blood Count 14.2 TH/MM3 Red Blood Count 3.31 MIL/MM3 Hemoglobin 8.6 GM/DL Hematocrit 27.3 % Mean Corpuscular Volume 82.5 FL Mean Corpuscular Hemoglobin 26.1 PG Mean Corpuscular Hemoglobin 31.6 % Concent Red Cell Distribution Width 17.8 % Platelet Count 331 TH/MM3 Mean Platelet Volume 8.7 FL Neutrophils (%) (Auto) 85.7 % Lymphocytes (%) (Auto) 2.1 % Monocytes (%) (Auto) 11.5 % Eosinophils (%) (Auto) 0.1 % Basophils (%) (Auto) 0.6 % Neutrophils # (Auto) 12.2 TH/MM3 Lymphocytes # (Auto) 0.3 TH/MM3 Monocytes # (Auto) 1.6 TH/MM3 Eosinophils # (Auto) 0.0 TH/MM3 Basophils # (Auto) 0.1 TH/MM3 CBC Comment DIFF FINAL Differential Comment Prothrombin Time 12.3 SEC Prothromb Time International 1.1 RATIO Ratio Sodium Level 134 MEQ/L Potassium Level 4.7 MEQ/L Chloride Level 99 MEQ/L Carbon Dioxide Level 25.4 MEQ/L Anion Gap 10 MEQ/L Blood Urea Nitrogen 33 MG/DL Creatinine 2.21 MG/DL Estimat Glomerular Filtration 30 ML/MIN Rate Random Glucose 172 MG/DL Lactic Acid Level 1.7 mmol/L Calcium Level 8.6 MG/DL Total Creatine Kinase 36 U/L Troponin I 0.02 NG/ML Blood Gas Puncture Site RT BRACHIAL Blood Gas Patient Temperature 98.6 Blood Gas HCO3 24 mmol/L Blood Gas Base Excess 0.1 mmol/L Blood Gas Oxygen Saturation 83 % Arterial Blood pH 7.43 Arterial Blood Partial 37 mmHg Pressure CO2 Arterial Blood Partial 50 mmHG Pressure O2 Arterial Blood Oxygen Content 10.3 Vol % Arterial Blood 1.9 % Carboxyhemoglobin Arterial Blood Methemoglobin 0.4 % Blood Gas Hemoglobin 8.8 G/DL Blood Gas Inspired Oxygen 21 % Urine Color YELLOW Urine Turbidity CLEAR Urine pH 5.5 Urine Specific [place] 1.021 Urine Protein 30 mg/dL Urine Glucose (UA) NEG mg/dL Urine Ketones NEG mg/dL Urine Occult Blood NEG Urine Nitrite NEG Urine Bilirubin NEG Urine Urobilinogen LESS THAN 2.0 MG/DL Urine Leukocyte Esterase NEG Urine RBC 3 /hpf Urine WBC 1 /hpf Urine WBC Clumps RARE Urine Hyaline Casts 3 /lpf Microscopic Urinalysis Comment CATH-CULTURE IND MDM Medical Decision Making Medical Screen Exam Complete: Yes Emergency Medical Condition: Yes Medical Record Reviewed: Yes Differential Diagnosis Sepsis, aspiration pneumonia, UTI, healthcare associated pneumonia, cerebral ischemia, hematoma, PE, IA. Narrative Course Received vancomycin, Zosyn, and for empiric antibiotic coverage of severe sepsis with suspected pulmonary source. Caution with fluids due to renal impairment and cardiac history, but giving 250 cc boluses titrated based on symptoms with final goal of 1 L. Labs showing leukocytosis with neutrophilia. CXR showing no acute process. CT head negative for hematoma, acute infarction ( initial read by myself, final read pending). VQ scan pending for rule out of pulmonary embolism. Procedures Procedure Narrative EKG showing sinus tachycardia (mild), and nonspecific ST-T wave changes in the lateral leads. EKG Prior to Arrival: No Sepsis Criteria SIRS Criteria (2 or more): Temp > 100.9 or < 96.8 Sepsis Criteria (SIRS+source): Infect source susp/known Severe Sepsis (+one): Organ Dysfunction Criteria Outcome: Meets severe sepsis criteria Diagnosis Primary Impression: Acute respiratory failure Qualified Code: J96.01 - Acute respiratory failure with hypoxia Additional Impressions: Acute on chronic kidney failure Qualified Code: N17.9 - Acute renal failure superimposed on chronic kidney disease, unspecified CKD stage, unspecified acute renal failure type Delirium due to another medical condition Admitting Information Admitting Physician Requests: Admit Wai Vizcarra MD R1 Mar 25, 2017 10:02
[2017-03-25] MEDS ORDERED: VANCOMYCIN INJ 1,000 MG in SODIUM CHLOR 0.9% 250 ML INJ 250 ML IV ONE (10:30)
[2017-03-25] MEDS ORDERED: PIPERACIL-TAZO 4.5 GM PREMIX 100 ML IV ONE (10:30)
[2017-03-25 10:31] LABS: AUTOMATED NEUTROPHIL # 12.2 TH/MM3 (1.8-7.7); BASOPHIL # 0.1 TH/MM3 (0-0.2); BASOPHIL % 0.6 % (0.0-2.0); EOSINOPHIL % 0.1 % (0.0-4.0); HEMATOCRIT 27.3 % (39.0-51.0); HEMO FLAGS DIFF FINAL; LYMPH % 2.1 % (9.0-44.0); LYMPHOCYTE # 0.3 TH/MM3 (1.0-4.8); MEAN CELL VOLUME 82.5 FL (80.0-100.0); MEAN CORPUSCULAR HEMOGLOBIN 26.1 PG (27.0-34.0); MEAN CORPUSCULAR HGB CONC 31.6 % (32.0-36.0); MONO % 11.5 % (0.0-8.0); NEUT % 85.7 % (16.0-70.0); PLATELET COUNT 331 TH/MM3 (150-450); RED BLOOD COUNT 3.31 MIL/MM3 (4.50-5.90); RED CELL DISTRIBUTION WIDTH 17.8 % (11.6-17.2); WHITE BLOOD COUNT 14.2 TH/MM3 (4.0-11.0)
--- NOTE | 2017-03-25 10:37 | RADRPT ---
EXAM DATE/TIME: 03/25/2017 09:47 [facility] COMPARISON: CHEST SINGLE AP, March 19, 2017, 15:09. INDICATIONS : Short of breath. MEDICAL HISTORY : Chronic obstructive pulmonary disease. Congestive heart failure. end stage throat cancer SURGICAL HISTORY : CABG. Coronary artery stent. tracheostomy, peg tube ENCOUNTER: Initial ACUITY: 1 day PAIN SCORE: Non-responsive. LOCATION: Bilateral chest FINDINGS: A single view of the chest demonstrates the lungs to be symmetrically aerated without evidence of mas s, infiltrate or effusion. Minimal atelectatic changes medially in the left base. The cardiomediasti nal contours are unremarkable. Osseous structures are intact. Surgical clips in the right perihilar distribution and right upper lung. Fracture of the most cephalad median sternotomy wire. Tracheostomy tube is stable in position with the tip at the clavicular heads. CONCLUSION: 1. Minimal atelectatic changes medially in the left base. 2. Otherwise, stable chest with no acute cardiopulmonary process. Jacky Guadarrama MD on March 25, 2017 at 10:32 Board Certified Radiologist. This report was verified electronically.
[2017-03-25 10:40] LABS: INTERNATIONAL NORMALIZED RATIO 1.1 RATIO; PROTHROMBIN TIME - PATIENT 12.3 SEC (9.8-11.6)
[2017-03-25 10:44] LABS: BLOOD GAS BASE EXCESS 0.1 mmol/L (-2-2); BLOOD GAS CARBOXYHEMOGLOBIN 1.9 % (0-4); BLOOD GAS HCO3 24 mmol/L (22-26); BLOOD GAS METHEMOGLOBIN 0.4 % (0-2); BLOOD GAS O2 HGB SATURATION 83 % (90-100); BLOOD GAS OXYGEN CONTENT 10.3 Vol % (12.0-20.0); BLOOD GAS PCO2 37 mmHg (38-42); BLOOD GAS PO2 50 mmHG (61-120); BLOOD GAS TOTAL HGB 8.8 G/DL (12.0-16.0); TEMP CORR TO 98.6
[2017-03-25 10:45] LABS: CRITICAL VALUE YES; DRAW SITE RT BRACHIAL; FIO2 21 %; NUMBER OF ARTERIAL PUNCTURES 1; STAT YES
[2017-03-25] MEDS ORDERED: SODIUM CHLOR 0.9% 250 ML INJ 250 ML IV ONE ×3 (10:45→12:45)
[2017-03-25 10:49] LABS: BICARBONATE 25.4 MEQ/L (21.0-32.0); POTASSIUM 4.7 MEQ/L (3.5-5.1)
[2017-03-25] MEDS ORDERED: VITA250T3 G-TUBE (10:56)
[2017-03-25] MEDS ORDERED: ACETAMINOPHEN 650 MG/20.3 ML UDC G-TUBE ONE (11:00)
[2017-03-25] MEDS ORDERED: HYDR-3366 G-TUBE (11:00)
[2017-03-25] MEDS ORDERED: PANT40TA3 PO (11:07)
[2017-03-25 11:54] LABS: BLOOD, URINE NEG (NEG); GLUCOSE,URINE NEG (NEG); HYALINE CAST, URINE 3 /lpf (RARE); KETONE, URINE NEG (NEG); NITRITE,URINE NEG (NEG); PH, URINE 5.5 (5.0-8.5); URINE COLOR YELLOW (YELLW/STRAW)
[2017-03-25 11:56] LABS: COMMENT (UR) CATH-CULTURE IND; CULTURE IF INDICATED CATH CULTURE IND
[2017-03-25] MEDS ORDERED: metroNIDAZOLE 500 MG INJ 100 ML IV ONE (12:00)
--- NOTE | 2017-03-25 12:07 | RADRPT ---
EXAM DATE/TIME: 03/25/2017 11:52 [facility] COMPARISON: CT BRAIN W/O CONTRAST, February 27, 2017, 13:47. INDICATIONS : Altered mental status. RADIATION DOSE: 41.12 CTDIvol (mGy) MEDICAL HISTORY : Myocardial infarction. Deep venous thrombosis. Polycystic kidney disease. Throat cancer. SURGICAL HISTORY : CABG Tracheostomy. ENCOUNTER: Initial ACUITY: 1 day PAIN SCALE: 0/10 LOCATION: cranial TECHNIQUE: Multiple contiguous axial images were obtained of the head. Using automated exposure control and adj ustment of the mA and/or kV according to patient size, radiation dose was kept as low as reasonably a chievable to obtain optimal diagnostic quality images. DICOM format image data is available electro nically for review and comparison. FINDINGS: CEREBRUM: Moderate cerebral atrophy is again noted. Old lacunar infarcts are noted within the bilateral basal g anglia.. No evidence of midline shift, mass lesion, hemorrhage or acute infarction. No extra-axial fluid collections are seen. POSTERIOR FOSSA: The cerebellum and brainstem are intact. The 4th ventricle is midline. The cerebellopontine angle i s unremarkable. EXTRACRANIAL: The visualized portion of the orbits is intact. SKULL: The calvaria is intact. No evidence of skull fracture. CONCLUSION: 1. Moderate cerebral atrophy. 2. Old lacunar infarcts within the bilateral basal ganglia. 3. No acute infarct, acute hemorrhage, mass effect or extra axial fluid collections. Bret Calderón MD on March 25, 2017 at 12:03 Board Certified Radiologist. This report was verified electronically.
--- NOTE | 2017-03-25 13:02 | PD ---
Physical Exam Date Seen by Provider: Mar 25, 2017 Narrative GENERAL: PATIENT FOLLOWS COMMANDS BUT IS SOMNOLENT, YET GUARDING AIRWAY (ONCE SECRETIONS SUCTIONED FROM COLLAR TRACH) SKIN: Warm and dry. HEAD: Atraumatic. Normocephalic. EYES: Pupils equal and round. No scleral icterus. No injection or drainage. ENT: No nasal bleeding or discharge. Mucous membranes pink and moist. NECK: Trachea midline. No JVD. CARDIOVASCULAR: Regular rate and rhythm. RESPIRATORY: No accessory muscle use. RONCHI AND CRACKLES LLL GASTROINTESTINAL: Abdomen soft, non-tender, nondistended. Hepatic and splenic margins not palpable. MUSCULOSKELETAL: Extremities without clubbing, cyanosis, or edema. No obvious deformities. NEUROLOGICAL: Awake and alert. No obvious cranial nerve deficits. Motor grossly within normal limits. Five out of 5 muscle strength in the arms and legs. Normal speech. PSYCHIATRIC: Appropriate mood and affect; insight and judgment normal. Data Data Last Documented VS Vital Signs Date Time Temp Pulse Resp B/P Pulse Ox O2 Delivery O2 Flow Rate FiO2 03/25/17 12:29 22 03/25/17 10:19 103.5 98 Non-Rebreather 10 03/25/17 10:11 100 03/25/17 09:58 135 122/58 Orders Electrocardiogram (03/25/17 09:43) Basic Metabolic Panel (Bmp) (03/25/17 09:43) Complete Blood Count With Diff (03/25/17 09:43) Creatine Kinase (Cpk) (03/25/17 09:43) Troponin I (03/25/17 09:43) Urinalysis - C+S If Indicated (03/25/17 09:43) Lactic Acid Sepsis Protocol (03/25/17 09:43) Blood Culture (03/25/17 09:43) Blood Glucose (03/25/17 09:43) Ecg Monitoring (03/25/17 09:43) Iv Access Insert/Monitor (03/25/17 09:43) Oximetry (03/25/17 09:43) Sodium Chloride 0.9% Flush (Ns Flush) (03/25/17 09:45) Chest, Single Ap (03/25/17 ) Prothrombin Time / Inr (Pt) (03/25/17 09:53) Sputum Culture And Gram Stain (03/25/17 10:02) Ct Brain W/O Iv Contrast(Rout) (03/25/17 ) Resp Pulse Oximetry (03/25/17 ) Resp Oxygen Govind C Titrat 1-4 L (03/25/17 ) Piperacil-Tazo 4.5 Gm Premix (Zosyn 4.5 (03/25/17 10:30) Vancomycin Inj (Vancomycin Inj) (03/25/17 10:30) Arterial Blood Gas (Abg) (03/25/17 ) Urinary Catheter Management MALKA.Q8H (03/25/17 10:30) Sodium Chlor 0.9% 250 Ml Inj (Ns 250 Ml (03/25/17 10:45) Metronidazole 500 Mg Inj (Flagyl 500 Mg (03/25/17 12:00) Acetaminophen 650 Mg/20 Ml Liq (Tylenol (03/25/17 11:00) Ventilation & Perfusion Scan (03/25/17 ) Urine Culture (03/25/17 11:10) Sodium Chlor 0.9% 250 Ml Inj (Ns 250 Ml (03/25/17 12:15) Sodium Chlor 0.9% 250 Ml Inj (Ns 250 Ml (03/25/17 12:45) Admit Order (Ed Use Only) (03/25/17 12:54) Labs Laboratory Tests Test 03/25/17 03/25/17 03/25/17 10:10 10:38 11:10 White Blood Count 14.2 TH/MM3 Red Blood Count 3.31 MIL/MM3 Hemoglobin 8.6 GM/DL Hematocrit 27.3 % Mean Corpuscular Volume 82.5 FL Mean Corpuscular Hemoglobin 26.1 PG Mean Corpuscular Hemoglobin 31.6 % Concent Red Cell Distribution Width 17.8 % Platelet Count 331 TH/MM3 Mean Platelet Volume 8.7 FL Neutrophils (%) (Auto) 85.7 % Lymphocytes (%) (Auto) 2.1 % Monocytes (%) (Auto) 11.5 % Eosinophils (%) (Auto) 0.1 % Basophils (%) (Auto) 0.6 % Neutrophils # (Auto) 12.2 TH/MM3 Lymphocytes # (Auto) 0.3 TH/MM3 Monocytes # (Auto) 1.6 TH/MM3 Eosinophils # (Auto) 0.0 TH/MM3 Basophils # (Auto) 0.1 TH/MM3 CBC Comment DIFF FINAL Differential Comment Prothrombin Time 12.3 SEC Prothromb Time International 1.1 RATIO Ratio Sodium Level 134 MEQ/L Potassium Level 4.7 MEQ/L Chloride Level 99 MEQ/L Carbon Dioxide Level 25.4 MEQ/L Anion Gap 10 MEQ/L Blood Urea Nitrogen 33 MG/DL Creatinine 2.21 MG/DL Estimat Glomerular Filtration 30 ML/MIN Rate Random Glucose 172 MG/DL Lactic Acid Level 1.7 mmol/L Calcium Level 8.6 MG/DL Total Creatine Kinase 36 U/L Troponin I 0.02 NG/ML Blood Gas Puncture Site RT BRACHIAL Blood Gas Patient Temperature 98.6 Blood Gas HCO3 24 mmol/L Blood Gas Base Excess 0.1 mmol/L Blood Gas Oxygen Saturation 83 % Arterial Blood pH 7.43 Arterial Blood Partial 37 mmHg Pressure CO2 Arterial Blood Partial 50 mmHG Pressure O2 Arterial Blood Oxygen Content 10.3 Vol % Arterial Blood 1.9 % Carboxyhemoglobin Arterial Blood Methemoglobin 0.4 % Blood Gas Hemoglobin 8.8 G/DL Blood Gas Inspired Oxygen 21 % Urine Color YELLOW Urine Turbidity CLEAR Urine pH 5.5 Urine Specific [place] 1.021 Urine Protein 30 mg/dL Urine Glucose (UA) NEG mg/dL Urine Ketones NEG mg/dL Urine Occult Blood NEG Urine Nitrite NEG Urine Bilirubin NEG Urine Urobilinogen LESS THAN 2.0 MG/DL Urine Leukocyte Esterase NEG Urine RBC 3 /hpf Urine WBC 1 /hpf Urine WBC Clumps RARE Urine Hyaline Casts 3 /lpf Microscopic Urinalysis Comment CATH-CULTURE IND MDM Medical Record Reviewed: Yes Supervised Visit with SANG: No Critical Care Narrative CRITICAL CARE NOTE: With evaluation of the patient, labs, EKG, receipt of radiologic studies, administration of medications, reevaluation the patient and discussion of the patient with the admitting physicians, the total critical care time was [60] minutes. Time to perform other separately billable procedures was not included in the critical care time. Diagnosis Primary Impression: Acute respiratory failure Qualified Code: J96.01 - Acute respiratory failure with hypoxia Additional Impressions: Delirium due to another medical condition Acute on chronic kidney failure Qualified Code: N17.9 - Acute renal failure superimposed on chronic kidney disease, unspecified CKD stage, unspecified acute renal failure type Admitting Information Admitting Physician Requests: Admit Tato Starkey MD Mar 25, 2017 13:02
[2017-03-25] MEDS ORDERED: SODIUM CHLORIDE 0.9% FLUSH 10 ML FLUSH IV FLUSH PRN (14:45)
[2017-03-25] MEDS ORDERED: CHLORHEXIDINE GLUCONATE 2 % 1 PACK (2 CLOTHS) TOP PRN (14:45)
[2017-03-25] MEDS ORDERED: LACTULOSE SYRUP 20 GM/30 ML CUP PO PRN (14:45)
[2017-03-25] MEDS ORDERED: BISACODYL 10 MG SUPP RECTAL PRN (14:45)
[2017-03-25] MEDS ORDERED: MAGNESIUM HYDROXIDE SUSP 30 ML CUP PO PRN (14:45)
[2017-03-25] MEDS ORDERED: MISCELLANEOUS NURSING INFORMATION XX SCH (14:45)
[2017-03-25] MEDS ORDERED: SENNOSIDES 8.6 MG TAB PO PRN (14:45)
[2017-03-25] MEDS ORDERED: GLUCAGON 1 MG/ML VIAL OTHER PRN (15:00)
[2017-03-25] MEDS ORDERED: DEXTROSE 50% IN WATER 50 ML VIAL(D50) IV PRN (15:00)
--- NOTE | 2017-03-25 15:11 | RADRPT ---
EXAM DATE/TIME: 03/25/2017 13:39 [facility] COMPARISON: CHEST SINGLE AP, March 25, 2017, 9:47. INDICATIONS : Respiratory distress. DOSE: 1.4 mCi Tc99m DTPA 8.8 mCi Tc99m MAA MEDICAL HISTORY : Carcinoma, esophageal. Renal insufficiency. Chronic obstructive pulmonary disease. CHF. SURGICAL HISTORY : CABG Peripheral vascular stent. Cholecystectomy. ENCOUNTER: Initial ACUITY: 1 day PAIN SCALE: 0/10 LOCATION: chest TECHNIQUE: Following five minutes of tidal breathing of DTPA aerosol, planar images of the lungs were performed in eight projections. The patient was then injected with MAA, and eight-view perfusion scan was perf ormed. FINDINGS: There is a homogeneous pattern of aerosol delivery to the periphery of both lungs. No focal ventilat ory defects are seen. The perfusion lung scan demonstrates a homogenous pattern of uptake in both lungs. No segmental or s ubsegmental defects are seen. CONCLUSION: No scintigraphic findings of pulmonary embolus. Jacky Guadarrama MD on March 25, 2017 at 14:52 Board Certified Radiologist. This report was verified electronically.
[2017-03-25] MEDS: RESP: ALBUTEROL 2.5 MG/IPRATROPIUM 0.5 MG NEB (SCH) INH ×2 (15:33→21:14)
--- NOTE | 2017-03-25 15:47 | HHI.HP ---
HPI Service Critical Care Medicine Primary Care Physician Juliane Briggs MD Admission Diagnosis SEPSIS SUSPECT PULMONARY SOURCE, HYPOXEMIA Diagnosis: Travel History International Travel<30 Days: No Contact w/Intl Traveler <30 Da: No Traveled to Known Affected Are: No Sepsis Criteria SIRS Criteria (2 or more): Temp > 100.9 or < 96.8, WBC > 98831, < 4000 or > 10 % bands Sepsis Criteria (SIRS+source): Infect source susp/known Severe Sepsis (+one): Organ Dysfunction Multiple Organ Dysfunction Syn: Evidence -2 organs failing Criteria Outcome: Meets sepsis criteria History of Present Illness This is a 66-year-old male, that presented to the ED emergently secondary to respiratory distress. Per report from his the patient was not feeling well last night complaint of difficulty breathing this a.m., EMS was called. Upon EMS arrival the pulse oximetry was noted to be in the 70s, the patient has a tracheostomy in situ which was suctioned O2 saturation increased to the 90s. Upon arrival to the ED the patient was noted to be tachycardic febrile and ABG on room air resulted in a PaO2 of 50. A VQ scan was ordered per Ed secondary to the patient has CKD stage IV, with a presenting creatinine of 2.2, to rule out pulmonary embolus. The patient was placed on 35% trach collar with O2 saturation 99%. The patient's temperature upon admission 103.5, and a noted leukocytosis with WBC count of 14.2. A presumptive diagnosis of sepsis, and workup/protocol was initiated. The patient received in the ED Flagyl, vancomycin and Zosyn. The patient has a significant past medical history of CAD , PAD and previously on Coumadin which was discontinued one week ago secondary to bleeding around the tracheostomy site. The patient has a history significant for laryngeal cancer diagnosed 09/2015 and has received XRT, and chemotherapy with resultant tracheostomy. Recurrence was noted 10/2016. The patient previously had advanced the diet to mechanical soft and liquids, but recently began having issues with nausea and vomiting and was placed on tube feeds only. The patient has a history of aspiration pneumonia previously hospitalized 09/2016. Critical care medicine was consulted for management. Review of Systems ROS Limitations: Clinical Condition Past Family Social History Allergies: Coded Allergies: HMG-CoA Reductase Inhibitors (Verified Allergy, Severe, 03/22/17) Niacin (Verified Allergy, Severe, 03/22/17) CAUSES HIM TO FEEL HOT Oily Fish (Verified Allergy, Intermediate, Diarrhea, 03/22/17) Past Medical History Laryngeal cancer, diabetes mellitus 2 chronic kidney disease stage IV, hyperlipidemia, history of OR 2012, history of PCI stent placement 2012, PAD, hypertension, GERD, aspiration pneumonia, laryngeal tumor recurrence Past Surgical History Status post tracheostomy, from oral bypass, PCI stent placement, G-tube placement, and surgery for laryngeal cancer Reported Medications see MAR Active Ordered Medications see MAR Family History The patient is , 4 stepchildren, denies alcohol or illicit drug use. Social History Denies alcohol or illicit drug use. 100 pack year smoking history quit in 1999 Physical Exam Vital Signs Vital Signs Date Time Temp Pulse Resp B/P Pulse Ox O2 Delivery O2 Flow Rate FiO2 03/25/17 13:09 96 T-piece 6.00 28 03/25/17 12:29 22 03/25/17 10:19 103.5 98 Non-Rebreather 10 03/25/17 10:11 97 Non-Rebreather 15.00 100 03/25/17 09:58 101.9 135 25 122/58 98 Non-Rebreather 15 03/25/17 09:58 97 Non-Rebreather 15 03/25/17 09:52 137 25 99 Non-Rebreather 15 03/25/17 09:41 101.9 137 25 122/58 99 Physical Exam GENERAL: Critically ill appearing gentleman older than stated age, in mild distress, with complaints of right-sided neck pain SKIN: Warm and dry. HEAD: Atraumatic. Normocephalic. EYES: Pupils equal and round. No scleral icterus. No injection or drainage. ENT: No nasal bleeding or discharge. Mucous membranes pink and moist. NECK: Trachea midline. No JVD. Tracheostomy in situ, no evidence of erythema or drainage around site CARDIOVASCULAR: Normal rate, regular rhythm. RESPIRATORY: No accessory muscle use. Clear to auscultation. Breath sounds equal bilaterally. GASTROINTESTINAL: Abdomen soft, non-tender, nondistended. No guarding. Gastric tube in situ MUSCULOSKELETAL: Extremities without clubbing, cyanosis, or edema. No obvious deformities. NEUROLOGICAL: Awake and alert. RASS 0. No gross focal/sensory deficits. Follows commands in all 4 extremities. Laboratory Laboratory Tests Test 03/25/17 03/25/17 03/25/17 10:10 10:38 11:10 White Blood Count 14.2 Red Blood Count 3.31 Hemoglobin 8.6 Hematocrit 27.3 Mean Corpuscular Volume 82.5 Mean Corpuscular Hemoglobin 26.1 Mean Corpuscular Hemoglobin 31.6 Concent Red Cell Distribution Width 17.8 Platelet Count 331 Mean Platelet Volume 8.7 Neutrophils (%) (Auto) 85.7 Lymphocytes (%) (Auto) 2.1 Monocytes (%) (Auto) 11.5 Eosinophils (%) (Auto) 0.1 Basophils (%) (Auto) 0.6 Neutrophils # (Auto) 12.2 Lymphocytes # (Auto) 0.3 Monocytes # (Auto) 1.6 Eosinophils # (Auto) 0.0 Basophils # (Auto) 0.1 CBC Comment DIFF FINAL Differential Comment Prothrombin Time 12.3 Prothromb Time International 1.1 Ratio Sodium Level 134 Potassium Level 4.7 Chloride Level 99 Carbon Dioxide Level 25.4 Anion Gap 10 Blood Urea Nitrogen 33 Creatinine 2.21 Estimat Glomerular Filtration 30 Rate Random Glucose 172 Lactic Acid Level 1.7 Calcium Level 8.6 Total Creatine Kinase 36 Troponin I 0.02 Blood Gas Puncture Site RT BRACHIAL Blood Gas Patient Temperature 98.6 Blood Gas HCO3 24 Blood Gas Base Excess 0.1 Blood Gas Oxygen Saturation 83 Arterial Blood pH 7.43 Arterial Blood Partial 37 Pressure CO2 Arterial Blood Partial 50 Pressure O2 Arterial Blood Oxygen Content 10.3 Arterial Blood 1.9 Carboxyhemoglobin Arterial Blood Methemoglobin 0.4 Blood Gas Hemoglobin 8.8 Blood Gas Inspired Oxygen 21 Urine Color YELLOW Urine Turbidity CLEAR Urine pH 5.5 Urine Specific [place] 1.021 Urine Protein 30 Urine Glucose (UA) NEG Urine Ketones NEG Urine Occult Blood NEG Urine Nitrite NEG Urine Bilirubin NEG Urine Urobilinogen LESS THAN 2.0 Urine Leukocyte Esterase NEG Urine RBC 3 Urine WBC 1 Urine WBC Clumps RARE Urine Hyaline Casts 3 Microscopic Urinalysis Comment CATH-CULTURE IND Date/Time Procedure Status Source Growth 03/25/17 11:10 Urine Culture Received Urine Catheterized Urine Pending 03/25/17 10:30 Gram Stain Received Sputum Endotracheal Pending 03/25/17 10:30 Sputum Culture Received Sputum Endotracheal Pending 03/25/17 10:10 Aerobic Blood Culture Received Blood Peripheral Pending 03/25/17 10:10 Anaerobic Blood Culture Received Blood Peripheral Pending Result Diagram: 03/25/17 1010 03/25/17 1010 Imaging Last Impressions Head CT 03/25/17 0000 Signed Impressions: Service Date/Time: Saturday, March 25, 2017 11:52 - CONCLUSION: 1. Moderate cerebral atrophy. 2. Old lacunar infarcts within the bilateral basal ganglia. 3. No acute infarct, acute hemorrhage, mass effect or extra axial fluid collections. Bret Calderón MD Chest X-Ray 03/25/17 0000 Signed Impressions: Service Date/Time: Saturday, March 25, 2017 09:47 - CONCLUSION: 1. Minimal atelectatic changes medially in the left base. 2. Otherwise, stable chest with no acute cardiopulmonary process. Jacky Guadarrama MD Septic Shock Reassessment Heart: Regular rate and rhythm Lungs: Clear, Course Peripheral Pulses: Bounding Right Radial Bounding Left Radial Bounding Right Dorsalis Pedis Bounding Left Dorsalis Pedis Capillary Refill: Brisk Assessment and Plan Assessment and Plan Assessment Severe Sepsis Possible aspiration [id number] Polycystic kidneys Acute on chronic kidney disease Chronic kidney disease stage IV History of renal stents Coronary artery disease status post PCI History of CABG 11/2012 Hypertension Hyperlipidemia PAD History of bilateral femoral stent placement Peripheral neuropathy GERD Plan by systems: Neurologic: --Avoid sedative type medications --Neuro checks per ICU protocol --Hold gabapentin for now --Tylenol 650 mg every 6 hours for pain, consider Ofirmev IV 24 hours Respiratory: --Apply trach collar 35%, humidified oxygen --Bronchodilators every 4 hours schedule every 2 hours when necessary --Maintain O2 sat greater than 92% --Ventilator bundle --03/25 chest x-rayminimal atelectatic process ,stable chest x-ray no acute, cardiopulmonary process --Follow-up VQ scan --Repeat ABG and chest x-ray in a.m. Cardiovascular: --03/25-EKG sinus tachycardia with noted ST changes, reviewed similar to previous admission --Dr. Narayanan adjunct communications faculty member follows patient on outpatient basis --05/16 ECHO-showed EF 4550 percent tricuspid valve mild regurgitation, mild diffuse hypokinesis --09/17 stress test- fixed diffusion defect anterior wall EF 45% --Obtain stat echo-rule out RV dysfunction, and assess current functional status --Continue plavix, patient was previously on Coumadin it was stopped approximately 1 week ago secondary to bleeding around tracheostomy site --Obtain BNP --Follow-up troponin level Renal: --Creatinine 2.2, continue to monitor --Insert Arroyo -- Strict I/Os FEN/GI: --Patient received 750cc bolus over 3 hour in ED --Begin gentle hydration normal saline at 42 cc/hour --Nothing by mouth for now, patient had a history of aspiration pneumonia . The patient previously was on a mechanical soft diet with thickened liquids consistency recently unable to tolerate recently was transitioned to Suplena 6 cans per dayper Gtube with recent complaints of bloating fullness and discomfort --Continue Protonix Heme/ID: --Follow-up blood urine cultures --Obtain sputum culture --Patient received Flagyl, vancomycin, and Zosyn 1 dose --Empiric antibiotics initiated Zosyn and azithromycin Endocrine: --Glucose monitoring per ICU protocol low dose regimen sliding scale -- SSI Prophylaxis: GI Prophylaxis Protonix DVT Prophylaxis -- SCDs Heparin SQ BID Lines: Peripheral IVs 2. Central line if indicated Dispo: This patient remains critically ill with one or more organ systems which are or may become a threat to life. I have spent in excess of 35 minutes discontinuously in the care and management of this patient. This time is exclusive of procedures, and includes, but is not limited to, evaluation of the patient, review of the medical record, discussions with family, consultants, nursing staff, or respiratory therapy, and documentation in the medical record. Code Status Full Discussed Condition With , daughter patient and ED RN at bedside. Rosemarie Matta MD Mar 25, 2017 15:47
[2017-03-25] MEDS: HEPARIN SODIUM - SQ 10,000 UNITS/ML VIAL SQ SCH (16:00)
--- NOTE | 2017-03-25 16:06 | ECHRPT ---
Indication: SOB CONCLUSIONS Mildly dilated left ventricle. Wall thickness is normal. The left ventricular systolic function is low normal with an estimated ejection fraction of approxim ately 50% The left atrial size is mildly dilated. Mitral annular calcification is present. Mild mitral valve regurgitation. Mild thickening of the aortic valve leaflets. Cannot rule out a bicuspid aortic valve or trileaflet valve with partially fused commissure. Aortic valve sclerosis is present. Trace aortic valve regurgitation. There is trace tricuspid valve regurgitation. The estimated pulmonary arterial pressure is 27 mmHg. BP: / HR: Rhythm: MEASUREMENTS (Male / Female) Normal Values Technical Quality:Good 2D ECHO LV Diastolic Diameter PLAX 5.2 cm 4.2 - 5.9 / 3.9 - 5.3 cm LV Systolic Diameter PLAX 4.4 cm IVS Diastolic Thickness 0.9 cm 0.6 - 1.0 / 0.6 - 0.9 cm LVPW Diastolic Thickness 0.9 cm 0.6 - 1.0 / 0.6 - 0.9 cm LV Relative Wall Thickness 0.3 RV Internal Dim ED PLAX 1.9 cm LA Systolic Diameter LX 3.5 cm 3.0 - 4.0 / 2.7 - 3.8 cm M-MODE Aortic Root Diameter MM 3.5 cm AV Cusp Separation MM 2.2 cm DOPPLER Mitral E Point Velocity 35.5 cm/s Mitral A Point Velocity 80.5 cm/s Mitral E to A Ratio 0.4 TR Peak Velocity 235.0 cm/s TR Peak Gradient 22.1 mmHg FINDINGS LEFT VENTRICLE Mildly dilated left ventricle. Wall thickness is normal. The left ventricular systolic function is low normal with an estimated ejection fraction in the rang e of 50- 55%. RIGHT VENTRICLE Normal right ventricular size and systolic function. LEFT ATRIUM The left atrial size is mildly dilated. RIGHT ATRIUM The right atrial size is normal. ATRIAL SEPTUM Atrial septal aneurysm is present (benign finding). AORTA The aortic root and proximal ascending aorta are normal in size on limited imaging. MITRAL VALVE Mitral annular calcification is present. Mild mitral valve regurgitation. AORTIC VALVE Mild thickening of the aortic valve leaflets. Cannot rule out a bicuspid aortic valve or trileaflet valve with partially fused commissure. Aortic valve sclerosis is present. Trace aortic valve regurgitation. TRICUSPID VALVE There is trace tricuspid valve regurgitation. The estimated pulmonary arterial pressure is 27 mmHg. PULMONARY VALVE The pulmonary valve is not well visualized. VESSELS The inferior vena cava is normal in size. PERICARDIUM No pericardial effusion. Tito Minor MD, FACC (Electronically Signed) Final Date:25 March 2017 16:05
[2017-03-25] MEDS: AZITHROMYCIN INJ 500 MG in SODIUM CHLOR 0.9% 250 ML INJ 250 ML IV SCH ×2 (16:10→18:32)
[2017-03-25] MEDS: PIPERACIL-TAZO 3.375 GM PREMIX 50 ML IV SCH ×2 (17:00→23:44)
[2017-03-25] MEDS ORDERED: ACETAMINOPHEN 1000 MG/100 ML VIAL IV ONE (17:15)
--- NOTE | 2017-03-25 18:02 | RADRPT ---
EXAM DATE/TIME: 03/25/2017 16:03 [facility] COMPARISON: US LEG BILATERAL VENOUS DOPPLER, March 10, 2017, 14:06. INDICATIONS : Shortness of breath; thrombosis. MEDICAL HISTORY : Myocardial infarction. Hypercholesterolemia. Chronic obstructive pulmonarydi sease. CVA. Peripheral neuropathy. CHF. CAD. Peripheral vascular disease. Anticoagulant therapy.Hyper tension. GERD. Polycystic kidney disease. Renal failure. Fibromyalgia. Restless legs syndrome. Arthr itis. Gout. Depression. Diabetes. SURGICAL HISTORY : Tonsillectomy. Cholecystectomy. Oral surgery. CABG. Cardiac catheterization. Coronary stent. CABG. Left shoulder surgery. ENCOUNTER: Sequela ACUITY: 1 day PAIN SCORE: Non-responsive LOCATION: Bilateral leg. TECHNIQUE: Venous ultrasound of the left and right leg was performed from the inguinal ligament t o the proximal calf. Real-time, color Doppler and spectral tracing, compression and augmentation gypsy hniques were used. FINDINGS: RIGHT LEG: There is normal compressibility of the deep venous system from the inguinal region to the proximal calf. No echogenic clot is seen in the lumen of the common femoral, femoral, popliteal, and peroneal veins. The right posterior tibial veins were noncompressible and likely contain thromb us. There is a normal response of the venous system to proximal and distal augmentation and respirati on. LEFT LEG: There is normal compressibility of the deep venous system from the inguinal region to t he proximal calf. No echogenic clot is seen in the lumen of the common femoral, femoral, popliteal, and peroneal veins. The left posterior tibial veins could not be assessed due to the patient's inabi lity to cooperate during the examination. There is a normal response of the venous system to proximal and distal augmentation and respiration. CONCLUSION: Probable deep venous thrombosis within the right posterior tibial veins. Bret Calderón MD on March 25, 2017 at 17:58 Board Certified Radiologist. This report was verified electronically.
--- NOTE | 2017-03-25 18:04 | RADRPT ---
EXAM DATE/TIME: 03/25/2017 16:31 [facility] COMPARISON: No previous studies available for comparison. INDICATIONS : Shortness of breath. MEDICAL HISTORY : Myocardial infarction. Hypercholesterolemia. Chronic obstructive pulmonarydisease. CVA. Peripheral ne uropathy. CHF. CAD. Peripheral vascular disease. Anticoagulant therapy.Hypertension. GERD. Polycystic kidney disease. Renal failure. Fibromyalgia. Restless legs syndrome. Arthritis. Gout. Depression. Diabetes. SURGICAL HISTORY : Tonsillectomy. Cholecystectomy. Oral surgery. CABG. Cardiac catheterization. Coronary stent. CABG. Le ft shoulder surgery. ENCOUNTER: Initial ACUITY: 1 day PAIN SCORE: 4/10 LOCATION: Bilateral arm. FINDINGS: RIGHT UPPER EXTREMITY: There is occlusive thrombus in the right cephalic vein. No thrombus in the jugular, subclavian or bra chial vein. Radial and ulnar veins are not well seen, LEFT UPPER EXTREMITY: There is spontaneous flow documented in the brachial, basilic, cephalic, axillary, and subclavian vei ns. Radial and ulnar veins are not well seen. The vessels are compressible and augmentation response is documented. No filling defects are seen. The flow is phasic with respiration. Direction of lenoora w in the jugular vein is caudal. CONCLUSION: 1. Occlusive thrombus in the right cephalic vein. 2. No deep venous thrombosis left arm. Dakota Suarez MD on March 25, 2017 at 18:01 Board Certified Radiologist. This report was verified electronically.
[2017-03-25] MEDS: INSULIN ASPART SUPPLEMENTAL SCALE SQ SCH ×2 (18:20→20:46)
[2017-03-25] MEDS: DOCUSATE SODIUM 50 MG/SENNA 8.6 MG TAB PO SCH (20:42)
[2017-03-25] MEDS: SODIUM CHLORIDE 0.9% FLUSH 10 ML FLUSH IV FLUSH SCH (20:42)
[2017-03-25] MEDS: CHLORHEXIDINE 0.12% (ORAL KIT) 15 ML CUP MT SCH (20:42)
[2017-03-25] MEDS: SODIUM CHLOR 0.9% 1000 ML INJ 1,000 ML IV SCH (20:42)
[2017-03-26] VITALS (21 sets, daily range): BP systolic 74–130; BP diastolic 42–85; PULSE 83–127; RESP 15–35; TEMP 97.6–100.5; O2SAT 82–100
[2017-03-26] MEDS: RESP: ALBUTEROL 2.5 MG/IPRATROPIUM 0.5 MG NEB (SCH) INH ×4 (03:47→21:42)
[2017-03-26] MEDS: CHLORHEXIDINE GLUCONATE 2 % 1 PACK (2 CLOTHS) TOP SCH (04:00)
[2017-03-26] MEDS: PIPERACIL-TAZO 3.375 GM PREMIX 50 ML IV SCH ×4 (04:36→23:41)
[2017-03-26] MEDS: HEPARIN SODIUM - SQ 10,000 UNITS/ML VIAL SQ SCH ×2 (04:36→15:13)
--- NOTE | 2017-03-26 04:46 | RADRPT ---
EXAM DATE/TIME: 03/26/2017 03:15 [facility] COMPARISON: CHEST SINGLE AP, March 25, 2017, 9:47. INDICATIONS : Short of breath. MEDICAL HISTORY : Chronic obstructive pulmonary disease. Congestive heart failure. end stage SURGICAL HISTORY : CABG. Coronary artery stent. tracheostomy, peg tube ENCOUNTER: Subsequent ACUITY: 1 week PAIN SCORE: 0/10 LOCATION: Bilateral chest FINDINGS: Portable AP view of the chest demonstrates a normal-sized cardiac silhouette in this patient post med hollis sternotomy. Tracheostomy is present. Lungs are underinflated. There is mild atelectasis at the ri ght lung base and there is stable airspace opacity at the left lung base. No pneumothorax or pleural effusion is visualized. CONCLUSION: Stable chest x-ray with left basilar opacity representing atelectasis or airspace consolidation. Tomi Denise MD on March 26, 2017 at 4:44 Board Certified Radiologist. This report was verified electronically.
[2017-03-26 05:31] LABS: AUTOMATED NEUTROPHIL # 8.7 TH/MM3 (1.8-7.7); BASOPHIL # 0.1 TH/MM3 (0-0.2); BASOPHIL % 0.5 % (0.0-2.0); EOSINOPHIL % 0.3 % (0.0-4.0); HEMATOCRIT 23.6 % (39.0-51.0); HEMO FLAGS DIFF FINAL; LYMPH % 7.2 % (9.0-44.0); LYMPHOCYTE # 0.8 TH/MM3 (1.0-4.8); MEAN CELL VOLUME 82.1 FL (80.0-100.0); MEAN CORPUSCULAR HGB CONC 31.7 % (32.0-36.0); MONO % 11.8 % (0.0-8.0); NEUT % 80.2 % (16.0-70.0); PLATELET COUNT 273 TH/MM3 (150-450); RED BLOOD COUNT 2.88 MIL/MM3 (4.50-5.90); RED CELL DISTRIBUTION WIDTH 18.3 % (11.6-17.2); WHITE BLOOD COUNT 10.8 TH/MM3 (4.0-11.0)
[2017-03-26 05:39] LABS: ANION GAP 11 MEQ/L (5-15); AST (GOT) 12 U/L (15-37); BICARBONATE 22.4 MEQ/L (21.0-32.0); BLOOD UREA NITROGEN 38 MG/DL (7-18); CHLORIDE 104 MEQ/L (98-107); GLOMERULAR FILTRATION RATE 31 ML/MIN (>89); MAGNESIUM 2.1 MG/DL (1.5-2.5); POTASSIUM 4.4 MEQ/L (3.5-5.1); SODIUM (NA) 137 MEQ/L (136-145)
[2017-03-26 05:40] LABS: ALT (GPT) 11 U/L (12-78)
[2017-03-26 05:42] LABS: ALKALINE PHOSPHATASE 130 U/L (45-117); TOTAL BILIRUBIN ADULT 0.7 MG/DL (0.2-1.0)
[2017-03-26] MEDS: INSULIN ASPART SUPPLEMENTAL SCALE SQ SCH ×4 (07:00→20:48)
--- NOTE | 2017-03-26 07:27 | HHI.CCPN ---
Subjective Remarks/Hospital Course This is a 66-year-old male, that presented to the ED emergently secondary to respiratory distress. Per report from his the patient was not feeling well last night complaint of difficulty breathing this a.m., EMS was called. Upon EMS arrival the pulse oximetry was noted to be in the 70s, the patient has a tracheostomy in situ which was suctioned O2 saturation increased to the 90s. Upon arrival to the ED the patient was noted to be tachycardic febrile and ABG on room air resulted in a PaO2 of 50. A VQ scan was ordered per Ed secondary to the patient has CKD stage IV, with a presenting creatinine of 2.2, to rule out pulmonary embolus. The patient was placed on 35% trach collar with O2 saturation 99%. The patient's temperature upon admission 103.5, and a noted leukocytosis with WBC count of 14.2. A presumptive diagnosis of sepsis, and workup/protocol was initiated. The patient received in the ED Flagyl, vancomycin and Zosyn. The patient has a significant past medical history of CAD , PAD and previously on Coumadin which was discontinued one week ago secondary to bleeding around the tracheostomy site. The patient has a history significant for laryngeal cancer diagnosed 09/2015 and has received XRT, and chemotherapy with resultant tracheostomy. Recurrence was noted 10/2016. The patient previously had advanced the diet to mechanical soft and liquids, but recently began having issues with nausea and vomiting and was placed on tube feeds only. The patient has a history of aspiration pneumonia previously hospitalized 09/2016. Critical care medicine was consulted for management. Subjective: 03/26: Tmax 98.8. Her respiratory status improved overnight. Patient's maintain O2 saturation 98% currently on room air. Leukocytosis resolving. Patient noted to have gram-positive cocci in sputum culture speciation pending. Urine culture also still pending. Empiric antibiotics continue Zosyn and azithromycin. Pulmonary embolus workup noted to be negative, VQ scan negative. Echo obtained yesterday revealed ejection fraction of 50%. Concern for occlusive disease with a history of PAD, PVD ultrasound was noted to have DVT right posterior tibial veins. The patient previously was on Coumadin approximately 2 weeks ago but secondary to bleeding around trach site was discontinued, Dr.Awais Melchor- hematology oncology patient's personal physician has been consulted appreciate recommendations. Patient complained of pain during the night, primarily in the neck and occipital region on the right. [place] 10/325 resumed, PRN. Objective Vital Signs Date Time Temp Pulse Resp B/P Pulse Ox O2 Delivery O2 Flow Rate FiO2 03/26/17 06:00 122 03/26/17 06:00 26 123/67 99 03/26/17 04:00 98.2 03/25/17 21:15 T-piece 28 03/25/17 16:00 5 Intake and Output 03/25/17 03/25/17 03/26/17 08:00 16:00 00:00 Intake Total 48 ml Output Total 550 ml Balance -502 ml Result Diagram: 03/26/17 0440 03/26/17 0440 Other Results Laboratory Tests Test 03/25/17 10:38 Blood Gas Puncture Site RT BRACHIAL Blood Gas Patient Temperature 98.6 Blood Gas HCO3 24 mmol/L (22-26) Blood Gas Base Excess 0.1 mmol/L (-2-2) Blood Gas Oxygen Saturation 83 % (90-100) Arterial Blood pH 7.43 (7.380-7.420) Arterial Blood Partial 37 mmHg (38-42) Pressure CO2 Arterial Blood Partial 50 mmHG Pressure O2 (61-120) Arterial Blood Oxygen Content 10.3 Vol % (12.0-20.0) Arterial Blood 1.9 % (0-4) Carboxyhemoglobin Arterial Blood Methemoglobin 0.4 % (0-2) Blood Gas Hemoglobin 8.8 G/DL (12.0-16.0) Blood Gas Inspired Oxygen 21 % Imaging Last Impressions Head CT 03/25/17 0000 Signed Impressions: Service Date/Time: Saturday, March 25, 2017 11:52 - CONCLUSION: 1. Moderate cerebral atrophy. 2. Old lacunar infarcts within the bilateral basal ganglia. 3. No acute infarct, acute hemorrhage, mass effect or extra axial fluid collections. Bret Calderón MD Chest X-Ray 03/25/17 0000 Signed Impressions: Service Date/Time: Saturday, March 25, 2017 09:47 - CONCLUSION: 1. Minimal atelectatic changes medially in the left base. 2. Otherwise, stable chest with no acute cardiopulmonary process. Jacky Guadarrama MD Objective Remarks BP 119/65 pulse 109 O2 saturation 9597 percent on room air GENERAL: Chronically ill appearing gentleman older than stated age, alert and oriented, communication by mouthing words SKIN: Warm and dry. HEAD: Atraumatic. Normocephalic. EYES: Pupils equal and round. No scleral icterus. No injection or drainage. ENT: No nasal bleeding or discharge. Mucous membranes pink and moist. NECK: Trachea midline. No JVD. Tracheostomy in situ, no evidence of erythema or drainage around site. Thickened cream-colored sputum expectorated CARDIOVASCULAR: Normal rate, regular rhythm. RESPIRATORY: No accessory muscle use. Clear to auscultation. Breath sounds equal bilaterally. GASTROINTESTINAL: Abdomen soft, non-tender, nondistended. No guarding. Gastric tube in situ. Normoactive bowel sounds MUSCULOSKELETAL: Extremities without clubbing, cyanosis, or edema. No obvious deformities. NEUROLOGICAL: Awake and alert. RASS 0. No gross focal/sensory deficits. Follows commands in all 4 extremities. Urinary Catheter: Yes Date of Insertion: Mar 25, 2017 Vascular Central Line Catheter: No A/P Assessment and Plan Assessment Severe Sepsis Probable aspiration [id number]-[id number] Polycystic kidneys Acute on chronic kidney disease Chronic kidney disease stage IV History of renal stents Coronary artery disease status post PCI History of CABG 11/2012 Hypertension Hyperlipidemia PAD Congestive heart failure History of bilateral femoral stent placement Peripheral neuropathy GERD Plan by systems: Neurologic: --Avoid sedative type medications --Neuro checks per ICU protocol --Hold gabapentin for now --[place] 10/325 mg every 6 hours when necessary pain Respiratory: --Apply trach collar 35%, humidified oxygen --Bronchodilators every 4 hours schedule every 2 hours when necessary --Maintain O2 sat greater than 92% --Ventilator bundle --03/25 chest x-rayminimal atelectatic process ,stable chest x-ray no acute, cardiopulmonary process --03/25 VQ scan-negative for DVT --03/26 Repeat chest x-ray -left lower lobe basilar opacity Cardiovascular: --03/25-EKG sinus tachycardia with noted ST changes, reviewed similar to previous admission --Dr. Narayanan cheese pancake roller follows patient on outpatient basis --05/16 ECHO-showed EF 4550 percent tricuspid valve mild regurgitation, mild diffuse hypokinesis --09/17 stress test- fixed diffusion defect anterior wall EF 45% --03/25-echo-EF 50%, LAE, mild mitral valve regurgitation, trace TR. Pulmonary pressures within normal limits --Continue Plavix 75 mg/day, and Cilostazol 50 mg BID -patient was previously on Coumadin it was stopped approximately 1 week ago secondary to bleeding around tracheostomy site --03/25 BNP-1077 --Resume metoprolol 50 mg twice a day Renal: --Creatinine 2.2-> 2.1 today --UOP 1075cc/since admission -- Strict I/Os FEN/GI: --Nutrition consult-2 begin tube feeds --Begin gentle hydration normal saline at 42 cc/hour --Nothing by mouth for now, patient had a history of aspiration pneumonia . The patient previously was on a mechanical soft diet with thickened liquids consistency recently unable to tolerate recently was transitioned to [place] 6 cans per dayper Gtube with recent complaints of bloating fullness and discomfort --Continue Protonix --Zofran for nausea Heme/ID: --03/25 blood urine cultures NGTD --03/25 sputum [id number] cocci in pairs and chains --Patient received in ED 03/25 Flagyl, vancomycin, and Zosyn 1 dose --Empiric antibiotics initiated Zosyn and azithromycin (day 2) --Monitor CBC, leukocytosis resolved Endocrine: --Glucose monitoring per ICU protocol low dose regimen sliding scale -- SSI Prophylaxis: GI Prophylaxis Protonix DVT Prophylaxis-ultrasound bilateral upper extremities negative for DVT. Bilateral lower extremities, DVT right posterior tibial vein, -- SCDs left leg Heparin SQ BID Lines: Peripheral IVs 2. Central line if indicated Dispo: Level 3 Physician Rosemarie Mcgrath MD Mar 26, 2017 07:27
--- NOTE | 2017-03-26 07:45 | HHI.PR ---
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 His right facial and ear pain seem to be referred from his laryngeal tumor. I spoke with Dr. Melchor yesterday prior to his admission and he noted that he would do radiation therapy palliative to help with his pain and hopefully bleeding. I see that he now has 2 DVTs and will need coumadin therapy. My suggestion would be to stop the cilostasol and plavix and just leave him on the coumadin. plavix and cilostasol was used for his PVD and claudication, however his mobility is decreased to the point that it may not be clinically necessary at this time. Pts daughter's are on line with hospice therapy, however patient and his absolutely want to continue with therapy and resist hospice because in their opinion "hospice kills people" despite multiple discussions that people who go on hospice have terminal disease processes. I had last discussed that with him on Friday03/24/17. Juliane Ruvalcaba MD Mar 26, 2017 07:45
[2017-03-26] MEDS: CHLORHEXIDINE 0.12% (ORAL KIT) 15 ML CUP MT SCH ×2 (07:50→20:48)
[2017-03-26] MEDS: PANTOPRAZOLE SODIUM 40 MG VIAL IV SCH (09:18)
[2017-03-26] MEDS: HYOSCYAMINE 0.125 MG TAB G-TUBE SCH ×2 (09:18→20:48)
[2017-03-26] MEDS: CLOPIDOGREL 75 MG TAB G-TUBE SCH (09:18)
[2017-03-26] MEDS: METOPROLOL TARTRATE 50 MG TAB G-TUBE SCH ×2 (09:18→20:48)
[2017-03-26] MEDS: ACETAMINOPHEN/HYDROcodone 325 MG/10 MG TAB PO PRN ×3 (09:18→20:55)
[2017-03-26] MEDS: DOCUSATE SODIUM 50 MG/SENNA 8.6 MG TAB PO SCH ×2 (09:18→20:48)
[2017-03-26] MEDS: SODIUM CHLORIDE 0.9% FLUSH 10 ML FLUSH IV FLUSH SCH ×2 (09:19→20:50)
[2017-03-26] MEDS: CILOSTAZOL 50 MG TAB G-TUBE SCH ×2 (09:20→20:48)
--- NOTE | 2017-03-26 09:59 | EKG ---
Date Performed: 03/25/2017 Time Performed: 09:53:17 PTAGE: 66 years EKG: MARKED SINUS TACHYCARDIA DIFFUSE NONSPECIFIC ST T WAVE CHANGES, CANNOT EXCLUDE ISCHEMIA THO UGH THE NONSPECIFIC ST T WAVE CHANGES WERE SEEN ON THE PRIOR TRACING ABNORMAL ECG PREVIOUS TRACING : 03/02/17 DOCTOR: Clive Sanchez Interpretating Date/Time 03/26/2017 09:58:14
[2017-03-26] MEDS: SODIUM CHLOR 0.9% 1000 ML INJ 1,000 ML IV SCH (14:20)
[2017-03-26] MEDS ORDERED: MIDAZOLAM HCL 2 MG/2 ML VIAL IV PUSH ONE (17:00)
[2017-03-26] MEDS: ALPRAZolam 0.25 MG TAB PO PRN (20:55)
[2017-03-27] VITALS (14 sets, daily range): BP systolic 89–135; BP diastolic 51–72; PULSE 66–111; RESP 13–48; TEMP 95.5–98.2; O2SAT 96–100
[2017-03-27] MEDS ORDERED: DEXMEDETOMIDINE 200 MCG/50 ML NS Premix IV SCH (01:00)
[2017-03-27] MEDS: DEXMEDETOMIDINE 200 MCG in NS 50 ML IV SCH ×4 (01:11→07:54)
[2017-03-27] MEDS: ACETAMINOPHEN/HYDROcodone 325 MG/10 MG TAB PO PRN ×3 (02:12→21:23)
[2017-03-27] MEDS: CHLORHEXIDINE GLUCONATE 2 % 1 PACK (2 CLOTHS) TOP SCH (02:59)
[2017-03-27] MEDS: HEPARIN SODIUM - SQ 10,000 UNITS/ML VIAL SQ SCH ×2 (02:59→15:07)
[2017-03-27] MEDS: RESP: ALBUTEROL 2.5 MG/IPRATROPIUM 0.5 MG NEB (SCH) INH ×3 (03:52→21:18)
[2017-03-27] MEDS: PIPERACIL-TAZO 3.375 GM PREMIX 50 ML IV SCH ×3 (04:54→19:15)
[2017-03-27 05:18] LABS: HEMATOCRIT 21.2 % (39.0-51.0); MEAN CELL VOLUME 82.1 FL (80.0-100.0); MEAN CORPUSCULAR HEMOGLOBIN 26.3 PG (27.0-34.0); PLATELET COUNT 257 TH/MM3 (150-450); RED BLOOD COUNT 2.58 MIL/MM3 (4.50-5.90); RED CELL DISTRIBUTION WIDTH 18.1 % (11.6-17.2); WHITE BLOOD COUNT 8.7 TH/MM3 (4.0-11.0)
[2017-03-27 05:46] LABS: BICARBONATE 22.7 MEQ/L (21.0-32.0); MAGNESIUM 2.3 MG/DL (1.5-2.5); POTASSIUM 4.4 MEQ/L (3.5-5.1); REVIEW FLAG FINAL
[2017-03-27] MEDS: INSULIN ASPART SUPPLEMENTAL SCALE SQ SCH ×4 (07:00→21:00)
[2017-03-27] MEDS: HYOSCYAMINE 0.125 MG TAB G-TUBE SCH ×2 (09:00→21:22)
[2017-03-27] MEDS: SODIUM CHLORIDE 0.9% FLUSH 10 ML FLUSH IV FLUSH SCH ×2 (09:37→21:00)
[2017-03-27] MEDS: METOPROLOL TARTRATE 50 MG TAB G-TUBE SCH ×2 (09:37→21:23)
[2017-03-27] MEDS: DOCUSATE SODIUM 50 MG/SENNA 8.6 MG TAB PO SCH ×2 (09:37→21:00)
[2017-03-27] MEDS: PANTOPRAZOLE SODIUM 40 MG VIAL IV SCH (09:37)
[2017-03-27] MEDS: CLOPIDOGREL 75 MG TAB G-TUBE SCH (09:38)
[2017-03-27] MEDS: CHLORHEXIDINE 0.12% (ORAL KIT) 15 ML CUP MT SCH ×2 (09:38→20:00)
[2017-03-27] MEDS: CILOSTAZOL 50 MG TAB G-TUBE SCH ×2 (09:38→22:30)
[2017-03-27] MEDS: SODIUM CHLOR 0.9% 1000 ML INJ 1,000 ML IV SCH (14:09)
[2017-03-27] MEDS: ALPRAZolam 0.25 MG TAB PO PRN ×2 (15:06→22:30)
[2017-03-27] MEDS: AZITHROMYCIN INJ 500 MG in SODIUM CHLOR 0.9% 250 ML INJ 250 ML IV SCH (17:44)
--- NOTE | 2017-03-27 20:01 | HHI.PR ---
Subjective Remarks at bedside as per RN patient agitated earlier today on restraints hemoglobin low noted dark stool/diarrhea today Objective Vitals Vital Signs Date Time Temp Pulse Resp B/P Pulse Ox O2 Delivery O2 Flow Rate FiO2 03/27/17 18:04 95.5 99 22 135/53 98 03/27/17 16:00 80 03/27/17 16:00 98.0 86 18 118/61 96 03/27/17 13:00 77 15 106/59 100 03/27/17 12:00 80 03/27/17 12:00 98.2 77 13 110/56 100 03/27/17 11:00 80 13 111/55 100 03/27/17 10:22 97 Trach Collar 28 03/27/17 10:00 66 13 109/58 100 03/27/17 09:00 71 13 112/58 100 03/27/17 08:00 90 27 95/58 99 03/27/17 08:00 77 03/27/17 07:00 98.0 82 31 99 03/27/17 04:00 72 03/27/17 04:00 98.0 73 16 89/51 98 03/27/17 00:00 98.2 104 48 111/55 99 03/27/17 00:00 111 03/26/17 21:43 99 Trach Collar 28 I/O 03/26/17 03/26/17 03/26/17 03/27/17 03/27/17 03/27/17 06:59 14:59 22:59 06:59 14:59 22:59 Intake Total 412 ml 246 ml 628 ml Output Total 525 ml 450 ml Balance -113 ml -204 ml 628 ml Intake IV Total 412 ml 246 ml 540 ml Tube Feeding 88 ml Output Urine Total 525 ml 450 ml # Voids 3 # Bowel Movements 1 Result Diagram: 03/27/17 0417 03/27/17 0417 Imaging Last Impressions Chest X-Ray 03/26/17 0600 Signed Impressions: Service Date/Time: Sunday, March 26, 2017 03:15 - CONCLUSION: Stable chest x-ray with left basilar opacity representing atelectasis or airspace consolidation. Tomi Denise MD Upper Extremity Ultrasound 03/25/17 0000 Signed Impressions: Service Date/Time: Saturday, March 25, 2017 16:31 - CONCLUSION: 1. Occlusive thrombus in the right cephalic vein. 2. No deep venous thrombosis left arm. Dakota Suarez MD Lung Scan-VQ Nuclear Medicine 03/25/17 0000 Signed Impressions: Service Date/Time: Saturday, March 25, 2017 13:39 - CONCLUSION: No scintigraphic findings of pulmonary embolus. Jacky Guadarrama MD Lower Extremity Ultrasound 03/25/17 0000 Signed Impressions: Service Date/Time: Saturday, March 25, 2017 16:03 - CONCLUSION: Probable deep venous thrombosis within the right posterior tibial veins. Bret Calderón MD Head CT 03/25/17 Signed Impressions: Service Date/Time: Saturday, March 25, 2017 11:52 - CONCLUSION: 1. Moderate cerebral atrophy. 2. Old lacunar infarcts within the bilateral basal ganglia. 3. No acute infarct, acute hemorrhage, mass effect or extra axial fluid collections. Bret Calderón MD Objective Remarks Awake and alert, non verbal trach present with yellowish discharge Bilateral rhonchi in BL lung seo Medications and IVs Current Medications Medications (Trade) Dose Ordered Sig/Alea Route Start Time Stop Time Status Last Admin (NS 1000 ml Inj) 1,000 ml @ 42 mls/hr [id number] IV 03/25/17 14:31 03/25/17 20:42 (NS Flush) 2 ml UNSCH PRN IV FLUSH 03/25/17 14:45 (NS Flush) 2 ml BID IV FLUSH 03/25/17 21:00 03/27/17 09:37 (Tylenol) 650 mg Q6H PRN PO 03/25/17 14:45 (Protonix Inj) 40 mg DAILY IV 03/26/17 09:00 03/27/17 09:37 (Heparin Inj) 5,000 units Q12H SQ 03/25/17 16:00 03/27/17 15:07 Miscellaneous Information 1 Q361D XX 03/25/17 14:45 (Chlorhexidine 2% Cloth) 3 pack Taper DAILY@04 TOP 03/26/17 04:00 03/22/18 03:59 03/27/17 02:59 (Chlorhexidine 2% Cloth) 3 pack UNSCH PRN TOP 03/25/17 14:45 (Genoveva-Colace) 1 tab BID PO 03/25/17 21:00 03/27/17 09:37 (Milk Of Magnesia Liq) 30 ml Q12H PRN PO 03/25/17 14:45 (Senokot) 17.2 mg Q12H PRN PO 03/25/17 14:45 (Dulcolax Supp) 10 mg DAILY PRN RECTAL 03/25/17 14:45 (Lactulose Liq) 30 ml DAILY PRN PO 03/25/17 14:45 (Peridex 0.12% Liq) 15 ml BID@08,20 MT 03/25/17 20:00 03/27/17 09:38 (D50w (Vial) Inj) 50 ml UNSCH PRN IV 03/25/17 15:00 Glucagon 1 mg 1 mg UNSCH PRN OTHER 03/25/17 15:00 Piperacillin Sod/ Tazobactam Sod 50 ml @ 100 mls/hr Q6H IV 03/25/17 17:00 03/27/17 19:15 (Zithromax Inj/ NS 250 ml Inj) 250 ml @ 250 mls/hr Q24H IV 03/25/17 15:00 03/27/17 17:44 (Pletal) 50 mg BID G-TUBE 03/26/17 09:00 03/27/17 09:38 (Plavix) 75 mg DAILY G-TUBE 03/26/17 09:00 03/27/17 09:38 (Levsin) 0.125 mg BID G-TUBE 03/26/17 09:00 03/27/17 09:00 (Lopressor) 50 mg BID G-TUBE 03/26/17 09:00 03/27/17 09:37 ([place] 10-325 Mg) 1 tab Q6H PRN PO 03/26/17 07:15 03/27/17 15:07 (Xanax) 0.25 mg Q8H PRN PO 03/26/17 17:00 03/27/17 15:06 (Haldol Inj) 2 mg Q4H PRN IV 03/27/17 16:30 Date of Insertion: Mar 25, 2017 A/P Assessment and Plan This is a 66-year-old male, that presented to the ED emergently secondary to respiratory distress. Per report from his the patient was not feeling well last night complaint of difficulty breathing this a.m., EMS was called. Upon EMS arrival the pulse oximetry was noted to be in the 70s, the patient has a tracheostomy in situ which was suctioned O2 saturation increased to the 90s. Upon arrival to the ED the patient was noted to be tachycardic febrile and ABG on room air resulted in a PaO2 of 50. A VQ scan was ordered per Ed secondary to the patient has CKD stage IV, with a presenting creatinine of 2.2, to rule out pulmonary embolus. The patient was placed on 35% trach collar with O2 saturation 99%. The patient's temperature upon admission 103.5, and a noted leukocytosis with WBC count of 14.2. A presumptive diagnosis of sepsis, and workup/protocol was initiated. The patient received in the ED Flagyl, vancomycin and Zosyn. The patient has a significant past medical history of CAD , PAD and previously on Coumadin which was discontinued one week ago secondary to bleeding around the tracheostomy site. The patient has a history significant for laryngeal cancer diagnosed 09/2015 and has received XRT, and chemotherapy with resultant tracheostomy. Recurrence was noted 10/2016. The patient previously had advanced the diet to mechanical soft and liquids, but recently began having issues with nausea and vomiting and was placed on tube feeds only. The patient has a history of aspiration pneumonia previously hospitalized 09/2016. Critical care medicine was consulted for management. Assessment Severe Sepsis Probable aspiration akudrektw-mzwfitsi-hshjlsnx Polycystic kidneys Acute on chronic kidney disease Chronic kidney disease stage IV History of renal stents Coronary artery disease status post PCI History of CABG 11/2012 Hypertension Hyperlipidemia PAD Congestive heart failure History of bilateral femoral stent placement Peripheral neuropathy GERD Plan by systems: Neurologic: --Avoid sedative type medications --Hold gabapentin for now --[place] 10/325 mg every 6 hours when necessary pain 03/27 Patient agitated earlier today - will start on Seroquel. Continue Sitter. Respiratory: --Apply trach collar 35%, humidified oxygen --Bronchodilators every 4 hours schedule every 2 hours when necessary --Maintain O2 sat greater than 92% --03/25 chest x-rayminimal atelectatic process ,stable chest x-ray no acute, cardiopulmonary process --03/25 VQ scan-negative for DVT --03/26 Repeat chest x-ray -left lower lobe basilar opacity Cardiovascular: --03/25-EKG sinus tachycardia with noted ST changes, reviewed similar to previous admission --Dr. Narayanan reservation sales agent follows patient on outpatient basis --05/16 ECHO-showed EF 4550 percent tricuspid valve mild regurgitation, mild diffuse hypokinesis --09/17 stress test- fixed diffusion defect anterior wall EF 45% --03/25-echo-EF 50%, LAE, mild mitral valve regurgitation, trace TR. Pulmonary pressures within normal limits --Continue Plavix 75 mg/day, and Cilostazol 50 mg BID -patient was previously on Coumadin it was stopped approximately 1 week ago secondary to bleeding around tracheostomy site --03/25 BNP-1077 --Resume metoprolol 50 mg twice a day Renal: --Creatinine stable at 2.1 -- Strict I/Os FEN/GI: --Nutrition consult-2 begin tube feeds --Begin gentle hydration normal saline at 42 cc/hour --Nothing by mouth for now, patient had a history of aspiration pneumonia . The patient previously was on a mechanical soft diet with thickened liquids consistency recently unable to tolerate recently was transitioned to [place] 6 cans per dayper Gtube with recent complaints of bloating fullness and discomfort --Continue Protonix --Zofran for nausea Heme/ID: --03/25 blood urine cultures NGTD --03/25 sputum [id number] cocci in pairs and chains --Patient received in ED 03/25 Flagyl, vancomycin, and Zosyn 1 dose --Empiric antibiotics initiated Zosyn and azithromycin (day 2) --Monitor CBC, leukocytosis resolved 03/27 Hemoglobin dropped to 6.8 - transfuse 1 unit PRBC ordered. Monitor hemoglobin. Hold heparin SQ and Plavix. Consult GI. Place on a protonix drip. Endocrine: --Glucose monitoring per ICU protocol low dose regimen sliding scale -- SSI Prophylaxis: GI Prophylaxis Protonix DVT Prophylaxis-ultrasound bilateral upper extremities negative for DVT. Bilateral lower extremities, DVT right posterior tibial vein, -- SCDs left leg Dc heparin SQ due to anemia. Abiel Bethea MD Mar 27, 2017 20:01
[2017-03-27] MEDS: PANTOPRAZOLE INJ 80 MG in SODIUM CHLORIDE 0.9% INJ 100 ML IV SCH (22:30)
[2017-03-28] VITALS (8 sets, daily range): BP systolic 116–194; BP diastolic 60–90; PULSE 89–105; RESP 18–20; TEMP 97.3–98.7; O2SAT 97–100
[2017-03-28] MEDS: PIPERACIL-TAZO 3.375 GM PREMIX 50 ML IV SCH ×5 (00:31→23:07)
[2017-03-28] MEDS: ACETAMINOPHEN/HYDROcodone 325 MG/10 MG TAB PO PRN ×6 (01:31→23:33)
[2017-03-28] MEDS: RESP: ALBUTEROL 2.5 MG/IPRATROPIUM 0.5 MG NEB (SCH) INH ×4 (03:50→20:31)
[2017-03-28] MEDS: CHLORHEXIDINE GLUCONATE 2 % 1 PACK (2 CLOTHS) TOP SCH (04:00)
[2017-03-28] MEDS: ACETAMINOPHEN 325 MG TAB PO PRN (04:48)
[2017-03-28 05:14] LABS: AUTOMATED NEUTROPHIL # 8.5 TH/MM3 (1.8-7.7); BASOPHIL # 0.1 TH/MM3 (0-0.2); BASOPHIL % 0.8 % (0.0-2.0); EOSINOPHIL # 0.2 TH/MM3 (0-0.4); EOSINOPHIL % 1.6 % (0.0-4.0); HEMATOCRIT 31.2 % (39.0-51.0); HEMO FLAGS DIFF FINAL; LYMPH % 7.7 % (9.0-44.0); LYMPHOCYTE # 0.8 TH/MM3 (1.0-4.8); MEAN CELL VOLUME 82.2 FL (80.0-100.0); MEAN CORPUSCULAR HGB CONC 32.9 % (32.0-36.0); MONO % 8.8 % (0.0-8.0); NEUT % 81.1 % (16.0-70.0); PLATELET COUNT 309 TH/MM3 (150-450); RED BLOOD COUNT 3.79 MIL/MM3 (4.50-5.90); RED CELL DISTRIBUTION WIDTH 17.1 % (11.6-17.2); WHITE BLOOD COUNT 10.5 TH/MM3 (4.0-11.0)
[2017-03-28 05:19] LABS: APTT (PATIENT) 41.2 SEC (24.3-30.1); INTERNATIONAL NORMALIZED RATIO 1.4 RATIO; PROTHROMBIN TIME - PATIENT 15.8 SEC (9.8-11.6)
[2017-03-28 05:51] LABS: ANION GAP 12 MEQ/L (5-15); AST (GOT) 16 U/L (15-37); BICARBONATE 19.5 MEQ/L (21.0-32.0); BLOOD UREA NITROGEN 37 MG/DL (7-18); CHLORIDE 108 MEQ/L (98-107); GLOMERULAR FILTRATION RATE 32 ML/MIN (>89); MAGNESIUM 2.2 MG/DL (1.5-2.5); POTASSIUM 3.8 MEQ/L (3.5-5.1); SODIUM (NA) 139 MEQ/L (136-145)
[2017-03-28 05:53] LABS: ALT (GPT) 13 U/L (12-78)
[2017-03-28 05:55] LABS: ALKALINE PHOSPHATASE 156 U/L (45-117); TOTAL BILIRUBIN ADULT 0.7 MG/DL (0.2-1.0)
[2017-03-28] MEDS: INSULIN ASPART SUPPLEMENTAL SCALE SQ SCH ×4 (06:44→20:56)
[2017-03-28] MEDS: CHLORHEXIDINE 0.12% (ORAL KIT) 15 ML CUP MT SCH ×2 (08:00→20:56)
[2017-03-28] MEDS: ALPRAZolam 0.25 MG TAB PO PRN ×2 (08:32→20:55)
[2017-03-28] MEDS: HYOSCYAMINE 0.125 MG TAB G-TUBE SCH ×2 (08:32→20:55)
[2017-03-28] MEDS: METOPROLOL TARTRATE 50 MG TAB G-TUBE SCH ×2 (08:32→20:55)
[2017-03-28] MEDS: DOCUSATE SODIUM 50 MG/SENNA 8.6 MG TAB PO SCH (08:32)
[2017-03-28] MEDS: SODIUM CHLORIDE 0.9% FLUSH 10 ML FLUSH IV FLUSH SCH ×2 (09:00→20:56)
--- NOTE | 2017-03-28 09:39 | MB ---
cc: MAGDALENA RIVERA DATE OF CONSULTATION: 03/27/2017 DATE OF : 1950 REASON FOR CONSULTATION Patient with a history of recurrent head and neck cancer. HISTORY OF PRESENT ILLNESS Mr. 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 He was originally diagnosed in early 2016. He was found to have a large supraglottic mass which involved the false vocal cord, epiglottic fold and the right side of the epiglottis. There was also involvement of the right vocal cord. The patient was seen at the [facility] in [place] and deemed not a candidate for chemotherapy or surgery. He was treated with single modality radiation treatments. He had good response to the treatment and subsequently did not have any residual disease. He was then closely monitored with periodic follow-ups and CT scans. Unfortunately he now has recurrent disease. He was found to have a mass in the right larynx region. There was destruction of the right side of the thyroid cartilage. There was displacement of the airway at the level of the larynx towards the left and the airway was narrowed. The patient underwent tracheostomy. The patient has had declining performance status and he was in rehab. On his last admission the plan was to see this patient in the clinic once he was discharged from the hospital and to assess for radiation with concurrent monoclonal antibody treatment; however, the patient now presented to the emergency department with acute respiratory distress. He was brought to the emergency department via EMS and was found to have a fever of 103. He was tachycardic. The patient is currently being treated for aspiration pneumonia and sepsis. He is in the intensive care unit. He is agitated and currently in restraints. He was severely anemic today and received packed red blood cell transfusion. He was noted to have dark stools and diarrhea. He currently has a trach collar with 35% humidified oxygen. The patient was recently found to have deep vein thrombosis in the right posterior tibial vein. His anticoagulation is now on hold. Plavix has been discontinued because of acute drop in hemoglobin and possibility of GI bleeding. REVIEW OF SYSTEMS A comprehensive 14-point review of systems was completed which is negative except as described in the HPI. PAST MEDICAL HISTORY 1. Recurrent head and neck cancer. 2. Diabetes type 2. 3. Chronic kidney disease, stage IV. 4. Hyperlipidemia. 5. History of [place] 2012. 6. History of PCI and stent placement. 7. Peripheral arterial disease. 8. Hypertension. 9. GERD. 10.Aspiration pneumonia. PAST SURGICAL HISTORY Status post tracheostomy. MEDICATIONS 1. Clayton 10 x 325 mg, one tablet p.o. q.4h. 2. Pantoprazole 80 mg IV. 3. Haldol 2 mg IV q.4h. 4. Xanax 0.25 mg p.o. q.8h. 5. Cilostazol 50 mg b.i.d. 6. Levsin 0.125 mg b.i.d. 7. Metoprolol 50 mg b.i.d. 8. Senna, one tablet p.o. b.i.d. 9. Zosyn q.6h. p.r.n. 10.DuoNeb, one amp q.6h. p.r.n. 11.Sliding scale insulin. 12.Azithromycin q.24h. IV. 13.Milk of magnesia. 14.Dulcolax. 15.Lactulose. ALLERGIES 1. HMG-COA REDUCTASE INHIBITORS. 2. NIACIN. 3. FISH OIL. FAMILY HISTORY The family history was reviewed and noncontributory to this admission. SOCIAL HISTORY Does not smoke cigarettes, does not drink alcohol. No illicit drug use. PHYSICAL EXAMINATION VITAL SIGNS: Blood pressure 135/53, pulse in the 90s, temperature 95.5. GENERAL: An acutely ill patient who is agitated, currently in restraints. HEENT: Pupils are equal, round and reactive to light. EOMI. No oral thrush. No oral lesions. NECK: Trach collar in place. There is a visible mucus plug that is at the edge of the stoma. CHEST: Bilateral rhonchi. CARDIAC: S1, S2, tachycardic. ABDOMEN: Soft, nontender, nondistended. Bowel sounds are present. EXTREMITIES: Without any edema, erythema or cyanosis. SKIN: Without any petechiae, lesion or bruises. NEUROLOGIC: No focal deficits. PSYCHIATRIC: He is agitated at this time. LABORATORY WBC 8.7, hemoglobin 6.8, platelet count 257. Serum chemistries show sodium of 140, potassium 4.4, chloride 108, CO2 22.7, anion gap 9, BUN 37, creatinine 2.17, GFR 30, calcium 7.9, phosphorus 3.1, magnesium 2.3, BNP 1077, total protein 5.9, albumin 1.9. IMAGING Imaging was reviewed in the EMR. ASSESSMENT AND PLAN This is a 66-year-old male with recurrent pharyngeal carcinoma who is status post tracheostomy. He is brought to the emergency room with acute respiratory distress, tachycardia, fevers and leukocytosis. 1. Recurrent pharyngeal carcinoma. Previously the plan was that after discharge from rehab he would follow-up in the oncology clinic for assessment of concurrent chemotherapy and treatment with monoclonal antibody; however, he has acutely decompensated with respiratory distress. He has multiple co-morbidities. It will be very difficult to treat him at this time. I will discuss this case with radiation oncology for palliative radiation treatment; however, these will have to be done when the patient is more stable. Currently he has respiratory distress. He has significant anemia and possible GI bleeding. We need to address these acute issues. The patient's family was not present when I evaluated the patient. Palliative Care consult should be considered and goals of treatment should be addressed again. Due to multiple medical issues and poor performance status palliative care would also be appropriate for this patient. I will discuss this with the family tomorrow. 2. Acute anemia with drop in hemoglobin to 6.8. Agree with two units of packed red blood cell transfusion. GI consult. 3. Acute respiratory distress and pneumonia. The patient is currently on antibiotics. Further treatment per the primary team. 4. Delirium due to sepsis and respiratory failure. Currently on Seroquel and Haldol. The patient is requiring restraints 5. The overall prognosis for this patient is very poor. Will continue supportive care as the family desires full code and full care. Thank you for allowing me to participate in the care of this patient. I will continue to follow this patient along. MD VANCE Lima/SANGITA /12:23 AM /9:08 AM EZEKIEL
--- NOTE | 2017-03-28 09:48 | PD.CONS ---
HPI History of Present Illness This is a 66 year old with extensive past medical history significant for Laryngeal cancer,Status post tracheostomy, S/p PEG, diabetes mellitus 2 chronic kidney disease stage IV, hyperlipidemia, history of [place] 2012, history of PCI stent placement 2012, PAD, hypertension, GERD, aspiration pneumonia, laryngeal tumor recurrence who is here for evaluation of respiratory distress. Gi have been consulted for drop in hgb and reported black stools. yesterday hgb 6.8 with good response to 2 units of blood, today 10.3. in the room and is helping with HPI. Yesterday, patient started having soft stools about 6 times, these were dark black in the beginning but turned light at the end, he normally has constipation. He also has been complaining of lower abd pain. He had EGD/PEG in November of 2016 and that showed mild gastritis, bx was benign. He is on Plavix, but this is on hold now. He had colonoscopy years ago. Denies hematemesis, or hematochezia. (Alex Martinez) PFSH Past Medical History Laryngeal cancer, diabetes mellitus 2 chronic kidney disease stage IV, hyperlipidemia, history of [place] 2012, history of PCI stent placement 2012, PAD, hypertension, GERD, aspiration pneumonia, laryngeal tumor recurrence Past Surgical History Status post tracheostomy, for oral bypass, PCI stent placement, G-tube placement, and surgery for laryngeal cancer (Alex Martinez) Coded Allergies: HMG-CoA Reductase Inhibitors (Verified Allergy, Severe, 03/22/17) Niacin (Verified Allergy, Severe, 03/22/17) CAUSES HIM TO FEEL HOT Oily Fish (Verified Allergy, Intermediate, Diarrhea, 03/22/17) *MDRO Multi-Drug Resistant Organism (Verified Adverse Reaction, Unknown, MRSA, 03/27/17) MRSA screen (nares) POSITIVE - 03/26/17 MRSA (sputum) 03/25/17 Medications Current Medications Medications (Trade) Dose Ordered Sig/Alea Route Start Time Stop Time Status Last Admin (NS 1000 ml Inj) 1,000 ml @ 42 mls/hr [id number] IV 03/25/17 14:31 03/25/17 20:42 (NS Flush) 2 ml UNSCH PRN IV FLUSH 03/25/17 14:45 (NS Flush) 2 ml BID IV FLUSH 03/25/17 21:00 03/27/17 21:00 (Tylenol) 650 mg Q6H PRN PO 03/25/17 14:45 03/28/17 04:48 (Heparin Inj) 5,000 units Q12H SQ 03/25/17 16:00 Hold 03/27/17 15:07 Miscellaneous Information 1 [id number] XX 03/25/17 14:45 (Chlorhexidine 2% Cloth) 3 pack Taper DAILY@04 TOP 03/26/17 04:00 03/22/18 03:59 03/27/17 02:59 (Chlorhexidine 2% Cloth) 3 pack UNSCH PRN TOP 03/25/17 14:45 (Genoveva-Colace) 1 tab BID PO 03/25/17 21:00 03/28/17 08:32 (Milk Of Magnesia Liq) 30 ml Q12H PRN PO 03/25/17 14:45 (Senokot) 17.2 mg Q12H PRN PO 03/25/17 14:45 (Dulcolax Supp) 10 mg DAILY PRN RECTAL 03/25/17 14:45 (Lactulose Liq) 30 ml DAILY PRN PO 03/25/17 14:45 (Peridex 0.12% Liq) 15 ml BID@08,20 MT 03/25/17 20:00 03/27/17 09:38 (D50w (Vial) Inj) 50 ml UNSCH PRN IV 03/25/17 15:00 Glucagon 1 mg 1 mg UNSCH PRN OTHER 03/25/17 15:00 Piperacillin Sod/ Tazobactam Sod 50 ml @ 100 mls/hr Q6H IV 03/25/17 17:00 03/28/17 04:48 (Zithromax Inj/ NS 250 ml Inj) 250 ml @ 250 mls/hr Q24H IV 03/25/17 15:00 03/27/17 17:44 (Pletal) 50 mg BID G-TUBE 03/26/17 09:00 03/27/17 22:30 (Plavix) 75 mg DAILY G-TUBE 03/26/17 09:00 Hold 03/27/17 09:38 (Levsin) 0.125 mg BID G-TUBE 03/26/17 09:00 03/28/17 08:32 (Lopressor) 50 mg BID G-TUBE 03/26/17 09:00 03/28/17 08:32 (Xanax) 0.25 mg Q8H PRN PO 03/26/17 17:00 03/28/17 08:32 Haloperidol Lactate 2 mg 2 mg Q4H PRN IV 03/27/17 16:30 (Protonix Inj/NS Inj) 100 ml @ 10 mls/hr CONTINUOUS IV 03/27/17 22:00 03/27/17 22:30 ([place]e 10-325 Mg) 1 tab Q4H PRN PO 03/27/17 23:15 03/28/17 05:33 Family History Non contributory Social History Denies alcohol or illicit drug use. Former smoker (Alex Martinez) Review of Systems Constitutional: COMPLAINS OF: Fatigue Endocrine: DENIES: Polyuria Eyes: DENIES: Double Vision Ears, nose, mouth, throat: DENIES: Hoarseness Respiratory: DENIES: Shortness of breath Cardiovascular: DENIES: Lower Extremity Edema Gastrointestinal: COMPLAINS OF: Abdominal pain, Diarrhea, Difficulty Swallowing , Odynophagia, DENIES: Black stools, Bloody stools, Nausea, Vomiting, Swelling of Abdomen, Heartburn, Hematemesis Genitourinary: DENIES: Hematuria Musculoskeletal: DENIES: Neck pain Integumentary: DENIES: Jaundice Hematologic/lymphatic: DENIES: Bruising Immunologic/allergic: DENIES: Eczema Neurologic: DENIES: Abnormal gait Psychiatric: DENIES: Anxiety (Alex Martinez) GI Exam Vitals I&O Vital Signs Date Time Temp Pulse Resp B/P Pulse Ox O2 Delivery O2 Flow Rate FiO2 03/28/17 08:29 97.4 105 20 194/90 100 03/28/17 08:25 97 Trach Collar 5.00 03/28/17 05:46 98.1 98 18 136/63 99 03/28/17 01:02 98.3 93 18 116/60 98 03/27/17 21:18 98 Trach Collar 6.00 03/27/17 21:05 98.0 109 18 128/72 98 03/27/17 18:04 95.5 99 22 135/53 98 03/27/17 16:00 80 03/27/17 16:00 98.0 86 18 118/61 96 03/27/17 13:00 77 15 106/59 100 03/27/17 12:00 80 03/27/17 12:00 98.2 77 13 110/56 100 03/27/17 11:00 80 13 111/55 100 03/27/17 10:22 97 Trach Collar 28 03/27/17 10:00 66 13 109/58 100 I/O 03/27/17 03/27/17 03/27/17 03/28/17 03/28/17 03/28/17 07:00 15:00 23:00 07:00 15:00 23:00 Intake Total 628 ml 541 ml 538 ml Output Total 350 ml Balance 628 ml 541 ml 188 ml Intake IV Total 540 ml 144 ml 366 ml Tube Feeding 88 ml 47 ml 72 ml Packed Cells 250 ml Other 100 ml 100 ml Output Urine Total 350 ml # Voids 3 # Bowel Movements 1 4 1 Imaging Last Impressions Chest X-Ray 03/26/17 0600 Signed Impressions: Service Date/Time: Sunday, March 26, 2017 03:15 - CONCLUSION: Stable chest x-ray with left basilar opacity representing atelectasis or airspace consolidation. Tomi Denise MD Upper Extremity Ultrasound 03/25/17 0000 Signed Impressions: Service Date/Time: Saturday, March 25, 2017 16:31 - CONCLUSION: 1. Occlusive thrombus in the right cephalic vein. 2. No deep venous thrombosis left arm. Dakota Suarez MD Lung Scan-V Nuclear Medicine 03/25/17 0000 Signed Impressions: Service Date/Time: Saturday, March 25, 2017 13:39 - CONCLUSION: No scintigraphic findings of pulmonary embolus. Jacky Guadarrama MD Lower Extremity Ultrasound 03/25/17 0000 Signed Impressions: Service Date/Time: Saturday, March 25, 2017 16:03 - CONCLUSION: Probable deep venous thrombosis within the right posterior tibial veins. Bret Calderón MD Head CT 03/25/17 0000 Signed Impressions: Service Date/Time: Saturday, March 25, 2017 11:52 - CONCLUSION: 1. Moderate cerebral atrophy. 2. Old lacunar infarcts within the bilateral basal ganglia. 3. No acute infarct, acute hemorrhage, mass effect or extra axial fluid collections. Bret Calderón MD Laboratory Test 03/28/17 04:55 White Blood Count 10.5 TH/MM3 Red Blood Count 3.79 MIL/MM3 Hemoglobin 10.3 GM/DL Hematocrit 31.2 % Mean Corpuscular Volume 82.2 FL Mean Corpuscular Hemoglobin 27.0 PG Mean Corpuscular Hemoglobin 32.9 % Concent Red Cell Distribution Width 17.1 % Platelet Count 309 TH/MM3 Mean Platelet Volume 8.7 FL Neutrophils (%) (Auto) 81.1 % Lymphocytes (%) (Auto) 7.7 % Monocytes (%) (Auto) 8.8 % Eosinophils (%) (Auto) 1.6 % Basophils (%) (Auto) 0.8 % Neutrophils # (Auto) 8.5 TH/MM3 Lymphocytes # (Auto) 0.8 TH/MM3 Monocytes # (Auto) 0.9 TH/MM3 Eosinophils # (Auto) 0.2 TH/MM3 Basophils # (Auto) 0.1 TH/MM3 CBC Comment DIFF FINAL Differential Comment Prothrombin Time 15.8 SEC Prothromb Time International 1.4 RATIO Ratio Activated Partial 41.2 SEC Thromboplast Time Sodium Level 139 MEQ/L Potassium Level 3.8 MEQ/L Chloride Level 108 MEQ/L Carbon Dioxide Level 19.5 MEQ/L Anion Gap 12 MEQ/L Blood Urea Nitrogen 37 MG/DL Creatinine 2.10 MG/DL Estimat Glomerular Filtration 32 ML/MIN Rate Random Glucose 123 MG/DL Calcium Level 8.2 MG/DL Phosphorus Level 3.1 MG/DL Magnesium Level 2.2 MG/DL Total Bilirubin 0.7 MG/DL Aspartate Amino Transf 16 U/L (AST/SGOT) Alanine Aminotransferase 13 U/L (ALT/SGPT) Alkaline Phosphatase 156 U/L Total Protein 6.3 GM/DL Albumin 1.9 GM/DL Date/Time Procedure Status Source Growth 03/25/17 11:10 Urine Culture - Final Complete Urine Catheterized Urine NO GROWTH IN 48 HOURS. 03/25/17 10:30 Gram Stain - Final Complete Sputum Endotracheal 03/25/17 10:30 Sputum Culture - Final Complete S. Aureus Mrsa 03/25/17 10:10 Aerobic Blood Culture - Preliminary Resulted Blood Peripheral NO GROWTH IN 2 DAYS 03/25/17 10:10 Anaerobic Blood Culture - Preliminary Resulted Blood Peripheral NO GROWTH IN 2 DAYS Physical Examination HEENT: normocephalic; atraumatic; no jaundice. NECK: trach CHEST: Chest is clear to auscultation and percussion. CARDIAC: Regular rate and rhythm with no murmur gallop or rubs. ABDOMEN: Soft, nondistended, lower abd tenderness; no hepatosplenomegaly; bowel sounds are present in all four quadrants. PEG EXTREMITIES: No clubbing, cyanosis, or edema. SKIN: Normal; no rash; no jaundice. CORRECTION OFFICER: alert and oriented times three. (Alex Martinez) Assessment and Plan Plan - GI bleed/ melena, drop in hgb- Gi have been consulted for drop in hgb and reported black stools. yesterday hgb 6.8 with good response to 2 units of blood, today 10.3. in the room and is helping with HPI. Yesterday, patient started having soft stools about 6 times, these were dark black in the beginning but turned light at the end, he normally has constipation. He also has been complaining of lower abd pain. He had EGD/PEG in November of 2016 and that showed mild gastritis, bx was benign. He is on Plavix, but this is on hold now. He had colonoscopy years ago. Denies hematemesis, or hematochezia. PPI, hemodynamically stable, no black stools today - Possible aspiration [id number] on abx per attending - history significant for Laryngeal cancer,Status post tracheostomy, S/p PEG, diabetes mellitus 2 chronic kidney disease stage IV, hyperlipidemia, history of [place] 2012, history of PCI stent placement 2012, PAD , hypertension, Plan: - He is receiving TF, so not able to do EGD today - Plan for EGD on Friday, unless actively bleeding - Obtain consents - cont. ppi - Monitor hh - Transfuse as needed - Notify GI for active bleed - Cont. to hold Plavix - Supportive care - Patient seen and examined by Dr. Welch and myself and this note is written on his behalf. (Alex Martinez) Physician Comments Patient seen and examined Agree with above Continue with current supportive care Monitor labs Plan for EGD on Friday (Ti Welch MD) Alex Martinez Mar 28, 2017 09:48 Ti Welch MD Mar 28, 2017 22:16
--- NOTE | 2017-03-28 10:02 | PD.ONC.PN ---
Subjective Subjective Remarks Afebrile overnight. Patient resting in room in restraints. Very agitated and wanting restraints to be removed. Sitter at bedside as well. at bedside is very upset that patient is in restraints and wants patient transferred to [facility]. Objective Data Date Time Temp Pulse Resp B/P Pulse Ox O2 Delivery O2 Flow Rate FiO2 03/28/17 08:29 97.4 105 20 194/90 100 03/28/17 08:25 97 Trach Collar 5.00 28 03/28/17 05:46 98.1 98 18 136/63 99 03/28/17 01:02 98.3 93 18 116/60 98 03/27/17 21:18 98 Trach Collar 6.00 28 03/27/17 21:05 98.0 109 18 128/72 98 03/27/17 18:04 95.5 99 22 135/53 98 03/27/17 16:00 80 03/27/17 16:00 98.0 86 18 118/61 96 03/27/17 13:00 77 15 106/59 100 03/27/17 12:00 80 03/27/17 12:00 98.2 77 13 110/56 100 03/27/17 11:00 80 13 111/55 100 03/27/17 10:22 97 Trach Collar 28 03/27/17 10:00 66 13 109/58 100 03/28/17 03/28/17 03/28/17 07:00 15:00 23:00 Intake Total 538 ml Output Total 350 ml Balance 188 ml Result Diagram: 03/28/17 0455 03/28/17 0455 Laboratory Results Laboratory Tests Test 03/28/17 04:55 White Blood Count 10.5 TH/MM3 Red Blood Count 3.79 MIL/MM3 Hemoglobin 10.3 GM/DL Hematocrit 31.2 % Mean Corpuscular Volume 82.2 FL Mean Corpuscular Hemoglobin 27.0 PG Mean Corpuscular Hemoglobin 32.9 % Concent Red Cell Distribution Width 17.1 % Platelet Count 309 TH/MM3 Mean Platelet Volume 8.7 FL Neutrophils (%) (Auto) 81.1 % Lymphocytes (%) (Auto) 7.7 % Monocytes (%) (Auto) 8.8 % Eosinophils (%) (Auto) 1.6 % Basophils (%) (Auto) 0.8 % Neutrophils # (Auto) 8.5 TH/MM3 Lymphocytes # (Auto) 0.8 TH/MM3 Monocytes # (Auto) 0.9 TH/MM3 Eosinophils # (Auto) 0.2 TH/MM3 Basophils # (Auto) 0.1 TH/MM3 CBC Comment DIFF FINAL Differential Comment Prothrombin Time 15.8 SEC Prothromb Time International 1.4 RATIO Ratio Activated Partial 41.2 SEC Thromboplast Time Sodium Level 139 MEQ/L Potassium Level 3.8 MEQ/L Chloride Level 108 MEQ/L Carbon Dioxide Level 19.5 MEQ/L Anion Gap 12 MEQ/L Blood Urea Nitrogen 37 MG/DL Creatinine 2.10 MG/DL Estimat Glomerular Filtration 32 ML/MIN Rate Random Glucose 123 MG/DL Calcium Level 8.2 MG/DL Phosphorus Level 3.1 MG/DL Magnesium Level 2.2 MG/DL Total Bilirubin 0.7 MG/DL Aspartate Amino Transf 16 U/L (AST/SGOT) Alanine Aminotransferase 13 U/L (ALT/SGPT) Alkaline Phosphatase 156 U/L Total Protein 6.3 GM/DL Albumin 1.9 GM/DL Culture Results Microbiology Date/Time Procedure Status Source Growth 03/25/17 10:06 Aerobic Blood Culture - Preliminary Resulted Blood Peripheral NO GROWTH IN 2 DAYS 03/25/17 10:06 Anaerobic Blood Culture - Preliminary Resulted Blood Peripheral NO GROWTH IN 2 DAYS 03/25/17 10:10 Aerobic Blood Culture - Preliminary Resulted Blood Peripheral NO GROWTH IN 2 DAYS 03/25/17 10:10 Anaerobic Blood Culture - Preliminary Resulted Blood Peripheral NO GROWTH IN 2 DAYS 03/25/17 10:30 Gram Stain - Final Complete Sputum Endotracheal 03/25/17 10:30 Sputum Culture - Final Complete S. Aureus Mrsa 03/25/17 11:10 Urine Culture - Final Complete Urine Catheterized Urine NO GROWTH IN 48 HOURS. Administered Medications Medications (Trade) Dose Ordered Sig/Alea Route PRN Reason Start Time Stop Time Status Last Admin Dose Admin Sodium Chloride (NS 1000 ml Inj) 1,000 ml @ 42 mls/hr [id number] IV 03/25/17 14:31 03/25/17 20:42 Sodium Chloride (NS Flush) 2 ml BID IV FLUSH 03/25/17 21:00 03/27/17 21:00 Acetaminophen (Tylenol) 650 mg Q6H PRN PO PAIN 1-10 AND/OR FEVER >101F 03/25/17 14:45 03/28/17 04:48 Heparin Sodium (Porcine) (Heparin Inj) 5,000 units Q12H SQ 03/25/17 16:00 Hold 03/27/17 15:07 Chlorhexidine Gluconate (Chlorhexidine 2% Cloth) 3 pack Taper DAILY@04 TOP 03/26/17 04:00 03/22/18 03:59 03/27/17 02:59 Senna/Docusate Sodium (Genoveva-Colace) 1 tab BID PO 03/25/17 21:00 03/28/17 08:32 Chlorhexidine Gluconate 15 ml 15 ml BID@08,20 MT 03/25/17 20:00 03/27/17 09:38 Piperacillin Sod/ Tazobactam Sod 50 ml @ 100 mls/hr Q6H IV 03/25/17 17:00 03/28/17 04:48 Azithromycin/ Sodium Chloride (Zithromax Inj/ NS 250 ml Inj) 250 ml @ 250 mls/hr Q24H IV 03/25/17 15:00 03/27/17 17:44 Cilostazol (Pletal) 50 mg BID G-TUBE 03/26/17 09:00 03/27/17 22:30 Clopidogrel Bisulfate (Plavix) 75 mg DAILY G-TUBE 03/26/17 09:00 Hold 03/27/17 09:38 Hyoscyamine Sulfate (Levsin) 0.125 mg BID G-TUBE 03/26/17 09:00 03/28/17 08:32 Metoprolol Tartrate (Lopressor) 50 mg BID G-TUBE 03/26/17 09:00 03/28/17 08:32 Alprazolam 0.25 mg 0.25 mg Q8H PRN PO ANXIETY 03/26/17 17:00 03/28/17 08:32 Pantoprazole Sodium/Sodium Chloride (Protonix Inj/NS Inj) 100 ml @ 10 mls/hr CONTINUOUS IV 03/27/17 22:00 03/27/17 22:30 Acetaminophen/ Hydrocodone Bitart ([place] 10-325 Mg) 1 tab Q4H PRN PO PAIN SCALE 7 TO 10 03/27/17 23:15 03/28/17 05:33 Objective Remarks GENERAL: Middle aged debilitated male supine in bed in restraints. SKIN: Warm and dry. HEAD: Normocephalic. EYES: No injection or drainage. NECK: Supple, trachea midline. trach in place CARDIOVASCULAR: Regular rate and rhythm RESPIRATORY: anterior seo with scattered rhonchi GASTROINTESTINAL: Abdomen soft, non-tender, nondistended. EXTREMITIES: No cyanosis NEUROLOGICAL: awake and alert. Assessment/Plan Problem List: (1) Oropharyngeal cancer Status: Acute Plan: --palliative care consulted --patient with poor performance status. --Due to multiple medical issues and poor performance status palliative care would also be appropriate for this patient. (2) DVT (deep venous thrombosis) Status: Acute Plan: +deep vein thrombosis in the right posterior tibial vein. His anticoagulation is now on hold. Plavix has been discontinued because of acute drop in hemoglobin and possibility of GI bleeding. (3) Normocytic anemia Status: Acute Plan: --Acute anemia with drop in hemoglobin to 6.8. --GI following and plans to do EGD Friday --s/p pRBC transfusion (4) Sepsis Status: Acute Plan: --on antibiotic --++aspiration pneumonia and sepsis. --BC no growth --sputum cx + MRSA (5) Confusion Status: Acute Plan: -- Delirium due to sepsis and respiratory failure. --Currently on Seroquel and Haldol. --patient is requiring restraints Assessment 66y/o male with recurrent head and neck cancer admitted with aspiration pneumonia and sepsis. h/o Recurrent head and neck cancer. Diabetes type 2. Chronic kidney disease, stage IV. Hyperlipidemia. History of [place] 2012. History of PCI and stent placement. Peripheral arterial disease. Hypertension. Plan 1. await palliative care consult 2. monitor CBC 3. EGD Friday Attending Statement The exam, history, and the medical decision-making described in the above note were completed with the assistance of the mid-level provider. I reviewed and agree with the findings presented. I attest that I had a [id number] encounter with the patient on the same day, and personally performed and documented my assessment and findings in the medical record. Long discussion with the patient and his Despite multiple ongoing issues and recurrent disease in the setting of co- morbidities-they want to pursue aggressive care' I discussed this case with Dr. Cruz as well. We will consider salvage attempt with XRT and concurrent Cetuximab. If he is stable on friday, plan for XRT simulation. Time spent in discussion with family and coordination of care 45 minutes. Problem Qualifiers (1) DVT (deep venous thrombosis): Qualified Code: I82.441 - Deep vein thrombosis (DVT) of tibial vein of right lower extremity, unspecified chronicity Neeru Pritchett Mar 28, 2017 10:02 Perico Melchor MD Mar 28, 2017 23:21
[2017-03-28] MEDS: CILOSTAZOL 50 MG TAB G-TUBE SCH ×2 (10:28→20:55)
[2017-03-28] MEDS: SODIUM CHLOR 0.9% 1000 ML INJ 1,000 ML IV SCH (13:58)
--- NOTE | 2017-03-28 15:09 | HHI.PR ---
Subjective Remarks Follow up pneumonia, GI bleed, DVT. The patient denies pain currently. Denies dyspnea. Is coughing up phlegm. Objective Vitals Vital Signs Date Time Temp Pulse Resp B/P Pulse Ox O2 Delivery O2 Flow Rate FiO2 03/28/17 12:56 97.4 89 20 142/65 97 03/28/17 11:04 Aerosol Mask 5.00 03/28/17 08:29 97.4 105 20 194/90 100 03/28/17 08:25 97 Trach Collar 5.00 03/28/17 05:46 98.1 98 18 136/63 99 03/28/17 01:02 98.3 93 18 116/60 98 03/27/17 21:18 98 Trach Collar 6.00 03/27/17 21:05 98.0 109 18 128/72 98 03/27/17 18:04 95.5 99 22 135/53 98 03/27/17 16:00 80 03/27/17 16:00 98.0 86 18 118/61 96 I/O 03/27/17 03/27/17 03/27/17 03/28/17 03/28/17 03/28/17 07:00 15:00 23:00 07:00 15:00 23:00 Intake Total 628 ml 541 ml 538 ml Output Total 350 ml Balance 628 ml 541 ml 188 ml Intake IV Total 540 ml 144 ml 366 ml Tube Feeding 88 ml 47 ml 72 ml Packed Cells 250 ml Other 100 ml 100 ml Output Urine Total 350 ml # Voids 3 # Bowel Movements 1 4 1 Result Diagram: 03/28/17 0455 03/28/17 0455 Imaging Last Impressions Chest X-Ray 03/26/17 0600 Signed Impressions: Service Date/Time: Sunday, March 26, 2017 03:15 - CONCLUSION: Stable chest x-ray with left basilar opacity representing atelectasis or airspace consolidation. Tomi Denise MD Upper Extremity Ultrasound 03/25/17 0000 Signed Impressions: Service Date/Time: Saturday, March 25, 2017 16:31 - CONCLUSION: 1. Occlusive thrombus in the right cephalic vein. 2. No deep venous thrombosis left arm. Dakota Suarez MD Lung Scan- Nuclear Medicine 03/25/17 0000 Signed Impressions: Service Date/Time: Saturday, March 25, 2017 13:39 - CONCLUSION: No scintigraphic findings of pulmonary embolus. Jacky Guadarrama MD Lower Extremity Ultrasound 03/25/17 0000 Signed Impressions: Service Date/Time: Saturday, March 25, 2017 16:03 - CONCLUSION: Probable deep venous thrombosis within the right posterior tibial veins. Bret Calderón MD Head CT 03/25/17 0000 Signed Impressions: Service Date/Time: Saturday, March 25, 2017 11:52 - CONCLUSION: 1. Moderate cerebral atrophy. 2. Old lacunar infarcts within the bilateral basal ganglia. 3. No acute infarct, acute hemorrhage, mass effect or extra axial fluid collections. Bret Calderón MD Objective Remarks General: Chronically ill appearing elderly male in no acute distress. Tracheostomy. In soft ankle and wrist restraints. Heart: Regular rate and rhythm. No murmur. Lungs: Scattered rhonchi. Breathing is nonlabored. Abdomen: Soft, nontender, nondistended. Extremities: No lower extremity edema. Psych: Alert, follows commands, answers questions. Procedures None Urinary Catheter: No Date of Insertion: Mar 25, 2017 Vascular Central Line Catheter: No A/P Problem List: (1) DVT (deep venous thrombosis) ICD Code: I82.409 Status: Acute (2) Tracheostomy dependent ICD Code: Z93.0 Status: Acute (3) Head ache ICD Code: R51 Status: Acute (4) Head and neck malignancy ICD Code: C76.0 Status: Acute (5) Pneumonia ICD Code: J18.9 Status: Acute (6) Severe sepsis ICD Code: A41.9 Status: Resolved (7) CKD (chronic kidney disease), stage IV ICD Code: N18.4 Status: Chronic (8) CAD (coronary artery disease) ICD Code: I25.10 Status: Chronic (9) Hypertension ICD Code: I10 Status: Acute (10) Hyperlipidemia ICD Code: E78.5 Status: Acute (11) Anemia ICD Code: D64.9 Status: Acute (12) GI bleed ICD Code: K92.2 Status: Acute Assessment and Plan 1. Pneumonia, MRSA: Continue antibiotics, bronchodilators, supplemental oxygen. 2. Severe sepsis secondary to pneumonia: Sepsis resolved. 3. Agitation: Continue Seroquel. Mental status improving. Discontinue sitter. Restraints as needed. Haldol as needed. 4. Coronary artery disease: Currently asymptomatic. Continue home medications. 5. GI bleed: Appreciate GI recommendations. Planning for EGD on Friday. Continue Protonix drip. 6. Head and neck cancer: Appreciate oncology recommendations. Tube feeds per PEG tube. Tracheostomy in place. 7. Chronic kidney disease stage IV: Stable. 8. Anemia: Secondary to GI bleed. Hemoglobin improved following transfusion. 9. DVT: Plavix and heparin are on hold secondary to GI bleed. Continue cilostazol. 10. Poor prognosis: Appreciate palliative care recommendations. Discussed with Dr. Mae. Patient would be hospice appropriate, however patient and his family at this time desire aggressive care. Problem Qualifiers (1) DVT (deep venous thrombosis): Qualified Code: I82.441 - Deep vein thrombosis (DVT) of tibial vein of right lower extremity, unspecified chronicity Kermit Mendoza MD Mar 28, 2017 15:09
[2017-03-28] MEDS ORDERED: Vancomycin Consult Pharmacy 1 EA OTHER SCH (15:15)
[2017-03-28] MEDS: AZITHROMYCIN INJ 500 MG in SODIUM CHLOR 0.9% 250 ML INJ 250 ML IV SCH (15:19)
--- NOTE | 2017-03-28 15:32 | PD.CONS ---
Consult Service Palliative Care Consult Requested By Dr. Mendoza Primary Care Physician Juliane Briggs MD Reason for Consultation a. To assist with evaluation and management of symptoms including:dyspnea, fatigued b. To assist medical decision maker(s) with: better understanding of current medical conditions; weighing benefits/burdens of medical treatment options; making medical treatment decisions. 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 Patient was diagnosed with malignancy in early 2016. At that time he presented with dysphagia and imaging revealing mass centered in the supraglottic tissue that was 4.2 x 3.6 cm. The margins were ill -defined involvement. According, epiglottic fold, right side of the epiglottis. Patient was seen by [facility] in [place] and was deemed not to be a candidate for chemotherapy for her surgery. Patient was treated with a single modality radiation treatment and had good response to treatment and subsequent imaging did not show any residual disease. He was followed closely with periodic follow-ups and CT scan. Patient recently presented to oncology clinic with complaints of dysphagia feeling lump in his throat. CT scan was ordered but due to patient's insurance issue it was delayed. He was admitted to [facility] in [place] with significant dysphagia and a CT of the neck was ordered, on 02/17/2017 showing a mass in the right larynx region. There is destruction of the right side of the thyroid cartilage. It was displacement of the airway at the level of the legs throughout the left. Patient wanted to leave the hospital traveled to [place] and his plan was to seek treatment in the [facility]. However patient became more more dyspneic and was brought to the hospital on . He was seen by melting operator and was in the ICU.CT neck reveals markedly narrowed upper airway. Complicating features include full anticoagulation with warfarin and plavix antiplatelet therapy. 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 Below the cancer and above the innominate artery is a window suitable for emergency percutaneous tracheostomy once coagulopathy is reversed. Eventually bleeding subsided, and the patient underwent surgery for trach for airway protection, 02/23/2017. Patient also has a PEG tube placement subsequently as well. Patient was transferred out of the ICU and on the Hospitalist service 02/24/2017. Patient seen by oncology 02/25/2017, and at that time oncologist note that patient is in the difficult situation. Patient has multiple comorbidities including chronic kidney disease, history of coronary artery disease. Patient upon oncologist evaluation was quite deconditioned. He is not candidate for surgery, or chemotherapy. Any salvage chemotherapy will be given only if performance status improves. Oncologist noted that he would discuss with radiation oncology about any palliative radiation treatment although he states "I am less optimistic as the mass involved the same field where radiation was given previously." Oncology recommends focus on nutrition and physical therapy. Other course of complication included pt Halicated and patient pulled out his T- piece. Pt was evaluated by Dr. Corona due to subtotal occulsion of the right internal carotid arter (seen by vasclar surgeon and not a candidate for invasive procedure). There were patient has questionable altered mental status. Psychiatry was consulted to evaluate the patient capacity to make medical decision. Course of hospitalization also complicated by Klebsiella pneumonia in which he was treated with Ceftriaxone and later by [facility]. Pt later went to rehabilitation on 03/03/3017. Palliative Care was consulted to review goals of care during his rehabilitation. At the time of family meeting. Goals of care were established. They have the understanding that pt's cancer is terminal, and that treatment offered is palliative, not curative. Their hope is that pt's functional status improve with rehab, and he will be able to undergo palliative treatment/immunglobulin therapy etc. Code status was reviewed and they maintained Full Code. Pt eventually was discharged from rehab Pt returned to the ER 03/22 due to pt coughing trach out. It was quickly replaced, and pt discharged. Pt returned 03/25/2017 due to respiratory distress. Pt was placed on 35% trach collar. Pt has leukocytosis and pt started on abx. Sputum culture came back with MRSA pneumonia. Pt also complicated with GI bleed, with anemia. GI has been consulted. Pt also has DVT on right posterior tibial veins and occlusive thrombus in the right cephalic vein. Palliative care consulted again to review goals of care. I spoke with pt, who is in restraints as he tried to pull out iv again. Pt was not at bedside. Pt himself seems to recognize me but like last time have difficulty speaking. He mouth words. I told him I just don't think functionally he would rebound to get any further treatment and to reconsider hospice. He was tearful. I also spoke with pt's daughters health care surrogate daughters: Antonietta and Triny. Understandably family is struggling with pt's decline. Antonietta had many questions in which I answered. I reinforce, that pt can get antibiotics, depending on the type on hospice. In terms of anticoagulation, she wish for pt to be place back on coumadine, but I did say, given pt's GI bleed and anemia, that may be difficult. She asked "Can they just cauterize it and that place him back on?" Again reviewed pt is in a tough situation in terms of balancing hemorrhage and anticoagulation. Family still struggle. Goals of care is as follows: They wish pt to have medical care maximize, specifically pneumonia treated, and have pt anticoagulated, GI bleed stop. After that they will again consider hospice. They have spoken to hospice in the past and have toured the care centers. Function/Cognitive Trajectory He is deconditioned, with dyspnea, bouts of confusion at times, hemorrhage, infection. functional status is poor. Review of Systems ROS Limitations: Clinical Condition Constitutional: COMPLAINS OF: Fatigue Respiratory: COMPLAINS OF: Shortness of breath Gastrointestinal: COMPLAINS OF: Difficulty Swallowing Past Family Social History Coded Allergies: HMG-CoA Reductase Inhibitors (Verified Allergy, Severe, 03/22/17) Niacin (Verified Allergy, Severe, 03/22/17) CAUSES HIM TO FEEL HOT Oily Fish (Verified Allergy, Intermediate, Diarrhea, 03/22/17) *MDRO Multi-Drug Resistant Organism (Verified Adverse Reaction, Unknown, MRSA, 03/27/17) MRSA screen (nares) POSITIVE - 03/26/17 MRSA (sputum) 03/25/17 Past Medical History Laryngeal cancer, diabetes mellitus 2 chronic kidney disease stage IV, hyperlipidemia, history of CT 2012, history of PCI stent placement 2012, PAD, hypertension, GERD, aspiration pneumonia, laryngeal tumor recurrence Past Surgical History Status post tracheostomy, for oral bypass, PCI stent placement, G-tube placement, and surgery for laryngeal cancer Reported Medications Levsin (Hyoscyamine Sulfate) 0.125 Mg Tab 0.125 Mg G-TUBE BID Santyl (Collagenase) 250 Unit/Gm Oin 1 Applic TOPICAL DAILY 30 Days Calcitriol Liq (Calcitriol) 1 Mcg/Ml Soln 0.25 Mcg PEG DAILY 30 Days Xanax (Alprazolam) 0.25 Mg Tab 0.25 Mg G-TUBE Q8HR PRN Duoneb (Ipratropium-Albuterol Neb) 0.5-2.5 Mg/3 Ml Neb 1 Nebule INH Q4HR NEB PRN Gabapentin Liq (Gabapentin) 250 Mg/5 Ml Soln 250 Mg G-TUBE BID Sodium Bicarbonate 325 Mg Tab 325 Mg G-TUBE BIDPC Cilostazol 50 Mg Tab 50 Mg G-TUBE BID Claritin Liq (Loratadine) 5 Mg/5 Ml Liq 10 Mg G-TUBE DAILY 30 Days Plavix (Clopidogrel Bisulfate) 75 Mg Tab 75 Mg G-TUBE DAILY Zofran Liq (Ondansetron HCl) 4 Mg/5 Ml Soln 4 Mg G-TUBE Q4HR PRN Miralax Powder (Polyethylene Glycol 3350 Powder) 17 Gm Powd 17 Gm G-TUBE DAILY PRN Mix and dissolve one measuring cap-ful (17 grams) in water or juice. Metoprolol Tartrate 50 Mg Tab 50 Mg G-TUBE BID Current Medications Medications (Trade) Dose Ordered Sig/Alea Route Start Time Stop Time Status Last Admin (NS 1000 ml Inj) 1,000 ml @ 42 mls/hr [id number] IV 03/25/17 14:31 03/25/17 20:42 (NS Flush) 2 ml UNSCH PRN IV FLUSH 03/25/17 14:45 (NS Flush) 2 ml BID IV FLUSH 03/25/17 21:00 03/27/17 21:00 (Tylenol) 650 mg Q6H PRN PO 03/25/17 14:45 03/28/17 04:48 (Heparin Inj) 5,000 units Q12H SQ 03/25/17 16:00 Hold 03/27/17 15:07 Miscellaneous Information 1 Q361D XX 03/25/17 14:45 (Chlorhexidine 2% Cloth) 3 pack Taper DAILY@04 TOP 03/26/17 04:00 03/22/18 03:59 03/27/17 02:59 (Chlorhexidine 2% Cloth) 3 pack UNSCH PRN TOP 03/25/17 14:45 (Genoveva-Colace) 1 tab BID PO 03/25/17 21:00 03/28/17 08:32 (Milk Of Magnesia Liq) 30 ml Q12H PRN PO 03/25/17 14:45 (Senokot) 17.2 mg Q12H PRN PO 03/25/17 14:45 (Dulcolax Supp) 10 mg DAILY PRN RECTAL 03/25/17 14:45 (Lactulose Liq) 30 ml DAILY PRN PO 03/25/17 14:45 (Peridex 0.12% Liq) 15 ml BID@08,20 MT 03/25/17 20:00 03/27/17 09:38 (D50w (Vial) Inj) 50 ml UNSCH PRN IV 03/25/17 15:00 Glucagon 1 mg 1 mg UNSCH PRN OTHER 03/25/17 15:00 Piperacillin Sod/ Tazobactam Sod 50 ml @ 100 mls/hr Q6H IV 03/25/17 17:00 03/28/17 13:37 (Zithromax Inj/ NS 250 ml Inj) 250 ml @ 250 mls/hr Q24H IV 03/25/17 15:00 03/27/17 17:44 (Pletal) 50 mg BID G-TUBE 03/26/17 09:00 03/28/17 10:28 (Plavix) 75 mg DAILY G-TUBE 03/26/17 09:00 Hold 03/27/17 09:38 (Levsin) 0.125 mg BID G-TUBE 03/26/17 09:00 03/28/17 08:32 (Lopressor) 50 mg BID G-TUBE 03/26/17 09:00 03/28/17 08:32 (Xanax) 0.25 mg Q8H PRN PO 03/26/17 17:00 03/28/17 08:32 Haloperidol Lactate 2 mg 2 mg Q4H PRN IV 03/27/17 16:30 (Protonix Inj/NS Inj) 100 ml @ 10 mls/hr CONTINUOUS IV 03/27/17 22:00 03/27/17 22:30 (York 10-325 Mg) 1 tab Q4H PRN PO 03/27/17 23:15 03/28/17 10:28 Family History CAD Polycystic kidney diseas Substance Use Tobacco:2ppd quit 2005 and smoke since 10 years of age Alcohol:none Prescription med abuse:none Illicits:none 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 Antonietta Yuan (daughter) is primary health care surrogate. She is a nurse working in [employer]. Triny Fortune (daughter), works in [place]. Spiritual/Cultural Factors [facility]. Health Care Surrogate: Copy in medical record Physical Exam Vital Signs Date Time Temp Pulse Resp B/P Pulse Ox O2 Delivery O2 Flow Rate FiO2 03/28/17 12:56 97.4 89 20 142/65 97 03/28/17 11:04 Aerosol Mask 5.00 28 03/28/17 08:29 97.4 105 20 194/90 100 03/28/17 08:25 97 Trach Collar 5.00 03/28/17 05:46 98.1 98 18 136/63 99 03/28/17 01:02 98.3 93 18 116/60 98 03/27/17 21:18 98 Trach Collar 6.00 28 03/27/17 21:05 98.0 109 18 128/72 98 03/27/17 18:04 95.5 99 22 135/53 98 03/27/17 16:00 80 03/27/17 16:00 98.0 86 18 118/61 96 03/27/17 03/28/17 19:00 07:00 Intake Total 628 ml 1079 ml Output Total 350 ml Balance 628 ml 729 ml Intake IV Total 540 ml 510 ml Tube Feeding 88 ml 119 ml Packed Cells 250 ml Other 200 ml Output Urine Total 350 ml # Voids 3 # Bowel Movements 1 4 Exam CONSTITUTIONAL/GENERAL: This is an adequately nourished patient, in no apparent distress. TUBES/LINES/DRAINS: SKIN: No jaundice, rashes, or lesions. Ecchymoses on upper extremities. No wounds seen anteriorly. Skin temperature appropriate. Not diaphoretic. HEAD: Atraumatic. Normocephalic. EYES: Pupils equal and round and reactive. Extraocular motions intact. No scleral icterus. No injection or drainage. Fundi not examined. ENT: Hearing grossly normal. Nose without bleeding or purulent drainage. Throat without visible erythema, exudates, masses, or lesions. NECK: Trachea midline. Supple, nontender. No palpable thyroid enlargement or nodularity. CARDIOVASCULAR: Regular rate and rhythm without murmurs, gallops, or rubs. No JVD. Peripheral pulses symmetric. RESPIRATORY/CHEST: Symmetric, unlabored respirations. Clear to auscultation. Breath sounds equal bilaterally. No wheezes, rales, or rhonchi. GASTROINTESTINAL: Abdomen soft, non-tender, nondistended. No hepato-splenomegaly , or palpable masses. No guarding. Bowel sounds present. GENITOURINARY: Without palpable bladder distension. Arroyo catheter in place. MUSCULOSKELETAL: Extremities without clubbing, cyanosis, or edema. No joint tenderness or effusion noted. No calf tenderness. No mottling or clubbing. LYMPHATICS: No palpable cervical or supraclavicular adenopathy. NEUROLOGICAL: Awake and alert. Motor and sensory grossly within normal limits. Follows commands. Cognitively sharp. Moves all extremities. PSYCHIATRIC: No obvious anxiety/depression. no apparent hallucinations or other psychotic thought process. Diagnostic Tests Laboratory Laboratory Tests Test 03/25/17 03/25/17 03/26/17 03/27/17 18:00 20:30 04:40 04:17 Ammonia 17 MCMOL/L (11-32) Nasal Screen MRSA (PCR) MRSA DETECTED (NOT DETECT) White Blood Count 10.8 TH/MM3 8.7 TH/MM3 (4.0-11.0) (4.0-11.0) Red Blood Count 2.88 MIL/MM3 2.58 MIL/MM3 (4.50-5.90) (4.50-5.90) Hemoglobin 7.5 GM/DL 6.8 GM/DL (13.0-17.0) (13.0-17.0) Hematocrit 23.6 % 21.2 % (39.0-51.0) (39.0-51.0) Mean Corpuscular Volume 82.1 FL 82.1 FL (80.0-100.0) (80.0-100.0) Mean Corpuscular Hemoglobin 26.0 PG 26.3 PG (27.0-34.0) (27.0-34.0) Mean Corpuscular Hemoglobin 31.7 % 32.0 % Concent (32.0-36.0) (32.0-36.0) Red Cell Distribution Width 18.3 % 18.1 % (11.6-17.2) (11.6-17.2) Platelet Count 273 TH/MM3 257 TH/MM3 (150-450) (150-450) Mean Platelet Volume 8.8 FL 9.1 FL (7.0-11.0) (7.0-11.0) Neutrophils (%) (Auto) 80.2 % (16.0-70.0) Lymphocytes (%) (Auto) 7.2 % (9.0-44.0) Monocytes (%) (Auto) 11.8 % (0.0-8.0) Eosinophils (%) (Auto) 0.3 % (0.0-4.0) Basophils (%) (Auto) 0.5 % (0.0-2.0) Neutrophils # (Auto) 8.7 TH/MM3 (1.8-7.7) Lymphocytes # (Auto) 0.8 TH/MM3 (1.0-4.8) Monocytes # (Auto) 1.3 TH/MM3 (0-0.9) Eosinophils # (Auto) 0.0 TH/MM3 (0-0.4) Basophils # (Auto) 0.1 TH/MM3 (0-0.2) CBC Comment DIFF FINAL Differential Comment Sodium Level 137 MEQ/L 140 MEQ/L (136-145) (136-145) Potassium Level 4.4 MEQ/L 4.4 MEQ/L (3.5-5.1) (3.5-5.1) Chloride Level 104 MEQ/L 108 MEQ/L (98-107) (98-107) Carbon Dioxide Level 22.4 MEQ/L 22.7 MEQ/L (21.0-32.0) (21.0-32.0) Anion Gap 11 MEQ/L (5-15) 9 MEQ/L (5-15) Blood Urea Nitrogen 38 MG/DL (7-18) 37 MG/DL (7-18) Creatinine 2.13 MG/DL 2.17 MG/DL (0.60-1.30) (0.60-1.30) Estimat Glomerular Filtration 31 ML/MIN (>89) 30 ML/MIN (>89) Rate Random Glucose 128 MG/DL 123 MG/DL (74-106) (74-106) Calcium Level 8.0 MG/DL 7.9 MG/DL (8.5-10.1) (8.5-10.1) Phosphorus Level 3.3 MG/DL 3.1 MG/DL (2.5-4.9) (2.5-4.9) Magnesium Level 2.1 MG/DL 2.3 MG/DL (1.5-2.5) (1.5-2.5) Total Bilirubin 0.7 MG/DL (0.2-1.0) Aspartate Amino Transf 12 U/L (15-37) (AST/SGOT) Alanine Aminotransferase 11 U/L (12-78) (ALT/SGPT) Alkaline Phosphatase 130 U/L (45-117) B-Type Natriuretic Peptide 1077 PG/ML (0-100) Total Protein 5.9 GM/DL (6.4-8.2) Albumin 1.9 GM/DL (3.4-5.0) Test 03/27/17 03/28/17 08:24 04:55 Blood Type O POSITIVE Antibody Screen NEGATIVE Crossmatch Leukocyte-Reduced Red Blood Cells Blood Bank Comment White Blood Count 10.5 TH/MM3 (4.0-11.0) Red Blood Count 3.79 MIL/MM3 (4.50-5.90) Hemoglobin 10.3 GM/DL (13.0-17.0) Hematocrit 31.2 % (39.0-51.0) Mean Corpuscular Volume 82.2 FL (80.0-100.0) Mean Corpuscular Hemoglobin 27.0 PG (27.0-34.0) Mean Corpuscular Hemoglobin 32.9 % Concent (32.0-36.0) Red Cell Distribution Width 17.1 % (11.6-17.2) Platelet Count 309 TH/MM3 (150-450) Mean Platelet Volume 8.7 FL (7.0-11.0) Neutrophils (%) (Auto) 81.1 % (16.0-70.0) Lymphocytes (%) (Auto) 7.7 % (9.0-44.0) Monocytes (%) (Auto) 8.8 % (0.0-8.0) Eosinophils (%) (Auto) 1.6 % (0.0-4.0) Basophils (%) (Auto) 0.8 % (0.0-2.0) Neutrophils # (Auto) 8.5 TH/MM3 (1.8-7.7) Lymphocytes # (Auto) 0.8 TH/MM3 (1.0-4.8) Monocytes # (Auto) 0.9 TH/MM3 (0-0.9) Eosinophils # (Auto) 0.2 TH/MM3 (0-0.4) Basophils # (Auto) 0.1 TH/MM3 (0-0.2) CBC Comment DIFF FINAL Differential Comment Prothrombin Time 15.8 SEC (9.8-11.6) Prothromb Time International 1.4 RATIO Ratio Activated Partial 41.2 SEC Thromboplast Time (24.3-30.1) Sodium Level 139 MEQ/L (136-145) Potassium Level 3.8 MEQ/L (3.5-5.1) Chloride Level 108 MEQ/L (98-107) Carbon Dioxide Level 19.5 MEQ/L (21.0-32.0) Anion Gap 12 MEQ/L (5-15) Blood Urea Nitrogen 37 MG/DL (7-18) Creatinine 2.10 MG/DL (0.60-1.30) Estimat Glomerular Filtration 32 ML/MIN (>89) Rate Random Glucose 123 MG/DL (74-106) Calcium Level 8.2 MG/DL (8.5-10.1) Phosphorus Level 3.1 MG/DL (2.5-4.9) Magnesium Level 2.2 MG/DL (1.5-2.5) Total Bilirubin 0.7 MG/DL (0.2-1.0) Aspartate Amino Transf 16 U/L (15-37) (AST/SGOT) Alanine Aminotransferase 13 U/L (12-78) (ALT/SGPT) Alkaline Phosphatase 156 U/L (45-117) Total Protein 6.3 GM/DL (6.4-8.2) Albumin 1.9 GM/DL (3.4-5.0) Result Diagram: 03/28/17 0455 03/28/17 0455 Microbiology MRSA on sputum culture. Imaging Last Impressions Chest X-Ray 03/26/17 0600 Signed Impressions: Service Date/Time: Sunday, March 26, 2017 03:15 - CONCLUSION: Stable chest x-ray with left basilar opacity representing atelectasis or airspace consolidation. Tomi Denise MD Upper Extremity Ultrasound 03/25/17 0000 Signed Impressions: Service Date/Time: Saturday, March 25, 2017 16:31 - CONCLUSION: 1. Occlusive thrombus in the right cephalic vein. 2. No deep venous thrombosis left arm. Dakota Suarez MD Lung Scan-VQ Nuclear Medicine 03/25/17 0000 Signed Impressions: Service Date/Time: Saturday, March 25, 2017 13:39 - CONCLUSION: No scintigraphic findings of pulmonary embolus. Jacky Guadarrama MD Lower Extremity Ultrasound 03/25/17 Signed Impressions: Service Date/Time: Saturday, March 25, 2017 16:03 - CONCLUSION: Probable deep venous thrombosis within the right posterior tibial veins. Bret Calderón MD Head CT 03/25/17 Signed Impressions: Service Date/Time: Saturday, March 25, 2017 11:52 - CONCLUSION: 1. Moderate cerebral atrophy. 2. Old lacunar infarcts within the bilateral basal ganglia. 3. No acute infarct, acute hemorrhage, mass effect or extra axial fluid collections. Bret Calderón MD Patient/Family Conference Family Conference Time (mins): 45 Family Conference Location: Bedside, Telephone Issues Discussed: * Palliative care role, purpose, approach * Additional medical, psychosocial, and spiritual history * Patients general health, functional status, and cognitive changes in the months leading up to the current hospitalization * Patient/family understanding of the current medical problems * Patient/family understanding of prognosis * Patients goals of care as best understood from advance directives and/or conversations and/or values * Current medical treatment options and benefits/burdens of those options * Likely scenarios comparing ongoing aggressive care with a transition to comfort measures only * Questions answered to the best of my ability * Palliative care contact information provided Assessment and Plan Disease Oriented Problem List: (1) Head and neck malignancy (2) COPD (chronic obstructive pulmonary disease) (3) Dysphagia (4) Failure to thrive in adult (5) ROSALINO (acute kidney injury) (6) PVD (peripheral vascular disease) (7) DVT (deep venous thrombosis) (8) Oropharyngeal cancer (9) Anemia (10) GI bleed (11) Pneumonia (12) CKD (chronic kidney disease), stage IV (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 Not a cadidiate for chemo or surgery. May be a candidate for radiation, although oncology had previously stated less optomistic as the mass involves the same filed where radiation was given previously. Pt also have underlying CAD, CKD, occluded right carotid artery, deconditioning, manutrition, pneumonia, and confusion at times.. He is s/p peg and trach. Has DVT, GI bleed. Would be appropriate fo hospice if goals of care were to transition to comfort measures only. Code Status: Full Code Plan == capacity- flutuates, but may be clearing up. Suggest all decisions be joint decision in medical decision making. == Code: full. == dypnea/ weakness- cancer burden- no new med rec. == goals of care.I spoke with pt, who is in restraints as he tried to pull out iv again. Pt was not at bedside. Pt himself seems to recognize me but like last time have difficulty speaking. He mouth words. I told him I just don 't think functionally he would rebound to get any further treatment and to reconsider hospice. He was tearful. I also spoke with pt's daughters health care surrogate daughters: Antonietta and Triny. Understandably family is struggling with pt's decline. Antonietta had many questions in which I answered. I reinforce, that pt can get antibiotics, depending on the type on hospice. In terms of anticoagulation, she wish for pt to be place back on coumadine, but I did say, given pt's GI bleed and anemia, that may be difficult. She asked "Can they just cauterize it and that place him back on?" Again reviewed pt is in a tough situation in terms of balancing hemorrhage and anticoagulation. Family still struggle. Goals of care is as follows: They wish pt to have medical care maximize, specifically pneumonia treated, and have pt anticoagulated, GI bleed stop. After that they will again consider hospice. They have spoken to hospice in the past and have toured the care centers. Family understandably struggling with pt's decline. == palliative care will follow on Friday. Likely pt will undergo endoscopy. d/w attending physician. Thank you for the opportunity to participate in the care of Mr. Iverson. Attestation To help prompt me to consider important information that might be impacting today's encounter and assessment, information from prior notes written by myself or my colleagues may have been "brought forward" into today's note. My signature on this note, however, is an attestation that I personally performed the exam, history, and/or decision-making noted today, and, unless otherwise indicated, the interactions with patient, family, and staff as well as the review of records all occurred today. I also attest that the listed assessment and stated plan reflect my best clinical judgment today based on the combination of historical information, prior notes, and today's exam/ interactions. When time spent is documented, it refers only to time spent today by the signer, or if indicated, combined time spent today by collaborating physician/nurse practitioner. Jay Mae MD Mar 28, 2017 15:32
[2017-03-29] VITALS (8 sets, daily range): BP systolic 139–174; BP diastolic 65–85; PULSE 104–128; RESP 20–22; TEMP 97.5–98.8; O2SAT 94–98
[2017-03-29] MEDS: VANCOMYCIN INJ 1,250 MG in SODIUM CHLOR 0.9% 250 ML INJ 250 ML IV SCH ×2 (01:51→16:31)
[2017-03-29] MEDS: HALOPERIDOL LACTATE 5 MG/ML AMP IV PRN ×2 (02:51→09:36)
[2017-03-29] MEDS: CHLORHEXIDINE GLUCONATE 2 % 1 PACK (2 CLOTHS) TOP SCH (04:00)
[2017-03-29] MEDS: RESP: ALBUTEROL 2.5 MG/IPRATROPIUM 0.5 MG NEB (SCH) INH ×2 (04:47→10:44)
[2017-03-29] MEDS: PIPERACIL-TAZO 3.375 GM PREMIX 50 ML IV SCH ×4 (05:11→22:17)
[2017-03-29] MEDS: ALPRAZolam 0.25 MG TAB PO PRN ×2 (05:11→16:47)
[2017-03-29] MEDS: INSULIN ASPART SUPPLEMENTAL SCALE SQ SCH ×4 (07:00→20:30)
[2017-03-29] MEDS: ACETAMINOPHEN/HYDROcodone 325 MG/10 MG TAB PO PRN ×2 (07:08→22:16)
[2017-03-29] MEDS: HYOSCYAMINE 0.125 MG TAB G-TUBE SCH ×2 (09:35→22:17)
[2017-03-29] MEDS: CILOSTAZOL 50 MG TAB G-TUBE SCH ×2 (09:35→22:17)
[2017-03-29] MEDS: METOPROLOL TARTRATE 50 MG TAB G-TUBE SCH ×2 (09:35→22:16)
[2017-03-29] MEDS: SODIUM CHLORIDE 0.9% FLUSH 10 ML FLUSH IV FLUSH SCH ×2 (09:36→21:00)
[2017-03-29] MEDS: CHLORHEXIDINE 0.12% (ORAL KIT) 15 ML CUP MT SCH ×2 (09:36→20:00)
[2017-03-29 11:38] LABS: INTERNATIONAL NORMALIZED RATIO 1.5 RATIO; PROTHROMBIN TIME - PATIENT 16.7 SEC (9.8-11.6)
[2017-03-29 11:39] LABS: AUTOMATED NEUTROPHIL # 13.7 TH/MM3 (1.8-7.7); BASOPHIL # 0.3 TH/MM3 (0-0.2); BASOPHIL % 1.8 % (0.0-2.0); EOSINOPHIL # 0.3 TH/MM3 (0-0.4); EOSINOPHIL % 1.6 % (0.0-4.0); HEMATOCRIT 33.6 % (39.0-51.0); LYMPH % 3.2 % (9.0-44.0); LYMPHOCYTE # 0.5 TH/MM3 (1.0-4.8); MEAN CELL VOLUME 82.2 FL (80.0-100.0); MEAN CORPUSCULAR HEMOGLOBIN 27.1 PG (27.0-34.0); MONO % 7.1 % (0.0-8.0); NEUT % 86.3 % (16.0-70.0); PLATELET COUNT 356 TH/MM3 (150-450); RED BLOOD COUNT 4.09 MIL/MM3 (4.50-5.90); RED CELL DISTRIBUTION WIDTH 17.2 % (11.6-17.2); WHITE BLOOD COUNT 15.8 TH/MM3 (4.0-11.0)
[2017-03-29 11:42] LABS: HEMO FLAGS AUTO DIFF
[2017-03-29 11:54] LABS: POTASSIUM 3.6 MEQ/L (3.5-5.1)
--- NOTE | 2017-03-29 12:12 | HHI.PR ---
Subjective Remarks Follow up pneumonia, GI bleed. The patient states that he wants to "get out of here". He is confused. He has been agitated and pulled out his IV. He is in soft restraints at this time. Objective Vitals Vital Signs Date Time Temp Pulse Resp B/P Pulse Ox O2 Delivery O2 Flow Rate FiO2 03/29/17 11:44 98.5 108 20 141/65 97 03/29/17 11:00 96 Trach Collar 03/29/17 08:10 97.9 128 22 174/81 97 03/29/17 04:58 98.8 104 21 139/75 94 03/29/17 02:54 98.8 104 20 146/76 95 03/28/17 21:56 98.7 89 20 135/75 100 03/28/17 20:40 99 Trach Collar 6.00 03/28/17 15:58 97.3 92 20 136/72 98 03/28/17 12:56 97.4 89 20 142/65 97 I/O 03/28/17 03/28/17 03/28/17 03/29/17 03/29/17 03/29/17 07:00 15:00 23:00 07:00 15:00 23:00 Intake Total 538 ml 1020 ml Output Total 350 ml 10.0 ml Balance 188 ml -10.0 ml 1020 ml Intake IV Total 366 ml 800 ml Tube Feeding 72 ml 120 ml Other 100 ml 100 ml Output Urine Total 350 ml Tube Feeding Residual Discard 10.0 ml # Voids 6 6 # Bowel Movements 4 1 3 1 Result Diagram: 03/29/17 1103 03/29/17 1103 Imaging Last Impressions Chest X-Ray 03/26/17 0600 Signed Impressions: Service Date/Time: Sunday, March 26, 2017 03:15 - CONCLUSION: Stable chest x-ray with left basilar opacity representing atelectasis or airspace consolidation. Tomi Denise MD Upper Extremity Ultrasound 03/25/17 0000 Signed Impressions: Service Date/Time: Saturday, March 25, 2017 16:31 - CONCLUSION: 1. Occlusive thrombus in the right cephalic vein. 2. No deep venous thrombosis left arm. Dakota Suarez MD Lung Scan- Nuclear Medicine 03/25/17 0000 Signed Impressions: Service Date/Time: Saturday, March 25, 2017 13:39 - CONCLUSION: No scintigraphic findings of pulmonary embolus. Jacky Guadarrama MD Lower Extremity Ultrasound 03/25/17 0000 Signed Impressions: Service Date/Time: Saturday, March 25, 2017 16:03 - CONCLUSION: Probable deep venous thrombosis within the right posterior tibial veins. Bret Calderón MD Head CT 03/25/17 0000 Signed Impressions: Service Date/Time: Saturday, March 25, 2017 11:52 - CONCLUSION: 1. Moderate cerebral atrophy. 2. Old lacunar infarcts within the bilateral basal ganglia. 3. No acute infarct, acute hemorrhage, mass effect or extra axial fluid collections. Bret Calderón MD Objective Remarks General: Chronically ill appearing elderly male in no acute distress. Tracheostomy. In soft ankle and wrist restraints. Heart: Regular rate and rhythm. No murmur. Lungs: Scattered rhonchi. Breathing is nonlabored. Abdomen: Soft, nontender, nondistended. Extremities: No lower extremity edema. Psych: Alert, follows commands, answers questions. Displays confusion. 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 Pneumonia, MRSA, ?aspiration: Continue antibiotics (vancomycin, Zosyn), bronchodilators, supplemental oxygen. 2. Severe sepsis secondary to pneumonia: Sepsis resolved. 3. Agitation: Continue Seroquel. Remains confused and intermittently agitated. Restraints as needed. Haldol as needed. 4. Coronary artery disease: Currently asymptomatic. Continue home medications. 5. GI bleed: Appreciate GI recommendations. Planning for EGD on Friday. Continue Protonix drip. 6. Head and neck cancer: Appreciate oncology recommendations. Tube feeds per PEG tube. Tracheostomy in place. 7. Chronic kidney disease stage IV: Stable. 8. Anemia: Secondary to GI bleed. Hemoglobin improved following transfusion. 9. DVT: Plavix and heparin are on hold secondary to GI bleed. Continue cilostazol. 10. Poor prognosis: Appreciate palliative care recommendations. Patient would be hospice appropriate, however patient and his family at this time desire aggressive care. Problem Qualifiers (1) DVT (deep venous thrombosis): Qualified Code: I82.441 - Deep vein thrombosis (DVT) of tibial vein of right lower extremity, unspecified chronicity Kermit Mendoza MD Mar 29, 2017 12:11
[2017-03-29 12:43] LABS: BANDS 9 % (0-6); MYELOCYTES 4 % (0-0); NEUTROPHIL # MANUAL DIFF 13.4 TH/MM3 (1.8-7.7); POLYS (SEG NEUTROPHILS) 72 % (16-70); WBC DIFF SAMPLE 100
[2017-03-29 12:44] LABS: OVALOCYTES 1+ (NORMAL); PLATELET ESTIMATE SMEAR NORMAL (NORMAL); PLATELET MORPHOLOGY NORMAL (NORMAL); SCAN/DIFF FINAL DIFF MANUAL
[2017-03-29] MEDS: SODIUM CHLOR 0.9% 1000 ML INJ 1,000 ML IV SCH (13:58)
[2017-03-29] MEDS: AZITHROMYCIN INJ 500 MG in SODIUM CHLOR 0.9% 250 ML INJ 250 ML IV SCH (16:31)
--- NOTE | 2017-03-29 21:09 | HHI.GIFU ---
Subjective Remarks Comfortable in bed no new complaints no bleeding Objective Vitals I&O Vital Signs Date Time Temp Pulse Resp B/P Pulse Ox O2 Delivery O2 Flow Rate FiO2 03/29/17 20:27 98 T-piece 6.00 35 03/29/17 16:24 98.0 120 20 169/85 98 03/29/17 11:44 98.5 108 20 141/65 97 03/29/17 11:00 96 Trach Collar 28 03/29/17 08:10 97.9 128 22 174/81 97 03/29/17 04:58 98.8 104 21 139/75 94 03/29/17 02:54 98.8 104 20 146/76 95 03/28/17 21:56 98.7 89 20 135/75 100 I/O 03/28/17 03/28/17 03/28/17 03/29/17 03/29/17 03/29/17 07:00 15:00 23:00 07:00 15:00 23:00 Intake Total 538 ml 1020 ml Output Total 350 ml 10.0 ml 100 ml Balance 188 ml -10.0 ml 1020 ml -100 ml Intake IV Total 366 ml 800 ml Tube Feeding 72 ml 120 ml Other 100 ml 100 ml Output Urine Total 350 ml 100 ml Tube Feeding Residual Discard 10.0 ml # Voids 6 6 2 # Bowel Movements 4 1 3 1 1 1 Laboratory Laboratory Tests Test 03/29/17 11:03 White Blood Count 15.8 Red Blood Count 4.09 Hemoglobin 11.1 Hematocrit 33.6 Mean Corpuscular Volume 82.2 Mean Corpuscular Hemoglobin 27.1 Mean Corpuscular Hemoglobin 33.0 Concent Red Cell Distribution Width 17.2 Platelet Count 356 Mean Platelet Volume 9.3 Neutrophils (%) (Auto) 86.3 Lymphocytes (%) (Auto) 3.2 Monocytes (%) (Auto) 7.1 Eosinophils (%) (Auto) 1.6 Basophils (%) (Auto) 1.8 Neutrophils # (Auto) 13.7 Lymphocytes # (Auto) 0.5 Monocytes # (Auto) 1.1 Eosinophils # (Auto) 0.3 Basophils # (Auto) 0.3 CBC Comment AUTO DIFF Differential Total Cells 100 Counted Neutrophils % (Manual) 72 Band Neutrophils % 9 Lymphocytes % 8 Monocytes % 7 Neutrophils # (Manual) 13.4 Myelocytes 4 Differential Comment FINAL DIFF MANUAL Platelet Estimate NORMAL Platelet Morphology Comment NORMAL Polychromasia 2.0 Ovalocytes 1+ Prothrombin Time 16.7 Prothromb Time International 1.5 Ratio Sodium Level 142 Potassium Level 3.6 Chloride Level 109 Carbon Dioxide Level 21.0 Anion Gap 12 Blood Urea Nitrogen 29 Creatinine 2.11 Estimat Glomerular Filtration 31 Rate Random Glucose 125 Calcium Level 8.6 Date/Time Procedure Status Source Growth 03/25/17 11:10 Urine Culture - Final Complete Urine Catheterized Urine NO GROWTH IN 48 HOURS. 03/25/17 10:30 Gram Stain - Final Complete Sputum Endotracheal 03/25/17 10:30 Sputum Culture - Final Complete S. Aureus Mrsa 03/25/17 10:10 Aerobic Blood Culture - Preliminary Resulted Blood Peripheral NO GROWTH IN 4 DAYS 03/25/17 10:10 Anaerobic Blood Culture - Preliminary Resulted Blood Peripheral NO GROWTH IN 4 DAYS Physical Exam HEENT: normocephalic; atraumatic; no jaundice. Throat is clear. NECK: Neck is supple, CHEST: Chest is clear to auscultation and percussion. CARDIAC: Regular rate and rhythm with no murmur gallop or rubs. ABDOMEN: Soft, nondistended, nontender; no hepatosplenomegaly; bowel sounds are present in all four quadrants. EXTREMITIES: No clubbing, cyanosis, or edema. Assessment and Plan Plan - GI bleed/ melena, drop in hgb- Gi have been consulted for drop in hgb and reported black stools. yesterday hgb 6.8 with good response to 2 units of blood, today 10.3. in the room and is helping with HPI. Yesterday, patient started having soft stools about 6 times, these were dark black in the beginning but turned light at the end, he is normally have constipation. He also has been complaining of lower abd pain. He had EGD/PEG in November of 2016 and that showed mild gastritis, bx was benign. He is on Plavix, but this is on hold now. He had colonoscopy years ago. Denies hematemesis, or hematochezia. PPI, hemodynamically stable, no black stools today - Possible aspiration [id number] on abx per attending - history significant for Laryngeal cancer,Status post tracheostomy, S/p PEG, diabetes mellitus 2 chronic kidney disease stage IV, hyperlipidemia, history of [place] 2012, history of PCI stent placement 2013, PAD , hypertension, Plan: - Plan for EGD on Friday, unless actively bleeding - Obtain consents - cont. ppi - Monitor hh - Transfuse as needed - Notify GI for active bleed - Cont. to hold Plavix - Supportive care Ti Welch MD Mar 29, 2017 21:09
[2017-03-30] VITALS (11 sets, daily range): BP systolic 139–164; BP diastolic 71–92; PULSE 96–120; RESP 18–22; TEMP 97.2–99.3; O2SAT 96–100
[2017-03-30] MEDS: HALOPERIDOL LACTATE 5 MG/ML AMP IV PRN ×3 (00:32→21:03)
[2017-03-30] MEDS: CHLORHEXIDINE GLUCONATE 2 % 1 PACK (2 CLOTHS) TOP SCH (03:04)
[2017-03-30] MEDS: PIPERACIL-TAZO 3.375 GM PREMIX 50 ML IV SCH ×4 (05:18→22:49)
[2017-03-30] MEDS: INSULIN ASPART SUPPLEMENTAL SCALE SQ SCH ×4 (06:20→21:20)
[2017-03-30] MEDS: CHLORHEXIDINE 0.12% (ORAL KIT) 15 ML CUP MT SCH ×2 (08:56→21:04)
[2017-03-30] MEDS: ALPRAZolam 0.25 MG TAB PO PRN (08:56)
[2017-03-30] MEDS: CILOSTAZOL 50 MG TAB G-TUBE SCH ×2 (08:56→21:02)
[2017-03-30] MEDS: SODIUM CHLORIDE 0.9% FLUSH 10 ML FLUSH IV FLUSH SCH ×2 (08:56→21:04)
[2017-03-30] MEDS: HYOSCYAMINE 0.125 MG TAB G-TUBE SCH ×2 (08:56→21:03)
[2017-03-30] MEDS: METOPROLOL TARTRATE 50 MG TAB G-TUBE SCH ×2 (08:56→21:03)
--- NOTE | 2017-03-30 10:33 | HHI.PR ---
Subjective Remarks Follow up pneumonia, GI bleed, DVT. Patient reportedly fell this morning. He denies any pain. Specifically denies hip/leg pain and back pain. He denies chest pain, dyspnea. Objective Vitals Vital Signs Date Time Temp Pulse Resp B/P Pulse Ox O2 Delivery O2 Flow Rate FiO2 03/30/17 10:27 97.7 96 22 145/79 99 03/30/17 09:42 97.6 97 20 160/79 99 03/30/17 09:05 97 21 03/30/17 08:32 98.4 114 20 145/79 97 03/30/17 04:00 97.2 116 22 150/79 100 03/30/17 00:47 97.6 118 21 164/90 97 03/29/17 21:11 97.5 121 20 151/76 98 03/29/17 20:27 98 T-piece 6.00 35 03/29/17 16:24 98.0 120 20 169/85 98 03/29/17 11:44 98.5 108 20 141/65 97 03/29/17 11:00 96 Trach Collar 28 I/O 03/29/17 03/29/17 03/29/17 03/30/17 03/30/17 03/30/17 07:00 15:00 23:00 07:00 15:00 23:00 Intake Total 1020 ml Output Total 100 ml Balance 1020 ml -100 ml Intake IV Total 800 ml Tube Feeding 120 ml Other 100 ml Output Urine Total 100 ml # Voids 6 2 # Bowel Movements 1 1 4 Result Diagram: 03/29/17 1103 03/29/17 1103 Imaging Last Impressions Chest X-Ray 03/26/17 0600 Signed Impressions: Service Date/Time: Sunday, March 26, 2017 03:15 - CONCLUSION: Stable chest x-ray with left basilar opacity representing atelectasis or airspace consolidation. Tomi Denise MD Upper Extremity Ultrasound 03/25/17 0000 Signed Impressions: Service Date/Time: Saturday, March 25, 2017 16:31 - CONCLUSION: 1. Occlusive thrombus in the right cephalic vein. 2. No deep venous thrombosis left arm. Dakota Suarez MD Lung Scan- Nuclear Medicine 03/25/17 0000 Signed Impressions: Service Date/Time: Saturday, March 25, 2017 13:39 - CONCLUSION: No scintigraphic findings of pulmonary embolus. Jacky Guadarrama MD Lower Extremity Ultrasound 03/25/17 0000 Signed Impressions: Service Date/Time: Saturday, March 25, 2017 16:03 - CONCLUSION: Probable deep venous thrombosis within the right posterior tibial veins. Bret Calderón MD Head CT 03/25/17 0000 Signed Impressions: Service Date/Time: Saturday, March 25, 2017 11:52 - CONCLUSION: 1. Moderate cerebral atrophy. 2. Old lacunar infarcts within the bilateral basal ganglia. 3. No acute infarct, acute hemorrhage, mass effect or extra axial fluid collections. Bret Calderón MD Objective Remarks General: Chronically ill appearing elderly male in no acute distress. Tracheostomy. In soft restraints. Heart: Regular rate and rhythm. No murmur. Lungs: Scattered rhonchi. Breathing is nonlabored. Abdomen: Soft, nontender, nondistended. Extremities: No lower extremity edema. Psych: Sleeping, but awakens and answers questions appropriately. 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 Pneumonia, MRSA, ?aspiration: Continue antibiotics (vancomycin, Zosyn), bronchodilators, supplemental oxygen. Recheck CXR. Consult pulmonology. 2. Severe sepsis secondary to pneumonia: Sepsis resolved. 3. Agitation: Continue Seroquel. Remains intermittently confused and agitated. Restraints as needed. Haldol as needed. 4. Coronary artery disease: Currently asymptomatic. Continue home medications. 5. GI bleed: Appreciate GI recommendations. Planning for EGD on Friday. Continue Protonix drip. 6. Head and neck cancer: Appreciate oncology recommendations. Tube feeds per PEG tube. Tracheostomy in place. 7. Chronic kidney disease stage IV: Stable. 8. Anemia: Secondary to GI bleed. Hemoglobin improved following transfusion. 9. DVT: Plavix and heparin are on hold secondary to GI bleed. Continue cilostazol. 10. Fall: Patient reportedly fell this morning. This was not witnessed and the patient states that he "slid to the floor". He denies pain, and exam shows no areas of tenderness or bruising. Will order imaging if patient reports discomfort. 11. Poor prognosis: Appreciate palliative care recommendations. Patient would be hospice appropriate, however patient and his family at this time desire aggressive care. Problem Qualifiers (1) DVT (deep venous thrombosis): Qualified Code: I82.441 - Deep vein thrombosis (DVT) of tibial vein of right lower extremity, unspecified chronicity Kermit Mendoza MD Mar 30, 2017 10:33
--- NOTE | 2017-03-30 11:18 | RADRPT ---
EXAM DATE/TIME: 03/30/2017 10:48 [facility] COMPARISON: CT THORAX W/O CONTRAST, December 07, 2016, 6:51. CHEST SINGLE AP, March 26, 2017, 3:15. INDICATIONS : Pneumonia MEDICAL HISTORY : Chronic obstructive pulmonary disease. Congestive heart failure. SURGICAL HISTORY : CABG. Coronary artery stent. tracheostomy, peg tube ENCOUNTER: Subsequent ACUITY: 1 week PAIN SCORE: Non-responsive. LOCATION: chest FINDINGS: Trach tube is in good position. Moderate interstitial edema is present progressing interval. The he art is enlarged. There is no pneumothorax. CONCLUSION: Increasing interstitial edema. Bobby Coto MD FACR on March 30, 2017 at 10:59 Board Certified Radiologist. This report was verified electronically.
[2017-03-30 11:33] LABS: AUTOMATED NEUTROPHIL # 15.1 TH/MM3 (1.8-7.7); BASOPHIL # 0.1 TH/MM3 (0-0.2); BASOPHIL % 0.3 % (0.0-2.0); HEMATOCRIT 32.1 % (39.0-51.0); LYMPHOCYTE # 0.7 TH/MM3 (1.0-4.8); MEAN CELL VOLUME 82.4 FL (80.0-100.0); MEAN CORPUSCULAR HEMOGLOBIN 27.4 PG (27.0-34.0); MEAN CORPUSCULAR HGB CONC 33.2 % (32.0-36.0); MONO % 7.1 % (0.0-8.0); NEUT % 88.6 % (16.0-70.0); PLATELET COUNT 353 TH/MM3 (150-450); RED CELL DISTRIBUTION WIDTH 17.2 % (11.6-17.2)
[2017-03-30 11:34] LABS: HEMO FLAGS AUTO DIFF
[2017-03-30 11:53] LABS: BICARBONATE 15.5 MEQ/L (21.0-32.0); POTASSIUM 3.9 MEQ/L (3.5-5.1)
[2017-03-30 11:56] LABS: BANDS 2 % (0-6); METAMYELOCYTES 5 % (0-1); MYELOCYTES 3 % (0-0); NEUTROPHIL # MANUAL DIFF 14.3 TH/MM3 (1.8-7.7); PLATELET ESTIMATE SMEAR NORMAL (NORMAL); PLATELET MORPHOLOGY NORMAL (NORMAL); POLYS (SEG NEUTROPHILS) 74 % (16-70); SCAN/DIFF FINAL DIFF MANUAL; WBC DIFF SAMPLE 100
--- NOTE | 2017-03-30 13:13 | MB ---
cc: YEVGENIY INIGUEZ DATE OF CONSULTATION: 03/30/2017. REASON FOR CONSULTATION: Evaluation of pneumonia and trache management. REQUESTING PHYSICIAN: Dr. Mendoza. HISTORY OF PRESENT ILLNESS: Mr. Iverson is a pleasant 66-year-old male who has history of recurrent laryngeal carcinoma. He had radiation treatment done. He has chronic respiratory failure and tracheostomy tube placement. The patient was brought to the hospital with worsening of his shortness of breath and hypoxia. His saturation was in the 70s. He had a VQ scan demonstrating low probability for pulmonary embolism. Chest x-ray shows possible increasing interstitial edema. His ultrasound of the legs shows probable deep venous thrombosis within the right posterior tibial veins. CBC showed white blood cell count 17,000, hemoglobin 10.7, hematocrit 32.1, MCV 82, platelet count 353,000. Sodium is 143, potassium 3.9, chloride 114, carbon dioxide 15, BUN 34, creatinine 2.02. PAST MEDICAL HISTORY: His past medical history is significant for: 1. History of laryngeal cancer. 2. Diabetes mellitus. 3. Hypertension. 4. Chronic kidney disease. 5. Peripheral artery disease. 6. Coronary artery disease. 7. Gastroesophageal reflux disease (GERD). 8. Aspiration. MEDICATIONS: He is currently takin. Vancomycin IV. 2. Hydrocodone one tablet PRN. 3. Protonix IV. 4. Haldol 2 milligrams q. 4 hours. 5. Xanax PRN. 6. Cilostazol 50 milligrams twice a day. 7. Hyoscyamine 0.125 milligrams twice a day. 8. Metoprolol 50 milligrams twice a day. 9. Zosyn IV. 10. Zithromax IV. ALLERGIES: 1. HMG-CoA REDUCTASE. 2. NIACIN. 3. FISH OIL. SOCIAL HISTORY: He has history of smoking in the past. No alcohol use. FAMILY HISTORY: He is . No children. REVIEW OF SYSTEMS: The patient pulled out his trache and the trache is replaced. He has bloody secretions. He has recent GI bleed and the patient is going to go for endoscopy. PHYSICAL EXAMINATION: GENERAL: Elderly male on trache tube. VITAL SIGNS: His blood pressure is 140/80, heart rate 107, respirations 22, temperature 97.8. HEAD, EYES, EARS, NOSE, THROAT: Pupils are equal and reactive to light. Oral mucosa and nasal mucosa are normal. NECK: The neck is supple. He has a trache in place. CHEST: Air entry equal bilaterally. He has scattered rales. CARDIOVASCULAR: S1-S2 normal. ABDOMEN: Abdomen soft and nontender and nondistended. He has a PEG-tube in place. EXTREMITIES: No edema. 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 Follows commands. IMPRESSION: 1. Lung infiltrate, possible aspiration pneumonia. 2. Mild hemoptysis. 3. GI bleed. 4. DVT. 5. History of laryngeal carcinoma status post radiation treatment. 6. History of coronary artery disease. 7. Diabetes mellitus. PLAN: Discussed with the patient. He is waiting for an EGD. He is off blood thinners. Continue antibiotics and aerosol treatments. I will give him racemic epinephrine nebulizer treatments. Supplement oxygen to keep saturation greater than 92%. Check cultures. Further treatment will depend on the course in the hospital. Thank you, Dr. Mendoza, for this consult. Yevgeniy Iniguez MD ADA/JCC /12:46 PM /12:56 PM
[2017-03-30] MEDS: SODIUM CHLOR 0.9% 1000 ML INJ 1,000 ML IV SCH (13:36)
--- NOTE | 2017-03-30 14:49 | HHI.GIFU ---
Subjective Remarks Lying in bed in no apparent distress. No active bleeding noted. states patient intermittently reports abdominal pain. (Estelita Carvalho) Objective Vitals I&O Vital Signs Date Time Temp Pulse Resp B/P Pulse Ox O2 Delivery O2 Flow Rate FiO2 03/30/17 14:23 99.3 102 20 139/71 100 03/30/17 12:17 97.8 107 22 145/80 97 03/30/17 10:27 97.7 96 22 145/79 99 03/30/17 09:42 97.6 97 20 160/79 99 03/30/17 09:05 97 21 03/30/17 08:32 98.4 114 20 145/79 97 03/30/17 04:00 97.2 116 22 150/79 100 03/30/17 00:47 97.6 118 21 164/90 97 03/29/17 21:11 97.5 121 20 151/76 98 03/29/17 20:27 98 T-piece 6.00 35 03/29/17 16:24 98.0 120 20 169/85 98 I/O 03/29/17 03/29/17 03/29/17 03/30/17 03/30/17 03/30/17 06:59 14:59 22:59 06:59 14:59 22:59 Intake Total 1020 ml Output Total 100 ml 30 ml Balance 1020 ml -100 ml -30 ml Intake IV Total 800 ml Tube Feeding 120 ml Other 100 ml Output Urine Total 100 ml 30 ml # Voids 6 2 3 # Bowel Movements 1 1 4 1 Laboratory Laboratory Tests Test 03/30/17 11:22 White Blood Count 17.0 Red Blood Count 3.90 Hemoglobin 10.7 Hematocrit 32.1 Mean Corpuscular Volume 82.4 Mean Corpuscular Hemoglobin 27.4 Mean Corpuscular Hemoglobin 33.2 Concent Red Cell Distribution Width 17.2 Platelet Count 353 Mean Platelet Volume 8.7 Neutrophils (%) (Auto) 88.6 Lymphocytes (%) (Auto) 4.0 Monocytes (%) (Auto) 7.1 Eosinophils (%) (Auto) 0.0 Basophils (%) (Auto) 0.3 Neutrophils # (Auto) 15.1 Lymphocytes # (Auto) 0.7 Monocytes # (Auto) 1.2 Eosinophils # (Auto) 0.0 Basophils # (Auto) 0.1 CBC Comment AUTO DIFF Differential Total Cells 100 Counted Neutrophils % (Manual) 74 Band Neutrophils % 2 Lymphocytes % 7 Monocytes % 9 Neutrophils # (Manual) 14.3 Metamyelocytes 5 Myelocytes 3 Differential Comment FINAL DIFF MANUAL Platelet Estimate NORMAL Platelet Morphology Comment NORMAL Sodium Level 143 Potassium Level 3.9 Chloride Level 114 Carbon Dioxide Level 15.5 Anion Gap 14 Blood Urea Nitrogen 34 Creatinine 2.02 Estimat Glomerular Filtration 33 Rate Random Glucose 184 Calcium Level 8.7 Imaging Last Impressions Chest X-Ray 03/30/17 0000 Signed Impressions: Service Date/Time: Thursday, March 30, 2017 10:48 - CONCLUSION: Increasing interstitial edema. Bobby Coto MD FACR Upper Extremity Ultrasound 03/25/17 0000 Signed Impressions: Service Date/Time: Saturday, March 25, 2017 16:31 - CONCLUSION: 1. Occlusive thrombus in the right cephalic vein. 2. No deep venous thrombosis left arm. Dakota Suarez MD Lung Scan- Nuclear Medicine 03/25/17 0000 Signed Impressions: Service Date/Time: Saturday, March 25, 2017 13:39 - CONCLUSION: No scintigraphic findings of pulmonary embolus. Jacky Guadarrama MD Lower Extremity Ultrasound 03/25/17 0000 Signed Impressions: Service Date/Time: Saturday, March 25, 2017 16:03 - CONCLUSION: Probable deep venous thrombosis within the right posterior tibial veins. Bret Calderón MD Head CT 03/25/17 0000 Signed Impressions: Service Date/Time: Saturday, March 25, 2017 11:52 - CONCLUSION: 1. Moderate cerebral atrophy. 2. Old lacunar infarcts within the bilateral basal ganglia. 3. No acute infarct, acute hemorrhage, mass effect or extra axial fluid collections. Bret Calderón MD Physical Exam HEENT: Normocephalic; atraumatic; no jaundice. Throat is clear. NECK: Neck is supple, tracheostomy CHEST: Scattered rhonchi CARDIAC: RRR, with no murmur gallop or rubs. ABDOMEN: Soft, nondistended, nontender; no hepatosplenomegaly; bowel sounds x 4. EXTREMITIES: No clubbing, cyanosis, or edema. (Estelita Carvalho) Assessment and Plan Plan ASSESSMENT: - GI bleed/ melena, drop in hgb- GI consulted for drop in hgb and reported black stools. 03/27/17 hgb 6.8, s/p blood transfusion. HH 10.7/32.1 today. at bedside and reports patient intermittently c/o lower abdominal pain. Multiple BM today. He had EGD/PEG in November of 2016 and that showed mild gastritis, bx was benign. He is on Plavix, but this is on hold now. He had colonoscopy years ago. Denies hematemesis, or hematochezia. PPI, hemodynamically stable, no black stools today - Possible aspiration [id number] on abx per attending - History significant for Laryngeal cancer, s/p tracheostomy, s/p PEG, diabetes mellitus 2 chronic kidney disease stage IV, hyperlipidemia, history of [place] 2012, history of PCI stent placement 2012, PAD , hypertension, PLAN: - EGD Friday - Obtain consents - NPO at midnight tonight - Cont. ppi - Monitor HH, transfuse as needed - Notify GI for active bleed - Cont. to hold Plavix - Supportive care - Further recommendations to follow based on results of above. Patient seen and examined by Dr. Welch and myself and this note is written on his behalf. (Estelita Carvalho) Physician Comments Patient seen and examined Agree with above Continue with current supportive care Monitor labs EGD tomorrow (Ti Welch MD) Estelita Carvalho Mar 30, 2017 14:49 Ti Welch MD Mar 30, 2017 21:06
[2017-03-30] MEDS: VANCOMYCIN INJ 1,250 MG in SODIUM CHLOR 0.9% 250 ML INJ 250 ML IV SCH (15:36)
[2017-03-30] MEDS: AZITHROMYCIN INJ 500 MG in SODIUM CHLOR 0.9% 250 ML INJ 250 ML IV SCH (15:36)
[2017-03-30] MEDS: ACETAMINOPHEN/HYDROcodone 325 MG/10 MG TAB PO PRN ×2 (16:22→21:03)
[2017-03-30] MEDS ORDERED: LACTATED RINGER'S 1000 ML IV PRN (16:30)
[2017-03-30] MEDS ORDERED: METOPROLOL TARTRATE 25 MG TAB PO PRN (16:30)
[2017-03-30] MEDS ORDERED: INSULIN HUMAN REGULAR 1,000 UNITS/10 ML VIAL SQ PRN (16:30)
[2017-03-30] MEDS ORDERED: POVIDONE IODINE 5% (ANTISEPSIS KIT) 4 APPLICATIONS EACH NARE PRN (16:30)
[2017-03-30] MEDS ORDERED: CHLORHEXIDINE GLUCONATE 2 % 1 PACK (2 CLOTHS) TOPICAL PRN (16:30)
[2017-03-30] MEDS ORDERED: SODIUM CHLORID 0.9% 500 ML IV PRN (16:30)
[2017-03-30] MEDS: RESP: ALBUTEROL 2.5 MG/IPRATROPIUM 0.5 MG NEB (PRN) INH (16:56)
[2017-03-31] VITALS: BP 133/70; PULSE 107; RESP 18; TEMP 97.5; O2SAT 94
[2017-03-31] MEDS: ALPRAZolam 0.25 MG TAB PO PRN ×2 (02:53→16:25)
[2017-03-31] MEDS: ACETAMINOPHEN/HYDROcodone 325 MG/10 MG TAB PO PRN ×5 (02:53→20:56)
[2017-03-31] MEDS: RESP: ALBUTEROL 2.5 MG/IPRATROPIUM 0.5 MG NEB (PRN) INH (03:27)
[2017-03-31 04:00] VITALS: BP 157/88; PULSE 110; RESP 18; TEMP 97.5; O2SAT 96
[2017-03-31] MEDS: CHLORHEXIDINE GLUCONATE 2 % 1 PACK (2 CLOTHS) TOP SCH ×2 (04:00→22:35)
[2017-03-31] MEDS: HALOPERIDOL LACTATE 5 MG/ML AMP IV PRN ×2 (05:01→20:59)
[2017-03-31] MEDS: PIPERACIL-TAZO 3.375 GM PREMIX 50 ML IV SCH ×4 (05:02→23:27)
[2017-03-31] MEDS: INSULIN ASPART SUPPLEMENTAL SCALE SQ SCH ×4 (06:51→21:34)
[2017-03-31] MEDS: CHLORHEXIDINE 0.12% (ORAL KIT) 15 ML CUP MT SCH ×2 (07:50→20:58)
[2017-03-31 08:00] VITALS: BP 129/61; PULSE 113; RESP 19; TEMP 97.3; O2SAT 98
[2017-03-31] MEDS: HYOSCYAMINE 0.125 MG TAB G-TUBE SCH ×2 (08:21→20:56)
[2017-03-31] MEDS: METOPROLOL TARTRATE 50 MG TAB G-TUBE SCH ×2 (08:22→20:58)
[2017-03-31] MEDS: CILOSTAZOL 50 MG TAB G-TUBE SCH ×2 (08:22→20:56)
[2017-03-31] MEDS: SODIUM CHLORIDE 0.9% FLUSH 10 ML FLUSH IV FLUSH SCH ×2 (08:24→20:59)
--- NOTE | 2017-03-31 09:12 | RC ---
cc: AVTAR CRUZ AWAIS DATE OF SERVICE: 03/28/2017 Mr. Iverson is a 66-year-old male I am asked to see by Dr. Melchor. A copy of this evaluation will be forwarded to Dr. Melchor to aid in medical decision making process. He was seen as an inpatient. He has history of head and neck cancer. His reports and he reports 74 Gy radiation twice a day at [facility] by Dr. Xie. Will obtain those outside records. He has findings suspicious for recurrent disease. He recently had tracheostomy placed. CT imaging obtained 02/17/2017, demonstrates a mass-like area right larynx, enlarged from prior exam, likely represents recurrent tumor with destruction of the right side of the cartilage, airway displacement. Other imaging includes a chest x-ray. He underwent tracheostomy placement. He does have a history of the primary head and neck cancer and underwent radiation therapy and re-imaging again consistent with disease progression. He had upper airway difficulties. He also had bleeding. He underwent tracheostomy for airway protection and PEG tube placed as well. He is not necessarily a candidate for chemotherapy. We discussed radiation therapy today as well. He has been in rehabilitation. They are interested in considering palliative treatment. They wish to consider radiation therapy. PAST MEDICAL AND SURGICAL HISTORY 1. 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 2. Diabetes. 3. Kidney disease, stage IV. 4. Hyperlipidemia. 5. AR. 6. Hypertension. 7. GERD. 8. Presumed laryngeal tumor recurrence. 9. Tracheostomy tube. 10. PEG tube. MEDICATIONS 1. Calcitriol. 2. Xanax. 3. Gabapentin. 4. Claritin. 5. Plavix. 6. Zofran. 7. Metoprolol. FAMILY HISTORY No first degree relatives with malignancy. SOCIAL HISTORY He smoked, he quit. He does not consume alcohol. 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 He is . He has four step-daughters. We spoke with his today, primary health care surrogate, Antonietta Yuan. PHYSICAL EXAMINATION KPS 70. HEENT: Eyes: Extraocular muscles intact. EXTREMITIES: Decreased muscle mass. NECK: Tracheostomy noted. CARDIOVASCULAR: Regular rate and rhythm noted on vital signs. MUSCULOSKELETAL: Decreased bulk. LABORATORY STUDIES Please see electronic medical record. IMPRESSION Mr. Iverson has presumed recurrent cancer. RECOMMENDATIONS We discussed radiation therapy. We could consider radiation though role potentially limited. This is presumed recurrence, not biopsied proven, on imaging suspicious for certainly. We could consider due to re-irradiation could have severe toxicity such as severe bleeding that he could from, severe injury as well. Today he expressed interest in proceeding with treatment. Will follow up with his health care surrogate next week. Palliative care also met with him, Antonietta primary health care surrogate, phone number [phone], . Avtar Cruz MD Radiation Oncologist TANI/DARREL /4:55 PM /8:42 AM [email or web address]
--- NOTE | 2017-03-31 11:26 | PD.ONC.PN ---
Subjective Subjective Remarks Afebrile overnight. Patient seen in GI lab s/p procedure. He is resting comfortably in nad. No complaints. Objective Data Date Time Temp Pulse Resp B/P Pulse Ox O2 Delivery O2 Flow Rate FiO2 03/31/17 08:00 97.3 113 19 129/61 98 03/31/17 04:00 97.5 110 18 157/88 96 03/31/17 00:00 97.5 107 18 133/70 94 03/30/17 22:28 96 T-piece 6.00 28 03/30/17 20:00 98.0 120 18 155/92 96 03/30/17 16:25 98.1 110 20 159/87 97 03/30/17 14:23 99.3 102 20 139/71 100 03/30/17 12:17 97.8 107 22 145/80 97 Result Diagram: 03/30/17 1122 03/30/17 1122 Laboratory Results Laboratory Tests Test 03/30/17 11:22 White Blood Count 17.0 TH/MM3 Red Blood Count 3.90 MIL/MM3 Hemoglobin 10.7 GM/DL Hematocrit 32.1 % Mean Corpuscular Volume 82.4 FL Mean Corpuscular Hemoglobin 27.4 PG Mean Corpuscular Hemoglobin 33.2 % Concent Red Cell Distribution Width 17.2 % Platelet Count 353 TH/MM3 Mean Platelet Volume 8.7 FL Neutrophils (%) (Auto) 88.6 % Lymphocytes (%) (Auto) 4.0 % Monocytes (%) (Auto) 7.1 % Eosinophils (%) (Auto) 0.0 % Basophils (%) (Auto) 0.3 % Neutrophils # (Auto) 15.1 TH/MM3 Lymphocytes # (Auto) 0.7 TH/MM3 Monocytes # (Auto) 1.2 TH/MM3 Eosinophils # (Auto) 0.0 TH/MM3 Basophils # (Auto) 0.1 TH/MM3 CBC Comment AUTO DIFF Differential Total Cells 100 Counted Neutrophils % (Manual) 74 % Band Neutrophils % 2 % Lymphocytes % 7 % Monocytes % 9 % Neutrophils # (Manual) 14.3 TH/MM3 Metamyelocytes 5 % Myelocytes 3 % Differential Comment FINAL DIFF MANUAL Platelet Estimate NORMAL Platelet Morphology Comment NORMAL Sodium Level 143 MEQ/L Potassium Level 3.9 MEQ/L Chloride Level 114 MEQ/L Carbon Dioxide Level 15.5 MEQ/L Anion Gap 14 MEQ/L Blood Urea Nitrogen 34 MG/DL Creatinine 2.02 MG/DL Estimat Glomerular Filtration 33 ML/MIN Rate Random Glucose 184 MG/DL Calcium Level 8.7 MG/DL Administered Medications Medications (Trade) Dose Ordered Sig/Alea Route PRN Reason Start Time Stop Time Status Last Admin Dose Admin Sodium Chloride (NS 1000 ml Inj) 1,000 ml @ 42 mls/hr [id number] IV 03/25/17 14:31 03/30/17 13:36 Sodium Chloride (NS Flush) 2 ml BID IV FLUSH 03/25/17 21:00 03/31/17 08:24 Acetaminophen (Tylenol) 650 mg Q6H PRN PO PAIN 1-10 AND/OR FEVER >101F 03/25/17 14:45 03/28/17 04:48 Heparin Sodium (Porcine) (Heparin Inj) 5,000 units Q12H SQ 03/25/17 16:00 Hold 03/27/17 15:07 Chlorhexidine Gluconate (Chlorhexidine 2% Cloth) Taper DAILY@04 TOP 03/26/17 04:00 03/22/18 03:59 03/27/17 02:59 Senna/Docusate Sodium (Genoveva-Colace) 1 tab BID PO 03/25/17 21:00 Hold 03/28/17 08:32 Chlorhexidine Gluconate 15 ml 15 ml BID@08,20 MT 03/25/17 20:00 03/31/17 07:50 Piperacillin Sod/ Tazobactam Sod 50 ml @ 100 mls/hr Q6H IV 03/25/17 17:00 03/31/17 05:02 Azithromycin/ Sodium Chloride (Zithromax Inj/ NS 250 ml Inj) 250 ml @ 250 mls/hr Q24H IV 03/25/17 15:00 03/30/17 15:36 Cilostazol (Pletal) 50 mg BID G-TUBE 03/26/17 09:00 03/31/17 08:22 Clopidogrel Bisulfate (Plavix) 75 mg DAILY G-TUBE 03/26/17 09:00 Hold 03/27/17 09:38 Hyoscyamine Sulfate (Levsin) 0.125 mg BID G-TUBE 03/26/17 09:00 03/31/17 08:21 Metoprolol Tartrate (Lopressor) 50 mg BID G-TUBE 03/26/17 09:00 03/31/17 08:22 Alprazolam (Xanax) 0.25 mg Q8H PRN PO ANXIETY 03/26/17 17:00 03/31/17 02:53 Haloperidol Lactate 2 mg 2 mg Q4H PRN IV SEE LABEL COMMENTS 03/27/17 16:30 03/31/17 05:01 Pantoprazole Sodium/Sodium Chloride (Protonix Inj/NS Inj) 100 ml @ 10 mls/hr CONTINUOUS IV 03/27/17 22:00 03/27/17 22:30 Acetaminophen/ Hydrocodone Bitart 1 tab 1 tab Q4H PRN PO PAIN SCALE 7 TO 10 03/27/17 23:15 03/31/17 08:23 Vancomycin HCl/ Sodium Chloride (Vancomycin Inj/ NS 250 ml Inj) 262.5 ml @ 250 mls/hr Q24H IV 03/28/17 17:00 03/30/17 15:36 Objective Remarks GENERAL: Middle aged debilitated male upright on stretcher in nad. SKIN: Warm and dry. HEAD: Normocephalic. EYES: No injection or drainage. NECK: Supple, trachea midline. trach in place on supplemental O2 via t-piece. CARDIOVASCULAR: Regular rate and rhythm RESPIRATORY: occasional rhonchi. diminished at bases. GASTROINTESTINAL: Abdomen soft, non-tender, nondistended. EXTREMITIES: No cyanosis. NEUROLOGICAL: awake and alert. Assessment/Plan Problem List: (1) Oropharyngeal cancer Status: Acute Plan: --palliative care following --patient with poor performance status. --family wanting to pursue aggressive care (2) DVT (deep venous thrombosis) Status: Acute Plan: +deep vein thrombosis in the right posterior tibial vein. His anticoagulation is now on hold. Plavix has been discontinued because of acute drop in hemoglobin and possibility of GI bleeding. --on Pletal. (3) Normocytic anemia Status: Acute Plan: --GI following --s/p EGD 03/31--showed blood in hypo and oropharynx --s/p pRBC transfusion (4) Sepsis Status: Acute Plan: --on multiple antibiotics --++aspiration pneumonia and sepsis. --BC no growth --sputum cx + MRSA Assessment 66y/o male with recurrent head and neck cancer admitted with aspiration pneumonia and sepsis. h/o Recurrent head and neck cancer. Diabetes type 2. Chronic kidney disease, stage IV. Hyperlipidemia. History of MA 2012. History of PCI and stent placement. Peripheral arterial disease. Hypertension. Plan 1. await CBC today 2. diet per GI 3. supportive care. Attending Statement The exam, history, and the medical decision-making described in the above note were completed with the assistance of the mid-level provider. I reviewed and agree with the findings presented. I attest that I had a [id number] encounter with the patient on the same day, and personally performed and documented my assessment and findings in the medical record. Problem Qualifiers (1) DVT (deep venous thrombosis): Qualified Code: I82.441 - Deep vein thrombosis (DVT) of tibial vein of right lower extremity, unspecified chronicity Neeru Pritchett Mar 31, 2017 11:26 Perico Melchor MD Mar 31, 2017 23:40
[2017-03-31] MEDS ORDERED: PROPOFOL 200 MG/20 ML AMP IV ONE (12:14)
--- NOTE | 2017-03-31 12:41 | GIPROC ---
[facility] [address] [facility]. [facility], [address] EGD PROCEDURE REPORT EXAM DATE: 03/31/2017 PATIENT NAME: Johnny Iverson MR #: [id number] BIRTHDATE: 1950 ATTENDING: Tamara Cole MD ORDER #: [id number] SHADE CLASSIFIER: Jonny Reaves and Brianna Small STATUS: inpatient INDICATIONS: The patient is a 66 yr old male here for an EGD due to anemia, drop in hb PROCEDURE PERFORMED: EGD, diagnostic MEDICATIONS: None and Per Anesthesia. TOPICAL ANESTHETIC: none CONSENT: The patient understands the risks and benefits of the procedure and understands that these risks include, but are not limited to: sedation, allergic reaction, infection, perforation and/or bleeding. Alternative means of evaluation and treatment include, among others: physical exam, x-rays, and/or surgical intervention. The patient elects to proceed with this endoscopic procedure. medical equipment was checked for proper function. Hand hygiene and appropriate measures for infection prevention was taken. After the risks, benefits and alternatives of the procedure were thoroughly explained, Informed consent was verified, confirmed and timeout was successfully executed by the treatment team. The patient was anesthetized with topical anesthesia and the Pentax [id number] endoscope was introduced through the mouth and advanced to the second portion of the duodenum. Retroflexed views revealed a hiatal hernia The gastroscope was then slowly withdrawn and removed. Scope changed to pediatric scope as regular scope could not be passed peg in stomach blood in dee and hypopharynx mass larynx, compressing upper esophagus, most likely cause of bleeding. ADVERSE EVENTS: There were no complications. IMPRESSIONS: 1. Scope changed to pediatric scope as regular scope could not be passed peg in stomach blood in dee and hypopharynx mass larynx, compressing upper esophagus, most likely cause of bleeding 2. Retroflexed views revealed a hiatal hernia RECOMMENDATIONS: 1. Anti-reflux regimen 2. Continue PPI 3. Restart tube feeding ent eval PATIENT CONDITION: stable DISPOSITION: Inpatient REPEAT EXAM: Return as needed for EGD Tamara Cole MD eSigned: Tamara Cole MD 03/31/2017 12:41 PM cc: PATIENT NAME: Johnny Iverson MR#: [id number]
[2017-03-31] MEDS: SODIUM CHLOR 0.9% 1000 ML INJ 1,000 ML IV SCH (13:25)
[2017-03-31] MEDS: AZITHROMYCIN INJ 500 MG in SODIUM CHLOR 0.9% 250 ML INJ 250 ML IV SCH (15:52)
[2017-03-31 16:00] VITALS: BP 156/79; PULSE 98; RESP 18; TEMP 98; O2SAT 99
[2017-03-31 16:32] LABS: AUTOMATED NEUTROPHIL # 13.1 TH/MM3 (1.8-7.7); BASOPHIL % 0.1 % (0.0-2.0); EOSINOPHIL % 0.2 % (0.0-4.0); HEMATOCRIT 31.2 % (39.0-51.0); LYMPH % 4.2 % (9.0-44.0); LYMPHOCYTE # 0.6 TH/MM3 (1.0-4.8); MEAN CELL VOLUME 83.4 FL (80.0-100.0); MEAN CORPUSCULAR HEMOGLOBIN 28.2 PG (27.0-34.0); MEAN CORPUSCULAR HGB CONC 33.8 % (32.0-36.0); MONO % 7.3 % (0.0-8.0); NEUT % 88.2 % (16.0-70.0); PLATELET COUNT 314 TH/MM3 (150-450); RED BLOOD COUNT 3.74 MIL/MM3 (4.50-5.90); RED CELL DISTRIBUTION WIDTH 18.2 % (11.6-17.2); WHITE BLOOD COUNT 14.8 TH/MM3 (4.0-11.0)
[2017-03-31 16:34] LABS: HEMO FLAGS AUTO DIFF
[2017-03-31] MEDS ORDERED: PHARMACY ORDERED LAB ONE (16:45)
[2017-03-31 16:47] LABS: BICARBONATE 17.6 MEQ/L (21.0-32.0); POTASSIUM 3.5 MEQ/L (3.5-5.1)
[2017-03-31 17:07] LABS: BANDS 3 % (0-6); NEUTROPHIL # MANUAL DIFF 12.7 TH/MM3 (1.8-7.7); POLYS (SEG NEUTROPHILS) 83 % (16-70); WBC DIFF SAMPLE 100
[2017-03-31 17:08] LABS: OVALOCYTES 1+ (NORMAL); PLATELET ESTIMATE SMEAR NORMAL (NORMAL); PLATELET MORPHOLOGY NORMAL (NORMAL); SCAN/DIFF FINAL DIFF MANUAL
--- NOTE | 2017-03-31 17:33 | HHI.PR ---
Subjective Remarks 66 YOWm with Laryngeal ca s/p radiation, trach, GIB,DVT has small amount of trach bloody secretion No fever Tolerates TF Objective Vital Signs Vital Signs Date Time Temp Pulse Resp B/P Pulse Ox O2 Delivery O2 Flow Rate FiO2 03/31/17 16:00 98.0 98 18 156/79 99 03/31/17 12:52 88 16 126/69 93 03/31/17 12:42 72 16 120/67 91 03/31/17 12:32 98.4 70 16 120/59 92 03/31/17 08:00 97.3 113 19 129/61 98 03/31/17 04:00 97.5 110 18 157/88 96 03/31/17 00:00 97.5 107 18 133/70 94 03/30/17 22:28 96 T-piece 6.00 28 03/30/17 20:00 98.0 120 18 155/92 96 I/O 03/30/17 03/30/17 03/30/17 03/31/17 03/31/17 03/31/17 07:00 15:00 23:00 07:00 15:00 23:00 Intake Total 670 ml 150 ml Output Total 30 ml Balance -30 ml 670 ml 150 ml Intake IV Total 620 ml Tube Feeding 50 ml Other 150 ml Output Urine Total 30 ml # Voids 3 1 3 # Bowel Movements 1 1 Result Diagram: 03/31/17 1543 03/31/17 1543 Objective Remarks GENERAL: MBMN WM, NAD SKIN: Warm and dry. HEAD: Normocephalic. EYES: No scleral icterus. No injection or drainage. NECK: Supple, trachea midline. No JVD or lymphadenopathy. has trach CARDIOVASCULAR: Regular rate and rhythm without murmurs, gallops, or rubs. RESPIRATORY: Breath sounds equal bilaterally. No accessory muscle use. GASTROINTESTINAL: Abdomen soft, non-tender, nondistended. has PEG tube MUSCULOSKELETAL: No cyanosis, or edema. BACK: Nontender without obvious deformity. No CVA tenderness. A/P Assessment and Plan RF,S/P Trach Hemoptysis mild DVT laryngeal ca, s/p radiation PLAN Cont Abx Trach care monitor hemoptysis Aerosol rosalees Real Coffey MD Mar 31, 2017 17:33
[2017-03-31] MEDS: VANCOMYCIN INJ 1,250 MG in SODIUM CHLOR 0.9% 250 ML INJ 250 ML IV SCH (18:08)
--- NOTE | 2017-03-31 18:17 | HHI.PR ---
Subjective Remarks Follow-up GI bleed, pneumonia, hemoptysis. Patient status post EGD earlier today. He also had radiation therapy today. He states that he feels about the same. Does feel short of breath today. Objective Vitals Vital Signs Date Time Temp Pulse Resp B/P Pulse Ox O2 Delivery O2 Flow Rate FiO2 03/31/17 18:03 Trach Collar 6.00 35 03/31/17 16:00 98.0 98 18 156/79 99 03/31/17 12:52 88 16 126/69 93 03/31/17 12:42 72 16 120/67 91 03/31/17 12:32 98.4 70 16 120/59 92 03/31/17 08:00 97.3 113 19 129/61 98 03/31/17 04:00 97.5 110 18 157/88 96 03/31/17 00:00 97.5 107 18 133/70 94 03/30/17 22:28 96 T-piece 6.00 28 03/30/17 20:00 98.0 120 18 155/92 96 I/O 03/30/17 03/30/17 03/30/17 03/31/17 03/31/17 03/31/17 07:00 15:00 23:00 07:00 15:00 23:00 Intake Total 670 ml 150 ml Output Total 30 ml Balance -30 ml 670 ml 150 ml Intake IV Total 620 ml Tube Feeding 50 ml Other 150 ml Output Urine Total 30 ml # Voids 3 1 3 # Bowel Movements 1 1 Result Diagram: 03/31/17 1543 03/31/17 1543 Imaging Last Impressions Chest X-Ray 03/30/17 0000 Signed Impressions: Service Date/Time: Thursday, March 30, 2017 10:48 - CONCLUSION: Increasing interstitial edema. Bobby Coto MD FACR Upper Extremity Ultrasound 03/25/17 0000 Signed Impressions: Service Date/Time: Saturday, March 25, 2017 16:31 - CONCLUSION: 1. Occlusive thrombus in the right cephalic vein. 2. No deep venous thrombosis left arm. Dakota Suarez MD Lung Scan-VQ Nuclear Medicine 03/25/17 0000 Signed Impressions: Service Date/Time: Saturday, March 25, 2017 13:39 - CONCLUSION: No scintigraphic findings of pulmonary embolus. Jacky Guadarrama MD Lower Extremity Ultrasound 03/25/17 0000 Signed Impressions: Service Date/Time: Saturday, March 25, 2017 16:03 - CONCLUSION: Probable deep venous thrombosis within the right posterior tibial veins. Bret Calderón MD Head CT 03/25/17 0000 Signed Impressions: Service Date/Time: Saturday, March 25, 2017 11:52 - CONCLUSION: 1. Moderate cerebral atrophy. 2. Old lacunar infarcts within the bilateral basal ganglia. 3. No acute infarct, acute hemorrhage, mass effect or extra axial fluid collections. Bret Calderón MD Objective Remarks General: Chronically ill appearing elderly male in no acute distress. Tracheostomy. In soft restraints. Heart: Regular rate and rhythm. No murmur. Lungs: Scattered rhonchi. Breathing is nonlabored. Abdomen: Soft, nontender, nondistended. Extremities: No lower extremity edema. Psych: Alert, nonverbal due to tracheostomy. 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 Pneumonia, MRSA, ?aspiration: Continue antibiotics (vancomycin, Zosyn), bronchodilators, supplemental oxygen. Recheck CXR. Appreciate pulmonology recommendations. 2. Severe sepsis secondary to pneumonia: Sepsis resolved. 3. Agitation: Continue Seroquel. Remains intermittently confused and agitated. Restraints as needed. Haldol as needed. 4. Coronary artery disease: Currently asymptomatic. Continue home medications. 5. GI bleed: Appreciate GI recommendations. S/P EGD. Bleeding from laryngeal mass. 6. Head and neck cancer: Appreciate oncology recommendations. Tube feeds per PEG tube. Tracheostomy in place. S/P radiation therapy today. 7. Chronic kidney disease stage IV: Stable. 8. Acute blood loss anemia: On EGD, bleeding appears to be from laryngeal mass. Hemoglobin improved following transfusion. 9. DVT: Ultrasound shows "probable DVT" in right posterior tibial veins. Plavix and heparin are on hold secondary to GI bleed. Continue cilostazol. 10. Poor prognosis: Appreciate palliative care recommendations. Patient would be hospice appropriate, however patient and his family at this time desire aggressive care. Problem Qualifiers (1) DVT (deep venous thrombosis): Qualified Code: I82.441 - Deep vein thrombosis (DVT) of tibial vein of right lower extremity, unspecified chronicity Kermit Mendoza MD Mar 31, 2017 18:17
[2017-03-31 20:00] VITALS: BP 156/81; PULSE 111; RESP 18; TEMP 97.7; O2SAT 94
[2017-04-01] VITALS (8 sets, daily range): BP systolic 142–155; BP diastolic 69–89; PULSE 89–105; RESP 18–20; TEMP 97.4–97.9; O2SAT 95–99
[2017-04-01 00:53] LABS: TRANSFERRIN IRON PROFILE 110 MG/DL (200-360)
[2017-04-01] MEDS: HALOPERIDOL LACTATE 5 MG/ML AMP IV PRN ×3 (01:56→22:08)
[2017-04-01] MEDS: ACETAMINOPHEN/HYDROcodone 325 MG/10 MG TAB PO PRN ×4 (01:56→22:07)
[2017-04-01] MEDS: ALPRAZolam 0.25 MG TAB PO PRN ×2 (01:56→22:07)
[2017-04-01] MEDS: RESP: ALBUTEROL 2.5 MG/IPRATROPIUM 0.5 MG NEB (PRN) INH (02:25)
[2017-04-01] MEDS: PIPERACIL-TAZO 3.375 GM PREMIX 50 ML IV SCH ×4 (05:04→23:36)
[2017-04-01] MEDS: PANTOPRAZOLE INJ 80 MG in SODIUM CHLORIDE 0.9% INJ 100 ML IV SCH (05:57)
[2017-04-01] MEDS: INSULIN ASPART SUPPLEMENTAL SCALE SQ SCH ×4 (06:19→22:42)
[2017-04-01] MEDS: CHLORHEXIDINE 0.12% (ORAL KIT) 15 ML CUP MT SCH ×2 (08:00→22:07)
--- NOTE | 2017-04-01 10:00 | PD.ONC.PN ---
Subjective Subjective Remarks Afebrile overnight. Patient resting in bed. Hoping to get out of bed to wheelchair today. at bedside. Objective Data Date Time Temp Pulse Resp B/P Pulse Ox O2 Delivery O2 Flow Rate FiO2 04/01/17 08:16 97.8 98 18 155/89 98 04/01/17 04:00 97.9 98 18 153/88 98 04/01/17 00:00 97.6 90 18 144/73 99 03/31/17 20:00 97.7 111 18 156/81 94 03/31/17 18:03 T-piece 6.00 35 03/31/17 16:00 98.0 98 18 156/79 99 03/31/17 12:52 88 16 126/69 93 03/31/17 12:42 72 16 120/67 91 03/31/17 12:32 98.4 70 16 120/59 92 04/01/17 04/01/17 04/01/17 07:00 15:00 23:00 Intake Total 950 ml Output Total 100 ml Balance 850 ml Result Diagram: 03/31/17 1543 03/31/17 1543 Laboratory Results Laboratory Tests Test 03/31/17 03/31/17 15:43 16:40 White Blood Count 14.8 TH/MM3 Red Blood Count 3.74 MIL/MM3 Hemoglobin 10.6 GM/DL Hematocrit 31.2 % Mean Corpuscular Volume 83.4 FL Mean Corpuscular Hemoglobin 28.2 PG Mean Corpuscular Hemoglobin 33.8 % Concent Red Cell Distribution Width 18.2 % Platelet Count 314 TH/MM3 Mean Platelet Volume 9.0 FL Neutrophils (%) (Auto) 88.2 % Lymphocytes (%) (Auto) 4.2 % Monocytes (%) (Auto) 7.3 % Eosinophils (%) (Auto) 0.2 % Basophils (%) (Auto) 0.1 % Neutrophils # (Auto) 13.1 TH/MM3 Lymphocytes # (Auto) 0.6 TH/MM3 Monocytes # (Auto) 1.1 TH/MM3 Eosinophils # (Auto) 0.0 TH/MM3 Basophils # (Auto) 0.0 TH/MM3 CBC Comment AUTO DIFF Differential Total Cells 100 Counted Neutrophils % (Manual) 83 % Band Neutrophils % 3 % Lymphocytes % 8 % Monocytes % 6 % Neutrophils # (Manual) 12.7 TH/MM3 Differential Comment FINAL DIFF MANUAL Platelet Estimate NORMAL Platelet Morphology Comment NORMAL Ovalocytes 1+ Sodium Level 146 MEQ/L Potassium Level 3.5 MEQ/L Chloride Level 114 MEQ/L Carbon Dioxide Level 17.6 MEQ/L Anion Gap 14 MEQ/L Blood Urea Nitrogen 33 MG/DL Creatinine 1.98 MG/DL Estimat Glomerular Filtration 34 ML/MIN Rate Random Glucose 167 MG/DL Calcium Level 8.9 MG/DL Iron Level 59 MCG/DL Total Iron Binding Capacity 154 MCG/DL Percent Iron Saturation 38.3 % Transferrin 110 MG/DL Vitamin B12 Level 1213 PG/ML Vancomycin Level Trough 23.8 MCG/ML Administered Medications Medications (Trade) Dose Ordered Sig/Alea Route PRN Reason Start Time Stop Time Status Last Admin Dose Admin Sodium Chloride (NS 1000 ml Inj) 1,000 ml @ 42 mls/hr [id number] IV 03/25/17 14:31 03/30/17 13:36 Sodium Chloride (NS Flush) 2 ml BID IV FLUSH 03/25/17 21:00 03/31/17 20:59 Acetaminophen (Tylenol) 650 mg Q6H PRN PO PAIN 1-10 AND/OR FEVER >101F 03/25/17 14:45 03/28/17 04:48 Heparin Sodium (Porcine) (Heparin Inj) 5,000 units Q12H SQ 03/25/17 16:00 Hold 03/27/17 15:07 Chlorhexidine Gluconate (Chlorhexidine 2% Cloth) Taper DAILY@04 TOP 03/26/17 04:00 03/22/18 03:59 03/27/17 02:59 Senna/Docusate Sodium (Genoveva-Colace) 1 tab BID PO 03/25/17 21:00 Hold 03/28/17 08:32 Chlorhexidine Gluconate 15 ml 15 ml BID@08,20 MT 03/25/17 20:00 03/31/17 20:58 Piperacillin Sod/ Tazobactam Sod 50 ml @ 100 mls/hr Q6H IV 03/25/17 17:00 04/01/17 05:04 Azithromycin/ Sodium Chloride (Zithromax Inj/ NS 250 ml Inj) 250 ml @ 250 mls/hr Q24H IV 03/25/17 15:00 03/31/17 15:52 Cilostazol (Pletal) 50 mg BID G-TUBE 03/26/17 09:00 03/31/17 20:56 Clopidogrel Bisulfate (Plavix) 75 mg DAILY G-TUBE 03/26/17 09:00 Hold 03/27/17 09:38 Hyoscyamine Sulfate (Levsin) 0.125 mg BID G-TUBE 03/26/17 09:00 03/31/17 20:56 Metoprolol Tartrate (Lopressor) 50 mg BID G-TUBE 03/26/17 09:00 03/31/17 20:58 Alprazolam (Xanax) 0.25 mg Q8H PRN PO ANXIETY 03/26/17 17:00 04/01/17 01:56 Haloperidol Lactate 2 mg 2 mg Q4H PRN IV SEE LABEL COMMENTS 03/27/17 16:30 04/01/17 05:57 Pantoprazole Sodium/Sodium Chloride (Protonix Inj/NS Inj) 100 ml @ 10 mls/hr CONTINUOUS IV 03/27/17 22:00 04/01/17 05:57 Acetaminophen/ Hydrocodone Bitart 1 tab 1 tab Q4H PRN PO PAIN SCALE 7 TO 10 03/27/17 23:15 04/01/17 06:05 Vancomycin HCl/ Sodium Chloride (Vancomycin Inj/ NS 250 ml Inj) 262.5 ml @ 250 mls/hr Q24H IV 03/28/17 17:00 Hold 03/31/17 18:08 Objective Remarks GENERAL: chronically ill male upright in bed in nad. SKIN: Warm and dry. HEAD: Normocephalic. EYES: No injection or drainage. NECK: Supple, trachea midline. on 6L O2 via t-piece. CARDIOVASCULAR: Regular rate and rhythm RESPIRATORY: occasional rhonchi. diminished at bases. GASTROINTESTINAL: Abdomen soft, non-tender, nondistended. EXTREMITIES: No cyanosis. NEUROLOGICAL: awake and alert. Assessment/Plan Problem List: (1) Oropharyngeal cancer Status: Acute Plan: --palliative care following --patient with poor performance status. --family wanting to pursue aggressive care --on tube feeds (2) DVT (deep venous thrombosis) Status: Acute Plan: +deep vein thrombosis in the right posterior tibial vein. His anticoagulation is now on hold. Plavix has been discontinued because of acute drop in hemoglobin and possibility of GI bleeding. --on Pletal. (3) Normocytic anemia Status: Acute Plan: --GI following --s/p EGD 03/31--showed blood in hypo and oropharynx --s/p pRBC transfusion --B12 WNL --low iron and TIBC (4) Sepsis Status: Acute Plan: --on multiple antibiotics --++aspiration pneumonia and sepsis. --BC no growth --sputum cx + MRSA Assessment 66y/o male with recurrent head and neck cancer admitted with aspiration pneumonia and sepsis. h/o Recurrent head and neck cancer. Diabetes type 2. Chronic kidney disease, stage IV. Hyperlipidemia. History of PR 2012. History of PCI and stent placement. Peripheral arterial disease. Hypertension. Plan 1. continue antibiotics 2. supportive care 3. monitor CBC Attending Statement The exam, history, and the medical decision-making described in the above note were completed with the assistance of the mid-level provider. I reviewed and agree with the findings presented. I attest that I had a [id number] encounter with the patient on the same day, and personally performed and documented my assessment and findings in the medical record. relapsed laryngeal cancer with airway obstruction Plans for XRT possibly this weak Will give Erbitux outpatient d/w patient patient wants to pursue aggressive treatment Case discussed with Dr. Cruz today Anemia studies show iron deficiency will give iron infusion d/w RN Problem Qualifiers (1) DVT (deep venous thrombosis): Qualified Code: I82.441 - Deep vein thrombosis (DVT) of tibial vein of right lower extremity, unspecified chronicity Neeru Pritchett Apr 01, 2017 10:00 Perico Melchor MD Apr 01, 2017 23:04
[2017-04-01] MEDS: CILOSTAZOL 50 MG TAB G-TUBE SCH ×2 (10:07→22:07)
[2017-04-01] MEDS: METOPROLOL TARTRATE 50 MG TAB G-TUBE SCH ×2 (10:07→22:07)
[2017-04-01] MEDS: HYOSCYAMINE 0.125 MG TAB G-TUBE SCH ×2 (10:07→22:07)
[2017-04-01] MEDS: SODIUM CHLOR 0.9% 1000 ML INJ 1,000 ML IV SCH ×2 (10:09→13:14)
[2017-04-01] MEDS: SODIUM CHLORIDE 0.9% FLUSH 10 ML FLUSH IV FLUSH SCH ×2 (10:17→22:08)
[2017-04-01 10:36] LABS: AUTOMATED NEUTROPHIL # 9.9 TH/MM3 (1.8-7.7); BASOPHIL % 0.2 % (0.0-2.0); EOSINOPHIL % 0.1 % (0.0-4.0); HEMATOCRIT 32.1 % (39.0-51.0); LYMPHOCYTE # 0.6 TH/MM3 (1.0-4.8); MEAN CORPUSCULAR HEMOGLOBIN 26.6 PG (27.0-34.0); MEAN CORPUSCULAR HGB CONC 31.7 % (32.0-36.0); MONO % 7.3 % (0.0-8.0); NEUT % 87.4 % (16.0-70.0); PLATELET COUNT 303 TH/MM3 (150-450); RED BLOOD COUNT 3.82 MIL/MM3 (4.50-5.90); WHITE BLOOD COUNT 11.3 TH/MM3 (4.0-11.0)
[2017-04-01 10:41] LABS: HEMO FLAGS AUTO DIFF
[2017-04-01 10:48] LABS: BICARBONATE 18.9 MEQ/L (21.0-32.0); POTASSIUM 3.4 MEQ/L (3.5-5.1)
[2017-04-01 11:22] LABS: PLATELET ESTIMATE SMEAR NORMAL (NORMAL); PLATELET MORPHOLOGY NORMAL (NORMAL); SCAN/DIFF AUTO DIFF CONFIRMED
--- NOTE | 2017-04-01 11:33 | HHI.PR ---
Subjective Remarks Follow up pneumonia, hemoptysis. Patient states that he feels about the same. Denies chest pain, dyspnea. Objective Vitals Vital Signs Date Time Temp Pulse Resp B/P Pulse Ox O2 Delivery O2 Flow Rate FiO2 04/01/17 09:32 98 T-piece 35 04/01/17 08:16 97.8 98 18 155/89 98 04/01/17 04:00 97.9 98 18 153/88 98 04/01/17 00:00 97.6 90 18 144/73 99 03/31/17 20:00 97.7 111 18 156/81 94 03/31/17 18:03 T-piece 6.00 35 03/31/17 16:00 98.0 98 18 156/79 99 03/31/17 12:52 88 16 126/69 93 03/31/17 12:42 72 16 120/67 91 03/31/17 12:32 98.4 70 16 120/59 92 I/O 03/31/17 03/31/17 03/31/17 04/01/17 04/01/17 04/01/17 06:59 14:59 22:59 06:59 14:59 22:59 Intake Total 670 ml 150 ml 950 ml Output Total 50 ml 50 ml Balance 670 ml 150 ml -50 ml 900 ml Intake IV Total 620 ml 650 ml Tube Feeding 50 ml 120 ml Tube Irrigant 180 ml Other 150 ml Output Urine Total 50 ml 50 ml # Voids 3 4 1 # Bowel Movements 1 2 Result Diagram: 04/01/17 0950 04/01/17 0950 Imaging Last Impressions Chest X-Ray 03/30/17 0000 Signed Impressions: Service Date/Time: Thursday, March 30, 2017 10:48 - CONCLUSION: Increasing interstitial edema. Bobby Coto MD FACR Upper Extremity Ultrasound 03/25/17 0000 Signed Impressions: Service Date/Time: Saturday, March 25, 2017 16:31 - CONCLUSION: 1. Occlusive thrombus in the right cephalic vein. 2. No deep venous thrombosis left arm. Dakota Suarez MD Lung Scan-VQ Nuclear Medicine 03/25/17 0000 Signed Impressions: Service Date/Time: Saturday, March 25, 2017 13:39 - CONCLUSION: No scintigraphic findings of pulmonary embolus. Jacky Guadarrama MD Lower Extremity Ultrasound 03/25/17 0000 Signed Impressions: Service Date/Time: Saturday, March 25, 2017 16:03 - CONCLUSION: Probable deep venous thrombosis within the right posterior tibial veins. Bret Calderón MD Head CT 03/25/17 0000 Signed Impressions: Service Date/Time: Saturday, March 25, 2017 11:52 - CONCLUSION: 1. Moderate cerebral atrophy. 2. Old lacunar infarcts within the bilateral basal ganglia. 3. No acute infarct, acute hemorrhage, mass effect or extra axial fluid collections. Bret Calderón MD Objective Remarks General: Chronically ill appearing elderly male in no acute distress. Tracheostomy. Heart: Regular rate and rhythm. No murmur. Lungs: Scattered rhonchi. Breathing is nonlabored. Abdomen: Soft, nontender, nondistended. Extremities: No lower extremity edema. Psych: Alert, nonverbal due to tracheostomy. 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 Pneumonia, MRSA, ?aspiration: Continue antibiotics (vancomycin, Zosyn), bronchodilators, supplemental oxygen. Recheck CXR. Appreciate pulmonology recommendations. Speech therapy eval. 2. Severe sepsis secondary to pneumonia: Sepsis resolved. 3. Agitation: Continue Seroquel. Remains intermittently confused and agitated. Restraints as needed. Haldol as needed. 4. Coronary artery disease: Currently asymptomatic. Continue home medications. 5. GI bleed: Appreciate GI recommendations. S/P EGD. Bleeding from laryngeal mass. 6. Head and neck cancer: Appreciate oncology recommendations. Tube feeds per PEG tube. Tracheostomy in place. S/P radiation therapy yesterday. 7. Chronic kidney disease stage IV: Stable. 8. Acute blood loss anemia: On EGD, bleeding appears to be from laryngeal mass. Hemoglobin improved following transfusion. 9. DVT: Ultrasound shows "probable DVT" in right posterior tibial veins. Plavix and heparin are on hold secondary to GI bleed. Continue cilostazol. 10. Poor prognosis: Appreciate palliative care recommendations. Patient would be hospice appropriate, however patient and his family at this time desire aggressive care. Problem Qualifiers (1) DVT (deep venous thrombosis): Qualified Code: I82.441 - Deep vein thrombosis (DVT) of tibial vein of right lower extremity, unspecified chronicity Kermit Mendoza MD Apr 01, 2017 11:33
--- NOTE | 2017-04-01 11:43 | HHI.HCPN ---
Reason for visit a. To assist with evaluation and management of symptoms including:dyspnea, fatigued b. To assist medical decision maker(s) with: better understanding of current medical conditions; weighing benefits/burdens of medical treatment options; making medical treatment decisions. Subjective/Interval History Patient seen to follow-up on comfort, goals. Status post EGD completed yesterday. Findings=blood in dee and hypopharynx , mass larynx, compressing upper esophagus, most likely cause of bleeding.Retroflexed views revealed a hiatal hernia. GI recommends continue antireflux regimen, PPI, tube feeding, ENT consultation. Consultation still pending at time of my exam. Status post XRT evaluation, Dr delgado indicates possible could offer XRT though may be of limited benefit . CXR from 03/30 increasing interstitial edema. WBC trending down slightly 14. H&H stable. BUN and creatinine remain elevated 34/2.3 Pt seen in room, no family present. He is alert, nodding to questions appropriately and attempting to mouth words. He has a cell phone in hand it appears to be texting. He indicates he is feeling "so-so "- not good, but not bad. Denies pain. Denies dyspnea. Denies any GI complaints. Breathing comfortably on T piece. Explore with him EGD completed yesterday, he nods in agreement with this. Advised that they found some bleeding, which could be secondary to radiation or worsen with radiation. He has had radiation consultation and ask if he still wishes to proceed with possible XRT he nods yes. He indicates his family has already been in today (apparently was in prior to my visit). Offer to call and update he nods no and points to his cell phone. Discuss with Dr. Mendoza medical attending. Not clear if EGD findings have been discussed yet with daughter who is healthcare surrogate. History per initial palliative consultation by Dr. 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 Patient was diagnosed with malignancy in early 2015. At that time he presented with dysphagia and imaging revealing mass centered in the supraglottic tissue that was 4.2 x 3.6 cm. The margins were ill -defined involvement. According, epiglottic fold, right side of the epiglottis. Patient was seen by [facility] in [place] and was deemed not to be a candidate for chemotherapy for her surgery. Patient was treated with a single modality radiation treatment and had good response to treatment and subsequent imaging did not show any residual disease. He was followed closely with periodic follow-ups and CT scan. Patient recently presented to oncology clinic with complaints of dysphagia feeling lump in his throat. CT scan was ordered but due to patient's insurance issue it was delayed. He was admitted to [facility] in [place] with significant dysphagia and a CT of the neck was ordered, on 02/17/2017 showing a mass in the right larynx region. There is destruction of the right side of the thyroid cartilage. It was displacement of the airway at the level of the legs throughout the left. Patient wanted to leave the hospital traveled to [place] and his plan was to seek treatment in the [facility]. However patient became more more dyspneic and was brought to the hospital on . He was seen by cashier [employer] and was in the ICU.CT neck reveals markedly narrowed upper airway. Complicating features include full anticoagulation with warfarin and plavix antiplatelet therapy. 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 Below the cancer and above the innominate artery is a window suitable for emergency percutaneous tracheostomy once coagulopathy is reversed. Eventually bleeding subsided, and the patient underwent surgery for trach for airway protection, 02/23/2017. Patient also has a PEG tube placement subsequently as well. Patient was transferred out of the ICU and on the Hospitalist service 02/24/2017. Patient seen by oncology 02/25/2017, and at that time oncologist note that patient is in the difficult situation. Patient has multiple comorbidities including chronic kidney disease, history of coronary artery disease. Patient upon oncologist evaluation was quite deconditioned. He is not candidate for surgery, or chemotherapy. Any salvage chemotherapy will be given only if performance status improves. Oncologist noted that he would discuss with radiation oncology about any palliative radiation treatment although he states "I am less optimistic as the mass involved the same field where radiation was given previously." Oncology recommends focus on nutrition and physical therapy. Other course of complication included pt Halicated and patient pulled out his T- piece. Pt was evaluated by Dr. Corona due to subtotal occulsion of the right internal carotid arter (seen by vasclar surgeon and not a candidate for invasive procedure). There were patient has questionable altered mental status. Psychiatry was consulted to evaluate the patient capacity to make medical decision. Course of hospitalization also complicated by Klebsiella pneumonia in which he was treated with Ceftriaxone and later by [facility]. Pt later went to rehabilitation on 03/03/3017. Palliative Care was consulted to review goals of care during his rehabilitation. At the time of family meeting. Goals of care were established. They have the understanding that pt's cancer is terminal, and that treatment offered is palliative, not curative. Their hope is that pt's functional status improve with rehab, and he will be able to undergo palliative treatment/immunglobulin therapy etc. Code status was reviewed and they maintained Full Code. Pt eventually was discharged from rehab Pt returned to the ER 03/22 due to pt coughing trach out. It was quickly replaced, and pt discharged. Pt returned 03/25/2017 due to respiratory distress. Pt was placed on 35% trach collar. Pt has leukocytosis and pt started on abx. Sputum culture came back with MRSA pneumonia. Pt also complicated with GI bleed, with anemia. GI has been consulted. Pt also has DVT on right posterior tibial veins and occlusive thrombus in the right cephalic vein. Palliative care consulted again to review goals of care. I spoke with pt, who is in restraints as he tried to pull out iv again. Pt was not at bedside. Pt himself seems to recognize me but like last time have difficulty speaking. He mouth words. I told him I just don't think functionally he would rebound to get any further treatment and to reconsider hospice. He was tearful. I also spoke with pt's daughters health care surrogate daughters: Antonietta and Triny. Understandably family is struggling with pt's decline. Antonietta had many questions in which I answered. I reinforce, that pt can get antibiotics, depending on the type on hospice. In terms of anticoagulation, she wish for pt to be place back on coumadine, but I did say, given pt's GI bleed and anemia, that may be difficult. She asked "Can they just cauterize it and that place him back on?" Again reviewed pt is in a tough situation in terms of balancing hemorrhage and anticoagulation. Family still struggle. Goals of care is as follows: They wish pt to have medical care maximize, specifically pneumonia treated, and have pt anticoagulated, GI bleed stop. After that they will again consider hospice. They have spoken to hospice in the past and have toured the care centers. Family/friend interactions *Attempted to reach primary healthcare surrogate daughter Antonietta to introduce myself as Dr. Mae is off service this week, voicemail left. . Advance Directives Health Care Surrogate: Copy in medical record Objective Vital Signs Date Time Temp Pulse Resp B/P Pulse Ox O2 Delivery O2 Flow Rate FiO2 04/01/17 09:32 98 T-piece 35 04/01/17 08:16 97.8 98 18 155/89 98 04/01/17 04:00 97.9 98 18 153/88 98 04/01/17 00:00 97.6 90 18 144/73 99 03/31/17 20:00 97.7 111 18 156/81 94 03/31/17 18:03 T-piece 6.00 35 03/31/17 16:00 98.0 98 18 156/79 99 03/31/17 12:52 88 16 126/69 93 03/31/17 12:42 72 16 120/67 91 03/31/17 12:32 98.4 70 16 120/59 92 Intake & Output 04/01/17 04/01/17 06:59 18:59 Intake Total 950 ml Output Total 50 ml 50 ml Balance -50 ml 900 ml Intake IV Total 650 ml Tube Feeding 120 ml Tube Irrigant 180 ml Output Urine Total 50 ml 50 ml # Voids 4 1 # Bowel Movements 2 Physical Exam CONSTITUTIONAL/GENERAL: This is thin, chronically ill-appearing patient, no distress TUBES/LINES/DRAINS: PEG tube, PIV left upper extremity, external catheter SKIN: No jaundice, rashes, or lesions. NECK: Trachea midline. No blood observed during tracheostomy site CARDIOVASCULAR: Regular rate and rhythm without murmurs. No JVD. Peripheral pulses symmetric. RESPIRATORY/CHEST: Symmetric, unlabored respirations, Via T piece 35% FiO2 . Clear to auscultation. Breath sounds equal bilaterally. GASTROINTESTINAL: Abdomen soft, non-tender, nondistended. Bowel sounds normoactive. Tube feedings infusing via PEG tube. GENITOURINARY: Without palpable bladder distension. External catheter NEUROLOGICAL: Awake and alert, nonverbal due to trach. Nods to yes/no questions and mouths words, and gestures. Appears at least partially oriented though difficult to fully assess insight due to communication barriers. Moves all 4 extremities. Follows commands. PSYCHIATRIC: No obvious anxiety/depression. . Diagnostic Tests Laboratory Laboratory Tests Test 03/30/17 03/31/17 03/31/17 04/01/17 11:22 15:43 16:40 08:30 White Blood Count 17.0 TH/MM3 14.8 TH/MM3 (4.0-11.0) (4.0-11.0) Red Blood Count 3.90 MIL/MM3 3.74 MIL/MM3 (4.50-5.90) (4.50-5.90) Hemoglobin 10.7 GM/DL 10.6 GM/DL (13.0-17.0) (13.0-17.0) Hematocrit 32.1 % 31.2 % (39.0-51.0) (39.0-51.0) Mean Corpuscular Volume 82.4 FL 83.4 FL (80.0-100.0) (80.0-100.0) Mean Corpuscular Hemoglobin 27.4 PG 28.2 PG (27.0-34.0) (27.0-34.0) Mean Corpuscular Hemoglobin 33.2 % 33.8 % Concent (32.0-36.0) (32.0-36.0) Red Cell Distribution Width 17.2 % 18.2 % (11.6-17.2) (11.6-17.2) Platelet Count 353 TH/MM3 314 TH/MM3 (150-450) (150-450) Mean Platelet Volume 8.7 FL 9.0 FL (7.0-11.0) (7.0-11.0) Neutrophils (%) (Auto) 88.6 % 88.2 % (16.0-70.0) (16.0-70.0) Lymphocytes (%) (Auto) 4.0 % 4.2 % (9.0-44.0) (9.0-44.0) Monocytes (%) (Auto) 7.1 % (0.0-8.0) 7.3 % (0.0-8.0) Eosinophils (%) (Auto) 0.0 % (0.0-4.0) 0.2 % (0.0-4.0) Basophils (%) (Auto) 0.3 % (0.0-2.0) 0.1 % (0.0-2.0) Neutrophils # (Auto) 15.1 TH/MM3 13.1 TH/MM3 (1.8-7.7) (1.8-7.7) Lymphocytes # (Auto) 0.7 TH/MM3 0.6 TH/MM3 (1.0-4.8) (1.0-4.8) Monocytes # (Auto) 1.2 TH/MM3 1.1 TH/MM3 (0-0.9) (0-0.9) Eosinophils # (Auto) 0.0 TH/MM3 0.0 TH/MM3 (0-0.4) (0-0.4) Basophils # (Auto) 0.1 TH/MM3 0.0 TH/MM3 (0-0.2) (0-0.2) CBC Comment AUTO DIFF AUTO DIFF Differential Total Cells 100 100 Counted Neutrophils % (Manual) 74 % (16-70) 83 % (16-70) Band Neutrophils % 2 % (0-6) 3 % (0-6) Lymphocytes % 7 % (9-44) 8 % (9-44) Monocytes % 9 % (0-8) 6 % (0-8) Neutrophils # (Manual) 14.3 TH/MM3 12.7 TH/MM3 (1.8-7.7) (1.8-7.7) Metamyelocytes 5 % (0-1) Myelocytes 3 % (0-0) Differential Comment FINAL DIFF FINAL DIFF MANUAL MANUAL Platelet Estimate NORMAL NORMAL (NORMAL) (NORMAL) Platelet Morphology Comment NORMAL NORMAL (NORMAL) (NORMAL) Sodium Level 143 MEQ/L 146 MEQ/L (136-145) (136-145) Potassium Level 3.9 MEQ/L 3.5 MEQ/L (3.5-5.1) (3.5-5.1) Chloride Level 114 MEQ/L 114 MEQ/L (98-107) (98-107) Carbon Dioxide Level 15.5 MEQ/L 17.6 MEQ/L (21.0-32.0) (21.0-32.0) Anion Gap 14 MEQ/L (5-15) 14 MEQ/L (5-15) Blood Urea Nitrogen 34 MG/DL (7-18) 33 MG/DL (7-18) Creatinine 2.02 MG/DL 1.98 MG/DL (0.60-1.30) (0.60-1.30) Estimat Glomerular Filtration 33 ML/MIN (>89) 34 ML/MIN (>89) Rate Random Glucose 184 MG/DL 167 MG/DL (74-106) (74-106) Calcium Level 8.7 MG/DL 8.9 MG/DL (8.5-10.1) (8.5-10.1) Ovalocytes 1+ (NORMAL) Iron Level 59 MCG/DL (65-175) Total Iron Binding Capacity 154 MCG/DL (250-450) Percent Iron Saturation 38.3 % (20-50) Transferrin 110 MG/DL (200-360) Vitamin B12 Level 1213 PG/ML (193-986) Vancomycin Level Trough 23.8 MCG/ML (5.0-10.0) Random Vancomycin Level 30.7 COMMENT Test 04/01/17 09:50 White Blood Count 11.3 TH/MM3 (4.0-11.0) Red Blood Count 3.82 MIL/MM3 (4.50-5.90) Hemoglobin 10.2 GM/DL (13.0-17.0) Hematocrit 32.1 % (39.0-51.0) Mean Corpuscular Volume 84.0 FL (80.0-100.0) Mean Corpuscular Hemoglobin 26.6 PG (27.0-34.0) Mean Corpuscular Hemoglobin 31.7 % Concent (32.0-36.0) Red Cell Distribution Width 18.0 % (11.6-17.2) Platelet Count 303 TH/MM3 (150-450) Mean Platelet Volume 8.7 FL (7.0-11.0) Neutrophils (%) (Auto) 87.4 % (16.0-70.0) Lymphocytes (%) (Auto) 5.0 % (9.0-44.0) Monocytes (%) (Auto) 7.3 % (0.0-8.0) Eosinophils (%) (Auto) 0.1 % (0.0-4.0) Basophils (%) (Auto) 0.2 % (0.0-2.0) Neutrophils # (Auto) 9.9 TH/MM3 (1.8-7.7) Lymphocytes # (Auto) 0.6 TH/MM3 (1.0-4.8) Monocytes # (Auto) 0.8 TH/MM3 (0-0.9) Eosinophils # (Auto) 0.0 TH/MM3 (0-0.4) Basophils # (Auto) 0.0 TH/MM3 (0-0.2) CBC Comment AUTO DIFF Sodium Level 147 MEQ/L (136-145) Potassium Level 3.4 MEQ/L (3.5-5.1) Chloride Level 115 MEQ/L (98-107) Carbon Dioxide Level 18.9 MEQ/L (21.0-32.0) Anion Gap 13 MEQ/L (5-15) Blood Urea Nitrogen 34 MG/DL (7-18) Creatinine 2.03 MG/DL (0.60-1.30) Estimat Glomerular Filtration 33 ML/MIN (>89) Rate Random Glucose 167 MG/DL (74-106) Calcium Level 8.5 MG/DL (8.5-10.1) Result Diagram: 04/01/17 0950 04/01/17 0950 Imaging Last Impressions Chest X-Ray 03/30/17 0000 Signed Impressions: Service Date/Time: Thursday, March 30, 2017 10:48 - CONCLUSION: Increasing interstitial edema. Bobby Coto MD FACR Upper Extremity Ultrasound 03/25/17 0000 Signed Impressions: Service Date/Time: Saturday, March 25, 2017 16:31 - CONCLUSION: 1. Occlusive thrombus in the right cephalic vein. 2. No deep venous thrombosis left arm. Dakota Suarez MD Lung Scan-V Nuclear Medicine 03/25/17 0000 Signed Impressions: Service Date/Time: Saturday, March 25, 2017 13:39 - CONCLUSION: No scintigraphic findings of pulmonary embolus. Jacky Guadarrama MD Lower Extremity Ultrasound 03/25/17 0000 Signed Impressions: Service Date/Time: Saturday, March 25, 2017 16:03 - CONCLUSION: Probable deep venous thrombosis within the right posterior tibial veins. Bret Calderón MD Head CT 03/25/17 0000 Signed Impressions: Service Date/Time: Saturday, March 25, 2017 11:52 - CONCLUSION: 1. Moderate cerebral atrophy. 2. Old lacunar infarcts within the bilateral basal ganglia. 3. No acute infarct, acute hemorrhage, mass effect or extra axial fluid collections. 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 she is a nurse working in [employer].Triny Mccartylisandrocandis (daughter), works in [employer]. Spiritual: Legal:Antonietta Yuan. Primary HCS [phone] or [phone] Triny Fortune (2nd [facility]) [phone] or [phone] or [phone] Ethical issues impacting care: Important Contacts Health Care Surrogate(s): Antonietta Yuan. 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 Not a cadidiate for chemo or surgery. May be a candidate for radiation, although oncology had previously stated less optomistic as the mass involves the same filed where radiation was given previously. Pt also have underlying CAD, CKD, occluded right carotid artery, deconditioning, manutrition, pneumonia, and confusion at times.. He is s/p peg and trach. Has DVT, GI bleed. Would be appropriate fo hospice if goals of care were to transition to comfort measures only. Code Status: Full Code Plan * capacity- mental status flutuates, but may be improving. Suggest all decisions be joint decision in medical decision making. * Code: full. * SYMPTOMS == dypnea/ weakness- cancer burden- no new med rec.currently breathing comfortably on T piece. * GOALS : Per initial palliative consultation: Patient and Family have been struggling with patient decline. Palliative previously discussed hospice with them, and apparently they have in the past met with hospice. They wish to maximize current medical treatments, may consider discussing hospice more at a later point. Are.I spoke with pt, who is in restraints as he tried to pull out iv again. Pt was not at bedside. Pt himself seems to recognize me but like last time have difficulty speaking. He mouth words. I told him I just don 't think functionally he would rebound to get any further treatment and to reconsider hospice. 8/1patient seen today in follow-up. Patient continues to express aggressive goals. I attempted to reach daughter Antonietta, primary healthcare surrogate to introduce myself, voicemail left. * Palliative care will continue to follow during hospital course as condition evolves, to assist patient/decision-maker with understanding of medical conditions, weighing benefits/burdens of treatment options, for clarification of goals of treatment. Additionally will assist with any symptoms of palliative concern Time Spent Total Floor Time (mins): 25 Attestation To help prompt me to consider important information that might be impacting today's encounter and assessment, information from prior notes written by myself or my colleagues may have been "brought forward" into today's note. My signature on this note, however, is an attestation that I personally performed the exam, history, and/or decision-making noted today, and, unless otherwise indicated, the interactions with patient, family, and staff as well as the review of records all occurred today. I also attest that the listed assessment and stated plan reflect my best clinical judgment today based on the combination of historical information, prior notes, and today's exam/ interactions. When time spent is documented, it refers only to time spent today by the signer, or if indicated, combined time spent today by collaborating physician/nurse practitioner. Maria Eugenia Barnes Apr 01, 2017 11:43
--- NOTE | 2017-04-01 16:22 | HHI.GIFU ---
Subjective Remarks Pt resting in bed, soft restraints, no apparent distress. Indicates that he feels so-so, denies abd pain or nausea. Per RN bleeding from trach site improved, no other bleeding. (Sarah Claros) Objective Vitals I&O Vital Signs Date Time Temp Pulse Resp B/P Pulse Ox O2 Delivery O2 Flow Rate FiO2 04/01/17 16:13 97.9 99 18 155/85 95 04/01/17 12:11 97.9 89 18 142/69 97 04/01/17 09:32 98 T-piece 35 04/01/17 08:16 97.8 98 18 155/89 98 04/01/17 04:00 97.9 98 18 153/88 98 04/01/17 00:00 97.6 90 18 144/73 99 03/31/17 20:00 97.7 111 18 156/81 94 03/31/17 18:03 T-piece 6.00 35 I/O 03/31/17 03/31/17 03/31/17 04/01/17 04/01/17 04/01/17 07:00 15:00 23:00 07:00 15:00 23:00 Intake Total 670 ml 150 ml 950 ml Output Total 100 ml Balance 670 ml 150 ml 850 ml Intake IV Total 620 ml 650 ml Tube Feeding 50 ml 120 ml Tube Irrigant 180 ml Other 150 ml Output Urine Total 100 ml # Voids 3 5 2 # Bowel Movements 1 2 1 Laboratory Laboratory Tests Test 03/31/17 04/01/17 04/01/17 16:40 08:30 09:50 Vancomycin Level Trough 23.8 Random Vancomycin Level 30.7 White Blood Count 11.3 Red Blood Count 3.82 Hemoglobin 10.2 Hematocrit 32.1 Mean Corpuscular Volume 84.0 Mean Corpuscular Hemoglobin 26.6 Mean Corpuscular Hemoglobin 31.7 Concent Red Cell Distribution Width 18.0 Platelet Count 303 Mean Platelet Volume 8.7 Neutrophils (%) (Auto) 87.4 Lymphocytes (%) (Auto) 5.0 Monocytes (%) (Auto) 7.3 Eosinophils (%) (Auto) 0.1 Basophils (%) (Auto) 0.2 Neutrophils # (Auto) 9.9 Lymphocytes # (Auto) 0.6 Monocytes # (Auto) 0.8 Eosinophils # (Auto) 0.0 Basophils # (Auto) 0.0 CBC Comment AUTO DIFF Differential Comment AUTO DIFF CONFIRMED Platelet Estimate NORMAL Platelet Morphology Comment NORMAL Red Cell Morphology Comment NORMAL Sodium Level 147 Potassium Level 3.4 Chloride Level 115 Carbon Dioxide Level 18.9 Anion Gap 13 Blood Urea Nitrogen 34 Creatinine 2.03 Estimat Glomerular Filtration 33 Rate Random Glucose 167 Calcium Level 8.5 Imaging Last Impressions Chest X-Ray 03/30/17 0000 Signed Impressions: Service Date/Time: Thursday, March 30, 2017 10:48 - CONCLUSION: Increasing interstitial edema. Bobby Coto MD FACR Upper Extremity Ultrasound 03/25/17 0000 Signed Impressions: Service Date/Time: Saturday, March 25, 2017 16:31 - CONCLUSION: 1. Occlusive thrombus in the right cephalic vein. 2. No deep venous thrombosis left arm. Dakota Suarez MD Lung Scan-V Nuclear Medicine 03/25/17 0000 Signed Impressions: Service Date/Time: Saturday, March 25, 2017 13:39 - CONCLUSION: No scintigraphic findings of pulmonary embolus. Jacky Guadarrama MD Lower Extremity Ultrasound 03/25/17 0000 Signed Impressions: Service Date/Time: Saturday, March 25, 2017 16:03 - CONCLUSION: Probable deep venous thrombosis within the right posterior tibial veins. Bret Calderón MD Head CT 03/25/17 Signed Impressions: Service Date/Time: Saturday, March 25, 2017 11:52 - CONCLUSION: 1. Moderate cerebral atrophy. 2. Old lacunar infarcts within the bilateral basal ganglia. 3. No acute infarct, acute hemorrhage, mass effect or extra axial fluid collections. Bret Calderón MD Physical Exam HEENT: Normocephalic; atraumatic; no jaundice. NECK: Neck is supple, tracheostomy CHEST: Scattered rhonchi CARDIAC: RRR, with no murmur gallop or rubs. ABDOMEN: Soft, nondistended, nontender; no hepatosplenomegaly; bowel sounds x 4. EXTREMITIES: No clubbing, cyanosis, or edema. (Sarah Claros) Assessment and Plan Plan ASSESSMENT: - GI bleed/ melena, drop in hgb- HH stable. GI consulted for drop in hgb and reported black stools. 03/27/17 hgb 6.8, s/p blood transfusion. He had EGD/PEG in November of 2016 and that showed mild gastritis, bx was benign. He is on Plavix, but this is on hold now. He had colonoscopy years ago. Denies hematemesis, or hematochezia. PPI, hemodynamically stable, no black stools today s/p EGD 03-31-17--> blood dee and hypopharynx, mass larynx likely cause bleeding, hiatal hernia. - Possible aspiration [id number]-[id number] on abx per attending. NPO per ST - History significant for Laryngeal cancer, s/p tracheostomy, s/p PEG, diabetes mellitus 2 chronic kidney disease stage IV, hyperlipidemia, history of MD 2012, history of PCI stent placement 2012, PAD , hypertension, PLAN: - NPO per ST - TF per nutrition - Cont. ppi - Monitor HH, transfuse as needed - Notify GI for active bleed - Cont. to hold Plavix - Supportive care Patient seen and examined by Dr. Cole and myself and this note is written on her behalf. (Sarah Claros) Sarah Claros Apr 01, 2017 16:21 Tamara Cole MD Apr 01, 2017 18:14
--- NOTE | 2017-04-01 17:28 | MB ---
cc: RENÉ CASTILLO MD DATE OF CONSULTATION 04/01/17 CHIEF COMPLAINT Laryngeal cancer. 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 He us being treated by multiple medical pains for his numerous medical problems including GI bleeding, infection and many other concerns. I have been asked to evaluate the status of his airway. On examination, his tracheotomy tube was in place, __ flexible fiberoptic laryngoscopy through the mouth. There was no fresh blood from the mouth going down to the tracheotomy tube. When I repositioned the fiberoptic laryngoscopy to the tracheotomy tube, the trachea as well as bilateral main bronchi showed no fresh blood whatsoever in those areas as well. Thus, there is no blood at all currently coming from the laryngeal site into the airway actively, ASSESSMENT History of recent GI bleed but appears to have no active laryngeal bleeding currently. PLAN Continue as per home team with their level of care. Thank you for this consultation, René Castillo MD [facility] /3:22 PM /4:58 PM
[2017-04-01] MEDS: AZITHROMYCIN INJ 500 MG in SODIUM CHLOR 0.9% 250 ML INJ 250 ML IV SCH (17:47)
--- NOTE | 2017-04-01 19:49 | HHI.PR ---
Subjective Remarks 66 YOWm with Laryngeal ca s/p radiation, trach, GIB,DVT has small amount of trach bloody secretion No fever Tolerates TF No more bloody secretions at BS Objective Vital Signs Vital Signs Date Time Temp Pulse Resp B/P Pulse Ox O2 Delivery O2 Flow Rate FiO2 04/01/17 16:13 97.9 99 18 155/85 95 04/01/17 12:11 97.9 89 18 142/69 97 04/01/17 09:32 98 T-piece 35 04/01/17 08:16 97.8 98 18 155/89 98 04/01/17 04:00 97.9 98 18 153/88 98 04/01/17 00:00 97.6 90 18 144/73 99 03/31/17 20:00 97.7 111 18 156/81 94 I/O 03/31/17 03/31/17 03/31/17 04/01/17 04/01/17 04/01/17 06:59 14:59 22:59 06:59 14:59 22:59 Intake Total 670 ml 150 ml 950 ml Output Total 50 ml 50 ml Balance 670 ml 150 ml -50 ml 900 ml Intake IV Total 620 ml 650 ml Tube Feeding 50 ml 120 ml Tube Irrigant 180 ml Other 150 ml Output Urine Total 50 ml 50 ml # Voids 3 4 3 # Bowel Movements 1 2 1 Result Diagram: 04/01/17 0950 04/01/17 0950 Objective Remarks GENERAL: MBMN WM, NAD SKIN: Warm and dry. HEAD: Normocephalic. EYES: No scleral icterus. No injection or drainage. NECK: Supple, trachea midline. No JVD or lymphadenopathy. has trach CARDIOVASCULAR: Regular rate and rhythm without murmurs, gallops, or rubs. RESPIRATORY: Breath sounds equal bilaterally. No accessory muscle use. GASTROINTESTINAL: Abdomen soft, non-tender, nondistended. has PEG tube MUSCULOSKELETAL: No cyanosis, or edema. BACK: Nontender without obvious deformity. No CVA tenderness. A/P Assessment and Plan RF,S/P Trach Hemoptysis mild DVT laryngeal ca, s/p radiation PLAN Cont Abx Trach care monitor hemoptysis Aerosol nebs TF DW pt and his at BS Real Coffey MD Apr 01, 2017 19:49
[2017-04-02] VITALS (9 sets, daily range): BP systolic 133–153; BP diastolic 65–81; PULSE 90–101; RESP 16–20; TEMP 97.2–98.1; O2SAT 93–100
[2017-04-02] MEDS: CHLORHEXIDINE GLUCONATE 2 % 1 PACK (2 CLOTHS) TOP SCH (04:00)
[2017-04-02] MEDS: RESP: ALBUTEROL 2.5 MG/IPRATROPIUM 0.5 MG NEB (PRN) INH (04:15)
[2017-04-02] MEDS: PIPERACIL-TAZO 3.375 GM PREMIX 50 ML IV SCH ×3 (05:53→17:46)
[2017-04-02] MEDS: INSULIN ASPART SUPPLEMENTAL SCALE SQ SCH ×4 (06:22→21:00)
[2017-04-02] MEDS: HYOSCYAMINE 0.125 MG TAB G-TUBE SCH ×2 (08:59→21:13)
[2017-04-02] MEDS: ALPRAZolam 0.25 MG TAB PO PRN ×3 (08:59→18:05)
[2017-04-02] MEDS: METOPROLOL TARTRATE 50 MG TAB G-TUBE SCH ×2 (08:59→21:13)
[2017-04-02] MEDS: CILOSTAZOL 50 MG TAB G-TUBE SCH ×2 (08:59→21:13)
[2017-04-02] MEDS: IRON SUCROSE INJ 200 MG in SODIUM CHLORIDE 0.9% INJ 100 ML IV SCH (08:59)
[2017-04-02] MEDS: CHLORHEXIDINE 0.12% (ORAL KIT) 15 ML CUP MT SCH ×2 (09:01→20:00)
[2017-04-02] MEDS: ACETAMINOPHEN/HYDROcodone 325 MG/10 MG TAB PO PRN ×3 (09:01→18:05)
[2017-04-02] MEDS: SODIUM CHLORIDE 0.9% FLUSH 10 ML FLUSH IV FLUSH SCH ×2 (09:01→21:12)
[2017-04-02] MEDS: PANTOPRAZOLE INJ 80 MG in SODIUM CHLORIDE 0.9% INJ 100 ML IV SCH (09:02)
[2017-04-02 09:55] LABS: AUTOMATED NEUTROPHIL # 11.3 TH/MM3 (1.8-7.7); BASOPHIL % 0.2 % (0.0-2.0); HEMATOCRIT 32.5 % (39.0-51.0); LYMPH % 4.2 % (9.0-44.0); LYMPHOCYTE # 0.5 TH/MM3 (1.0-4.8); MEAN CELL VOLUME 83.7 FL (80.0-100.0); MEAN CORPUSCULAR HEMOGLOBIN 26.8 PG (27.0-34.0); MEAN CORPUSCULAR HGB CONC 32.1 % (32.0-36.0); NEUT % 89.6 % (16.0-70.0); PLATELET COUNT 296 TH/MM3 (150-450); RED BLOOD COUNT 3.88 MIL/MM3 (4.50-5.90); RED CELL DISTRIBUTION WIDTH 17.7 % (11.6-17.2); WHITE BLOOD COUNT 12.6 TH/MM3 (4.0-11.0)
[2017-04-02 10:02] LABS: HEMO FLAGS AUTO DIFF
[2017-04-02 10:04] LABS: BICARBONATE 19.4 MEQ/L (21.0-32.0); POTASSIUM 3.2 MEQ/L (3.5-5.1)
[2017-04-02 10:58] LABS: METAMYELOCYTES 1 % (0-1); MYELOCYTES 4 % (0-0); NEUTROPHIL # MANUAL DIFF 11.3 TH/MM3 (1.8-7.7); POLYS (SEG NEUTROPHILS) 85 % (16-70); WBC DIFF SAMPLE 100
[2017-04-02] MEDS: SODIUM CHLOR 0.9% 1000 ML INJ 1,000 ML IV SCH ×2 (10:58→12:36)
[2017-04-02 10:59] LABS: PLATELET ESTIMATE SMEAR NORMAL (NORMAL); PLATELET MORPHOLOGY ENLARGED (NORMAL); SCAN/DIFF FINAL DIFF MANUAL
[2017-04-02] MEDS ORDERED: POTASSIUM CHLORIDE 25 MEQ EFFERVESCENT TAB PEG ONE (11:30)
--- NOTE | 2017-04-02 13:56 | PD.ONC.PN ---
Subjective Subjective Remarks Pt resting in bed in no distress. Reports that he feels "so-so" Objective Data Date Time Temp Pulse Resp B/P Pulse Ox O2 Delivery O2 Flow Rate FiO2 04/02/17 11:45 97.8 91 16 141/69 99 04/02/17 08:10 97.5 94 16 133/69 100 04/02/17 04:16 99 T-piece 6.00 35 04/02/17 04:00 97.3 99 20 153/81 99 04/02/17 00:00 97.2 90 20 140/80 96 04/01/17 22:18 95 T-piece 6.00 35 04/01/17 20:00 97.4 105 20 145/82 96 04/01/17 16:13 97.9 99 18 155/85 95 04/02/17 04/02/17 04/02/17 07:00 15:00 23:00 Intake Total 1020 ml 871 ml Balance 1020 ml 871 ml Result Diagram: 04/02/17 0850 04/02/17 0850 Laboratory Results Laboratory Tests Test 04/02/17 08:50 White Blood Count 12.6 TH/MM3 Red Blood Count 3.88 MIL/MM3 Hemoglobin 10.4 GM/DL Hematocrit 32.5 % Mean Corpuscular Volume 83.7 FL Mean Corpuscular Hemoglobin 26.8 PG Mean Corpuscular Hemoglobin 32.1 % Concent Red Cell Distribution Width 17.7 % Platelet Count 296 TH/MM3 Mean Platelet Volume 9.4 FL Neutrophils (%) (Auto) 89.6 % Lymphocytes (%) (Auto) 4.2 % Monocytes (%) (Auto) 6.0 % Eosinophils (%) (Auto) 0.0 % Basophils (%) (Auto) 0.2 % Neutrophils # (Auto) 11.3 TH/MM3 Lymphocytes # (Auto) 0.5 TH/MM3 Monocytes # (Auto) 0.8 TH/MM3 Eosinophils # (Auto) 0.0 TH/MM3 Basophils # (Auto) 0.0 TH/MM3 CBC Comment AUTO DIFF Differential Total Cells 100 Counted Neutrophils % (Manual) 85 % Lymphocytes % 4 % Monocytes % 6 % Neutrophils # (Manual) 11.3 TH/MM3 Metamyelocytes 1 % Myelocytes 4 % Differential Comment FINAL DIFF MANUAL Platelet Estimate NORMAL Platelet Morphology Comment ENLARGED Red Cell Morphology Comment NORMAL Sodium Level 147 MEQ/L Potassium Level 3.2 MEQ/L Chloride Level 116 MEQ/L Carbon Dioxide Level 19.4 MEQ/L Anion Gap 12 MEQ/L Blood Urea Nitrogen 36 MG/DL Creatinine 2.18 MG/DL Estimat Glomerular Filtration 30 ML/MIN Rate Random Glucose 173 MG/DL Calcium Level 8.9 MG/DL Random Vancomycin Level 24.0 COMMENT Administered Medications Medications (Trade) Dose Ordered Sig/Alea Route PRN Reason Start Time Stop Time Status Last Admin Dose Admin Sodium Chloride (NS 1000 ml Inj) 1,000 ml @ 42 mls/hr [id number] IV 03/25/17 14:31 04/02/17 10:58 Sodium Chloride (NS Flush) 2 ml BID IV FLUSH 03/25/17 21:00 04/02/17 09:01 Acetaminophen (Tylenol) 650 mg Q6H PRN PO PAIN 1-10 AND/OR FEVER >101F 03/25/17 14:45 03/28/17 04:48 Heparin Sodium (Porcine) (Heparin Inj) 5,000 units Q12H SQ 03/25/17 16:00 Hold 03/27/17 15:07 Chlorhexidine Gluconate (Chlorhexidine 2% Cloth) Taper DAILY@04 TOP 03/26/17 04:00 03/22/18 03:59 03/27/17 02:59 Senna/Docusate Sodium (Genoveva-Colace) 1 tab BID PO 03/25/17 21:00 Hold 03/28/17 08:32 Chlorhexidine Gluconate 15 ml 15 ml BID@08,20 MT 03/25/17 20:00 04/02/17 09:01 Piperacillin Sod/ Tazobactam Sod 50 ml @ 100 mls/hr Q6H IV 03/25/17 17:00 04/02/17 10:54 Azithromycin/ Sodium Chloride (Zithromax Inj/ NS 250 ml Inj) 250 ml @ 250 mls/hr Q24H IV 03/25/17 15:00 04/01/17 17:47 Cilostazol (Pletal) 50 mg BID G-TUBE 03/26/17 09:00 04/02/17 08:59 Clopidogrel Bisulfate (Plavix) 75 mg DAILY G-TUBE 03/26/17 09:00 Hold 03/27/17 09:38 Hyoscyamine Sulfate (Levsin) 0.125 mg BID G-TUBE 03/26/17 09:00 04/02/17 08:59 Metoprolol Tartrate (Lopressor) 50 mg BID G-TUBE 03/26/17 09:00 04/02/17 08:59 Alprazolam (Xanax) 0.25 mg Q8H PRN PO ANXIETY 03/26/17 17:00 04/02/17 08:59 Haloperidol Lactate (Haldol Inj) 2 mg Q4H PRN IV SEE LABEL COMMENTS 03/27/17 16:30 04/01/17 22:08 Acetaminophen/ Hydrocodone Bitart 1 tab 1 tab Q4H PRN PO PAIN SCALE 7 TO 10 03/27/17 23:15 04/02/17 09:01 Vancomycin HCl 1250 mg/Sodium Chloride 262.5 ml @ 250 mls/hr Q24H IV 03/28/17 17:00 Hold 03/31/17 18:08 Iron Sucrose/ Sodium Chloride (Venofer Inj/NS Inj) 110 ml @ 110 mls/hr DAILY IV 04/02/17 09:00 04/04/17 09:59 04/02/17 08:59 Objective Remarks GENERAL: Chronically ill appearing male resting in bed in no distress. SKIN: Warm and dry. HEAD: Normocephalic. EYES: No injection or drainage. NECK: Supple, trachea midline. on 6L O2 via t-piece. CARDIOVASCULAR: Regular rate and rhythm RESPIRATORY: occasional rhonchi. diminished at bases. GASTROINTESTINAL: Abdomen soft, non-tender, nondistended. EXTREMITIES: No cyanosis. NEUROLOGICAL: awake and alert. Assessment/Plan Problem List: (1) Oropharyngeal cancer Status: Acute Plan: --palliative care following --patient with poor performance status. --family wanting to pursue aggressive care --on tube feeds (2) DVT (deep venous thrombosis) Status: Acute Plan: +deep vein thrombosis in the right posterior tibial vein. His anticoagulation is now on hold. Plavix has been discontinued because of acute drop in hemoglobin and possibility of GI bleeding. --on Pletal. (3) Normocytic anemia Status: Acute Plan: --GI following --s/p EGD 03/31--showed blood in hypo and oropharynx --s/p pRBC transfusion --B12 WNL --low iron and TIBC (4) Sepsis Status: Acute Plan: --on multiple antibiotics --++aspiration pneumonia and sepsis. --BC no growth --sputum cx + MRSA Assessment 66y/o male with recurrent head and neck cancer admitted with aspiration pneumonia and sepsis. h/o Recurrent head and neck cancer. Diabetes type 2. Chronic kidney disease, stage IV. Hyperlipidemia. History of CA 2012. History of PCI and stent placement. Peripheral arterial disease. Hypertension. Plan 1. Pt starting radiation tomorrow at 12pm. 2. Monitor for bleeding 3. Continue supportive care with PT 4. Monitor CBC Discussed with RN Attending Statement The exam, history, and the medical decision-making described in the above note were completed with the assistance of the mid-level provider. I reviewed and agree with the findings presented. I attest that I had a [id number] encounter with the patient on the same day, and personally performed and documented my assessment and findings in the medical record. XRT in am Outpatient cetuximab continue supportive care Problem Qualifiers (1) DVT (deep venous thrombosis): Qualified Code: I82.441 - Deep vein thrombosis (DVT) of tibial vein of right lower extremity, unspecified chronicity Jennifer Leonard Apr 02, 2017 13:56 Perico Melchor MD Apr 03, 2017 00:24
--- NOTE | 2017-04-02 14:31 | HHI.PR ---
Subjective Remarks Follow up pneumonia, laryngeal mass. The patient states that he feels okay today. He was placed back in restraints. He denies chest pain or dyspnea. Denies nausea or vomiting. Objective Vitals Vital Signs Date Time Temp Pulse Resp B/P Pulse Ox O2 Delivery O2 Flow Rate FiO2 04/02/17 11:45 97.8 91 16 141/69 99 04/02/17 10:45 100 T-piece 6.00 35 04/02/17 08:10 97.5 94 16 133/69 100 04/02/17 04:16 99 T-piece 6.00 35 04/02/17 04:00 97.3 99 20 153/81 99 04/02/17 00:00 97.2 90 20 140/80 96 04/01/17 22:18 95 T-piece 6.00 35 04/01/17 20:00 97.4 105 20 145/82 96 04/01/17 16:13 97.9 99 18 155/85 95 I/O 04/01/17 04/01/17 04/01/17 04/02/17 04/02/17 04/02/17 07:00 15:00 23:00 07:00 15:00 23:00 Intake Total 950 ml 1020 ml 871 ml Output Total 100 ml 0 ml Balance 850 ml 0 ml 1020 ml 871 ml Intake IV Total 650 ml 720 ml 407 ml Tube Feeding 120 ml 120 ml 404 ml Tube Irrigant 180 ml 180 ml 60 ml Output Urine Total 100 ml 0 ml # Voids 5 2 2 # Bowel Movements 2 1 0 Result Diagram: 04/02/17 0850 04/02/17 0850 Imaging Last Impressions Chest X-Ray 03/30/17 0000 Signed Impressions: Service Date/Time: Thursday, March 30, 2017 10:48 - CONCLUSION: Increasing interstitial edema. Bobby Coto MD FACR Upper Extremity Ultrasound 03/25/17 0000 Signed Impressions: Service Date/Time: Saturday, March 25, 2017 16:31 - CONCLUSION: 1. Occlusive thrombus in the right cephalic vein. 2. No deep venous thrombosis left arm. Dakota Suarez MD Lung Scan-V Nuclear Medicine 03/25/17 0000 Signed Impressions: Service Date/Time: Saturday, March 25, 2017 13:39 - CONCLUSION: No scintigraphic findings of pulmonary embolus. Jacky Guadarrama MD Lower Extremity Ultrasound 03/25/17 0000 Signed Impressions: Service Date/Time: Saturday, March 25, 2017 16:03 - CONCLUSION: Probable deep venous thrombosis within the right posterior tibial veins. Bret Calderón MD Head CT 03/25/17 0000 Signed Impressions: Service Date/Time: Saturday, March 25, 2017 11:52 - CONCLUSION: 1. Moderate cerebral atrophy. 2. Old lacunar infarcts within the bilateral basal ganglia. 3. No acute infarct, acute hemorrhage, mass effect or extra axial fluid collections. Bret Calderón MD Objective Remarks General: Chronically ill appearing elderly male in no acute distress. Tracheostomy. In soft restraints. Heart: Regular rate and rhythm. No murmur. Lungs: Scattered rhonchi. Breathing is nonlabored. Abdomen: Soft, nontender, nondistended. Extremities: No lower extremity edema. Psych: Alert, nonverbal due to tracheostomy. 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 Pneumonia, MRSA, ?aspiration: Continue antibiotics (vancomycin, Zosyn), bronchodilators, supplemental oxygen. Recheck CXR. Appreciate pulmonology recommendations. Patient unable to complete speech therapy eval due to the size and location of the laryngeal mass. 2. Severe sepsis secondary to pneumonia: Sepsis resolved. 3. Agitation: Continue Seroquel. Remains intermittently confused and agitated. Restraints as needed. Haldol as needed. 4. Coronary artery disease: Currently asymptomatic. Continue home medications. 5. GI bleed: Appreciate GI recommendations. S/P EGD. Bleeding from laryngeal mass has resolved. 6. Head and neck cancer: Appreciate oncology recommendations. Tube feeds per PEG tube. Tracheostomy in place. Starting radiation therapy tomorrow. Appreciate ENT recommendations. 7. Chronic kidney disease stage IV: Stable. 8. Acute blood loss anemia: On EGD, bleeding appears to be from laryngeal mass. Hemoglobin improved following transfusion. 9. DVT: Ultrasound shows "probable DVT" in right posterior tibial veins. Plavix and heparin are on hold secondary to GI bleed. Continue cilostazol. 10. Poor prognosis: Appreciate palliative care recommendations. Patient would be hospice appropriate, however patient and his family at this time desire aggressive care. Problem Qualifiers (1) DVT (deep venous thrombosis): Qualified Code: I82.441 - Deep vein thrombosis (DVT) of tibial vein of right lower extremity, unspecified chronicity Kermit Mendoza MD Apr 02, 2017 14:31
--- NOTE | 2017-04-02 14:54 | HHI.GIFU ---
Subjective Remarks Resting in bed. C/O nausea. No vomiting per nurse. No signs of bleeding. Mild epigastric tenderness on exam. No bm today. (Suzi Lora) Objective Vitals I&O Vital Signs Date Time Temp Pulse Resp B/P Pulse Ox O2 Delivery O2 Flow Rate FiO2 04/02/17 11:45 97.8 91 16 141/69 99 04/02/17 10:45 100 T-piece 6.00 35 04/02/17 08:10 97.5 94 16 133/69 100 04/02/17 04:16 99 T-piece 6.00 35 04/02/17 04:00 97.3 99 20 153/81 99 04/02/17 00:00 97.2 90 20 140/80 96 04/01/17 22:18 95 T-piece 6.00 35 04/01/17 20:00 97.4 105 20 145/82 96 04/01/17 16:13 97.9 99 18 155/85 95 I/O 04/01/17 04/01/17 04/01/17 04/02/17 04/02/17 04/02/17 07:00 15:00 23:00 07:00 15:00 23:00 Intake Total 950 ml 1020 ml 871 ml Output Total 100 ml 0 ml Balance 850 ml 0 ml 1020 ml 871 ml Intake IV Total 650 ml 720 ml 407 ml Tube Feeding 120 ml 120 ml 404 ml Tube Irrigant 180 ml 180 ml 60 ml Output Urine Total 100 ml 0 ml # Voids 5 2 2 # Bowel Movements 2 1 0 Laboratory Laboratory Tests Test 04/02/17 08:50 White Blood Count 12.6 Red Blood Count 3.88 Hemoglobin 10.4 Hematocrit 32.5 Mean Corpuscular Volume 83.7 Mean Corpuscular Hemoglobin 26.8 Mean Corpuscular Hemoglobin 32.1 Concent Red Cell Distribution Width 17.7 Platelet Count 296 Mean Platelet Volume 9.4 Neutrophils (%) (Auto) 89.6 Lymphocytes (%) (Auto) 4.2 Monocytes (%) (Auto) 6.0 Eosinophils (%) (Auto) 0.0 Basophils (%) (Auto) 0.2 Neutrophils # (Auto) 11.3 Lymphocytes # (Auto) 0.5 Monocytes # (Auto) 0.8 Eosinophils # (Auto) 0.0 Basophils # (Auto) 0.0 CBC Comment AUTO DIFF Differential Total Cells 100 Counted Neutrophils % (Manual) 85 Lymphocytes % 4 Monocytes % 6 Neutrophils # (Manual) 11.3 Metamyelocytes 1 Myelocytes 4 Differential Comment FINAL DIFF MANUAL Platelet Estimate NORMAL Platelet Morphology Comment ENLARGED Red Cell Morphology Comment NORMAL Sodium Level 147 Potassium Level 3.2 Chloride Level 116 Carbon Dioxide Level 19.4 Anion Gap 12 Blood Urea Nitrogen 36 Creatinine 2.18 Estimat Glomerular Filtration 30 Rate Random Glucose 173 Calcium Level 8.9 Random Vancomycin Level 24.0 Imaging Last Impressions Chest X-Ray 03/30/17 0000 Signed Impressions: Service Date/Time: Thursday, March 30, 2017 10:48 - CONCLUSION: Increasing interstitial edema. Bobby Coto MD FACR Upper Extremity Ultrasound 03/25/17 0000 Signed Impressions: Service Date/Time: Saturday, March 25, 2017 16:31 - CONCLUSION: 1. Occlusive thrombus in the right cephalic vein. 2. No deep venous thrombosis left arm. Dakota Suarez MD Lung Scan- Nuclear Medicine 03/25/17 0000 Signed Impressions: Service Date/Time: Saturday, March 25, 2017 13:39 - CONCLUSION: No scintigraphic findings of pulmonary embolus. Jacky Guadarrama MD Lower Extremity Ultrasound 03/25/17 0000 Signed Impressions: Service Date/Time: Saturday, March 25, 2017 16:03 - CONCLUSION: Probable deep venous thrombosis within the right posterior tibial veins. Bret Calderón MD Head CT 03/25/17 0000 Signed Impressions: Service Date/Time: Saturday, March 25, 2017 11:52 - CONCLUSION: 1. Moderate cerebral atrophy. 2. Old lacunar infarcts within the bilateral basal ganglia. 3. No acute infarct, acute hemorrhage, mass effect or extra axial fluid collections. Bret Calderón MD Physical Exam HEENT: Normocephalic; atraumatic; no jaundice. NECK: Neck is supple, tracheostomy CHEST: Scattered rhonchi CARDIAC: RRR ABDOMEN: Soft, nondistended, mild epigastric tenderness; no hepatosplenomegaly ; bowel sounds x 4. EXTREMITIES: No clubbing, cyanosis, or edema. Awake, follows commands and answers questions appropriately (Suzi Lora) Assessment and Plan Plan ASSESSMENT: - Upper GIB. S/P EGD/PEG in November of 2016 and that showed mild gastritis, bx was benign. Last colonoscopy was years ago. S/P EGD (03/31/17)-----> 1. Scope changed to pediatric scope as regular scope could not be passed peg in stomach, blood in dee and hypopharynx mass larynx, compressing upper esophagus, most likely cause of bleeding 2. Retroflexed views revealed a hiatal hernia. No active bleeding. Does complain of nausea, although no vomiting per nurse, mild epigastric pain. TF is going at 10cc/hr. S/P ENT evaluation----> no active laryngeal bleeding currently, management per attending. Plan is to start radiation tomorrow. No active bleeding. HH stable 10.4/32.5. - Anemia secondary to acute blood loss. HH stable 10.4/32.5. - Nausea, epigastric pain. PPI - MRSA PNA, ? Aspiration. NPO. Nebs, abx per attending. - DVT right lower extremity. Plavix on hold secondary to GI bleeding. - Recurrent head and neck cancer. S/P ENT evaluation. Oncology and radiation team following, plan is to start rdx tomorrow. s/p trach and peg. - DM, CKD, hyperlipidemia, [place], PAD, HTN per attending. PLAN: - NPO per ST - TF per nutrition, increase to GR - Cont. PPI - Zofran prn - Monitor HH - Transfuse as needed - Notify GI for active bleed - Okay to resume anticoagulation from GI standpoint - Supportive care - Patient seen and examined by Dr. Cole and myself and this note is written on her behalf. (Suzi Lora) Suzi Lora Apr 02, 2017 14:54 Tamara Cole MD Apr 02, 2017 18:23
[2017-04-02] MEDS: AZITHROMYCIN INJ 500 MG in SODIUM CHLOR 0.9% 250 ML INJ 250 ML IV SCH (15:23)
[2017-04-02] MEDS: ONDANSETRON HCL 4 MG/2 ML VIAL IV PUSH PRN (15:27)
--- NOTE | 2017-04-02 15:43 | HHI.HCPN ---
Reason for visit a. To assist with evaluation and management of symptoms including:dyspnea, fatigued b. To assist medical decision maker(s) with: better understanding of current medical conditions; weighing benefits/burdens of medical treatment options; making medical treatment decisions. Subjective/Interval History Patient seen to follow-up on comfort, goals. Callback received from daughter Antonietta before my arrival to the unit to see patient. Review with her current diagnostics, recent EGD, treatments and place , pending start radiation tomorrow, patient recent clinical assessments, fluctuating mental status. She has questions and concerns about resuming anticoagulation to get him therapeutic from the DVT standpoint and get him discharged home, she also asked about getting him home on vancomycin with home health and peaks, levels drawn in the home setting. Advised that that may be a possibility though patient not actually ready for discharge at this time, review potential risks with resumption of anticoagulation. Gently explore with her patient debilitated state, recent rehabilitationshe endorses that they understand at some point hospice will be necessary, but that right now the patient still wants to try whatever palliative treatments are offered, and that the family is supportive of this. They wish he had an option for palliative care in the outpatient setting. Goals remain fairly aggressive. All questions answered to the best of my ability, provided palliative contact information. Patient H&H stable 10.4/32.5. Renal function BUN 36/creatinine 2.18. Speech therapy evaluation pending. Status post ENT evaluation no active bleeding noted in trachea, laryngeal areas. Pt seen in room, no family present. Nurses present, indicates will be back later this afternoon. Patient is back in restraintsnursing indicates that he attempted to pull out tracheostomy yesterday. She indicates he has been cooperative for the most part but then at other times gets restless, and does not follow requests to not interrupt medical treatment. He is alert, non-systolic questions indicates that he is feeling so-so. He is pointing that he wants to write. Assist him with a marker and a piece of paper he writes "post box ", a box around this, and then writes "needed." He appears to be confused.Not really clear what he is indicating. Breathing comfortably on T piece. Explore with him hospitalization , the plan is to start radiation therapy tomorrow. He nods his head no to this. It is not clear that he understands. No apparent distress or discomfort. History per initial palliative consultation by Dr. 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 Patient was diagnosed with malignancy in early 2016. At that time he presented with dysphagia and imaging revealing mass centered in the supraglottic tissue that was 4.2 x 3.6 cm. The margins were ill -defined involvement. According, epiglottic fold, right side of the epiglottis. Patient was seen by [facility] in [place] and was deemed not to be a candidate for chemotherapy for her surgery. Patient was treated with a single modality radiation treatment and had good response to treatment and subsequent imaging did not show any residual disease. He was followed closely with periodic follow-ups and CT scan. Patient recently presented to oncology clinic with complaints of dysphagia feeling lump in his throat. CT scan was ordered but due to patient's insurance issue it was delayed. He was admitted to [facility] in [place] with significant dysphagia and a CT of the neck was ordered, on 02/17/2017 showing a mass in the right larynx region. There is destruction of the right side of the thyroid cartilage. It was displacement of the airway at the level of the legs throughout the left. Patient wanted to leave the hospital traveled to [place] and his plan was to seek treatment in the [facility]. However patient became more more dyspneic and was brought to the hospital on . He was seen by exhaust emissions automotive technician and was in the ICU.CT neck reveals markedly narrowed upper airway. Complicating features include full anticoagulation with warfarin and plavix antiplatelet therapy. 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 Below the cancer and above the innominate artery is a window suitable for emergency percutaneous tracheostomy once coagulopathy is reversed. Eventually bleeding subsided, and the patient underwent surgery for trach for airway protection, 02/23/2017. Patient also has a PEG tube placement subsequently as well. Patient was transferred out of the ICU and on the Hospitalist service 02/24/2017. Patient seen by oncology 02/25/2017, and at that time oncologist note that patient is in the difficult situation. Patient has multiple comorbidities including chronic kidney disease, history of coronary artery disease. Patient upon oncologist evaluation was quite deconditioned. He is not candidate for surgery, or chemotherapy. Any salvage chemotherapy will be given only if performance status improves. Oncologist noted that he would discuss with radiation oncology about any palliative radiation treatment although he states "I am less optimistic as the mass involved the same field where radiation was given previously." Oncology recommends focus on nutrition and physical therapy. Other course of complication included pt Halicated and patient pulled out his T- piece. Pt was evaluated by Dr. Corona due to subtotal occulsion of the right internal carotid arter (seen by vasclar surgeon and not a candidate for invasive procedure). There were patient has questionable altered mental status. Psychiatry was consulted to evaluate the patient capacity to make medical decision. Course of hospitalization also complicated by Klebsiella pneumonia in which he was treated with Ceftriaxone and later by [facility]. Pt later went to rehabilitation on 03/03/3017. Palliative Care was consulted to review goals of care during his rehabilitation. At the time of family meeting. Goals of care were established. They have the understanding that pt's cancer is terminal, and that treatment offered is palliative, not curative. Their hope is that pt's functional status improve with rehab, and he will be able to undergo palliative treatment/immunglobulin therapy etc. Code status was reviewed and they maintained Full Code. Pt eventually was discharged from rehab Pt returned to the ER 03/22 due to pt coughing trach out. It was quickly replaced, and pt discharged. Pt returned 03/25/2017 due to respiratory distress. Pt was placed on 35% trach collar. Pt has leukocytosis and pt started on abx. Sputum culture came back with MRSA pneumonia. Pt also complicated with GI bleed, with anemia. GI has been consulted. Pt also has DVT on right posterior tibial veins and occlusive thrombus in the right cephalic vein. Palliative care consulted again to review goals of care. I spoke with pt, who is in restraints as he tried to pull out iv again. Pt was not at bedside. Pt himself seems to recognize me but like last time have difficulty speaking. He mouth words. I told him I just don't think functionally he would rebound to get any further treatment and to reconsider hospice. He was tearful. I also spoke with pt's daughters health care surrogate daughters: Antonietta and Triny. Understandably family is struggling with pt's decline. Antonietta had many questions in which I answered. I reinforce, that pt can get antibiotics, depending on the type on hospice. In terms of anticoagulation, she wish for pt to be place back on coumadine, but I did say, given pt's GI bleed and anemia, that may be difficult. She asked "Can they just cauterize it and that place him back on?" Again reviewed pt is in a tough situation in terms of balancing hemorrhage and anticoagulation. Family still struggle. Goals of care is as follows: They wish pt to have medical care maximize, specifically pneumonia treated, and have pt anticoagulated, GI bleed stop. After that they will again consider hospice. They have spoken to hospice in the past and have toured the [facility]. Advance Directives Health Care Surrogate: Copy in medical record Objective Vital Signs Date Time Temp Pulse Resp B/P Pulse Ox O2 Delivery O2 Flow Rate FiO2 04/02/17 11:45 97.8 91 16 141/69 99 04/02/17 10:45 100 T-piece 6.00 35 04/02/17 08:10 97.5 94 16 133/69 100 04/02/17 04:16 99 T-piece 6.00 35 04/02/17 04:00 97.3 99 20 153/81 99 04/02/17 00:00 97.2 90 20 140/80 96 04/01/17 22:18 95 T-piece 6.00 35 04/01/17 20:00 97.4 105 20 145/82 96 04/01/17 16:13 97.9 99 18 155/85 95 Intake & Output 04/02/17 04/02/17 06:59 18:59 Intake Total 1020 ml 871 ml Output Total 0 ml Balance 1020 ml 871 ml Intake IV Total 720 ml 407 ml Tube Feeding 120 ml 404 ml Tube Irrigant 180 ml 60 ml Output Urine Total 0 ml # Voids 2 # Bowel Movements 0 Physical Exam CONSTITUTIONAL/GENERAL: This is thin, chronically ill-appearing patient, no distress TUBES/LINES/DRAINS: PEG tube, PIV left upper extremity, external catheter SKIN: No jaundice, rashes, or lesions. NECK: Trachea midline. No blood observed during tracheostomy site CARDIOVASCULAR: Regular rate and rhythm without murmurs. No JVD. Peripheral pulses symmetric. RESPIRATORY/CHEST: Symmetric, unlabored respirations, Via T piece 35% FiO2 . Clear to auscultation. Breath sounds equal bilaterally. GASTROINTESTINAL: Abdomen soft, non-tender, nondistended. Bowel sounds normoactive. Tube feedings infusing via PEG tube. GENITOURINARY: Without palpable bladder distension. External catheter NEUROLOGICAL: Awake and alert, nonverbal due to trach. Nods to yes/no questions and mouths words, and gestures. Appears somewhat confused, writes to communicate but not able to understand what he is communicating. Moves all 4 extremities. Follows commands. PSYCHIATRIC: No obvious anxiety/depression. . Diagnostic Tests Laboratory Laboratory Tests Test 03/31/17 03/31/17 04/01/17 04/01/17 15:43 16:40 08:30 09:50 White Blood Count 14.8 TH/MM3 11.3 TH/MM3 (4.0-11.0) (4.0-11.0) Red Blood Count 3.74 MIL/MM3 3.82 MIL/MM3 (4.50-5.90) (4.50-5.90) Hemoglobin 10.6 GM/DL 10.2 GM/DL (13.0-17.0) (13.0-17.0) Hematocrit 31.2 % 32.1 % (39.0-51.0) (39.0-51.0) Mean Corpuscular Volume 83.4 FL 84.0 FL (80.0-100.0) (80.0-100.0) Mean Corpuscular Hemoglobin 28.2 PG 26.6 PG (27.0-34.0) (27.0-34.0) Mean Corpuscular Hemoglobin 33.8 % 31.7 % Concent (32.0-36.0) (32.0-36.0) Red Cell Distribution Width 18.2 % 18.0 % (11.6-17.2) (11.6-17.2) Platelet Count 314 TH/MM3 303 TH/MM3 (150-450) (150-450) Mean Platelet Volume 9.0 FL 8.7 FL (7.0-11.0) (7.0-11.0) Neutrophils (%) (Auto) 88.2 % 87.4 % (16.0-70.0) (16.0-70.0) Lymphocytes (%) (Auto) 4.2 % 5.0 % (9.0-44.0) (9.0-44.0) Monocytes (%) (Auto) 7.3 % (0.0-8.0) 7.3 % (0.0-8.0) Eosinophils (%) (Auto) 0.2 % (0.0-4.0) 0.1 % (0.0-4.0) Basophils (%) (Auto) 0.1 % (0.0-2.0) 0.2 % (0.0-2.0) Neutrophils # (Auto) 13.1 TH/MM3 9.9 TH/MM3 (1.8-7.7) (1.8-7.7) Lymphocytes # (Auto) 0.6 TH/MM3 0.6 TH/MM3 (1.0-4.8) (1.0-4.8) Monocytes # (Auto) 1.1 TH/MM3 0.8 TH/MM3 (0-0.9) (0-0.9) Eosinophils # (Auto) 0.0 TH/MM3 0.0 TH/MM3 (0-0.4) (0-0.4) Basophils # (Auto) 0.0 TH/MM3 0.0 TH/MM3 (0-0.2) (0-0.2) CBC Comment AUTO DIFF AUTO DIFF Differential Total Cells 100 Counted Neutrophils % (Manual) 83 % (16-70) Band Neutrophils % 3 % (0-6) Lymphocytes % 8 % (9-44) Monocytes % 6 % (0-8) Neutrophils # (Manual) 12.7 TH/MM3 (1.8-7.7) Differential Comment FINAL DIFF AUTO DIFF MANUAL CONFIRMED Platelet Estimate NORMAL NORMAL (NORMAL) (NORMAL) Platelet Morphology Comment NORMAL NORMAL (NORMAL) (NORMAL) Ovalocytes 1+ (NORMAL) Sodium Level 146 MEQ/L 147 MEQ/L (136-145) (136-145) Potassium Level 3.5 MEQ/L 3.4 MEQ/L (3.5-5.1) (3.5-5.1) Chloride Level 114 MEQ/L 115 MEQ/L (98-107) (98-107) Carbon Dioxide Level 17.6 MEQ/L 18.9 MEQ/L (21.0-32.0) (21.0-32.0) Anion Gap 14 MEQ/L (5-15) 13 MEQ/L (5-15) Blood Urea Nitrogen 33 MG/DL (7-18) 34 MG/DL (7-18) Creatinine 1.98 MG/DL 2.03 MG/DL (0.60-1.30) (0.60-1.30) Estimat Glomerular Filtration 34 ML/MIN (>89) 33 ML/MIN (>89) Rate Random Glucose 167 MG/DL 167 MG/DL (74-106) (74-106) Calcium Level 8.9 MG/DL 8.5 MG/DL (8.5-10.1) (8.5-10.1) Iron Level 59 MCG/DL (65-175) Total Iron Binding Capacity 154 MCG/DL (250-450) Percent Iron Saturation 38.3 % (20-50) Transferrin 110 MG/DL (200-360) Vitamin B12 Level 1213 PG/ML (193-986) Vancomycin Level Trough 23.8 MCG/ML (5.0-10.0) Random Vancomycin Level 30.7 COMMENT Red Cell Morphology Comment NORMAL (NORMAL) Test 04/02/17 08:50 White Blood Count 12.6 TH/MM3 (4.0-11.0) Red Blood Count 3.88 MIL/MM3 (4.50-5.90) Hemoglobin 10.4 GM/DL (13.0-17.0) Hematocrit 32.5 % (39.0-51.0) Mean Corpuscular Volume 83.7 FL (80.0-100.0) Mean Corpuscular Hemoglobin 26.8 PG (27.0-34.0) Mean Corpuscular Hemoglobin 32.1 % Concent (32.0-36.0) Red Cell Distribution Width 17.7 % (11.6-17.2) Platelet Count 296 TH/MM3 (150-450) Mean Platelet Volume 9.4 FL (7.0-11.0) Neutrophils (%) (Auto) 89.6 % (16.0-70.0) Lymphocytes (%) (Auto) 4.2 % (9.0-44.0) Monocytes (%) (Auto) 6.0 % (0.0-8.0) Eosinophils (%) (Auto) 0.0 % (0.0-4.0) Basophils (%) (Auto) 0.2 % (0.0-2.0) Neutrophils # (Auto) 11.3 TH/MM3 (1.8-7.7) Lymphocytes # (Auto) 0.5 TH/MM3 (1.0-4.8) Monocytes # (Auto) 0.8 TH/MM3 (0-0.9) Eosinophils # (Auto) 0.0 TH/MM3 (0-0.4) Basophils # (Auto) 0.0 TH/MM3 (0-0.2) CBC Comment AUTO DIFF Differential Total Cells 100 Counted Neutrophils % (Manual) 85 % (16-70) Lymphocytes % 4 % (9-44) Monocytes % 6 % (0-8) Neutrophils # (Manual) 11.3 TH/MM3 (1.8-7.7) Metamyelocytes 1 % (0-1) Myelocytes 4 % (0-0) Differential Comment FINAL DIFF MANUAL Platelet Estimate NORMAL (NORMAL) Platelet Morphology Comment ENLARGED (NORMAL) Red Cell Morphology Comment NORMAL (NORMAL) Sodium Level 147 MEQ/L (136-145) Potassium Level 3.2 MEQ/L (3.5-5.1) Chloride Level 116 MEQ/L (98-107) Carbon Dioxide Level 19.4 MEQ/L (21.0-32.0) Anion Gap 12 MEQ/L (5-15) Blood Urea Nitrogen 36 MG/DL (7-18) Creatinine 2.18 MG/DL (0.60-1.30) Estimat Glomerular Filtration 30 ML/MIN (>89) Rate Random Glucose 173 MG/DL (74-106) Calcium Level 8.9 MG/DL (8.5-10.1) Random Vancomycin Level 24.0 COMMENT Result Diagram: 04/02/17 0850 04/02/17 0850 Imaging Last Impressions Chest X-Ray 03/30/17 0000 Signed Impressions: Service Date/Time: Thursday, March 30, 2017 10:48 - CONCLUSION: Increasing interstitial edema. Bobby Coto MD FACR Upper Extremity Ultrasound 03/25/17 0000 Signed Impressions: Service Date/Time: Saturday, March 25, 2017 16:31 - CONCLUSION: 1. Occlusive thrombus in the right cephalic vein. 2. No deep venous thrombosis left arm. Dakota Suarez MD Lung Scan-V Nuclear Medicine 7/25/17 0000 Signed Impressions: Service Date/Time: Saturday, March 25, 2017 13:39 - CONCLUSION: No scintigraphic findings of pulmonary embolus. Jacky Guadarrama MD Lower Extremity Ultrasound 03/25/17 0000 Signed Impressions: Service Date/Time: Saturday, March 25, 2017 16:03 - CONCLUSION: Probable deep venous thrombosis within the right posterior tibial veins. Bret Calderón MD Head CT 03/25/17 0000 Signed Impressions: Service Date/Time: Saturday, March 25, 2017 11:52 - CONCLUSION: 1. Moderate cerebral atrophy. 2. Old lacunar infarcts within the bilateral basal ganglia. 3. No acute infarct, acute hemorrhage, mass effect or extra axial fluid collections. 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 she is a nurse working in [employer].Triny Mccartylisandrocandis (daughter), works in [place]. Spiritual: Legal:Antonietta Yuan. Primary HCS [phone] or [phone] Triny Fortune (2nd [facility]) [phone] or [phone] or [phone] Ethical issues impacting care: Important Contacts Health Care Surrogate(s): Antonietta Yuan. 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 Not a cadidiate for chemo or surgery. May be a candidate for radiation, although oncology had previously stated less optomistic as the mass involves the same filed where radiation was given previously. Pt also have underlying CAD, CKD, occluded right carotid artery, deconditioning, manutrition, pneumonia, and confusion at times.. He is s/p peg and trach. Has DVT, GI bleed. Would be appropriate fo hospice if goals of care were to transition to comfort measures only. Code Status: Full Code Plan * capacity- mental status fluctuates, but may be improving. Suggest all decisions be joint decision in medical decision making. * Code: full. * SYMPTOMS == dypnea/ weakness- cancer burden- no new med rec.currently breathing comfortably on T piece. * GOALS : Per initial palliative consultation: Patient and Family have been struggling with patient decline. Palliative previously discussed hospice with them, and apparently they have in the past met with hospice. They wish to maximize current medical treatments, may consider discussing hospice more at a later point. Are.I spoke with pt, who is in restraints as he tried to pull out iv again. Pt was not at bedside. Pt himself seems to recognize me but like last time have difficulty speaking. He mouth words. I told him I just don 't think functionally he would rebound to get any further treatment and to reconsider hospice. 04/02 spoke with daughter Antonietta who his primary healthcare surrogate. Goals remain aggressive. She is hopeful they can get the patient home soon with home health. * Palliative care will continue to follow during hospital course as condition evolves, to assist patient/decision-maker with understanding of medical conditions, weighing benefits/burdens of treatment options, for clarification of goals of treatment. Additionally will assist with any symptoms of palliative concern Attestation To help prompt me to consider important information that might be impacting today's encounter and assessment, information from prior notes written by myself or my colleagues may have been "brought forward" into today's note. My signature on this note, however, is an attestation that I personally performed the exam, history, and/or decision-making noted today, and, unless otherwise indicated, the interactions with patient, family, and staff as well as the review of records all occurred today. I also attest that the listed assessment and stated plan reflect my best clinical judgment today based on the combination of historical information, prior notes, and today's exam/ interactions. When time spent is documented, it refers only to time spent today by the signer, or if indicated, combined time spent today by collaborating physician/nurse practitioner. Maria Eugenia Barnes Apr 02, 2017 15:43
--- NOTE | 2017-04-02 20:13 | HHI.PR ---
Subjective Remarks 66 YOWm with Laryngeal ca s/p radiation, trach, GIB,DVT has small amount of trach bloody secretion No fever Tolerates TF No more bloody secretions Objective Vital Signs Vital Signs Date Time Temp Pulse Resp B/P Pulse Ox O2 Delivery O2 Flow Rate FiO2 04/02/17 16:10 98.1 93 16 135/65 97 04/02/17 11:45 97.8 91 16 141/69 99 04/02/17 10:45 100 T-piece 6.00 35 04/02/17 08:10 97.5 94 16 133/69 100 04/02/17 04:16 99 T-piece 6.00 35 04/02/17 04:00 97.3 99 20 153/81 99 04/02/17 00:00 97.2 90 20 140/80 96 04/01/17 22:18 95 T-piece 6.00 35 I/O 04/01/17 04/01/17 04/01/17 04/02/17 04/02/17 04/02/17 07:00 15:00 23:00 07:00 15:00 23:00 Intake Total 950 ml 1020 ml 871 ml Output Total 100 ml 0 ml Balance 850 ml 0 ml 1020 ml 871 ml Intake IV Total 650 ml 720 ml 407 ml Tube Feeding 120 ml 120 ml 404 ml Tube Irrigant 180 ml 180 ml 60 ml Output Urine Total 100 ml 0 ml # Voids 5 2 2 1 # Bowel Movements 2 1 0 1 Result Diagram: 04/02/17 0850 04/02/17 0850 Objective Remarks GENERAL: MBMN WM, NAD SKIN: Warm and dry. HEAD: Normocephalic. EYES: No scleral icterus. No injection or drainage. NECK: Supple, trachea midline. No JVD or lymphadenopathy. has trach CARDIOVASCULAR: Regular rate and rhythm without murmurs, gallops, or rubs. RESPIRATORY: Breath sounds equal bilaterally. No accessory muscle use. GASTROINTESTINAL: Abdomen soft, non-tender, nondistended. has PEG tube MUSCULOSKELETAL: No cyanosis, or edema. BACK: Nontender without obvious deformity. No CVA tenderness. A/P Assessment and Plan RF,S/P Trach Hemoptysis mild DVT laryngeal ca, s/p radiation PLAN Cont Abx Trach care monitor hemoptysis Aerosol nebs TF Palliative care evaluating Real Coffey MD Apr 02, 2017 20:13
[2017-04-02] MEDS: PANTOPRAZOLE SODIUM 40 MG VIAL IV PUSH SCH (21:13)
[2017-04-03] VITALS (9 sets, daily range): BP systolic 119–178; BP diastolic 77–94; PULSE 67–102; RESP 16–20; TEMP 97.3–98.9; O2SAT 93–100
[2017-04-03] MEDS: PIPERACIL-TAZO 3.375 GM PREMIX 50 ML IV SCH ×4 (00:02→15:52)
[2017-04-03] MEDS: ALPRAZolam 0.25 MG TAB PO PRN (02:29)
[2017-04-03] MEDS: CHLORHEXIDINE GLUCONATE 2 % 1 PACK (2 CLOTHS) TOP SCH (04:00)
[2017-04-03] MEDS: INSULIN ASPART SUPPLEMENTAL SCALE SQ SCH ×4 (06:22→21:52)
[2017-04-03] MEDS: CHLORHEXIDINE 0.12% (ORAL KIT) 15 ML CUP MT SCH (08:00)
[2017-04-03] MEDS: IRON SUCROSE INJ 200 MG in SODIUM CHLORIDE 0.9% INJ 100 ML IV SCH (08:39)
[2017-04-03] MEDS: CLOPIDOGREL 75 MG TAB G-TUBE SCH (08:39)
[2017-04-03] MEDS: HYOSCYAMINE 0.125 MG TAB G-TUBE SCH ×2 (08:39→21:48)
[2017-04-03] MEDS: SODIUM CHLORIDE 0.9% FLUSH 10 ML FLUSH IV FLUSH SCH ×2 (08:39→21:48)
[2017-04-03] MEDS: CILOSTAZOL 50 MG TAB G-TUBE SCH ×2 (08:39→21:49)
[2017-04-03] MEDS: PANTOPRAZOLE SODIUM 40 MG VIAL IV PUSH SCH ×2 (08:39→21:48)
[2017-04-03] MEDS: METOPROLOL TARTRATE 50 MG TAB G-TUBE SCH ×2 (08:39→21:48)
[2017-04-03 08:52] LABS: AUTOMATED NEUTROPHIL # 11.5 TH/MM3 (1.8-7.7); BASOPHIL % 0.2 % (0.0-2.0); EOSINOPHIL % 0.2 % (0.0-4.0); HEMATOCRIT 33.3 % (39.0-51.0); LYMPH % 3.2 % (9.0-44.0); LYMPHOCYTE # 0.4 TH/MM3 (1.0-4.8); MEAN CELL VOLUME 85.9 FL (80.0-100.0); MEAN CORPUSCULAR HEMOGLOBIN 26.6 PG (27.0-34.0); MONO % 4.9 % (0.0-8.0); NEUT % 91.5 % (16.0-70.0); PLATELET COUNT 270 TH/MM3 (150-450); RED BLOOD COUNT 3.88 MIL/MM3 (4.50-5.90); RED CELL DISTRIBUTION WIDTH 18.7 % (11.6-17.2); WHITE BLOOD COUNT 12.6 TH/MM3 (4.0-11.0)
[2017-04-03 08:59] LABS: HEMO FLAGS AUTO DIFF
[2017-04-03 09:20] LABS: BICARBONATE 19.5 MEQ/L (21.0-32.0); POTASSIUM 3.5 MEQ/L (3.5-5.1)
[2017-04-03 11:23] LABS: BANDS 4 % (0-6); METAMYELOCYTES 3 % (0-1); MYELOCYTES 5 % (0-0); POLYS (SEG NEUTROPHILS) 83 % (16-70); ROULEAUX PRESENT (NORMAL); WBC DIFF SAMPLE 100
[2017-04-03 11:24] LABS: PLATELET ESTIMATE SMEAR NORMAL (NORMAL); PLATELET MORPHOLOGY NORMAL (NORMAL); SCAN/DIFF FINAL DIFF MANUAL
[2017-04-03] MEDS: SODIUM CHLOR 0.9% 1000 ML INJ 1,000 ML IV SCH (12:22)
[2017-04-03] MEDS: AZITHROMYCIN INJ 500 MG in SODIUM CHLOR 0.9% 250 ML INJ 250 ML IV SCH (14:03)
--- NOTE | 2017-04-03 14:16 | PD.ONC.PN ---
Subjective Subjective Remarks Pt sitting up on side of bed with physical therapy in no distress He states he was unable to tolerate XRT today Objective Data Date Time Temp Pulse Resp B/P Pulse Ox O2 Delivery O2 Flow Rate FiO2 04/03/17 12:00 97.5 90 20 151/79 95 04/03/17 08:00 97.7 100 19 139/78 96 04/03/17 04:00 97.8 102 18 178/94 99 04/03/17 01:15 100 T-piece 6.00 35 04/03/17 00:00 98.3 67 16 119/77 97 04/02/17 23:06 98 T-piece 6.00 35 04/02/17 20:00 97.7 101 18 139/77 93 04/02/17 16:10 98.1 93 16 135/65 97 04/03/17 04/03/17 04/03/17 07:00 15:00 23:00 Output Total 900 ml Balance -900 ml Result Diagram: 04/03/17 0807 04/03/17 0807 Laboratory Results Laboratory Tests Test 04/03/17 08:07 White Blood Count 12.6 TH/MM3 Red Blood Count 3.88 MIL/MM3 Hemoglobin 10.3 GM/DL Hematocrit 33.3 % Mean Corpuscular Volume 85.9 FL Mean Corpuscular Hemoglobin 26.6 PG Mean Corpuscular Hemoglobin 31.0 % Concent Red Cell Distribution Width 18.7 % Platelet Count 270 TH/MM3 Mean Platelet Volume 8.9 FL Neutrophils (%) (Auto) 91.5 % Lymphocytes (%) (Auto) 3.2 % Monocytes (%) (Auto) 4.9 % Eosinophils (%) (Auto) 0.2 % Basophils (%) (Auto) 0.2 % Neutrophils # (Auto) 11.5 TH/MM3 Lymphocytes # (Auto) 0.4 TH/MM3 Monocytes # (Auto) 0.6 TH/MM3 Eosinophils # (Auto) 0.0 TH/MM3 Basophils # (Auto) 0.0 TH/MM3 CBC Comment AUTO DIFF Differential Total Cells 100 Counted Neutrophils % (Manual) 83 % Band Neutrophils % 4 % Lymphocytes % 1 % Monocytes % 4 % Neutrophils # (Manual) 12.0 TH/MM3 Metamyelocytes 3 % Myelocytes 5 % Differential Comment FINAL DIFF MANUAL Platelet Estimate NORMAL Platelet Morphology Comment NORMAL Rouleau PRESENT Sodium Level 149 MEQ/L Potassium Level 3.5 MEQ/L Chloride Level 117 MEQ/L Carbon Dioxide Level 19.5 MEQ/L Anion Gap 13 MEQ/L Blood Urea Nitrogen 36 MG/DL Creatinine 2.16 MG/DL Estimat Glomerular Filtration 31 ML/MIN Rate Random Glucose 178 MG/DL Calcium Level 8.6 MG/DL Random Vancomycin Level 19.9 COMMENT Administered Medications Medications (Trade) Dose Ordered Sig/Alea Route PRN Reason Start Time Stop Time Status Last Admin Dose Admin Sodium Chloride (NS 1000 ml Inj) 1,000 ml @ 42 mls/hr [id number] IV 03/25/17 14:31 04/02/17 10:58 Sodium Chloride (NS Flush) 2 ml BID IV FLUSH 03/25/17 21:00 04/02/17 21:12 Acetaminophen (Tylenol) 650 mg Q6H PRN PO PAIN 1-10 AND/OR FEVER >101F 03/25/17 14:45 03/28/17 04:48 Heparin Sodium (Porcine) (Heparin Inj) 5,000 units Q12H SQ 03/25/17 16:00 03/27/17 15:07 Chlorhexidine Gluconate (Chlorhexidine 2% Cloth) Taper DAILY@04 TOP 03/26/17 04:00 03/22/18 03:59 03/27/17 02:59 Senna/Docusate Sodium (Genoveva-Colace) 1 tab BID PO 03/25/17 21:00 Hold 03/28/17 08:32 Chlorhexidine Gluconate 15 ml 15 ml BID@08,20 MT 03/25/17 20:00 04/02/17 09:01 Piperacillin Sod/ Tazobactam Sod 50 ml @ 100 mls/hr Q6H IV 03/25/17 17:00 04/03/17 10:45 Azithromycin/ Sodium Chloride (Zithromax Inj/ NS 250 ml Inj) 250 ml @ 250 mls/hr Q24H IV 03/25/17 15:00 04/03/17 14:03 Cilostazol (Pletal) 50 mg BID G-TUBE 03/26/17 09:00 04/03/17 08:39 Clopidogrel Bisulfate (Plavix) 75 mg DAILY G-TUBE 03/26/17 09:00 04/03/17 08:39 Hyoscyamine Sulfate (Levsin) 0.125 mg BID G-TUBE 03/26/17 09:00 04/03/17 08:39 Metoprolol Tartrate (Lopressor) 50 mg BID G-TUBE 03/26/17 09:00 04/03/17 08:39 Alprazolam (Xanax) 0.25 mg Q8H PRN PO ANXIETY 03/26/17 17:00 04/03/17 02:29 Haloperidol Lactate (Haldol Inj) 2 mg Q4H PRN IV SEE LABEL COMMENTS 03/27/17 16:30 04/01/17 22:08 Acetaminophen/ Hydrocodone Bitart 1 tab 1 tab Q4H PRN PO PAIN SCALE 7 TO 10 03/27/17 23:15 04/02/17 18:05 Iron Sucrose/ Sodium Chloride (Venofer Inj/NS Inj) 110 ml @ 110 mls/hr DAILY IV 04/02/17 09:00 04/04/17 09:59 04/03/17 08:39 Pantoprazole Sodium (Protonix Inj) 40 mg Q12H IV PUSH 04/02/17 21:00 04/03/17 08:39 Ondansetron HCl (Zofran Inj) 4 mg Q6HR PRN IV PUSH n/v 04/02/17 14:45 04/02/17 15:27 Objective Remarks GENERAL: Chronically ill appearing male resting in bed in no distress. SKIN: Warm and dry. HEAD: Normocephalic. EYES: No injection or drainage. NECK: Supple, trachea midline. On 6L O2 via t-piece. CARDIOVASCULAR: Regular rate and rhythm RESPIRATORY: Scattered rhonchi posteriorly. GASTROINTESTINAL: Abdomen soft, non-tender, nondistended. EXTREMITIES: No cyanosis. No edema NEUROLOGICAL: Moving all extremities. Assessment/Plan Problem List: (1) Oropharyngeal cancer Status: Acute Plan: --palliative care following --patient with poor performance status. --family wanting to pursue aggressive care --on tube feeds (2) DVT (deep venous thrombosis) Status: Acute Plan: +deep vein thrombosis in the right posterior tibial vein. --on Pletal and Plavix. (3) Normocytic anemia Status: Acute Plan: --GI following --s/p EGD 03/31--showed blood in hypo and oropharynx --s/p pRBC transfusion --B12 WNL --low iron and TIBC (4) Sepsis Status: Acute Plan: --on multiple antibiotics --++aspiration pneumonia and sepsis. --BC no growth --sputum cx + MRSA Assessment 66y/o male with recurrent head and neck cancer admitted with aspiration pneumonia and sepsis. h/o Recurrent head and neck cancer. Diabetes type 2. Chronic kidney disease, stage IV. Hyperlipidemia. History of [place] 2012. History of PCI and stent placement. Peripheral arterial disease. Hypertension. Plan 1. Discussed with radiation tech; The patient was unable to tolerate radiation today due to shortness of breath with laying flat. 2. The patient's prognosis is overall poor, however he wants aggressive therapy. 3. We will plan to give chemotherapy from an outpatient standpoint. Discussed with RN Attending Statement The exam, history, and the medical decision-making described in the above note were completed with the assistance of the mid-level provider. I reviewed and agree with the findings presented. I attest that I had a [id number] encounter with the patient on the same day, and personally performed and documented my assessment and findings in the medical record. Unable to tolerate radiation due to agitation case discussed with Dr. Cruz again today Will start Eliquis 5mg PO BID for recent DVT stop plavix if he has increased oozing from trach site, will stop Cilostazol d/w rn Problem Qualifiers (1) DVT (deep venous thrombosis): Qualified Code: I82.441 - Deep vein thrombosis (DVT) of tibial vein of right lower extremity, unspecified chronicity Jennifer Leonard Apr 03, 2017 14:16 Perico Melchor MD Apr 03, 2017 23:34
--- NOTE | 2017-04-03 15:31 | HHI.PR ---
Subjective Remarks Follow up pneumonia, laryngeal mass. Patient did not tolerate radiation therapy this morning. He states that he feels better this afternoon. Dyspnea is stable. No complaints of pain at this time. Objective Vitals Vital Signs Date Time Temp Pulse Resp B/P Pulse Ox O2 Delivery O2 Flow Rate FiO2 04/03/17 12:00 97.5 90 20 151/79 95 04/03/17 08:00 97.7 100 19 139/78 96 04/03/17 04:00 97.8 102 18 178/94 99 04/03/17 01:15 100 T-piece 6.00 35 04/03/17 00:00 98.3 67 16 119/77 97 04/02/17 23:06 98 T-piece 6.00 35 04/02/17 20:00 97.7 101 18 139/77 93 04/02/17 16:10 98.1 93 16 135/65 97 I/O 04/02/17 04/02/17 04/02/17 04/03/17 04/03/17 04/03/17 07:00 15:00 23:00 07:00 15:00 23:00 Intake Total 1020 ml 871 ml Output Total 900 ml Balance 1020 ml 871 ml -900 ml Intake IV Total 720 ml 407 ml Tube Feeding 120 ml 404 ml Tube Irrigant 180 ml 60 ml Output Urine Total 900 ml # Voids 2 1 # Bowel Movements 1 2 Result Diagram: 04/03/17 0807 04/03/17 0807 Imaging Last Impressions Chest X-Ray 03/30/17 0000 Signed Impressions: Service Date/Time: Thursday, March 30, 2017 10:48 - CONCLUSION: Increasing interstitial edema. Bobby Coto MD FACR Upper Extremity Ultrasound 03/25/17 0000 Signed Impressions: Service Date/Time: Saturday, March 25, 2017 16:31 - CONCLUSION: 1. Occlusive thrombus in the right cephalic vein. 2. No deep venous thrombosis left arm. Dakota Suarez MD Lung Scan-V Nuclear Medicine 03/25/17 0000 Signed Impressions: Service Date/Time: Saturday, March 25, 2017 13:39 - CONCLUSION: No scintigraphic findings of pulmonary embolus. Jacky Guadarrama MD Lower Extremity Ultrasound 03/25/17 0000 Signed Impressions: Service Date/Time: Saturday, March 25, 2017 16:03 - CONCLUSION: Probable deep venous thrombosis within the right posterior tibial veins. Bret Calderón MD Head CT 03/25/17 0000 Signed Impressions: Service Date/Time: Saturday, March 25, 2017 11:52 - CONCLUSION: 1. Moderate cerebral atrophy. 2. Old lacunar infarcts within the bilateral basal ganglia. 3. No acute infarct, acute hemorrhage, mass effect or extra axial fluid collections. Bret Calderón MD Objective Remarks General: Chronically ill appearing elderly male in no acute distress. Tracheostomy. Heart: Regular rate and rhythm. No murmur. Lungs: Scattered rhonchi. Breathing is nonlabored. Abdomen: Soft, nontender, nondistended. Extremities: No lower extremity edema. Psych: Alert, nonverbal due to tracheostomy. 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 Pneumonia, MRSA, ?aspiration: Continue antibiotics (vancomycin, Zosyn), bronchodilators, supplemental oxygen. Recheck CXR. Appreciate pulmonology recommendations. Patient unable to complete speech therapy eval due to the size and location of the laryngeal mass. 2. Severe sepsis secondary to pneumonia: Sepsis resolved. 3. Agitation: Continue Seroquel. Remains intermittently confused and agitated. Restraints as needed. Haldol as needed. 4. Coronary artery disease: Currently asymptomatic. Continue home medications. 5. GI bleed: Appreciate GI recommendations. S/P EGD. Bleeding from laryngeal mass has resolved. OK with GI to restart anticoagulation. 6. Head and neck cancer: Appreciate oncology recommendations. Tube feeds per PEG tube. Tracheostomy in place. Starting radiation therapy tomorrow. Appreciate ENT recommendations. 7. Chronic kidney disease stage IV: Stable. 8. Acute blood loss anemia: On EGD, bleeding appears to be from laryngeal mass. Hemoglobin improved following transfusion. 9. DVT: Ultrasound shows "probable DVT" in right posterior tibial veins. Plavix and heparin restarted. I spoke with gabino Yusuf/onc DAIRY GRAZER, regarding need for more anticoagulation. She will discuss with Dr. Brink. 10. Poor prognosis: Appreciate palliative care recommendations. Patient would be hospice appropriate, however patient and his family at this time desire aggressive care. Problem Qualifiers (1) DVT (deep venous thrombosis): Qualified Code: I82.441 - Deep vein thrombosis (DVT) of tibial vein of right lower extremity, unspecified chronicity Kermit Mendoza MD Apr 03, 2017 15:31
--- NOTE | 2017-04-03 15:35 | HHI.GIFU ---
Subjective Remarks Resting in bed. No distress. Requesting ice chips. Explained to patient and that it is not safe for po (including ice chips) at this time per ST. No bleeding. No longer having nausea or abdominal pain. Suplena at 15cc/hr (Suzi Lora) Objective Vitals I&O Vital Signs Date Time Temp Pulse Resp B/P Pulse Ox O2 Delivery O2 Flow Rate FiO2 04/03/17 12:00 97.5 90 20 151/79 95 04/03/17 08:00 97.7 100 19 139/78 96 04/03/17 04:00 97.8 102 18 178/94 99 04/03/17 01:15 100 T-piece 6.00 35 04/03/17 00:00 98.3 67 16 119/77 97 04/02/17 23:06 98 T-piece 6.00 35 04/02/17 20:00 97.7 101 18 139/77 93 04/02/17 16:10 98.1 93 16 135/65 97 I/O 04/02/17 04/02/17 04/02/17 04/03/17 04/03/17 04/03/17 06:59 14:59 22:59 06:59 14:59 22:59 Intake Total 1020 ml 871 ml Output Total 900 ml Balance 1020 ml 871 ml -900 ml Intake IV Total 720 ml 407 ml Tube Feeding 120 ml 404 ml Tube Irrigant 180 ml 60 ml Output Urine Total 900 ml # Voids 2 1 # Bowel Movements 1 2 Laboratory Laboratory Tests Test 04/03/17 08:07 White Blood Count 12.6 Red Blood Count 3.88 Hemoglobin 10.3 Hematocrit 33.3 Mean Corpuscular Volume 85.9 Mean Corpuscular Hemoglobin 26.6 Mean Corpuscular Hemoglobin 31.0 Concent Red Cell Distribution Width 18.7 Platelet Count 270 Mean Platelet Volume 8.9 Neutrophils (%) (Auto) 91.5 Lymphocytes (%) (Auto) 3.2 Monocytes (%) (Auto) 4.9 Eosinophils (%) (Auto) 0.2 Basophils (%) (Auto) 0.2 Neutrophils # (Auto) 11.5 Lymphocytes # (Auto) 0.4 Monocytes # (Auto) 0.6 Eosinophils # (Auto) 0.0 Basophils # (Auto) 0.0 CBC Comment AUTO DIFF Differential Total Cells 100 Counted Neutrophils % (Manual) 83 Band Neutrophils % 4 Lymphocytes % 1 Monocytes % 4 Neutrophils # (Manual) 12.0 Metamyelocytes 3 Myelocytes 5 Differential Comment FINAL DIFF MANUAL Platelet Estimate NORMAL Platelet Morphology Comment NORMAL Rouleau PRESENT Sodium Level 149 Potassium Level 3.5 Chloride Level 117 Carbon Dioxide Level 19.5 Anion Gap 13 Blood Urea Nitrogen 36 Creatinine 2.16 Estimat Glomerular Filtration 31 Rate Random Glucose 178 Calcium Level 8.6 Random Vancomycin Level 19.9 Imaging Last Impressions Chest X-Ray 03/30/17 0000 Signed Impressions: Service Date/Time: Thursday, March 30, 2017 10:48 - CONCLUSION: Increasing interstitial edema. Bobby Coto MD FACR Upper Extremity Ultrasound 03/25/17 0000 Signed Impressions: Service Date/Time: Saturday, March 25, 2017 16:31 - CONCLUSION: 1. Occlusive thrombus in the right cephalic vein. 2. No deep venous thrombosis left arm. Dakota Suarez MD Lung Scan-V Nuclear Medicine 03/25/17 0000 Signed Impressions: Service Date/Time: Saturday, March 25, 2017 13:39 - CONCLUSION: No scintigraphic findings of pulmonary embolus. Jacky Guadarrama MD Lower Extremity Ultrasound 03/25/17 0000 Signed Impressions: Service Date/Time: Saturday, March 25, 2017 16:03 - CONCLUSION: Probable deep venous thrombosis within the right posterior tibial veins. Bret Calderón MD Head CT 03/25/17 0000 Signed Impressions: Service Date/Time: Saturday, March 25, 2017 11:52 - CONCLUSION: 1. Moderate cerebral atrophy. 2. Old lacunar infarcts within the bilateral basal ganglia. 3. No acute infarct, acute hemorrhage, mass effect or extra axial fluid collections. Bret Calderón MD Physical Exam HEENT: Normocephalic; atraumatic; no jaundice. NECK: Neck is supple, tracheostomy CHEST: Scattered rhonchi CARDIAC: RRR ABDOMEN: Soft, nondistended, mild epigastric tenderness; no hepatosplenomegaly ; bowel sounds x 4. EXTREMITIES: No clubbing, cyanosis, or edema. Awake, follows commands and answers questions appropriately (Suzi LoraP) Assessment and Plan Plan ASSESSMENT: - Upper GIB. S/P EGD/PEG in November of 2016 and that showed mild gastritis, bx was benign. Last colonoscopy was years ago. S/P EGD (03/31/17)-----> 1. Scope changed to pediatric scope as regular scope could not be passed peg in stomach, blood in dee and hypopharynx mass larynx, compressing upper esophagus, most likely cause of bleeding 2. Retroflexed views revealed a hiatal hernia. No active bleeding. Does complain of nausea, although no vomiting per nurse, mild epigastric pain. TF is going at 10cc/hr. S/P ENT evaluation----> no active laryngeal bleeding currently, management per attending. He did not tolerate radiation today secondary to not being able to lay flat. No active bleeding. HH stable 10.3/33.3. - Nausea, Abdominal pain. PPI, Zofran prn. RESOLVED. - Anemia secondary to acute blood loss. HH stable 10.3/33.3. - MRSA PNA, Suspected aspiration. NPO per ST recommendatons. Nebs, abx per attending. - DVT right lower extremity. Plavix/Heparin resumed. - Recurrent head and neck cancer. S/P ENT evaluation. Oncology and radiation team following, plan is to start rdx tomorrow. s/p trach and peg. - DM, CKD, hyperlipidemia, SD, PAD, HTN per attending. PLAN: - NPO per ST - TF per nutrition, increase to GR of 60 - Cont. PPI - Zofran prn - Monitor HH - Transfuse as needed - Notify GI for active bleed - Okay to resume anticoagulation from GI standpoint - GI will sign off, please reconsult as needed - Patient seen and examined by Dr. Cole and myself and this note is written on her behalf. (Suzi Lora) Suzi Lora Apr 03, 2017 15:34 Tamara Cole MD Apr 03, 2017 20:02
[2017-04-03] MEDS: HEPARIN SODIUM - SQ 10,000 UNITS/ML VIAL SQ SCH (15:53)
[2017-04-03] MEDS: 1/2 NS + KCL 20 MEQ INJ 1,000 ML IV SCH (15:53)
[2017-04-03] MEDS ORDERED: VANCOMYCIN 1,000 MG/NS 250 ML IV ONE ×2 (18:00)
[2017-04-03] MEDS: ACETAMINOPHEN/HYDROcodone 325 MG/10 MG TAB PO PRN (18:35)
--- NOTE | 2017-04-03 20:18 | HHI.PR ---
Subjective Remarks 66 YOWm with Laryngeal ca s/p radiation, trach, GIB,DVT has small amount of trach bloody secretion No fever Tolerates TF No more bloody secretions No new complaint Objective Vital Signs Vital Signs Date Time Temp Pulse Resp B/P Pulse Ox O2 Delivery O2 Flow Rate FiO2 04/03/17 16:00 98.4 95 20 154/82 100 04/03/17 15:38 98 T-piece 6.00 35 04/03/17 12:00 97.5 90 20 151/79 95 04/03/17 08:00 97.7 100 19 139/78 96 04/03/17 04:00 97.8 102 18 178/94 99 04/03/17 01:15 100 T-piece 6.00 35 04/03/17 00:00 98.3 67 16 119/77 97 04/02/17 23:06 98 T-piece 6.00 35 I/O 04/02/17 04/02/17 04/02/17 04/03/17 04/03/17 04/03/17 07:00 15:00 23:00 07:00 15:00 23:00 Intake Total 1020 ml 871 ml 0 ml Output Total 900 ml 4 ml Balance 1020 ml 871 ml -900 ml -4 ml Intake Oral 0 ml IV Total 720 ml 407 ml Tube Feeding 120 ml 404 ml Tube Irrigant 180 ml 60 ml Output Urine Total 900 ml 4 ml # Voids 2 1 # Bowel Movements 1 2 3 Result Diagram: 04/03/17 0807 04/03/17 0807 Objective Remarks GENERAL: MBMN WM, NAD SKIN: Warm and dry. HEAD: Normocephalic. EYES: No scleral icterus. No injection or drainage. NECK: Supple, trachea midline. No JVD or lymphadenopathy. has trach CARDIOVASCULAR: Regular rate and rhythm without murmurs, gallops, or rubs. RESPIRATORY: Breath sounds equal bilaterally. No accessory muscle use. GASTROINTESTINAL: Abdomen soft, non-tender, nondistended. has PEG tube MUSCULOSKELETAL: No cyanosis, or edema. BACK: Nontender without obvious deformity. No CVA tenderness. A/P Assessment and Plan RF,S/P Trach Hemoptysis mild DVT laryngeal ca, s/p radiation PLAN Cont Abx Trach care monitor hemoptysis Aerosol nebs TF Real Coffey MD Apr 03, 2017 20:18
[2017-04-03] MEDS: APIXABAN 5 MG TABLET PO SCH (21:48)
[2017-04-04] VITALS (9 sets, daily range): BP systolic 132–158; BP diastolic 75–94; PULSE 84–97; RESP 16–18; TEMP 97–98.7; O2SAT 91–100
[2017-04-04] MEDS: PIPERACIL-TAZO 3.375 GM PREMIX 50 ML IV SCH ×5 (00:24→22:15)
[2017-04-04] MEDS: ALPRAZolam 0.25 MG TAB PO PRN ×2 (00:24→15:17)
[2017-04-04] MEDS: ACETAMINOPHEN/HYDROcodone 325 MG/10 MG TAB PO PRN ×4 (02:36→23:03)
[2017-04-04] MEDS: CHLORHEXIDINE GLUCONATE 2 % 1 PACK (2 CLOTHS) TOP SCH (04:00)
[2017-04-04] MEDS: RESP: ALBUTEROL 2.5 MG/IPRATROPIUM 0.5 MG NEB (PRN) INH (04:11)
[2017-04-04] MEDS: HEPARIN SODIUM - SQ 10,000 UNITS/ML VIAL SQ SCH ×2 (04:21→16:13)
[2017-04-04] MEDS: INSULIN ASPART SUPPLEMENTAL SCALE SQ SCH ×3 (06:22→16:00)
[2017-04-04] MEDS: CHLORHEXIDINE 0.12% (ORAL KIT) 15 ML CUP MT SCH ×2 (07:24→20:00)
[2017-04-04] MEDS: IRON SUCROSE INJ 200 MG in SODIUM CHLORIDE 0.9% INJ 100 ML IV SCH (07:58)
[2017-04-04] MEDS: CILOSTAZOL 50 MG TAB G-TUBE SCH ×2 (08:00→22:15)
[2017-04-04] MEDS: APIXABAN 5 MG TABLET PO SCH ×2 (08:00→22:15)
[2017-04-04] MEDS: PANTOPRAZOLE SODIUM 40 MG VIAL IV PUSH SCH ×2 (08:00→22:15)
[2017-04-04] MEDS: METOPROLOL TARTRATE 50 MG TAB G-TUBE SCH ×2 (08:00→22:15)
[2017-04-04] MEDS: HYOSCYAMINE 0.125 MG TAB G-TUBE SCH ×2 (08:00→22:15)
[2017-04-04] MEDS: SODIUM CHLORIDE 0.9% FLUSH 10 ML FLUSH IV FLUSH SCH (08:00)
--- NOTE | 2017-04-04 10:53 | PD.ONC.PN ---
Subjective Subjective Remarks Afebrile overnight. Patient resting in room in nad. No family members at bedside. Objective Data Date Time Temp Pulse Resp B/P Pulse Ox O2 Delivery O2 Flow Rate FiO2 04/04/17 08:15 98.1 95 16 146/87 95 04/04/17 04:00 97.0 97 18 146/78 91 04/04/17 00:00 97.2 84 18 140/89 100 04/03/17 21:21 98 T-piece 6.00 04/03/17 19:30 97.3 95 18 156/81 94 04/03/17 16:00 98.4 95 20 154/82 100 04/03/17 15:38 98 T-piece 6.00 35 04/03/17 12:00 97.5 90 20 151/79 95 04/04/17 04/04/17 04/04/17 06:59 14:59 22:59 Output Total 700 ml Balance -700 ml Result Diagram: 04/03/17 0807 04/03/17 0807 Administered Medications Medications (Trade) Dose Ordered Sig/Alea Route PRN Reason Start Time Stop Time Status Last Admin Dose Admin Sodium Chloride (NS Flush) 2 ml BID IV FLUSH 03/25/17 21:00 04/03/17 21:48 Acetaminophen (Tylenol) 650 mg Q6H PRN PO PAIN 1-10 AND/OR FEVER >101F 03/25/17 14:45 03/28/17 04:48 Heparin Sodium (Porcine) (Heparin Inj) 5,000 units Q12H SQ 03/25/17 16:00 04/04/17 04:21 Chlorhexidine Gluconate (Chlorhexidine 2% Cloth) Taper DAILY@04 TOP 03/26/17 04:00 03/22/18 03:59 03/27/17 02:59 Senna/Docusate Sodium (Genoveva-Colace) 1 tab BID PO 03/25/17 21:00 Hold 03/28/17 08:32 Chlorhexidine Gluconate 15 ml 15 ml BID@08,20 MT 03/25/17 20:00 04/02/17 09:01 Piperacillin Sod/ Tazobactam Sod 50 ml @ 100 mls/hr Q6H IV 03/25/17 17:00 04/04/17 10:32 Azithromycin/ Sodium Chloride (Zithromax Inj/ NS 250 ml Inj) 250 ml @ 250 mls/hr Q24H IV 03/25/17 15:00 04/03/17 14:03 Cilostazol (Pletal) 50 mg BID G-TUBE 03/26/17 09:00 04/04/17 08:00 Hyoscyamine Sulfate (Levsin) 0.125 mg BID G-TUBE 03/26/17 09:00 04/04/17 08:00 Metoprolol Tartrate (Lopressor) 50 mg BID G-TUBE 03/26/17 09:00 04/04/17 08:00 Alprazolam (Xanax) 0.25 mg Q8H PRN PO ANXIETY 03/26/17 17:00 04/04/17 00:24 Haloperidol Lactate (Haldol Inj) 2 mg Q4H PRN IV SEE LABEL COMMENTS 03/27/17 16:30 04/01/17 22:08 Acetaminophen/ Hydrocodone Bitart (Neligh 10-325 Mg) 1 tab Q4H PRN PO PAIN SCALE 7 TO 10 03/27/17 23:15 04/04/17 02:36 Pantoprazole Sodium (Protonix Inj) 40 mg Q12H IV PUSH 04/02/17 21:00 04/04/17 08:00 Ondansetron HCl 4 mg 4 mg Q6HR PRN IV PUSH n/v 04/02/17 14:45 04/02/17 15:27 Potassium Chloride/Sodium Chloride (1/2 NS + KCl 20 Meq Inj) 1,000 ml @ 42 mls/hr [id number] IV 04/03/17 15:15 04/03/17 15:53 Apixaban (Eliquis) 5 mg BID PO 04/03/17 21:00 04/04/17 08:00 Objective Remarks GENERAL: Chronically ill male upright in bed in nad. on 6L O2 via t-piece SKIN: Warm and dry. HEAD: Normocephalic. EYES: No injection or drainage. NECK: Supple, trachea midline. CARDIOVASCULAR: Regular rate and rhythm RESPIRATORY: diminished at bases, scattered rhonchi GASTROINTESTINAL: Abdomen soft, non-tender, nondistended. Receiving TF via G- tube EXTREMITIES: No cyanosis. No edema NEUROLOGICAL: awake and alert. able to move extremities. Assessment/Plan Problem List: (1) Oropharyngeal cancer Status: Acute Plan: --palliative care following --patient with poor performance status. --family wanting to pursue aggressive care --on tube feeds w/ Suplena (2) DVT (deep venous thrombosis) Status: Acute Plan: +deep vein thrombosis in the right posterior tibial vein. --on Pletal and Eliquis (3) Normocytic anemia Status: Acute Plan: --GI following --s/p EGD 03/31--showed blood in hypo and oropharynx --s/p pRBC transfusion --B12 WNL --s/p iron infusion (4) Sepsis Status: Acute Plan: --on multiple antibiotics --++aspiration pneumonia and sepsis. --BC no growth --sputum cx + MRSA Assessment 66y/o male with recurrent head and neck cancer admitted with aspiration pneumonia and sepsis. h/o Recurrent head and neck cancer. Diabetes type 2. Chronic kidney disease, stage IV. Hyperlipidemia. History of [place] 2012. History of PCI and stent placement. Peripheral arterial disease. Hypertension. Plan 1. continue supportive care 2. monitor CBC Attending Statement The exam, history, and the medical decision-making described in the above note were completed with the assistance of the mid-level provider. I reviewed and agree with the findings presented. I attest that I had a [id number] encounter with the patient on the same day, and personally performed and documented my assessment and findings in the medical record. To begin erbitux when discharged from hospital Problem Qualifiers (1) DVT (deep venous thrombosis): Qualified Code: I82.441 - Deep vein thrombosis (DVT) of tibial vein of right lower extremity, unspecified chronicity Neeru Pritchett Apr 04, 2017 10:53 Perico Melchor MD Apr 05, 2017 00:45
[2017-04-04 12:31] LABS: AUTOMATED NEUTROPHIL # 14.5 TH/MM3 (1.8-7.7); BASOPHIL % 0.1 % (0.0-2.0); EOSINOPHIL % 0.1 % (0.0-4.0); HEMATOCRIT 33.9 % (39.0-51.0); HEMO FLAGS AUTO DIFF; LYMPH % 3.9 % (9.0-44.0); LYMPHOCYTE # 0.6 TH/MM3 (1.0-4.8); MEAN CELL VOLUME 87.3 FL (80.0-100.0); MEAN CORPUSCULAR HEMOGLOBIN 26.9 PG (27.0-34.0); MEAN CORPUSCULAR HGB CONC 30.8 % (32.0-36.0); MONO % 4.4 % (0.0-8.0); NEUT % 91.5 % (16.0-70.0); PLATELET COUNT 281 TH/MM3 (150-450); RED BLOOD COUNT 3.88 MIL/MM3 (4.50-5.90); RED CELL DISTRIBUTION WIDTH 19.2 % (11.6-17.2); WHITE BLOOD COUNT 15.8 TH/MM3 (4.0-11.0)
[2017-04-04 12:38] LABS: INTERNATIONAL NORMALIZED RATIO 1.4 RATIO; PROTHROMBIN TIME - PATIENT 15.7 SEC (9.8-11.6)
[2017-04-04 12:51] LABS: BICARBONATE 22.2 MEQ/L (21.0-32.0); POTASSIUM 3.4 MEQ/L (3.5-5.1)
[2017-04-04 13:04] LABS: METAMYELOCYTES 1 % (0-1); MYELOCYTES 1 % (0-0); NEUTROPHIL # MANUAL DIFF 14.5 TH/MM3 (1.8-7.7); POLYS (SEG NEUTROPHILS) 90 % (16-70); WBC DIFF SAMPLE 100
[2017-04-04 13:05] LABS: PLATELET ESTIMATE SMEAR NORMAL (NORMAL); PLATELET MORPHOLOGY NORMAL (NORMAL); SCAN/DIFF FINAL DIFF MANUAL
[2017-04-04] MEDS: AZITHROMYCIN INJ 500 MG in SODIUM CHLOR 0.9% 250 ML INJ 250 ML IV SCH (14:00)
[2017-04-04] MEDS: 1/2 NS + KCL 20 MEQ INJ 1,000 ML IV SCH (14:55)
--- NOTE | 2017-04-04 17:05 | HHI.PR ---
Subjective Remarks Written by Becki Hall, acting as scribe for Dr. Hopper on 04/04/17 at 16:55. Follow up pneumonia, laryngeal mass. Patient sitting up in bed appears to be in no acute distress. Offers no specific complaints at this time. Denies pain at this time. Objective Vitals Vital Signs Date Time Temp Pulse Resp B/P Pulse Ox O2 Delivery O2 Flow Rate FiO2 04/04/17 13:57 97.6 91 16 155/80 98 04/04/17 12:00 98.3 93 16 149/83 99 04/04/17 11:05 98 T-piece 35 04/04/17 08:15 98.1 95 16 146/87 95 04/04/17 04:00 97.0 97 18 146/78 91 04/04/17 00:00 97.2 84 18 140/89 100 04/03/17 21:21 98 T-piece 6.00 04/03/17 19:30 97.3 95 18 156/81 94 I/O 04/03/17 04/03/17 04/03/17 04/04/17 04/04/17 04/04/17 06:59 14:59 22:59 06:59 14:59 22:59 Intake Total 0 ml Output Total 900 ml 4 ml 700 ml Balance -900 ml -4 ml -700 ml Intake Oral 0 ml Output Urine Total 900 ml 4 ml 700 ml # Bowel Movements 2 3 Result Diagram: 04/04/17 1156 04/04/17 1156 Imaging Last Impressions Chest X-Ray 03/30/17 0000 Signed Impressions: Service Date/Time: Thursday, March 30, 2017 10:48 - CONCLUSION: Increasing interstitial edema. Bobby Coto MD FACR Upper Extremity Ultrasound 03/25/17 0000 Signed Impressions: Service Date/Time: Saturday, March 25, 2017 16:31 - CONCLUSION: 1. Occlusive thrombus in the right cephalic vein. 2. No deep venous thrombosis left arm. Dakota Suarez MD Lung Scan-V Nuclear Medicine 03/25/17 0000 Signed Impressions: Service Date/Time: Saturday, March 25, 2017 13:39 - CONCLUSION: No scintigraphic findings of pulmonary embolus. Jacky Guadarrama MD Lower Extremity Ultrasound 03/25/17 0000 Signed Impressions: Service Date/Time: Saturday, March 25, 2017 16:03 - CONCLUSION: Probable deep venous thrombosis within the right posterior tibial veins. Bret Calderón MD Head CT 03/25/17 0000 Signed Impressions: Service Date/Time: Saturday, March 25, 2017 11:52 - CONCLUSION: 1. Moderate cerebral atrophy. 2. Old lacunar infarcts within the bilateral basal ganglia. 3. No acute infarct, acute hemorrhage, mass effect or extra axial fluid collections. Bret Calderón MD Objective Remarks General: Chronically ill appearing elderly male in no acute distress. Tracheostomy. Heart: Regular rate and rhythm. No murmur. Lungs: Scattered rhonchi. Breathing is nonlabored. Abdomen: Soft, nontender, nondistended. Extremities: No lower extremity edema. Psych: Alert, nonverbal due to tracheostomy. 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 Status: Acute (3) Head ache ICD Code: R51 Status: Acute (4) Head and neck malignancy ICD Code: C76.0 Status: Acute (5) Pneumonia ICD Code: J18.9 Status: Acute (6) Severe sepsis ICD Code: A41.9 Status: Resolved (7) CKD (chronic kidney disease), stage IV ICD Code: N18.4 Status: Chronic (8) CAD (coronary artery disease) ICD Code: I25.10 Status: Chronic (9) Hypertension ICD Code: I10 Status: Acute (10) Hyperlipidemia ICD Code: E78.5 Status: Acute (11) Anemia ICD Code: D64.9 Status: Acute (12) GI bleed ICD Code: K92.2 Status: Acute Assessment and Plan 1. Pneumonia, MRSA, ?aspiration: Continue antibiotics (vancomycin, azithromycin and Zosyn), bronchodilators, supplemental oxygen. Appreciate pulmonology recommendations. Patient unable to complete speech therapy eval due to the size and location of the laryngeal mass. 2. Severe sepsis secondary to pneumonia: Sepsis resolved. 3. Agitation: Continue Seroquel. Remains intermittently confused and agitated. Restraints as needed. Haldol as needed. 4. Coronary artery disease: Currently asymptomatic. Continue home medications. 5. GI bleed: Appreciate GI recommendations. S/P EGD. Bleeding from laryngeal mass has resolved. OK with GI to restart anticoagulation. 6. Head and neck cancer: Appreciate oncology recommendations. Tube feeds per PEG tube. Tracheostomy in place. Appreciate ENT recommendations. 7. Chronic kidney disease stage IV: Stable. 8. Acute blood loss anemia: On EGD, bleeding appears to be from laryngeal mass. Hemoglobin improved following transfusion. 9. DVT: Ultrasound shows "probable DVT" in right posterior tibial veins. on Eliquis and Pletal per heme/onc, 10. Hypernatremia. IV fluids changed to 1/4 NS at rate of 84ml/h. Free water flushes initiated 100 ml Q6H. monitor BMP 2300 and 0600 11. Poor prognosis: Appreciate palliative care recommendations. Patient would be hospice appropriate, however patient and his family at this time desire aggressive care. Attending Statement This note was transcribed by nell Hall. I, Dr. Abiel Barney personally performed the history, physical exam, and medical decision making; and confirmed the accuracy of the information in the transcribed note. Authenticated by Dr. Abiel Barney on 04/04/17 at 18:48. Problem Qualifiers (1) DVT (deep venous thrombosis): Qualified Code: I82.441 - Deep vein thrombosis (DVT) of tibial vein of right lower extremity, unspecified chronicity Becki Hall Apr 04, 2017 17:05 Abiel Bethea MD Apr 04, 2017 18:48
[2017-04-04] MEDS: FREE WATER G-TUBE SCH (17:06)
--- NOTE | 2017-04-04 17:45 | HHI.PR ---
Subjective Remarks 66 YOWm with Laryngeal ca s/p radiation, trach, GIB,DVT has small amount of trach bloody secretion No fever Tolerates TF No more bloody secretions No new complaint Objective Vital Signs Vital Signs Date Time Temp Pulse Resp B/P Pulse Ox O2 Delivery O2 Flow Rate FiO2 04/04/17 17:00 98 T-piece 35 04/04/17 16:00 98.7 88 16 132/75 98 04/04/17 13:57 97.6 91 16 155/80 98 04/04/17 12:00 98.3 93 16 149/83 99 04/04/17 11:05 98 T-piece 35 04/04/17 08:15 98.1 95 16 146/87 95 04/04/17 04:00 97.0 97 18 146/78 91 04/04/17 00:00 97.2 84 18 140/89 100 04/03/17 21:21 98 T-piece 6.00 04/03/17 19:30 97.3 95 18 156/81 94 I/O 04/03/17 04/03/17 04/03/17 04/04/17 04/04/17 04/04/17 06:59 14:59 22:59 06:59 14:59 22:59 Intake Total 0 ml Output Total 900 ml 4 ml 700 ml 750 ml Balance -900 ml -4 ml -700 ml -750 ml Intake Oral 0 ml Output Urine Total 900 ml 4 ml 700 ml 750 ml # Bowel Movements 2 3 0 Result Diagram: 04/04/17 1156 04/04/17 1156 Objective Remarks GENERAL: MBMN WM, NAD SKIN: Warm and dry. HEAD: Normocephalic. EYES: No scleral icterus. No injection or drainage. NECK: Supple, trachea midline. No JVD or lymphadenopathy. has trach CARDIOVASCULAR: Regular rate and rhythm without murmurs, gallops, or rubs. RESPIRATORY: Breath sounds equal bilaterally. No accessory muscle use. GASTROINTESTINAL: Abdomen soft, non-tender, nondistended. has PEG tube MUSCULOSKELETAL: No cyanosis, or edema. BACK: Nontender without obvious deformity. No CVA tenderness. A/P Assessment and Plan RF,S/P Trach Hemoptysis mild DVT laryngeal ca, s/p radiation PLAN Cont Abx Trach care monitor hemoptysis Aerosol nebs TF Stable pulm Available prn over weekend Real Coffey MD Apr 04, 2017 17:44
[2017-04-04] MEDS: POTASSIUM CHLORIDE INJ 40 MEQ, SODIUM CHLORIDE 23.4% INJ 38.5 MEQ in WATER STERILE FOR ... IV SCH (18:24)
[2017-04-05] VITALS (9 sets, daily range): BP systolic 113–156; BP diastolic 67–98; PULSE 74–85; RESP 18–20; TEMP 95.7–99.2; O2SAT 95–98
[2017-04-05 01:22] LABS: BICARBONATE 22.7 MEQ/L (21.0-32.0); POTASSIUM 3.9 MEQ/L (3.5-5.1)
[2017-04-05] MEDS ORDERED: cloNIDine HCL 0.1 MG TAB PO ONE (03:45)
[2017-04-05] MEDS: ACETAMINOPHEN/HYDROcodone 325 MG/10 MG TAB PO PRN ×5 (03:57→23:28)
[2017-04-05] MEDS: PIPERACIL-TAZO 3.375 GM PREMIX 50 ML IV SCH ×2 (05:56→10:25)
[2017-04-05] MEDS: FREE WATER G-TUBE SCH ×5 (06:00→23:49)
[2017-04-05] MEDS: INSULIN ASPART SUPPLEMENTAL SCALE SQ SCH ×4 (06:07→23:27)
[2017-04-05] MEDS: CHLORHEXIDINE 0.12% (ORAL KIT) 15 ML CUP MT SCH ×2 (08:00→20:00)
[2017-04-05] MEDS: SODIUM CHLORIDE 0.9% FLUSH 10 ML FLUSH IV FLUSH SCH ×2 (09:00→20:19)
[2017-04-05] MEDS: CILOSTAZOL 50 MG TAB G-TUBE SCH ×2 (10:23→20:16)
[2017-04-05] MEDS: METOPROLOL TARTRATE 50 MG TAB G-TUBE SCH ×2 (10:23→20:16)
[2017-04-05] MEDS: HYOSCYAMINE 0.125 MG TAB G-TUBE SCH ×2 (10:23→20:16)
[2017-04-05] MEDS: APIXABAN 5 MG TABLET PO SCH ×2 (10:23→20:16)
[2017-04-05] MEDS: PANTOPRAZOLE SODIUM 40 MG VIAL IV PUSH SCH ×2 (10:23→20:17)
[2017-04-05] MEDS: ONDANSETRON HCL 4 MG/2 ML VIAL IV PUSH PRN ×2 (10:27→17:54)
[2017-04-05] MEDS ORDERED: VANCOMYCIN INJ 1,250 MG in SODIUM CHLOR 0.9% 250 ML INJ 250 ML IV ONE (12:00)
[2017-04-05 12:54] LABS: AUTOMATED NEUTROPHIL # 15.4 TH/MM3 (1.8-7.7); BASOPHIL % 0.2 % (0.0-2.0); HEMATOCRIT 33.2 % (39.0-51.0); HEMO FLAGS DIFF FINAL; LYMPH % 2.6 % (9.0-44.0); LYMPHOCYTE # 0.4 TH/MM3 (1.0-4.8); MEAN CELL VOLUME 87.3 FL (80.0-100.0); MEAN CORPUSCULAR HEMOGLOBIN 26.6 PG (27.0-34.0); MEAN CORPUSCULAR HGB CONC 30.5 % (32.0-36.0); MONO % 3.6 % (0.0-8.0); NEUT % 93.6 % (16.0-70.0); PLATELET COUNT 266 TH/MM3 (150-450); RED BLOOD COUNT 3.81 MIL/MM3 (4.50-5.90); RED CELL DISTRIBUTION WIDTH 18.9 % (11.6-17.2); WHITE BLOOD COUNT 16.5 TH/MM3 (4.0-11.0)
--- NOTE | 2017-04-05 15:23 | HHI.PR ---
Subjective Remarks Written by Becki Hall, acting as scribe for Dr. Hopper on 04/05/17 at 15:19. Follow up pneumonia, laryngeal mass. Patient sitting up in bed with at bedside. Appears to be in no acute distress. reports that patient has been having liquid stool with abdominal cramping/ upset for the past 2-3 days Patient and asking for patient to have ice chips Denies pain at this time. Objective Vitals Vital Signs Date Time Temp Pulse Resp B/P Pulse Ox O2 Delivery O2 Flow Rate FiO2 04/05/17 12:08 98.0 74 20 137/69 96 04/05/17 11:25 18 04/05/17 09:35 95 T-piece 6.00 35 04/05/17 08:22 95.7 85 20 113/76 96 04/05/17 04:00 99.2 80 18 156/89 98 04/05/17 02:04 97.2 84 18 156/98 95 04/05/17 01:25 97 T-piece 6.00 28 04/05/17 00:00 98.4 74 18 129/67 97 04/04/17 20:00 97.2 91 18 158/94 98 04/04/17 17:00 98 T-piece 35 04/04/17 16:00 98.7 88 16 132/75 98 I/O 04/04/17 04/04/17 04/04/17 04/05/17 04/05/17 04/05/17 07:00 15:00 23:00 07:00 15:00 23:00 Output Total 700 ml 750 ml Balance -700 ml -750 ml Output Urine Total 700 ml 750 ml # Voids 3 # Bowel Movements 0 Result Diagram: 04/05/17 1230 04/05/17 0050 Objective Remarks General: Chronically ill appearing elderly male in no acute distress. Tracheostomy. Heart: Regular rate and rhythm. No murmur. Lungs: clear through out. Breathing is nonlabored. Abdomen: Soft, nontender, nondistended. Extremities: No lower extremity edema. Psych: Alert, nonverbal due to tracheostomy. 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 Pneumonia, MRSA, ?aspiration: Continue vancomycin, DC azithromycin and DC Zosyn, bronchodilators, supplemental oxygen. Appreciate pulmonology recommendations. Patient unable to complete speech therapy eval due to the size and location of the laryngeal mass. Repeat CXR 2. Severe sepsis secondary to pneumonia- improved initially now worsening leukocytosis and diarrhea will consult ID 3. Agitation: Continue Seroquel. Remains intermittently confused and agitated. Restraints as needed. Haldol as needed. 4. Coronary artery disease: Currently asymptomatic. Continue home medications. 5. GI bleed: Appreciate GI recommendations. S/P EGD. Bleeding from laryngeal mass has resolved. OK with GI to restart anticoagulation. 6. Head and neck cancer: Appreciate oncology recommendations. Tube feeds per PEG tube. Tracheostomy in place. Appreciate ENT recommendations. 7. Chronic kidney disease stage IV: Stable. 8. Acute blood loss anemia: On EGD, bleeding appears to be from laryngeal mass. Hemoglobin improved following transfusion. 9. DVT: Ultrasound shows "probable DVT" in right posterior tibial veins. on Eliquis and Pletal per heme/onc, 10. Hypernatremia. IV fluids changed to 1/4 NS at rate of 84ml/h. Free water flushes initiated 100 ml Q6H. monitor BMP 2300 and 0600 147 --> repeat BMP pending 11. Poor prognosis: Appreciate palliative care recommendations. Patient would be hospice appropriate, however patient and his family at this time desire aggressive care. 12. patient may have ice chips with aspiration precautions 13. worsening leukocytosis with diarrhea will check stool for C-diff Attending Statement This note was transcribed by nell Hall. I, Dr. Abiel Barney personally performed the history, physical exam, and medical decision making; and confirmed the accuracy of the information in the transcribed note. Authenticated by Dr. Abiel Barney on 04/05/17 at 15:19. Problem Qualifiers (1) DVT (deep venous thrombosis): Qualified Code: I82.441 - Deep vein thrombosis (DVT) of tibial vein of right lower extremity, unspecified chronicity (2) Anemia: Qualified Code: D64.9 - Anemia, unspecified type Becki Hall Apr 05, 2017 15:23 Abiel Bethea MD Apr 09, 2017 14:08
--- NOTE | 2017-04-05 15:58 | RADRPT ---
EXAM DATE/TIME: 04/05/2017 15:39 [facility] COMPARISON: No previous studies available for comparison. INDICATIONS : Chest pain and shortness of breath. MEDICAL HISTORY : Chronic obstructive pulmonary disease. Congestive heart failure. Pneumonia SURGICAL HISTORY : CABG. Coronary artery stent. Tracheostomy, Peg tube ENCOUNTER: Subsequent ACUITY: 2 days PAIN SCORE: 9/10 LOCATION: Left chest FINDINGS: Diffuse but perihilar and basilar predominant bilateral infiltrates are present and there our small r ight and [id number] left pleural effusions. No pneumothorax. Heart size upper limits of normal to mildly enlarged. Patient has had previous median sternotomy. Tracheostomy tube again noted. CONCLUSION: Moderate failure. Tomi Luong MD on April 05, 2017 at 15:56 Board Certified Radiologist. This report was verified electronically.
[2017-04-05] MEDS: POTASSIUM CHLORIDE INJ 40 MEQ, SODIUM CHLORIDE 23.4% INJ 38.5 MEQ in WATER STERILE FOR ... IV SCH (16:00)
[2017-04-05 16:08] LABS: BICARBONATE 21.8 MEQ/L (21.0-32.0); POTASSIUM 4.4 MEQ/L (3.5-5.1)
[2017-04-05] MEDS: NITROGLYCERIN 0.3 MG SL 100 TABS/BTL SL PRN (20:15)
--- NOTE | 2017-04-05 20:29 | MB ---
cc: PEGGY ESPANA MD DATE OF CONSULTATION 04/05/[address] Hopper REASON FOR CONSULTATION Worsening leukocytosis, respiratory failure, diarrhea. HISTORY OF PRESENT ILLNESS This is a 66-year-old white male who was admitted to the hospital with shortness of breath. The patient presented to the emergency department on 03/25. He was just discharged from the hospital after a prolonged stay on March 21 and on March 22 he was seen in followup because of problems with his tracheostomy tube which he coughed out and they did not feel comfortable putting it back in. The patient has a laryngeal tumor. He was admitted to the hospital this time on March 25. Sputum culture was taken on March 25 and came back with MRSA. The patient has an elevated white count of 14.2 at the time. He was put on antibiotics with vancomycin. His white blood cell count improved and then started climbing again and it has steadily climbed and today it is 16.5. He is awake and alert and is in no distress. His is at bedside and tells me that he has made good progress in terms of his alertness and functioning. He did have temperature of 103 degrees when he was admitted and 03/25/1949 and his temperature has improved and he is now afebrile. Chest x-ray was performed today and it shows moderate failure. A previous chest x-ray on 03/30 showed increased interstitial edema. A chest x-ray on 03/25 reveals no acute cardiopulmonary process and on 03/26 chest x-ray showed left basilar opacity. The patient is being suctioned via his endotracheal tube. The reports that he has dominguez secretions. The patient has renal disease and his estimated GFR is 27. PAST MEDICAL HISTORY 1. History of laryngeal carcinoma 2. Diabetes mellitus, 3. Chronic kidney disease, 4. Hyperlipidemia, 5. Myocardial infarction, 6. Hypertension, 7. Gastroesophageal reflux disease PAST SURGICAL HISTORY 1. Surgery for laryngeal cancer 2. G-tube placement 3. Tracheostomy ALLERGIES [facility] CoA REDUCTASE INHIBITORS NIACIN MEDICATIONS 1. Potassium 2. Eliquis 3. Protonix 4. [place] 10 p.r.n., 5. Haldol 6. Xanax 7. Pletal 8. Levsin 9. Lopressor. 10. Piperacillin/tazobactam was discontinued today. 11. Azithromycin was discontinued today 12. DuoNeb. SOCIAL HISTORY The patient is . No tobacco, no alcohol. No illicit drugs. FAMILY HISTORY Noncontributory. REVIEW OF SYSTEMS Unable to obtain since the patient is not verbalizing although he is alert. PHYSICAL EXAMINATION GENERAL: This is a slender well-developed male who is in no acute distress. VITAL SIGNS: Temperature 97.6, BP 122/69, respirations 19, heart rate 75. HEENT: The head is atraumatic. Extraocular movements grossly intact, pupils reactive to light. No icterus. Oropharynx moist mucosa without lesions. NECK: Tracheostomy tube is in place and appears intact. No swelling at the neck. LUNGS: Rales at both bases. HEART: Regular S1, S2. Distant heart sounds. No audible murmurs. ABDOMEN: Bowel sounds present, soft, no tenderness appreciated. RECTAL: Not performed. EXTREMITIES: No clubbing, cyanosis or edema. SKIN: No rash. NEUROLOGIC: The patient is awake and alert. No gross focal findings. LABORATORY DATA WBC 16.5, platelets 266, hemoglobin 10.1, 93% neutrophils. Creatinine 2.39, BUN 34, estimated GFR 27, sodium 145. IMPRESSION 1. Leukocytosis. 2. Pneumonia due to MRSA status post treatment with vancomycin. 3. Chronic tracheostomy and possible colonization versus ongoing pneumonia with MRSA. RECOMMENDATIONS Continue to follow the white blood cell count without antibiotics at this time and, if it continues to increase, consideration can be given to adding antibiotics and repeating the sputum culture. Thank you for this consultation. The patient's progress will be monitored and further recommendations will be given on followup if necessary. Peggy Espana MD FD/ /7:13 PM /8:10 PM [email or web address]
[2017-04-05 21:56] LABS: BICARBONATE 19.8 MEQ/L (21.0-32.0); POTASSIUM 4.6 MEQ/L (3.5-5.1)
[2017-04-05] MEDS: ALPRAZolam 0.25 MG TAB PO PRN (23:27)
[2017-04-06] VITALS (10 sets, daily range): BP systolic 133–142; BP diastolic 70–88; PULSE 76–103; RESP 18–20; TEMP 96.3–98.5; O2SAT 93–98
[2017-04-06] MEDS: NITROGLYCERIN 0.3 MG SL 100 TABS/BTL SL PRN (02:41)
[2017-04-06] MEDS: ACETAMINOPHEN/HYDROcodone 325 MG/10 MG TAB PO PRN ×5 (03:05→18:17)
[2017-04-06] MEDS: CHLORHEXIDINE GLUCONATE 2 % 1 PACK (2 CLOTHS) TOP SCH (03:05)
[2017-04-06] MEDS: POTASSIUM CHLORIDE INJ 40 MEQ, SODIUM CHLORIDE 23.4% INJ 38.5 MEQ in WATER STERILE FOR ... IV SCH ×2 (03:05→06:48)
[2017-04-06 04:34] LABS: AUTOMATED NEUTROPHIL # 17.1 TH/MM3 (1.8-7.7); BASOPHIL # 0.1 TH/MM3 (0-0.2); BASOPHIL % 0.3 % (0.0-2.0); EOSINOPHIL % 0.1 % (0.0-4.0); HEMATOCRIT 33.4 % (39.0-51.0); HEMO FLAGS DIFF FINAL; LYMPH % 3.7 % (9.0-44.0); LYMPHOCYTE # 0.7 TH/MM3 (1.0-4.8); MEAN CELL VOLUME 86.9 FL (80.0-100.0); MONO % 4.7 % (0.0-8.0); NEUT % 91.2 % (16.0-70.0); PLATELET COUNT 276 TH/MM3 (150-450); RED BLOOD COUNT 3.84 MIL/MM3 (4.50-5.90); RED CELL DISTRIBUTION WIDTH 19.6 % (11.6-17.2); WHITE BLOOD COUNT 18.8 TH/MM3 (4.0-11.0)
[2017-04-06] MEDS: FREE WATER G-TUBE SCH ×4 (05:54→23:50)
[2017-04-06] MEDS: INSULIN ASPART SUPPLEMENTAL SCALE SQ SCH ×4 (05:58→23:52)
[2017-04-06] MEDS: CHLORHEXIDINE 0.12% (ORAL KIT) 15 ML CUP MT SCH ×2 (08:00→20:00)
[2017-04-06] MEDS: SODIUM CHLORIDE 0.9% FLUSH 10 ML FLUSH IV FLUSH SCH ×2 (09:00→21:00)
[2017-04-06] MEDS: HYOSCYAMINE 0.125 MG TAB G-TUBE SCH ×2 (10:05→23:37)
[2017-04-06] MEDS: PANTOPRAZOLE SODIUM 40 MG VIAL IV PUSH SCH ×2 (10:05→23:37)
[2017-04-06] MEDS: APIXABAN 5 MG TABLET PO SCH ×2 (10:05→23:49)
[2017-04-06] MEDS: CILOSTAZOL 50 MG TAB G-TUBE SCH ×2 (10:05→23:49)
[2017-04-06] MEDS: METOPROLOL TARTRATE 50 MG TAB G-TUBE SCH ×2 (10:05→23:36)
[2017-04-06] MEDS: RESP: ALBUTEROL 2.5 MG/IPRATROPIUM 0.5 MG NEB (PRN) INH ×2 (13:03→21:26)
[2017-04-06] MEDS: SODIUM CHLOR 0.9% 1000 ML INJ 1,000 ML IV SCH ×2 (14:54→22:15)
--- NOTE | 2017-04-06 17:25 | EKG ---
Date Performed: 04/05/2017 Time Performed: 20:51:08 PTAGE: 66 years EKG: Sinus rhythm WITH OCCASIONAL SUPRAVENTRICULAR PREMATURE COMPLEXES NONSPECIFIC ST & T-WAVE ABNORMALITY ABNORMAL EC G Since PREVIOUS TRACING , no significant change noted PREVIOUS TRACIN03/25/2017 09.53 DOCTOR: Francisco Chew Interpretating Date/Time 04/06/2017 17:24:08
[2017-04-06 19:13] LABS: C. DIFF EPI 027 PRESUMPTIVE NEGATIVE (NEGATIVE); C. DIFF TOXIN PCR NEGATIVE (NEGATIVE)
[2017-04-07] VITALS (9 sets, daily range): BP systolic 134–161; BP diastolic 73–87; PULSE 79–92; RESP 18–20; TEMP 97–97.5; O2SAT 96–99
[2017-04-07] MEDS ORDERED: BUMETANIDE INJ 1 MG/4 ML VIAL IV PUSH ONE (00:30)
--- NOTE | 2017-04-07 00:41 | HHI.PR ---
Subjective Remarks Deferred entry - patient seen at 14:00 hrs As per who is at bedside patient c/o palpitations and chest pain overnight which has resolved on trach collar afebrile wbc trending up denies cp/sob Objective Vitals Vital Signs Date Time Temp Pulse Resp B/P Pulse Ox O2 Delivery O2 Flow Rate FiO2 04/06/17 21:06 98 Trach Collar 5.00 28 04/06/17 20:30 97.6 101 20 139/88 94 04/06/17 16:17 96.3 82 18 142/81 98 04/06/17 12:55 96.3 76 19 133/82 97 04/06/17 10:46 103 04/06/17 10:13 93 T-piece 5.00 28 04/06/17 08:23 96.8 81 18 140/70 96 04/06/17 04:00 98.5 78 20 137/75 96 04/06/17 01:13 98 5.00 28 I/O 04/06/17 04/06/17 04/06/17 04/07/17 04/07/17 04/07/17 07:00 15:00 23:00 07:00 15:00 23:00 Intake Total 976 ml Balance 976 ml IV Total 792 ml Tube Feeding 184 ml # Voids 2 2 # Bowel Movements 4 Result Diagram: 04/06/17 0412 04/06/17 1159 Imaging Last 72 hours Impressions Chest X-Ray 04/05/17 0000 Signed Impressions: Service Date/Time: Wednesday, April 05, 2017 15:39 - CONCLUSION: Moderate failure. Tomi Luong MD Objective Remarks General: Chronically ill appearing elderly male in no acute distress. Tracheostomy. Heart: Regular rate and rhythm. No murmur. Lungs: clear through out. Breathing is nonlabored. Abdomen: Soft, nontender, nondistended. Extremities: No lower extremity edema. Psych: Alert, nonverbal due to tracheostomy. 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 Pneumonia, MRSA, ?aspiration: ID consulted - appreciate recommendations. Monitor off antibiotics. WBC trending up and now 18.8 K. FU ID recommendations. Repeat sputum culture. Repeat CXR on 04/05 shows moderate failure. 2. Severe sepsis secondary to pneumonia- ID following - off antibiotics. 3. Agitation: Much improved. Continue Haldol as needed. 4. Coronary artery disease: Currently asymptomatic. Continue home medications. 5. GI bleed: Appreciate GI recommendations. S/P EGD. Bleeding from laryngeal mass has resolved. On Apixaban - ok to resume as per GI. 6. Head and neck cancer: Appreciate oncology recommendations. Tube feeds per PEG tube. Tracheostomy in place. Appreciate ENT recommendations. 7. Chronic kidney disease stage IV: Creatinine slowly trending up. Continue to monitor BMP 8. Acute blood loss anemia: On EGD, bleeding appears to be from laryngeal mass. Hemoglobin improved following transfusion. 9. DVT: Ultrasound shows "probable DVT" in right posterior tibial veins. on Eliquis and Pletal per heme/onc, 10. Hypernatremia. Treated with 1/4 ns, hypernatremia now resolved. DC IV fluids. Continue water flushes. 11. Poor prognosis: Appreciate palliative care recommendations. Patient would be hospice appropriate, however patient and his family at this time desire aggressive care. 12. patient may have ice chips with aspiration precautions 13. worsening leukocytosis/diarrhea - C diff negative, check stool studies. 14. Chest pain: Troponin mildly elevated but trending down. EKG reviewed by me shows sinus rythm with supraventricular premature complexes. Consult cardiology. Problem Qualifiers (1) DVT (deep venous thrombosis): Qualified Code: I82.441 - Deep vein thrombosis (DVT) of tibial vein of right lower extremity, unspecified chronicity Abiel Bethea MD Apr 07, 2017 00:41
[2017-04-07] MEDS: ACETAMINOPHEN/HYDROcodone 325 MG/10 MG TAB PO PRN ×3 (02:27→12:29)
[2017-04-07] MEDS: CHLORHEXIDINE GLUCONATE 2 % 1 PACK (2 CLOTHS) TOP SCH (04:00)
[2017-04-07] MEDS: FREE WATER G-TUBE SCH ×3 (06:00→17:57)
[2017-04-07] MEDS: INSULIN ASPART SUPPLEMENTAL SCALE SQ SCH ×4 (06:24→21:00)
--- NOTE | 2017-04-07 07:49 | PD.CONS ---
HPI Consult Requested By Primary Care Physician Juliane Briggs MD History of Present Illness 66-year-old white male who was admitted on 03/25 with PNA/sepsis in the setting of shortness of breath, cough and fever. PMHX significant for Laryngeal cancer recurrence s/p radiation, s/p tracheostomy, s/p PEG, diabetes mellitus 2 chronic kidney disease stage IV, hyperlipidemia, CAD s/p CABG and PCI 2012, PAD , hypertension, GERD, DVT and aspiration pneumonia. While in-house he had an episode of acute bleeding GI. Overnight patient complaint of chest pain and palpitations. Thus cardiology has been consulted for further management and evaluation. Review of Systems Consitutional: DENIES: Fatigue, Fever, Chills, Weight gain, Weight loss Eyes: DENIES: Amaurosis Fugax, Change in vision HEENT: DENIES: Lightheadedness, Change in hearing Respiratory: COMPLAINS OF: See HPI Cardiovascular: COMPLAINS OF: See HPI Gastrointestinal: DENIES: Nausea, Vomiting, Change in bowel habits, Reflux, Bloody stools, Melena Genitourinary: DENIES: Urinary incontinence, Difficulty voiding Integumentary: DENIES: Rash Neurologic: DENIES: Tingling or numbness, Memory problems, Poor Balance, Stroke symptoms Musculoskeletal: DENIES: Joint pain, Muscle pain, Limited range of motion, Back pain Psychiatric: DENIES: Anxiety, Depression, Sleep disturbances Hematologic: DENIES: Bruising tendencies, Bleeding tendencies Endocrine: DENIES: Weight gain, Weight loss, Thyroid disease Past Family Social History Allergies: Coded Allergies: HMG-CoA Reductase Inhibitors (Verified Allergy, Severe, 03/22/17) Niacin (Verified Allergy, Severe, 03/22/17) CAUSES HIM TO FEEL HOT Oily Fish (Verified Allergy, Intermediate, Diarrhea, 03/22/17) *MDRO Multi-Drug Resistant Organism (Verified Adverse Reaction, Unknown, MRSA, 03/27/17) MRSA screen (nares) POSITIVE - 03/26/17 MRSA (sputum) 03/25/17 Past Medical History 1. History of laryngeal carcinoma 2. Diabetes mellitus, 3. Chronic kidney disease, 4. Hyperlipidemia, 5. Myocardial infarction, 6. Hypertension, 7. Gastroesophageal reflux disease Past Surgical History 1. Surgery for laryngeal cancer 2. G-tube placement 3. Tracheostomy Reported Medications Reported Meds & Active Scripts Active Levsin (Hyoscyamine Sulfate) 0.125 Mg Tab 0.125 Mg G-TUBE BID Santyl (Collagenase) 250 Unit/Gm Oin 1 Applic TOPICAL DAILY 30 Days Calcitriol Liq (Calcitriol) 1 Mcg/Ml Soln 0.25 Mcg PEG DAILY 30 Days Xanax (Alprazolam) 0.25 Mg Tab 0.25 Mg G-TUBE Q8HR PRN Duoneb (Ipratropium-Albuterol Neb) 0.5-2.5 Mg/3 Ml Neb 1 Nebule INH Q4HR NEB PRN Gabapentin Liq (Gabapentin) 250 Mg/5 Ml Soln 250 Mg G-TUBE BID Sodium Bicarbonate 325 Mg Tab 325 Mg G-TUBE BIDPC Cilostazol 50 Mg Tab 50 Mg G-TUBE BID Claritin Liq (Loratadine) 5 Mg/5 Ml Liq 10 Mg G-TUBE DAILY 30 Days Plavix (Clopidogrel Bisulfate) 75 Mg Tab 75 Mg G-TUBE DAILY Zofran Liq (Ondansetron HCl) 4 Mg/5 Ml Soln 4 Mg G-TUBE Q4HR PRN Miralax Powder (Polyethylene Glycol 3350 Powder) 17 Gm Powd 17 Gm G-TUBE DAILY PRN Mix and dissolve one measuring cap-ful (17 grams) in water or juice. Metoprolol Tartrate 50 Mg Tab 50 Mg G-TUBE BID Reported Pantoprazole (Pantoprazole Sodium) 40 Mg Tab 40 Mg PO DAILY [place] (Hydrocodone-Acetaminophen) 10-325 Mg Tab 1 Tab G-TUBE QID PRN Vitamin C (Ascorbic Acid) 250 Mg Tab 250 Mg G-TUBE BID Active Ordered Medications Current Medications Medications (Trade) Dose Ordered Sig/Alea Route Start Time Stop Time Status Last Admin (NS Flush) 2 ml UNSCH PRN IV FLUSH 03/25/17 14:45 (NS Flush) 2 ml BID IV FLUSH 03/25/17 21:00 04/06/17 09:00 (Tylenol) 650 mg Q6H PRN PO 03/25/17 14:45 03/28/17 04:48 Miscellaneous Information 1 Q361D XX 03/25/17 14:45 (Chlorhexidine 2% Cloth) Taper DAILY@04 TOP 03/26/17 04:00 03/22/18 03:59 03/27/17 02:59 (Chlorhexidine 2% Cloth) 3 pack UNSCH PRN TOP 03/25/17 14:45 (Genoveva-Colace) 1 tab BID PO 03/25/17 21:00 Hold 03/28/17 08:32 (Milk Of Magnesia Liq) 30 ml Q12H PRN PO 03/25/17 14:45 (Senokot) 17.2 mg Q12H PRN PO 03/25/17 14:45 (Dulcolax Supp) 10 mg DAILY PRN RECTAL 03/25/17 14:45 (Lactulose Liq) 30 ml DAILY PRN PO 03/25/17 14:45 (Peridex 0.12% Liq) 15 ml BID@08,20 MT 03/25/17 20:00 04/06/17 20:00 (D50w (Vial) Inj) 50 ml UNSCH PRN IV 03/25/17 15:00 (Glucagon Inj) 1 mg UNSCH PRN OTHER 03/25/17 15:00 (Pletal) 50 mg BID G-TUBE 03/26/17 09:00 04/06/17 23:49 (Levsin) 0.125 mg BID G-TUBE 03/26/17 09:00 04/06/17 23:37 (Lopressor) 50 mg BID G-TUBE 03/26/17 09:00 04/06/17 23:36 (Xanax) 0.25 mg Q8H PRN PO 03/26/17 17:00 04/05/17 23:27 (Haldol Inj) 2 mg Q4H PRN IV 03/27/17 16:30 04/01/17 22:08 Acetaminophen/ Hydrocodone Bitart 1 tab 1 tab Q4H PRN PO 03/27/17 23:15 04/07/17 06:24 (Vancomycin Consult Pharmacy) 0 ml @ 0 mls/hr UNSCH OTHER 03/28/17 15:15 (Protonix Inj) 40 mg Q12H IV PUSH 04/02/17 21:00 04/06/17 23:37 (Zofran Inj) 4 mg Q6HR PRN IV PUSH 04/02/17 14:45 04/05/17 17:54 (Eliquis) 5 mg BID PO 04/03/17 21:00 04/06/17 23:49 (Free Water) VOLUME: 100 ML Q6HR G-TUBE 04/04/17 18:00 04/07/17 06:00 (Nitrostat Sl) 0.3 mg Q5M PRN SL 04/05/17 20:00 04/06/17 02:41 (Bumex Inj) 1 mg DAILY IV PUSH 04/07/17 09:00 Family History Noncontributory Social History The patient is . No tobacco, no alcohol. No illicit drugs. Physical Exam Vital Signs Vital Signs Date Time Temp Pulse Resp B/P Pulse Ox O2 Delivery O2 Flow Rate FiO2 04/07/17 04:34 97.2 81 20 145/84 98 04/07/17 00:30 97.0 79 20 134/87 99 04/06/17 21:06 98 Trach Collar 5.00 28 04/06/17 20:30 97.6 101 20 139/88 94 04/06/17 16:17 96.3 82 18 142/81 98 04/06/17 12:55 96.3 76 19 133/82 97 04/06/17 10:46 103 04/06/17 10:13 93 T-piece 5.00 28 04/06/17 08:23 96.8 81 18 140/70 96 Physical Exam GENERAL: Well-nourished, well-developed patient. SKIN: Warm and dry. HEAD: Normocephalic. EYES: No scleral icterus. No injection or drainage. NECK: Supple, trachea midline. No JVD or lymphadenopathy. CARDIOVASCULAR: Regular rate and rhythm without murmurs, gallops, or rubs. RESPIRATORY: Breath sounds equal bilaterally. No accessory muscle use. GASTROINTESTINAL: Abdomen soft, non-tender, nondistended. EXTREMITIES: No cyanosis, or +edema. Laboratory Laboratory Tests Test 04/06/17 04/06/17 11:59 16:35 Sodium Level 139 Potassium Level 5.0 Chloride Level 111 Carbon Dioxide Level 14.0 Anion Gap 14 Blood Urea Nitrogen 36 Creatinine 2.42 Estimat Glomerular Filtration 27 Rate Random Glucose 162 Calcium Level 8.2 Troponin I 0.06 Stool C. difficile Toxin (PCR) NEGATIVE Stl C. difficile Toxin PRESUMPTIVE Epiderm 027 NEGATIVE Date/Time Procedure Status Source Growth 04/06/17 21:10 Gram Stain Received Sputum Endotracheal Pending 04/06/17 21:10 Sputum Culture Received Sputum Endotracheal Pending Result Diagram: 04/06/17 0412 04/06/17 1159 Imaging Last Impressions Chest X-Ray 04/05/17 0000 Signed Impressions: Service Date/Time: Wednesday, April 05, 2017 15:39 - CONCLUSION: Moderate failure. Tomi Luong MD Upper Extremity Ultrasound 03/25/17 0000 Signed Impressions: Service Date/Time: Saturday, March 25, 2017 16:31 - CONCLUSION: 1. Occlusive thrombus in the right cephalic vein. 2. No deep venous thrombosis left arm. Dakota Suarez MD Lung Scan-VQ Nuclear Medicine 03/25/17 0000 Signed Impressions: Service Date/Time: Saturday, March 25, 2017 13:39 - CONCLUSION: No scintigraphic findings of pulmonary embolus. Jacky Guadarrama MD Lower Extremity Ultrasound 03/25/17 0000 Signed Impressions: Service Date/Time: Saturday, March 25, 2017 16:03 - CONCLUSION: Probable deep venous thrombosis within the right posterior tibial veins. Bret Calderón MD Head CT 03/25/17 0000 Signed Impressions: Service Date/Time: Saturday, March 25, 2017 11:52 - CONCLUSION: 1. Moderate cerebral atrophy. 2. Old lacunar infarcts within the bilateral basal ganglia. 3. No acute infarct, acute hemorrhage, mass effect or extra axial fluid collections. Bret Calderón MD Assessment and Plan Problem List: (1) Chest pain Assessment and Plan: 66 y/o M with known CAD consulted due to chest pain. He reports mid epigastric pain, radiating to lower abdomen. No chest pain. He remains afebrile and hemodynamically stable. Troponin minimally elevated in the setting of renal failure. ECHO- normal LV function with no wall motion abnormalities. Recommend aggressive medical management for CAD risk factors. Thank you for the opportunity to participate in the care oft his patient Will be available on a PRN basis for any questions or concerns (2) Acute respiratory failure with hypoxemia (3) Diabetes mellitus with peripheral vascular disease (4) Chronic kidney disease, stage 4 (severe) (5) Shortness of breath (6) SIRS due to infectious process without acute organ dysfunction (7) Normochromic normocytic anemia (8) Laryngeal cancer (9) DVT (deep venous thrombosis) (10) CAD (coronary artery disease) (11) Hyperlipidemia (12) Hypertension (13) GI bleed Problem Qualifiers (1) DVT (deep venous thrombosis): Qualified Code: I82.441 - Deep vein thrombosis (DVT) of tibial vein of right lower extremity, unspecified chronicity Estuardo Gaviria MD Apr 07, 2017 07:49
[2017-04-07] MEDS: CHLORHEXIDINE 0.12% (ORAL KIT) 15 ML CUP MT SCH ×2 (08:00→20:00)
[2017-04-07] MEDS: RESP: ALBUTEROL 2.5 MG/IPRATROPIUM 0.5 MG NEB (PRN) INH (08:00)
[2017-04-07] MEDS: APIXABAN 5 MG TABLET PO SCH ×2 (08:39→21:01)
[2017-04-07] MEDS: METOPROLOL TARTRATE 50 MG TAB G-TUBE SCH ×2 (08:39→21:01)
[2017-04-07] MEDS: HYOSCYAMINE 0.125 MG TAB G-TUBE SCH ×2 (08:39→21:01)
[2017-04-07] MEDS: CILOSTAZOL 50 MG TAB G-TUBE SCH ×2 (08:40→21:02)
[2017-04-07] MEDS: SODIUM CHLORIDE 0.9% FLUSH 10 ML FLUSH IV FLUSH SCH ×2 (08:40→21:03)
--- NOTE | 2017-04-07 11:26 | PD.ONC.PN ---
Subjective Subjective Remarks Afebrile overnight. Patient resting in bed in nad. Daughter at bedside. Patient had chest pain and elevated troponins overnight. cardiology has been consulted. Objective Data Date Time Temp Pulse Resp B/P Pulse Ox O2 Delivery O2 Flow Rate FiO2 04/07/17 08:03 97 Trach Collar 5.00 28 04/07/17 08:00 97.3 85 18 161/76 98 04/07/17 04:34 97.2 81 20 145/84 98 04/07/17 00:30 97.0 79 20 134/87 99 04/06/17 21:06 98 Trach Collar 5.00 28 04/06/17 20:30 97.6 101 20 139/88 94 04/06/17 16:17 96.3 82 18 142/81 98 04/06/17 12:55 96.3 76 19 133/82 97 04/07/17 04/07/17 04/07/17 06:59 14:59 22:59 Output Total 1025 ml Balance -1025 ml Result Diagram: 04/06/17 0412 04/06/17 1159 Laboratory Results Laboratory Tests Test 04/06/17 04/06/17 11:59 16:35 Sodium Level 139 MEQ/L Potassium Level 5.0 MEQ/L Chloride Level 111 MEQ/L Carbon Dioxide Level 14.0 MEQ/L Anion Gap 14 MEQ/L Blood Urea Nitrogen 36 MG/DL Creatinine 2.42 MG/DL Estimat Glomerular Filtration 27 ML/MIN Rate Random Glucose 162 MG/DL Calcium Level 8.2 MG/DL Troponin I 0.06 NG/ML Stool C. difficile Toxin (PCR) NEGATIVE Stl C. difficile Toxin PRESUMPTIVE Epiderm 027 NEGATIVE Culture Results Microbiology Date/Time Procedure Status Source Growth 04/06/17 21:10 Gram Stain - Final Resulted Sputum Endotracheal 04/06/17 21:10 Sputum Culture Resulted Sputum Endotracheal Pending Administered Medications Medications (Trade) Dose Ordered Sig/Alea Route PRN Reason Start Time Stop Time Status Last Admin Dose Admin Sodium Chloride (NS Flush) 2 ml BID IV FLUSH 03/25/17 21:00 04/06/17 09:00 Acetaminophen (Tylenol) 650 mg Q6H PRN PO PAIN 1-10 AND/OR FEVER >101F 03/25/17 14:45 03/28/17 04:48 Chlorhexidine Gluconate (Chlorhexidine 2% Cloth) Taper DAILY@04 TOP 7/26/17 04:00 03/22/18 03:59 03/27/17 02:59 Senna/Docusate Sodium (Genoveva-Colace) 1 tab BID PO 03/25/17 21:00 Hold 03/28/17 08:32 Chlorhexidine Gluconate (Peridex 0.12% Liq) 15 ml BID@08,20 MT 03/25/17 20:00 04/06/17 20:00 Cilostazol (Pletal) 50 mg BID G-TUBE 03/26/17 09:00 04/07/17 08:40 Hyoscyamine Sulfate (Levsin) 0.125 mg BID G-TUBE 03/26/17 09:00 04/07/17 08:39 Metoprolol Tartrate (Lopressor) 50 mg BID G-TUBE 03/26/17 09:00 04/07/17 08:39 Alprazolam (Xanax) 0.25 mg Q8H PRN PO ANXIETY 03/26/17 17:00 04/05/17 23:27 Haloperidol Lactate (Haldol Inj) 2 mg Q4H PRN IV SEE LABEL COMMENTS 03/27/17 16:30 04/01/17 22:08 Acetaminophen/ Hydrocodone Bitart ([place] 10-325 Mg) 1 tab Q4H PRN PO PAIN SCALE 7 TO 10 03/27/17 23:15 04/07/17 06:24 Pantoprazole Sodium (Protonix Inj) 40 mg Q12H IV PUSH 04/02/17 21:00 04/06/17 23:37 Ondansetron HCl (Zofran Inj) 4 mg Q6HR PRN IV PUSH n/v 04/02/17 14:45 04/05/17 17:54 Apixaban (Eliquis) 5 mg BID PO 04/03/17 21:00 04/07/17 08:39 Water (Free Water) VOLUME: 100 ML Q6HR G-TUBE 04/04/17 18:00 04/07/17 06:00 Nitroglycerin (Nitrostat Sl) 0.3 mg Q5M PRN SL CHEST PAIN 04/05/17 20:00 04/06/17 02:41 Objective Remarks GENERAL: Chronically ill male sitting up in bed in [facility]. SKIN: Warm and dry. HEAD: Normocephalic. EYES: No injection or drainage. NECK: Supple, trachea midline. trach in place. CARDIOVASCULAR: Regular rate and rhythm RESPIRATORY: diminished at bases. anterior seo with scattered rhonchi. on 5L O2 via trach GASTROINTESTINAL: Abdomen soft, non-tender. EXTREMITIES: No cyanosis. No edema NEUROLOGICAL: awake and alert. moving extremities. Assessment/Plan Problem List: (1) Oropharyngeal cancer Status: Acute Plan: --palliative care following --patient with poor performance status. --family wanting to pursue aggressive care --on tube feeds w/ Suplena --I d/w w/ XRT oncology, they reattempt to start XRT tonight, 04/07/17, planned. --plan to give Erbitux outpatient (2) DVT (deep venous thrombosis) Status: Acute Plan: +deep vein thrombosis in the right posterior tibial vein. --on Pletal and Eliquis (3) Normocytic anemia Status: Acute Plan: --GI following --s/p EGD 03/31--showed blood in hypo and oropharynx --s/p pRBC transfusion --B12 WNL --s/p iron infusion (4) Sepsis Status: Acute Plan: --on multiple antibiotics --++aspiration pneumonia and sepsis. --BC no growth --sputum cx + MRSA Assessment 66y/o male with recurrent head and neck cancer admitted with aspiration pneumonia and sepsis. h/o Recurrent head and neck cancer. Diabetes type 2. Chronic kidney disease, stage IV. Hyperlipidemia. History of NC 2012. History of PCI and stent placement. Peripheral arterial disease. Hypertension. Plan 1. continue supportive care 2. monitor CBC 3. XRT tonight Attending Statement The exam, history, and the medical decision-making described in the above note were completed with the assistance of the mid-level provider. I reviewed and agree with the findings presented. I attest that I had a [id number] encounter with the patient on the same day, and personally performed and documented my assessment and findings in the medical record. Problem Qualifiers (1) DVT (deep venous thrombosis): Qualified Code: I82.441 - Deep vein thrombosis (DVT) of tibial vein of right lower extremity, unspecified chronicity Neeru Pritchett Apr 07, 2017 11:26 Perico Melchor MD Apr 07, 2017 22:15
[2017-04-07] MEDS: BUMETANIDE INJ 1 MG/4 ML VIAL IV PUSH SCH (11:48)
[2017-04-07] MEDS: PANTOPRAZOLE SODIUM 40 MG VIAL IV PUSH SCH ×2 (11:48→21:02)
--- NOTE | 2017-04-07 13:49 | HHI.PR ---
Subjective Remarks daughter and at bedside patient seems to be sleepy denies cp/sob on trach collar Objective Vitals Vital Signs Date Time Temp Pulse Resp B/P Pulse Ox O2 Delivery O2 Flow Rate FiO2 04/07/17 12:00 97.5 82 18 158/80 96 04/07/17 08:03 97 Trach Collar 5.00 28 04/07/17 08:00 97.3 85 18 161/76 98 04/07/17 04:34 97.2 81 20 145/84 98 04/07/17 00:30 97.0 79 20 134/87 99 04/06/17 21:06 98 Trach Collar 5.00 28 04/06/17 20:30 97.6 101 20 139/88 94 04/06/17 16:17 96.3 82 18 142/81 98 I/O 04/06/17 04/06/17 04/06/17 04/07/17 04/07/17 04/07/17 07:00 15:00 23:00 07:00 15:00 23:00 Intake Total 976 ml Output Total 1025 ml Balance 976 ml -1025 ml IV Total 792 ml Tube Feeding 184 ml Output Urine Total 1025 ml # Voids 2 2 # Bowel Movements 4 2 Result Diagram: 04/06/17 0412 04/06/17 1159 Imaging Last Impressions Chest X-Ray 04/05/17 0000 Signed Impressions: Service Date/Time: Wednesday, April 05, 2017 15:39 - CONCLUSION: Moderate failure. Tomi Luong MD Upper Extremity Ultrasound 03/25/17 0000 Signed Impressions: Service Date/Time: Saturday, March 25, 2017 16:31 - CONCLUSION: 1. Occlusive thrombus in the right cephalic vein. 2. No deep venous thrombosis left arm. Dakota Suarez MD Lung Scan-V Nuclear Medicine 03/25/17 0000 Signed Impressions: Service Date/Time: Saturday, March 25, 2017 13:39 - CONCLUSION: No scintigraphic findings of pulmonary embolus. Jacky Guadarrama MD Lower Extremity Ultrasound 03/25/17 0000 Signed Impressions: Service Date/Time: Saturday, March 25, 2017 16:03 - CONCLUSION: Probable deep venous thrombosis within the right posterior tibial veins. Bret Calderón MD Head CT 03/25/17 0000 Signed Impressions: Service Date/Time: Saturday, March 25, 2017 11:52 - CONCLUSION: 1. Moderate cerebral atrophy. 2. Old lacunar infarcts within the bilateral basal ganglia. 3. No acute infarct, acute hemorrhage, mass effect or extra axial fluid collections. Bret Calderón MD Objective Remarks General: Chronically ill appearing elderly male in no acute distress. Tracheostomy. Heart: Regular rate and rhythm. No murmur. Lungs: clear through out. Breathing is nonlabored. Abdomen: Soft, nontender, nondistended. Extremities: No lower extremity edema. Psych: Alert, nonverbal due to tracheostomy. Procedures None Medications and IVs Current Medications Medications (Trade) Dose Ordered Sig/Alea Route Start Time Stop Time Status Last Admin (NS Flush) 2 ml UNSCH PRN IV FLUSH 03/25/17 14:45 04/07/17 18:36 (NS Flush) 2 ml BID IV FLUSH 03/25/17 21:00 04/07/17 21:03 (Tylenol) 650 mg Q6H PRN PO 03/25/17 14:45 03/28/17 04:48 Miscellaneous Information 1 Q361D XX 03/25/17 14:45 (Chlorhexidine 2% Cloth) Taper DAILY@04 TOP 03/26/17 04:00 03/22/18 03:59 03/27/17 02:59 (Chlorhexidine 2% Cloth) 3 pack UNSCH PRN TOP 03/25/17 14:45 (Genoveva-Colace) 1 tab BID PO 03/25/17 21:00 Hold 03/28/17 08:32 (Milk Of Magnesia Liq) 30 ml Q12H PRN PO 03/25/17 14:45 (Senokot) 17.2 mg Q12H PRN PO 03/25/17 14:45 Hold (Dulcolax Supp) 10 mg DAILY PRN RECTAL 03/25/17 14:45 (Lactulose Liq) 30 ml DAILY PRN PO 03/25/17 14:45 (Peridex 0.12% Liq) 15 ml BID@08,20 MT 03/25/17 20:00 04/06/17 20:00 (D50w (Vial) Inj) 50 ml UNSCH PRN IV 03/25/17 15:00 (Glucagon Inj) 1 mg UNSCH PRN OTHER 03/25/17 15:00 (Pletal) 50 mg BID G-TUBE 03/26/17 09:00 04/07/17 21:02 (Levsin) 0.125 mg BID G-TUBE 03/26/17 09:00 04/07/17 21:01 (Lopressor) 50 mg BID G-TUBE 03/26/17 09:00 04/07/17 21:01 (Xanax) 0.25 mg Q8H PRN PO 03/26/17 17:00 04/07/17 21:01 Haloperidol Lactate 2 mg 2 mg Q4H PRN IV 03/27/17 16:30 04/01/17 22:08 (Vancomycin Consult Pharmacy) 0 ml @ 0 mls/hr UNSCH OTHER 03/28/17 15:15 (Protonix Inj) 40 mg Q12H IV PUSH 04/02/17 21:00 04/07/17 21:02 (Zofran Inj) 4 mg Q6HR PRN IV PUSH 04/02/17 14:45 04/07/17 18:36 (Eliquis) 5 mg BID PO 04/03/17 21:00 04/07/17 21:01 (Free Water) VOLUME: 100 ML Q6HR G-TUBE 04/04/17 18:00 04/07/17 17:57 (Nitrostat Sl) 0.3 mg Q5M PRN SL 04/05/17 20:00 04/06/17 02:41 (Bumex Inj) 1 mg DAILY IV PUSH 04/07/17 09:00 04/07/17 11:48 ([place] 5-325 Mg) 1 tab Q4H PRN PO 04/07/17 14:00 04/07/17 21:09 Urinary Catheter: No Vascular Central Line Catheter: No A/P Problem List: (1) DVT (deep venous thrombosis) ICD Code: I82.409 Status: Acute (2) Tracheostomy dependent ICD Code: Z93.0 Status: Acute (3) Head ache ICD Code: R51 Status: Acute (4) Head and neck malignancy ICD Code: C76.0 Status: Acute (5) Pneumonia ICD Code: J18.9 Status: Acute (6) Severe sepsis ICD Code: A41.9 Status: Resolved (7) CKD (chronic kidney disease), stage IV ICD Code: N18.4 Status: Chronic (8) CAD (coronary artery disease) ICD Code: I25.10 Status: Chronic (9) Hypertension ICD Code: I10 Status: Chronic (10) Hyperlipidemia ICD Code: E78.5 Status: Chronic (11) Anemia ICD Code: D64.9 Status: Acute (12) GI bleed ICD Code: K92.2 Status: Resolved Assessment and Plan 1. Pneumonia, MRSA, ?aspiration: ID consulted - appreciate recommendations. Monitor off antibiotics. WBC trending up and now 18.8 K. FU ID recommendations. Repeat sputum culture negative. Repeat CXR on 04/05 shows moderate failure. 2. Severe sepsis secondary to pneumonia- ID following - off antibiotics. 3. Agitation: Much improved. Continue Haldol as needed. 4. Coronary artery disease: Currently asymptomatic. Continue home medications. 5. GI bleed: Appreciate GI recommendations. S/P EGD. Bleeding from laryngeal mass has resolved. On Apixaban - ok to resume as per GI. 6. Head and neck cancer: Appreciate oncology recommendations. Tube feeds per PEG tube. Tracheostomy in place. Appreciate ENT recommendations Case discussed w oncology - Neeru Coye - XRT oncology, XRT will be attempted to be resumed today. Oncology plans to give Erbitux as an outpatient. 7. Chronic kidney disease stage IV: Creatinine slowly trending up. Continue to monitor BMP 8. Acute blood loss anemia: On EGD, bleeding appears to be from laryngeal mass. Hemoglobin improved following transfusion. 9. DVT: Ultrasound shows "probable DVT" in right posterior tibial veins. on Eliquis and Pletal per heme/onc, 10. Hypernatremia. Treated with 1/4 ns, hypernatremia now resolved. DC IV fluids. Continue water flushes. 11. Poor prognosis: Appreciate palliative care recommendations. Patient would be hospice appropriate, however patient and his family at this time desire aggressive care. 12. patient may have ice chips with aspiration precautions 13. worsening leukocytosis/diarrhea - C diff negative, check stool studies. WBC stable at 18k patient afebrile. 14. Chest pain: Troponin mildly elevated but trending down. EKG reviewed by me shows sinus rythm with supraventricular premature complexes. Cardiology consulted - recommended agressive treatment of CAD risk factors. No further interventions. Discharge Planning Continue to monitor in the medical floor. Patient to resume XRT. Problem Qualifiers (1) DVT (deep venous thrombosis): Qualified Code: I82.441 - Deep vein thrombosis (DVT) of tibial vein of right lower extremity, unspecified chronicity Abiel Bethea MD Apr 07, 2017 13:49
[2017-04-07 14:05] LABS: AUTOMATED NEUTROPHIL # 16.1 TH/MM3 (1.8-7.7); BASOPHIL # 0.2 TH/MM3 (0-0.2); BASOPHIL % 1.3 % (0.0-2.0); EOSINOPHIL % 0.3 % (0.0-4.0); HEMATOCRIT 33.6 % (39.0-51.0); HEMO FLAGS DIFF FINAL; LYMPH % 3.2 % (9.0-44.0); LYMPHOCYTE # 0.6 TH/MM3 (1.0-4.8); MEAN CELL VOLUME 85.5 FL (80.0-100.0); MEAN CORPUSCULAR HEMOGLOBIN 27.8 PG (27.0-34.0); MEAN CORPUSCULAR HGB CONC 32.5 % (32.0-36.0); MONO % 6.7 % (0.0-8.0); NEUT % 88.5 % (16.0-70.0); PLATELET COUNT 226 TH/MM3 (150-450); RED BLOOD COUNT 3.93 MIL/MM3 (4.50-5.90); RED CELL DISTRIBUTION WIDTH 20.7 % (11.6-17.2); WHITE BLOOD COUNT 18.2 TH/MM3 (4.0-11.0)
[2017-04-07] MEDS ORDERED: VANCOMYCIN 1,000 MG/NS 250 ML IV ONE ×2 (17:00)
[2017-04-07 17:32] LABS: ALT (GPT) 20 U/L (12-78); ANION GAP 9 MEQ/L (5-15); AST (GOT) 18 U/L (15-37); BICARBONATE 21.3 MEQ/L (21.0-32.0); CHLORIDE 110 MEQ/L (98-107); GLOMERULAR FILTRATION RATE 29 ML/MIN (>89); POTASSIUM 4.4 MEQ/L (3.5-5.1); TOTAL BILIRUBIN ADULT 0.3 MG/DL (0.2-1.0)
[2017-04-07 17:39] LABS: ALKALINE PHOSPHATASE 165 U/L (45-117); BLOOD UREA NITROGEN 35 MG/DL (7-18)
[2017-04-07 17:40] LABS: SODIUM (NA) 140 MEQ/L (136-145)
[2017-04-07] MEDS: ONDANSETRON HCL 4 MG/2 ML VIAL IV PUSH PRN (18:36)
--- NOTE | 2017-04-07 19:01 | HHI.PR ---
Subjective Remarks 66 YOWm with Laryngeal ca s/p radiation, trach, GIB,DVT has small amount of trach bloody secretion No fever Tolerates TF Small amount of trach secretions. Objective Vital Signs Vital Signs Date Time Temp Pulse Resp B/P Pulse Ox O2 Delivery O2 Flow Rate FiO2 04/07/17 17:36 92 04/07/17 17:15 97 Trach Collar 28 04/07/17 16:00 97.4 86 19 154/73 98 04/07/17 12:00 97.5 82 18 158/80 96 04/07/17 08:03 97 Trach Collar 5.00 28 04/07/17 08:00 97.3 85 18 161/76 98 04/07/17 04:34 97.2 81 20 145/84 98 04/07/17 00:30 97.0 79 20 134/87 99 04/06/17 21:06 98 Trach Collar 5.00 28 04/06/17 20:30 97.6 101 20 139/88 94 I/O 04/06/17 04/06/17 04/06/17 04/07/17 04/07/17 04/07/17 06:59 14:59 22:59 06:59 14:59 22:59 Intake Total 976 ml 100 ml Output Total 1025 ml 225 ml Balance 976 ml -1025 ml 100 ml -225 ml IV Total 792 ml Tube Feeding 184 ml Other 100 ml Output Urine Total 1025 ml 225 ml # Voids 2 2 3 # Bowel Movements 4 2 1 Result Diagram: 04/07/17 1230 04/07/17 1637 Objective Remarks GENERAL: MBMN WM, NAD SKIN: Warm and dry. HEAD: Normocephalic. EYES: No scleral icterus. No injection or drainage. NECK: Supple, trachea midline. No JVD or lymphadenopathy. has trach CARDIOVASCULAR: Regular rate and rhythm without murmurs, gallops, or rubs. RESPIRATORY: Breath sounds equal bilaterally. No accessory muscle use. GASTROINTESTINAL: Abdomen soft, non-tender, nondistended. has PEG tube MUSCULOSKELETAL: No cyanosis, or edema. BACK: Nontender without obvious deformity. No CVA tenderness. A/P Assessment and Plan RF,S/P Trach Hemoptysis mild DVT laryngeal ca, s/p radiation PLAN Cont Abx Trach care monitor hemoptysis Aerosol nebs TF Stable pulm Real Coffey MD Apr 07, 2017 19:01
[2017-04-07] MEDS: ALPRAZolam 0.25 MG TAB PO PRN (21:01)
[2017-04-07] MEDS: ACETAMINOPHEN/HYDROcodone 325 MG/5 MG TAB PO PRN (21:09)
[2017-04-07] MEDS: HALOPERIDOL LACTATE 5 MG/ML AMP IV PRN (23:08)
[2017-04-07] MEDS: ACETAMINOPHEN 325 MG TAB PO PRN (23:08)
[2017-04-07] MEDS: NITROGLYCERIN 0.3 MG SL 100 TABS/BTL SL PRN (23:44)
[2017-04-08] VITALS (13 sets, daily range): BP systolic 138–153; BP diastolic 72–97; PULSE 75–112; RESP 18–23; TEMP 94.8–99; O2SAT 91–100
[2017-04-08] MEDS: NITROGLYCERIN 0.3 MG SL 100 TABS/BTL SL PRN (00:52)
[2017-04-08] MEDS ORDERED: LORazepam 2 MG/ML VIAL IV PUSH ONE (01:15)
--- NOTE | 2017-04-08 01:32 | RADRPT ---
EXAM DATE/TIME: 04/08/2017 01:21 [facility] COMPARISON: CHEST SINGLE AP, April 05, 2017, 15:39. INDICATIONS : Rule out pulmonary edema. MEDICAL HISTORY : Chronic obstructive pulmonary disease. Congestive heart failure. SURGICAL HISTORY : CABG. Coronary artery stent. Tracheostomy, Peg tube ENCOUNTER: Subsequent ACUITY: 1 month PAIN SCORE: 0/10 LOCATION: Bilateral chest FINDINGS: Cardiomegaly, bilateral effusions and alveolar and interstitial opacities most likely related to diony estive heart failure. Median sternotomy wires and tracheostomy tube noted. Slight decreased interstit ial prominence. CONCLUSION: Pulmonary edema pattern. Valentín Collins MD on April 08, 2017 at 1:30 Board Certified Radiologist. This report was verified electronically.
[2017-04-08] MEDS: RESP: ALBUTEROL 2.5 MG/IPRATROPIUM 0.5 MG NEB (PRN) INH (01:48)
[2017-04-08] MEDS ORDERED: FUROSEMIDE 40 MG/4 ML VIAL IV PUSH ONE (02:30)
[2017-04-08] MEDS: CHLORHEXIDINE GLUCONATE 2 % 1 PACK (2 CLOTHS) TOP SCH (04:00)
[2017-04-08] MEDS: FREE WATER G-TUBE SCH ×4 (06:00→17:43)
[2017-04-08] MEDS: INSULIN ASPART SUPPLEMENTAL SCALE SQ SCH ×4 (06:38→21:00)
[2017-04-08] MEDS: CHLORHEXIDINE 0.12% (ORAL KIT) 15 ML CUP MT SCH ×2 (08:00→20:00)
[2017-04-08] MEDS: APIXABAN 5 MG TABLET PO SCH ×2 (10:13→20:58)
[2017-04-08] MEDS: PANTOPRAZOLE SODIUM 40 MG VIAL IV PUSH SCH ×2 (10:13→20:57)
[2017-04-08] MEDS: SODIUM CHLORIDE 0.9% FLUSH 10 ML FLUSH IV FLUSH SCH ×2 (10:14→20:57)
[2017-04-08] MEDS: HYOSCYAMINE 0.125 MG TAB G-TUBE SCH ×2 (10:14→20:58)
[2017-04-08] MEDS: CILOSTAZOL 50 MG TAB G-TUBE SCH ×2 (10:14→20:57)
[2017-04-08] MEDS: METOPROLOL TARTRATE 50 MG TAB G-TUBE SCH ×2 (10:14→20:58)
[2017-04-08] MEDS: BUMETANIDE INJ 1 MG/4 ML VIAL IV PUSH SCH (10:14)
--- NOTE | 2017-04-08 11:09 | PD.ONC.PN ---
Subjective Subjective Remarks Afebrile overnight. patient resting in room in chair. No complaints. Tolerating tube feeds. Objective Data Date Time Temp Pulse Resp B/P Pulse Ox O2 Delivery O2 Flow Rate FiO2 04/08/17 10:44 95 04/08/17 08:00 98.4 91 18 146/76 98 04/08/17 04:00 97.2 112 20 142/97 96 04/08/17 02:57 80 146/81 97 04/08/17 01:53 97 Trach Collar 28 04/08/17 00:00 94.8 87 20 148/72 98 04/07/17 23:00 80 04/07/17 17:36 92 04/07/17 17:15 97 Trach Collar 28 04/07/17 16:00 97.4 86 19 154/73 98 04/07/17 12:00 97.5 82 18 158/80 96 Result Diagram: 04/07/17 1230 04/07/17 1637 Laboratory Results Laboratory Tests Test 04/07/17 04/07/17 04/08/17 12:30 16:37 01:34 White Blood Count 18.2 TH/MM3 Red Blood Count 3.93 MIL/MM3 Hemoglobin 10.9 GM/DL Hematocrit 33.6 % Mean Corpuscular Volume 85.5 FL Mean Corpuscular Hemoglobin 27.8 PG Mean Corpuscular Hemoglobin 32.5 % Concent Red Cell Distribution Width 20.7 % Platelet Count 226 TH/MM3 Mean Platelet Volume 10.3 FL Neutrophils (%) (Auto) 88.5 % Lymphocytes (%) (Auto) 3.2 % Monocytes (%) (Auto) 6.7 % Eosinophils (%) (Auto) 0.3 % Basophils (%) (Auto) 1.3 % Neutrophils # (Auto) 16.1 TH/MM3 Lymphocytes # (Auto) 0.6 TH/MM3 Monocytes # (Auto) 1.2 TH/MM3 Eosinophils # (Auto) 0.0 TH/MM3 Basophils # (Auto) 0.2 TH/MM3 CBC Comment DIFF FINAL Differential Comment Hematology Comments Random Vancomycin Level 19.6 COMMENT Sodium Level 140 MEQ/L Potassium Level 4.4 MEQ/L Chloride Level 110 MEQ/L Carbon Dioxide Level 21.3 MEQ/L Anion Gap 9 MEQ/L Blood Urea Nitrogen 35 MG/DL Creatinine 2.25 MG/DL Estimat Glomerular Filtration 29 ML/MIN Rate Random Glucose 163 MG/DL Calcium Level 8.2 MG/DL Total Bilirubin 0.3 MG/DL Aspartate Amino Transf 18 U/L (AST/SGOT) Alanine Aminotransferase 20 U/L (ALT/SGPT) Alkaline Phosphatase 165 U/L Total Protein 6.8 GM/DL Albumin 2.2 GM/DL Troponin I 0.04 NG/ML Culture Results Microbiology Date/Time Procedure Status Source Growth 04/06/17 21:10 Gram Stain - Final Resulted Sputum Endotracheal 04/06/17 21:10 Sputum Culture - Preliminary Resulted Sputum Endotracheal HEAVY GROWTH NORMAL RESPIRATORY MARKY... Imaging Studies Last 24 hours Impressions Chest X-Ray 04/08/17 0000 Signed Impressions: Service Date/Time: Saturday, April 08, 2017 01:21 - CONCLUSION: Pulmonary edema pattern. Valentín Collins MD Administered Medications Medications (Trade) Dose Ordered Sig/Alea Route PRN Reason Start Time Stop Time Status Last Admin Dose Admin Sodium Chloride (NS Flush) 2 ml UNSCH PRN IV FLUSH FLUSH AFTER USING IV ACCESS 03/25/17 14:45 04/07/17 18:36 Sodium Chloride (NS Flush) 2 ml BID IV FLUSH 03/25/17 21:00 04/08/17 10:14 Acetaminophen (Tylenol) 650 mg Q6H PRN PO PAIN 1-10 AND/OR FEVER >101F 03/25/17 14:45 04/07/17 23:08 Chlorhexidine Gluconate (Chlorhexidine 2% Cloth) Taper DAILY@04 TOP 03/26/17 04:00 03/22/18 03:59 03/27/17 02:59 Senna/Docusate Sodium (Genoveva-Colace) 1 tab BID PO 03/25/17 21:00 Hold 03/28/17 08:32 Chlorhexidine Gluconate (Peridex 0.12% Liq) 15 ml BID@08,20 MT 03/25/17 20:00 04/06/17 20:00 Cilostazol (Pletal) 50 mg BID G-TUBE 03/26/17 09:00 04/08/17 10:14 Hyoscyamine Sulfate (Levsin) 0.125 mg BID G-TUBE 03/26/17 09:00 04/08/17 10:14 Metoprolol Tartrate (Lopressor) 50 mg BID G-TUBE 03/26/17 09:00 04/08/17 10:14 Alprazolam (Xanax) 0.25 mg Q8H PRN PO ANXIETY 03/26/17 17:00 04/07/17 21:01 Haloperidol Lactate (Haldol Inj) 2 mg Q4H PRN IV SEE LABEL COMMENTS 03/27/17 16:30 04/07/17 23:08 Pantoprazole Sodium (Protonix Inj) 40 mg Q12H IV PUSH 04/02/17 21:00 04/08/17 10:13 Ondansetron HCl (Zofran Inj) 4 mg Q6HR PRN IV PUSH n/v 04/02/17 14:45 04/07/17 18:36 Apixaban (Eliquis) 5 mg BID PO 04/03/17 21:00 04/08/17 10:13 Water (Free Water) VOLUME: 100 ML Q6HR G-TUBE 04/04/17 18:00 04/08/17 10:15 Nitroglycerin (Nitrostat Sl) 0.3 mg Q5M PRN SL CHEST PAIN 04/05/17 20:00 04/08/17 00:52 Bumetanide (Bumex Inj) 1 mg DAILY IV PUSH 04/07/17 09:00 04/08/17 10:14 Acetaminophen/ Hydrocodone Bitart ([place] 5-325 Mg) 1 tab Q4H PRN PO PAIN SCALE 1 TO 10 04/07/17 14:00 04/07/17 21:09 Objective Remarks GENERAL: Chronically ill male sitting up in chair next to bed in [facility]. SKIN: Warm and dry. HEAD: Normocephalic. EYES: No injection or drainage. NECK: Supple, trachea midline. trach in place on 5L O2 via trach. CARDIOVASCULAR: Regular rate and rhythm RESPIRATORY: diminished at bases. anterior seo clear. GASTROINTESTINAL: Abdomen soft, non-tender. EXTREMITIES: No cyanosis. No edema NEUROLOGICAL: awake, but lethargic. able to move extremities. Assessment/Plan Problem List: (1) Oropharyngeal cancer Status: Acute Plan: --palliative care following --patient with poor performance status. --family wanting to pursue aggressive care --on tube feeds w/ Suplena --XRT canceled on 04/07, per XRT he will have to be resimulated. a resimulation date has not yet been scheduled. --plan to give Erbitux outpatient (2) DVT (deep venous thrombosis) Status: Acute Plan: +deep vein thrombosis in the right posterior tibial vein. --on Pletal and Eliquis (3) Normocytic anemia Status: Acute Plan: --GI following --s/p EGD 03/31--showed blood in hypo and oropharynx --s/p pRBC transfusion --B12 WNL --s/p iron infusion Assessment 66y/o male with recurrent head and neck cancer admitted with aspiration pneumonia and sepsis. h/o Recurrent head and neck cancer. Diabetes type 2. Chronic kidney disease, stage IV. Hyperlipidemia. History of OR 2012. History of PCI and stent placement. Peripheral arterial disease. Hypertension. Plan 1. continue supportive care 2. monitor CBC Attending Statement The exam, history, and the medical decision-making described in the above note were completed with the assistance of the mid-level provider. I reviewed and agree with the findings presented. I attest that I had a [id number] encounter with the patient on the same day, and personally performed and documented my assessment and findings in the medical record. Problem Qualifiers (1) DVT (deep venous thrombosis): Qualified Code: I82.441 - Deep vein thrombosis (DVT) of tibial vein of right lower extremity, unspecified chronicity Neeru Pritchett Apr 08, 2017 11:08 Perico Melchor MD Apr 09, 2017 00:07
[2017-04-08] MEDS: ACETAMINOPHEN/HYDROcodone 325 MG/5 MG TAB PO PRN ×2 (12:48→20:58)
[2017-04-08 12:49] LABS: HEMATOCRIT 35.5 % (39.0-51.0); MEAN CELL VOLUME 87.7 FL (80.0-100.0); MEAN CORPUSCULAR HEMOGLOBIN 27.4 PG (27.0-34.0); MEAN CORPUSCULAR HGB CONC 31.3 % (32.0-36.0); PLATELET COUNT 274 TH/MM3 (150-450); RED BLOOD COUNT 4.05 MIL/MM3 (4.50-5.90); RED CELL DISTRIBUTION WIDTH 20.6 % (11.6-17.2); REVIEW FLAG FINAL; WHITE BLOOD COUNT 15.8 TH/MM3 (4.0-11.0)
[2017-04-08 13:15] LABS: BICARBONATE 20.4 MEQ/L (21.0-32.0); POTASSIUM 4.5 MEQ/L (3.5-5.1)
--- NOTE | 2017-04-08 13:20 | HHI.PR ---
Subjective Remarks patient fell this am. Trying to get up from chair denies cp/sob tolerating tube feedings Objective Vitals Vital Signs Date Time Temp Pulse Resp B/P Pulse Ox O2 Delivery O2 Flow Rate FiO2 04/08/17 12:59 99 Trach Collar 5.00 28 04/08/17 12:00 96.2 75 18 138/78 100 04/08/17 10:44 95 04/08/17 08:00 98.4 91 18 146/76 98 04/08/17 04:00 97.2 112 20 142/97 96 04/08/17 02:57 80 146/81 97 04/08/17 01:53 97 Trach Collar 28 04/08/17 00:00 94.8 87 20 148/72 98 04/07/17 23:00 80 04/07/17 17:36 92 04/07/17 17:15 97 Trach Collar 28 04/07/17 16:00 97.4 86 19 154/73 98 I/O 04/07/17 04/07/17 04/07/17 04/08/17 04/08/17 04/08/17 07:00 15:00 23:00 07:00 15:00 23:00 Intake Total 100 ml 100 ml Output Total 1025 ml 225 ml 540 ml Balance -1025 ml 100 ml -225 ml -440 ml Other 100 ml 100 ml Output Urine Total 1025 ml 225 ml 540 ml # Voids 3 4 # Bowel Movements 2 1 2 1 Result Diagram: 04/08/17 1153 04/08/17 1153 Imaging Last Impressions Chest X-Ray 04/08/17 0000 Signed Impressions: Service Date/Time: Saturday, April 08, 2017 01:21 - CONCLUSION: Pulmonary edema pattern. Valentín Collins MD Upper Extremity Ultrasound 03/25/17 0000 Signed Impressions: Service Date/Time: Saturday, March 25, 2017 16:31 - CONCLUSION: 1. Occlusive thrombus in the right cephalic vein. 2. No deep venous thrombosis left arm. Dakota Suarez MD Lung Scan- Nuclear Medicine 03/25/17 0000 Signed Impressions: Service Date/Time: Saturday, March 25, 2017 13:39 - CONCLUSION: No scintigraphic findings of pulmonary embolus. Jacky Guadarrama MD Lower Extremity Ultrasound 03/25/17 0000 Signed Impressions: Service Date/Time: Saturday, March 25, 2017 16:03 - CONCLUSION: Probable deep venous thrombosis within the right posterior tibial veins. Bret Calderón MD Head CT 03/25/17 0000 Signed Impressions: Service Date/Time: Saturday, March 25, 2017 11:52 - CONCLUSION: 1. Moderate cerebral atrophy. 2. Old lacunar infarcts within the bilateral basal ganglia. 3. No acute infarct, acute hemorrhage, mass effect or extra axial fluid collections. Bret Calderón MD Objective Remarks General: Chronically ill appearing elderly male in no acute distress. Tracheostomy. Heart: Regular rate and rhythm. No murmur. Lungs: clear through out. Breathing is nonlabored. Abdomen: Soft, nontender, nondistended. Extremities: No lower extremity edema. Psych: Alert, nonverbal due to tracheostomy. Procedures None Medications and IVs Current Medications Medications (Trade) Dose Ordered Sig/Alea Route Start Time Stop Time Status Last Admin (NS Flush) 2 ml UNSCH PRN IV FLUSH 03/25/17 14:45 04/07/17 18:36 (NS Flush) 2 ml BID IV FLUSH 03/25/17 21:00 04/08/17 10:14 (Tylenol) 650 mg Q6H PRN PO 03/25/17 14:45 04/07/17 23:08 Miscellaneous Information 1 Q361D XX 03/25/17 14:45 (Chlorhexidine 2% Cloth) Taper DAILY@04 TOP 03/26/17 04:00 03/22/18 03:59 03/27/17 02:59 (Chlorhexidine 2% Cloth) 3 pack UNSCH PRN TOP 03/25/17 14:45 (Genoveva-Colace) 1 tab BID PO 03/25/17 21:00 Hold 03/28/17 08:32 (Milk Of Magnesia Liq) 30 ml Q12H PRN PO 03/25/17 14:45 (Senokot) 17.2 mg Q12H PRN PO 03/25/17 14:45 Hold (Dulcolax Supp) 10 mg DAILY PRN RECTAL 03/25/17 14:45 (Lactulose Liq) 30 ml DAILY PRN PO 03/25/17 14:45 (Peridex 0.12% Liq) 15 ml BID@08,20 MT 03/25/17 20:00 04/06/17 20:00 (D50w (Vial) Inj) 50 ml UNSCH PRN IV 03/25/17 15:00 (Glucagon Inj) 1 mg UNSCH PRN OTHER 03/25/17 15:00 (Pletal) 50 mg BID G-TUBE 03/26/17 09:00 04/08/17 10:14 (Levsin) 0.125 mg BID G-TUBE 03/26/17 09:00 04/08/17 10:14 (Lopressor) 50 mg BID G-TUBE 03/26/17 09:00 04/08/17 10:14 (Xanax) 0.25 mg Q8H PRN PO 03/26/17 17:00 04/07/17 21:01 Haloperidol Lactate 2 mg 2 mg Q4H PRN IV 03/27/17 16:30 04/07/17 23:08 (Vancomycin Consult Pharmacy) 0 ml @ 0 mls/hr UNSCH OTHER 03/28/17 15:15 (Protonix Inj) 40 mg Q12H IV PUSH 04/02/17 21:00 04/08/17 10:13 (Zofran Inj) 4 mg Q6HR PRN IV PUSH 04/02/17 14:45 04/07/17 18:36 (Eliquis) 5 mg BID PO 04/03/17 21:00 04/08/17 10:13 (Free Water) VOLUME: 100 ML Q6HR G-TUBE 04/04/17 18:00 04/08/17 10:15 (Nitrostat Sl) 0.3 mg Q5M PRN SL 04/05/17 20:00 04/08/17 00:52 (Bumex Inj) 1 mg DAILY IV PUSH 04/07/17 09:00 04/08/17 10:14 ([place] 5-325 Mg) 1 tab Q4H PRN PO 04/07/17 14:00 04/08/17 12:48 (SEROquel) 25 mg BID@09,12 PO 04/09/17 09:00 Urinary Catheter: No A/P Problem List: (1) DVT (deep venous thrombosis) ICD Code: I82.409 Status: Acute (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 Pneumonia, MRSA, ?aspiration: ID consulted - appreciate recommendations. Monitor off antibiotics. WBC trending up and now 18.8 K. FU ID recommendations. Repeat CXR on 04/05 shows moderate failure - continue diuretics 04/08 sputum culture is growing MRSA, however the patient is afebrile and WBC is trending down. Continue to monitor CBC with differential and vital signs. Continue to monitor off antibiotics. MRSA in the sputum is likely colonization. 2. Severe sepsis secondary to pneumonia- ID following - off antibiotics. Resolved 3. Agitation: Much improved. Continue Haldol as needed. I will start the patient on Seroquel 25 maintenance by mouth twice a day. 4. Coronary artery disease: Currently asymptomatic. Continue home medications. 5. GI bleed: Appreciate GI recommendations. S/P EGD. Bleeding from laryngeal mass has resolved. On Apixaban - ok to resume as per GI. Hemoglobin stable 6. Head and neck cancer: Appreciate oncology recommendations. Tube feeds per PEG tube. Tracheostomy in place. Appreciate ENT recommendations Case discussed w oncology - Neeru Coye - XRT oncology, XRT will be attempted to be resumed today. Oncology plans to give Erbitux as an outpatient. 04/08 --XRT canceled on 04/07, per XRT he will have to be resimulated. a resimulation date has not yet been scheduled. 7. Chronic kidney disease stage IV: Creatinine slowly trending down. Continue to monitor BMP, monitor strict I's and O's. Avoid nephrotoxins. 8. Acute blood loss anemia: On EGD, bleeding appears to be from laryngeal mass. Hemoglobin improved following transfusion. 9. DVT: Ultrasound shows "probable DVT" in right posterior tibial veins. on Eliquis and Pletal per heme/onc, 10. Hypernatremia. Treated with 1/4 ns, hypernatremia now resolved. DC IV fluids. We'll increase water flushes to 150 ml's Q 6 hrs since sodium slowly trending up. 11. Poor prognosis: Appreciate palliative care recommendations. Patient would be hospice appropriate, however patient and his family at this time desire aggressive care. 12. patient may have ice chips with aspiration precautions 13. worsening leukocytosis/diarrhea - C diff negative, check stool studies. WBC stable at 18k patient afebrile. 14. Chest pain: Troponin mildly elevated but trending down. EKG reviewed by me shows sinus rythm with supraventricular premature complexes. Cardiology consulted - recommended agressive treatment of CAD risk factors. No further interventions. 04/08 no further chest pain. Discharge Planning Continue to monitor in the medical floor. Patient to resume XRT. Problem Qualifiers (1) DVT (deep venous thrombosis): Qualified Code: I82.441 - Deep vein thrombosis (DVT) of tibial vein of right lower extremity, unspecified chronicity (2) Anemia: Qualified Code: D64.9 - Anemia, unspecified type Abiel Bethea MD Apr 08, 2017 13:20
[2017-04-08] MEDS ORDERED: QUEtiapine FUMARATE 25 MG TAB PO ONE (13:30)
--- NOTE | 2017-04-08 14:58 | EKG ---
Date Performed: 04/08/2017 Time Performed: 08:04:39 PTAGE: 66 years EKG: Sinus rhythm WITH MARKED SINUS ARRHYTHMIA POSSIBLE LEFT ATRIAL ENLARGEMENT SEPTAL MYOCARDIAL INFARCTION , PROBABL Y OLD ABNORMAL ECG PREVIOUS TRACING : 04/08/2017 01.42 DOCTOR: Jad Simms Interpretating Date/Time 04/08/2017 14:54:58
--- NOTE | 2017-04-08 15:33 | EKG ---
Date Performed: 04/08/2017 Time Performed: 01:42:26 PTAGE: 66 years EKG: Sinus rhythm with PAC(s) Extensive ST-T changes may be due to myocardial ischemia Abnormal ECG PREVIOUS TRACING : 04/05/2017 20.51 DOCTOR: Jad Simms Interpretating Date/Time 04/08/2017 15:32:28
--- NOTE | 2017-04-08 19:15 | HHI.PR ---
Subjective Remarks 66 YOWm with Laryngeal ca s/p radiation, trach, GIB,DVT has small amount of trach bloody secretion No fever Tolerates TF Small amount of trach secretions. Daughter at BS Objective Vital Signs Vital Signs Date Time Temp Pulse Resp B/P Pulse Ox O2 Delivery O2 Flow Rate FiO2 04/08/17 17:48 91 T-piece 6.00 28 04/08/17 16:00 97.6 88 18 153/76 91 04/08/17 12:59 99 Trach Collar 5.00 28 04/08/17 12:00 96.2 75 18 138/78 100 04/08/17 10:44 95 04/08/17 08:00 98.4 91 18 146/76 98 04/08/17 04:00 97.2 112 20 142/97 96 04/08/17 02:57 80 146/81 97 04/08/17 01:53 97 Trach Collar 28 04/08/17 00:00 94.8 87 20 148/72 98 04/07/17 23:00 80 I/O 04/07/17 04/07/17 04/07/17 04/08/17 04/08/17 04/08/17 07:00 15:00 23:00 07:00 15:00 23:00 Intake Total 100 ml 100 ml 150 ml Output Total 1025 ml 225 ml 540 ml 400 ml Balance -1025 ml 100 ml -225 ml -440 ml -250 ml Other 100 ml 100 ml 150 ml Output Urine Total 1025 ml 225 ml 540 ml 400 ml # Voids 3 4 1 # Bowel Movements 2 1 2 3 Result Diagram: 04/08/17 1153 04/08/17 1153 Objective Remarks GENERAL: MBMN WM, NAD SKIN: Warm and dry. HEAD: Normocephalic. EYES: No scleral icterus. No injection or drainage. NECK: Supple, trachea midline. No JVD or lymphadenopathy. has trach CARDIOVASCULAR: Regular rate and rhythm without murmurs, gallops, or rubs. RESPIRATORY: Breath sounds equal bilaterally. No accessory muscle use. GASTROINTESTINAL: Abdomen soft, non-tender, nondistended. has PEG tube MUSCULOSKELETAL: No cyanosis, or edema. BACK: Nontender without obvious deformity. No CVA tenderness. A/P Assessment and Plan RF,S/P Trach Hemoptysis mild DVT laryngeal ca, s/p radiation PLAN Cont Abx Trach care monitor hemoptysis Aerosol nebs TF DW Daughter at BS Real Coffey MD Apr 08, 2017 19:14
[2017-04-08] MEDS: HALOPERIDOL LACTATE 5 MG/ML AMP IV PRN (20:22)
[2017-04-08] MEDS: ALPRAZolam 0.25 MG TAB PO PRN (20:58)
[2017-04-09] VITALS (11 sets, daily range): BP systolic 124–159; BP diastolic 67–89; PULSE 79–102; RESP 19–23; TEMP 96.3–98.9; O2SAT 94–98
[2017-04-09] MEDS: HALOPERIDOL LACTATE 5 MG/ML AMP IV PRN (03:48)
[2017-04-09] MEDS: CHLORHEXIDINE GLUCONATE 2 % 1 PACK (2 CLOTHS) TOP SCH (04:00)
[2017-04-09] MEDS: FREE WATER G-TUBE SCH ×4 (06:00→17:20)
[2017-04-09] MEDS: INSULIN ASPART SUPPLEMENTAL SCALE SQ SCH ×4 (06:25→21:00)
[2017-04-09] MEDS: METOPROLOL TARTRATE 50 MG TAB G-TUBE SCH ×2 (08:04→22:48)
[2017-04-09] MEDS: CILOSTAZOL 50 MG TAB G-TUBE SCH ×2 (08:05→22:48)
[2017-04-09] MEDS: HYOSCYAMINE 0.125 MG TAB G-TUBE SCH ×2 (08:05→22:48)
[2017-04-09] MEDS: QUEtiapine FUMARATE 25 MG TAB PO SCH ×2 (08:05→11:12)
[2017-04-09] MEDS: ACETAMINOPHEN/HYDROcodone 325 MG/5 MG TAB PO PRN ×3 (08:05→23:00)
[2017-04-09] MEDS: PANTOPRAZOLE SODIUM 40 MG VIAL IV PUSH SCH ×2 (08:08→22:48)
[2017-04-09] MEDS: SODIUM CHLORIDE 0.9% FLUSH 10 ML FLUSH IV FLUSH SCH ×2 (08:09→21:00)
[2017-04-09] MEDS: BUMETANIDE INJ 1 MG/4 ML VIAL IV PUSH SCH (08:09)
[2017-04-09] MEDS: CHLORHEXIDINE 0.12% (ORAL KIT) 15 ML CUP MT SCH ×2 (08:18→20:00)
--- NOTE | 2017-04-09 08:36 | EKG ---
Date Performed: 04/08/2017 Time Performed: 12:32:03 PTAGE: 66 years EKG: Sinus rhythm WITH OCCASIONAL SUPRAVENTRICULAR PREMATURE COMPLEXES POSSIBLE LEFT ATRIAL ENLARGEMENT NONSPECIFIC ST & T-WAVE ABNORMALITY ABNORMAL ECG PREVIOUS TRACING : 04/08/2017 08.04 DOCTOR: Estuardo Gaviria Interpretating Date/Time 04/09/2017 08:31:25
[2017-04-09] MEDS ORDERED: VANCOMYCIN INJ 1,250 MG in SODIUM CHLOR 0.9% 250 ML INJ 250 ML IV ONE (11:00)
[2017-04-09] MEDS: APIXABAN 5 MG TABLET PO SCH ×2 (11:11→22:49)
--- NOTE | 2017-04-09 11:36 | PD.ONC.PN ---
Subjective Subjective Remarks Afebrile overnight. Patient lethargic after taking Seroquel this morning. Per nurse he was complaining of pain in his epigastrium this morning. Tolerating tube feeds. No vomiting. Having small bowel movements. No diarrhea. Objective Data Date Time Temp Pulse Resp B/P Pulse Ox O2 Delivery O2 Flow Rate FiO2 04/09/17 10:38 95 Trach Collar 28 04/09/17 08:00 96.3 102 20 159/89 94 04/09/17 05:15 97.9 96 20 142/69 94 04/09/17 01:07 98 T-piece 6.00 28 04/09/17 00:20 98.9 88 21 146/78 98 04/08/17 23:00 88 04/08/17 21:00 99.0 90 23 150/73 97 04/08/17 20:00 88 04/08/17 17:48 91 T-piece 6.00 28 04/08/17 16:00 97.6 88 18 153/76 91 04/08/17 12:59 99 Trach Collar 5.00 28 04/08/17 12:00 96.2 75 18 138/78 100 04/09/17 04/09/17 04/09/17 06:59 14:59 22:59 Intake Total 0 ml Balance 0 ml Result Diagram: 04/08/17 1153 04/08/17 1153 Laboratory Results Laboratory Tests Test 04/08/17 04/08/17 11:53 20:57 White Blood Count 15.8 TH/MM3 Red Blood Count 4.05 MIL/MM3 Hemoglobin 11.1 GM/DL Hematocrit 35.5 % Mean Corpuscular Volume 87.7 FL Mean Corpuscular Hemoglobin 27.4 PG Mean Corpuscular Hemoglobin 31.3 % Concent Red Cell Distribution Width 20.6 % Platelet Count 274 TH/MM3 Mean Platelet Volume 10.0 FL Sodium Level 141 MEQ/L Potassium Level 4.5 MEQ/L Chloride Level 109 MEQ/L Carbon Dioxide Level 20.4 MEQ/L Anion Gap 12 MEQ/L Blood Urea Nitrogen 34 MG/DL Creatinine 2.12 MG/DL Estimat Glomerular Filtration 31 ML/MIN Rate Random Glucose 120 MG/DL Calcium Level 8.7 MG/DL Troponin I 0.05 NG/ML 0.04 NG/ML Random Vancomycin Level 21.5 COMMENT Culture Results Microbiology Date/Time Procedure Status Source Growth 04/06/17 16:35 Ordered Stool Stool Pending 04/06/17 16:35 Stool Pus (BECCA) - Final Complete Stool Stool NO WBC'S SEEN 04/06/17 21:10 Gram Stain - Final Resulted Sputum Endotracheal 04/06/17 21:10 Sputum Culture - Preliminary Resulted Gram Negative Eric S. Aureus Mrsa Administered Medications Medications (Trade) Dose Ordered Sig/Alea Route PRN Reason Start Time Stop Time Status Last Admin Dose Admin Sodium Chloride (NS Flush) 2 ml UNSCH PRN IV FLUSH FLUSH AFTER USING IV ACCESS 03/25/17 14:45 04/07/17 18:36 Sodium Chloride (NS Flush) 2 ml BID IV FLUSH 03/25/17 21:00 04/09/17 08:09 Acetaminophen (Tylenol) 650 mg Q6H PRN PO PAIN 1-10 AND/OR FEVER >101F 03/25/17 14:45 04/07/17 23:08 Chlorhexidine Gluconate (Chlorhexidine 2% Cloth) Taper DAILY@04 TOP 03/26/17 04:00 03/22/18 03:59 03/27/17 02:59 Senna/Docusate Sodium (Genoveva-Colace) 1 tab BID PO 03/25/17 21:00 Hold 03/28/17 08:32 Chlorhexidine Gluconate (Peridex 0.12% Liq) 15 ml BID@08,20 MT 03/25/17 20:00 04/09/17 08:18 Cilostazol (Pletal) 50 mg BID G-TUBE 03/26/17 09:00 04/09/17 08:05 Hyoscyamine Sulfate (Levsin) 0.125 mg BID G-TUBE 03/26/17 09:00 04/09/17 08:05 Metoprolol Tartrate (Lopressor) 50 mg BID G-TUBE 03/26/17 09:00 04/09/17 08:04 Alprazolam (Xanax) 0.25 mg Q8H PRN PO ANXIETY 03/26/17 17:00 04/08/17 20:58 Haloperidol Lactate (Haldol Inj) 2 mg Q4H PRN IV SEE LABEL COMMENTS 03/27/17 16:30 04/09/17 03:48 Pantoprazole Sodium (Protonix Inj) 40 mg Q12H IV PUSH 04/02/17 21:00 04/09/17 08:08 Ondansetron HCl (Zofran Inj) 4 mg Q6HR PRN IV PUSH n/v 04/02/17 14:45 04/07/17 18:36 Apixaban (Eliquis) 5 mg BID PO 04/03/17 21:00 04/09/17 11:11 Nitroglycerin (Nitrostat Sl) 0.3 mg Q5M PRN SL CHEST PAIN 04/05/17 20:00 04/08/17 00:52 Bumetanide (Bumex Inj) 1 mg DAILY IV PUSH 04/07/17 09:00 04/09/17 08:09 Acetaminophen/ Hydrocodone Bitart ([place] 5-325 Mg) 1 tab Q4H PRN PO PAIN SCALE 1 TO 10 04/07/17 14:00 04/09/17 08:05 Quetiapine Fumarate (SEROquel) 25 mg BID@09,12 PO 04/09/17 09:00 04/09/17 11:12 Water VOLUME OF WATER: ( 150 ) ML Q6HR G-TUBE 04/08/17 18:00 04/09/17 11:11 Vancomycin HCl/ Sodium Chloride (Vancomycin Inj/ NS 250 ml Inj) 262.5 ml @ 250 mls/hr ONCE ONCE IV 04/09/17 11:00 04/09/17 12:02 04/09/17 11:11 Objective Remarks GENERAL: Chronically ill male supine in bed, sleeping on approach. SKIN: Warm and dry. HEAD: Normocephalic. EYES: No injection or drainage. NECK: Supple, trachea midline. trach in place on 6L O2 via trach. CARDIOVASCULAR: Regular rate and rhythm RESPIRATORY: anterior seo with occasional rhonchi. GASTROINTESTINAL: Abdomen soft, non-tender. EXTREMITIES: No cyanosis. No edema NEUROLOGICAL: sleeping on approach. awakens to sternal rub Assessment/Plan Problem List: (1) Oropharyngeal cancer Status: Acute Plan: --palliative care following --patient with poor performance status. --family wanting to pursue aggressive care --on tube feeds w/ Suplena --XRT canceled on 04/07, per XRT he will have to be resimulated. a resimulation date has not yet been scheduled. --plan to give Erbitux outpatient (2) DVT (deep venous thrombosis) Status: Acute Plan: +deep vein thrombosis in the right posterior tibial vein. --on Pletal and Eliquis (3) Normocytic anemia Status: Acute Plan: --GI following --s/p EGD 03/31--showed blood in hypo and oropharynx --s/p pRBC transfusion --B12 WNL --s/p iron infusion Assessment 66y/o male with recurrent head and neck cancer admitted with aspiration pneumonia and sepsis. h/o Recurrent head and neck cancer. Diabetes type 2. Chronic kidney disease, stage IV. Hyperlipidemia. History of NH 2012. History of PCI and stent placement. Peripheral arterial disease. Hypertension. Plan 1. continue supportive care 2. check CBC, CMP lipase. may need to get imaging if epigastric pain persists. Attending Statement The exam, history, and the medical decision-making described in the above note were completed with the assistance of the mid-level provider. I reviewed and agree with the findings presented. I attest that I had a [id number] encounter with the patient on the same day, and personally performed and documented my assessment and findings in the medical record. lipase normal--less likely pancreatitis Pain better in the evening. some hemoptysis Hb stable ongoing supportive care poor PFS plans for palliative XRT Problem Qualifiers (1) DVT (deep venous thrombosis): Qualified Code: I82.441 - Deep vein thrombosis (DVT) of tibial vein of right lower extremity, unspecified chronicity Neeru Pritchett Apr 09, 2017 11:36 Perico Melchor MD Apr 09, 2017 23:27
--- NOTE | 2017-04-09 13:41 | HHI.PR ---
Subjective Remarks Patient seen with his at bedside. He is sitting up in the chair. His reports that he is too sedated with the Seroquel. His daughter also joined via phone. Patient himself appear to be sedated. Briefly wakes up but quickly falls asleep. He has no complaints. Objective Vitals Vital Signs Date Time Temp Pulse Resp B/P Pulse Ox O2 Delivery O2 Flow Rate FiO2 04/09/17 12:00 98.8 79 19 131/67 97 04/09/17 10:38 95 Trach Collar 28 04/09/17 08:00 96.3 102 20 159/89 94 04/09/17 05:15 97.9 96 20 142/69 94 04/09/17 01:07 98 T-piece 6.00 04/09/17 00:20 98.9 88 21 146/78 98 04/08/17 23:00 88 04/08/17 21:00 99.0 90 23 150/73 97 04/08/17 20:00 88 04/08/17 17:48 91 T-piece 6.00 28 04/08/17 16:00 97.6 88 18 153/76 91 I/O 04/08/17 04/08/17 04/08/17 04/09/17 04/09/17 04/09/17 07:00 15:00 23:00 07:00 15:00 23:00 Intake Total 100 ml 150 ml 0 ml Output Total 540 ml 400 ml Balance -440 ml -250 ml 0 ml Intake Oral 0 ml 0 ml Other 100 ml 150 ml Output Urine Total 540 ml 400 ml # Voids 4 1 2 # Bowel Movements 2 3 0 0 Result Diagram: 04/08/17 1153 04/08/17 1153 Objective Remarks GENERAL: Chronically ill appearing male in no apparent distress. NECK: trach in place. CARDIOVASCULAR: Regular rate and rhythm without murmurs, gallops, or rubs. RESPIRATORY: Clear to auscultation. Breath sounds equal bilaterally. No wheezes , rales, or rhonchi. GASTROINTESTINAL: Abdomen soft, non-tender, nondistended. Normal active bowel sounds MUSCULOSKELETAL: Extremities without clubbing, cyanosis, or edema. NEURO: Drowsy. 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 Status: Acute (3) Head ache ICD Code: R51 Status: Acute (4) Head and neck malignancy ICD Code: C76.0 Status: Acute (5) Pneumonia ICD Code: J18.9 Status: Acute (6) Severe sepsis ICD Code: A41.9 Status: Resolved (7) CKD (chronic kidney disease), stage IV ICD Code: N18.4 Status: Chronic (8) CAD (coronary artery disease) ICD Code: I25.10 Status: Chronic (9) Hypertension ICD Code: I10 Status: Chronic (10) Hyperlipidemia ICD Code: E78.5 Status: Chronic (11) Anemia ICD Code: D64.9 Status: Chronic (12) GI bleed ICD Code: K92.2 Status: Resolved Assessment and Plan 66 Y/O male with: Pneumonia, MRSA, ?aspiration: ID consulted - appreciate recommendations. Monitor off antibiotics. Repeat CXR on 04/05 shows moderate failure - continue diuretics 04/08 sputum culture grew MRSA, however the patient is afebrile and WBC is trending down. Continue to monitor CBC with differential and vital signs. Continue to monitor off antibiotics. MRSA in the sputum is likely colonization. Agitation: Much improved with Seroquel but slightly oversedated. Decrease dose to 12.5 mg BID. Continue Haldol as needed. GI bleed: Appreciate GI recommendations. S/P EGD. Bleeding from laryngeal mass has resolved. On Apixaban - ok to resume as per GI. Hemoglobin stable Head and neck cancer: Appreciate oncology recommendations. Tube feeds per PEG tube. Tracheostomy in place. To resume XRT and plan for outpatient chemo. Chronic kidney disease stage IV:Stable. Avoid nephrotoxins. Acute blood loss anemia: On EGD, bleeding appears to be from laryngeal mass. Hemoglobin improved following transfusion. DVT: Ultrasound shows "probable DVT" in right posterior tibial veins. on Eliquis and Pletal per heme/onc, Chronic pain: Continue with decreased dose of [place] 5/325. Poor prognosis: Appreciate palliative care recommendations. Patient would be hospice appropriate, however patient and his family at this time desire aggressive care. Problem Qualifiers (1) DVT (deep venous thrombosis): Qualified Code: I82.441 - Deep vein thrombosis (DVT) of tibial vein of right lower extremity, unspecified chronicity (2) Anemia: Qualified Code: D64.9 - Anemia, unspecified type Kyle Kam MD Apr 09, 2017 13:40
[2017-04-09] MEDS ORDERED: PILL SPLITTER OTHER PRN (15:15)
[2017-04-09 17:42] LABS: AUTOMATED NEUTROPHIL # 11.2 TH/MM3 (1.8-7.7); BASOPHIL % 0.2 % (0.0-2.0); EOSINOPHIL % 0.2 % (0.0-4.0); HEMATOCRIT 35.6 % (39.0-51.0); HEMO FLAGS DIFF FINAL; LYMPH % 4.8 % (9.0-44.0); LYMPHOCYTE # 0.6 TH/MM3 (1.0-4.8); MEAN CELL VOLUME 88.2 FL (80.0-100.0); MEAN CORPUSCULAR HGB CONC 31.8 % (32.0-36.0); MONO % 7.6 % (0.0-8.0); NEUT % 87.2 % (16.0-70.0); PLATELET COUNT 238 TH/MM3 (150-450); RED BLOOD COUNT 4.04 MIL/MM3 (4.50-5.90); RED CELL DISTRIBUTION WIDTH 22.3 % (11.6-17.2); WHITE BLOOD COUNT 12.9 TH/MM3 (4.0-11.0)
--- NOTE | 2017-04-09 17:42 | HHI.PR ---
Subjective Remarks 66 YOWm with Laryngeal ca s/p radiation, trach, GIB,DVT has small amount of trach bloody secretion No fever Tolerates TF Small amount of trach secretions. Awake, follows commands Objective Vital Signs Vital Signs Date Time Temp Pulse Resp B/P Pulse Ox O2 Delivery O2 Flow Rate FiO2 04/09/17 16:47 92 04/09/17 16:00 96.4 86 19 124/71 98 04/09/17 12:00 98.8 79 19 131/67 97 04/09/17 10:38 95 Trach Collar 28 04/09/17 08:00 96.3 102 20 159/89 94 04/09/17 05:15 97.9 96 20 142/69 94 04/09/17 01:07 98 T-piece 6.00 28 04/09/17 00:20 98.9 88 21 146/78 98 04/08/17 23:00 88 04/08/17 21:00 99.0 90 23 150/73 97 04/08/17 20:00 88 04/08/17 17:48 91 T-piece 6.00 28 I/O 04/08/17 04/08/17 04/08/17 04/09/17 04/09/17 04/09/17 07:00 15:00 23:00 07:00 15:00 23:00 Intake Total 100 ml 150 ml 0 ml Output Total 540 ml 400 ml 200 ml Balance -440 ml -250 ml 0 ml -200 ml Intake Oral 0 ml 0 ml Other 100 ml 150 ml Output Urine Total 540 ml 400 ml 200 ml # Voids 4 1 2 # Bowel Movements 2 3 0 0 2 Result Diagram: 04/08/17 1153 04/08/17 1153 Objective Remarks GENERAL: MBMN WM, NAD SKIN: Warm and dry. HEAD: Normocephalic. EYES: No scleral icterus. No injection or drainage. NECK: Supple, trachea midline. No JVD or lymphadenopathy. has trach CARDIOVASCULAR: Regular rate and rhythm without murmurs, gallops, or rubs. RESPIRATORY: Breath sounds equal bilaterally. No accessory muscle use. GASTROINTESTINAL: Abdomen soft, non-tender, nondistended. has PEG tube MUSCULOSKELETAL: No cyanosis, or edema. BACK: Nontender without obvious deformity. No CVA tenderness. A/P Assessment and Plan RF,S/P Trach Hemoptysis mild DVT laryngeal ca, s/p radiation PLAN Cont Abx Trach care monitor hemoptysis Aerosol nebs TF Real Coffey MD Apr 09, 2017 17:42
[2017-04-09 17:59] LABS: ALT (GPT) 18 U/L (12-78); ANION GAP 11 MEQ/L (5-15); AST (GOT) 18 U/L (15-37); BICARBONATE 20.4 MEQ/L (21.0-32.0); BLOOD UREA NITROGEN 31 MG/DL (7-18); CHLORIDE 109 MEQ/L (98-107); GLOMERULAR FILTRATION RATE 37 ML/MIN (>89); SODIUM (NA) 140 MEQ/L (136-145)
[2017-04-09 18:02] LABS: ALKALINE PHOSPHATASE 184 U/L (45-117); TOTAL BILIRUBIN ADULT 0.6 MG/DL (0.2-1.0)
[2017-04-09] MEDS: ALPRAZolam 0.25 MG TAB PO PRN (22:48)
[2017-04-10] VITALS (10 sets, daily range): BP systolic 140–174; BP diastolic 77–96; PULSE 87–108; RESP 17–22; TEMP 96–98.8; O2SAT 94–99
[2017-04-10] MEDS: CHLORHEXIDINE GLUCONATE 2 % 1 PACK (2 CLOTHS) TOP SCH (02:01)
[2017-04-10] MEDS: ACETAMINOPHEN 325 MG TAB PO PRN ×3 (02:22→11:58)
[2017-04-10] MEDS: FREE WATER G-TUBE SCH ×4 (05:02→18:00)
[2017-04-10] MEDS: ACETAMINOPHEN/HYDROcodone 325 MG/5 MG TAB PO PRN ×2 (05:02→14:25)
[2017-04-10] MEDS: INSULIN ASPART SUPPLEMENTAL SCALE SQ SCH ×4 (06:25→21:04)
--- NOTE | 2017-04-10 07:28 | RADRPT ---
EXAM DATE/TIME: 04/10/2017 06:36 [facility] COMPARISON: CHEST SINGLE AP, April 08, 2017, 1:21. INDICATIONS : Respiratory disease, short of breath MEDICAL HISTORY : Congestive heart failure. Chronic obstructive pulmonary disease. SURGICAL HISTORY : CABG. Coronary artery stent. tracheostomy, Peg tube ENCOUNTER: Subsequent ACUITY: 1 month PAIN SCORE: Non-responsive. LOCATION: Bilateral chest FINDINGS: Tracheostomy in noted in place evidence of prior median sternotomy cardiac surgery. Congestive heart or vascular congestion is again appreciated with slight increased prominence of the left pleural effu nolberto CONCLUSION: Slight increased prominence a left pleural effusion with stable findings of CHF Oscar Verdugo MD on April 10, 2017 at 7:26 Board Certified Radiologist. This report was verified electronically.
[2017-04-10] MEDS: CHLORHEXIDINE 0.12% (ORAL KIT) 15 ML CUP MT SCH ×2 (08:00→20:00)
[2017-04-10] MEDS: PANTOPRAZOLE SODIUM 40 MG VIAL IV PUSH SCH ×2 (08:29→21:02)
[2017-04-10] MEDS: APIXABAN 5 MG TABLET PO SCH ×2 (08:30→21:01)
[2017-04-10] MEDS: METOPROLOL TARTRATE 50 MG TAB G-TUBE SCH ×2 (08:30→21:00)
[2017-04-10] MEDS: HYOSCYAMINE 0.125 MG TAB G-TUBE SCH ×2 (08:31→21:01)
[2017-04-10] MEDS: ALPRAZolam 0.25 MG TAB PO PRN (08:31)
[2017-04-10] MEDS: CILOSTAZOL 50 MG TAB G-TUBE SCH ×2 (09:00→21:01)
[2017-04-10] MEDS: SODIUM CHLORIDE 0.9% FLUSH 10 ML FLUSH IV FLUSH SCH ×2 (09:00→21:01)
[2017-04-10] MEDS: QUEtiapine FUMARATE 25 MG TAB PO SCH ×2 (09:00→21:01)
--- NOTE | 2017-04-10 10:54 | PD.ONC.PN ---
Subjective Subjective Remarks Afebrile overnight. Patient resting in bed in nad. No complaints. Objective Data Date Time Temp Pulse Resp B/P Pulse Ox O2 Delivery O2 Flow Rate FiO2 04/10/17 09:16 96 Trach Collar 28 04/10/17 08:00 96.3 107 17 164/91 99 04/10/17 04:00 97.9 100 22 145/80 96 04/10/17 00:20 98.8 90 21 140/86 97 04/09/17 22:30 88 04/09/17 21:55 97 Trach Collar 6.00 28 04/09/17 20:40 97.1 86 23 142/89 98 04/09/17 16:47 92 04/09/17 16:00 96.4 86 19 124/71 98 04/09/17 12:00 98.8 79 19 131/67 97 04/10/17 04/10/17 04/10/17 07:00 15:00 23:00 Intake Total 0 ml Balance 0 ml Result Diagram: 04/09/17 1622 04/09/17 1622 Laboratory Results Laboratory Tests Test 04/09/17 16:22 White Blood Count 12.9 TH/MM3 Red Blood Count 4.04 MIL/MM3 Hemoglobin 11.3 GM/DL Hematocrit 35.6 % Mean Corpuscular Volume 88.2 FL Mean Corpuscular Hemoglobin 28.0 PG Mean Corpuscular Hemoglobin 31.8 % Concent Red Cell Distribution Width 22.3 % Platelet Count 238 TH/MM3 Mean Platelet Volume 9.9 FL Neutrophils (%) (Auto) 87.2 % Lymphocytes (%) (Auto) 4.8 % Monocytes (%) (Auto) 7.6 % Eosinophils (%) (Auto) 0.2 % Basophils (%) (Auto) 0.2 % Neutrophils # (Auto) 11.2 TH/MM3 Lymphocytes # (Auto) 0.6 TH/MM3 Monocytes # (Auto) 1.0 TH/MM3 Eosinophils # (Auto) 0.0 TH/MM3 Basophils # (Auto) 0.0 TH/MM3 CBC Comment DIFF FINAL Differential Comment Sodium Level 140 MEQ/L Potassium Level 4.0 MEQ/L Chloride Level 109 MEQ/L Carbon Dioxide Level 20.4 MEQ/L Anion Gap 11 MEQ/L Blood Urea Nitrogen 31 MG/DL Creatinine 1.81 MG/DL Estimat Glomerular Filtration 37 ML/MIN Rate Random Glucose 127 MG/DL Calcium Level 8.6 MG/DL Total Bilirubin 0.6 MG/DL Aspartate Amino Transf 18 U/L (AST/SGOT) Alanine Aminotransferase 18 U/L (ALT/SGPT) Alkaline Phosphatase 184 U/L Total Protein 6.7 GM/DL Albumin 2.2 GM/DL Lipase 155 U/L Imaging Studies Last 24 hours Impressions Chest X-Ray 04/10/17 0600 Signed Impressions: Service Date/Time: April 06:36 - CONCLUSION: Slight increased prominence a left pleural effusion with stable findings of CHF Oscar Verdugo MD Administered Medications Medications (Trade) Dose Ordered Sig/Alea Route PRN Reason Start Time Stop Time Status Last Admin Dose Admin Sodium Chloride (NS Flush) 2 ml UNSCH PRN IV FLUSH FLUSH AFTER USING IV ACCESS 03/25/17 14:45 04/07/17 18:36 Sodium Chloride (NS Flush) 2 ml BID IV FLUSH 03/25/17 21:00 04/09/17 21:00 Acetaminophen (Tylenol) 650 mg Q6H PRN PO PAIN 1-10 AND/OR FEVER >101F 03/25/17 14:45 04/10/17 08:30 Chlorhexidine Gluconate (Chlorhexidine 2% Cloth) Taper DAILY@04 TOP 03/26/17 04:00 03/22/18 03:59 03/27/17 02:59 Senna/Docusate Sodium (Genoveva-Colace) 1 tab BID PO 03/25/17 21:00 Hold 03/28/17 08:32 Chlorhexidine Gluconate (Peridex 0.12% Liq) 15 ml BID@08,20 MT 03/25/17 20:00 04/09/17 20:00 Cilostazol (Pletal) 50 mg BID G-TUBE 03/26/17 09:00 04/09/17 22:48 Hyoscyamine Sulfate (Levsin) 0.125 mg BID G-TUBE 03/26/17 09:00 04/10/17 08:31 Metoprolol Tartrate (Lopressor) 50 mg BID G-TUBE 03/26/17 09:00 04/10/17 08:30 Alprazolam (Xanax) 0.25 mg Q8H PRN PO ANXIETY 03/26/17 17:00 04/10/17 08:31 Haloperidol Lactate (Haldol Inj) 2 mg Q4H PRN IV SEE LABEL COMMENTS 03/27/17 16:30 04/09/17 03:48 Pantoprazole Sodium (Protonix Inj) 40 mg Q12H IV PUSH 04/02/17 21:00 04/10/17 08:29 Ondansetron HCl (Zofran Inj) 4 mg Q6HR PRN IV PUSH n/v 04/02/17 14:45 04/07/17 18:36 Apixaban (Eliquis) 5 mg BID PO 04/03/17 21:00 04/10/17 08:30 Nitroglycerin (Nitrostat Sl) 0.3 mg Q5M PRN SL CHEST PAIN 04/05/17 20:00 04/08/17 00:52 Acetaminophen/ Hydrocodone Bitart ([place] 5-325 Mg) 1 tab Q4H PRN PO PAIN SCALE 1 TO 10 04/07/17 14:00 04/10/17 05:02 Water (Free Water) VOLUME OF WATER: ( 150 ) ML Q6HR G-TUBE 04/08/17 18:00 04/10/17 05:02 Objective Remarks GENERAL: Chronically ill male lying in bed sleeping. SKIN: Warm and dry. HEAD: Normocephalic. EYES: No injection or drainage. NECK: Supple, trachea midline. trach in place CARDIOVASCULAR: Regular rate and rhythm RESPIRATORY: anterior seo with occasional rhonchi. GASTROINTESTINAL: Abdomen soft, non-tender. EXTREMITIES: No cyanosis. No edema NEUROLOGICAL: lethargic/sleeping. awakens to physical stimuli Assessment/Plan Problem List: (1) Oropharyngeal cancer Status: Acute Plan: --palliative care following --patient with poor performance status. --family wanting to pursue aggressive care --on tube feeds w/ Suplena --XRT canceled on 04/07, per XRT he will have to be resimulated. a resimulation date has not yet been scheduled. (2) DVT (deep venous thrombosis) Status: Acute Plan: +deep vein thrombosis in the right posterior tibial vein. --on Pletal and Eliquis (3) Normocytic anemia Status: Acute Plan: --GI following --s/p EGD 03/31--showed blood in hypo and oropharynx --s/p pRBC transfusion --B12 WNL --s/p iron infusion Assessment 66y/o male with recurrent head and neck cancer admitted with aspiration pneumonia and sepsis. h/o Recurrent head and neck cancer. Diabetes type 2. Chronic kidney disease, stage IV. Hyperlipidemia. History of [place] 2012. History of PCI and stent placement. Peripheral arterial disease. Hypertension. Plan 1. continue supportive care 2. continue tube feeds 3. XRT/Erbitux when clinically improved. Attending Statement The exam, history, and the medical decision-making described in the above note were completed with the assistance of the mid-level provider. I reviewed and agree with the findings presented. I attest that I had a [id number] encounter with the patient on the same day, and personally performed and documented my assessment and findings in the medical record. Problem Qualifiers (1) DVT (deep venous thrombosis): Qualified Code: I82.441 - Deep vein thrombosis (DVT) of tibial vein of right lower extremity, unspecified chronicity Neeru Pritchett Apr 10, 2017 10:54 Perico Melchor MD Apr 10, 2017 23:49
[2017-04-10 13:12] LABS: HEMATOCRIT 36.5 % (39.0-51.0); MEAN CELL VOLUME 87.9 FL (80.0-100.0); MEAN CORPUSCULAR HGB CONC 31.9 % (32.0-36.0); PLATELET COUNT 248 TH/MM3 (150-450); RED BLOOD COUNT 4.15 MIL/MM3 (4.50-5.90); RED CELL DISTRIBUTION WIDTH 22.1 % (11.6-17.2); REVIEW FLAG FINAL; WHITE BLOOD COUNT 11.7 TH/MM3 (4.0-11.0)
[2017-04-10 13:35] LABS: BICARBONATE 22.5 MEQ/L (21.0-32.0)
--- NOTE | 2017-04-10 14:42 | HHI.PR ---
Subjective Remarks Patient's reports that he is much more awake. He denies any complaints except for intermittent abdominal pain. His would like [place] to be increased to 7.5/325. Objective Vitals Vital Signs Date Time Temp Pulse Resp B/P Pulse Ox O2 Delivery O2 Flow Rate FiO2 04/10/17 09:16 96 Trach Collar 28 04/10/17 08:00 96.3 107 17 164/91 99 04/10/17 04:00 97.9 100 22 145/80 96 04/10/17 00:20 98.8 90 21 140/86 97 04/09/17 22:30 88 04/09/17 21:55 97 Trach Collar 6.00 28 04/09/17 20:40 97.1 86 23 142/89 98 04/09/17 16:47 92 04/09/17 16:00 96.4 86 19 124/71 98 I/O 04/09/17 04/09/17 04/09/17 04/10/17 04/10/17 04/10/17 06:59 14:59 22:59 06:59 14:59 22:59 Intake Total 0 ml 0 ml 0 ml Output Total 200 ml Balance 0 ml -200 ml 0 ml Intake Oral 0 ml 0 ml 0 ml Output Urine Total 200 ml # Voids 2 2 5 # Bowel Movements 0 3 3 Result Diagram: 04/10/17 1249 04/10/17 1249 Imaging Last Impressions Chest X-Ray 04/10/17 0600 Signed Impressions: Service Date/Time: April 06:36 - CONCLUSION: Slight increased prominence a left pleural effusion with stable findings of CHF Oscar Verdugo MD Upper Extremity Ultrasound 03/25/17 0000 Signed Impressions: Service Date/Time: Saturday, March 25, 2017 16:31 - CONCLUSION: 1. Occlusive thrombus in the right cephalic vein. 2. No deep venous thrombosis left arm. Dakota Suarez MD Lung Scan-V Nuclear Medicine 03/25/17 0000 Signed Impressions: Service Date/Time: Saturday, March 25, 2017 13:39 - CONCLUSION: No scintigraphic findings of pulmonary embolus. Jacky Guadarrama MD Lower Extremity Ultrasound 03/25/17 0000 Signed Impressions: Service Date/Time: Saturday, March 25, 2017 16:03 - CONCLUSION: Probable deep venous thrombosis within the right posterior tibial veins. Bret Calderón MD Head CT 03/25/17 0000 Signed Impressions: Service Date/Time: Saturday, March 25, 2017 11:52 - CONCLUSION: 1. Moderate cerebral atrophy. 2. Old lacunar infarcts within the bilateral basal ganglia. 3. No acute infarct, acute hemorrhage, mass effect or extra axial fluid collections. Bret Calderón MD Objective Remarks GENERAL: Chronically ill appearing male in no apparent distress. NECK: trach in place. CARDIOVASCULAR: Regular rate and rhythm without murmurs, gallops, or rubs. RESPIRATORY: Clear to auscultation. Breath sounds equal bilaterally. No wheezes , rales, or rhonchi. GASTROINTESTINAL: Abdomen soft, non-tender, nondistended. Normal active bowel sounds MUSCULOSKELETAL: Extremities without clubbing, cyanosis, or edema. NEURO: Drowsy. 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 Status: Acute (3) Head ache ICD Code: R51 Status: Acute (4) Head and neck malignancy ICD Code: C76.0 Status: Acute (5) Pneumonia ICD Code: J18.9 Status: Acute (6) Severe sepsis ICD Code: A41.9 Status: Resolved (7) CKD (chronic kidney disease), stage IV ICD Code: N18.4 Status: Chronic (8) CAD (coronary artery disease) ICD Code: I25.10 Status: Chronic (9) Hypertension ICD Code: I10 Status: Chronic (10) Hyperlipidemia ICD Code: E78.5 Status: Chronic (11) Anemia ICD Code: D64.9 Status: Chronic (12) GI bleed ICD Code: K92.2 Status: Resolved Assessment and Plan 66 Y/O male with: Pneumonia, MRSA, ?aspiration: ID consulted - appreciate recommendations. Monitor off antibiotics. Repeat CXR on 04/05 shows moderate failure - continue diuretics 04/08 sputum culture grew MRSA, however the patient is afebrile and WBC is trending down. Continue to monitor CBC with differential and vital signs. Continue to monitor off antibiotics. MRSA in the sputum is likely colonization. Agitation: Much improved with Seroquel, low dose. 12.5 mg BID. Continue Haldol as needed. GI bleed: Appreciate GI recommendations. S/P EGD. Bleeding from laryngeal mass has resolved. On Apixaban - ok to resume as per GI. Hemoglobin stable Head and neck cancer: Appreciate oncology recommendations. Tube feeds per PEG tube. Tracheostomy in place. To resume XRT and plan for outpatient chemo. Chronic kidney disease stage IV:Stable. Avoid nephrotoxins. Acute blood loss anemia: On EGD, bleeding appears to be from laryngeal mass. Hemoglobin improved following transfusion. DVT: Ultrasound shows "probable DVT" in right posterior tibial veins. on Eliquis and Pletal per heme/onc, Chronic pain: Continue with [place], increase to 7.5/325. Poor prognosis: Appreciate palliative care recommendations. Patient would be hospice appropriate, however patient and his family at this time desire aggressive care. Discharge Planning DC planning to SNF. Case management consulted. Problem Qualifiers (1) DVT (deep venous thrombosis): Qualified Code: I82.441 - Deep vein thrombosis (DVT) of tibial vein of right lower extremity, unspecified chronicity (2) Anemia: Qualified Code: D64.9 - Anemia, unspecified type Kyle Kam MD Apr 10, 2017 14:42
--- NOTE | 2017-04-10 17:05 | HHI.IDPN ---
Note Infectious Disease Note Patient has no complaints. Alert. No fever. WBC decreasing. Mild trach secretions. sputum culture sent on 04/08 has MRSA and Stenotrophomonas. PAST MEDICAL HISTORY 1. History of laryngeal carcinoma 2. Diabetes mellitus, 3. Chronic kidney disease, 4. Hyperlipidemia, 5. Myocardial infarction, 6. Hypertension, 7. Gastroesophageal reflux disease PAST SURGICAL HISTORY 1. Surgery for laryngeal cancer 2. G-tube placement 3. Tracheostomy ALLERGIES HMG CoA REDUCTASE INHIBITORS NIACIN Vital Signs Date Time Temp Pulse Resp B/P Pulse Ox O2 Delivery O2 Flow Rate FiO2 04/10/17 14:47 95 04/10/17 09:16 96 Trach Collar 28 04/10/17 08:00 96.3 107 17 164/91 99 04/10/17 04:00 97.9 100 22 145/80 96 04/10/17 00:20 98.8 90 21 140/86 97 04/09/17 22:30 88 04/09/17 21:55 97 Trach Collar 6.00 28 04/09/17 20:40 97.1 86 23 142/89 98 Laboratory Tests Test 04/09/17 04/10/17 16:22 12:49 White Blood Count 12.9 TH/MM3 11.7 TH/MM3 Red Blood Count 4.04 MIL/MM3 4.15 MIL/MM3 Hemoglobin 11.3 GM/DL 11.6 GM/DL Hematocrit 35.6 % 36.5 % Mean Corpuscular Volume 88.2 FL 87.9 FL Mean Corpuscular Hemoglobin 28.0 PG 28.0 PG Mean Corpuscular Hemoglobin 31.8 % 31.9 % Concent Red Cell Distribution Width 22.3 % 22.1 % Platelet Count 238 TH/MM3 248 TH/MM3 Mean Platelet Volume 9.9 FL 9.7 FL Neutrophils (%) (Auto) 87.2 % Lymphocytes (%) (Auto) 4.8 % Monocytes (%) (Auto) 7.6 % Eosinophils (%) (Auto) 0.2 % Basophils (%) (Auto) 0.2 % Neutrophils # (Auto) 11.2 TH/MM3 Lymphocytes # (Auto) 0.6 TH/MM3 Monocytes # (Auto) 1.0 TH/MM3 Eosinophils # (Auto) 0.0 TH/MM3 Basophils # (Auto) 0.0 TH/MM3 CBC Comment DIFF FINAL Differential Comment Laboratory Tests Test 8/04/1704/09/17 04/10/17 20:57 16:22 12:49 Troponin I 0.04 NG/ML Sodium Level 140 MEQ/L 139 MEQ/L Potassium Level 4.0 MEQ/L 4.0 MEQ/L Chloride Level 109 MEQ/L 107 MEQ/L Carbon Dioxide Level 20.4 MEQ/L 22.5 MEQ/L Anion Gap 11 MEQ/L 10 MEQ/L Blood Urea Nitrogen 31 MG/DL 29 MG/DL Creatinine 1.81 MG/DL 1.69 MG/DL Estimat Glomerular Filtration 37 ML/MIN 41 ML/MIN Rate Random Glucose 127 MG/DL 170 MG/DL Calcium Level 8.6 MG/DL 8.9 MG/DL Total Bilirubin 0.6 MG/DL Aspartate Amino Transf 18 U/L (AST/SGOT) Alanine Aminotransferase 18 U/L (ALT/SGPT) Alkaline Phosphatase 184 U/L Total Protein 6.7 GM/DL Albumin 2.2 GM/DL Lipase 155 U/L IMAGING: Chest X-Ray 04/10/17 0600 Signed Impressions: Service Date/Time: April 06:36 - CONCLUSION: Slight increased prominence a left pleural effusion with stable findings of CHF Ocsar Verdugo MD PHYSICAL EXAMINATION GENERAL: No acute distress. HEENT: The head is atraumatic. Extraocular movements grossly intact, pupils reactive to light. No icterus. Oropharynx moist mucosa without lesions. NECK: Tracheostomy tube is in place and appears intact. LUNGS: Rales at both bases. HEART: Regular S1, S2. Distant heart sounds. No audible murmurs. ABDOMEN: Bowel sounds present, soft, no tenderness. EXTREMITIES: No clubbing, cyanosis or edema. SKIN: No rash. NEUROLOGIC: Awake and alert. No gross focal findings. IMPRESSION 1. Leukocytosis. 2. Pneumonia due to MRSA status post treatment with vancomycin. 3. Chronic tracheostomy with colonization. RECOMMENDATIONS Continue to follow the white blood cell count without antibiotics I will sign off now. please reconsult if further input is needed. Jaylon Espana MD Apr 10, 2017 17:05
--- NOTE | 2017-04-10 17:29 | HHI.PR ---
Subjective Remarks 66 YOWm with Laryngeal ca s/p radiation, trach, GIB,DVT has small amount of trach bloody secretion No fever Tolerates TF Small amount of trach secretions. Awake, follows commands Pulled out trach, replaced back Objective Vital Signs Vital Signs Date Time Temp Pulse Resp B/P Pulse Ox O2 Delivery O2 Flow Rate FiO2 04/10/17 14:47 95 04/10/17 09:16 96 Trach Collar 28 04/10/17 08:00 96.3 107 17 164/91 99 04/10/17 04:00 97.9 100 22 145/80 96 04/10/17 00:20 98.8 90 21 140/86 97 04/09/17 22:30 88 04/09/17 21:55 97 Trach Collar 6.00 28 04/09/17 20:40 97.1 86 23 142/89 98 I/O 04/09/17 04/09/17 04/09/17 04/10/17 04/10/17 04/10/17 07:00 15:00 23:00 07:00 15:00 23:00 Intake Total 0 ml 0 ml 0 ml Output Total 200 ml Balance 0 ml -200 ml 0 ml Intake Oral 0 ml 0 ml 0 ml Output Urine Total 200 ml # Voids 2 2 5 # Bowel Movements 0 3 3 Result Diagram: 04/10/17 1249 04/10/17 1249 Objective Remarks GENERAL: MBMN WM, NAD SKIN: Warm and dry. HEAD: Normocephalic. EYES: No scleral icterus. No injection or drainage. NECK: Supple, trachea midline. No JVD or lymphadenopathy. has trach CARDIOVASCULAR: Regular rate and rhythm without murmurs, gallops, or rubs. RESPIRATORY: Breath sounds equal bilaterally. No accessory muscle use. GASTROINTESTINAL: Abdomen soft, non-tender, nondistended. has PEG tube MUSCULOSKELETAL: No cyanosis, or edema. BACK: Nontender without obvious deformity. No CVA tenderness. A/P Assessment and Plan RF,S/P Trach Hemoptysis mild DVT laryngeal ca, s/p radiation PLAN Cont Abx Trach care monitor hemoptysis Aerosol nebs TF Real Coffey MD Apr 10, 2017 17:29
[2017-04-10] MEDS: ACETAMINOPHEN/HYDROcodone 325 MG/7.5 MG TAB PO PRN (18:01)
[2017-04-10] MEDS: ONDANSETRON HCL 4 MG/2 ML VIAL IV PUSH PRN (18:38)
[2017-04-11] VITALS (11 sets, daily range): BP systolic 125–152; BP diastolic 67–88; PULSE 68–108; RESP 17–22; TEMP 96.1–97.1; O2SAT 95–99
[2017-04-11] MEDS: CHLORHEXIDINE GLUCONATE 2 % 1 PACK (2 CLOTHS) TOP SCH (04:00)
[2017-04-11] MEDS: RESP: ALBUTEROL 2.5 MG/IPRATROPIUM 0.5 MG NEB (PRN) INH (04:37)
[2017-04-11] MEDS: FREE WATER G-TUBE SCH ×4 (06:00→17:45)
[2017-04-11] MEDS: INSULIN ASPART SUPPLEMENTAL SCALE SQ SCH ×4 (06:41→21:00)
[2017-04-11] MEDS: ACETAMINOPHEN/HYDROcodone 325 MG/7.5 MG TAB PO PRN ×4 (06:42→21:48)
[2017-04-11] MEDS: CHLORHEXIDINE 0.12% (ORAL KIT) 15 ML CUP MT SCH ×2 (08:00→20:00)
[2017-04-11] MEDS: PANTOPRAZOLE SODIUM 40 MG VIAL IV PUSH SCH (08:25)
[2017-04-11] MEDS: METOPROLOL TARTRATE 50 MG TAB G-TUBE SCH ×2 (08:25→21:49)
[2017-04-11] MEDS: CILOSTAZOL 50 MG TAB G-TUBE SCH ×2 (08:25→21:48)
[2017-04-11] MEDS: SODIUM CHLORIDE 0.9% FLUSH 10 ML FLUSH IV FLUSH SCH ×2 (08:26→21:49)
[2017-04-11] MEDS: ALPRAZolam 0.25 MG TAB PO PRN ×3 (08:26→21:49)
[2017-04-11] MEDS: APIXABAN 5 MG TABLET PO SCH ×2 (08:26→21:42)
[2017-04-11] MEDS: HYOSCYAMINE 0.125 MG TAB G-TUBE SCH ×2 (08:26→21:48)
[2017-04-11] MEDS: QUEtiapine FUMARATE 25 MG TAB PO SCH ×2 (08:26→21:49)
[2017-04-11] MEDS ORDERED: BUMETANIDE INJ 1 MG/4 ML VIAL IV PUSH SCH (09:00)
[2017-04-11] MEDS: ONDANSETRON HCL 4 MG/2 ML VIAL IV PUSH PRN (13:24)
--- NOTE | 2017-04-11 13:42 | PD.ONC.PN ---
Subjective Subjective Remarks Afebrile overnight. Patient resting in bed in nad. at bedside. Went to XRT for repeat simulation this morning. Objective Data Date Time Temp Pulse Resp B/P Pulse Ox O2 Delivery O2 Flow Rate FiO2 04/11/17 13:31 89 04/11/17 08:00 96.1 94 17 151/76 99 04/11/17 07:51 18 04/11/17 04:30 97.0 90 20 147/77 98 04/11/17 00:30 97.1 68 19 152/88 96 04/10/17 21:43 95 Trach Collar 6.00 28 04/10/17 21:30 108 04/10/17 20:47 96.0 95 18 141/77 94 04/10/17 16:00 96.0 98 17 165/96 98 04/10/17 14:47 95 04/11/17 04/11/17 04/11/17 06:59 14:59 22:59 Intake Total 570 ml Balance 570 ml Result Diagram: 04/10/17 1249 04/10/17 1249 Administered Medications Medications (Trade) Dose Ordered Sig/Alea Route PRN Reason Start Time Stop Time Status Last Admin Dose Admin Sodium Chloride (NS Flush) 2 ml UNSCH PRN IV FLUSH FLUSH AFTER USING IV ACCESS 03/25/17 14:45 04/07/17 18:36 Sodium Chloride (NS Flush) 2 ml BID IV FLUSH 03/25/17 21:00 04/11/17 08:26 Acetaminophen (Tylenol) 650 mg Q6H PRN PO PAIN 1-10 AND/OR FEVER >101F 03/25/17 14:45 04/10/17 11:58 Chlorhexidine Gluconate (Chlorhexidine 2% Cloth) Taper DAILY@04 TOP 03/26/17 04:00 03/22/18 03:59 03/27/17 02:59 Senna/Docusate Sodium (Genoveva-Colace) 1 tab BID PO 03/25/17 21:00 Hold 03/28/17 08:32 Chlorhexidine Gluconate (Peridex 0.12% Liq) 15 ml BID@08,20 MT 03/25/17 20:00 04/11/17 08:00 Cilostazol (Pletal) 50 mg BID G-TUBE 03/26/17 09:00 04/11/17 08:25 Hyoscyamine Sulfate (Levsin) 0.125 mg BID G-TUBE 03/26/17 09:00 04/11/17 08:26 Metoprolol Tartrate (Lopressor) 50 mg BID G-TUBE 03/26/17 09:00 04/11/17 08:25 Alprazolam (Xanax) 0.25 mg Q8H PRN PO ANXIETY 03/26/17 17:00 04/11/17 08:27 Haloperidol Lactate (Haldol Inj) 2 mg Q4H PRN IV SEE LABEL COMMENTS 03/27/17 16:30 04/09/17 03:48 Pantoprazole Sodium (Protonix Inj) 40 mg Q12H IV PUSH 04/02/17 21:00 04/11/17 08:25 Ondansetron HCl (Zofran Inj) 4 mg Q6HR PRN IV PUSH n/v 04/02/17 14:45 04/11/17 13:24 Apixaban (Eliquis) 5 mg BID PO 04/03/17 21:00 04/11/17 08:26 Nitroglycerin (Nitrostat Sl) 0.3 mg Q5M PRN SL CHEST PAIN 04/05/17 20:00 04/08/17 00:52 Water (Free Water) VOLUME OF WATER: ( 150 ) ML Q6HR G-TUBE 04/08/17 18:00 04/11/17 12:00 Quetiapine Fumarate (SEROquel) 12.5 mg BID PO 04/10/17 09:00 04/11/17 08:26 Bumetanide (Bumex Inj) 1 mg DAILY IV PUSH 04/11/17 09:00 04/11/17 08:25 Acetaminophen/ Hydrocodone Bitart ([place] 7.5-325 Mg) 1 tab Q4H PRN PO PAIN SCALE 1 TO 10 04/10/17 14:45 04/11/17 13:24 Objective Remarks GENERAL: Chronically ill male upright in bed, at bedside SKIN: Warm and dry. HEAD: Normocephalic. EYES: No injection or drainage. NECK: Supple, trachea midline. trach in place CARDIOVASCULAR: Regular rate and rhythm RESPIRATORY: anterior seo with scattered rhonchi. GASTROINTESTINAL: Abdomen soft, non-tender. receiving TF via percutaneous feeding tube. EXTREMITIES: No cyanosis. No edema NEUROLOGICAL: awake and alert. Assessment/Plan Problem List: (1) Oropharyngeal cancer Status: Acute Plan: --palliative care following --patient with poor performance status. --family wanting to pursue aggressive care --on tube feeds w/ Suplena --XRT canceled on 04/07, per XRT he will have to be resimulated. --resimulation on 04/11 (2) DVT (deep venous thrombosis) Status: Acute Plan: +deep vein thrombosis in the right posterior tibial vein. --on Pletal and Eliquis (3) Normocytic anemia Status: Acute Plan: --s/p EGD 03/31--showed blood in hypo and oropharynx --s/p pRBC transfusion --B12 WNL --s/p iron infusion Assessment 66y/o male with recurrent head and neck cancer admitted with aspiration pneumonia and sepsis. h/o Recurrent head and neck cancer. Diabetes type 2. Chronic kidney disease, stage IV. Hyperlipidemia. History of MD 2012. History of PCI and stent placement. Peripheral arterial disease. Hypertension. Plan 1. resimulation in radiation 2. continue tube feeds 3. monitor CBC Attending Statement The exam, history, and the medical decision-making described in the above note were completed with the assistance of the mid-level provider. I reviewed and agree with the findings presented. I attest that I had a [id number] encounter with the patient on the same day, and personally performed and documented my assessment and findings in the medical record. remains debilitated previous attempt to simulate fo XRT unsuccessful due to unable to lye flat and still d/w Dr. Cruz and re-attempt again today Problem Qualifiers (1) DVT (deep venous thrombosis): Qualified Code: I82.441 - Deep vein thrombosis (DVT) of tibial vein of right lower extremity, unspecified chronicity Neeru Pritchett Apr 11, 2017 13:42 Perico Melchor MD Apr 11, 2017 19:41
--- NOTE | 2017-04-11 14:04 | HHI.PR ---
Subjective Remarks Patient reports he is doing okay. His is at bedside. He went for radiation therapy re-simulation today. Objective Vitals Vital Signs Date Time Temp Pulse Resp B/P Pulse Ox O2 Delivery O2 Flow Rate FiO2 04/11/17 13:31 89 04/11/17 08:00 96.1 94 17 151/76 99 04/11/17 07:51 18 04/11/17 04:30 97.0 90 20 147/77 98 04/11/17 00:30 97.1 68 19 152/88 96 04/10/17 21:43 95 Trach Collar 6.00 28 04/10/17 21:30 108 04/10/17 20:47 96.0 95 18 141/77 94 04/10/17 16:00 96.0 98 17 165/96 98 04/10/17 14:47 95 I/O 04/10/17 04/10/17 04/10/17 04/11/17 04/11/17 04/11/17 07:00 15:00 23:00 07:00 15:00 23:00 Intake Total 0 ml 570 ml Balance 0 ml 570 ml Intake Oral 0 ml Tube Feeding 360 ml Tube Irrigant 150 ml Other 60 ml # Voids 5 3 2 # Bowel Movements 3 2 1 Result Diagram: 04/10/17 1249 04/10/17 1249 Objective Remarks GENERAL: Chronically ill appearing male in no apparent distress. Sitting up in the bed NECK: trach in place. CARDIOVASCULAR: Regular rate and rhythm without murmurs, gallops, or rubs. RESPIRATORY: Clear to auscultation. Breath sounds equal bilaterally. No wheezes , rales, or rhonchi. GASTROINTESTINAL: Abdomen soft, non-tender, nondistended. Normal active bowel sounds MUSCULOSKELETAL: Extremities without clubbing, cyanosis, or edema. NEURO: Awake and alert. 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 Status: Acute (3) Head ache ICD Code: R51 Status: Acute (4) Head and neck malignancy ICD Code: C76.0 Status: Acute (5) Pneumonia ICD Code: J18.9 Status: Acute (6) Severe sepsis ICD Code: A41.9 Status: Resolved (7) CKD (chronic kidney disease), stage IV ICD Code: N18.4 Status: Chronic (8) CAD (coronary artery disease) ICD Code: I25.10 Status: Chronic (9) Hypertension ICD Code: I10 Status: Chronic (10) Hyperlipidemia ICD Code: E78.5 Status: Chronic (11) Anemia ICD Code: D64.9 Status: Chronic (12) GI bleed ICD Code: K92.2 Status: Resolved Assessment and Plan 66 Y/O male with: Pneumonia, MRSA, ?aspiration: ID consulted - appreciate recommendations. Monitor off antibiotics. Repeat CXR on 04/05 shows moderate failure - continue diuretics 04/08 sputum culture grew MRSA, however the patient is afebrile and WBC is trending down. Continue to monitor CBC with differential and vital signs. Continue to monitor off antibiotics. MRSA in the sputum is likely colonization. Agitation: Much improved with Seroquel, low dose. 12.5 mg BID. Continue Haldol as needed. GI bleed: Appreciate GI recommendations. S/P EGD. Bleeding from laryngeal mass has resolved. On Apixaban - ok to resume as per GI. Hemoglobin stable Head and neck cancer: Appreciate oncology recommendations. Tube feeds per PEG tube. Tracheostomy in place. XRT restimulation today. Chemotherapy on hold. Chronic kidney disease stage IV:Stable. Avoid nephrotoxins. Acute blood loss anemia: On EGD, bleeding appears to be from laryngeal mass. Hemoglobin improved following transfusion. DVT: Ultrasound shows "probable DVT" in right posterior tibial veins. on Eliquis and Pletal per heme/onc, Chronic pain: Continue with [place], increase to 7.5/325. Poor prognosis: Appreciate palliative care recommendations. Patient would be hospice appropriate, however patient and his family at this time desire aggressive care. Discharge Planning Plan to DC to SNF tomorrow. Problem Qualifiers (1) DVT (deep venous thrombosis): Qualified Code: I82.441 - Deep vein thrombosis (DVT) of tibial vein of right lower extremity, unspecified chronicity (2) Anemia: Qualified Code: D64.9 - Anemia, unspecified type Kyle Kam MD Apr 11, 2017 14:04
--- NOTE | 2017-04-11 17:39 | HHI.PR ---
Subjective Remarks 66 YOWm with Laryngeal ca s/p radiation, trach, GIB,DVT has small amount of trach bloody secretion No fever Tolerates TF Small amount of trach secretions. Awake, follows commands Had radiation re simulation done Objective Vital Signs Vital Signs Date Time Temp Pulse Resp B/P Pulse Ox O2 Delivery O2 Flow Rate FiO2 04/11/17 14:57 95 Trach Collar 28 04/11/17 13:31 89 04/11/17 08:00 96.1 94 17 151/76 99 04/11/17 07:51 18 04/11/17 04:30 97.0 90 20 147/77 98 04/11/17 00:30 97.1 68 19 152/88 96 04/10/17 21:43 95 Trach Collar 6.00 28 04/10/17 21:30 108 04/10/17 20:47 96.0 95 18 141/77 94 I/O 04/10/17 04/10/17 04/10/17 04/11/17 04/11/17 04/11/17 07:00 15:00 23:00 07:00 15:00 23:00 Intake Total 0 ml 570 ml Balance 0 ml 570 ml Intake Oral 0 ml Tube Feeding 360 ml Tube Irrigant 150 ml Other 60 ml # Voids 5 3 2 # Bowel Movements 3 2 1 Result Diagram: 04/10/17 1249 04/10/17 1249 Objective Remarks GENERAL: MBMN WM, NAD SKIN: Warm and dry. HEAD: Normocephalic. EYES: No scleral icterus. No injection or drainage. NECK: Supple, trachea midline. No JVD or lymphadenopathy. has trach CARDIOVASCULAR: Regular rate and rhythm without murmurs, gallops, or rubs. RESPIRATORY: Breath sounds equal bilaterally. No accessory muscle use. GASTROINTESTINAL: Abdomen soft, non-tender, nondistended. has PEG tube MUSCULOSKELETAL: No cyanosis, or edema. BACK: Nontender without obvious deformity. No CVA tenderness. A/P Assessment and Plan RF,S/P Trach Hemoptysis mild DVT laryngeal ca, s/p radiation PLAN Cont Abx Trach care monitor hemoptysis Aerosol nebs TF Real Coffey MD Apr 11, 2017 17:39
[2017-04-11] MEDS: DOCUSATE SODIUM 50 MG/SENNA 8.6 MG TAB PO SCH (21:43)
[2017-04-11] MEDS ORDERED: VANCOMYCIN INJ 1,250 MG in SODIUM CHLOR 0.9% 250 ML INJ 250 ML IV ONE (22:00)
[2017-04-12] VITALS (8 sets, daily range): BP systolic 111–167; BP diastolic 51–81; PULSE 78–98; RESP 15–22; TEMP 97.4–98.3; O2SAT 90–98
[2017-04-12] MEDS: ACETAMINOPHEN/HYDROcodone 325 MG/7.5 MG TAB PO PRN ×4 (03:37→20:27)
[2017-04-12] MEDS: RESP: ALBUTEROL 2.5 MG/IPRATROPIUM 0.5 MG NEB (PRN) INH (03:41)
[2017-04-12] MEDS: CHLORHEXIDINE GLUCONATE 2 % 1 PACK (2 CLOTHS) TOP SCH (03:54)
[2017-04-12] MEDS: FREE WATER G-TUBE SCH ×4 (06:00→18:00)
[2017-04-12] MEDS: INSULIN ASPART SUPPLEMENTAL SCALE SQ SCH ×4 (06:11→21:37)
[2017-04-12] MEDS: CILOSTAZOL 50 MG TAB G-TUBE SCH ×2 (07:56→21:34)
[2017-04-12] MEDS: APIXABAN 5 MG TABLET PO SCH ×2 (07:56→21:35)
[2017-04-12] MEDS: METOPROLOL TARTRATE 50 MG TAB G-TUBE SCH ×2 (07:57→21:35)
[2017-04-12] MEDS: HYOSCYAMINE 0.125 MG TAB G-TUBE SCH ×2 (07:57→21:35)
[2017-04-12] MEDS: BUMETANIDE 1 MG TAB PO SCH (07:57)
[2017-04-12] MEDS: QUEtiapine FUMARATE 25 MG TAB PO SCH ×2 (07:57→21:35)
[2017-04-12] MEDS: SODIUM CHLORIDE 0.9% FLUSH 10 ML FLUSH IV FLUSH SCH ×2 (07:59→21:35)
[2017-04-12] MEDS: CHLORHEXIDINE 0.12% (ORAL KIT) 15 ML CUP MT SCH ×2 (08:00→20:00)
[2017-04-12] MEDS ORDERED: PANTOPRAZOLE SOD 40 MG DELAYED RELEASE TAB PO SCH (09:00)
--- NOTE | 2017-04-12 10:17 | HHI.PR ---
Subjective Remarks 66 YOWm with Laryngeal ca s/p radiation, trach, GIB,DVT had small amount of trach bloody secretion No fever Tolerates TF Awake, follows commands. Put on PMV, tolerates it Objective Vital Signs Vital Signs Date Time Temp Pulse Resp B/P Pulse Ox O2 Delivery O2 Flow Rate FiO2 04/12/17 08:00 98.1 95 15 167/72 96 04/12/17 04:37 18 04/12/17 04:00 97.6 81 22 116/57 96 04/12/17 00:00 97.8 78 20 111/51 96 04/11/17 22:50 85 04/11/17 22:30 108 04/11/17 20:53 96 Trach Collar 5.00 28 04/11/17 20:00 97.1 84 22 125/67 99 04/11/17 16:00 96.5 86 17 129/69 98 04/11/17 14:57 95 Trach Collar 28 04/11/17 13:31 89 04/11/17 12:00 96.6 97 17 129/68 99 I/O 04/11/17 04/11/17 04/11/17 04/12/17 04/12/17 04/12/17 07:00 15:00 23:00 07:00 15:00 23:00 Intake Total 570 ml 350 ml Balance 570 ml 350 ml IV Total 200 ml Tube Feeding 360 ml Tube Irrigant 150 ml Other 60 ml 150 ml # Voids 2 4 0 # Bowel Movements 1 1 Result Diagram: 04/10/17 1249 04/10/17 1249 Objective Remarks GENERAL: MBMN WM, NAD SKIN: Warm and dry. HEAD: Normocephalic. EYES: No scleral icterus. No injection or drainage. NECK: Supple, trachea midline. No JVD or lymphadenopathy. has trach CARDIOVASCULAR: Regular rate and rhythm without murmurs, gallops, or rubs. RESPIRATORY: Breath sounds equal bilaterally. No accessory muscle use. GASTROINTESTINAL: Abdomen soft, non-tender, nondistended. has PEG tube MUSCULOSKELETAL: No cyanosis, or edema. BACK: Nontender without obvious deformity. No CVA tenderness. A/P Assessment and Plan RF,S/P Trach Hemoptysis mild DVT laryngeal ca, s/p radiation PLAN Cont Abx Trach care monitor hemoptysis Aerosol nebs TF PMV trial. Real Coffey MD Apr 12, 2017 10:17
--- NOTE | 2017-04-12 13:16 | HHI.PR ---
Subjective Remarks Passy-Trixie valve trial per pulmonology. Patient able to communicate now. Reports he is doing okay except for some intermittent abdominal discomfort. Objective Vitals Vital Signs Date Time Temp Pulse Resp B/P Pulse Ox O2 Delivery O2 Flow Rate FiO2 04/12/17 08:00 98.1 95 15 167/72 96 04/12/17 04:37 18 04/12/17 04:00 97.6 81 22 116/57 96 04/12/17 00:00 97.8 78 20 111/51 96 04/11/17 22:50 85 04/11/17 22:30 108 04/11/17 20:53 96 Trach Collar 5.00 28 04/11/17 20:00 97.1 84 22 125/67 99 04/11/17 16:00 96.5 86 17 129/69 98 04/11/17 14:57 95 Trach Collar 28 04/11/17 13:31 89 I/O 04/11/17 04/11/17 04/11/17 04/12/17 04/12/17 04/12/17 07:00 15:00 23:00 07:00 15:00 23:00 Intake Total 570 ml 350 ml Balance 570 ml 350 ml IV Total 200 ml Tube Feeding 360 ml Tube Irrigant 150 ml Other 60 ml 150 ml # Voids 2 4 0 # Bowel Movements 1 1 Result Diagram: 04/10/17 1249 04/10/17 1249 Objective Remarks GENERAL: Chronically ill appearing male in no apparent distress. Sitting up in the bed NECK: trach in place. CARDIOVASCULAR: Regular rate and rhythm without murmurs, gallops, or rubs. RESPIRATORY: Clear to auscultation. Breath sounds equal bilaterally. No wheezes , rales, or rhonchi. GASTROINTESTINAL: Abdomen soft, non-tender, nondistended. Normal active bowel sounds MUSCULOSKELETAL: Extremities without clubbing, cyanosis, or edema. NEURO: Awake and alert. 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 Status: Acute (3) Head ache ICD Code: R51 Status: Acute (4) Head and neck malignancy ICD Code: C76.0 Status: Acute (5) Pneumonia ICD Code: J18.9 Status: Acute (6) Severe sepsis ICD Code: A41.9 Status: Resolved (7) CKD (chronic kidney disease), stage IV ICD Code: N18.4 Status: Chronic (8) CAD (coronary artery disease) ICD Code: I25.10 Status: Chronic (9) Hypertension ICD Code: I10 Status: Chronic (10) Hyperlipidemia ICD Code: E78.5 Status: Chronic (11) Anemia ICD Code: D64.9 Status: Chronic (12) GI bleed ICD Code: K92.2 Status: Resolved Assessment and Plan 66 Y/O male with: Pneumonia, MRSA, ?aspiration, trached.: ID consulted - appreciate recommendations. Monitor off antibiotics. Repeat CXR on 04/05 shows moderate failure - continue diuretics 04/08 sputum culture grew MRSA, however the patient is afebrile and WBC is trending down. Continue to monitor CBC with differential and vital signs. Continue to monitor off antibiotics. MRSA in the sputum is likely colonization. - Trach care per pulmonology. Passy-Trixie valve trials starting today. Agitation: Much improved with Seroquel, low dose. 12.5 mg BID. Continue Haldol as needed. GI bleed: Appreciate GI recommendations. S/P EGD. Bleeding from laryngeal mass has resolved. On Apixaban - ok to resume as per GI. Hemoglobin stable Head and neck cancer: Appreciate oncology recommendations. Tube feeds per PEG tube. Tracheostomy in place. XRT restimulation on 04/11/17. Chemotherapy on hold. Chronic kidney disease stage IV:Stable. Avoid nephrotoxins. Acute blood loss anemia: On EGD, bleeding appears to be from laryngeal mass. Hemoglobin improved following transfusion. DVT: Ultrasound shows "probable DVT" in right posterior tibial veins. on Eliquis and Pletal per heme/onc, Chronic pain: Continue with [place], increase dose of 7.5/325. Discharge Planning Patient declined by [facility]. Case management assisting with SNF placement. Problem Qualifiers (1) DVT (deep venous thrombosis): Qualified Code: I82.441 - Deep vein thrombosis (DVT) of tibial vein of right lower extremity, unspecified chronicity (2) Anemia: Qualified Code: D64.9 - Anemia, unspecified type Kyle Kam MD Apr 12, 2017 13:16
[2017-04-12] MEDS: LANSOPRAZOLE SOLUTAB 30 MG TAB NG SCH (15:08)
[2017-04-12] MEDS: ALPRAZolam 0.25 MG TAB PO PRN (15:08)
[2017-04-12] MEDS ORDERED: PHARMACY ORDERED LAB ONE (16:00)
[2017-04-12 18:08] LABS: BICARBONATE 27.3 MEQ/L (21.0-32.0); MAGNESIUM 2.1 MG/DL (1.5-2.5)
[2017-04-12] MEDS: ONDANSETRON HCL 4 MG/2 ML VIAL IV PUSH PRN (20:26)
[2017-04-12] MEDS: HALOPERIDOL LACTATE 5 MG/ML AMP IV PRN (23:42)
[2017-04-13] VITALS (9 sets, daily range): BP systolic 127–160; BP diastolic 53–81; PULSE 86–100; RESP 18–22; TEMP 97.6–99.5; O2SAT 94–100
[2017-04-13] MEDS: ALPRAZolam 0.25 MG TAB PO PRN ×2 (01:53→20:21)
[2017-04-13] MEDS: CHLORHEXIDINE GLUCONATE 2 % 1 PACK (2 CLOTHS) TOP SCH (04:00)
[2017-04-13] MEDS: FREE WATER G-TUBE SCH ×4 (06:00→18:00)
[2017-04-13] MEDS: INSULIN ASPART SUPPLEMENTAL SCALE SQ SCH ×4 (06:11→20:21)
[2017-04-13] MEDS: CILOSTAZOL 50 MG TAB G-TUBE SCH ×2 (07:46→20:21)
[2017-04-13] MEDS: LANSOPRAZOLE SOLUTAB 30 MG TAB NG SCH (07:46)
[2017-04-13] MEDS: METOPROLOL TARTRATE 50 MG TAB G-TUBE SCH ×2 (07:46→20:21)
[2017-04-13] MEDS: QUEtiapine FUMARATE 25 MG TAB PO SCH ×2 (07:46→20:20)
[2017-04-13] MEDS: BUMETANIDE 1 MG TAB PO SCH (07:46)
[2017-04-13] MEDS: APIXABAN 5 MG TABLET PO SCH ×2 (07:46→20:20)
[2017-04-13] MEDS: SODIUM CHLORIDE 0.9% FLUSH 10 ML FLUSH IV FLUSH SCH ×2 (07:47→20:21)
[2017-04-13] MEDS: HYOSCYAMINE 0.125 MG TAB G-TUBE SCH ×2 (07:47→20:21)
[2017-04-13] MEDS: CHLORHEXIDINE 0.12% (ORAL KIT) 15 ML CUP MT SCH ×2 (08:00→20:00)
--- NOTE | 2017-04-13 10:39 | HHI.PR ---
Subjective Remarks No acute events overnight. Tachycardic to 100 this morning. Patient with no complaints at this time. Denies any pain or shortness of breath. Remains in restraints. Objective Vitals Vital Signs Date Time Temp Pulse Resp B/P Pulse Ox O2 Delivery O2 Flow Rate FiO2 04/13/17 08:07 98.2 100 22 127/53 95 04/13/17 04:11 94 04/13/17 03:54 98.6 89 18 160/73 95 04/13/17 00:00 98.3 89 18 128/76 100 04/12/17 22:55 98 T-piece 5.00 28 04/12/17 20:51 98.3 98 18 159/81 90 04/12/17 16:00 97.7 90 17 131/72 91 04/12/17 12:00 97.4 81 16 140/74 96 I/O 04/12/17 04/12/17 04/12/17 04/13/17 04/13/17 04/13/17 07:00 15:00 23:00 07:00 15:00 23:00 Intake Total 350 ml 200 ml Output Total 600 ml 300 ml Balance 350 ml -600 ml -100 ml IV Total 200 ml Other 150 ml 200 ml Output Urine Total 600 ml 300 ml # Voids 0 Result Diagram: 04/10/17 1249 04/12/17 1618 Objective Remarks GENERAL: Chronically ill appearing male in no apparent distress. Sitting up in the bed. in restraints. NECK: trach in place. CARDIOVASCULAR: Regular rate and rhythm without murmurs, gallops, or rubs. RESPIRATORY: Clear to auscultation. Breath sounds equal bilaterally. No wheezes , rales, or rhonchi. GASTROINTESTINAL: Abdomen soft, non-tender, nondistended. Normal active bowel sounds MUSCULOSKELETAL: Extremities without clubbing, cyanosis, or edema. NEURO: Awake and alert. 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 Status: Acute (3) Head ache ICD Code: R51 Status: Acute (4) Head and neck malignancy ICD Code: C76.0 Status: Acute (5) Pneumonia ICD Code: J18.9 Status: Acute (6) Severe sepsis ICD Code: A41.9 Status: Resolved (7) CKD (chronic kidney disease), stage IV ICD Code: N18.4 Status: Chronic (8) CAD (coronary artery disease) ICD Code: I25.10 Status: Chronic (9) Hypertension ICD Code: I10 Status: Chronic (10) Hyperlipidemia ICD Code: E78.5 Status: Chronic (11) Anemia ICD Code: D64.9 Status: Chronic (12) GI bleed ICD Code: K92.2 Status: Resolved Assessment and Plan 66 Y/O male with: Pneumonia, MRSA, ?aspiration, trached.: ID consulted - appreciate recommendations. Monitor off antibiotics. Repeat CXR on 04/05 shows moderate failure - continue diuretics 04/08 sputum culture grew MRSA, however the patient is afebrile and WBC is trending down. Continue to monitor CBC with differential and vital signs. Continue to monitor off antibiotics. MRSA in the sputum is likely colonization. - Trach care per pulmonology. Passy-Trixie valve trials. Agitation: Much improved with Seroquel, low dose. 12.5 mg BID. Continue Haldol as needed. Remains in restraints. Will need to be off restraints prior to placement. GI bleed: Appreciate GI recommendations. S/P EGD. Bleeding from laryngeal mass has resolved. On Apixaban - ok to resume as per GI. Hemoglobin stable Head and neck cancer: Appreciate oncology recommendations. Tube feeds per PEG tube. Tracheostomy in place. XRT restimulation on 04/11/17. Chemotherapy on hold. Chronic kidney disease stage IV: Stable. Avoid nephrotoxins. Acute blood loss anemia: On EGD, bleeding appears to be from laryngeal mass. Hemoglobin improved following transfusion. DVT: Ultrasound shows "probable DVT" in right posterior tibial veins. on Eliquis and Pletal per heme/onc, Chronic pain: Continue with [place], increase dose of 7.5/325. Discharge Planning [facility] refused patient. Per case management reports, is willing to start touring SNFs. Case management to assist with placement. Problem Qualifiers (1) DVT (deep venous thrombosis): Qualified Code: I82.441 - Deep vein thrombosis (DVT) of tibial vein of right lower extremity, unspecified chronicity (2) Anemia: Qualified Code: D64.9 - Anemia, unspecified type Latoya Dorado MD R3 Apr 13, 2017 10:39
[2017-04-13 12:31] LABS: HEMATOCRIT 34.8 % (39.0-51.0); MEAN CELL VOLUME 88.5 FL (80.0-100.0); MEAN CORPUSCULAR HEMOGLOBIN 28.4 PG (27.0-34.0); MEAN CORPUSCULAR HGB CONC 32.1 % (32.0-36.0); PLATELET COUNT 193 TH/MM3 (150-450); RED BLOOD COUNT 3.93 MIL/MM3 (4.50-5.90); RED CELL DISTRIBUTION WIDTH 21.7 % (11.6-17.2); REVIEW FLAG FINAL; WHITE BLOOD COUNT 9.5 TH/MM3 (4.0-11.0)
[2017-04-13 12:56] LABS: BICARBONATE 25.8 MEQ/L (21.0-32.0); POTASSIUM 4.5 MEQ/L (3.5-5.1)
--- NOTE | 2017-04-13 13:53 | HHI.PR ---
Subjective Remarks 66 YOWm with Laryngeal ca s/p radiation, trach, GIB,DVT had small amount of trach bloody secretion No fever Tolerates TF Awake, follows commands. On T-Tube Objective Vital Signs Vital Signs Date Time Temp Pulse Resp B/P Pulse Ox O2 Delivery O2 Flow Rate FiO2 04/13/17 12:19 97.6 89 20 145/81 94 04/13/17 08:07 98.2 100 22 127/53 95 04/13/17 04:11 94 04/13/17 03:54 98.6 89 18 160/73 95 04/13/17 00:00 98.3 89 18 128/76 100 04/12/17 22:55 98 T-piece 5.00 28 04/12/17 20:51 98.3 98 18 159/81 90 04/12/17 16:00 97.7 90 17 131/72 91 I/O 04/12/17 04/12/17 04/12/17 04/13/17 04/13/17 04/13/17 06:59 14:59 22:59 06:59 14:59 22:59 Intake Total 350 ml 200 ml Output Total 600 ml 300 ml Balance 350 ml -600 ml -100 ml IV Total 200 ml Other 150 ml 200 ml Output Urine Total 600 ml 300 ml # Voids 0 Result Diagram: 04/13/17 1211 04/13/17 1211 Objective Remarks GENERAL: MBMN WM, NAD SKIN: Warm and dry. HEAD: Normocephalic. EYES: No scleral icterus. No injection or drainage. NECK: Supple, trachea midline. No JVD or lymphadenopathy. has trach CARDIOVASCULAR: Regular rate and rhythm without murmurs, gallops, or rubs. RESPIRATORY: Breath sounds equal bilaterally. No accessory muscle use. GASTROINTESTINAL: Abdomen soft, non-tender, nondistended. has PEG tube MUSCULOSKELETAL: No cyanosis, or edema. BACK: Nontender without obvious deformity. No CVA tenderness. A/P Assessment and Plan RF,S/P Trach Hemoptysis mild DVT laryngeal ca, s/p radiation PLAN Cont Abx Trach care monitor hemoptysis Aerosol nebs TF Real Coffey MD Apr 13, 2017 13:53
[2017-04-13] MEDS: ACETAMINOPHEN/HYDROcodone 325 MG/7.5 MG TAB PO PRN (17:51)
[2017-04-14] VITALS (12 sets, daily range): BP systolic 122–150; BP diastolic 61–74; PULSE 63–112; RESP 18–22; TEMP 97.5–98.7; O2SAT 92–100
[2017-04-14] MEDS: CHLORHEXIDINE GLUCONATE 2 % 1 PACK (2 CLOTHS) TOP SCH (00:16)
[2017-04-14] MEDS: ACETAMINOPHEN/HYDROcodone 325 MG/7.5 MG TAB PO PRN ×4 (01:33→20:48)
[2017-04-14] MEDS: ALPRAZolam 0.25 MG TAB PO PRN ×2 (05:20→20:48)
[2017-04-14] MEDS: INSULIN ASPART SUPPLEMENTAL SCALE SQ SCH ×4 (05:33→20:46)
[2017-04-14] MEDS: FREE WATER G-TUBE SCH ×4 (06:00→18:00)
[2017-04-14] MEDS: CILOSTAZOL 50 MG TAB G-TUBE SCH ×2 (07:38→20:48)
[2017-04-14] MEDS: METOPROLOL TARTRATE 50 MG TAB G-TUBE SCH ×2 (07:38→20:48)
[2017-04-14] MEDS: HYOSCYAMINE 0.125 MG TAB G-TUBE SCH ×2 (07:38→20:48)
[2017-04-14] MEDS: BUMETANIDE 1 MG TAB PO SCH (07:39)
[2017-04-14] MEDS: QUEtiapine FUMARATE 25 MG TAB PO SCH ×2 (07:39→20:48)
[2017-04-14] MEDS: LANSOPRAZOLE SOLUTAB 30 MG TAB NG SCH (07:39)
[2017-04-14] MEDS: APIXABAN 5 MG TABLET PO SCH ×2 (07:39→20:48)
[2017-04-14] MEDS: SODIUM CHLORIDE 0.9% FLUSH 10 ML FLUSH IV FLUSH SCH ×2 (07:47→21:00)
[2017-04-14] MEDS: CHLORHEXIDINE 0.12% (ORAL KIT) 15 ML CUP MT SCH ×2 (08:00→19:27)
--- NOTE | 2017-04-14 08:53 | HHI.PR ---
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 Multispecialty management. Palliative Care following, family wanted to pursue aggressive care, Tube feedings continue, DVT on Pletal and Eliquis, status post EGD 03/31 due to anemia Status post blood transfusion, Oncology recommended to Re-simulate Radiation. 04/14: Seen in his bedroom and discussed with nurse Mr. Nazario the patient is Lethargic, discussed with prevention specialist [employer] TE[employer]CH[employer]IC as per Oncology the patient is candidate for Hospice, and is not expected that he may have his Stimulation by computer technical support specialist he he has very poor prognosis, will try to discuss with his during the afternoon because she wants to continue aggressive care and will go home with [facility]. Objective Vital Signs Date Time Temp Pulse Resp B/P Pulse Ox O2 Delivery O2 Flow Rate FiO2 04/14/17 08:05 98.2 88 20 122/61 100 04/14/17 06:30 69 04/14/17 05:31 98.2 82 22 144/71 99 04/14/17 04:00 97.5 63 18 147/65 96 04/14/17 03:42 92 T-piece 5.00 40 04/14/17 00:18 112 04/14/17 00:00 98.7 82 20 134/67 97 04/13/17 23:20 100 T-piece 5.00 28 04/13/17 20:00 98.8 86 20 135/65 97 04/13/17 19:00 T-Piece 5.00 28 Humidified 04/13/17 16:28 99.5 96 20 139/71 100 04/13/17 15:07 94 T-piece 28 04/13/17 12:19 97.6 89 20 145/81 94 I/O 04/13/17 04/13/17 04/13/17 04/14/17 04/14/17 04/14/17 07:00 15:00 23:00 07:00 15:00 23:00 Intake Total 200 ml 200 ml Output Total 300 ml 1300 ml Balance -100 ml -1300 ml 200 ml Other 200 ml 200 ml Output Urine Total 300 ml 1300 ml # Voids 2 # Bowel Movements 2 Result Diagram: 04/13/17 1211 04/13/17 1211 Imaging Last Impressions Chest X-Ray 04/10/17 0600 Signed Impressions: Service Date/Time: April 06:36 - CONCLUSION: Slight increased prominence a left pleural effusion with stable findings of CHF Oscar Verdugo MD Upper Extremity Ultrasound 03/25/17 0000 Signed Impressions: Service Date/Time: Saturday, March 25, 2017 16:31 - CONCLUSION: 1. Occlusive thrombus in the right cephalic vein. 2. No deep venous thrombosis left arm. Dakota Suarez MD Lung Scan-V Nuclear Medicine 03/25/17 0000 Signed Impressions: Service Date/Time: Saturday, March 25, 2017 13:39 - CONCLUSION: No scintigraphic findings of pulmonary embolus. Jacky Guadarrama MD Lower Extremity Ultrasound 03/25/17 0000 Signed Impressions: Service Date/Time: Saturday, March 25, 2017 16:03 - CONCLUSION: Probable deep venous thrombosis within the right posterior tibial veins. Bret Calderón MD Head CT 03/25/17 0000 Signed Impressions: Service Date/Time: Saturday, March 25, 2017 11:52 - CONCLUSION: 1. Moderate cerebral atrophy. 2. Old lacunar infarcts within the bilateral basal ganglia. 3. No acute infarct, acute hemorrhage, mass effect or extra axial fluid collections. Bret Calderón MD Procedures None Other Results Laboratory Tests Test 04/12/17 04/13/17 16:18 12:11 Magnesium Level 2.1 MG/DL White Blood Count 9.5 TH/MM3 Red Blood Count 3.93 MIL/MM3 Hemoglobin 11.2 GM/DL Hematocrit 34.8 % Mean Corpuscular Volume 88.5 FL Mean Corpuscular Hemoglobin 28.4 PG Mean Corpuscular Hemoglobin 32.1 % Concent Red Cell Distribution Width 21.7 % Platelet Count 193 TH/MM3 Mean Platelet Volume 9.7 FL Sodium Level 139 MEQ/L Potassium Level 4.5 MEQ/L Chloride Level 105 MEQ/L Carbon Dioxide Level 25.8 MEQ/L Anion Gap 8 MEQ/L Blood Urea Nitrogen 28 MG/DL Creatinine 1.78 MG/DL Estimat Glomerular Filtration 38 ML/MIN Rate Random Glucose 151 MG/DL Calcium Level 8.7 MG/DL Random Vancomycin Level 21.9 COMMENT Objective Remarks GENERAL: Chronically ill appearing male in no apparent distress. Lethargic NECK: trach in place. CARDIOVASCULAR: Regular rate and rhythm without murmurs, gallops, or rubs. RESPIRATORY: Clear to auscultation. Breath sounds equal bilaterally. No wheezes , rales, or rhonchi. GASTROINTESTINAL: Abdomen soft, non-tender, nondistended. Normal active bowel sounds MUSCULOSKELETAL: Extremities without clubbing, cyanosis, or edema. NEURO: Awake and alert. Medications and IVs Current Medications Medications (Trade) Dose Ordered Sig/Alea Route Start Time Stop Time Status Last Admin (NS Flush) 2 ml UNSCH PRN IV FLUSH 03/25/17 14:45 04/07/17 18:36 (NS Flush) 2 ml BID IV FLUSH 03/25/17 21:00 04/14/17 07:47 (Tylenol) 650 mg Q6H PRN PO 03/25/17 14:45 04/10/17 11:58 Miscellaneous Information 1 Q361D XX 03/25/17 14:45 (Chlorhexidine 2% Cloth) 3 pack Taper DAILY@04 TOP 03/26/17 04:00 03/22/18 03:59 03/27/17 02:59 (Chlorhexidine 2% Cloth) 3 pack UNSCH PRN TOP 03/25/17 14:45 (Genoveva-Colace) 1 tab BID PO 03/25/17 21:00 Hold 04/11/17 21:43 (Milk Of Magnesia Liq) 30 ml Q12H PRN PO 03/25/17 14:45 (Senokot) 17.2 mg Q12H PRN PO 03/25/17 14:45 Hold (Dulcolax Supp) 10 mg DAILY PRN RECTAL 03/25/17 14:45 (Lactulose Liq) 30 ml DAILY PRN PO 03/25/17 14:45 (Peridex 0.12% Liq) 15 ml BID@08,20 MT 03/25/17 20:00 04/12/17 20:00 (D50w (Vial) Inj) 50 ml UNSCH PRN IV 03/25/17 15:00 (Glucagon Inj) 1 mg UNSCH PRN OTHER 03/25/17 15:00 (Pletal) 50 mg BID G-TUBE 03/26/17 09:00 04/14/17 07:38 (Levsin) 0.125 mg BID G-TUBE 03/26/17 09:00 04/14/17 07:38 (Lopressor) 50 mg BID G-TUBE 03/26/17 09:00 04/14/17 07:38 (Xanax) 0.25 mg Q8H PRN PO 03/26/17 17:00 04/14/17 05:20 Haloperidol Lactate 2 mg 2 mg Q4H PRN IV 03/27/17 16:30 04/12/17 23:42 (Vancomycin Consult Pharmacy) 0 ml @ 0 mls/hr UNSCH OTHER 03/28/17 15:15 (Zofran Inj) 4 mg Q6HR PRN IV PUSH 04/02/17 14:45 04/12/17 20:26 (Eliquis) 5 mg BID PO 04/03/17 21:00 04/14/17 07:39 (Nitrostat Sl) 0.3 mg Q5M PRN SL 04/05/17 20:00 04/08/17 00:52 (Free Water) VOLUME OF WATER: ( 150 ) ML Q6HR G-TUBE 04/08/17 18:00 04/14/17 06:00 (SEROquel) 12.5 mg BID PO 04/10/17 09:00 04/14/17 07:39 (Pill Splitter) 1 ea UNSCH PRN OTHER 04/09/17 15:15 ([place] 7.5-325 Mg) 1 tab Q4H PRN PO 04/10/17 14:45 04/14/17 01:33 (Bumetanide) 1 mg DAILY PO 04/12/17 09:00 04/14/17 07:39 (Prevacid Odt) 30 mg DAILY NG 04/12/17 15:00 04/14/17 07:39 A/P Assessment and Plan Pneumonia, MRSA, ?aspiration, trached.: ID consulted - appreciate recommendations. Monitor off antibiotics. Repeat CXR on 04/05 shows moderate failure - continue diuretics 04/08 sputum culture grew MRSA, however the patient is afebrile and WBC is trending down. Continue to monitor CBC with differential and vital signs. Continue to monitor off antibiotics. MRSA in the sputum is likely colonization. - Trach care per pulmonology. Passy-Brewster valve trials. Agitation: Much improved with Seroquel, low dose. 12.5 mg BID. Continue Haldol as needed. Remains in restraints. Will need to be off restraints prior to placement. as per nurse his asking for Home with [facility] will follow during the afternoon for discharge GI bleed: Appreciate GI recommendations. S/P EGD. Bleeding from laryngeal mass has resolved. On Apixaban - ok to resume as per GI. Hemoglobin stable Head and neck cancer: Appreciate oncology recommendations. Tube feeds per PEG tube. Tracheostomy in place. as per prevention specialist he was already recommended for Hospice but his preferred for aggressive management, she will decide later for Home with [facility]. Chronic kidney disease stage IV: Stable. Avoid nephrotoxins. Acute blood loss anemia: On EGD, bleeding appears to be from laryngeal mass. Hemoglobin improved following transfusion. DVT: Ultrasound shows "probable DVT" in right posterior tibial veins. on Eliquis and Pletal per heme/onc, Chronic pain: Continue with [place], increase dose of 7.5/325. Very Poor short term prognosis Oncology do not expect the patient to be able to go for Stimulation for Radiation therapy. was tried on two opportunities and failed due to that the patient was not able to be flat for the procedure. Discharge Planning Okay to discharge to SNF versus Home with [facility] depend of his decision. Anil Slater MD Apr 14, 2017 08:53
[2017-04-14 12:06] LABS: HEMATOCRIT 30.9 % (39.0-51.0); MEAN CELL VOLUME 87.7 FL (80.0-100.0); MEAN CORPUSCULAR HEMOGLOBIN 28.6 PG (27.0-34.0); MEAN CORPUSCULAR HGB CONC 32.6 % (32.0-36.0); PLATELET COUNT 170 TH/MM3 (150-450); RED BLOOD COUNT 3.52 MIL/MM3 (4.50-5.90); RED CELL DISTRIBUTION WIDTH 21.9 % (11.6-17.2); WHITE BLOOD COUNT 7.1 TH/MM3 (4.0-11.0)
[2017-04-14 12:21] LABS: HEMO FLAGS AUTO DIFF
[2017-04-14 12:34] LABS: BICARBONATE 26.3 MEQ/L (21.0-32.0); POTASSIUM 4.3 MEQ/L (3.5-5.1)
[2017-04-14] MEDS: ONDANSETRON HCL 4 MG/2 ML VIAL IV PUSH PRN (13:34)
[2017-04-14 14:54] LABS: BANDS 6 % (0-6); NEUTROPHIL # MANUAL DIFF 6.5 TH/MM3 (1.8-7.7); PLATELET ESTIMATE SMEAR NORMAL (NORMAL); PLATELET MORPHOLOGY ENLARGED (NORMAL); POLYS (SEG NEUTROPHILS) 85 % (16-70); SCAN/DIFF FINAL DIFF MANUAL; WBC DIFF SAMPLE 100
[2017-04-14] MEDS ORDERED: VANCOMYCIN 1,000 MG/NS 250 ML IV SCH ×2 (16:00)
[2017-04-14] MEDS ORDERED: ACETAMINOPHEN 325 MG TAB PO PRN (16:15)
--- NOTE | 2017-04-14 16:44 | HHI.FF ---
Face to Face Verification Diagnosis: (1) Airway obstruction (2) Congestive heart failure (CHF) (3) Aspiration pneumonia (4) Complication of tracheostomy tube (5) DVT (deep venous thrombosis) (6) Laryngeal cancer Physical Therapy Order: Evaluate and Treat, Improve ambulation, Strength and gait training Occupational Therapy Order: Evaluate and Treat, Improve ADL, Gross motor coordination, Fine motor coordination Speech Therapy Order: To Improve: Speech and communication skills, Cognitive skills, Swallowing Home Health Nursing Order: Medical education Signs/symptoms of disease process Oxygen administration education Medication education-adverse effect Wound care and dressing changes Nursing assessment with vital signs Instructions: Tracheostomy management Home Health Aide Order: To Assist In: Bathing and personal care, component inspector and meal prep I have seen patient Johnny Iverson on 04/14/17. My clinical findings support the need for the requested home health care services because: Ltd mobility - disease progression Deconditioned w/ increased weakness Limited ability to care for self I certify that my clinical findings support that this patient is homebound because: Unsafe to leave home unassisted [id number] bed/chair Anil Slater MD Apr 14, 2017 16:44
[2017-04-14] MEDS ORDERED: VANCOMYCIN 1,000 MG/NS 250 ML IV ONE ×2 (18:00)
--- NOTE | 2017-04-14 22:47 | PD.ONC.PN ---
Subjective Subjective Remarks clinically unchanged weak and deconditioned unable to receive XRT since can not stay flat placement to SNF/rehab does not want hospice/palliative care Objective Data Date Time Temp Pulse Resp B/P Pulse Ox O2 Delivery O2 Flow Rate FiO2 04/14/17 20:00 97.9 97 20 147/66 95 04/14/17 19:00 T-Piece 5.00 40 Humidified 04/14/17 16:34 18 04/14/17 15:48 98.3 88 20 150/74 99 04/14/17 11:44 98.6 85 20 130/74 95 04/14/17 08:05 98.2 88 20 122/61 100 04/14/17 07:37 100 T-Piece Humidified 04/14/17 07:30 83 04/14/17 06:30 69 04/14/17 05:31 98.2 82 22 144/71 99 04/14/17 04:00 97.5 63 18 147/65 96 04/14/17 03:42 92 T-piece 5.00 40 04/14/17 00:18 112 04/14/17 00:00 98.7 82 20 134/67 97 04/13/17 23:20 100 T-piece 5.00 28 04/14/17 04/14/17 04/14/17 07:00 15:00 23:00 Intake Total 200 ml Output Total 200 ml Balance 200 ml -200 ml Result Diagram: 04/14/17 1040 04/14/17 1040 Laboratory Results Laboratory Tests Test 04/14/17 10:40 White Blood Count 7.1 TH/MM3 Red Blood Count 3.52 MIL/MM3 Hemoglobin 10.1 GM/DL Hematocrit 30.9 % Mean Corpuscular Volume 87.7 FL Mean Corpuscular Hemoglobin 28.6 PG Mean Corpuscular Hemoglobin 32.6 % Concent Red Cell Distribution Width 21.9 % Platelet Count 170 TH/MM3 Mean Platelet Volume 10.2 FL Neutrophils (%) (Auto) % Lymphocytes (%) (Auto) % Monocytes (%) (Auto) % Eosinophils (%) (Auto) % Basophils (%) (Auto) % Neutrophils # (Auto) TH/MM3 Lymphocytes # (Auto) TH/MM3 Monocytes # (Auto) TH/MM3 Eosinophils # (Auto) TH/MM3 Basophils # (Auto) TH/MM3 CBC Comment AUTO DIFF Differential Total Cells 100 Counted Neutrophils % (Manual) 85 % Band Neutrophils % 6 % Lymphocytes % 3 % Monocytes % 6 % Neutrophils # (Manual) 6.5 TH/MM3 Differential Comment FINAL DIFF MANUAL Platelet Estimate NORMAL Platelet Morphology Comment ENLARGED Sodium Level 137 MEQ/L Potassium Level 4.3 MEQ/L Chloride Level 103 MEQ/L Carbon Dioxide Level 26.3 MEQ/L Anion Gap 8 MEQ/L Blood Urea Nitrogen 29 MG/DL Creatinine 1.75 MG/DL Estimat Glomerular Filtration 39 ML/MIN Rate Random Glucose 186 MG/DL Calcium Level 8.2 MG/DL Random Vancomycin Level 15.8 COMMENT Administered Medications Medications (Trade) Dose Ordered Sig/Alea Route PRN Reason Start Time Stop Time Status Last Admin Dose Admin Sodium Chloride (NS Flush) 2 ml UNSCH PRN IV FLUSH FLUSH AFTER USING IV ACCESS 03/25/17 14:45 04/07/17 18:36 Sodium Chloride (NS Flush) 2 ml BID IV FLUSH 03/25/17 21:00 04/14/17 21:00 Chlorhexidine Gluconate (Chlorhexidine 2% Cloth) 3 pack Taper DAILY@04 TOP 03/26/17 04:00 03/22/18 03:59 03/27/17 02:59 Senna/Docusate Sodium (Genoveva-Colace) 1 tab BID PO 03/25/17 21:00 Hold 04/11/17 21:43 Chlorhexidine Gluconate (Peridex 0.12% Liq) 15 ml BID@08,20 MT 03/25/17 20:00 04/12/17 20:00 Cilostazol (Pletal) 50 mg BID G-TUBE 03/26/17 09:00 04/14/17 20:48 Hyoscyamine Sulfate (Levsin) 0.125 mg BID G-TUBE 03/26/17 09:00 04/14/17 20:48 Metoprolol Tartrate (Lopressor) 50 mg BID G-TUBE 03/26/17 09:00 04/14/17 20:48 Alprazolam (Xanax) 0.25 mg Q8H PRN PO ANXIETY 03/26/17 17:00 04/14/17 20:48 Haloperidol Lactate (Haldol Inj) 2 mg Q4H PRN IV SEE LABEL COMMENTS 03/27/17 16:30 04/12/17 23:42 Ondansetron HCl (Zofran Inj) 4 mg Q6HR PRN IV PUSH n/v 04/02/17 14:45 04/14/17 13:34 Apixaban (Eliquis) 5 mg BID PO 04/03/17 21:00 04/14/17 20:48 Nitroglycerin (Nitrostat Sl) 0.3 mg Q5M PRN SL CHEST PAIN 04/05/17 20:00 04/08/17 00:52 Water (Free Water) VOLUME OF WATER: ( 150 ) ML Q6HR G-TUBE 04/08/17 18:00 04/14/17 18:00 Quetiapine Fumarate (SEROquel) 12.5 mg BID PO 04/10/17 09:00 04/14/17 20:48 Acetaminophen/ Hydrocodone Bitart ([place] 7.5-325 Mg) 1 tab Q4H PRN PO PAIN SCALE 1 TO 10 04/10/17 14:45 04/14/17 20:48 Bumetanide (Bumetanide) 1 mg DAILY PO 04/12/17 09:00 04/14/17 07:39 Lansoprazole (Prevacid Odt) 30 mg DAILY NG 04/12/17 15:00 04/14/17 07:39 Objective Remarks GENERAL: ill appearing CARDIOVASCULAR: Regular rate and rhythm without murmurs. RESPIRATORY: Breath sounds equal bilaterally. No accessory muscle use. GASTROINTESTINAL: Abdomen soft, non-tender, nondistended. EXTREMITIES: No cyanosis, or edema. Assessment/Plan Problem List: (1) Oropharyngeal cancer Status: Acute Plan: --palliative care following --patient with poor performance status. --family wanting to pursue aggressive care --on tube feeds w/ Suplena --XRT canceled on 04/07, per XRT he will have to be resimulated. --resimulation on 04/11 (2) DVT (deep venous thrombosis) Status: Acute Plan: +deep vein thrombosis in the right posterior tibial vein. --on Pletal and Eliquis (3) Normocytic anemia Status: Acute Plan: --s/p EGD 03/31--showed blood in hypo and oropharynx --s/p pRBC transfusion --B12 WNL --s/p iron infusion Assessment 66y/o male with recurrent head and neck cancer admitted with aspiration pneumonia and sepsis. h/o Recurrent head and neck cancer. Diabetes type 2. Chronic kidney disease, stage IV. Hyperlipidemia. History of [place] 2012. History of PCI and stent placement. Peripheral arterial disease. Hypertension. Plan 1. Continue TF 2. supportive care 3. anemia ---hb slightly lower. continue to monitor 4. Placement to SNF/rehab per family 5. Outpatient f/u with me after discharge Problem Qualifiers (1) DVT (deep venous thrombosis): Qualified Code: I82.441 - Deep vein thrombosis (DVT) of tibial vein of right lower extremity, unspecified chronicity Perico Melchor MD Apr 14, 2017 22:47
[2017-04-15] VITALS (7 sets, daily range): BP systolic 120–141; BP diastolic 59–82; PULSE 71–95; RESP 19–20; TEMP 97.5–98.6; O2SAT 94–100
[2017-04-15 01:54] LABS: BICARBONATE 25.4 MEQ/L (21.0-32.0); MAGNESIUM 2.2 MG/DL (1.5-2.5); POTASSIUM 4.2 MEQ/L (3.5-5.1)
[2017-04-15] MEDS: ACETAMINOPHEN/HYDROcodone 325 MG/7.5 MG TAB PO PRN ×4 (02:51→16:37)
[2017-04-15] MEDS: RESP: ALBUTEROL 2.5 MG/IPRATROPIUM 0.5 MG NEB (PRN) INH (03:48)
[2017-04-15] MEDS: CHLORHEXIDINE GLUCONATE 2 % 1 PACK (2 CLOTHS) TOP SCH (03:59)
[2017-04-15] MEDS: ALPRAZolam 0.25 MG TAB PO PRN (05:25)
[2017-04-15] MEDS: FREE WATER G-TUBE SCH ×4 (05:25→17:44)
[2017-04-15] MEDS: INSULIN ASPART SUPPLEMENTAL SCALE SQ SCH ×3 (06:13→16:00)
[2017-04-15] MEDS: LANSOPRAZOLE SOLUTAB 30 MG TAB NG SCH (08:59)
[2017-04-15] MEDS: CILOSTAZOL 50 MG TAB G-TUBE SCH (08:59)
[2017-04-15] MEDS: BUMETANIDE 1 MG TAB PO SCH (08:59)
[2017-04-15] MEDS: QUEtiapine FUMARATE 25 MG TAB PO SCH (08:59)
[2017-04-15] MEDS: METOPROLOL TARTRATE 50 MG TAB G-TUBE SCH (08:59)
[2017-04-15] MEDS: SODIUM CHLORIDE 0.9% FLUSH 10 ML FLUSH IV FLUSH SCH (09:00)
[2017-04-15] MEDS: APIXABAN 5 MG TABLET PO SCH (09:00)
[2017-04-15] MEDS: HYOSCYAMINE 0.125 MG TAB G-TUBE SCH (09:09)
[2017-04-15] MEDS: CHLORHEXIDINE 0.12% (ORAL KIT) 15 ML CUP MT SCH (09:28)
--- NOTE | 2017-04-15 09:43 | PD.ONC.PN ---
Subjective Subjective Remarks Afebrile overnight. Patient resting in bed. No family members at bedside. Objective Data Date Time Temp Pulse Resp B/P Pulse Ox O2 Delivery O2 Flow Rate FiO2 04/15/17 08:37 97.7 81 20 134/65 94 04/15/17 07:40 79 04/15/17 04:01 73 04/15/17 04:00 97.5 83 20 126/59 100 04/15/17 00:00 97.6 71 20 120/62 96 04/14/17 23:17 96 T-piece 6.00 28 04/14/17 20:00 97.9 97 20 147/66 95 04/14/17 19:00 T-Piece 5.00 40 Humidified 04/14/17 16:34 18 04/14/17 15:48 98.3 88 20 150/74 99 04/14/17 11:44 98.6 85 20 130/74 95 04/15/17 04/15/17 04/15/17 07:00 15:00 23:00 Intake Total 200 ml Output Total 200 ml Balance 0 ml Result Diagram: 04/14/17 1040 04/15/17 0113 Laboratory Results Laboratory Tests Test 04/14/17 04/15/17 10:40 01:13 White Blood Count 7.1 TH/MM3 Red Blood Count 3.52 MIL/MM3 Hemoglobin 10.1 GM/DL Hematocrit 30.9 % Mean Corpuscular Volume 87.7 FL Mean Corpuscular Hemoglobin 28.6 PG Mean Corpuscular Hemoglobin 32.6 % Concent Red Cell Distribution Width 21.9 % Platelet Count 170 TH/MM3 Mean Platelet Volume 10.2 FL Neutrophils (%) (Auto) % Lymphocytes (%) (Auto) % Monocytes (%) (Auto) % Eosinophils (%) (Auto) % Basophils (%) (Auto) % Neutrophils # (Auto) TH/MM3 Lymphocytes # (Auto) TH/MM3 Monocytes # (Auto) TH/MM3 Eosinophils # (Auto) TH/MM3 Basophils # (Auto) TH/MM3 CBC Comment AUTO DIFF Differential Total Cells 100 Counted Neutrophils % (Manual) 85 % Band Neutrophils % 6 % Lymphocytes % 3 % Monocytes % 6 % Neutrophils # (Manual) 6.5 TH/MM3 Differential Comment FINAL DIFF MANUAL Platelet Estimate NORMAL Platelet Morphology Comment ENLARGED Sodium Level 137 MEQ/L 139 MEQ/L Potassium Level 4.3 MEQ/L 4.2 MEQ/L Chloride Level 103 MEQ/L 106 MEQ/L Carbon Dioxide Level 26.3 MEQ/L 25.4 MEQ/L Anion Gap 8 MEQ/L 8 MEQ/L Blood Urea Nitrogen 29 MG/DL 28 MG/DL Creatinine 1.75 MG/DL 1.68 MG/DL Estimat Glomerular Filtration 39 ML/MIN 41 ML/MIN Rate Random Glucose 186 MG/DL 139 MG/DL Calcium Level 8.2 MG/DL 8.3 MG/DL Random Vancomycin Level 15.8 COMMENT Magnesium Level 2.2 MG/DL Administered Medications Medications (Trade) Dose Ordered Sig/Alea Route PRN Reason Start Time Stop Time Status Last Admin Dose Admin Sodium Chloride (NS Flush) 2 ml UNSCH PRN IV FLUSH FLUSH AFTER USING IV ACCESS 03/25/17 14:45 04/07/17 18:36 Sodium Chloride (NS Flush) 2 ml BID IV FLUSH 03/25/17 21:00 04/15/17 09:00 Chlorhexidine Gluconate (Chlorhexidine 2% Cloth) 3 pack Taper DAILY@04 TOP 03/26/17 04:00 03/22/18 03:59 03/27/17 02:59 Senna/Docusate Sodium (Genoveva-Colace) 1 tab BID PO 03/25/17 21:00 Hold 04/11/17 21:43 Chlorhexidine Gluconate (Peridex 0.12% Liq) 15 ml BID@08,20 MT 03/25/17 20:00 04/12/17 20:00 Cilostazol (Pletal) 50 mg BID G-TUBE 03/26/17 09:00 04/15/17 08:59 Hyoscyamine Sulfate (Levsin) 0.125 mg BID G-TUBE 03/26/17 09:00 04/15/17 09:09 Metoprolol Tartrate (Lopressor) 50 mg BID G-TUBE 03/26/17 09:00 04/15/17 08:59 Alprazolam (Xanax) 0.25 mg Q8H PRN PO ANXIETY 03/26/17 17:00 04/15/17 05:25 Haloperidol Lactate (Haldol Inj) 2 mg Q4H PRN IV SEE LABEL COMMENTS 03/27/17 16:30 04/12/17 23:42 Ondansetron HCl (Zofran Inj) 4 mg Q6HR PRN IV PUSH n/v 04/02/17 14:45 04/14/17 13:34 Apixaban (Eliquis) 5 mg BID PO 04/03/17 21:00 04/15/17 09:00 Nitroglycerin (Nitrostat Sl) 0.3 mg Q5M PRN SL CHEST PAIN 04/05/17 20:00 04/08/17 00:52 Water (Free Water) VOLUME OF WATER: ( 150 ) ML Q6HR G-TUBE 04/08/17 18:00 04/15/17 05:25 Quetiapine Fumarate (SEROquel) 12.5 mg BID PO 04/10/17 09:00 04/15/17 08:59 Acetaminophen/ Hydrocodone Bitart ([place] 7.5-325 Mg) 1 tab Q4H PRN PO PAIN SCALE 1 TO 10 04/10/17 14:45 04/15/17 05:25 Bumetanide (Bumetanide) 1 mg DAILY PO 04/12/17 09:00 04/15/17 08:59 Lansoprazole (Prevacid Odt) 30 mg DAILY NG 04/12/17 15:00 04/15/17 08:59 Objective Remarks GENERAL: Chronically ill male sitting up in bed, lethargic. SKIN: Warm and dry. HEAD: Normocephalic. EYES: No injection or drainage. NECK: Supple, trachea midline. trach in place, on 6L O2 via NC CARDIOVASCULAR: Regular rate and rhythm RESPIRATORY: anterior seo with coarse rhonchi GASTROINTESTINAL: Abdomen soft, non-tender. percutaneous feeding tube in place, receiving TF EXTREMITIES: No cyanosis. No edema NEUROLOGICAL: lethargic, but easily awakens to sound. Assessment/Plan Problem List: (1) Oropharyngeal cancer Status: Acute Plan: --palliative care following --patient with poor performance status. --family wanting to pursue aggressive care --on tube feeds w/ Suplena --XRT canceled on 04/07, per XRT he will have to be resimulated. --resimulation on 04/11 was unsuccessful (2) DVT (deep venous thrombosis) Status: Acute Plan: +deep vein thrombosis in the right posterior tibial vein. --on Pletal and Eliquis (3) Normocytic anemia Status: Acute Plan: --s/p EGD 03/31--showed blood in hypo and oropharynx --s/p pRBC transfusion --B12 WNL --s/p iron infusion Assessment 66y/o male with recurrent head and neck cancer admitted with aspiration pneumonia and sepsis. h/o Recurrent head and neck cancer. Diabetes type 2. Chronic kidney disease, stage IV. Hyperlipidemia. History of [place] 2012. History of PCI and stent placement. Peripheral arterial disease. Hypertension. Plan 1. ok to transfer to SNF 2. follow up in clinic once discharge 3. monitor CBC Attending Statement The exam, history, and the medical decision-making described in the above note were completed with the assistance of the mid-level provider. I reviewed and agree with the findings presented. I attest that I had a [id number] encounter with the patient on the same day, and personally performed and documented my assessment and findings in the medical record. Problem Qualifiers (1) DVT (deep venous thrombosis): Qualified Code: I82.441 - Deep vein thrombosis (DVT) of tibial vein of right lower extremity, unspecified chronicity Neeru Pritchett Apr 15, 2017 09:43 Perico Melchor MD Apr 15, 2017 23:50
--- NOTE | 2017-04-15 10:21 | HHI.PR ---
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 Multispecialty management. Palliative Care following, family wanted to pursue aggressive care, Tube feedings continue, DVT on Pletal and Eliquis, status post EGD 03/31 due to anemia Status post blood transfusion, Oncology recommended to Re-simulate Radiation. 04/14: Seen in his bedroom and discussed with nurse Mr. Nazario the patient is Lethargic, discussed with product development specialist MAKAYLA as per Oncology the patient is candidate for Hospice, and is not expected that he may have his Stimulation by commercial marketing specialist he he has very poor prognosis, will try to discuss with his during the afternoon because she wants to continue aggressive care and will go home with [facility]. 04/15: patient stable seen in his bedroom, no nausea, vomit or diarrhea, everything ready for the patient to go home with [facility] as per his , to continue Aggressive management. Objective Vital Signs Date Time Temp Pulse Resp B/P Pulse Ox O2 Delivery O2 Flow Rate FiO2 04/15/17 08:37 97.7 81 20 134/65 94 04/15/17 07:40 79 04/15/17 04:01 73 04/15/17 04:00 97.5 83 20 126/59 100 04/15/17 00:00 97.6 71 20 120/62 96 04/14/17 23:17 96 T-piece 6.00 28 04/14/17 20:00 97.9 97 20 147/66 95 04/14/17 19:00 T-Piece 5.00 40 Humidified 04/14/17 16:34 18 04/14/17 15:48 98.3 88 20 150/74 99 04/14/17 11:44 98.6 85 20 130/74 95 I/O 04/14/17 04/14/17 04/14/17 04/15/17 04/15/17 04/15/17 07:00 15:00 23:00 07:00 15:00 23:00 Intake Total 200 ml 200 ml Output Total 200 ml 375 ml 200 ml Balance 200 ml -200 ml -375 ml 0 ml Other 200 ml 200 ml Output Urine Total 200 ml 375 ml 200 ml # Bowel Movements 1 Result Diagram: 04/14/17 1040 04/15/17 0113 Imaging Last Impressions Chest X-Ray 04/10/17 0600 Signed Impressions: Service Date/Time: April 06:36 - CONCLUSION: Slight increased prominence a left pleural effusion with stable findings of CHF Oscar Verdugo MD Upper Extremity Ultrasound 03/25/17 0000 Signed Impressions: Service Date/Time: Saturday, March 25, 2017 16:31 - CONCLUSION: 1. Occlusive thrombus in the right cephalic vein. 2. No deep venous thrombosis left arm. Dakota Suarez MD Lung Scan-V Nuclear Medicine 03/25/17 0000 Signed Impressions: Service Date/Time: Saturday, March 25, 2017 13:39 - CONCLUSION: No scintigraphic findings of pulmonary embolus. Jacky Guadarrama MD Lower Extremity Ultrasound 03/25/17 0000 Signed Impressions: Service Date/Time: Saturday, March 25, 2017 16:03 - CONCLUSION: Probable deep venous thrombosis within the right posterior tibial veins. Bret Calderón MD Head CT 03/25/17 0000 Signed Impressions: Service Date/Time: Saturday, March 25, 2017 11:52 - CONCLUSION: 1. Moderate cerebral atrophy. 2. Old lacunar infarcts within the bilateral basal ganglia. 3. No acute infarct, acute hemorrhage, mass effect or extra axial fluid collections. Bret Calderón MD Procedures None Other Results Laboratory Tests Test 04/14/17 04/15/17 10:40 01:13 White Blood Count 7.1 TH/MM3 Red Blood Count 3.52 MIL/MM3 Hemoglobin 10.1 GM/DL Hematocrit 30.9 % Mean Corpuscular Volume 87.7 FL Mean Corpuscular Hemoglobin 28.6 PG Mean Corpuscular Hemoglobin 32.6 % Concent Red Cell Distribution Width 21.9 % Platelet Count 170 TH/MM3 Mean Platelet Volume 10.2 FL Neutrophils (%) (Auto) % Lymphocytes (%) (Auto) % Monocytes (%) (Auto) % Eosinophils (%) (Auto) % Basophils (%) (Auto) % Neutrophils # (Auto) TH/MM3 Lymphocytes # (Auto) TH/MM3 Monocytes # (Auto) TH/MM3 Eosinophils # (Auto) TH/MM3 Basophils # (Auto) TH/MM3 CBC Comment AUTO DIFF Differential Total Cells 100 Counted Neutrophils % (Manual) 85 % Band Neutrophils % 6 % Lymphocytes % 3 % Monocytes % 6 % Neutrophils # (Manual) 6.5 TH/MM3 Differential Comment FINAL DIFF MANUAL Platelet Estimate NORMAL Platelet Morphology Comment ENLARGED Random Vancomycin Level 15.8 COMMENT Sodium Level 139 MEQ/L Potassium Level 4.2 MEQ/L Chloride Level 106 MEQ/L Carbon Dioxide Level 25.4 MEQ/L Anion Gap 8 MEQ/L Blood Urea Nitrogen 28 MG/DL Creatinine 1.68 MG/DL Estimat Glomerular Filtration 41 ML/MIN Rate Random Glucose 139 MG/DL Calcium Level 8.3 MG/DL Magnesium Level 2.2 MG/DL Objective Remarks GENERAL: Chronically ill appearing male in no apparent distress. awake and answer questions. NECK: trach in place. CARDIOVASCULAR: Regular rate and rhythm without murmurs, gallops, or rubs. RESPIRATORY: Clear to auscultation. Breath sounds equal bilaterally. No wheezes , rales, or rhonchi. GASTROINTESTINAL: Abdomen soft, non-tender, nondistended. Normal active bowel sounds MUSCULOSKELETAL: Extremities without clubbing, cyanosis, or edema. NEURO: Awake and alert. Medications and IVs Current Medications Medications (Trade) Dose Ordered Sig/Alea Route Start Time Stop Time Status Last Admin (NS Flush) 2 ml UNSCH PRN IV FLUSH 03/25/17 14:45 04/07/17 18:36 (NS Flush) 2 ml BID IV FLUSH 03/25/17 21:00 04/15/17 09:00 Miscellaneous Information 1 Q361D XX 03/25/17 14:45 (Chlorhexidine 2% Cloth) 3 pack Taper DAILY@04 TOP 03/26/17 04:00 03/22/18 03:59 03/27/17 02:59 (Chlorhexidine 2% Cloth) 3 pack UNSCH PRN TOP 03/25/17 14:45 (Genoveva-Colace) 1 tab BID PO 03/25/17 21:00 Hold 04/11/17 21:43 (Milk Of Magnesia Liq) 30 ml Q12H PRN PO 03/25/17 14:45 (Senokot) 17.2 mg Q12H PRN PO 03/25/17 14:45 Hold (Dulcolax Supp) 10 mg DAILY PRN RECTAL 03/25/17 14:45 (Lactulose Liq) 30 ml DAILY PRN PO 03/25/17 14:45 (Peridex 0.12% Liq) 15 ml BID@08,20 MT 03/25/17 20:00 04/12/17 20:00 (D50w (Vial) Inj) 50 ml UNSCH PRN IV 03/25/17 15:00 (Glucagon Inj) 1 mg UNSCH PRN OTHER 03/25/17 15:00 (Pletal) 50 mg BID G-TUBE 03/26/17 09:00 04/15/17 08:59 (Levsin) 0.125 mg BID G-TUBE 03/26/17 09:00 04/15/17 09:09 (Lopressor) 50 mg BID G-TUBE 03/26/17 09:00 04/15/17 08:59 (Xanax) 0.25 mg Q8H PRN PO 03/26/17 17:00 04/15/17 05:25 (Haldol Inj) 2 mg Q4H PRN IV 03/27/17 16:30 04/12/17 23:42 (Zofran Inj) 4 mg Q6HR PRN IV PUSH 04/02/17 14:45 04/14/17 13:34 (Eliquis) 5 mg BID PO 04/03/17 21:00 04/15/17 09:00 (Nitrostat Sl) 0.3 mg Q5M PRN SL 04/05/17 20:00 04/08/17 00:52 (Free Water) VOLUME OF WATER: ( 150 ) ML Q6HR G-TUBE 04/08/17 18:00 04/15/17 05:25 (SEROquel) 12.5 mg BID PO 04/10/17 09:00 04/15/17 08:59 (Pill Splitter) 1 ea UNSCH PRN OTHER 04/09/17 15:15 ([place] 7.5-325 Mg) 1 tab Q4H PRN PO 04/10/17 14:45 04/15/17 05:25 (Bumetanide) 1 mg DAILY PO 04/12/17 09:00 04/15/17 08:59 (Prevacid Odt) 30 mg DAILY NG 04/12/17 15:00 04/15/17 08:59 (Tylenol) 650 mg Q6H PRN PO 04/14/17 16:15 A/P Assessment and Plan Pneumonia, MRSA, ?aspiration, trached.: ID consulted - appreciate recommendations. Monitor off antibiotics. Repeat CXR on 04/05 shows moderate failure - continue diuretics 04/08 sputum culture grew MRSA, however the patient is afebrile and WBC is trending down. Continue to monitor CBC with differential and vital signs. Continue to monitor off antibiotics. MRSA in the sputum is likely colonization. - Trach care per pulmonology. [place] valve trials. Agitation: Much improved with Seroquel, low dose. 12.5 mg BID. Continue Haldol as needed. Remains in restraints. Will need to be off restraints prior to placement. as per nurse his asking for Home with [facility] will follow during the afternoon for discharge GI bleed: Appreciate GI recommendations. S/P EGD. Bleeding from laryngeal mass has resolved. On Apixaban - ok to resume as per GI. Hemoglobin stable Head and neck cancer: Appreciate oncology recommendations. Tube feeds per PEG tube. Tracheostomy in place. as per product development specialist he was already recommended for Hospice but his preferred for aggressive management, she will decide later for Home with [facility]. Chronic kidney disease stage IV: Stable. Avoid nephrotoxins. Acute blood loss anemia: On EGD, bleeding appears to be from laryngeal mass. Hemoglobin improved following transfusion. DVT: Ultrasound shows "probable DVT" in right posterior tibial veins. on Eliquis and Pletal per heme/onc, Chronic pain: Continue with [place], increase dose of 7.5/325. Very Poor short term prognosis Oncology do not expect the patient to be able to go for Stimulation for Radiation therapy. was tried on two opportunities and failed due to that the patient was not able to be flat for the procedure. Discharge Planning Okay to discharge to SNF versus Home with [facility] depend of his decision. Anil Slater MD Apr 15, 2017 10:21
--- NOTE | 2017-04-15 10:25 | RF ---
cc: COLBY CRUZ MD F o l l o w u p R e p o r t DATE OF SERVICE: 04/11/2017 AGE: 66 SEX: M Mr. Iverson is a 66-year-old male. He was unable to tolerate simulation today. We did try incline. Discussed with Dr. Melchor. May try again. He was unable to tolerate previous attempt of treatment and setup as well, and unable to tolerate a new re-CT. Potentially can try again next week or potential role of chemotherapy at some point as well. Discussed with Dr. Melchor. Colby Cruz MD Radiation Oncologist [facility]/BT /10:21 AM /10:20 AM
[2017-04-15] MEDS ORDERED: OXYGENDME NAS.CANULA ×2 (15:40→16:38)
[2017-04-15] MEDS ORDERED: QUET1TAB7 PO (15:49)
[2017-04-15] MEDS ORDERED: PREV30TA3 NG (15:49)
[2017-04-15] MEDS ORDERED: HYDR-3580 PO (15:49)
[2017-04-15] MEDS ORDERED: ALPR.25 PO (15:49)
[2017-04-15] MEDS ORDERED: BUME1TAB PO (15:49)
[2017-04-15] MEDS ORDERED: APIX5TAB PO (15:49)
--- NOTE | 2017-04-15 18:00 | HHI.DS ---
Discharge Summary Admission Date Mar 25, 2017 at 12:56 Discharge Date: Apr 15, 2017 Admitting Diagnosis SEPSIS SUSPECT PULMONARY SOURCE, HYPOXEMIA (1) DVT (deep venous thrombosis) ICD Code: I82.409 Diagnosis: Principal (2) Tracheostomy dependent ICD Code: Z93.0 Diagnosis: Principal (3) Head ache ICD Code: R51 Diagnosis: Secondary (4) Head and neck malignancy ICD Code: C76.0 Diagnosis: Principal (5) Pneumonia ICD Code: J18.9 Diagnosis: Principal (6) Severe sepsis ICD Code: A41.9 Diagnosis: Principal (7) CKD (chronic kidney disease), stage IV ICD Code: N18.4 Diagnosis: Principal (8) CAD (coronary artery disease) ICD Code: I25.10 Diagnosis: Secondary (9) Hypertension ICD Code: I10 Diagnosis: Secondary (10) Hyperlipidemia ICD Code: E78.5 Diagnosis: Secondary (11) Anemia ICD Code: D64.9 Diagnosis: Secondary (12) GI bleed ICD Code: K92.2 Diagnosis: Principal Procedures None Brief History - From Admission This is a 66-year-old male, that presented to the ED emergently secondary to respiratory distress. Per report from his the patient was not feeling well last night complaint of difficulty breathing this a.m., EMS was called. Upon EMS arrival the pulse oximetry was noted to be in the 70s, the patient has a tracheostomy in situ which was suctioned O2 saturation increased to the 90s. Upon arrival to the ED the patient was noted to be tachycardic febrile and ABG on room air resulted in a PaO2 of 50. A VQ scan was ordered per Ed secondary to the patient has CKD stage IV, with a presenting creatinine of 2.2, to rule out pulmonary embolus. The patient was placed on 35% trach collar with O2 saturation 99%. The patient's temperature upon admission 103.5, and a noted leukocytosis with WBC count of 14.2. A presumptive diagnosis of sepsis, and workup/protocol was initiated. The patient received in the ED Flagyl, vancomycin and Zosyn. The patient has a significant past medical history of CAD , PAD and previously on Coumadin which was discontinued one week ago secondary to bleeding around the tracheostomy site. The patient has a history significant for laryngeal cancer diagnosed 09/2015 and has received XRT, and chemotherapy with resultant tracheostomy. Recurrence was noted 10/2016. The patient previously had advanced the diet to mechanical soft and liquids, but recently began having issues with nausea and vomiting and was placed on tube feeds only. The patient has a history of aspiration pneumonia previously hospitalized 09/2016. Critical care medicine was consulted for management. CBC/BMP: 04/14/17 1040 04/15/17 0113 Significant Findings Laboratory Tests Test 04/13/17 04/14/17 04/15/17 12:11 10:40 01:13 Red Blood Count 3.93 MIL/MM3 3.52 MIL/MM3 (4.50-5.90) (4.50-5.90) Hemoglobin 11.2 GM/DL 10.1 GM/DL (13.0-17.0) (13.0-17.0) Hematocrit 34.8 % 30.9 % (39.0-51.0) (39.0-51.0) Red Cell Distribution Width 21.7 % 21.9 % (11.6-17.2) (11.6-17.2) Blood Urea Nitrogen 28 MG/DL (7-18) 29 MG/DL (7-18) 28 MG/DL (7-18) Creatinine 1.78 MG/DL 1.75 MG/DL 1.68 MG/DL (0.60-1.30) (0.60-1.30) (0.60-1.30) Estimat Glomerular Filtration 38 ML/MIN (>89) 39 ML/MIN (>89) 41 ML/MIN (>89) Rate Random Glucose 151 MG/DL 186 MG/DL 139 MG/DL (74-106) (74-106) (74-106) Neutrophils % (Manual) 85 % (16-70) Lymphocytes % 3 % (9-44) Platelet Morphology Comment ENLARGED (NORMAL) Calcium Level 8.2 MG/DL 8.3 MG/DL (8.5-10.1) (8.5-10.1) Imaging Last Impressions Chest X-Ray 04/10/17 0600 Signed Impressions: Service Date/Time: April 06:36 - CONCLUSION: Slight increased prominence a left pleural effusion with stable findings of CHF Oscar Verdugo MD Upper Extremity Ultrasound 03/25/17 0000 Signed Impressions: Service Date/Time: Saturday, March 25, 2017 16:31 - CONCLUSION: 1. Occlusive thrombus in the right cephalic vein. 2. No deep venous thrombosis left arm. Dakota Suarez MD Lung Scan-VQ Nuclear Medicine 03/25/17 0000 Signed Impressions: Service Date/Time: Saturday, March 25, 2017 13:39 - CONCLUSION: No scintigraphic findings of pulmonary embolus. Jacky Guadarrama MD Lower Extremity Ultrasound 03/25/17 0000 Signed Impressions: Service Date/Time: Saturday, March 25, 2017 16:03 - CONCLUSION: Probable deep venous thrombosis within the right posterior tibial veins. Bret Calderón MD Head CT 03/25/17 0000 Signed Impressions: Service Date/Time: Saturday, March 25, 2017 11:52 - CONCLUSION: 1. Moderate cerebral atrophy. 2. Old lacunar infarcts within the bilateral basal ganglia. 3. No acute infarct, acute hemorrhage, mass effect or extra axial fluid collections. Bret Calderón MD PE at Discharge GENERAL: Chronically ill appearing male in no apparent distress. awake and answer questions. NECK: trach in place. CARDIOVASCULAR: Regular rate and rhythm without murmurs, gallops, or rubs. RESPIRATORY: Clear to auscultation. Breath sounds equal bilaterally. No wheezes , rales, or rhonchi. GASTROINTESTINAL: Abdomen soft, non-tender, nondistended. Normal active bowel sounds MUSCULOSKELETAL: Extremities without clubbing, cyanosis, or edema. NEURO: Awake and alert. 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 Multispecialty management. Palliative Care following, family wanted to pursue aggressive care, Tube feedings continue, DVT on Pletal and Eliquis, status post EGD 03/31 due to anemia Status post blood transfusion, Oncology recommended to Re-simulate Radiation. 04/14: Seen in his bedroom and discussed with nurse Mr. Nazario the patient is Lethargic, discussed with clerical specialist MAKAYLA as per Oncology the patient is candidate for Hospice, and is not expected that he may have his Stimulation by orientation and mobility specialist he he has very poor prognosis, will try to discuss with his during the afternoon because she wants to continue aggressive care and will go home with [facility]. 04/15: patient stable seen in his bedroom, no nausea, vomit or diarrhea, everything ready for the patient to go home with [facility] as per his , to continue Aggressive management. Assessment and Plan Pneumonia, MRSA, ?aspiration, trached.: ID consulted - appreciate recommendations. Monitor off antibiotics. Repeat CXR on 04/05 shows moderate failure - continue diuretics 04/08 sputum culture grew MRSA, however the patient is afebrile and WBC is trending down. Continue to monitor CBC with differential and vital signs. Continue to monitor off antibiotics. MRSA in the sputum is likely colonization. - Trach care per pulmonology. Passy-[place] valve trials. Agitation: Much improved with Seroquel, low dose. 12.5 mg BID. Continue Haldol as needed. Remains in restraints. Will need to be off restraints prior to placement. as per nurse his asking for Home with [facility] will follow during the afternoon for discharge GI bleed: Appreciate GI recommendations. S/P EGD. Bleeding from laryngeal mass has resolved. On Apixaban - ok to resume as per GI. Hemoglobin stable Head and neck cancer: Appreciate oncology recommendations. Tube feeds per PEG tube. Tracheostomy in place. as per clerical specialist he was already recommended for Hospice but his preferred for aggressive management, she will decide later for Home with [facility]. Chronic kidney disease stage IV: Stable. Avoid nephrotoxins. Acute blood loss anemia: On EGD, bleeding appears to be from laryngeal mass. Hemoglobin improved following transfusion. DVT: Ultrasound shows "probable DVT" in right posterior tibial veins. on Eliquis and Pletal per heme/onc, Chronic pain: Continue with [place], increase dose of 7.5/325. Very Poor short term prognosis Oncology do not expect the patient to be able to go for Stimulation for Radiation therapy. was tried on two opportunities and failed due to that the patient was not able to be flat for the procedure. Discharge Planning Discharge Home with [facility] Expected readmission versus SNF for hospice placement, signed [id number] for future management in SNF Pt Condition on Discharge: Guarded Discharge Disposition: Disch w/ Home Health Serv Discharge Time: > 30 minutes Discharge Instructions DIET: Follow Instructions for: On Tube Feeding Activities you can perform: See Additionl Instruction Other Activity Instructions: Follow PT and OT recommendations at home Anil Slater MD Apr 15, 2017 18:00
--- NOTE | 2017-04-15 19:25 | HHI.PR ---
Subjective Remarks 66 YOWm with Laryngeal ca s/p radiation, trach, GIB,DVT had small amount of trach bloody secretion No fever Tolerates TF Awake, follows commands. On T-Tube Did't tolerate Simulation for radiation. Objective Vital Signs Vital Signs Date Time Temp Pulse Resp B/P Pulse Ox O2 Delivery O2 Flow Rate FiO2 04/15/17 16:34 98.6 95 19 141/79 99 04/15/17 14:33 4.00 04/15/17 11:42 97.6 74 19 124/82 96 04/15/17 08:37 97.7 81 20 134/65 94 04/15/17 08:30 Trach Collar 6.00 28 04/15/17 07:40 79 04/15/17 04:01 73 04/15/17 04:00 97.5 83 20 126/59 100 04/15/17 00:00 97.6 71 20 120/62 96 04/14/17 23:17 96 T-piece 6.00 28 04/14/17 20:00 97.9 97 20 147/66 95 I/O 04/14/17 04/14/17 04/14/17 04/15/17 04/15/17 04/15/17 07:00 15:00 23:00 07:00 15:00 23:00 Intake Total 200 ml 200 ml Output Total 200 ml 375 ml 200 ml Balance 200 ml -200 ml -375 ml 0 ml Other 200 ml 200 ml Output Urine Total 200 ml 375 ml 200 ml # Bowel Movements 1 Result Diagram: 04/14/17 1040 04/15/17 0113 Objective Remarks GENERAL: MBMN WM, NAD SKIN: Warm and dry. HEAD: Normocephalic. EYES: No scleral icterus. No injection or drainage. NECK: Supple, trachea midline. No JVD or lymphadenopathy. has trach CARDIOVASCULAR: Regular rate and rhythm without murmurs, gallops, or rubs. RESPIRATORY: Breath sounds equal bilaterally. No accessory muscle use. GASTROINTESTINAL: Abdomen soft, non-tender, nondistended. has PEG tube MUSCULOSKELETAL: No cyanosis, or edema. BACK: Nontender without obvious deformity. No CVA tenderness. A/P Assessment and Plan RF,S/P Trach Hemoptysis mild DVT laryngeal ca, s/p radiation PLAN Cont Abx Trach care monitor hemoptysis Aerosol nebs TF Real Coffey MD Apr 15, 2017 19:25
[2017-04-17] MEDS ORDERED: PHARMACY ORDERED LAB ONE (15:45)
== END 2017-04-15 22:29 | disposition home health service (06) | DRG 871 ==
LOC: NEPE 09:33 → NEDA 12:56 → HIMN 20:05 → N05A 03-27 16:55
PROVIDERS: ADMIT Anesthesiology; ATTEND Internal Medicine
PROC: 30233N1 Transfusion of Nonautologous Red Blood Cells into Peripheral Vein, Percutaneous Approach (ICD-10-PCS; 2017-03-27)
PROC: 0DJ08ZZ Inspection of Upper Intestinal Tract, Via Natural or Artificial Opening Endoscopic (ICD-10-PCS; principal; 2017-03-31 12:00)
PROC: 0CJS8ZZ Inspection of Larynx, Via Natural or Artificial Opening Endoscopic (ICD-10-PCS; 2017-04-01)
DX: A41.9 Sepsis, unspecified organism (principal); J69.0 Pneumonitis due to inhalation of food and vomit; J96.21 Acute and chronic respiratory failure with hypoxia; N17.9 Acute kidney failure, unspecified; J15.212 Pneumonia due to Methicillin resistant Staphylococcus aureus; I13.0 Hypertensive heart and chronic kidney disease with heart failure and stage 1 through stage 4 chronic kidney disease, or unspecified chronic kidney disease; E87.0 Hyperosmolality and hypernatremia; Z93.0 Tracheostomy status; N18.4 Chronic kidney disease, stage 4 (severe); I50.9 Heart failure, unspecified; K92.2 Gastrointestinal hemorrhage, unspecified; D62 Acute posthemorrhagic anemia; R04.2 Hemoptysis; J44.0 Chronic obstructive pulmonary disease with (acute) lower respiratory infection; I82.611 Acute embolism and thrombosis of superficial veins of right upper extremity; I82.441 Acute embolism and thrombosis of right tibial vein; Q61.3 Polycystic kidney, unspecified; C32.9 Malignant neoplasm of larynx, unspecified; E11.22 Type 2 diabetes mellitus with diabetic chronic kidney disease; K21.9 Gastro-esophageal reflux disease without esophagitis; I25.10 Atherosclerotic heart disease of native coronary artery without angina pectoris; I25.2 Old myocardial infarction; R65.20 Severe sepsis without septic shock; E78.5 Hyperlipidemia, unspecified; G89.29 Other chronic pain; Z93.1 Gastrostomy status; E11.51 Type 2 diabetes mellitus with diabetic peripheral angiopathy without gangrene; Z95.5 Presence of coronary angioplasty implant and graft; I65.21 Occlusion and stenosis of right carotid artery; K44.9 Diaphragmatic hernia without obstruction or gangrene; R62.7 Adult failure to thrive; R45.1 Restlessness and agitation; Z95.1 Presence of aortocoronary bypass graft; Z86.73 Personal history of transient ischemic attack (TIA), and cerebral infarction without residual deficits; Z87.891 Personal history of nicotine dependence; Z79.02 Long term (current) use of antithrombotics/antiplatelets
CPT/HCPCS: 36430; 36600; 51702; 70450; 71010; 76937; 77263; 77290; 77300; 77301; 77334; 77338; 78582; 80048; 80053; 80202; 81001; 82140; 82550; 82607; 82747; 82805; 82948; 83540; 83550; 83605; 83690; 83735; 83880; 84100; 84466; 84484; 85007; 85025; 85027; 85610; 85730; 86403; 86850; 86900; 86901; 86920; 87040; 87070; 87077; 87086; 87147; 87186; 87205; 87493; 87506; 87641; 93005; 93306; 93970; 94620; 94640; 94664; 96365; 96367; 99232; A7520; A9540; A9567; C9113; J0131; J0456; J1630; J1644; J1756; J1815; J1940; J2060; J2250; J2405; J2543; J3370; J3480; J7030; J7050; P9016

== ENCOUNTER 2017-05-16 08:28 | Day surgery (SDC) | payer MEDICARE, MEDICAID ==
[~2017-05-16] VITALS: Ht 185.4 cm; Wt 64.5 kg
[~2017-05-16 08:28] MED LIST changes: -ALPR.25 G-TUBE; +ALPR.25 PO; +APIX5TAB PO; -ARGY3MIS8; +BUME1TAB PO; -CATHETER; -GABA250S7 G-TUBE; -GETGO ROLLING W1 MI1; -HOSP BED1; +HYDR-3580 PO; -HYDR0.1S8 G-TUBE; -NEBUMIS25; +OXYGENDME NAS.CANULA; -PLAV75TA29 G-TUBE; -PREV30TA3 G-TUBE; +PREV30TA3 NG; +QUET1TAB7 PO; -SODI325T G-TUBE; -TEMA15CA G-TUBE; -[UNRECOGNIZED DRUG - CODE]; -[UNRECOGNIZED DRUG - OTHER]; -[UNRECOGNIZED DRUG - SUPPLY]; -[UNRECOGNIZED DRUG - SUPPLY]; -[UNRECOGNIZED DRUG - SUPPLY]; -[UNRECOGNIZED DRUG - SUPPLY]; -[UNRECOGNIZED DRUG - SUPPLY]; -[UNRECOGNIZED DRUG - SUPPLY]; -[UNRECOGNIZED DRUG - SUPPLY]; -[UNRECOGNIZED DRUG - SUPPLY]; -[UNRECOGNIZED DRUG - SUPPLY]; -[UNRECOGNIZED DRUG - SUPPLY]; -[UNRECOGNIZED DRUG - SUPPLY]; -[UNRECOGNIZED DRUG - SUPPLY]
[2017-05-16] MEDS ORDERED: CITA20TA4 PO (09:01)
[2017-05-16] MEDS ORDERED: DRON2.5C PO (09:02)
[2017-05-16] MEDS ORDERED: FENT25DI T-DERMAL (09:05)
[2017-05-16] MEDS ORDERED: OMEP40CA2 PO (09:05)
[2017-05-16] MEDS ORDERED: LIDO2GEL11 TOPICAL (09:05)
[2017-05-16] MEDS ORDERED: PANT40TA3 PO (09:05)
[2017-05-16] MEDS ORDERED: TRAM50TA PO (09:05)
[2017-05-16] MEDS ORDERED: NITR1SUB3 SL (09:05)
[2017-05-16] MEDS ORDERED: PROM12.54 PO (09:05)
[2017-05-16] MEDS ORDERED: FURO1TAB62 PO (09:05)
== END 2017-05-16 09:05 | disposition home or self-care (01) ==
LOC: HROP 08:28 → HRIP 08:29 → HROP 09:05
PROVIDERS: ATTEND Internal Medicine
DX: C14.0 Malignant neoplasm of pharynx, unspecified (principal); Z53.8 Procedure and treatment not carried out for other reasons

== ENCOUNTER 2017-05-19 07:51 | Day surgery (SDC) | payer MEDICARE, MEDICAID ==
[2017-05-19] VITALS (7 sets, daily range): BP systolic 129–151; BP diastolic 64–79; PULSE 80–87; RESP 18–20; TEMP 97.6; O2SAT 99–100
[~2017-05-19] VITALS: Ht 182.9 cm; Wt 67.7 kg
[~2017-05-19 07:51] MED LIST changes: -BUME1TAB PO; -CALC1SOL PEG; -CILO50TA G-TUBE; +CITA20TA4 PO; -COLL30T TOPICAL; +DRON2.5C PO; +FENT25DI T-DERMAL; +FURO1TAB62 PO; +LIDO2GEL11 TOPICAL; +NITR1SUB3 SL; +OMEP40CA2 PO; +PANT40TA3 PO; +PROM12.54 PO; +TRAM50TA PO; -VITA250T3 G-TUBE
[2017-05-19] MEDS ORDERED: SODIUM CHLOR 0.9% 1000 ML INJ 1,000 ML IV SCH (08:45)
[2017-05-19 08:47] LABS: AUTOMATED NEUTROPHIL # 7.3 TH/MM3 (1.8-7.7); BASOPHIL # 0.1 TH/MM3 (0-0.2); BASOPHIL % 0.7 % (0.0-2.0); EOSINOPHIL # 0.1 TH/MM3 (0-0.4); EOSINOPHIL % 0.7 % (0.0-4.0); HEMATOCRIT 34.3 % (39.0-51.0); HEMO FLAGS DIFF FINAL; LYMPH % 8.2 % (9.0-44.0); LYMPHOCYTE # 0.7 TH/MM3 (1.0-4.8); MEAN CELL VOLUME 85.5 FL (80.0-100.0); MEAN CORPUSCULAR HEMOGLOBIN 27.8 PG (27.0-34.0); MEAN CORPUSCULAR HGB CONC 32.6 % (32.0-36.0); MONO % 8.8 % (0.0-8.0); NEUT % 81.6 % (16.0-70.0); PLATELET COUNT 359 TH/MM3 (150-450); RED BLOOD COUNT 4.01 MIL/MM3 (4.50-5.90); RED CELL DISTRIBUTION WIDTH 17.7 % (11.6-17.2)
[2017-05-19 08:57] LABS: APTT (PATIENT) 33.9 SEC (24.3-30.1); PROTHROMBIN TIME - PATIENT 11.6 SEC (9.8-11.6)
[2017-05-19] MEDS ORDERED: VANCOMYCIN HCL 1000 MG ON-CALL/NS 250 ML IV SCH ×2 (09:00)
[2017-05-19] MEDS ORDERED: ceFAZolin 2 GM PREMIX 50 ML IV SCH ×2 (09:00→09:15)
[2017-05-19] MEDS ORDERED: CHLORHEXIDINE GLUCONATE 2 % 1 PACK (2 CLOTHS) OTHER SCH (09:00)
[2017-05-19] MEDS ORDERED: POVIDONE IODINE 5% (ANTISEPSIS KIT) 4 APPLICATIONS EACH NARE SCH (09:00)
[2017-05-19] MEDS ORDERED: MIDAZOLAM HCL 5 MG/5 ML VIAL ONE (09:19)
[2017-05-19] MEDS ORDERED: LORazepam 2 MG/ML VIAL ONE (09:25)
[2017-05-19] MEDS ORDERED: SODIUM CHLORIDE 0.9% FLUSH 10 ML FLUSH IVF PRN (10:15)
--- NOTE | 2017-05-19 10:17 | PD.RAD ---
Post Procedure Progress Note Pre Procedure Diagnosis: (1) Laryngeal cancer Post Procedure Diagnosis: (1) Laryngeal cancer Procedure Date: May 19, 2017 Supervising Radiologist: Dion Coto Estimated blood loss: 2cc Anesthesia: Local, Analgesia Plan of Activity Patient to Unit: ROPU Patient Condition: Poor Additional Comments: Port placed via the right Subclavian vein. Catheter in good position OK for use. Chest evaluated with fluoroscopy. No PTX evident. See PACS Report for procedural detail/treatment Dion Coto MD May 19, 2017 10:17
--- NOTE | 2017-05-19 14:37 | RADRPT ---
EXAM DATE/TIME: 05/19/2017 08:54 [place] COMPARISON: No previous studies available for comparison. INDICATIONS : Patient presents with laryngeal cancer in need of port placement for chemotherapy treatment. MEDICAL HISTORY : Laryngeal cancer TIA Arthritis Blood clots DM CAD COPD GERD CVD KS HTN PVD MRSA lungs Heart disease Cataracts SURGICAL HISTORY : Choleysectomy Heart bypass Tracheostomy ENCOUNTER: Initial ACUITY: >1 year PAIN SCORE: 8/10 LOCATION: Right side of neck. FLUORO TIME: 0.5 minutes IMAGE SERIES: 0 SEDATION TIME: 60 minutes ACCESS: Right subclavian vein SEDATION: 1.) 100 mcg fentanyl (Sublimaze) IV 2.) 1 mg lorazepam (Ativan) IV Prophylactic antibiotics were administered with appropriate pre-procedure timing. Vancomycin within 2 hours of procedure, Ancef (or alternative) within 1 hour of procedure. DEVICE: 1. 8 [place] single lumen Smart port CT w/vortex PROCEDURE : 1. Continuous pulse oximetry and EKG monitoring. 2. Intravenous conscious sedation. 3. Ultrasound guidance for venous access. 4. Fluoroscopic guided implantable central venous port placement. The patient was placed supine. The neck was prepped in sterile fashion. Full sterile technique was u sed, including cap, mask, sterile gloves and gown, and a large sterile sheet. Hand hygiene and 2% ch lorhexidine Betadine was utilized per protocol for cutaneous antisepsis with appropriate dry time for site. Sterile gel and sterile probe cover were utilized for ultrasound guidance. The skin and sub cutaneous tissues were infiltrated with local anesthetic solution. Under direct ultrasound guidance, the right subclavian vein was accessed. The ultrasound images depi cting access guidance were stored and saved to PACS for permanent record. A subcutaneous pocket was created using blunt dissection. The port was introduced to the pocket. . The catheter tubing was c ut to a suitable length and then was introduced through a valved Peel-Away sheath and positioned with catheter tubing tip at the cavo-atrial junction level. The pocket incision was closed with subcutic ular Vicryl suture. Steri-Strips were applied. The port was flushed and locked with heparin solutio n per protocol. Sterile dressing was applied to the site. The patient tolerated the procedure well. Conscious sedation was performed with the prescribed dosages and duration as above in the presence of an independent trained radiology nurse to assist in the monitoring of the patient. EKG and oximetry remained stable throughout the procedure. The patient tolerated the procedure well and there were no complications. The patient was sent to post anesthesia recovery in stable condition. CONCLUSION: Uncomplicated ultrasound and fluoroscopic guided implanted central venous port catheter placement as described in detail above. An 8 [place] Power port was placed. Dion Coto MD on May 19, 2017 at 14:30 Board Certified Radiologist. This report was verified electronically.
== END 2017-05-19 12:30 | disposition home or self-care (01) ==
LOC: HRIP 07:51 → HROP 07:51
PROVIDERS: ATTEND Internal Medicine
DX: C32.9 Malignant neoplasm of larynx, unspecified (principal); E11.9 Type 2 diabetes mellitus without complications; I10 Essential (primary) hypertension; I25.10 Atherosclerotic heart disease of native coronary artery without angina pectoris; I73.9 Peripheral vascular disease, unspecified; J44.9 Chronic obstructive pulmonary disease, unspecified; K21.9 Gastro-esophageal reflux disease without esophagitis; Z86.73 Personal history of transient ischemic attack (TIA), and cerebral infarction without residual deficits
CPT/HCPCS: 36561; 76937; 77001; 85025; 85610; 85730; 99152; 99153; C1788; J0690; J1642; J2060; J2250; J3010; J3370; J7030; J7050

== ENCOUNTER 2017-05-27 23:56 | Observation (INO) | payer MEDICARE, MEDICAID ==
[~2017-05-27] VITALS: Ht 185.4 cm; Wt 70.2 kg
[~2017-05-27 23:56] MED LIST changes: -TRAM50TA PO
[2017-05-28] VITALS (8 sets, daily range): BP systolic 96–140; BP diastolic 51–69; PULSE 79–120; RESP 14–25; TEMP 95.9–99.3; O2SAT 93–100
[2017-05-28] MEDS ORDERED: SODIUM CHLOR 0.9% 1000 ML INJ 1,000 ML IV SCH ×2 (02:11→06:06)
[2017-05-28] MEDS ORDERED: ONDANSETRON HCL 4 MG/2 ML VIAL IVP ONE (02:15)
[2017-05-28 03:16] LABS: AUTOMATED NEUTROPHIL # 9.1 TH/MM3 (1.8-7.7); BASOPHIL % 0.5 % (0.0-2.0); HEMATOCRIT 34.4 % (39.0-51.0); HEMO FLAGS DIFF FINAL; LYMPH % 3.4 % (9.0-44.0); LYMPHOCYTE # 0.3 TH/MM3 (1.0-4.8); MEAN CELL VOLUME 85.2 FL (80.0-100.0); MEAN CORPUSCULAR HEMOGLOBIN 28.5 PG (27.0-34.0); MEAN CORPUSCULAR HGB CONC 33.4 % (32.0-36.0); MONO % 6.2 % (0.0-8.0); NEUT % 89.9 % (16.0-70.0); PLATELET COUNT 374 TH/MM3 (150-450); RED BLOOD COUNT 4.04 MIL/MM3 (4.50-5.90); RED CELL DISTRIBUTION WIDTH 16.6 % (11.6-17.2); WHITE BLOOD COUNT 10.1 TH/MM3 (4.0-11.0)
[2017-05-28 03:24] LABS: ALT (GPT) 16 U/L (12-78); ANION GAP 7 MEQ/L (5-15); AST (GOT) 20 U/L (15-37); BICARBONATE 30.3 MEQ/L (21.0-32.0); BLOOD UREA NITROGEN 26 MG/DL (7-18); CHLORIDE 94 MEQ/L (98-107); GLOMERULAR FILTRATION RATE 33 ML/MIN (>89); POTASSIUM 4.8 MEQ/L (3.5-5.1); SODIUM (NA) 131 MEQ/L (136-145)
[2017-05-28 03:27] LABS: ALKALINE PHOSPHATASE 147 U/L (45-117); TOTAL BILIRUBIN ADULT 0.3 MG/DL (0.2-1.0)
[2017-05-28] MEDS ORDERED: methylPREDNISolone SOD SUCC 125 MG/2 ML VIAL IV PUSH ONE (03:30)
[2017-05-28] MEDS ORDERED: SODIUM CHLOR 0.9% 1000 ML INJ 1,000 ML IV ONE (03:30)
--- NOTE | 2017-05-28 05:40 | PD ---
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) Cardiac Catheterization: Yes Cardiovascular Problems: Yes High Cholesterol: Yes Chemotherapy: Yes Congestive Heart Failure: Yes COPD: Yes Cerebrovascular Accident: Yes (TIA 02/16/2017 ) Coronary Artery Disease: Yes Diabetes: Yes Patient Takes Glucophage: No Diminished Hearing: No Endocrine: Yes Gastrointestinal Disorders: Yes GERD: Yes Genitourinary: Yes (POLYCYSTIC KIDNEY DISEASE) Headaches: Yes Hypertension: Yes Immune Disorder: No Implanted Vascular Access Dvce: No Kidney Stones: Yes Medical other: Yes (PVD) Musculoskeletal: Yes Neurologic: Yes Psychiatric: No Reproductive: No Respiratory: Yes Immunizations Current: Yes Myocardial Infarction: Yes Radiation Therapy: Yes Renal Failure: Yes Thyroid Disease: No Past Surgical History Abdominal Surgery: Yes (PEG TUBE) Arteriovenous Shunt: No Cardiac Surgery: Yes (QUAD BIPASS, BILAT FEM, STENTS, CORONARY ANGIO) Cholecystectomy: Yes Coronary Artery Bypass Graft: Yes Coronary Stent: Yes Ear Surgery: No Endocrine Surgery: No Eye Surgery: No Genitourinary Surgery: No Gynecologic Surgery: No Insulin Pump: No Joint Replacement: Yes (SCREWS IN LEFT SHOULDER) Oral Surgery: Yes (THROAT DIALATION) Thoracic Surgery: Yes Tonsillectomy: Yes Other Surgery: Yes (TRACHEOSTOMY) Family History Family Myocardial Infarction: Yes Social History Alcohol Use: No Tobacco Use: No (QUIT 2008) Substance Use: No Allergies-Medications (Allergen,Severity, Reaction): Coded Allergies: amlodipine (Unverified Allergy, Severe, 05/19/17) atorvastatin (Unverified Allergy, Severe, 05/19/17) niacin (Unverified Allergy, Severe, 05/28/17) CAUSES HIM TO FEEL HOT pravastatin (Unverified Allergy, Severe, 05/19/17) simvastatin (Unverified Allergy, Severe, 05/19/17) fish oil (Unverified Allergy, Intermediate, Diarrhea, 05/19/17) Reported Meds & Prescriptions Reported Meds & Active Scripts Active Oxygen (O2) Device 2 Liter MARGO.CANULA CONTINUOUS Oxygen Concentrator Portable Gaseous 2 L/min via Nasal Canula Continuous For 99 months Eliquis (Apixaban) 5 Mg Tab 5 Mg PO BID Xanax (Alprazolam) 0.25 Mg Tab 0.25 Mg PO Q8H PRN Prevacid Solutab ODT (Lansoprazole) 30 Mg Tab 30 Mg NG DAILY Hydrocodone-Acetaminophen 7.5-325 mg Tab 1 Tab PO Q4H PRN Quetiapine (Quetiapine Fumarate) 25 Mg Tab 12.5 Mg PO BID Levsin (Hyoscyamine Sulfate) 0.125 Mg Tab 0.125 Mg G-TUBE BID Duoneb (Ipratropium-Albuterol Neb) 0.5-2.5 Mg/3 Ml Neb 1 Nebule INH Q4HR NEB PRN Claritin Liq (Loratadine) 5 Mg/5 Ml Liq 10 Mg G-TUBE DAILY 30 Days Zofran Liq (Ondansetron HCl) 4 Mg/5 Ml Soln 4 Mg G-TUBE Q4HR PRN Miralax Powder (Polyethylene Glycol 3350 Powder) 17 Gm Powd 17 Gm G-TUBE DAILY PRN Mix and dissolve one measuring cap-ful (17 grams) in water or juice. Reported Metoprolol Tartrate 25 Mg Tab 12.5 Mg PEG BID Keytruda Inj (Pembrolizumab) 50 Mg Inj Cilostazol 50 Mg Tab 50 Mg PO BID Fentanyl Patch 72 HR (Fentanyl) 25 Mcg/Hr Patch 25 Mcg T-DERMAL Q72H Promethazine (Promethazine HCl) 12.5 Mg Tab 25 Mg PO Q6H PRN Pantoprazole (Pantoprazole Sodium) 40 Mg Tab 40 Mg PO DAILY Omeprazole 40 Mg Cap 40 Mg PO DAILY Nitroglycerin SL (Nitroglycerin) 0.4 Mg Subl 0.4 Mg SL DIRECTED PRN ONE TABLET UNDER THE TONGUE NEEDED FOR CHEST PAIN, MAY REPEAT EVERY FIVE MINUTES FOR A TOTAL OF 3 DOSES OR CALL 911 IF NO RELIEF Lidocaine Topical (Lidocaine HCl) 2 % Jel 1 Applic TOPICAL DAILY Citalopram (Citalopram Hydrobromide) 20 Mg Tab 20 Mg PO DAILY Review of Systems Except as stated in HPI: all other systems reviewed are Neg Physical Exam Narrative GENERAL: SKIN: Warm and dry. HEAD: Atraumatic. Normocephalic. EYES: Pupils equal and round. No scleral icterus. No injection or drainage. ENT: No nasal bleeding or discharge. Mucous membrANES DRY NECK: Trachea midline. No JVD. CARDIOVASCULAR: Regular rate and rhythm. RESPIRATORY: No accessory muscle use. Clear to auscultation. Breath sounds equal bilaterally. GASTROINTESTINAL: Abdomen soft, non-tender, nondistended. MUSCULOSKELETAL: Extremities without clubbing, cyanosis, or edema. No obvious deformities. NEUROLOGICAL: Awake and alert. No obvious cranial nerve deficits. Motor grossly within normal limits. Five out of 5 muscle strength in the arms and legs. Normal speech. PSYCHIATRIC: Appropriate mood and affect; insight and judgment normal. Data Data Last Documented VS Vital Signs Date Time Temp Pulse Resp B/P (MAP) Pulse Ox O2 Delivery O2 Flow Rate FiO2 05/28/17 05:20 99 Trach Collar 28 05/28/17 02:57 109 18 110/51 (70) 05/28/17 00:01 99.3 Orders Orders Complete Blood Count With Diff (05/28/17 02:11) Comprehensive Metabolic Panel (05/28/17 02:11) Lipase (05/28/17 02:11) Lactic Acid (05/28/17 02:11) Iv Access Insert/Monitor (05/28/17 02:11) Ecg Monitoring (05/28/17 02:11) Oximetry (05/28/17 02:11) NPO (05/28/17 02:11) Ondansetron Inj (Zofran Inj) (05/28/17 02:15) Sodium Chlor 0.9% 1000 Ml Inj (Ns 1000 M (05/28/17 02:11) Electrocardiogram (05/28/17 02:11) Methylprednisolone So Succ Inj (Solumedr (05/28/17 03:30) Sodium Chlor 0.9% 1000 Ml Inj (Ns 1000 M (05/28/17 03:30) Sputum Culture And Gram Stain (05/28/17 04:03) Admit Order (Ed Use Only) (05/28/17 06:03) Labs Laboratory Tests Test 05/28/17 03:00 White Blood Count 10.1 TH/MM3 Red Blood Count 4.04 MIL/MM3 Hemoglobin 11.5 GM/DL Hematocrit 34.4 % Mean Corpuscular Volume 85.2 FL Mean Corpuscular Hemoglobin 28.5 PG Mean Corpuscular Hemoglobin Concent 33.4 % Red Cell Distribution Width 16.6 % Platelet Count 374 TH/MM3 Mean Platelet Volume 7.9 FL Neutrophils (%) (Auto) 89.9 % Lymphocytes (%) (Auto) 3.4 % Monocytes (%) (Auto) 6.2 % Eosinophils (%) (Auto) 0.0 % Basophils (%) (Auto) 0.5 % Neutrophils # (Auto) 9.1 TH/MM3 Lymphocytes # (Auto) 0.3 TH/MM3 Monocytes # (Auto) 0.6 TH/MM3 Eosinophils # (Auto) 0.0 TH/MM3 Basophils # (Auto) 0.0 TH/MM3 CBC Comment DIFF FINAL Differential Comment Blood Urea Nitrogen 26 MG/DL Creatinine 2.00 MG/DL Random Glucose 157 MG/DL Total Protein 7.4 GM/DL Albumin 2.3 GM/DL Calcium Level 8.9 MG/DL Alkaline Phosphatase 147 U/L Aspartate Amino Transf (AST/SGOT) 20 U/L Alanine Aminotransferase (ALT/SGPT) 16 U/L Total Bilirubin 0.3 MG/DL Sodium Level 131 MEQ/L Potassium Level 4.8 MEQ/L Chloride Level 94 MEQ/L Carbon Dioxide Level 30.3 MEQ/L Anion Gap 7 MEQ/L Estimat Glomerular Filtration Rate 33 ML/MIN Lactic Acid Level 1.8 mmol/L Lipase 45 U/L [facility] Medical Decision Making Medical Screen Exam Complete: Yes Emergency Medical Condition: Yes Medical Record Reviewed: Yes Differential Diagnosis DEHYDRATION V ANEMIA V PNA V CDIFF COLITIS V CHEMO ADVERSE EFFECT Narrative Course ON EVALUATION NO E/O LEUKOPENIA/ANEMIA, ALSO MILD E/O DEHYDRATION ON BLOODWORK BUT WITH NL LFT'S... Diagnosis Primary Impression: Nausea & vomiting Qualified Codes: R11.2 - Nausea with vomiting, unspecified Additional Impression: Dehydration Admitting Information Admitting Physician Requests: Tato Sam MD May 28, 2017 05:40
[2017-05-28] MEDS ORDERED: NALOXONE HCL 0.4 MG/ML AMP IV PUSH PRN (06:15)
[2017-05-28] MEDS ORDERED: SODIUM CHLORIDE 0.9% FLUSH 10 ML FLUSH IV FLUSH PRN (06:15)
[2017-05-28] MEDS ORDERED: ONDANSETRON HCL 4 MG/2 ML VIAL IVP PRN (06:15)
[2017-05-28] MEDS ORDERED: PEMB1SOL (07:00)
[2017-05-28] MEDS ORDERED: CILO50TA PO (07:00)
[2017-05-28] MEDS ORDERED: SODIUM CHLORIDE 0.9% FLUSH 10 ML FLUSH IV FLUSH SCH (09:00)
[2017-05-28] MEDS ORDERED: METO25TA3 PEG (09:46)
[2017-05-28] MEDS ORDERED: ALPRAZolam 0.25 MG TAB PO PRN (12:45)
[2017-05-28] MEDS ORDERED: APIXABAN 5 MG TABLET PO SCH (12:45)
[2017-05-28] MEDS ORDERED: CILOSTAZOL 50 MG TAB PO SCH (12:45)
--- NOTE | 2017-05-28 13:10 | HHI.DCPOC ---
Discharge Care Plan Diagnosis: (1) Nausea & vomiting (2) Diarrhea (3) Laryngeal cancer (4) Chronic kidney disease, stage 4 (severe) (5) Dysphagia (6) Tracheostomy dependent Goals to Promote Your Health * To prevent worsening of your condition and complications * To maintain your health at the optimal level Directions to Meet Your Goals Take your medications as prescribed Follow your dietary instruction Follow activity as directed Keep your appointments as scheduled Take your immunizations and boosters as scheduled If your symptoms worsen call your PCP, if no PCP go to Urgent Care Center or Emergency Room Smoking is Dangerous to Your Health. Avoid second hand smoke Call the 24-hour hour crisis hotline for domestic abuse at Jack Wong DO May 28, 2017 13:10
--- NOTE | 2017-05-28 13:28 | HHI.HP ---
HPI Service [facility] Primary Care Physician Juliane Briggs MD Admission Diagnosis NAUSEA/VOMITING CHEMO RELATED, DEHYDRATION, ACUTE ON CHRONIC KIDNEY Diagnoses: Chief Complaint: nausea/vomiting/diarrhea Travel History International Travel<30 Days: No Contact w/Intl Traveler <30 Da: No Traveled to Known Affected Are: No History of Present Illness Written by Delores Kinsey, acting as scribe for Dr. Wong on 05/28/17 at 13: 08. 66-year-old male with history of laryngeal cancer stage IV, tracheostomy, blood clots on Eliquis, CAD, CABG, COPD, GERD, HTN, HLD, PVD, DM, chronic pain, presents with acute onset one day history of intractable nausea, vomiting, and diarrhea. Patient seen with his daughter at bedside who assists with history. The patient reports that yesterday afternoon he started to feel nauseous with intractable vomiting, emesis described as nonbloody. He also had an episode of profuse watery nonbloody diarrhea. His symptoms worsened throughout the night. He does not have any oral intake at baseline secondary to mass, but was unable to tolerate his tube feeds. His was worried that he was having a heart attack and urged him to come to the hospital despite the patient wanting to stay home. He states in the past he has had a heart attack without any chest pain. He denies any chest pain with this episode. Denies any fever/chills, abdominal pain, or urinary complaints. He is on Keytruda, last dose 10 days ago , denies any side effects with prior doses. He has an upcoming appointment with his oncologist Dr. Melchor on 06/05. Currently, the patient is seen on the oncology floor after admission. He is feeling much better, no further nausea/ vomiting/diarrhea today. He wants to go home. Daughter at bedside, agrees with this plan. Review of Systems Except as stated in HPI: all other systems reviewed are Neg Past Family Social History Past Medical History laryngeal cancer stage IV blood clots on Eliquis CAD s/p CABG and stents COPD GERD HTN HLD PVD DM chronic pain Polycystic kidney disease Past Surgical History Tracheostomy, two months ago Port placement PEG tube, two years ago CABG 2 vessels and multiple cardiac stents (6total) Peripheral vascular stents Cholecystectomy Reported Medications Home med list reviewed at bedside with patient and daughter, not updated in system yet Allergies: Coded Allergies: amlodipine (Unverified Allergy, Severe, 05/19/17) atorvastatin (Unverified Allergy, Severe, 05/19/17) niacin (Unverified Allergy, Severe, 05/28/17) CAUSES HIM TO FEEL HOT pravastatin (Unverified Allergy, Severe, 05/19/17) simvastatin (Unverified Allergy, Severe, 05/19/17) fish oil (Unverified Allergy, Intermediate, Diarrhea, 05/19/17) Active Ordered Medications Current Medications Medications (Trade) Dose Ordered Sig/Alea Route Start Time Stop Time Status Last Admin Sodium Chloride 1,000 ml @ 100 mls/hr Q10H IV 05/28/17 06:06 05/28/17 06:30 (NS Flush) 2 ml UNSCH PRN IV FLUSH 05/28/17 06:15 (NS Flush) 2 ml BID IV FLUSH 05/28/17 09:00 05/28/17 09:50 (Zofran Inj) 4 mg Q6H PRN IVP 05/28/17 06:15 (Narcan Inj) 0.4 mg UNSCH PRN IV PUSH 05/28/17 06:15 (Xanax) 0.25 mg Q8H PRN PO 05/28/17 12:45 UNV (Eliquis) 5 mg BID PO 05/28/17 12:45 UNV (Pletal) 50 mg BID PO 05/28/17 12:45 UNV (CeleXA) 20 mg DAILY PO 05/29/17 09:00 UNV (Duragesic 25 Mcg Patch.72 Hr) 1 patch Q72H T-DERMAL 05/28/17 12:45 UNV (Levsin) 0.125 mg BID G-TUBE 05/28/17 21:00 UNV (Xylocaine 2% Jelly) 1 applic DAILY TOPICAL 05/29/17 09:00 UNV (Lopressor) 12.5 mg BID PEG 05/28/17 21:00 UNV (Protonix) 40 mg DAILY PO 05/29/17 09:00 UNV (SEROquel) 12.5 mg BID PO 05/28/17 21:00 UNV Family History Family history significant for stroke, hypertension, diabetes, and polycystic kidney disease Denies any family history of cancer Social History Prior tobacco use age [age], 3PPD, quit in 2006 Denies any alcohol or illicit drug use Physical Exam Vital Signs Vital Signs Date Time Temp Pulse Resp B/P (MAP) Pulse Ox O2 Delivery O2 Flow Rate FiO2 05/28/17 12:00 95.9 79 18 132/67 (88) 97 05/28/17 10:20 96.9 87 18 139/69 (92) 95 05/28/17 09:47 98 05/28/17 09:40 85 25 140/67 (91) 98 T-piece 5.00 28 05/28/17 07:52 100 Trach Collar 5.00 28 05/28/17 06:51 95 14 140/67 (91) 98 05/28/17 05:20 99 Trach Collar 28 05/28/17 02:57 109 18 110/51 (70) 93 Room Air 05/28/17 00:01 99.3 120 20 96/51 (66) 96 Physical Exam GENERAL: Well-nourished, well-developed pleasant male patient in [facility]. SKIN: Warm and dry. No rash. HEAD: Normocephalic. Atraumatic. EYES: Pupils equal and round. No scleral icterus. No injection or drainage. ENT: No nasal bleeding or discharge. Mucous membranes pink and moist. NECK: Supple. Tracheostomy in place. CARDIOVASCULAR: Regular rate and rhythm. S1, S2 noted. No murmur appreciated. RESPIRATORY: No accessory muscle use. Diminished lung sounds bilaterally, otherwise clear to auscultation. Breath sounds equal bilaterally. GASTROINTESTINAL: Abdomen soft, non-tender, nondistended. Normoactive bowel sounds x4. PEG in place, no surrounding erythema/edema/drainage. MUSCULOSKELETAL: No obvious deformities. Extremities without clubbing, cyanosis , or edema. NEUROLOGICAL: Awake and alert. No obvious cranial nerve deficits. Motor grossly within normal limits. Normal speech. PSYCHIATRIC: Appropriate mood and affect; insight and judgment normal. Laboratory Laboratory Tests Test 05/28/17 03:00 White Blood Count 10.1 Red Blood Count 4.04 Hemoglobin 11.5 Hematocrit 34.4 Mean Corpuscular Volume 85.2 Mean Corpuscular Hemoglobin 28.5 Mean Corpuscular Hemoglobin Concent 33.4 Red Cell Distribution Width 16.6 Platelet Count 374 Mean Platelet Volume 7.9 Neutrophils (%) (Auto) 89.9 Lymphocytes (%) (Auto) 3.4 Monocytes (%) (Auto) 6.2 Eosinophils (%) (Auto) 0.0 Basophils (%) (Auto) 0.5 Neutrophils # (Auto) 9.1 Lymphocytes # (Auto) 0.3 Monocytes # (Auto) 0.6 Eosinophils # (Auto) 0.0 Basophils # (Auto) 0.0 CBC Comment DIFF FINAL Differential Comment Blood Urea Nitrogen 26 Creatinine 2.00 Random Glucose 157 Total Protein 7.4 Albumin 2.3 Calcium Level 8.9 Alkaline Phosphatase 147 Aspartate Amino Transf (AST/SGOT) 20 Alanine Aminotransferase (ALT/SGPT) 16 Total Bilirubin 0.3 Sodium Level 131 Potassium Level 4.8 Chloride Level 94 Carbon Dioxide Level 30.3 Anion Gap 7 Estimat Glomerular Filtration Rate 33 Lactic Acid Level 1.8 Lipase 45 Date/Time Source Procedure Growth Status 05/28/17 04:00 Sputum Expectorated Sputum Gram Stain Pending Received 05/28/17 04:00 Sputum Expectorated Sputum Sputum Culture Pending Received Result Diagram: 05/28/17 03005/28/17 030 Caprini VTE Risk Assessment Caprini VTE Risk Assessment: Mod/High Risk (score >= 2) Caprini Risk Assessment Model Point Value = 1 Point Value = 2 Point Value = 3 Point Value = 5 Age 41-60 Minor surgery BMI > 25 kg/m2 Swollen legs Varicose veins or History of unexplained or recurrent spontaneous Oral contraceptives or hormone replacement Sepsis (< 1 month) Serious lung disease, including pneumonia (< 1 month) Abnormal pulmonary function Acute myocardial infarction Congestive heart failure (< 1 month) History of inflammatory bowel disease Medical patient at bed rest Age 61-74 Arthroscopic surgery Major open surgery (> 45 min) Laparoscopic surgery (> 45 min) Malignancy Confined to bed (> 72 hours) Immobilizing plaster cast Central venous access Age >= 75 History of VTE Family history of VTE Factor V Leiden Prothrombin [id number] Lupus anticoagulant Anticardiolipin antibodies Elevated serum homocysteine Heparin-induced thrombocytopenia Other congenital or acquired thrombophilia Stroke (< 1 month) Elective arthroplasty Hip, pelvis, or leg fracture Acute spinal cord injury (< 1 month) Prophylaxis Regimen Total Risk Factor Score Risk Level Prophylaxis Regimen 0-1 Low Early ambulation 2 Moderate Order ONE of the following: *Sequential Compression Device (SCD) *Heparin 5000 units SQ BID 3-4 Higher Order ONE of the following medications: *Heparin 5000 units SQ TID *Enoxaparin/Lovenox 40 mg SQ daily (WT < 150 kg, CrCl > 30 mL/min) *Enoxaparin/Lovenox 30 mg SQ daily (WT < 150 kg, CrCl > 10-29 mL/min) *Enoxaparin/Lovenox 30 mg SQ BID (WT < 150 kg, CrCl > 30 mL/min) AND/OR *Sequential Compression Device (SCD) 5 or more Highest Order ONE of the following medications: *Heparin 5000 units SQ TID (Preferred with Epidurals) *Enoxaparin/Lovenox 40 mg SQ daily (WT < 150 kg, CrCl > 30 mL/min) *Enoxaparin/Lovenox 30 mg SQ daily (WT < 150 kg, CrCl > 10-29 mL/min) *Enoxaparin/Lovenox 30 mg SQ BID (WT < 150 kg, CrCl > 30 mL/min) AND *Sequential Compression Device (SCD) Assessment and Plan Assessment and Plan 66-year-old male with history of laryngeal cancer stage IV, tracheostomy, blood clots on Eliquis, CAD, CABG, COPD, GERD, HTN, HLD, PVD, DM, chronic pain, presents with acute onset one day history of intractable nausea, vomiting, and diarrhea. Intractable Nausea/Vomiting/Diarrhea with Dehydration: suspect Gastroenteritis vs Keytruda side effect. -Given supportive treatment with IVF, antiemetics, and pain control prn -Symptoms now all resolved, stable for discharge Laryngeal Cancer s/p Tracheostomy: on Keytruda. Follows with oncologist Dr. Melchor. -continue outpatient f/up with Dr. Melchor, has upcoming appt on 06/05. The pt will call to see if he can move that appointment earlier. DVT: chronic -continue patient's Eliquis Dysphagia: secondary to laryngeal mass, patient does not take anything by mouth -continue tube feeds, takes 6-8 cans of Suplena daily as tolerated Polycystic Kidney Disease: Cr 2.00, appears around baseline. -given IVF as patient appeared dry on exam upon arrival, with recent N/V -follow up as outpatient Hyponatremia: Na 131, suspect secondary to recent N/V -given IVF with NS All other medical conditions listed above stable, continue home medications as appropriate. DVT Prophylaxis: on Eliquis Code Status Full Code Discussed Condition With Patient, Patient's daughter, .net architect, Dr. Melchro Discharge Planning Patient much improved upon assessment. He wants to go home. Stable for discharge. Discharge patient to home Condition on discharge: Improved Tube feeds as tolerated Ad Lissette activity Rx written: no changes to meds Follow-up with primary care physician and oncologist Dr. Melchor as scheduled on Attending Statement This note was transcribed by nell Kinsey. I, Dr. Jack Wong personally performed the history, physical exam, and medical decision making; and confirmed the accuracy of the information in the transcribed note. Authenticated by Dr. Jack Wong on 05/28/17 at 14:50. Delores Kinsey PA-C May 28, 2017 13:28 Jack Wong DO May 28, 2017 14:50
[2017-05-28] MEDS ORDERED: PILL SPLITTER OTHER PRN (13:45)
[2017-05-28] MEDS ORDERED: fentaNYL 25 MCG/HR PATCH T-DERMAL SCH (14:00)
--- NOTE | 2017-05-28 14:48 | EKG ---
Date Performed: 05/28/2017 Time Performed: 02:53:57 PTAGE: 66 years EKG: SINUS TACHYCARDIA NONSPECIFIC ST & T-WAVE ABNORMALITY ABNORMAL ECG Compared to prior tracin g no significant change DOCTOR: Cherri Beckett Interpretating Date/Time 05/28/2017 14:47:31
[2017-05-28] MEDS ORDERED: METOPROLOL TARTRATE 25 MG TAB PEG SCH (21:00)
[2017-05-28] MEDS ORDERED: QUEtiapine FUMARATE 25 MG TAB PO SCH (21:00)
[2017-05-28] MEDS ORDERED: HYOSCYAMINE 0.125 MG TAB G-TUBE SCH (21:00)
[2017-05-29] MEDS ORDERED: CITALOPRAM HYDROBROMIDE 20 MG TAB PO SCH (09:00)
[2017-05-29] MEDS ORDERED: LIDOCAINE 2% JELLY 30 ML TUBE TOPICAL SCH (09:00)
[2017-05-29] MEDS ORDERED: PANTOPRAZOLE SOD 40 MG DELAYED RELEASE TAB PO SCH (09:00)
[2017-05-31] MEDS ORDERED: REMOVE OLD DURAGESIC (FENTANYL) PATCH T-DERMAL SCH (14:00)
== END 2017-05-28 17:06 | disposition home or self-care (01) ==
LOC: NEPC 23:56 → NEDA 05-28 06:05 → HOCA 05-28 09:51
PROVIDERS: ADMIT Family Medicine; ATTEND Family Medicine
DX: R11.2 Nausea with vomiting, unspecified (principal); R19.7 Diarrhea, unspecified; T45.1X5A Adverse effect of antineoplastic and immunosuppressive drugs, initial encounter; C32.9 Malignant neoplasm of larynx, unspecified; E86.0 Dehydration; I12.9 Hypertensive chronic kidney disease with stage 1 through stage 4 chronic kidney disease, or unspecified chronic kidney disease; N18.4 Chronic kidney disease, stage 4 (severe); E11.22 Type 2 diabetes mellitus with diabetic chronic kidney disease; R13.19 Other dysphagia; I25.10 Atherosclerotic heart disease of native coronary artery without angina pectoris; E78.5 Hyperlipidemia, unspecified; E87.1 Hypo-osmolality and hyponatremia; B95.62 Methicillin resistant Staphylococcus aureus infection as the cause of diseases classified elsewhere; B96.5 Pseudomonas (aeruginosa) (mallei) (pseudomallei) as the cause of diseases classified elsewhere; B96.20 Unspecified Escherichia coli [E. coli] as the cause of diseases classified elsewhere; K21.9 Gastro-esophageal reflux disease without esophagitis; J44.9 Chronic obstructive pulmonary disease, unspecified; I73.9 Peripheral vascular disease, unspecified; Z93.0 Tracheostomy status; Z95.5 Presence of coronary angioplasty implant and graft
CPT/HCPCS: 80053; 83605; 83690; 85025; 86403; 87070; 87077; 87147; 87186; 87205; 93005; 96361; 96374; 96375; 99285; A7520; G0378; J2405; J2930; J7030

== ENCOUNTER 2017-06-16 11:50 | Inpatient (IN) | payer MEDICARE, MEDICAID ==
[~2017-06-16] VITALS: Ht 188 cm; Wt 63.0 kg
[~2017-06-16 11:50] MED LIST changes: +CILO50TA PO; -DRON2.5C PO; -FURO1TAB62 PO; +METO25TA3 PEG; -METO50TA G-TUBE; +PEMB1SOL
[2017-06-16 12:04] VITALS: BP 129/58; PULSE 123; RESP 33; TEMP 97.9; O2SAT 97
[2017-06-16 12:08] VITALS: O2SAT 89
[2017-06-16] MEDS ORDERED: SODIUM CHLOR 0.9% 1000 ML INJ 1,000 ML IV SCH (12:20)
[2017-06-16] MEDS ORDERED: SODIUM CHLORIDE 0.9% FLUSH 5 ML FLUSH IV FLUSH PRN (12:30)
[2017-06-16 12:45] LABS: AUTOMATED NEUTROPHIL # 13.5 TH/MM3 (1.8-7.7); BASOPHIL % 0.2 % (0.0-2.0); HEMATOCRIT 33.2 % (39.0-51.0); HEMO FLAGS DIFF FINAL; LYMPH % 1.8 % (9.0-44.0); LYMPHOCYTE # 0.3 TH/MM3 (1.0-4.8); MEAN CELL VOLUME 85.8 FL (80.0-100.0); MEAN CORPUSCULAR HEMOGLOBIN 27.2 PG (27.0-34.0); MEAN CORPUSCULAR HGB CONC 31.7 % (32.0-36.0); MONO % 5.9 % (0.0-8.0); NEUT % 92.1 % (16.0-70.0); PLATELET COUNT 404 TH/MM3 (150-450); RED BLOOD COUNT 3.87 MIL/MM3 (4.50-5.90); RED CELL DISTRIBUTION WIDTH 16.5 % (11.6-17.2); WHITE BLOOD COUNT 14.7 TH/MM3 (4.0-11.0)
--- NOTE | 2017-06-16 13:00 | RADRPT ---
EXAM DATE/TIME: 06/16/2017 12:32 [facility] COMPARISON: CHEST SINGLE AP, April 10, 2017, 6:36. INDICATIONS : Shortness of breath. MEDICAL HISTORY : Congestive heart failure. Chronic obstructive pulmonary disease. SURGICAL HISTORY : CABG. Coronary artery stent. tracheostomy, Peg tube. ENCOUNTER: Initial ACUITY: 1 day PAIN SCORE: Non-responsive. LOCATION: Bilateral chest FINDINGS: The heart is normal in size. The [id number] in excellent position. There are chronic interstitial changes within the pulmonary parenchyma. The lungs are otherwise clear. The lungs are significantly i mproved compared to previous dated 04/10/17. The tracheostomy is in satisfactory position. CONCLUSION: 1. Chronic interstitial changes. 2. The exam is significantly improved when compared to prior. 3. Support equipment in good position. Dion Coto MD on June 16, 2017 at 12:57 Board Certified Radiologist. This report was verified electronically.
[2017-06-16 13:02] LABS: INTERNATIONAL NORMALIZED RATIO 1.1 RATIO; PROTHROMBIN TIME - PATIENT 12.3 SEC (9.8-11.6)
[2017-06-16 13:04] LABS: APTT (PATIENT) 33.3 SEC (24.3-30.1)
[2017-06-16 13:10] LABS: ANION GAP 11 MEQ/L (5-15); AST (GOT) 16 U/L (15-37); BICARBONATE 26.5 MEQ/L (21.0-32.0); BLOOD UREA NITROGEN 23 MG/DL (7-18); CHLORIDE 89 MEQ/L (98-107); GLOMERULAR FILTRATION RATE 39 ML/MIN (>89); POTASSIUM 5.1 MEQ/L (3.5-5.1); SODIUM (NA) 126 MEQ/L (136-145)
--- NOTE | 2017-06-16 13:10 | RADRPT ---
EXAM DATE/TIME: 06/16/2017 12:42 [facility] COMPARISON: CT SIMULATION, March 31, 2017, 14:33. INDICATIONS : Letargic,altered mental status RADIATION DOSE: 56.35 CTDIvol (mGy) MEDICAL HISTORY : Chronic obstructive pulmonary disease. Cerebrovascular disease. Cardiovascular diseaseHypertension,r enal failure,laryngeal cancer,DVT SURGICAL HISTORY : TRACH ENCOUNTER: Initial ACUITY: 1 day PAIN SCALE: Non-responsive LOCATION: cranial TECHNIQUE: Multiple contiguous axial images were obtained of the head. Using automated exposure control and adj ustment of the mA and/or kV according to patient size, radiation dose was kept as low as reasonably a chievable to obtain optimal diagnostic quality images. DICOM format image data is available electro nically for review and comparison. FINDINGS: CEREBRUM: The ventricles are normal for age. There is cortical atrophy. No evidence of midline shift, mass les ion, hemorrhage or acute infarction. There is an old, encephalomalacic infarct involving the right ba kei ganglia. No extra-axial fluid collections are seen. POSTERIOR FOSSA: The cerebellum and brainstem are intact. The 4th ventricle is midline. The cerebellopontine angle i s unremarkable. EXTRACRANIAL: The visualized portion of the orbits is intact. SKULL: The calvaria is intact. No evidence of skull fracture. CONCLUSION: 1. Cortical atrophy. 2. 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 3. No acute intracranial abnormality identified. Dion Coto MD on June 16, 2017 at 13:01 Board Certified Radiologist. This report was verified electronically.
[2017-06-16 13:11] LABS: ALT (GPT) 13 U/L (12-78)
[2017-06-16 13:15] LABS: ALKALINE PHOSPHATASE 114 U/L (45-117); TOTAL BILIRUBIN ADULT 0.3 MG/DL (0.2-1.0)
[2017-06-16] MEDS ORDERED: CEFEPIME INJ 1,000 MG in SODIUM CHLORIDE 0.9% INJ 100 ML IV ONE (13:15)
[2017-06-16 13:29] LABS: CREATINE KINASE 32 U/L (39-308)
[2017-06-16 13:45] VITALS: BP 110/55; PULSE 126; RESP 24; O2SAT 100
[2017-06-16] MEDS ORDERED: VANCOMYCIN INJ 1,050 MG in SODIUM CHLOR 0.9% 250 ML INJ 250 ML IV SCH (13:45)
[2017-06-16 13:54] LABS: BLOOD GAS BASE EXCESS -0.6 mmol/L (-2-2); BLOOD GAS CARBOXYHEMOGLOBIN 1.3 % (0-4); BLOOD GAS HCO3 25 mmol/L (22-26); BLOOD GAS METHEMOGLOBIN 0.4 % (0-2); BLOOD GAS O2 HGB SATURATION 96 % (90-100); BLOOD GAS OXYGEN CONTENT 13.6 Vol % (12.0-20.0); BLOOD GAS PCO2 53 mmHg (38-42); BLOOD GAS PO2 106 mmHG (61-120); BLOOD GAS TOTAL HGB 9.9 G/DL (12.0-16.0); TEMP CORR TO 98.6
[2017-06-16 13:55] LABS: CRITICAL VALUE YES; DRAW SITE RT RADIAL; FIO2 100 %; LITER FLOW 7 L/M; NUMBER OF ARTERIAL PUNCTURES 1; OXYGEN DEVICE MASK; STAT YES; ULNAR PULSE PRESENT
[2017-06-16 14:24] LABS: BLOOD, URINE NEG (NEG); GLUCOSE,URINE NEG (NEG); KETONE, URINE NEG (NEG); NITRITE,URINE NEG (NEG); PH, URINE 5.5 (5.0-8.5); URINE COLOR YELLOW (YELLW/STRAW)
[2017-06-16 14:29] LABS: COMMENT (UR) CATH-CULT NOT IND; CULTURE IF INDICATED CATH CULTURE NOT IND
[2017-06-16 14:32] LABS: LACTIC ACID GHOST NOT REPORTABLE
--- NOTE | 2017-06-16 16:20 | PD ---
HPI Chief Complaint: Altered Mental Status Time Seen by Provider: 12:08 Travel History International Travel<30 days: No Contact w/Intl Traveler<30days: No Traveled to known affect area: No History of Present Illness HPI Patient is a 66 year old male with history of laryngeal cancer, who comes in due to altered mental status. Per , he was fine until early this morning. This is when he stopped responding to her. Family says last time he was sick, he had MRSA in his sputum. states that she was having to change out his trach multiple times overnight because it is getting quadrant with blood and sputum. Per , he did walk himself to the bathroom early this morning before she noticed the acute change. There is no falls. Patient is unable to provide any history. 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) Cardiac Catheterization: Yes Cardiovascular Problems: Yes High Cholesterol: Yes Chemotherapy: Yes Congestive Heart Failure: Yes COPD: Yes Cerebrovascular Accident: Yes (TIA 02/16/2017 ) Coronary Artery Disease: Yes Diabetes: Yes Patient Takes Glucophage: No Diminished Hearing: No Endocrine: Yes Gastrointestinal Disorders: Yes GERD: Yes Genitourinary: Yes (POLYCYSTIC KIDNEY DISEASE) Headaches: Yes Hypertension: Yes Immune Disorder: No Implanted Vascular Access Dvce: No Kidney Stones: Yes Medical other: Yes (PVD) Musculoskeletal: Yes Neurologic: Yes Psychiatric: No Reproductive: No Respiratory: Yes Immunizations Current: Yes Myocardial Infarction: Yes Radiation Therapy: Yes Renal Failure: Yes Thyroid Disease: No Past Surgical History Abdominal Surgery: Yes (PEG TUBE) Arteriovenous Shunt: No Cardiac Surgery: Yes (QUAD BIPASS, BILAT FEM, STENTS, CORONARY ANGIO) Cholecystectomy: Yes Coronary Artery Bypass Graft: Yes Coronary Stent: Yes Ear Surgery: No Endocrine Surgery: No Eye Surgery: No Genitourinary Surgery: No Gynecologic Surgery: No Insulin Pump: No Joint Replacement: Yes (SCREWS IN LEFT SHOULDER) Oral Surgery: Yes (THROAT DIALATION) Thoracic Surgery: Yes Tonsillectomy: Yes Other Surgery: Yes (TRACHEOSTOMY) Family History Family Myocardial Infarction: Yes Social History Alcohol Use: No Tobacco Use: No (QUIT 2008) Substance Use: No Allergies-Medications (Allergen,Severity, Reaction): Coded Allergies: amlodipine (Unverified Allergy, Severe, 06/16/17) atorvastatin (Unverified Allergy, Severe, 06/16/17) niacin (Unverified Allergy, Severe, 06/16/17) CAUSES HIM TO FEEL HOT pravastatin (Unverified Allergy, Severe, 06/16/17) simvastatin (Unverified Allergy, Severe, 06/16/17) fish oil (Unverified Allergy, Intermediate, Diarrhea, 06/16/17) Reported Meds & Prescriptions Reported Meds & Active Scripts Active Oxygen (O2) Device 2 Liter MARGO.CANULA CONTINUOUS Oxygen Concentrator Portable Gaseous 2 L/min via Nasal Canula Continuous For 99 months Eliquis (Apixaban) 5 Mg Tab 5 Mg PO BID Xanax (Alprazolam) 0.25 Mg Tab 0.25 Mg PO Q8H PRN Prevacid Solutab ODT (Lansoprazole) 30 Mg Tab 30 Mg NG DAILY Hydrocodone-Acetaminophen 7.5-325 mg Tab 1 Tab PO Q4H PRN Quetiapine (Quetiapine Fumarate) 25 Mg Tab 12.5 Mg PO BID Levsin (Hyoscyamine Sulfate) 0.125 Mg Tab 0.125 Mg G-TUBE BID Duoneb (Ipratropium-Albuterol Neb) 0.5-2.5 Mg/3 Ml Neb 1 Nebule INH Q4HR NEB PRN Claritin Liq (Loratadine) 5 Mg/5 Ml Liq 10 Mg G-TUBE DAILY 30 Days Zofran Liq (Ondansetron HCl) 4 Mg/5 Ml Soln 4 Mg G-TUBE Q4HR PRN Miralax Powder (Polyethylene Glycol 3350 Powder) 17 Gm Powd 17 Gm G-TUBE DAILY PRN Mix and dissolve one measuring cap-ful (17 grams) in water or juice. Reported Metoprolol Tartrate 25 Mg Tab 12.5 Mg PEG BID Keytruda Inj (Pembrolizumab) 50 Mg Inj Cilostazol 50 Mg Tab 50 Mg PO BID Fentanyl Patch 72 HR (Fentanyl) 25 Mcg/Hr Patch 25 Mcg T-DERMAL Q72H Promethazine (Promethazine HCl) 12.5 Mg Tab 25 Mg PO Q6H PRN Pantoprazole (Pantoprazole Sodium) 40 Mg Tab 40 Mg PO DAILY Omeprazole 40 Mg Cap 40 Mg PO DAILY Nitroglycerin SL (Nitroglycerin) 0.4 Mg Subl 0.4 Mg SL DIRECTED PRN ONE TABLET UNDER THE TONGUE NEEDED FOR CHEST PAIN, MAY REPEAT EVERY FIVE MINUTES FOR A TOTAL OF 3 DOSES OR CALL 911 IF NO RELIEF Lidocaine Topical (Lidocaine HCl) 2 % Jel 1 Applic TOPICAL DAILY Citalopram (Citalopram Hydrobromide) 20 Mg Tab 20 Mg PO DAILY Review of Systems ROS Limitations: Altered Mental Status Physical Exam Narrative GENERAL: Awake, occasionally says yes or no to questions. SKIN: Focused skin assessment warm/dry. HEAD: Atraumatic. Normocephalic. EYES: Pupils equal and round. No scleral icterus. No injection or drainage. ENT: Mucous membranes pink and moist. NECK: Trachea midline. No JVD. Tracheostomy in place, large amount of sputum from the trach. CARDIOVASCULAR: Tachycardia. No murmur appreciated. RESPIRATORY: No accessory muscle use. Clear to auscultation. Breath sounds equal bilaterally. GASTROINTESTINAL: Abdomen soft, non-tender, nondistended. MUSCULOSKELETAL: No obvious deformities. No clubbing. No cyanosis. No edema. NEUROLOGICAL: Awake occasionally answering questions. No obvious cranial nerve deficits. Motor grossly within normal limits. Data Data Last Documented VS Vital Signs Date Time Temp Pulse Resp B/P (MAP) Pulse Ox O2 Delivery O2 Flow Rate FiO2 06/16/17 13:45 126 24 110/55 (73) 100 Trach Collar 100 06/16/17 12:08 6.00 06/16/17 12:04 97.9 Orders Orders Complete Blood Count With Diff (06/16/17 12:20) Comprehensive Metabolic Panel (06/16/17 12:20) Creatine Kinase (Cpk) (06/16/17 12:20) Prothrombin Time / Inr (Pt) (06/16/17 12:20) Act Partial Throm Time (Ptt) (06/16/17 12:20) Troponin I (06/16/17 12:20) Urinalysis - C+S If Indicated (06/16/17 12:20) Lactic Acid Sepsis Protocol (06/16/17 12:20) Chest, Single Ap (06/16/17 12:20) Ct Brain W/O Iv Contrast(Rout) (06/16/17 12:20) Blood Glucose (06/16/17 12:20) Ecg Monitoring (06/16/17 12:20) Iv Access Insert/Monitor (06/16/17 12:20) Oximetry (06/16/17 12:20) Sodium Chloride 0.9% Flush (Ns Flush) (06/16/17 12:30) Sodium Chlor 0.9% 1000 Ml Inj (Ns 1000 M (06/16/17 12:20) Cefepime Inj (Maxipime Inj) (06/16/17 13:15) Blood Culture (06/16/17 13:31) Vancomycin Inj (Vancomycin Inj) (06/16/17 13:45) Arterial Blood Gas (Abg) (06/16/17 13:40) Sputum Culture And Gram Stain (06/16/17 14:08) Urinary Catheter Insert/Apply (06/16/17 14:08) (Hub Use Only)Inp Phy Cons/Ref (06/16/17 ) Admit Order (Ed Use Only) (06/16/17 ) Labs Laboratory Tests Test 06/16/17 12:25 06/16/17 13:40 06/16/17 13:50 06/16/17 15:28 White Blood Count 14.7 TH/MM3 Red Blood Count 3.87 MIL/MM3 Hemoglobin 10.5 GM/DL Hematocrit 33.2 % Mean Corpuscular Volume 85.8 FL Mean Corpuscular Hemoglobin 27.2 PG Mean Corpuscular Hemoglobin Concent 31.7 % Red Cell Distribution Width 16.5 % Platelet Count 404 TH/MM3 Mean Platelet Volume 8.3 FL Neutrophils (%) (Auto) 92.1 % Lymphocytes (%) (Auto) 1.8 % Monocytes (%) (Auto) 5.9 % Eosinophils (%) (Auto) 0.0 % Basophils (%) (Auto) 0.2 % Neutrophils # (Auto) 13.5 TH/MM3 Lymphocytes # (Auto) 0.3 TH/MM3 Monocytes # (Auto) 0.9 TH/MM3 Eosinophils # (Auto) 0.0 TH/MM3 Basophils # (Auto) 0.0 TH/MM3 CBC Comment DIFF FINAL Differential Comment Prothrombin Time 12.3 SEC Prothromb Time International Ratio 1.1 RATIO Activated Partial Thromboplast Time 33.3 SEC Blood Urea Nitrogen 23 MG/DL Creatinine 1.75 MG/DL Random Glucose 186 MG/DL Total Protein 6.7 GM/DL Albumin 2.2 GM/DL Calcium Level 9.3 MG/DL Alkaline Phosphatase 114 U/L Aspartate Amino Transf (AST/SGOT) 16 U/L Alanine Aminotransferase (ALT/SGPT) 13 U/L Total Bilirubin 0.3 MG/DL Sodium Level 126 MEQ/L Potassium Level 5.1 MEQ/L Chloride Level 89 MEQ/L Carbon Dioxide Level 26.5 MEQ/L Anion Gap 11 MEQ/L Estimat Glomerular Filtration Rate 39 ML/MIN Lactic Acid Level 3.4 mmol/L 1.4 mmol/L Total Creatine Kinase 32 U/L Troponin I LESS THAN 0.02 NG/ML Blood Gas Puncture Site RT RADIAL Blood Gas Patient Temperature 98.6 Blood Gas HCO3 25 mmol/L Blood Gas Base Excess -0.6 mmol/L Blood Gas Oxygen Saturation 96 % Arterial Blood pH 7.29 Arterial Blood Partial Pressure CO2 53 mmHg Arterial Blood Partial Pressure O2 106 mmHG Arterial Blood Oxygen Content 13.6 Vol % Arterial Blood Carboxyhemoglobin 1.3 % Arterial Blood Methemoglobin 0.4 % Blood Gas Hemoglobin 9.9 G/DL Oxygen Delivery Device MASK Blood Gas Liter Flow 7 L/M Blood Gas Inspired Oxygen 100 % Urine Color YELLOW Urine Turbidity CLEAR Urine pH 5.5 Urine Specific Mobile 1.013 Urine Protein TRACE mg/dL Urine Glucose (UA) NEG mg/dL Urine Ketones NEG mg/dL Urine Occult Blood NEG Urine Nitrite NEG Urine Bilirubin NEG Urine Urobilinogen LESS THAN 2.0 MG/DL Urine Leukocyte Esterase NEG Urine RBC LESS THAN 1 /hpf Urine WBC 1 /hpf Microscopic Urinalysis Comment CATH-CULT NOT IND MDM Medical Decision Making Medical Screen Exam Complete: Yes Emergency Medical Condition: Yes Medical Record Reviewed: Yes Interpretation(s) ECG shows sinus tachycardia at 123, no ST elevation, large artifact. Differential Diagnosis Sepsis versus pneumonia versus UTI versus intracranial abnormality Narrative Course Patient is a 66-year-old male with history of laryngeal carcinoma, who comes in due to altered mental status. Patient is tachycardic on exam. There is a large amount of sputum coming from his trach. IV established, labs sent. Labs show no elevation in white blood cell count 14. Patient given IV fluids. Given cefepime and vancomycin. Chest x-ray shows no acute abnormalities. Patient admitted for further management. Sputum culture sent. Diagnosis Primary Impression: Sepsis Qualified Codes: A41.9 - Sepsis, unspecified organism Admitting Information Admitting Physician Requests: Admit Condition: Stable Matilda Jacobson MD Jun 16, 2017 16:20
[2017-06-16] MEDS ORDERED: DEXTROSE 50% IN WATER 50 ML VIAL(D50) IV PUSH PRN (16:30)
[2017-06-16] MEDS ORDERED: GLUCAGON 1 MG/ML VIAL OTHER PRN (16:30)
[2017-06-16] MEDS ORDERED: MAGNESIUM HYDROXIDE SUSP 30 ML CUP PO PRN (16:45)
[2017-06-16] MEDS ORDERED: POLYETHYLENE GLYCOL 17 GM PKG G-TUBE PRN (16:45)
[2017-06-16] MEDS ORDERED: PROCHLORPERAZINE 25 MG SUPP RECTAL PRN (16:45)
[2017-06-16] MEDS ORDERED: RESP: ALBUTEROL 2.5 MG/IPRATROPIUM 0.5 MG NEB (PRN) INH (16:45)
[2017-06-16] MEDS ORDERED: MORPHINE SULFATE 4 MG/ML INJ IV PUSH PRN ×4 (16:45)
[2017-06-16] MEDS ORDERED: LIDOCAINE 2% JELLY 30 ML TUBE TOPICAL SCH (16:45)
[2017-06-16] MEDS ORDERED: Vancomycin Consult Pharmacy 1 EA OTHER SCH (16:45)
[2017-06-16] MEDS ORDERED: NALOXONE HCL 0.4 MG/ML AMP IV PUSH PRN (16:45)
[2017-06-16] MEDS ORDERED: ONDANSETRON HCL 4 MG/5 ML UDC G-TUBE PRN (16:45)
[2017-06-16] MEDS ORDERED: guaiFENesin/CODEINE SYRUP 200 MG/20 MG/10 ML CUP PO PRN (16:45)
[2017-06-16] MEDS ORDERED: oxyCODONE/ACETAMINOPHEN 5 MG/325 MG TAB PO PRN (16:45)
[2017-06-16] MEDS ORDERED: LACTULOSE SYRUP 20 GM/30 ML CUP PO PRN (16:45)
[2017-06-16] MEDS ORDERED: SENNOSIDES 8.6 MG TAB PO PRN (16:45)
[2017-06-16] MEDS ORDERED: BISACODYL 10 MG SUPP RECTAL PRN (16:45)
[2017-06-16] MEDS ORDERED: ACETAMINOPHEN 325 MG TAB PO PRN (16:45)
[2017-06-16] MEDS ORDERED: SODIUM CHLORIDE 0.9% FLUSH 10 ML FLUSH IV FLUSH PRN ×2 (16:45)
--- NOTE | 2017-06-16 16:59 | HHI.HP ---
[facility] Juliane Briggs MD Admission Diagnosis Sepsis Diagnoses: (1) Tracheostomy dependent Diagnosis: Principal (2) Laryngeal cancer (3) Chronic respiratory failure Diagnosis: Principal (4) Acute respiratory failure (5) Aspiration pneumonia Diagnosis: Secondary (6) Acute respiratory failure with hypoxemia Diagnosis: Principal (7) SIRS due to infectious process without acute organ dysfunction Diagnosis: Secondary (8) Shortness of breath Diagnosis: Secondary (9) Failure to thrive in adult Diagnosis: Secondary (10) COPD (chronic obstructive pulmonary disease) Diagnosis: Secondary (11) Sepsis Diagnosis: Principal (12) Confusion Diagnosis: Secondary (13) Weakness Diagnosis: Secondary Travel History International Travel<30 Days: No Contact w/Intl Traveler <30 Da: No Traveled to Known Affected Are: No Sepsis Criteria SIRS Criteria (2 or more): RR > 20 or PaCO2 < 32 Multiple Organ Dysfunction Syn: Evidence -2 organs failing Criteria Outcome: Meets SIRS criteria History of Present Illness Patient is a 66-year-old male with history of laryngeal cancer stage IV, tracheostomy, history of chronic blood clots on Eliquis, coronary artery disease , CABG, COPD, GERD, hypertension, hyperlipidemia, peripheral vascular occlusive disease, diabetes mellitus, chronic pain who presents with acute onset of altered mental status. Per , he was fine until early this morning. This is when he stopped responding to her. Family says last time he was sick, he had MRSA in his sputum. states that she was having to change out his trach multiple times overnight because WAS getting CLOGGED with blood and sputum. Per , he did walk himself to the bathroom early this morning before she noticed the acute change. There is no falls. Patient is unable to provide any history. Last week patient underwent chemotherapy with KEYTRUDA PER DR RIVERA. Patient normally sees Dr. SALAZAR as well as Dr. RIVERA OF ONCOLOGY. Review of Systems ROS Limitations: Altered Mental Status, Unresponsive Except as stated in HPI: all other systems reviewed are Neg Past Family Social History Past Medical History laryngeal cancer stage IV blood clots on Eliquis CAD s/p CABG and stents COPD GERD HTN HLD PVD DM chronic pain Polycystic kidney disease Past Surgical History Tracheostomy, two months ago Port placement PEG tube, two years ago CABG 2 vessels and multiple cardiac stents (6total) Peripheral vascular stents Cholecystectomy Reported Medications Reported Meds & Active Scripts Active Oxygen (O2) Device 2 Liter MARGO.CANULA CONTINUOUS Oxygen Concentrator Portable Gaseous 2 L/min via Nasal Canula Continuous For 99 months Eliquis (Apixaban) 5 Mg Tab 5 Mg PO BID Xanax (Alprazolam) 0.25 Mg Tab 0.25 Mg PO Q8H PRN Prevacid Solutab ODT (Lansoprazole) 30 Mg Tab 30 Mg NG DAILY Hydrocodone-Acetaminophen 7.5-325 mg Tab 1 Tab PO Q4H PRN Quetiapine (Quetiapine Fumarate) 25 Mg Tab 12.5 Mg PO BID Levsin (Hyoscyamine Sulfate) 0.125 Mg Tab 0.125 Mg G-TUBE BID Duoneb (Ipratropium-Albuterol Neb) 0.5-2.5 Mg/3 Ml Neb 1 Nebule INH Q4HR NEB PRN Claritin Liq (Loratadine) 5 Mg/5 Ml Liq 10 Mg G-TUBE DAILY 30 Days Zofran Liq (Ondansetron HCl) 4 Mg/5 Ml Soln 4 Mg G-TUBE Q4HR PRN Miralax Powder (Polyethylene Glycol 3350 Powder) 17 Gm Powd 17 Gm G-TUBE DAILY PRN Mix and dissolve one measuring cap-ful (17 grams) in water or juice. Reported Metoprolol Tartrate 25 Mg Tab 12.5 Mg PEG BID Keytruda Inj (Pembrolizumab) 50 Mg Inj Cilostazol 50 Mg Tab 50 Mg PO BID Fentanyl Patch 72 HR (Fentanyl) 25 Mcg/Hr Patch 25 Mcg T-DERMAL Q72H Promethazine (Promethazine HCl) 12.5 Mg Tab 25 Mg PO Q6H PRN Pantoprazole (Pantoprazole Sodium) 40 Mg Tab 40 Mg PO DAILY Omeprazole 40 Mg Cap 40 Mg PO DAILY Nitroglycerin SL (Nitroglycerin) 0.4 Mg Subl 0.4 Mg SL DIRECTED PRN ONE TABLET UNDER THE TONGUE NEEDED FOR CHEST PAIN, MAY REPEAT EVERY FIVE MINUTES FOR A TOTAL OF 3 DOSES OR CALL 911 IF NO RELIEF Lidocaine Topical (Lidocaine HCl) 2 % Jel 1 Applic TOPICAL DAILY Citalopram (Citalopram Hydrobromide) 20 Mg Tab 20 Mg PO DAILY Allergies: Coded Allergies: amlodipine (Unverified Allergy, Severe, 06/16/17) atorvastatin (Unverified Allergy, Severe, 06/16/17) niacin (Unverified Allergy, Severe, 06/16/17) CAUSES HIM TO FEEL HOT pravastatin (Unverified Allergy, Severe, 06/16/17) simvastatin (Unverified Allergy, Severe, 06/16/17) fish oil (Unverified Allergy, Intermediate, Diarrhea, 06/16/17) Active Ordered Medications Current Medications IV Flush (NS Flush) 2 ml UNSCH PRN IV FLUSH FLUSH AFTER USING IV ACCESS; Start 06/16/17 at 12:30 Sodium Chloride 1,000 ml @ 1,000 mls/hr Q1H IV Last administered on t 12:34; Start 06/16/17 at 12:20; Stop 06/16/17 at 13:19; Status DC Cefepime HCl 1000 mg/Sodium Chloride 100 ml @ 200 mls/hr ONCE ONCE IV Last administered on 06/16/17t 13:40; Start 06/16/17 at 13:15; Stop 06/16/17 at 13 :44; Status DC Vancomycin HCl 1050 mg/Sodium Chloride 260.5 ml @ 250 mls/hr Q12H IV Last administered on 06/16/17t 14:33; Start 06/16/17 at 13:45 Dextrose (D50w (Vial) Inj) 50 ml UNSCH PRN IV PUSH HYPOGLYCEMIA-SEE COMMENTS; Start 06/16/17 at 16:30; Status UNV Glucagon (Glucagon Inj) 1 mg UNSCH PRN OTHER HYPOGLYCEMIA-SEE COMMENTS; Start 06/16/17 at 16:30; Status UNV Insulin Aspart (NovoLOG SUPPLEMENTAL SCALE) 1 ACHS SLIDING SCALE SQ ; Start at 17:00; Status UNV Alprazolam (Xanax) 0.25 mg Q8H PRN PO ANXIETY; Start 06/16/17 at 16:45; Status UNV Apixaban (Eliquis) 5 mg BID PO ; Start 06/16/17 at 21:00; Status UNV Cilostazol (Pletal) 50 mg BID PO ; Start 06/16/17 at 21:00; Status UNV Citalopram Hydrobromide (CeleXA) 20 mg DAILY PO ; Start 06/17/17 at 09:00; Status UNV Fentanyl (Duragesic 25 Mcg Patch.72 Hr) 1 patch Q72H T-DERMAL ; Start at 16:45; Status UNV Acetaminophen/ Hydrocodone Bitart ([place] 7.5-325 Mg) 1 tab Q4H PRN PO PAIN SCALE 1 TO 10; Start 06/16/17 at 16:45; Status UNV Albuterol/ Ipratropium (Duoneb Neb) 1 ampule Q4HR NEB PRN INH SHORTNESS OF BREATH; Start 06/16/17 at 16:45; Status UNV Lansoprazole (Prevacid Odt) 30 mg DAILY NG ; Start 06/16/17 at 16:45; Status UNV Lidocaine HCl (Xylocaine 2% Jelly) 1 applic DAILY TOPICAL ; Start 06/16/17 at 16:45; Status UNV Metoprolol Tartrate (Lopressor) 12.5 mg BID PEG ; Start 06/16/17 at 21:00; Status UNV Ondansetron HCl (Zofran Liq) 4 mg Q4HR PRN G-TUBE NAUSEA OR VOMITING; Start 06/16/17 at 16:45; Status UNV Polyethylene Glycol (Miralax) 17 gm DAILY PRN G-TUBE CONSTIPATION; Start 06/16 at 16:45; Status UNV Quetiapine Fumarate (SEROquel) 12.5 mg BID PO ; Start 06/16/17 at 21:00; Status UNV Non-Formulary Medication 10 mg DAILY G-TUBE ; Start 06/16/17 at 16:45; Status UNV Hyoscyamine Sulfate (Levsin) 0.125 mg BID G-TUBE ; Start 06/16/17 at 21:00; Status UNV Family History Family history significant for stroke, hypertension, diabetes, and polycystic kidney disease Denies any family history of cancer Social History Prior tobacco use age [age], 3PPD, quit in 2006 Denies any alcohol or illicit drug use Physical Exam Vital Signs Vital Signs Date Time Temp Pulse Resp B/P (MAP) Pulse Ox O2 Delivery O2 Flow Rate FiO2 06/16/17 13:45 126 24 110/55 (73) 100 Trach Collar 100 10/16/17 12:08 89 Trach Collar 6.00 100 06/16/17 12:04 Trach Collar 100 06/16/17 12:04 97.9 123 33 129/58 (81) 97 Trach Collar 100 Physical Exam GENERAL: This is a cachectic appearing chronically ill patient in moderate distress SKIN: No rashes, ecchymoses or lesions. Warm and dry HEAD: Atraumatic. Normocephalic. No temporal or scalp tenderness. EYES: Pupils equal round and reactive. Extraocular motions intact. No scleral icterus. No injection or drainage. ENT: Nose without bleeding, purulent drainage or septal hematoma. . Airway patent. Oral mucosa is somewhat moist NECK: Trachea midline. No JVD or lymphadenopathy. Supple, nontender, no meningeal signs. Has a tracheostomy in place with grayish brownish drainage CARDIOVASCULAR: Regular rate and rhythm without murmurs, gallops, or rubs. S1 and S2 no S3 or S4 tachycardia RESPIRATORY: Coarse breath sounds with rhonchi is bilaterally. Breath sounds equal bilaterally. No wheezes, rales, GASTROINTESTINAL: Abdomen soft, non-tender, nondistended. No hepato-splenomegaly , or palpable masses. No guarding. PEG tube in place MUSCULOSKELETAL: Extremities without clubbing, cyanosis, or edema. No joint tenderness, effusion, or edema noted. No calf tenderness. Negative Homans sign bilaterally. NEUROLOGICAL: Awake and alert but altered remains nonverbal. Not able to assess Cranial nerves II through XII intact. Motor and sensory grossly within normal limits.4 out of 5 muscle strength in all muscle groups. Not able to assess speech due to tracheostomy. Not able to assess insight or judgment His mood and behavior is lethargic Laboratory Laboratory Tests Test 06/16/17 12:25 06/16/17 13:40 06/16/17 13:50 06/16/17 15:28 White Blood Count 14.7 Red Blood Count 3.87 Hemoglobin 10.5 Hematocrit 33.2 Mean Corpuscular Volume 85.8 Mean Corpuscular Hemoglobin 27.2 Mean Corpuscular Hemoglobin Concent 31.7 Red Cell Distribution Width 16.5 Platelet Count 404 Mean Platelet Volume 8.3 Neutrophils (%) (Auto) 92.1 Lymphocytes (%) (Auto) 1.8 Monocytes (%) (Auto) 5.9 Eosinophils (%) (Auto) 0.0 Basophils (%) (Auto) 0.2 Neutrophils # (Auto) 13.5 Lymphocytes # (Auto) 0.3 Monocytes # (Auto) 0.9 Eosinophils # (Auto) 0.0 Basophils # (Auto) 0.0 CBC Comment DIFF FINAL Differential Comment Prothrombin Time 12.3 Prothromb Time International Ratio 1.1 Activated Partial Thromboplast Time 33.3 Blood Urea Nitrogen 23 Creatinine 1.75 Random Glucose 186 Total Protein 6.7 Albumin 2.2 Calcium Level 9.3 Alkaline Phosphatase 114 Aspartate Amino Transf (AST/SGOT) 16 Alanine Aminotransferase (ALT/SGPT) 13 Total Bilirubin 0.3 Sodium Level 126 Potassium Level 5.1 Chloride Level 89 Carbon Dioxide Level 26.5 Anion Gap 11 Estimat Glomerular Filtration Rate 39 Lactic Acid Level 3.4 1.4 Total Creatine Kinase 32 Troponin I LESS THAN 0.02 Blood Gas Puncture Site RT RADIAL Blood Gas Patient Temperature 98.6 Blood Gas HCO3 25 Blood Gas Base Excess -0.6 Blood Gas Oxygen Saturation 96 Arterial Blood pH 7.29 Arterial Blood Partial Pressure CO2 53 Arterial Blood Partial Pressure O2 106 Arterial Blood Oxygen Content 13.6 Arterial Blood Carboxyhemoglobin 1.3 Arterial Blood Methemoglobin 0.4 Blood Gas Hemoglobin 9.9 Oxygen Delivery Device MASK Blood Gas Liter Flow 7 Blood Gas Inspired Oxygen 100 Urine Color YELLOW Urine Turbidity CLEAR Urine pH 5.5 Urine Specific Pearl 1.013 Urine Protein TRACE Urine Glucose (UA) NEG Urine Ketones NEG Urine Occult Blood NEG Urine Nitrite NEG Urine Bilirubin NEG Urine Urobilinogen LESS THAN 2.0 Urine Leukocyte Esterase NEG Urine RBC LESS THAN 1 Urine WBC 1 Microscopic Urinalysis Comment CATH-CULT NOT IND Date/Time Source Procedure Growth Status 06/16/17 12:25 Blood Peripheral Aerobic Blood Culture Pending Received 06/16/17 12:25 Blood Peripheral Anaerobic Blood Culture Pending Received 06/16/17 14:22 Sputum Endotracheal Gram Stain Pending Received 06/16/17 14:22 Sputum Endotracheal Sputum Culture Pending Received Result Diagram: 06/16/17 1225 06/16/17 1225 Imaging Last Impressions Head CT 06/16/17 1220 Signed Impressions: Service Date/Time: Friday, June 16, 2017 12:42 - CONCLUSION: 1. Cortical atrophy. 2. 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 3. No acute intracranial abnormality identified. Dion Coto MD Chest X-Ray 06/16/17 1220 Signed Impressions: Service Date/Time: Friday, June 16, 2017 12:32 - CONCLUSION: 1. Chronic interstitial changes. 2. The exam is significantly improved when compared to prior. 3. Support equipment in good position. MD Alfonso Márquez VTE Risk Assessment Alfonso VTE Risk Assessment: Mod/High Risk (score >= 2) Caprini Risk Assessment Model Point Value = 1 Point Value = 2 Point Value = 3 Point Value = 5 Age 41-60 Minor surgery BMI > 25 kg/m2 Swollen legs Varicose veins or History of unexplained or recurrent spontaneous Oral contraceptives or hormone replacement Sepsis (< 1 month) Serious lung disease, including pneumonia (< 1 month) Abnormal pulmonary function Acute myocardial infarction Congestive heart failure (< 1 month) History of inflammatory bowel disease Medical patient at bed rest Age 61-74 Arthroscopic surgery Major open surgery (> 45 min) Laparoscopic surgery (> 45 min) Malignancy Confined to bed (> 72 hours) Immobilizing plaster cast Central venous access Age >= 75 History of VTE Family history of VTE Factor V Leiden Prothrombin [id number] Lupus anticoagulant Anticardiolipin antibodies Elevated serum homocysteine Heparin-induced thrombocytopenia Other congenital or acquired thrombophilia Stroke (< 1 month) Elective arthroplasty Hip, pelvis, or leg fracture Acute spinal cord injury (< 1 month) Prophylaxis Regimen Total Risk Factor Score Risk Level Prophylaxis Regimen 0-1 Low Early ambulation 2 Moderate Order ONE of the following: *Sequential Compression Device (SCD) *Heparin 5000 units SQ BID 3-4 Higher Order ONE of the following medications: *Heparin 5000 units SQ TID *Enoxaparin/Lovenox 40 mg SQ daily (WT < 150 kg, CrCl > 30 mL/min) *Enoxaparin/Lovenox 30 mg SQ daily (WT < 150 kg, CrCl > 10-29 mL/min) *Enoxaparin/Lovenox 30 mg SQ BID (WT < 150 kg, CrCl > 30 mL/min) AND/OR *Sequential Compression Device (SCD) 5 or more Highest Order ONE of the following medications: *Heparin 5000 units SQ TID (Preferred with Epidurals) *Enoxaparin/Lovenox 40 mg SQ daily (WT < 150 kg, CrCl > 30 mL/min) *Enoxaparin/Lovenox 30 mg SQ daily (WT < 150 kg, CrCl > 10-29 mL/min) *Enoxaparin/Lovenox 30 mg SQ BID (WT < 150 kg, CrCl > 30 mL/min) AND *Sequential Compression Device (SCD) Assessment and Plan Assessment and Plan Respiratory failure with worsening respiratory status. Continue on antibiotics with duo nebs vancomycin and cefepime continue on guaifenesin continue on oxygen consult pulmonary medicine Worsening pulmonary status will give aggressive pulmonary toilet continue on steroids Altered mental status suspect secondary to infection Laryngeal cancer status post tracheostomy follows with Dr. Josie LUNSFORD last week Chronic DVT continue on Eliquis Dysphagia continue on tube feeds Polycystic kidney disease with chronic creatinine continue on fluids Worsening pulmonary status possible sepsis Tachycardia continue on his beta jessica Diabetes mellitus continue on sliding scale with Accu-Cheks before meals and at bedtime GERD continue on PPI Peripheral vascular occlusive disease continue on his chronic anticoagulation Chronic pain continue on pain control have IV pain medications available Prognosis is quite guarded. Family even discussed the possibility of going to hospice inpatient but is not ready for this at this time yet Daughter and POA who is another daughter who was in attendance over her phone and at bedside Discussed with them Code Status Full code at this time Discussed Condition With Emergency room physician nurse patient's family and patient is not able to participate due to his altered mental status Physician Certification 2 Midnight Certification Type: Admission for Inpatient Services Order for Inpatient Services The services are ordered in accordance with Medicare regulations or non- Medicare payer requirements, as applicable. In the case of services not specified as inpatient-only, they are appropriately provided as inpatient services in accordance with the 2-midnight benchmark. Estimated LOS (days): 5 5 days is the estimated time the patient will need to remain in the hospital, assuming treatment plan goals are met and no additional complications. Post-Hospital Plan: Not yet determined Bobby Matamoros DO Jun 16, 2017 16:59
[2017-06-16] MEDS: INSULIN ASPART SUPPLEMENTAL SCALE SQ SCH ×2 (17:00→21:00)
[2017-06-16] MEDS ORDERED: PILL SPLITTER OTHER PRN (18:00)
[2017-06-16 18:15] VITALS: BP 115/58; PULSE 119; RESP 20; TEMP 98; O2SAT 100
[2017-06-16 18:38] VITALS: O2SAT 100
[2017-06-16] MEDS: methylPREDNISolone SOD SUCC 40 MG/1 ML VIAL IV PUSH SCH (18:44)
[2017-06-16] MEDS: SODIUM CHLOR 0.9% 1000 ML INJ 1,000 ML IV SCH (18:46)
[2017-06-16] MEDS: fentaNYL 25 MCG/HR PATCH T-DERMAL SCH (18:46)
[2017-06-16] MEDS: LANSOPRAZOLE SOLUTAB 30 MG TAB NG SCH (18:51)
[2017-06-16] MEDS: LORATADINE 10 MG TAB G-TUBE SCH (18:52)
[2017-06-16 20:00] VITALS: BP 124/61; PULSE 102; PULSE 98; RESP 20; TEMP 98.3; O2SAT 98
[2017-06-16] MEDS ORDERED: CILOSTAZOL 50 MG TAB PO SCH (21:00)
[2017-06-16] MEDS ORDERED: SODIUM CHLORIDE 0.9% FLUSH 10 ML FLUSH IV FLUSH SCH (21:00)
[2017-06-16] MEDS: APIXABAN 5 MG TABLET PO SCH (22:37)
[2017-06-16] MEDS: QUEtiapine FUMARATE 25 MG TAB PO SCH (22:37)
[2017-06-16] MEDS: DOCUSATE SODIUM 50 MG/SENNA 8.6 MG TAB PO SCH (22:38)
[2017-06-16] MEDS: SODIUM CHLORIDE 0.9% FLUSH 10 ML FLUSH IV FLUSH SCH (22:38)
[2017-06-16] MEDS: METOPROLOL TARTRATE 25 MG TAB PEG SCH (22:38)
[2017-06-16] MEDS: HYOSCYAMINE 0.125 MG TAB G-TUBE SCH (22:38)
[2017-06-16] MEDS ORDERED: LOPE-1 PO (23:54)
[2017-06-17] VITALS (9 sets, daily range): BP systolic 108–134; BP diastolic 54–59; PULSE 76–92; RESP 18–20; TEMP 97.1–97.9; O2SAT 96–100
[2017-06-17] MEDS: methylPREDNISolone SOD SUCC 40 MG/1 ML VIAL IV PUSH SCH ×3 (01:25→18:37)
[2017-06-17] MEDS: CEFEPIME INJ 2,000 MG in SODIUM CHLORIDE 0.9% INJ 100 ML IV SCH ×2 (01:25→15:20)
[2017-06-17] MEDS: SODIUM CHLOR 0.9% 1000 ML INJ 1,000 ML IV SCH (01:26)
[2017-06-17 03:26] LABS: AUTOMATED NEUTROPHIL # 9.6 TH/MM3 (1.8-7.7); BASOPHIL % 0.1 % (0.0-2.0); HEMATOCRIT 28.6 % (39.0-51.0); HEMO FLAGS DIFF FINAL; LYMPH % 3.7 % (9.0-44.0); LYMPHOCYTE # 0.4 TH/MM3 (1.0-4.8); MEAN CELL VOLUME 84.8 FL (80.0-100.0); MEAN CORPUSCULAR HEMOGLOBIN 27.3 PG (27.0-34.0); MEAN CORPUSCULAR HGB CONC 32.1 % (32.0-36.0); MONO % 2.7 % (0.0-8.0); NEUT % 93.5 % (16.0-70.0); PLATELET COUNT 280 TH/MM3 (150-450); RED BLOOD COUNT 3.38 MIL/MM3 (4.50-5.90); RED CELL DISTRIBUTION WIDTH 16.3 % (11.6-17.2); WHITE BLOOD COUNT 10.2 TH/MM3 (4.0-11.0)
[2017-06-17 04:00] LABS: ALKALINE PHOSPHATASE 96 U/L (45-117); ALT (GPT) 13 U/L (12-78); ANION GAP 7 MEQ/L (5-15); AST (GOT) 26 U/L (15-37); BICARBONATE 25.9 MEQ/L (21.0-32.0); BLOOD UREA NITROGEN 27 MG/DL (7-18); CHLORIDE 98 MEQ/L (98-107); CREATINE KINASE 194 U/L (39-308); FREE T4 1.15 NG/DL (0.76-1.46); GLOMERULAR FILTRATION RATE 40 ML/MIN (>89); MAGNESIUM 2.1 MG/DL (1.5-2.5); POTASSIUM 5.3 MEQ/L (3.5-5.1); SODIUM (NA) 131 MEQ/L (136-145); TOTAL BILIRUBIN ADULT 0.4 MG/DL (0.2-1.0)
--- NOTE | 2017-06-17 04:27 | RADRPT ---
EXAM DATE/TIME: 06/17/2017 04:31 [facility] COMPARISON: CHEST SINGLE AP, June 16, 2017, 12:32. INDICATIONS : Short of breath. MEDICAL HISTORY : Congestive heart failure. Chronic obstructive pulmonary disease. SURGICAL HISTORY : CABG. Coronary artery stent. tracheostomy, Peg tube. ENCOUNTER: Subsequent ACUITY: 2 days PAIN SCORE: Non-responsive. LOCATION: Bilateral chest FINDINGS: The cardiac silhouette is normal in transverse diameter. Median sternotomy wires are present. A trach eostomy tube is in place in the midline. Nygpea-l-Wgdi is in place via right subclavian approach with its tip in the superior vena cava. CONCLUSION: 1. No acute cardiopulmonary disease. Chivo Bates MD on June 17, 2017 at 4:25 Board Certified Radiologist. This report was verified electronically.
--- NOTE | 2017-06-17 08:12 | MB ---
cc: LORNE BEST MD DATE OF CONSULTATION 06/17/2017 INDICATION Elevated troponin. HISTORY OF PRESENT ILLNESS This is a 66-year-old gentleman with a history of laryngeal cancer, stage IV, prior tracheostomy, also has severe peripheral arterial disease, known coronary disease, bypass surgery. He presented to the emergency department with acute mental status change. He has had several hospitalizations this year both in September in addition to March secondary to respiratory distress, aspiration pneumonia and sepsis. Apparently, per his on the day of his presentation, he had stopped responding to her. Although he opens his eyes, he is not alert or oriented. All records were obtained from the chart. He has had multiple trache changes secondary to both blood and sputum. When he arrived, troponin was negative and since serial troponins were drawn, now they are mildly elevated. Initially he had undergone chemotherapy. He is followed by pulmonology. I last saw him about two years ago when he presented with a left fem-pop bypass thrombosis and did thrombectomy and stenting of the left fem-pop. He has also been seen by Dr. Gómez of vascular surgery for carotid stenosis and managed conservatively. He currently appears comfortable lying in bed with a trache. PAST MEDICAL HISTORY 1. Laryngeal cancer, stage IV 2. Peripheral arterial disease with left fem-pop bypass thrombosis and percutaneous intervention 3. Coronary artery disease with bypass surgery with percutaneous intervention and preserved ejection fraction 4. COPD 5. Hypertension 6. Hyperlipidemia 7. Gastroesophageal reflux disease 8. Diabetes 9. Polycystic kidney disease PAST SURGICAL HISTORY 1. Tracheostomy 2. Port placement 3. PEG tube 4. Bypass 5. Peripheral vascular bypass and stenting 6. Cholecystectomy MEDICATIONS Reported medications: 1. Metoprolol 2. Cilostazol 3. Fentanyl 4. Promethazine 5. Protonix 6. Omeprazole 7. Lidocaine 8. Citalopram ALLERGIES AMLODIPINE, ATORVASTATIN, NYSTAT, NIACIN, PRAVASTATIN, SIMVASTATIN, FISH OIL. REVIEW OF SYSTEMS unable to be obtained. PHYSICAL EXAMINATION Appears comfortable in no distress. VITAL SIGNS: Temperature is 97.9, heart rate 82, blood pressure 160/55 mmHg. GENERAL: Responds to verbal stimuli. Opens eyes. NECK: Jugular veins difficult to appreciate due to trache in place and connected. LUNGS: Clear to auscultation bilaterally. CARDIOVASCULAR: Regular rate and rhythm. No murmurs, rubs or gallops. ABDOMEN: Nontender, nondistended. Good bowel sounds. No hepatosplenomegaly. EXTREMITIES: Show no clubbing, cyanosis or edema. Decreased pulses, but warm. NEUROLOGIC: Appears to be grossly intact. LABORATORY DATA WBC 10.2 hemoglobin 9.2, platelet count 280, INR is 1.1. Sodium is 131, potassium 5.3, BUN is 27, creatinine is 1.72, troponin 0.8. Electrocardiogram sinus tachycardia, nonspecific T-wave inversions and flattening in the anterolateral and inferior leads. ASSESSMENT 1. Elevated troponin 2. Chronic renal insufficiency 3. History of coronary disease. 4. Peripheral arterial disease. 5. Laryngeal cancer status post PEG tube and trache 6. History of MRSA sepsis. 7. History of aspiration pneumonia. PLAN EKG does not show any acute change. The patient appears to be relatively comfortable now. The last echocardiogram done this summer shows a preserved ejection fraction with mild valvular heart disease. Given his multiple comorbidities, diagnosis of laryngeal cancer and recent decompensation over the courses of this past year, he is not a candidate for any potential invasive strategy. His mildly elevated troponin is likely demand mediated. I do not see much utility in proceeding with a noninvasive imaging such as a stress test since we would not proceed with a cardiac catheterization. I would recommend continued conservative management from a cardiovascular perspective with beta jessica and possibly long-acting nitrate therapy. Maintain a hemoglobin greater than eight. There has been some discussions about positive pallor to care hospice. Hospitalist to address with family. His point, we do not have much to add from a cardiovascular perspective. He has a prior history of thrombosis of his fem-pop bypass and if possible, would recommend to go ahead and continue his anticoagulation for risk of recurrent thrombosis if the bleeding is not an issue. I am available for any questions. At this point, I will sign off. Please call if she had any further issues. MD AMNA Rachel/AMINATA /7:44 AM /7:55 AM
[2017-06-17] MEDS: INSULIN ASPART SUPPLEMENTAL SCALE SQ SCH ×4 (08:30→21:00)
[2017-06-17] MEDS: DOCUSATE SODIUM 50 MG/SENNA 8.6 MG TAB PO SCH ×2 (09:15→19:59)
[2017-06-17] MEDS: APIXABAN 5 MG TABLET PO SCH ×2 (09:15→19:59)
[2017-06-17] MEDS: HYOSCYAMINE 0.125 MG TAB G-TUBE SCH ×2 (09:15→19:58)
[2017-06-17] MEDS: LORATADINE 10 MG TAB G-TUBE SCH (09:15)
[2017-06-17] MEDS: CITALOPRAM HYDROBROMIDE 20 MG TAB PO SCH (09:15)
[2017-06-17] MEDS: LANSOPRAZOLE SOLUTAB 30 MG TAB NG SCH (09:16)
[2017-06-17] MEDS: METOPROLOL TARTRATE 25 MG TAB PEG SCH ×2 (09:16→21:45)
[2017-06-17] MEDS: QUEtiapine FUMARATE 25 MG TAB PO SCH ×2 (09:18→20:00)
[2017-06-17] MEDS ORDERED: VANCOMYCIN INJ 1,250 MG in SODIUM CHLOR 0.9% 250 ML INJ 250 ML IV SCH (12:00)
[2017-06-17] MEDS: SODIUM CHLORIDE 0.9% FLUSH 10 ML FLUSH IV FLUSH SCH ×2 (13:22→18:38)
--- NOTE | 2017-06-17 14:59 | HHI.PR ---
Subjective Remarks Patient is a 66-year-old male with history of laryngeal cancer stage IV, tracheostomy, history of chronic blood clots on Eliquis, coronary artery disease , CABG, COPD, GERD, hypertension, hyperlipidemia, peripheral vascular occlusive disease, diabetes mellitus, chronic pain who presents with acute onset of altered mental status. Per , he was fine until early this morning. This is when he stopped responding to her. Family says last time he was sick, he had MRSA in his sputum. states that she was having to change out his trach multiple times overnight because WAS getting CLOGGED with blood and sputum. Per , he did walk himself to the bathroom early this morning before she noticed the acute change. There is no falls. Patient is unable to provide any history. Last week patient underwent chemotherapy with KEYTRUDA PER DR RIVERA. Patient normally sees Dr. SALAZAR as well as Dr. RIVERA OF ONCOLOGY. 06-17 SEEN BY CARDIOLOGY NOT SEEN BY PULMONARY YET IMPROVED FROM YESTERDAY MORE ALERT WILL GET PALLIATIVE CARE INVOLVED POA WILL BE IN FROM [place] TOMORROW 06-18 CONTINUE CURRENT TREATMENTS DW RN AND PT AND FULL CODE MORE ALERT Objective Vitals Vital Signs Date Time Temp Pulse Resp B/P (MAP) Pulse Ox O2 Delivery O2 Flow Rate FiO2 06/17/17 12:00 97.1 76 20 121/58 (79) 96 06/17/17 09:00 Trach Collar 5.00 100 06/17/17 08:13 81 06/17/17 08:00 97.3 89 20 119/57 (77) 97 06/17/17 04:00 97.9 82 20 116/55 (75) 100 06/17/17 00:00 97.9 92 18 108/54 (72) 97 06/16/17 20:00 T-Piece 8.00 50 06/16/17 20:00 98 06/16/17 20:00 98.3 102 20 124/61 (82) 98 06/16/17 18:45 T-Piece 6.00 50 06/16/17 18:38 100 T-piece 6.00 50 06/16/17 18:24 06/16/17 18:15 98.0 119 20 115/58 (77) 100 I/O 06/16/17 06/16/17 06/16/17 06/17/17 06/17/1706/17/17 07:00 15:00 23:00 07:00 15:00 23:00 Intake Total 0 ml 250 ml Output Total 1000 ml Balance -1000 ml 250 ml Intake Oral 0 ml IV Total 250 ml Output Urine Total 1000 ml # Voids 1 # Bowel Movements 1 0 Result Diagram: 06/17/17 0257 06/17/17 0257 Other Results Laboratory Tests Test 06/16/17 12:25 06/16/17 13:40 06/16/17 13:50 06/16/17 15:28 White Blood Count 14.7 TH/MM3 Red Blood Count 3.87 MIL/MM3 Hemoglobin 10.5 GM/DL Hematocrit 33.2 % Mean Corpuscular Volume 85.8 FL Mean Corpuscular Hemoglobin 27.2 PG Mean Corpuscular Hemoglobin Concent 31.7 % Red Cell Distribution Width 16.5 % Platelet Count 404 TH/MM3 Mean Platelet Volume 8.3 FL Neutrophils (%) (Auto) 92.1 % Lymphocytes (%) (Auto) 1.8 % Monocytes (%) (Auto) 5.9 % Eosinophils (%) (Auto) 0.0 % Basophils (%) (Auto) 0.2 % Neutrophils # (Auto) 13.5 TH/MM3 Lymphocytes # (Auto) 0.3 TH/MM3 Monocytes # (Auto) 0.9 TH/MM3 Eosinophils # (Auto) 0.0 TH/MM3 Basophils # (Auto) 0.0 TH/MM3 CBC Comment DIFF FINAL Differential Comment Prothrombin Time 12.3 SEC Prothromb Time International Ratio 1.1 RATIO Activated Partial Thromboplast Time 33.3 SEC Blood Urea Nitrogen 23 MG/DL Creatinine 1.75 MG/DL Random Glucose 186 MG/DL Total Protein 6.7 GM/DL Albumin 2.2 GM/DL Calcium Level 9.3 MG/DL Alkaline Phosphatase 114 U/L Aspartate Amino Transf (AST/SGOT) 16 U/L Alanine Aminotransferase (ALT/SGPT) 13 U/L Total Bilirubin 0.3 MG/DL Sodium Level 126 MEQ/L Potassium Level 5.1 MEQ/L Chloride Level 89 MEQ/L Carbon Dioxide Level 26.5 MEQ/L Anion Gap 11 MEQ/L Estimat Glomerular Filtration Rate 39 ML/MIN Lactic Acid Level 3.4 mmol/L 1.4 mmol/L Total Creatine Kinase 32 U/L Troponin I LESS THAN 0.02 NG/ML Blood Gas Puncture Site RT RADIAL Blood Gas Patient Temperature 98.6 Blood Gas HCO3 25 mmol/L Blood Gas Base Excess -0.6 mmol/L Blood Gas Oxygen Saturation 96 % Arterial Blood pH 7.29 Arterial Blood Partial Pressure CO2 53 mmHg Arterial Blood Partial Pressure O2 106 mmHG Arterial Blood Oxygen Content 13.6 Vol % Arterial Blood Carboxyhemoglobin 1.3 % Arterial Blood Methemoglobin 0.4 % Blood Gas Hemoglobin 9.9 G/DL Oxygen Delivery Device MASK Blood Gas Liter Flow 7 L/M Blood Gas Inspired Oxygen 100 % Urine Color YELLOW Urine Turbidity CLEAR Urine pH 5.5 Urine Specific [place] 1.013 Urine Protein TRACE mg/dL Urine Glucose (UA) NEG mg/dL Urine Ketones NEG mg/dL Urine Occult Blood NEG Urine Nitrite NEG Urine Bilirubin NEG Urine Urobilinogen LESS THAN 2.0 MG/DL Urine Leukocyte Esterase NEG Urine RBC LESS THAN 1 /hpf Urine WBC 1 /hpf Microscopic Urinalysis Comment CATH-CULT NOT IND Test 06/16/17 19:53 06/17/17 02:57 Total Creatine Kinase 137 U/L 194 U/L Troponin I 0.56 NG/ML 0.80 NG/ML White Blood Count 10.2 TH/MM3 Red Blood Count 3.38 MIL/MM3 Hemoglobin 9.2 GM/DL Hematocrit 28.6 % Mean Corpuscular Volume 84.8 FL Mean Corpuscular Hemoglobin 27.3 PG Mean Corpuscular Hemoglobin Concent 32.1 % Red Cell Distribution Width 16.3 % Platelet Count 280 TH/MM3 Mean Platelet Volume 7.9 FL Neutrophils (%) (Auto) 93.5 % Lymphocytes (%) (Auto) 3.7 % Monocytes (%) (Auto) 2.7 % Eosinophils (%) (Auto) 0.0 % Basophils (%) (Auto) 0.1 % Neutrophils # (Auto) 9.6 TH/MM3 Lymphocytes # (Auto) 0.4 TH/MM3 Monocytes # (Auto) 0.3 TH/MM3 Eosinophils # (Auto) 0.0 TH/MM3 Basophils # (Auto) 0.0 TH/MM3 CBC Comment DIFF FINAL Differential Comment Blood Urea Nitrogen 27 MG/DL Creatinine 1.72 MG/DL Random Glucose 125 MG/DL Total Protein 5.7 GM/DL Albumin 1.8 GM/DL Calcium Level 8.2 MG/DL Phosphorus Level 5.0 MG/DL Magnesium Level 2.1 MG/DL Alkaline Phosphatase 96 U/L Aspartate Amino Transf (AST/SGOT) 26 U/L Alanine Aminotransferase (ALT/SGPT) 13 U/L Total Bilirubin 0.4 MG/DL Sodium Level 131 MEQ/L Potassium Level 5.3 MEQ/L Chloride Level 98 MEQ/L Carbon Dioxide Level 25.9 MEQ/L Anion Gap 7 MEQ/L Estimat Glomerular Filtration Rate 40 ML/MIN Free Thyroxine 1.15 NG/DL Thyroid Stimulating Hormone 3rd Gen 0.640 uIU/ML Imaging Last Impressions Chest X-Ray 06/17/17 0600 Signed Impressions: Service Date/Time: Saturday, June 17, 2017 04:31 - CONCLUSION: 1. No acute cardiopulmonary disease. Chivo Bates MD Head CT 06/16/17 1220 Signed Impressions: Service Date/Time: Friday, June 16, 2017 12:42 - CONCLUSION: 1. Cortical atrophy. 2. 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 3. No acute intracranial abnormality identified. Dion Coto MD Objective Remarks GENERAL: This is a cachectic appearing chronically ill patient in NO distress SKIN: No rashes, ecchymoses or lesions. Warm and dry HEAD: Atraumatic. Normocephalic. No temporal or scalp tenderness. EYES: Pupils equal round and reactive. Extraocular motions intact. No scleral icterus. No injection or drainage. ENT: Nose without bleeding, purulent drainage or septal hematoma. . Airway patent. Oral mucosa is somewhat moist NECK: Trachea midline. No JVD or lymphadenopathy. Supple, nontender, no meningeal signs. Has a tracheostomy in place CARDIOVASCULAR: Regular rate and rhythm without murmurs, gallops, or rubs. S1 and S2 no S3 or S4 tachycardia RESPIRATORY: Coarse breath sounds with rhonchi is bilaterally. Breath sounds equal bilaterally. No wheezes, rales, GASTROINTESTINAL: Abdomen soft, non-tender, nondistended. No hepato-splenomegaly , or palpable masses. No guarding. PEG tube in place MUSCULOSKELETAL: Extremities without clubbing, cyanosis, or edema. No joint tenderness, effusion, or edema noted. No calf tenderness. Negative Homans sign bilaterally. NEUROLOGICAL: Awake and alert but altered remains nonverbal. Not able to assess Cranial nerves II through XII intact. Motor and sensory grossly within normal limits.4 out of 5 muscle strength in all muscle groups. Not able to assess speech due to tracheostomy. Not able to assess insight or judgment His mood and behavior is LESS lethargic Medications and IVs Current Medications IV Flush (NS Flush) 2 ml UNSCH PRN IV FLUSH FLUSH AFTER USING IV ACCESS; Start 06/16/17 at 12:30; Stop 06/16/17 at 17:44; Status DC Sodium Chloride 1,000 ml @ 1,000 mls/hr Q1H IV Last administered on 12:34; Start 06/16/17 at 12:20; Stop 06/16/17 at 13:19; Status DC Cefepime HCl 1000 mg/Sodium Chloride 100 ml @ 200 mls/hr ONCE ONCE IV Last administered on 06/16/17 13:40; Start 06/16/17 at 13:15; Stop 06/16/17 at 13 :44; Status DC Vancomycin HCl 1050 mg/Sodium Chloride 260.5 ml @ 250 mls/hr Q12H IV Last administered on 06/16/17 14:33; Start 06/16/17 at 13:45; Stop 06/16/17 at 17 :44; Status DC Dextrose (D50w (Vial) Inj) 50 ml UNSCH PRN IV PUSH HYPOGLYCEMIA-SEE COMMENTS; Start 06/16/17 at 16:30 Glucagon (Glucagon Inj) 1 mg UNSCH PRN OTHER HYPOGLYCEMIA-SEE COMMENTS; Start 06/16/17 at 16:30 Insulin Aspart (NovoLOG SUPPLEMENTAL SCALE) 1 ACHS SLIDING SCALE SQ ; Start at 17:00 Alprazolam (Xanax) 0.25 mg Q8H PRN PO ANXIETY; Start 06/16/17 at 16:45 Apixaban (Eliquis) 5 mg BID PO Last administered on 06/17/17 09:15; Start at 21:00 Cilostazol (Pletal) 50 mg BID PO ; Start 06/16/17 at 21:00; Stop 06/16/17 at 23:32; Status DC Citalopram Hydrobromide (CeleXA) 20 mg DAILY PO Last administered on 09:15; Start 06/17/17 at 09:00 Fentanyl (Duragesic 25 Mcg Patch.72 Hr) 1 patch Q72H T-DERMAL Last administered on 06/16/17 18:46; Start 06/16/17 at 18:00 Acetaminophen/ Hydrocodone Bitart ([place] 7.5-325 Mg) 1 tab Q4H PRN PO PAIN SCALE 1 TO 10; Start 06/16/17 at 16:45 Albuterol/ Ipratropium (Duoneb Neb) 1 ampule Q4HR NEB PRN INH SHORTNESS OF BREATH; Start 06/16/17 at 16:45 Lansoprazole (Prevacid Odt) 30 mg DAILY NG Last administered on 06/17/17 09: 16; Start 06/16/17 at 16:45 Lidocaine HCl (Xylocaine 2% Jelly) 1 applic DAILY TOPICAL ; Start 06/16/17 at 16:45; Stop 06/16/17 at 23:32; Status DC Metoprolol Tartrate (Lopressor) 12.5 mg BID PEG Last administered on 09:16; Start 06/16/17 at 21:00 Ondansetron HCl (Zofran Liq) 4 mg Q4HR PRN G-TUBE NAUSEA OR VOMITING; Start 06/16/17 at 16:45 Polyethylene Glycol (Miralax) 17 gm DAILY PRN G-TUBE CONSTIPATION; Start 06/16 at 16:45 Quetiapine Fumarate (SEROquel) 12.5 mg BID PO Last administered on 06/17/17 09:18; Start 06/16/17 at 21:00 Loratadine (Claritin) 10 mg DAILY G-TUBE Last administered on 06/17/17 09:15 ; Start 06/16/17 at 16:45 Hyoscyamine Sulfate (Levsin) 0.125 mg BID G-TUBE Last administered on 09:15; Start 06/16/17 at 21:00 Sodium Chloride 1,000 ml @ 125 mls/hr Q8H IV Last administered on 06/17/17 01:26; Start 06/16/17 at 17:00; Stop 06/17/17 at 04:22; Status DC Sodium Chloride (NS Flush) 2 ml UNSCH PRN IV FLUSH FLUSH AFTER USING IV ACCESS ; Start 06/16/17 at 16:45; Stop 06/16/17 at 16:54; Status DC Sodium Chloride (NS Flush) 2 ml BID IV FLUSH ; Start 06/16/17 at 21:00; Stop 06/16/17 at 21:00; Status DC Acetaminophen (Tylenol) 650 mg Q4H PRN PO TEMP > 100.4 Last administered on t 18:23; Start 06/16/17 at 16:45 Ondansetron HCl (Zofran Inj) 4 mg Q6H PRN IVP NAUSEA OR VOMITING; Start at 16:45 Prochlorperazine (Compazine Supp) 25 mg Q12H PRN RECTAL NAUSEA OR VOMITING; Start 06/16/17 at 16:45 Acetaminophen (Tylenol) 650 mg Q6H PRN PO PAIN SCALE 1 TO 2; Start 06/16/17 at 16:45 Oxycodone/ Acetaminophen (Percocet 5-325 Mg) 1 tab Q6H PRN PO PAIN SCALE 3 TO 5; Start 06/16/17 at 16:45 Oxycodone/ Acetaminophen (Percocet 10-325 Mg) 1 tab Q6H PRN PO PAIN SCALE 6 TO 10; Start 06/16/17 at 16:45 Morphine Sulfate (Morphine Inj) 2 mg Q3H PRN IV PUSH Pain 3-5; if unable to take PO; Start 06/16/17 at 16:45 Morphine Sulfate (Morphine Inj) 4 mg Q3H PRN IV PUSH Pain 6-10;if unable to take PO; Start 06/16/17 at 16:45 Morphine Sulfate (Morphine Inj) 4 mg Q1H PRN IV PUSH PAIN SCALE 7-10 ( INTRACTABLE); Start 06/16/17 at 16:45 Morphine Sulfate (Morphine Inj) 4 mg Q3H PRN IV PUSH BREAKTHROUGH PAIN; Start 06/16/17 at 16:45 Naloxone HCl (Narcan Inj) 0.4 mg UNSCH PRN IV PUSH SEE LABEL COMMENTS; Start 06/16/17 at 16:45 Senna/Docusate Sodium (Genoveva-Colace) 1 tab BID PO Last administered on t 09:15; Start 06/16/17 at 21:00 Magnesium Hydroxide (Milk Of Magnesia Liq) 30 ml Q12H PRN PO Mild constipation ; Start 06/16/17 at 16:45 Sennosides (Senokot) 17.2 mg Q12H PRN PO Moderate constipation; Start at 16:45 Bisacodyl (Dulcolax Supp) 10 mg DAILY PRN RECTAL SEVERE CONSITIPATION; Start 06/16/17 at 16:45 Lactulose (Lactulose Liq) 30 ml DAILY PRN PO SEVERE CONSITIPATION; Start 06/16 at 16:45 Sodium Chloride (NS Flush) 2 ml UNSCH PRN IV FLUSH FLUSH AFTER USING IV ACCESS ; Start 06/16/17 at 16:45 Sodium Chloride (NS Flush) 2 ml BID IV FLUSH Last administered on 06/17/17 13 :22; Start 06/16/17 at 21:00 Cefepime HCl 2000 mg/Sodium Chloride 100 ml @ 200 mls/hr Q12H IV Last administered on 06/17/17 01:25; Start 06/17/17 at 02:00 Pharmacy Profile Note 0 ml @ 0 mls/hr UNSCH OTHER ; Start 06/16/17 at 16:45 Albuterol/ Ipratropium (Duoneb Neb) 1 ampule Q4HR NEB PRN INH SHORTNESS OF BREATH; Start 06/16/17 at 16:45; Stop 06/16/17 at 17:56; Status DC Methylprednisolone Sodium Succinate (SoluMEDROL INJ) 40 mg Q8H IV PUSH Last administered on 06/17/17 09:15; Start 06/16/17 at 18:00 Guaifenesin/ Codeine Phosphate (Robitussin Ac 200-20 Mg/10 ml Liq) 10 ml Q4H PRN PO COUGH; Start 06/16/17 at 16:45 Miscellaneous (Pill Splitter) 1 ea UNSCH PRN OTHER SEE LABEL COMMENTS; Start 06/16/17 at 18:00 Vancomycin HCl 1250 mg/Sodium Chloride 262.5 ml @ 250 mls/hr Q24H IV Last administered on 06/17/17 13:23; Start 06/17/17 at 12:00; Status Future Hold Miscellaneous Information SPECIFIC LAB TO BE ... ONCE ONCE .XX ; Start at 11:45; Stop 06/19/17 at 11:46 A/P Problem List: (1) Tracheostomy dependent ICD Code: Z93.0 - Tracheostomy status Status: Acute (2) Laryngeal cancer ICD Code: C32.9 - Malignant neoplasm of larynx, unspecified Status: Chronic (3) Chronic respiratory failure ICD Code: J96.10 - Chronic respiratory failure, unspecified whether with hypoxia or hypercapnia Status: Acute (4) Acute respiratory failure ICD Code: J96.00 - Acute respiratory failure, unspecified whether with hypoxia or hypercapnia Status: Resolved (5) Aspiration pneumonia ICD Code: J69.0 - Pneumonitis due to inhalation of food and vomit Status: Acute (6) Acute respiratory failure with hypoxemia ICD Code: J96.01 - Acute respiratory failure with hypoxemia Status: Acute (7) SIRS due to infectious process without acute organ dysfunction ICD Code: A41.9 - Sepsis, unspecified organism Status: Acute (8) Shortness of breath ICD Code: R06.02 - Shortness of breath Status: Acute (9) Failure to thrive in adult ICD Code: R62.7 - Adult failure to thrive Status: Chronic (10) COPD (chronic obstructive pulmonary disease) ICD Code: J44.9 - Chronic obstructive pulmonary disease, unspecified Status: Chronic (11) Sepsis ICD Code: A41.9 - Sepsis, unspecified organism Status: Acute (12) Confusion ICD Code: R41.0 - Disorientation, unspecified Status: Acute (13) Weakness ICD Code: R53.1 - Weakness Status: Acute Assessment and Plan Respiratory failure with worsening respiratory status. Continue on antibiotics with duo nebs vancomycin and cefepime continue on guaifenesin continue on oxygen consult pulmonary medicine Worsening pulmonary status will give aggressive pulmonary toilet continue on steroids Altered mental status suspect secondary to infection Laryngeal cancer status post tracheostomy follows with Dr. Josie LUNSFORD last week Chronic DVT continue on Eliquis Dysphagia continue on tube feeds Polycystic kidney disease with chronic creatinine continue on fluids=- MILD IMPROVEMENT WITH FLUIDS POSITIVE TROPONINS WITH SUSPECTED DEMAND ISCHEMIA- NO INTERVENTIONS PER CARDIOLOGY- CONTINUE BETA JESSICA Worsening pulmonary status possible sepsis Tachycardia continue on his beta jessica Diabetes mellitus continue on sliding scale with Accu-Cheks before meals and at bedtime GERD continue on PPI Peripheral vascular occlusive disease continue on his chronic anticoagulation Chronic pain continue on pain control have IV pain medications available Prognosis is quite guarded. Family even discussed the possibility of going to hospice inpatient but is not ready for this at this time yet Daughter and POA who is another daughter who was in attendance over her phone and at bedside Discussed with them PALLIATIVE CARE CONSULT NOT SEEN BY DR RIVERA YET AM LABS Discharge Planning PALLIATIVE CARE- Problem Qualifiers (1) Sepsis: Qualified Codes: A41.9 - Sepsis, unspecified organism Bobby Matamoros DO Jun 17, 2017 14:59
[2017-06-17 16:07] LABS: HEMOGLOBIN A1a 1.1 %; HEMOGLOBIN Ao 83.9 %; HEMOGLOBIN F 1.3 %; HEMOGLOBIN P3 5.5 %
--- NOTE | 2017-06-17 16:25 | PD.CONS ---
Consult Service Palliative Care . Consult Requested By Matilda BENAVIDES . Primary Care Physician Juliane Briggs MD . Reason for Consultation a. To assist with evaluation and management of symptoms including: dyspnea, debility, malnutrition, pain b. To assist medical decision maker(s) with: better understanding of current medical conditions; weighing benefits/burdens of medical treatment options; making medical treatment decisions. . HPI History of Present Illness Mr. Briones is a 66-year-old man with a history of laryngeal carcinoma diagnosed in 2015; he apparently underwent chemotherapy last week. He presented to [facility] ED on 06/16/2017 for evaluation of altered mental status. The patient's stated the patient was at his baseline earlier in the day and then he stopped responding to her. The patient's stated that she had to change the patient's trach multiple times overnight because it was getting plugged with blood and sputum. Of note the patient has had several hospitalizations this year both in September and again in March secondary to respiratory distress, aspiration, pneumonia and sepsis. On exam the patient was tachycardic with large amounts of sputum coming from his trach. PMH includes arthritis, DVTs on Eliquis,cardiovascular disease, cataracts, COPD, CAD , DM, GERD, history of OR, HTN, peripheral neuropathy, PVD, TIA Additional diagnostic data: * Vital signs: Pulse 123, respirations 33, BP 129/58, oxygen saturation 97% on 100% FiO2 via trach collar, oral temperature 97.9 * WBC: 14.7, hemoglobin 10.5, hematocrit 33.2, platelets 44, neutrophils 92.1% * Sodium: 126, potassium 5.1, chloride 89, carbon dioxide 26.5, glucose 186, calcium 9.3 * BUN: 23, creatinine 1.75, GFR 39 * Lactic acid: 3.4 * Total bilirubin: 0.3, AST 16, ALT 13, alkaline phosphatase 114 * Total creatine kinase: 32 * Troponin <0.02 * Total protein: 6.7, albumin 2.2 * Blood cultures: No growth 1 day * Sputum culture: + Staph * Chest x-ray showed chronic interstitial changes * CT of the head revealed cortical atrophy, old areas of infarct involving the right basal ganglia. No acute intracranial abnormalities were identified. Patient was admitted for further evaluation and medical management of sepsis. He received IV fluids and was given cefepime and vancomycin while in the ED. Patient follows Dr. Solorzano (pulmonology) and Dr. Melchor (oncology); both were consulted. Initial troponin was negative <0.02 becoming mildly elevated during serial troponins; cardiology was consulted. Patient has a significant cardiac history , appears comfortable on exam. Dr. Narayanan's outpatient approximately 2 years ago when the patient presented with a left femoropopliteal I passed thrombosis. A thrombectomy was done with stent placement. The patient was also seen by vascular surgery for carotid stenosis which was managed conservatively. EKG did not show any acute changes. An echocardiogram in 03/2017 showed an EF 50%. Recommendations for conservative management. . Function/Cognitive Trajectory Mr. Iverson is a 66-year-old male patient with a history of laryngeal cancer diagnosed in 2015 s/p tracheostomy and PEG tube placement. Patient has been hospitalized multiple times since September, secondary to respiratory distress, aspiration, pneumonia and sepsis. Patient is severely deconditioned, appetite is poor and the patient is cachectic in appearance. He is becoming increasingly fatigued with episodes of confusion/ anxiety. . Review of Systems ROS Limitations: Clinical Condition, Altered Mental Status, Speech Impaired Constitutional: COMPLAINS OF: Fatigue, Weight loss, Change in appetite ( decreased), Pain (secondary to malignancy), Generalized weakness Respiratory: COMPLAINS OF: Sputum production Psychiatric: COMPLAINS OF: Confusion Past Family Social History Coded Allergies: amlodipine (Unverified Allergy, Severe, 06/16/17) atorvastatin (Unverified Allergy, Severe, 06/16/17) niacin (Unverified Allergy, Severe, 06/16/17) CAUSES HIM TO FEEL HOT pravastatin (Unverified Allergy, Severe, 06/16/17) simvastatin (Unverified Allergy, Severe, 06/16/17) fish oil (Unverified Allergy, Intermediate, Diarrhea, 06/16/17) Past Medical History Hx of laryngeal carcinoma diagnosed in 09/2015 Arthritis History of heart attack Peripheral neuropathy HTN HLD CAD s/p CABG 2012 with subsequent stent DM2 PAD CKD, stage IV GERD Right internal carotid artery stenosis Hx of DVT CHF COPD Previous CVA/TIA . Past Surgical History Previous CABG and multiple cardiac stents Bilateral femoral bypass 2008 Status post port placement Status post PEG tube placement Cholecystectomy Previous left shoulder surgery Tonsillectomy . Reported Medications Metoprolol Tartrate 25 Mg Tab 12.5 Mg PEG BID Keytruda Inj (Pembrolizumab) 50 Mg Inj Cilostazol 50 Mg Tab 50 Mg PO BID Fentanyl Patch 72 HR (Fentanyl) 25 Mcg/Hr Patch 25 Mcg T-DERMAL Q72H Promethazine (Promethazine HCl) 12.5 Mg Tab 25 Mg PO Q6H PRN Pantoprazole (Pantoprazole Sodium) 40 Mg Tab 40 Mg PO DAILY Omeprazole 40 Mg Cap 40 Mg PO DAILY Nitroglycerin SL (Nitroglycerin) 0.4 Mg Subl 0.4 Mg SL DIRECTED PRN ONE TABLET UNDER THE TONGUE NEEDED FOR CHEST PAIN, MAY REPEAT EVERY FIVE MINUTES FOR A TOTAL OF 3 DOSES OR CALL 911 IF NO RELIEF Lidocaine Topical (Lidocaine HCl) 2 % Jel 1 Applic TOPICAL DAILY Citalopram (Citalopram Hydrobromide) 20 Mg Tab 20 Mg PO DAILY . Current Medications Medications (Trade) Dose Ordered Sig/Alea Route Start Time Stop Time Status Last Admin (D50w (Vial) Inj) 50 ml UNSCH PRN IV PUSH 06/16/17 16:30 (Glucagon Inj) 1 mg UNSCH PRN OTHER 06/16/17 16:30 (NovoLOG SUPPLEMENTAL SCALE) 1 ACHS SLIDING SCALE SQ 06/16/17 17:00 (Xanax) 0.25 mg Q8H PRN PO 06/16/17 16:45 (Eliquis) 5 mg BID PO 06/16/17 21:00 06/17/17 09:15 (CeleXA) 20 mg DAILY PO 06/17/17 09:00 06/17/17 09:15 (Duragesic 25 Mcg Patch.72 Hr) 1 patch Q72H T-DERMAL 06/16/17 18:00 06/16/17 18:46 ([place] 7.5-325 Mg) 1 tab Q4H PRN PO 06/16/17 16:45 (Duoneb Neb) 1 ampule Q4HR NEB PRN INH 06/16/17 16:45 (Prevacid Odt) 30 mg DAILY NG 06/16/17 16:45 06/17/17 09:16 (Lopressor) 12.5 mg BID PEG 06/16/17 21:00 06/17/17 09:16 (Zofran Liq) 4 mg Q4HR PRN G-TUBE 06/16/17 16:45 (Miralax) 17 gm DAILY PRN G-TUBE 06/16/17 16:45 (SEROquel) 12.5 mg BID PO 06/16/17 21:00 06/17/17 09:18 (Claritin) 10 mg DAILY G-TUBE 06/16/17 16:45 06/17/17 09:15 (Levsin) 0.125 mg BID G-TUBE 06/16/17 21:00 06/17/17 09:15 (Tylenol) 650 mg Q4H PRN PO 06/16/17 16:45 06/16/17 18:23 (Zofran Inj) 4 mg Q6H PRN IVP 06/16/17 16:45 (Compazine Supp) 25 mg Q12H PRN RECTAL 06/16/17 16:45 (Tylenol) 650 mg Q6H PRN PO 06/16/17 16:45 (Percocet 5-325 Mg) 1 tab Q6H PRN PO 06/16/17 16:45 (Percocet 10-325 Mg) 1 tab Q6H PRN PO 06/16/17 16:45 (Morphine Inj) 2 mg Q3H PRN IV PUSH 06/16/17 16:45 (Morphine Inj) 4 mg Q3H PRN IV PUSH 06/16/17 16:45 (Morphine Inj) 4 mg Q1H PRN IV PUSH 06/16/17 16:45 (Morphine Inj) 4 mg Q3H PRN IV PUSH 06/16/17 16:45 (Narcan Inj) 0.4 mg UNSCH PRN IV PUSH 06/16/17 16:45 (Genoveva-Colace) 1 tab BID PO 06/16/17 21:00 06/17/17 09:15 (Milk Of Magnesia Liq) 30 ml Q12H PRN PO 06/16/17 16:45 (Senokot) 17.2 mg Q12H PRN PO 06/16/17 16:45 (Dulcolax Supp) 10 mg DAILY PRN RECTAL 06/16/17 16:45 (Lactulose Liq) 30 ml DAILY PRN PO 06/16/17 16:45 (NS Flush) 2 ml UNSCH PRN IV FLUSH 06/16/17 16:45 (NS Flush) 2 ml BID IV FLUSH 06/16/17 21:00 06/17/17 13:22 Cefepime HCl 2000 mg/Sodium Chloride 100 ml @ 200 mls/hr Q12H IV 06/17/17 02:00 06/17/17 15:20 Pharmacy Profile Note 0 ml @ 0 mls/hr UNSCH OTHER 06/16/17 16:45 (SoluMEDROL INJ) 40 mg Q8H IV PUSH 06/16/17 18:00 06/17/17 09:15 (Robitussin Ac 200-20 Mg/10 ml Liq) 10 ml Q4H PRN PO 06/16/17 16:45 (Pill Splitter) 1 ea UNSCH PRN OTHER 06/16/17 18:00 Vancomycin HCl 1250 mg/Sodium Chloride 262.5 ml @ 250 mls/hr Q24H IV 06/17/17 12:00 Future Hold 06/17/17 13:23 Miscellaneous Information SPECIFIC LAB TO BE [facility]... ONCE ONCE .XX 06/19/17 11:45 06/19/17 11:46 Family History Family history significant for CVA, hypertension, diabetes, and polycystic kidney disease. Denies any family history of cancer. . Substance Use Tobacco: Patient has at least an [id number] history of smoking. He began smoking cigarettes when he was 10 years old. He smoked 2 PPD until 2005 when he quit. Alcohol: Patient denies alcohol consumption Prescription med abuse: None known Illicits: None known . 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 He is 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 Antonietta Yuan (daughter) is primary health care surrogate. She is a nurse working in [facility]. Triny Fortune (daughter), works at [employer]. . Spiritual/Cultural Factors No scientologist affiliation . Health Care Surrogate: Copy in medical record Date completed: 02/22/2017 . Health Care Surrogate(s): Patient has designated Antonietta Yuan as his health care surrogate decision maker. Ledy Fortune is designated as the alternate health care surrogate. . Documented care wishes: Completed health care surrogate designation form is accessible and the patient' s EMR. No other known written advanced directives has been completed. . Today's verbally stated goals: Patient is lethargic, not participating in discussions about medical treatment goals at the time of exam. . Family/friends goals: Per notes, the family has discussed transitioning to comfort focused care but do not feel they are ready for hospice at this time. Further clarification of medical treatment goals pending the arrival of the patient's daughter/HCS ( Antonietta) tomorrow afternoon 06/18/2017. Ethical and Legal Issues No known ethical or legal issues at this time. . Physical Exam Vital Signs Date Time Temp Pulse Resp B/P (MAP) Pulse Ox O2 Delivery O2 Flow Rate FiO2 06/17/17 12:00 97.1 76 20 121/58 (79) 96 06/17/17 09:00 Trach Collar 5.00 100 06/17/17 08:13 81 06/17/17 08:00 97.3 89 20 119/57 (77) 97 06/17/17 04:00 97.9 82 20 116/55 (75) 100 06/17/17 00:00 97.9 92 18 108/54 (72) 97 06/16/17 20:00 T-Piece 8.00 50 06/16/17 20:00 98 06/16/17 20:00 98.3 102 20 124/61 (82) 98 06/16/17 18:45 T-Piece 6.00 50 06/16/17 18:38 100 T-piece 6.00 50 06/16/17 18:24 06/16/17 18:15 98.0 119 20 115/58 (77) 100 . . 06/17/17 06/18/17 19:00 07:00 Intake Total 250 ml Balance 250 ml IV Total 250 ml . Exam CONSTITUTIONAL/GENERAL: This is an adequately nourished patient, in no apparent distress. TUBES/LINES/DRAINS: Tracheostomy, trach collar, PIV SKIN: Ecchymoses on upper extremities. Skin temperature appropriate. Not diaphoretic. HEAD: Atraumatic. Normocephalic. EYES: Pupils equal and round. No scleral icterus. No injection or drainage. ENT: Hearing grossly normal. Nose without bleeding or purulent drainage. NECK: Status post tracheostomy CARDIOVASCULAR: Regular rate and rhythm without murmurs, gallops, or rubs. No JVD. RESPIRATORY/CHEST: Coarse breath sounds. Intermittent, productive cough with pinkish sputum GASTROINTESTINAL: Abdomen soft, non-tender, nondistended. No guarding. Bowel sounds present. GENITOURINARY: Without palpable bladder distension. . MUSCULOSKELETAL: Extremities without clubbing, cyanosis, or edema. No mottling or clubbing. LYMPHATICS: No palpable cervical or supraclavicular adenopathy. NEUROLOGICAL: Awake. Lethargic Attempts to respond to yes/no questions by nodding and shaking his head. Unable to assess insight or judgment. PSYCHIATRIC: No obvious anxiety/depression. no apparent hallucinations or other psychotic thought process. . Diagnostic Tests Laboratory Laboratory Tests Test 06/16/17 12:25 06/16/17 13:40 06/16/17 13:50 06/16/17 15:28 White Blood Count 14.7 TH/MM3 (4.0-11.0) Red Blood Count 3.87 MIL/MM3 (4.50-5.90) Hemoglobin 10.5 GM/DL (13.0-17.0) Hematocrit 33.2 % (39.0-51.0) Mean Corpuscular Volume 85.8 FL (80.0-100.0) Mean Corpuscular Hemoglobin 27.2 PG (27.0-34.0) Mean Corpuscular Hemoglobin Concent 31.7 % (32.0-36.0) Red Cell Distribution Width 16.5 % (11.6-17.2) Platelet Count 404 TH/MM3 (150-450) Mean Platelet Volume 8.3 FL (7.0-11.0) Neutrophils (%) (Auto) 92.1 % (16.0-70.0) Lymphocytes (%) (Auto) 1.8 % (9.0-44.0) Monocytes (%) (Auto) 5.9 % (0.0-8.0) Eosinophils (%) (Auto) 0.0 % (0.0-4.0) Basophils (%) (Auto) 0.2 % (0.0-2.0) Neutrophils # (Auto) 13.5 TH/MM3 (1.8-7.7) Lymphocytes # (Auto) 0.3 TH/MM3 (1.0-4.8) Monocytes # (Auto) 0.9 TH/MM3 (0-0.9) Eosinophils # (Auto) 0.0 TH/MM3 (0-0.4) Basophils # (Auto) 0.0 TH/MM3 (0-0.2) CBC Comment DIFF FINAL Differential Comment Prothrombin Time 12.3 SEC (9.8-11.6) Prothromb Time International Ratio 1.1 RATIO Activated Partial Thromboplast Time 33.3 SEC (24.3-30.1) Blood Urea Nitrogen 23 MG/DL (7-18) Creatinine 1.75 MG/DL (0.60-1.30) Random Glucose 186 MG/DL (74-106) Total Protein 6.7 GM/DL (6.4-8.2) Albumin 2.2 GM/DL (3.4-5.0) Calcium Level 9.3 MG/DL (8.5-10.1) Alkaline Phosphatase 114 U/L (45-117) Aspartate Amino Transf (AST/SGOT) 16 U/L (15-37) Alanine Aminotransferase (ALT/SGPT) 13 U/L (12-78) Total Bilirubin 0.3 MG/DL (0.2-1.0) Sodium Level 126 MEQ/L (136-145) Potassium Level 5.1 MEQ/L (3.5-5.1) Chloride Level 89 MEQ/L (98-107) Carbon Dioxide Level 26.5 MEQ/L (21.0-32.0) Anion Gap 11 MEQ/L (5-15) Estimat Glomerular Filtration Rate 39 ML/MIN (>89) Lactic Acid Level 3.4 mmol/L (0.4-2.0) 1.4 mmol/L (0.4-2.0) Total Creatine Kinase 32 U/L (39-308) Troponin I LESS THAN 0.02 NG/ML Blood Gas Puncture Site RT RADIAL Blood Gas Patient Temperature 98.6 Blood Gas HCO3 25 mmol/L (22-26) Blood Gas Base Excess -0.6 mmol/L (-2-2) Blood Gas Oxygen Saturation 96 % (90-100) Arterial Blood pH 7.29 (7.380-7.420) Arterial Blood Partial Pressure CO2 53 mmHg (38-42) Arterial Blood Partial Pressure O2 106 mmHG (61-120) Arterial Blood Oxygen Content 13.6 Vol % (12.0-20.0) Arterial Blood Carboxyhemoglobin 1.3 % (0-4) Arterial Blood Methemoglobin 0.4 % (0-2) Blood Gas Hemoglobin 9.9 G/DL (12.0-16.0) Oxygen Delivery Device MASK Blood Gas Liter Flow 7 L/M Blood Gas Inspired Oxygen 100 % Urine Color YELLOW (YELLW/STRAW) Urine Turbidity CLEAR (CLEAR) Urine pH 5.5 (5.0-8.5) Urine Specific [place] 1.013 (1.002-1.035) Urine Protein TRACE mg/dL (NEG-TRACE) Urine Glucose (UA) NEG mg/dL (NEG) Urine Ketones NEG mg/dL (NEG) Urine Occult Blood NEG (NEG) Urine Nitrite NEG (NEG) Urine Bilirubin NEG (NEG) Urine Urobilinogen LESS THAN 2.0 MG/DL (LESS Urine Leukocyte Esterase NEG (NEG) Urine RBC LESS THAN 1 /hpf (0-3) Urine WBC 1 /hpf (0-5) Microscopic Urinalysis Comment CATH-CULT NOT IND Test 06/16/17 19:53 06/17/17 02:57 Total Creatine Kinase 137 U/L (39-308) 194 U/L (39-308) Troponin I 0.56 NG/ML (0.02-0.05) 0.80 NG/ML (0.02-0.05) White Blood Count 10.2 TH/MM3 (4.0-11.0) Red Blood Count 3.38 MIL/MM3 (4.50-5.90) Hemoglobin 9.2 GM/DL (13.0-17.0) Hematocrit 28.6 % (39.0-51.0) Mean Corpuscular Volume 84.8 FL (80.0-100.0) Mean Corpuscular Hemoglobin 27.3 PG (27.0-34.0) Mean Corpuscular Hemoglobin Concent 32.1 % (32.0-36.0) Red Cell Distribution Width 16.3 % (11.6-17.2) Platelet Count 280 TH/MM3 (150-450) Mean Platelet Volume 7.9 FL (7.0-11.0) Neutrophils (%) (Auto) 93.5 % (16.0-70.0) Lymphocytes (%) (Auto) 3.7 % (9.0-44.0) Monocytes (%) (Auto) 2.7 % (0.0-8.0) Eosinophils (%) (Auto) 0.0 % (0.0-4.0) Basophils (%) (Auto) 0.1 % (0.0-2.0) Neutrophils # (Auto) 9.6 TH/MM3 (1.8-7.7) Lymphocytes # (Auto) 0.4 TH/MM3 (1.0-4.8) Monocytes # (Auto) 0.3 TH/MM3 (0-0.9) Eosinophils # (Auto) 0.0 TH/MM3 (0-0.4) Basophils # (Auto) 0.0 TH/MM3 (0-0.2) CBC Comment DIFF FINAL Differential Comment Blood Urea Nitrogen 27 MG/DL (7-18) Creatinine 1.72 MG/DL (0.60-1.30) Random Glucose 125 MG/DL (74-106) Total Protein 5.7 GM/DL (6.4-8.2) Albumin 1.8 GM/DL (3.4-5.0) Calcium Level 8.2 MG/DL (8.5-10.1) Phosphorus Level 5.0 MG/DL (2.5-4.9) Magnesium Level 2.1 MG/DL (1.5-2.5) Alkaline Phosphatase 96 U/L (45-117) Aspartate Amino Transf (AST/SGOT) 26 U/L (15-37) Alanine Aminotransferase (ALT/SGPT) 13 U/L (12-78) Total Bilirubin 0.4 MG/DL (0.2-1.0) Sodium Level 131 MEQ/L (136-145) Potassium Level 5.3 MEQ/L (3.5-5.1) Chloride Level 98 MEQ/L (98-107) Carbon Dioxide Level 25.9 MEQ/L (21.0-32.0) Anion Gap 7 MEQ/L (5-15) Estimat Glomerular Filtration Rate 40 ML/MIN (>89) Free Thyroxine 1.15 NG/DL (0.76-1.46) Thyroid Stimulating Hormone 3rd Gen 0.640 uIU/ML (0.358-3.740) . Result Diagram: 06/17/17 0257 06/17/17 0257 Microbiology Microbiology Date/Time Source Procedure Growth Status 06/16/17 12:25 Blood Peripheral Aerobic Blood Culture - Preliminary NO GROWTH IN 1 DAY Resulted 06/16/17 12:25 Blood Peripheral Anaerobic Blood Culture - Preliminary NO GROWTH IN 1 DAY Resulted 06/16/17 12:25 Blood Peripheral Aerobic Blood Culture - Preliminary NO GROWTH IN 1 DAY Resulted 06/16/17 12:25 Blood Peripheral Anaerobic Blood Culture - Preliminary NO GROWTH IN 1 DAY Resulted 06/16/17 14:22 Sputum Endotracheal Gram Stain - Final Resulted 06/16/17 14:22 Sputum Culture - Preliminary Gram Negative Eric Staphylococcus Aureus Group B Beta Strep Resulted Imaging Last 72 hours Impressions Chest X-Ray 06/17/17 0600 Signed Impressions: Service Date/Time: Saturday, June 17, 2017 04:31 - CONCLUSION: 1. No acute cardiopulmonary disease. Chivo Bates MD Head CT 06/16/17 1220 Signed Impressions: Service Date/Time: Friday, June 16, 2017 12:42 - CONCLUSION: 1. Cortical atrophy. 2. 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 3. No acute intracranial abnormality identified. Dion Coto MD Chest X-Ray 06/16/17 1220 Signed Impressions: Service Date/Time: Friday, June 16, 2017 12:32 - CONCLUSION: 1. Chronic interstitial changes. 2. The exam is significantly improved when compared to prior. 3. Support equipment in good position. Dion Coto MD . Patient/Family Conference Present at Family Conference: Spoke with patient's at bedside; patient's sister participated via telephone. They did not wish to speak with Palliative care at length today. Patient's stepdaughter/HCS (Antonietta) will be arriving tomorrow afternoon 2016, and they asked to defer conversations until that time. . Issues Discussed: * Palliative care role, purpose, approach * Patients general health, functional status, and cognitive changes in the months leading up to the current hospitalization * Palliative care contact information provided . Assessment and Plan Disease Oriented Problem List: (1) COPD (chronic obstructive pulmonary disease) (2) Tracheostomy dependent (3) Carotid artery disease (4) Diabetes mellitus (5) Elevated troponin I level (6) PVD (peripheral vascular disease) (7) ROSALINO (acute kidney injury) (8) Hyperlipidemia (9) Hypertension (10) Congestive heart failure (CHF) (11) Acute respiratory failure (12) Chronic respiratory failure (13) Laryngeal cancer (14) SIRS due to infectious process without acute organ dysfunction (15) Sepsis Symptom Scale: (1) Debility (2) Malnutrition Pertinent Non-Medical Issues Psychosocial: Patient was born and raised in [place]. 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 The patient has lived with his in [place] several years. He has no biological children but has 4 stepdaughters. Antonietta Yuan (daughter) is primary health care surrogate. She is a nurse working in [facility]. Triny Fortune (daughter), works at [employer]. Spiritual: No scientologist affiliation Legal: Antonietta Yuan (primary HCS) [phone] or [phone]. Triny Devika (alternate HCS): [phone] or [phone] or [phone] Ethical issues impacting care: No known ethical issues impacting care at this time. . Important Contacts Antonietta Yuan. (primary HCS): [phone] or [phone] Triny Devika (alternate HCS): [phone]. Work: or . 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 Pt also have underlying CAD, CKD, occluded right carotid artery, deconditioning, malnutrition, pneumonia, and confusion at times. Patient has been hospitalized multiple times since September, secondary to respiratory distress, aspiration, pneumonia and sepsis. Would be appropriate fo hospice if goals of care were to transition to comfort measures only. . Code Status: Full Code Plan * FULL CODE * Decision-making: Unable to access patient's insight and judgement related to patient's clinical condition. Patient has designated Antonietta Yuan as his health care surrogate decision maker. Ledy Fortune is designated as the alternate health care surrogate. Completed forms are accessible and the patient 's EMR. * Goals: Per notes, the family have discussed transitioning to comfort focused care but do not feel they are ready for hospice at this time. Further clarification of medical treatment goals pending the arrival of the patient's daughter/HCS (Antonietta) tomorrow 06/18/2017 * Attempted to contact the designated health care surrogate (Antonietta) via telephone to introduce the Palliative Care team and attempt to schedule a family meeting tomorrow 06/18/17 upon her arrival A message was left on her voicemail with palliative care contact information, awaiting return phone call. I also spoke to patient's step daughter (Ledy) vis telephone who states Antonietta will not be arriving and till late tomorrow evening. * Palliative Care contact information provided to the patient's family * Tentative family meeting on 06/19/2017. * Symptom management-debility: Patient with a history of laryngeal cancer diagnosed in 2016 s/p tracheostomy and PEG tube placement. Patient has been hospitalized multiple times since September, secondary to respiratory distress, aspiration, pneumonia and sepsis. Patient is severely deconditioned, increasingly fatigued with episodes of confusion/ anxiety. * Symptom management - pain: Pain is likely secondary to malignancy. Currently pain controlled with fentanyl Duragesic patch 25 g every 72 hours. PRN [place], Percocet and IV morphine are also available. It appears the patient was receiving PRN [place] at home and in addition to fentanyl Duragesic patch for pain management; would consider discontinuing PRN Percocet. * Symptom management - malnutrition: Status post PEG tube placement. Patient has lost approximately 20 kg in the past 12 months. BMI: 18.3. Total protein: 5.7, albumin 1.8. Dietary was consulted for recommendations. * Palliative care will continue to follow this patient throughout his hospitalization to establish trust, assist with symptom management and clarification of medical treatment goals. . Thank you for the opportunity to participate in the care of Mr. Iverson. . Collaborating MD Comments . Attestation To help prompt me to consider important information that might be impacting today's encounter and assessment, information from prior notes written by myself or my colleagues may have been "brought forward" into today's note. My signature on this note, however, is an attestation that I personally performed the exam, history, and/or decision-making noted today, and, unless otherwise indicated, the interactions with patient, family, and staff as well as the review of records all occurred today. I also attest that the listed assessment and stated plan reflect my best clinical judgment today based on the combination of historical information, prior notes, and today's exam/ interactions. When time spent is documented, it refers only to time spent today by the signer, or if indicated, combined time spent today by collaborating physician/nurse practitioner. . Pati Oneal Jun 17, 2017 16:25
--- NOTE | 2017-06-17 18:17 | MB ---
cc: MAGDALENA RIVERA DATE OF CONSULTATION: 06/17/2017 REASON FOR CONSULTATION: Patient with a history of recurrent laryngeal carcinoma who presents to the emergency department with altered mental status and respiratory distress. HISTORY OF PRESENT ILLNESS This is a 66-year-old male who has a history of recurrent laryngeal cancer. He is currently being treated with immunotherapy and receiving IV Keytruda every three weeks. He has high-risk disease. 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 He initially received definitive radiation treatments at the [facility] in [place]. He was not a candidate for chemotherapy or surgery due to his poor performance status and multiple comorbidities. He was subsequently under observation, however, he relapsed in summer. He has undergone tracheostomy. He was brought to the emergency room after he was found to be unresponsive by his . The patient was getting his tracheostomy tube clogged with mucous, blood and sputum. She has been having a difficult time suctioning the secretions. She states that a large mucous plug was suctioned out. The patient was admitted to the hospital for respiratory distress and an acute respiratory infection. He is currently on IV vancomycin and cefepime and he was started on IV steroids. He is getting breathing treatments p.r.n. He appears to be doing better today. He is awake and alert. His oxygen saturations are in the high 90s. He remains quite weak and cachectic. We have had several conversations with the patient, his and his daughters regarding palliative care and Hospice in the past, however, they have opted to pursue aggressive treatment. REVIEW OF SYSTEMS A comprehensive 14-point review of systems was completed which is negative except as described in the HPI. PAST MEDICAL HISTORY 1. History of recurrent laryngeal cancer currently on immunotherapy. 2. History of CAD, status post CABG and stents. 3. History of COPD. 4. History of GERD. 5. Hypertension. 6. Hyperlipidemia. 7. Severe peripheral vascular disease. 8. Chronic pain. 9. Polycystic kidney disease. PAST SURGICAL HISTORY: 1. Status post tracheostomy. 2. Port placement. 3. PEG tube placement. 4. CABG with multiple cardiac stents. 5. Peripheral vascular stents. 6. Cholecystectomy. FAMILY HISTORY: Reviewed and noncontributory to this admission. SOCIAL HISTORY: He does not smoke cigarettes. He does not drink alcohol. No illicit drug use. He lives with his . MEDICATIONS: 1. Vancomycin. 2. Celexa 20 mg daily. 3. Eliquis 5 mg p.o. b.i.d. 4. Lopressor 12.5 mg b.i.d. 5. Seroquel 12.5 mg p.o. b.i.d. 6. Senna 1 tablet p.o. b.i.d. 7. Fentanyl patch q72 hours. 8. Solu-Medrol 40 milligrams IV q8 hours. 9. Insulin sliding scale. 10. Xanax 0.25 mg p.o. q.8 h p.r.n. 11. [place] 7.5/325 milligrams one tablet p.o. q4 hours. 12. DuoNebs INH, q4 hours p.r.n. 13. Prevacid 30 mg p.o. daily. 14. Zofran 4 mg q.4 h. 15. MiraLax 17 grams p.r.n. 16. Tylenol 650 p.r.n. 17. Zofran 4 mg p.r.n. 18. Compazine 25 mg p.r.n. ALLERGIES ALLERGIC TO AMLODIPINE, ATORVASTATIN, FISH OIL, NIACIN, PRAVASTATIN AND SIMVASTATIN. LABORATORY DATA WBCs 10.2, hemoglobin is 9.2, MCV 84.8, platelet count is 280. Serum chemistries show sodium of 131, potassium 5.3, chloride 98, CO2 25.9, BUN is 27, creatinine is 1.72. His GFR is 40, calcium is 8.2, phosphorus 5, AST 16, ALT 13, CK is 194. Troponins are elevated at 0.8. Total protein is 5.70. IMAGING STUDIES: Chest x-rays reviewed. ASSESSMENT/PLAN This is a 66 year-old male who has recurrent pharyngeal cancer, who is currently being treated with immunotherapy. He presents to the emergency department with altered mental status and respiratory distress. 1. Altered mental status. It appears that he may have had a tracheostomy tube occlusion. The said that he had a large mucous plug that was suctioned out. Hypoxia may have contributed to the mental status. He has also had elevated troponin. He has been seen by cardiology. They believe that this is demand induced ischemia. They have recommended conservative management. I would obtain CT of the neck to assess his disease status. I had a long discussion with the patient and his . They continue to want to pursue aggressive treatment. We did discuss palliative care and Hospice, however, the is not interested in pursuing Hospice at this time. I did ask her to speak with palliative care to have a conversation regarding goals of care. 2. Anemia which is normocytic. He has received iron infusions in the past. We will repeat anemia studies. 3. ? [id number] NC. Troponins are elevated? Demand ischemia, would defer further management to cardiology. 4. Acute and chronic kidney failure. Creatinine is 1.72, likely due to prerenal causes. Will continue to monitor. I agree with aggressive continuing supportive care for now. IV steroids, pulmonary toilet, neb treatment. We can potentially de-escalate the antibiotics if the blood cultures are negative. Thank you for allowing me to participate in the care of this patient. I will continue to follow this patient along. MD VANCE Lima/MARGO /4:38 PM /5:54 PM EZEKIEL
--- NOTE | 2017-06-17 18:56 | MB ---
cc: YEVGENIY INIGUEZ DATE OF CONSULTATION 06/10/[address] Bobby Matamoros HISTORY OF PRESENT ILLNESS Mr. Iverson is a pleasant 66-year old male with history of laryngeal carcinoma. He had history of tracheostomy. He had radiation and chemotherapy done. The patient was brought to the hospital by his because of worsening in his mental status over the last few days and increased secretion from trache. At times, trache secretions are bloody and on has to change the trache tube many times. He did not have any fever. He was brought to the hospital. He had a workup done. His CBC showed WBC count 10.2, hemoglobin 9.2, hematocrit 28.6, MCV 84, platelet count 280. Sodium 130, potassium 5.3, chloride 98, CO2 25, BUN 27, creatinine 1.72. Blood gas - pH 7.29, pCO2 53, pO2 106 on 100% mask. His INR is 1.1. CT scan of the brain shows cortical atrophy, old infarct. His chest x-ray shows no acute cardiopulmonary process. PAST MEDICAL HISTORY 1. History of laryngeal carcinoma status post chemotherapy and tracheostomy 2. History of coronary artery disease 3. Hyperlipidemia 4. Diabetes mellitus, 5. Congestive heart failure 6. History of CVA and TIA. MEDICATIONS Currently taking 1. Citalopram 28 mg. 2. Cefepime 2 gram q 12 hr 3. Eliquis 5 mg twice a day 4. Metoprolol 12.5 mg twice a day. 5. Glucosamine 0.125 mg twice a day, 6. Solu-Medrol 30 mg q 8 hr 7. Xanax 0.25 mg as needed. ALLERGIES AMLODIPINE LIPITOR FISH OIL NIACIN PRAVASTATIN SIMVASTATIN SOCIAL HISTORY Noncontributory. REVIEW OF SYSTEMS The patient is obtunded, not able to give much history HISTORY OF PRESENT ILLNESS GENERAL: Elderly male on tracheostomy collar. VITAL SIGNS: Blood pressure 121/58, heart rate 70, respirations 20, temperature 97.1 HEENT: Pupils are equal, react to light NECK: Supple. He has trache in place. Small amount of secretion with blood around it. CHEST: Equal bilaterally, has few rhonchi. CARDIOVASCULAR: Normal ABDOMEN: Benignh. He has PEG tube in place. EXTREMITIES: No edema. IMPRESSION 1. Respiratory failure 2. Status post tracheostomy. 3. Laryngeal carcinoma 4. Decreased mentation 5. History of coronary disease 6. COPD PLAN His overall prognosis is poor. Palliative care has been consulted. We will continue antibiotic. Give him supplemental oxygen to keep the saturation greater than 90 and give him aerosol treatment and IV Solu-Medrol. He is on Eliquis twice a day. Further treatment will depend on the course in the hospital. Thank you, Dr. Bobby Matamoros, for this consultation. MD TERESITA Granda/ /6:08 PM /6:27 PM EZEKIEL
[2017-06-17 19:37] LABS: TRANSFERRIN IRON PROFILE 80 MG/DL (200-360)
[2017-06-17] MEDS: ACETAMINOPHEN 325 MG TAB PO PRN ×2 (19:59→21:45)
[2017-06-17 20:01] LABS: FERRITIN 1211 NG/ML (26-388)
[2017-06-17] MEDS: ALPRAZolam 0.25 MG TAB PO PRN (22:17)
[2017-06-18] VITALS (9 sets, daily range): BP systolic 115–146; BP diastolic 56–73; PULSE 87–139; RESP 18–22; TEMP 97.5–98.2; O2SAT 92–100
[2017-06-18] MEDS: CEFEPIME INJ 2,000 MG in SODIUM CHLORIDE 0.9% INJ 100 ML IV SCH ×2 (01:21→13:54)
[2017-06-18] MEDS: methylPREDNISolone SOD SUCC 40 MG/1 ML VIAL IV PUSH SCH ×3 (01:21→17:59)
[2017-06-18 06:49] LABS: AUTOMATED NEUTROPHIL # 9.1 TH/MM3 (1.8-7.7); BASOPHIL % 0.1 % (0.0-2.0); HEMATOCRIT 29.7 % (39.0-51.0); HEMO FLAGS DIFF FINAL; LYMPH % 2.8 % (9.0-44.0); LYMPHOCYTE # 0.3 TH/MM3 (1.0-4.8); MEAN CELL VOLUME 84.8 FL (80.0-100.0); MEAN CORPUSCULAR HGB CONC 31.9 % (32.0-36.0); MONO % 2.9 % (0.0-8.0); NEUT % 94.2 % (16.0-70.0); PLATELET COUNT 341 TH/MM3 (150-450); RED CELL DISTRIBUTION WIDTH 16.3 % (11.6-17.2); WHITE BLOOD COUNT 9.6 TH/MM3 (4.0-11.0)
--- NOTE | 2017-06-18 07:14 | EKG ---
Date Performed: 06/16/2017 Time Performed: 17:44:24 PTAGE: 66 years EKG: SINUS TACHYCARDIA AK interval .[address]-T change Compared to prior tracing no significant change ABNORMAL ECG PREVIOUS TRACING :06/16/17 @12:16 DOCTOR: Luis A Watson Interpretating Date/Time 06/18/2017 07:14:15
--- NOTE | 2017-06-18 07:14 | EKG ---
Date Performed: 06/16/2017 Time Performed: 12:16:17 PTAGE: 66 years EKG: SINUS TACHYCARDIA NONSPECIFIC T-WAVE ABNORMALITY ABNORMAL RHYTHM ECG MARKED ELECTRICAL BASE LINE INTERFERENCE Compared to prior tracing no significant change other than the baseline electrical abnormality PREVIOUS TRACING : 05/28/2017 02.53 DOCTOR: Luis A Watson Interpretating Date/Time 06/18/2017 07:13:09
[2017-06-18 07:29] LABS: ALKALINE PHOSPHATASE 91 U/L (45-117); ALT (GPT) 16 U/L (12-78); ANION GAP 7 MEQ/L (5-15); AST (GOT) 23 U/L (15-37); BICARBONATE 25.6 MEQ/L (21.0-32.0); BLOOD UREA NITROGEN 44 MG/DL (7-18); CHLORIDE 99 MEQ/L (98-107); GLOMERULAR FILTRATION RATE 41 ML/MIN (>89); MAGNESIUM 2.3 MG/DL (1.5-2.5); POTASSIUM 5.5 MEQ/L (3.5-5.1); SODIUM (NA) 132 MEQ/L (136-145); TOTAL BILIRUBIN ADULT 0.3 MG/DL (0.2-1.0)
[2017-06-18] MEDS: LORATADINE 10 MG TAB G-TUBE SCH (08:00)
[2017-06-18] MEDS: CITALOPRAM HYDROBROMIDE 20 MG TAB PO SCH (08:00)
[2017-06-18] MEDS: LANSOPRAZOLE SOLUTAB 30 MG TAB NG SCH (08:00)
[2017-06-18] MEDS: HYOSCYAMINE 0.125 MG TAB G-TUBE SCH ×2 (08:00→21:40)
[2017-06-18] MEDS: APIXABAN 5 MG TABLET PO SCH ×2 (08:00→21:45)
[2017-06-18] MEDS: QUEtiapine FUMARATE 25 MG TAB PO SCH ×2 (08:00→21:42)
[2017-06-18] MEDS: INSULIN ASPART SUPPLEMENTAL SCALE SQ SCH ×4 (08:00→21:00)
[2017-06-18] MEDS: METOPROLOL TARTRATE 25 MG TAB PEG SCH ×2 (08:00→21:41)
[2017-06-18] MEDS: SODIUM CHLORIDE 0.9% FLUSH 10 ML FLUSH IV FLUSH SCH ×2 (08:01→21:00)
[2017-06-18] MEDS: DOCUSATE SODIUM 50 MG/SENNA 8.6 MG TAB PO SCH ×2 (08:01→21:44)
[2017-06-18] MEDS: ALPRAZolam 0.25 MG TAB PO PRN ×3 (09:37→21:45)
[2017-06-18] MEDS: VANCOMYCIN 1,000 MG/NS 250 ML IV SCH ×2 (12:33)
[2017-06-18] MEDS: POLYETHYLENE GLYCOL 17 GM PKG G-TUBE SCH (12:34)
[2017-06-18] MEDS: ACETAMINOPHEN/HYDROcodone 325 MG/7.5 MG TAB PO PRN ×2 (13:31→21:43)
--- NOTE | 2017-06-18 13:50 | PD.ONC.PN ---
Subjective Subjective Remarks Afebrile overnight. Patient resting in bed. per nursing staff, patient ripped trach tubing off this morning. respiratory therapist in process of replacing upon my arrival. Objective Data Date Time Temp Pulse Resp B/P (MAP) Pulse Ox O2 Delivery O2 Flow Rate FiO2 06/18/17 12:00 98.0 87 18 119/56 (77) 96 06/18/17 10:52 100 T-piece 40 06/18/17 08:00 98.1 125 18 142/70 (94) 100 06/18/17 04:00 97.6 101 18 133/67 (89) 100 06/18/17 00:00 98.2 92 18 115/61 (79) 92 06/17/17 22:30 100 T-piece 50 06/17/17 20:26 89 06/17/17 20:00 Trach Collar 7.00 50 06/17/17 20:00 97.6 84 20 134/55 (81) 100 06/17/17 16:00 97.8 85 20 122/59 (80) 100 06/18/17 06/18/17 06/18/17 07:00 15:00 23:00 Intake Total 100 ml Output Total 400 ml Balance -300 ml Result Diagram: 06/18/1729 06/18/17528 Laboratory Results Laboratory Tests Test 06/17/17 18:18 06/18/17 05:29 Iron Level 14 MCG/DL Total Iron Binding Capacity 112 MCG/DL Percent Iron Saturation 12.5 % Ferritin 1211 NG/ML Vitamin B12 Level 1138 PG/ML White Blood Count 9.6 TH/MM3 Red Blood Count 3.50 MIL/MM3 Hemoglobin 9.5 GM/DL Hematocrit 29.7 % Mean Corpuscular Volume 84.8 FL Mean Corpuscular Hemoglobin 27.0 PG Mean Corpuscular Hemoglobin Concent 31.9 % Red Cell Distribution Width 16.3 % Platelet Count 341 TH/MM3 Mean Platelet Volume 8.1 FL Neutrophils (%) (Auto) 94.2 % Lymphocytes (%) (Auto) 2.8 % Monocytes (%) (Auto) 2.9 % Eosinophils (%) (Auto) 0.0 % Basophils (%) (Auto) 0.1 % Neutrophils # (Auto) 9.1 TH/MM3 Lymphocytes # (Auto) 0.3 TH/MM3 Monocytes # (Auto) 0.3 TH/MM3 Eosinophils # (Auto) 0.0 TH/MM3 Basophils # (Auto) 0.0 TH/MM3 CBC Comment DIFF FINAL Differential Comment Blood Urea Nitrogen 44 MG/DL Creatinine 1.69 MG/DL Random Glucose 137 MG/DL Total Protein 6.0 GM/DL Albumin 1.8 GM/DL Calcium Level 8.3 MG/DL Phosphorus Level 4.3 MG/DL Magnesium Level 2.3 MG/DL Alkaline Phosphatase 91 U/L Aspartate Amino Transf (AST/SGOT) 23 U/L Alanine Aminotransferase (ALT/SGPT) 16 U/L Total Bilirubin 0.3 MG/DL Sodium Level 132 MEQ/L Potassium Level 5.5 MEQ/L Chloride Level 99 MEQ/L Carbon Dioxide Level 25.6 MEQ/L Anion Gap 7 MEQ/L Estimat Glomerular Filtration Rate 41 ML/MIN Random Vancomycin Level 19.7 COMMENT Culture Results Microbiology Date/Time Source Procedure Growth Status 06/16/17 12:25 Blood Peripheral Aerobic Blood Culture - Preliminary NO GROWTH IN 2 DAYS Resulted 06/16/17 12:25 Blood Peripheral Anaerobic Blood Culture - Preliminary NO GROWTH IN 2 DAYS Resulted 06/16/17 12:25 Blood Peripheral Aerobic Blood Culture - Preliminary NO GROWTH IN 2 DAYS Resulted 06/16/17 12:25 Anaerobic Blood Culture - Preliminary Staphylococcus Epidermidis Resulted 06/16/17 14:22 Sputum Endotracheal Gram Stain - Final Complete 06/16/17 14:22 Sputum Culture - Final Pseudomonas Aeruginosa S. Aureus Mrsa Escherichia Coli Group B Beta Strep Complete Administered Medications Medications (Trade) Dose Ordered Sig/Alea Route PRN Reason Start Time Stop Time Status Last Admin Dose Admin Alprazolam (Xanax) 0.25 mg Q8H PRN PO ANXIETY 06/16/17 16:45 06/18/17 10:05 Apixaban (Eliquis) 5 mg BID PO 06/16/17 21:00 06/18/17 08:00 Citalopram Hydrobromide (CeleXA) 20 mg DAILY PO 06/17/17 09:00 06/18/17 08:00 Fentanyl (Duragesic 25 Mcg Patch.72 Hr) 1 patch Q72H T-DERMAL 06/16/17 18:00 06/16/17 18:46 Acetaminophen/ Hydrocodone Bitart ([place] 7.5-325 Mg) 1 tab Q4H PRN PO PAIN SCALE 1 TO 10 06/16/17 16:45 10/18/17 13:31 Lansoprazole (Prevacid Odt) 30 mg DAILY NG 06/16/17 16:45 06/18/17 08:00 Metoprolol Tartrate (Lopressor) 12.5 mg BID PEG 06/16/17 21:00 06/18/17 08:00 Quetiapine Fumarate (SEROquel) 12.5 mg BID PO 06/16/17 21:00 06/18/17 08:00 Loratadine (Claritin) 10 mg DAILY G-TUBE 06/16/17 16:45 06/18/17 08:00 Hyoscyamine Sulfate (Levsin) 0.125 mg BID G-TUBE 06/16/17 21:00 06/18/17 08:00 Acetaminophen (Tylenol) 650 mg Q4H PRN PO TEMP > 100.4 06/16/17 16:45 06/16/17 18:23 Acetaminophen (Tylenol) 650 mg Q6H PRN PO PAIN SCALE 1 TO 2 06/16/17 16:45 06/17/17 19:59 Morphine Sulfate (Morphine Inj) 4 mg Q3H PRN IV PUSH Pain 6-10;if unable to take PO 06/16/17 16:45 06/17/17 20:14 Senna/Docusate Sodium (Genoveva-Colace) 1 tab BID PO 06/16/17 21:00 06/18/17 08:01 Sodium Chloride (NS Flush) 2 ml BID IV FLUSH 06/16/17 21:00 06/18/17 08:01 Cefepime HCl 2000 mg/Sodium Chloride 100 ml @ 200 mls/hr Q12H IV 06/17/17 02:00 06/18/17 01:21 Methylprednisolone Sodium Succinate (SoluMEDROL INJ) 40 mg Q8H IV PUSH 06/16/17 18:00 06/18/17 10:57 Vancomycin HCl 1000 mg/Sodium Chloride 250 ml @ 250 mls/hr Q24H IV 06/18/17 12:00 06/18/17 12:33 Objective Remarks GENERAL: Chronically ill male supine in bed. SKIN: Warm and dry. HEAD: Normocephalic. EYES: No injection or drainage. NECK: Supple, trachea midline. CARDIOVASCULAR: Regular rate and rhythm RESPIRATORY: anterior seo clear. On 40% FiO2 via trach. t-piece GASTROINTESTINAL: Abdomen soft, non-tender, nondistended. EXTREMITIES: No cyanosis NEUROLOGICAL: awake. following commands. Assessment/Plan Problem List: (1) Laryngeal cancer ICD Codes: C32.9 - Malignant neoplasm of larynx, unspecified Status: Chronic Plan: --currently being treated with immunotherapy and receiving IV Keytruda every three weeks. --has high-risk disease. 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 --initially received definitive radiation treatments at the [facility] in [place]. --was not a candidate for chemotherapy or surgery due to his poor performance status and multiple comorbidities. --was subsequently under observation, however, he relapsed in summer. -- We have had several conversations with the patient, his and his daughters regarding palliative care and Hospice in the past, however, they have opted to pursue aggressive treatment. (2) Altered mental status ICD Codes: R41.82 - Altered mental status, unspecified Plan: --appears that he may have had a tracheostomy tube occlusion. had a large mucous plug that was suctioned out. --Hypoxia may have contributed to the mental status. (3) Normocytic anemia ICD Codes: D64.9 - Anemia, unspecified Status: Acute Plan: -- has received iron infusions in the past. --ferritin elevated. --B12 elevated --studies more consistent with anemia of chronic disease. (4) CAD (coronary artery disease) ICD Codes: I25.10 - Coronary artery disease Status: Chronic Plan: --? [id number] GA. Troponins are elevated? --Demand ischemia, would defer further management to cardiology. (5) Acute on chronic kidney failure ICD Codes: N17.9 - [id number] renal failure; N18.9 - Chronic kidney disease, unspecified Status: Chronic Plan: --likely due to prerenal causes. Will continue to monitor. Assessment 66y/o with a history of recurrent laryngeal carcinoma admitted with altered mental status and respiratory distress. History of recurrent laryngeal cancer currently on immunotherapy. History of CAD, status post CABG and stents. h/o DVT and PVD-->on Eliquis COPD. GERD. Hypertension. Hyperlipidemia. Severe peripheral vascular disease. Chronic pain. Polycystic kidney disease. Plan 1. continue steroids, antibiotics 2. appreciate palliative care assistance 3. monitor CBC Attending Statement The exam, history, and the medical decision-making described in the above note were completed with the assistance of the mid-level provider. I reviewed and agree with the findings presented. I attest that I had a [id number] encounter with the patient on the same day, and personally performed and documented my assessment and findings in the medical record. Neeru Pritchett Jun 18, 2017 13:50 Perico Melchor MD Jun 19, 2017 00:42
--- NOTE | 2017-06-18 13:56 | HHI.PR ---
Subjective Remarks Patient is a 66-year-old male with history of laryngeal cancer stage IV, tracheostomy, history of chronic blood clots on Eliquis, coronary artery disease , CABG, COPD, GERD, hypertension, hyperlipidemia, peripheral vascular occlusive disease, diabetes mellitus, chronic pain who presents with acute onset of altered mental status. Per , he was fine until early this morning. This is when he stopped responding to her. Family says last time he was sick, he had MRSA in his sputum. states that she was having to change out his trach multiple times overnight because WAS getting CLOGGED with blood and sputum. Per , he did walk himself to the bathroom early this morning before she noticed the acute change. There is no falls. Patient is unable to provide any history. Last week patient underwent chemotherapy with KEYTRUDA PER DR RIVERA. Patient normally sees Dr. SALAZAR as well as Dr. RIVERA OF ONCOLOGY. 06-17 SEEN BY CARDIOLOGY NOT SEEN BY PULMONARY YET IMPROVED FROM YESTERDAY MORE ALERT WILL GET PALLIATIVE CARE INVOLVED POA WILL BE IN FROM [facility] [place] TOMORROW 06-18 CONTINUE CURRENT TREATMENTS DW RN AND PT AND FULL CODE MORE ALERT 06-18 MUCH MORE ALERT SPEAKING FOLLOWING COMMANDS AT HIS BASELINE NOW NEEDS PT AND OT AND TO MOVE HOPEFULLY HOME IN NEXT 24 TO 48HOURS Objective Vitals Vital Signs Date Time Temp Pulse Resp B/P (MAP) Pulse Ox O2 Delivery O2 Flow Rate FiO2 06/18/17 12:00 98.0 87 18 119/56 (77) 96 06/18/17 10:52 100 T-piece 40 06/18/17 08:00 98.1 125 18 142/70 (94) 100 06/18/17 04:00 97.6 101 18 133/67 (89) 100 06/18/17 00:00 98.2 92 18 115/61 (79) 92 06/17/17 22:30 100 T-piece 50 06/17/17 20:26 89 06/17/17 20:00 Trach Collar 7.00 50 06/17/17 20:00 97.6 84 20 134/55 (81) 100 06/17/17 16:00 97.8 85 20 122/59 (80) 100 I/O 06/17/17 06/17/17 06/17/17 06/18/17 06/18/17 06/18/17 07:00 15:00 23:00 07:00 15:00 23:00 Intake Total 0 ml 250 ml 100 ml Output Total 1000 ml 500 ml 400 ml Balance -1000 ml 250 ml -500 ml -300 ml Intake Oral 0 ml 0 ml IV Total 250 ml 100 ml Output Urine Total 1000 ml 500 ml 400 ml # Bowel Movements 0 0 0 Result Diagram: 06/18/17 0529 06/18/17 0529 Other Results Laboratory Tests Test 06/16/17 12:25 06/16/17 13:40 06/16/17 13:50 06/16/17 15:28 White Blood Count 14.7 TH/MM3 Red Blood Count 3.87 MIL/MM3 Hemoglobin 10.5 GM/DL Hematocrit 33.2 % Mean Corpuscular Volume 85.8 FL Mean Corpuscular Hemoglobin 27.2 PG Mean Corpuscular Hemoglobin Concent 31.7 % Red Cell Distribution Width 16.5 % Platelet Count 404 TH/MM3 Mean Platelet Volume 8.3 FL Neutrophils (%) (Auto) 92.1 % Lymphocytes (%) (Auto) 1.8 % Monocytes (%) (Auto) 5.9 % Eosinophils (%) (Auto) 0.0 % Basophils (%) (Auto) 0.2 % Neutrophils # (Auto) 13.5 TH/MM3 Lymphocytes # (Auto) 0.3 TH/MM3 Monocytes # (Auto) 0.9 TH/MM3 Eosinophils # (Auto) 0.0 TH/MM3 Basophils # (Auto) 0.0 TH/MM3 CBC Comment DIFF FINAL Differential Comment Prothrombin Time 12.3 SEC Prothromb Time International Ratio 1.1 RATIO Activated Partial Thromboplast Time 33.3 SEC Blood Urea Nitrogen 23 MG/DL Creatinine 1.75 MG/DL Random Glucose 186 MG/DL Total Protein 6.7 GM/DL Albumin 2.2 GM/DL Calcium Level 9.3 MG/DL Alkaline Phosphatase 114 U/L Aspartate Amino Transf (AST/SGOT) 16 U/L Alanine Aminotransferase (ALT/SGPT) 13 U/L Total Bilirubin 0.3 MG/DL Sodium Level 126 MEQ/L Potassium Level 5.1 MEQ/L Chloride Level 89 MEQ/L Carbon Dioxide Level 26.5 MEQ/L Anion Gap 11 MEQ/L Estimat Glomerular Filtration Rate 39 ML/MIN Lactic Acid Level 3.4 mmol/L 1.4 mmol/L Total Creatine Kinase 32 U/L Troponin I LESS THAN 0.02 NG/ML Blood Gas Puncture Site RT RADIAL Blood Gas Patient Temperature 98.6 Blood Gas HCO3 25 mmol/L Blood Gas Base Excess -0.6 mmol/L Blood Gas Oxygen Saturation 96 % Arterial Blood pH 7.29 Arterial Blood Partial Pressure CO2 53 mmHg Arterial Blood Partial Pressure O2 106 mmHG Arterial Blood Oxygen Content 13.6 Vol % Arterial Blood Carboxyhemoglobin 1.3 % Arterial Blood Methemoglobin 0.4 % Blood Gas Hemoglobin 9.9 G/DL Oxygen Delivery Device MASK Blood Gas Liter Flow 7 L/M Blood Gas Inspired Oxygen 100 % Urine Color YELLOW Urine Turbidity CLEAR Urine pH 5.5 Urine Specific [place] 1.013 Urine Protein TRACE mg/dL Urine Glucose (UA) NEG mg/dL Urine Ketones NEG mg/dL Urine Occult Blood NEG Urine Nitrite NEG Urine Bilirubin NEG Urine Urobilinogen LESS THAN 2.0 MG/DL Urine Leukocyte Esterase NEG Urine RBC LESS THAN 1 /hpf Urine WBC 1 /hpf Microscopic Urinalysis Comment CATH-CULT NOT IND Test 06/16/17 19:53 06/17/17 02:57 06/17/17 18:18 06/18/17 05:29 Total Creatine Kinase 137 U/L 194 U/L Troponin I 0.56 NG/ML 0.80 NG/ML White Blood Count 10.2 TH/MM3 9.6 TH/MM3 Red Blood Count 3.38 MIL/MM3 3.50 MIL/MM3 Hemoglobin 9.2 GM/DL 9.5 GM/DL Hematocrit 28.6 % 29.7 % Mean Corpuscular Volume 84.8 FL 84.8 FL Mean Corpuscular Hemoglobin 27.3 PG 27.0 PG Mean Corpuscular Hemoglobin Concent 32.1 % 31.9 % Red Cell Distribution Width 16.3 % 16.3 % Platelet Count 280 TH/MM3 341 TH/MM3 Mean Platelet Volume 7.9 FL 8.1 FL Neutrophils (%) (Auto) 93.5 % 94.2 % Lymphocytes (%) (Auto) 3.7 % 2.8 % Monocytes (%) (Auto) 2.7 % 2.9 % Eosinophils (%) (Auto) 0.0 % 0.0 % Basophils (%) (Auto) 0.1 % 0.1 % Neutrophils # (Auto) 9.6 TH/MM3 9.1 TH/MM3 Lymphocytes # (Auto) 0.4 TH/MM3 0.3 TH/MM3 Monocytes # (Auto) 0.3 TH/MM3 0.3 TH/MM3 Eosinophils # (Auto) 0.0 TH/MM3 0.0 TH/MM3 Basophils # (Auto) 0.0 TH/MM3 0.0 TH/MM3 CBC Comment DIFF FINAL DIFF FINAL Differential Comment Blood Urea Nitrogen 27 MG/DL 44 MG/DL Creatinine 1.72 MG/DL 1.69 MG/DL Random Glucose 125 MG/DL 137 MG/DL Total Protein 5.7 GM/DL 6.0 GM/DL Albumin 1.8 GM/DL 1.8 GM/DL Calcium Level 8.2 MG/DL 8.3 MG/DL Phosphorus Level 5.0 MG/DL 4.3 MG/DL Magnesium Level 2.1 MG/DL 2.3 MG/DL Alkaline Phosphatase 96 U/L 91 U/L Aspartate Amino Transf (AST/SGOT) 26 U/L 23 U/L Alanine Aminotransferase (ALT/SGPT) 13 U/L 16 U/L Total Bilirubin 0.4 MG/DL 0.3 MG/DL Sodium Level 131 MEQ/L 132 MEQ/L Potassium Level 5.3 MEQ/L 5.5 MEQ/L Chloride Level 98 MEQ/L 99 MEQ/L Carbon Dioxide Level 25.9 MEQ/L 25.6 MEQ/L Anion Gap 7 MEQ/L 7 MEQ/L Estimat Glomerular Filtration Rate 40 ML/MIN 41 ML/MIN Hemoglobin A1c 6.4 % Free Thyroxine 1.15 NG/DL Thyroid Stimulating Hormone 3rd Gen 0.640 uIU/ML Iron Level 14 MCG/DL Total Iron Binding Capacity 112 MCG/DL Percent Iron Saturation 12.5 % Ferritin 1211 NG/ML Vitamin B12 Level 1138 PG/ML Random Vancomycin Level 19.7 COMMENT Imaging Last Impressions Chest X-Ray 06/17/17 0600 Signed Impressions: Service Date/Time: Saturday, June 17, 2017 04:31 - CONCLUSION: 1. No acute cardiopulmonary disease. Chivo Bates MD Head CT 06/16/17 1220 Signed Impressions: Service Date/Time: Friday, June 16, 2017 12:42 - CONCLUSION: 1. Cortical atrophy. 2. 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 3. No acute intracranial abnormality identified. Dion Coto MD Objective Remarks GENERAL: This is a cachectic appearing chronically ill patient in NO distress SKIN: No rashes, ecchymoses or lesions. Warm and dry HEAD: Atraumatic. Normocephalic. No temporal or scalp tenderness. EYES: Pupils equal round and reactive. Extraocular motions intact. No scleral icterus. No injection or drainage. ENT: Nose without bleeding, purulent drainage or septal hematoma. . Airway patent. Oral mucosa is somewhat moist NECK: Trachea midline. No JVD or lymphadenopathy. Supple, nontender, no meningeal signs. Has a tracheostomy in place CARDIOVASCULAR: Regular rate and rhythm without murmurs, gallops, or rubs. S1 and S2 no S3 or S4 tachycardia RESPIRATORY: Coarse breath sounds with rhonchi is bilaterally. Breath sounds equal bilaterally. No wheezes, rales, GASTROINTESTINAL: Abdomen soft, non-tender, nondistended. No hepato-splenomegaly , or palpable masses. No guarding. PEG tube in place MUSCULOSKELETAL: Extremities without clubbing, cyanosis, or edema. No joint tenderness, effusion, or edema noted. No calf tenderness. Negative Homans sign bilaterally. NEUROLOGICAL: Awake and alert. Cranial nerves II through XII GROSSLY intact. Motor and sensory grossly within normal limits.4 out of 5 muscle strength in all muscle groups. SPEECH IS CLEAR WITH PASSY ROM VALVE GOOD INSIGHT AND JUDGEMENT His mood and behavior is NOW APPROPRIATE Procedures NONE Medications and IVs Current Medications IV Flush (NS Flush) 2 ml UNSCH PRN IV FLUSH FLUSH AFTER USING IV ACCESS; Start 06/16/17 at 12:30; Stop 06/16/17 at 17:44; Status DC Sodium Chloride 1,000 ml @ 1,000 mls/hr Q1H IV Last administered on 12:34; Start 06/16/17 at 12:20; Stop 06/16/17 at 13:19; Status DC Cefepime HCl 1000 mg/Sodium Chloride 100 ml @ 200 mls/hr ONCE ONCE IV Last administered on 06/16/17 13:40; Start 06/16/17 at 13:15; Stop 06/16/17 at 13 :44; Status DC Vancomycin HCl 1050 mg/Sodium Chloride 260.5 ml @ 250 mls/hr Q12H IV Last administered on 06/16/17 14:33; Start 06/16/17 at 13:45; Stop 06/16/17 at 17 :44; Status DC Dextrose (D50w (Vial) Inj) 50 ml UNSCH PRN IV PUSH HYPOGLYCEMIA-SEE COMMENTS; Start 06/16/17 at 16:30 Glucagon (Glucagon Inj) 1 mg UNSCH PRN OTHER HYPOGLYCEMIA-SEE COMMENTS; Start 06/16/17 at 16:30 Insulin Aspart (NovoLOG SUPPLEMENTAL SCALE) 1 ACHS SLIDING SCALE SQ ; Start at 17:00 Alprazolam (Xanax) 0.25 mg Q8H PRN PO ANXIETY Last administered on 06/18/17 10:05; Start 06/16/17 at 16:45 Apixaban (Eliquis) 5 mg BID PO Last administered on 06/18/17 08:00; Start at 21:00 Cilostazol (Pletal) 50 mg BID PO ; Start 06/16/17 at 21:00; Stop 06/16/17 at 23:32; Status DC Citalopram Hydrobromide (CeleXA) 20 mg DAILY PO Last administered on 08:00; Start 06/17/17 at 09:00 Fentanyl (Duragesic 25 Mcg Patch.72 Hr) 1 patch Q72H T-DERMAL Last administered on 06/16/17 18:46; Start 06/16/17 at 18:00 Acetaminophen/ Hydrocodone Bitart ([place] 7.5-325 Mg) 1 tab Q4H PRN PO PAIN SCALE 1 TO 10 Last administered on 06/18/17 13:31; Start 06/16/17 at 16:45 Albuterol/ Ipratropium (Duoneb Neb) 1 ampule Q4HR NEB PRN INH SHORTNESS OF BREATH; Start 06/16/17 at 16:45 Lansoprazole (Prevacid Odt) 30 mg DAILY NG Last administered on 06/18/17 08: 00; Start 06/16/17 at 16:45 Lidocaine HCl (Xylocaine 2% Jelly) 1 applic DAILY TOPICAL ; Start 06/16/17 at 16:45; Stop 06/16/17 at 23:32; Status DC Metoprolol Tartrate (Lopressor) 12.5 mg BID PEG Last administered on 08:00; Start 06/16/17 at 21:00 Ondansetron HCl (Zofran Liq) 4 mg Q4HR PRN G-TUBE NAUSEA OR VOMITING; Start 06/16/17 at 16:45 Polyethylene Glycol (Miralax) 17 gm DAILY PRN G-TUBE CONSTIPATION; Start 06/16 at 16:45; Stop 06/18/17 at 12:35; Status DC Quetiapine Fumarate (SEROquel) 12.5 mg BID PO Last administered on 06/18/17 08:00; Start 06/16/17 at 21:00 Loratadine (Claritin) 10 mg DAILY G-TUBE Last administered on 06/18/17 08:00 ; Start 06/16/17 at 16:45 Hyoscyamine Sulfate (Levsin) 0.125 mg BID G-TUBE Last administered on 08:00; Start 06/16/17 at 21:00 Sodium Chloride 1,000 ml @ 125 mls/hr Q8H IV Last administered on 06/17/17 01:26; Start 06/16/17 at 17:00; Stop 06/17/17 at 04:22; Status DC Sodium Chloride (NS Flush) 2 ml UNSCH PRN IV FLUSH FLUSH AFTER USING IV ACCESS ; Start 06/16/17 at 16:45; Stop 06/16/17 at 16:54; Status DC Sodium Chloride (NS Flush) 2 ml BID IV FLUSH ; Start 06/16/17 at 21:00; Stop 06/16/17 at 21:00; Status DC Acetaminophen (Tylenol) 650 mg Q4H PRN PO TEMP > 100.4 Last administered on 18:23; Start 06/16/17 at 16:45 Ondansetron HCl (Zofran Inj) 4 mg Q6H PRN IVP NAUSEA OR VOMITING; Start at 16:45 Prochlorperazine (Compazine Supp) 25 mg Q12H PRN RECTAL NAUSEA OR VOMITING; Start 06/16/17 at 16:45 Acetaminophen (Tylenol) 650 mg Q6H PRN PO PAIN SCALE 1 TO 2 Last administered on 06/17/17 19:59; Start 06/16/17 at 16:45 Oxycodone/ Acetaminophen (Percocet 5-325 Mg) 1 tab Q6H PRN PO PAIN SCALE 3 TO 5; Start 06/16/17 at 16:45 Oxycodone/ Acetaminophen (Percocet 10-325 Mg) 1 tab Q6H PRN PO PAIN SCALE 6 TO 10; Start 06/16/17 at 16:45 Morphine Sulfate (Morphine Inj) 2 mg Q3H PRN IV PUSH Pain 3-5; if unable to take PO; Start 06/16/17 at 16:45 Morphine Sulfate (Morphine Inj) 4 mg Q3H PRN IV PUSH Pain 6-10;if unable to take PO Last administered on 06/17/17 20:14; Start 06/16/17 at 16:45 Morphine Sulfate (Morphine Inj) 4 mg Q1H PRN IV PUSH PAIN SCALE 7-10 ( INTRACTABLE); Start 06/16/17 at 16:45 Morphine Sulfate (Morphine Inj) 4 mg Q3H PRN IV PUSH BREAKTHROUGH PAIN; Start 06/16/17 at 16:45 Naloxone HCl (Narcan Inj) 0.4 mg UNSCH PRN IV PUSH SEE LABEL COMMENTS; Start 06/16/17 at 16:45 Senna/Docusate Sodium (Genoveva-Colace) 1 tab BID PO Last administered on 08:01; Start 06/16/17 at 21:00 Magnesium Hydroxide (Milk Of Magnesia Liq) 30 ml Q12H PRN PO Mild constipation ; Start 06/16/17 at 16:45 Sennosides (Senokot) 17.2 mg Q12H PRN PO Moderate constipation; Start at 16:45 Bisacodyl (Dulcolax Supp) 10 mg DAILY PRN RECTAL SEVERE CONSITIPATION; Start 06/16/17 at 16:45 Lactulose (Lactulose Liq) 30 ml DAILY PRN PO SEVERE CONSITIPATION; Start 06/16 at 16:45 Sodium Chloride (NS Flush) 2 ml UNSCH PRN IV FLUSH FLUSH AFTER USING IV ACCESS ; Start 06/16/17 at 16:45 Sodium Chloride (NS Flush) 2 ml BID IV FLUSH Last administered on 06/18/17 08 :01; Start 06/16/17 at 21:00 Cefepime HCl 2000 mg/Sodium Chloride 100 ml @ 200 mls/hr Q12H IV Last administered on 06/18/17 01:21; Start 06/17/17 at 02:00 Pharmacy Profile Note 0 ml @ 0 mls/hr UNSCH OTHER ; Start 06/16/17 at 16:45 Albuterol/ Ipratropium (Duoneb Neb) 1 ampule Q4HR NEB PRN INH SHORTNESS OF BREATH; Start 06/16/17 at 16:45; Stop 06/16/17 at 17:56; Status DC Methylprednisolone Sodium Succinate (SoluMEDROL INJ) 40 mg Q8H IV PUSH Last administered on 06/18/17t 10:57; Start 06/16/17 at 18:00 Guaifenesin/ Codeine Phosphate (Robitussin Ac 200-20 Mg/10 ml Liq) 10 ml Q4H PRN PO COUGH; Start 06/16/17 at 16:45 Miscellaneous (Pill Splitter) 1 ea UNSCH PRN OTHER SEE LABEL COMMENTS; Start 06/16/17 at 18:00 Vancomycin HCl 1250 mg/Sodium Chloride 262.5 ml @ 250 mls/hr Q24H IV Last administered on 06/17/17 13:23; Start 06/17/17 at 12:00; Stop 06/18/17 at 09 :05; Status DC Miscellaneous Information SPECIFIC LAB TO BE ... ONCE ONCE .XX ; Start at 11:45; Stop 06/20/17 at 11:46 Vancomycin HCl 1000 mg/Sodium Chloride 250 ml @ 250 mls/hr Q24H IV Last administered on 06/18/17 12:33; Start 06/18/17 at 12:00 Polyethylene Glycol (Miralax) 17 gm DAILY G-TUBE Last administered on 12:34; Start 06/18/17 at 12:34 Urinary Catheter: No A/P Problem List: (1) Tracheostomy dependent ICD Code: Z93.0 - Tracheostomy status Status: Acute (2) Laryngeal cancer ICD Code: C32.9 - Malignant neoplasm of larynx, unspecified Status: Chronic (3) Chronic respiratory failure ICD Code: J96.10 - Chronic respiratory failure, unspecified whether with hypoxia or hypercapnia Status: Acute (4) Acute respiratory failure ICD Code: J96.00 - Acute respiratory failure, unspecified whether with hypoxia or hypercapnia Status: Resolved (5) Aspiration pneumonia ICD Code: J69.0 - Pneumonitis due to inhalation of food and vomit Status: Acute (6) Acute respiratory failure with hypoxemia ICD Code: J96.01 - Acute respiratory failure with hypoxemia Status: Acute (7) SIRS due to infectious process without acute organ dysfunction ICD Code: A41.9 - Sepsis, unspecified organism Status: Acute (8) Shortness of breath ICD Code: R06.02 - Shortness of breath Status: Acute (9) Failure to thrive in adult ICD Code: R62.7 - Adult failure to thrive Status: Chronic (10) COPD (chronic obstructive pulmonary disease) ICD Code: J44.9 - Chronic obstructive pulmonary disease, unspecified Status: Chronic (11) Sepsis ICD Code: A41.9 - Sepsis, unspecified organism Status: Acute (12) Confusion ICD Code: R41.0 - Disorientation, unspecified Status: Acute (13) Weakness ICD Code: R53.1 - Weakness Status: Acute Assessment and Plan Respiratory failure with worsening respiratory status. Continue on antibiotics with duo nebs vancomycin and cefepime continue on guaifenesin continue on oxygen consult pulmonary medicine Worsening pulmonary status will give aggressive pulmonary toilet continue on steroids- HAS IMPROVED IMMENSELY AWAKE ALERT AND ORIENTED FOLLOWING COMMANDS- TUBE FEEDS RESTARTED Altered mental status suspect secondary to infection- TOTALLY RESOLVED- Laryngeal cancer status post tracheostomy follows [facility] last week Chronic DVT continue on Eliquis- CONTINUE SAME Dysphagia continue on tube feeds- RESTARTED AND TOLERATING WELL Polycystic kidney disease with chronic creatinine continue on fluids=- MILD IMPROVEMENT WITH FLUIDS POSITIVE TROPONINS WITH SUSPECTED DEMAND ISCHEMIA- NO INTERVENTIONS PER CARDIOLOGY- CONTINUE BETA JESSICA Worsening pulmonary status possible sepsis--RESOLVED MUCH IMPROVED Tachycardia continue on his beta jessica IMPROVED Diabetes mellitus continue on sliding scale with Accu-Cheks before meals and at bedtime-MONITOR GERD continue on PPI Peripheral vascular occlusive disease continue on his chronic anticoagulation WITH ELIQUIS Chronic pain continue on pain control have IV pain medications available Prognosis is quite guarded. Family even discussed the possibility of going to hospice inpatient but is not ready for this at this time yet Daughter and POA who is another daughter who was in attendance over her phone and at bedside Discussed with them PATIENT HAS REBOUNDED VERY WELL FROM THE FIRST DAY- ALMOST BACK TO HIS BASELINE PALLIATIVE CARE CONSULT SEEN BY DR NICOLE RODRÍGUEZ LABS GREATLY IMPROVED DC IN NEXT 24 TO 48 HOURS Discharge Planning HOME NEXT 24 TO 48 HOURS Problem Qualifiers (1) Sepsis: Qualified Codes: A41.9 - Sepsis, unspecified organism Bobby Matamoros DO Jun 18, 2017 13:56
--- NOTE | 2017-06-18 14:57 | HHI.HCPN ---
Reason for visit a. To assist with evaluation and management of symptoms including: dyspnea, debility, malnutrition, pain b. To assist medical decision maker(s) with: better understanding of current medical conditions; weighing benefits/burdens of medical treatment options; making medical treatment decisions. . Subjective/Interval History Mr. Briones is a 66-year-old man who presented to [facility] on 06/16/2017 for evaluation of altered mental status and respiratory distress. He was subsequently admitted for management of sepsis. Patient has a history of recurrent laryngeal cancer s/p radiation. Patient is not a candidate for chemotherapy or surgery due to his poor performance status and multiple comorbid conditions; he is currently on immunotherapy and receives IV Keytruda q3 weeks. Dr. Melchor is is oncologist. Patient seen and assessed in room 1433. Patient presents sitting upright. He is more much more alert today. Hemodynamically stable today. Afebrile. Leukocytosis has resolved. Blood culture: + Staph. Sputum culture growing multiple organisms (Pseudomonas, MRSA, Escherichia coli), suspect patient is chronically colonized. Infectious disease consult pending. Much more alert today, returning to baseline. Able to answer questions, follow simple commands. Tolerating tube feeding. Worsening performance status, overall poor prognosis. Per notes, the patient/family has discussed hospice but feel they are not ready at this time. Palliative care with patient's daughter ( Ledy) yesterday. She stated she sees her father declining, she and her sister (Antonietta) have been discussing transitioning to hospice. They want to balance aggressive goals with preservation of quality of life. They would like to meet with hospice after Antonietta arrives from [place] [facility]; tentative family meeting on 06/19/2017. . Advance Directives Health Care Surrogate: Copy in medical record Advance Directive Specifics Date completed: 02/22/2017 . Health Care Surrogate(s): Patient has designated Antonietta Yuan as his health care surrogate decision maker. Ledy Fortune is designated as the alternate health care surrogate. . Documented care wishes: Completed health care surrogate designation form is accessible and the patient' s EMR. No other known written advanced directives has been completed. . Objective Vital Signs Date Time Temp Pulse Resp B/P (MAP) Pulse Ox O2 Delivery O2 Flow Rate FiO2 06/18/17 12:00 98.0 87 18 119/56 (77) 96 06/18/17 10:52 100 T-piece 40 06/18/17 08:00 98.1 125 18 142/70 (94) 100 06/18/17 04:00 97.6 101 18 133/67 (89) 100 06/18/17 00:00 98.2 92 18 115/61 (79) 92 06/17/17 22:30 100 T-piece 50 06/17/17 20:26 89 06/17/17 20:00 Trach Collar 7.00 50 06/17/17 20:00 97.6 84 20 134/55 (81) 100 06/17/17 16:00 97.8 85 20 122/59 (80) 100 Intake & Output 06/18/17 06/18/17 07:00 19:00 Intake Total 100 ml Output Total 400 ml Balance -300 ml Intake Oral 0 ml IV Total 100 ml Output Urine Total 400 ml # Bowel Movements 0 . Physical Exam CONSTITUTIONAL/GENERAL: This is an adequately nourished patient, in no apparent distress. TUBES/LINES/DRAINS: Tracheostomy, trach collar, PIV, panic SKIN: Ecchymoses on upper extremities. Skin temperature appropriate. Not diaphoretic. HEAD: Atraumatic. Normocephalic. EYES: Pupils equal and round. No scleral icterus. No injection or drainage. ENT: Hearing grossly normal. Nose without bleeding or purulent drainage. NECK: Status post tracheostomy CARDIOVASCULAR: Regular rate and rhythm without murmurs, gallops, or rubs. No JVD. RESPIRATORY/CHEST: Respirations unlabored. Breath sounds diminished bilaterally. No accessory muscle use. GASTROINTESTINAL: Abdomen soft, non-tender, nondistended. No guarding. Bowel sounds present. GENITOURINARY: Without palpable bladder distension. . MUSCULOSKELETAL: Extremities without clubbing, cyanosis, or edema. No mottling or clubbing. LYMPHATICS: No palpable cervical or supraclavicular adenopathy. NEUROLOGICAL: Awake and alert. Responds to questions, follows simple commands. PSYCHIATRIC: No obvious anxiety/depression. no apparent hallucinations or other psychotic thought process. . Diagnostic Tests Laboratory Laboratory Tests Test 06/16/17 12:25 06/16/17 13:40 06/16/17 13:50 06/16/17 15:28 White Blood Count 14.7 TH/MM3 (4.0-11.0) Red Blood Count 3.87 MIL/MM3 (4.50-5.90) Hemoglobin 10.5 GM/DL (13.0-17.0) Hematocrit 33.2 % (39.0-51.0) Mean Corpuscular Volume 85.8 FL (80.0-100.0) Mean Corpuscular Hemoglobin 27.2 PG (27.0-34.0) Mean Corpuscular Hemoglobin Concent 31.7 % (32.0-36.0) Red Cell Distribution Width 16.5 % (11.6-17.2) Platelet Count 404 TH/MM3 (150-450) Mean Platelet Volume 8.3 FL (7.0-11.0) Neutrophils (%) (Auto) 92.1 % (16.0-70.0) Lymphocytes (%) (Auto) 1.8 % (9.0-44.0) Monocytes (%) (Auto) 5.9 % (0.0-8.0) Eosinophils (%) (Auto) 0.0 % (0.0-4.0) Basophils (%) (Auto) 0.2 % (0.0-2.0) Neutrophils # (Auto) 13.5 TH/MM3 (1.8-7.7) Lymphocytes # (Auto) 0.3 TH/MM3 (1.0-4.8) Monocytes # (Auto) 0.9 TH/MM3 (0-0.9) Eosinophils # (Auto) 0.0 TH/MM3 (0-0.4) Basophils # (Auto) 0.0 TH/MM3 (0-0.2) CBC Comment DIFF FINAL Differential Comment Prothrombin Time 12.3 SEC (9.8-11.6) Prothromb Time International Ratio 1.1 RATIO Activated Partial Thromboplast Time 33.3 SEC (24.3-30.1) Blood Urea Nitrogen 23 MG/DL (7-18) Creatinine 1.75 MG/DL (0.60-1.30) Random Glucose 186 MG/DL (74-106) Total Protein 6.7 GM/DL (6.4-8.2) Albumin 2.2 GM/DL (3.4-5.0) Calcium Level 9.3 MG/DL (8.5-10.1) Alkaline Phosphatase 114 U/L (45-117) Aspartate Amino Transf (AST/SGOT) 16 U/L (15-37) Alanine Aminotransferase (ALT/SGPT) 13 U/L (12-78) Total Bilirubin 0.3 MG/DL (0.2-1.0) Sodium Level 126 MEQ/L (136-145) Potassium Level 5.1 MEQ/L (3.5-5.1) Chloride Level 89 MEQ/L (98-107) Carbon Dioxide Level 26.5 MEQ/L (21.0-32.0) Anion Gap 11 MEQ/L (5-15) Estimat Glomerular Filtration Rate 39 ML/MIN (>89) Lactic Acid Level 3.4 mmol/L (0.4-2.0) 1.4 mmol/L (0.4-2.0) Total Creatine Kinase 32 U/L (39-308) Troponin I LESS THAN 0.02 NG/ML Blood Gas Puncture Site RT RADIAL Blood Gas Patient Temperature 98.6 Blood Gas HCO3 25 mmol/L (22-26) Blood Gas Base Excess -0.6 mmol/L (-2-2) Blood Gas Oxygen Saturation 96 % (90-100) Arterial Blood pH 7.29 (7.380-7.420) Arterial Blood Partial Pressure CO2 53 mmHg (38-42) Arterial Blood Partial Pressure O2 106 mmHG (61-120) Arterial Blood Oxygen Content 13.6 Vol % (12.0-20.0) Arterial Blood Carboxyhemoglobin 1.3 % (0-4) Arterial Blood Methemoglobin 0.4 % (0-2) Blood Gas Hemoglobin 9.9 G/DL (12.0-16.0) Oxygen Delivery Device MASK Blood Gas Liter Flow 7 L/M Blood Gas Inspired Oxygen 100 % Urine Color YELLOW (YELLW/STRAW) Urine Turbidity CLEAR (CLEAR) Urine pH 5.5 (5.0-8.5) Urine Specific [place] 1.013 (1.002-1.035) Urine Protein TRACE mg/dL (NEG-TRACE) Urine Glucose (UA) NEG mg/dL (NEG) Urine Ketones NEG mg/dL (NEG) Urine Occult Blood NEG (NEG) Urine Nitrite NEG (NEG) Urine Bilirubin NEG (NEG) Urine Urobilinogen LESS THAN 2.0 MG/DL (LESS Urine Leukocyte Esterase NEG (NEG) Urine RBC LESS THAN 1 /hpf (0-3) Urine WBC 1 /hpf (0-5) Microscopic Urinalysis Comment CATH-CULT NOT IND Test 06/16/17 19:53 06/17/17 02:57 06/17/17 18:18 06/18/17 05:29 Total Creatine Kinase 137 U/L (39-308) 194 U/L (39-308) Troponin I 0.56 NG/ML (0.02-0.05) 0.80 NG/ML (0.02-0.05) White Blood Count 10.2 TH/MM3 (4.0-11.0) 9.6 TH/MM3 (4.0-11.0) Red Blood Count 3.38 MIL/MM3 (4.50-5.90) 3.50 MIL/MM3 (4.50-5.90) Hemoglobin 9.2 GM/DL (13.0-17.0) 9.5 GM/DL (13.0-17.0) Hematocrit 28.6 % (39.0-51.0) 29.7 % (39.0-51.0) Mean Corpuscular Volume 84.8 FL (80.0-100.0) 84.8 FL (80.0-100.0) Mean Corpuscular Hemoglobin 27.3 PG (27.0-34.0) 27.0 PG (27.0-34.0) Mean Corpuscular Hemoglobin Concent 32.1 % (32.0-36.0) 31.9 % (32.0-36.0) Red Cell Distribution Width 16.3 % (11.6-17.2) 16.3 % (11.6-17.2) Platelet Count 280 TH/MM3 (150-450) 341 TH/MM3 (150-450) Mean Platelet Volume 7.9 FL (7.0-11.0) 8.1 FL (7.0-11.0) Neutrophils (%) (Auto) 93.5 % (16.0-70.0) 94.2 % (16.0-70.0) Lymphocytes (%) (Auto) 3.7 % (9.0-44.0) 2.8 % (9.0-44.0) Monocytes (%) (Auto) 2.7 % (0.0-8.0) 2.9 % (0.0-8.0) Eosinophils (%) (Auto) 0.0 % (0.0-4.0) 0.0 % (0.0-4.0) Basophils (%) (Auto) 0.1 % (0.0-2.0) 0.1 % (0.0-2.0) Neutrophils # (Auto) 9.6 TH/MM3 (1.8-7.7) 9.1 TH/MM3 (1.8-7.7) Lymphocytes # (Auto) 0.4 TH/MM3 (1.0-4.8) 0.3 TH/MM3 (1.0-4.8) Monocytes # (Auto) 0.3 TH/MM3 (0-0.9) 0.3 TH/MM3 (0-0.9) Eosinophils # (Auto) 0.0 TH/MM3 (0-0.4) 0.0 TH/MM3 (0-0.4) Basophils # (Auto) 0.0 TH/MM3 (0-0.2) 0.0 TH/MM3 (0-0.2) CBC Comment DIFF FINAL DIFF FINAL Differential Comment Blood Urea Nitrogen 27 MG/DL (7-18) 44 MG/DL (7-18) Creatinine 1.72 MG/DL (0.60-1.30) 1.69 MG/DL (0.60-1.30) Random Glucose 125 MG/DL (74-106) 137 MG/DL (74-106) Total Protein 5.7 GM/DL (6.4-8.2) 6.0 GM/DL (6.4-8.2) Albumin 1.8 GM/DL (3.4-5.0) 1.8 GM/DL (3.4-5.0) Calcium Level 8.2 MG/DL (8.5-10.1) 8.3 MG/DL (8.5-10.1) Phosphorus Level 5.0 MG/DL (2.5-4.9) 4.3 MG/DL (2.5-4.9) Magnesium Level 2.1 MG/DL (1.5-2.5) 2.3 MG/DL (1.5-2.5) Alkaline Phosphatase 96 U/L (45-117) 91 U/L (45-117) Aspartate Amino Transf (AST/SGOT) 26 U/L (15-37) 23 U/L (15-37) Alanine Aminotransferase (ALT/SGPT) 13 U/L (12-78) 16 U/L (12-78) Total Bilirubin 0.4 MG/DL (0.2-1.0) 0.3 MG/DL (0.2-1.0) Sodium Level 131 MEQ/L (136-145) 132 MEQ/L (136-145) Potassium Level 5.3 MEQ/L (3.5-5.1) 5.5 MEQ/L (3.5-5.1) Chloride Level 98 MEQ/L (98-107) 99 MEQ/L (98-107) Carbon Dioxide Level 25.9 MEQ/L (21.0-32.0) 25.6 MEQ/L (21.0-32.0) Anion Gap 7 MEQ/L (5-15) 7 MEQ/L (5-15) Estimat Glomerular Filtration Rate 40 ML/MIN (>89) 41 ML/MIN (>89) Hemoglobin A1c 6.4 % (4.3-6.0) Free Thyroxine 1.15 NG/DL (0.76-1.46) Thyroid Stimulating Hormone 3rd Gen 0.640 uIU/ML (0.358-3.740) Iron Level 14 MCG/DL (65-175) Total Iron Binding Capacity 112 MCG/DL (250-450) Percent Iron Saturation 12.5 % (20-50) Ferritin 1211 NG/ML (26-388) Vitamin B12 Level 1138 PG/ML (193-986) Random Vancomycin Level 19.7 COMMENT . Result Diagram: 06/18/17 0529 06/18/1729 Microbiology Microbiology Date/Time Source Procedure Growth Status 06/16/17 12:25 Blood Peripheral Aerobic Blood Culture - Preliminary NO GROWTH IN 2 DAYS Resulted 06/16/17 12:25 Blood Peripheral Anaerobic Blood Culture - Preliminary NO GROWTH IN 2 DAYS Resulted 06/16/17 12:25 Blood Peripheral Aerobic Blood Culture - Preliminary NO GROWTH IN 2 DAYS Resulted 06/16/17 12:25 Anaerobic Blood Culture - Preliminary Staphylococcus Epidermidis Resulted 06/16/17 14:22 Sputum Endotracheal Gram Stain - Final Complete 06/16/17 14:22 Sputum Culture - Final Pseudomonas Aeruginosa S. Aureus Mrsa Escherichia Coli Group B Beta Strep Complete Imaging Last 72 hours Impressions Chest X-Ray 06/17/17 0600 Signed Impressions: Service Date/Time: Saturday, June 17, 2017 04:31 - CONCLUSION: 1. No acute cardiopulmonary disease. Chivo Bates MD Head CT 06/16/17 1220 Signed Impressions: Service Date/Time: Friday, June 16, 2017 12:42 - CONCLUSION: 1. Cortical atrophy. 2. 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 3. No acute intracranial abnormality identified. Dion Coto MD Chest X-Ray 06/16/17 1220 Signed Impressions: Service Date/Time: Friday, June 16, 2017 12:32 - CONCLUSION: 1. Chronic interstitial changes. 2. The exam is significantly improved when compared to prior. 3. Support equipment in good position. Dion Coto MD . Assessment and Plan Disease Oriented Problem List: (1) COPD (chronic obstructive pulmonary disease) (2) Tracheostomy dependent (3) Carotid artery disease (4) Diabetes mellitus (5) Elevated troponin I level (6) PVD (peripheral vascular disease) (7) ROSALINO (acute kidney injury) (8) Hyperlipidemia (9) Hypertension (10) Congestive heart failure (CHF) (11) Acute respiratory failure (12) Chronic respiratory failure (13) Laryngeal cancer (14) SIRS due to infectious process without acute organ dysfunction (15) Sepsis Symptom Scale: (1) Debility (2) Malnutrition Pertinent Non-Medical Issues Psychosocial: Patient was born and raised in [place]. 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 The patient has lived with his in [place] several years. He has no biological children but has 4 stepdaughters. Antonietta Yuan (daughter) is primary health care surrogate. She is a nurse working in [employer]. Triny Fortune (daughter), works at [employer]. Spiritual: No hoahaoism affiliation Legal: Antonietta Monroeabria (primary HCS) [phone] or [phone]. Triny Fortune (alternate HCS): [phone] or [phone] or [phone] Ethical issues impacting care: No known ethical issues impacting care at this time. . Important Contacts Antonietta Monroeabria. (primary HCS): [phone] or [phone] Triny Fortune (alternate [facility] [phone]. Work: or . 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 Pt also have underlying CAD, CKD, occluded right carotid artery, deconditioning, malnutrition, pneumonia, and confusion at times. Patient has been hospitalized multiple times since September, secondary to respiratory distress, aspiration, pneumonia and sepsis. Would be appropriate fo hospice if goals of care were to transition to comfort measures only. . Code Status: Full Code Plan * FULL CODE * Decision-making: Unable to access patient's insight and judgement related to patient's clinical condition. Patient has designated Antonietta Yuan as his health care surrogate decision maker. Ledy Fortune is designated as the alternate health care surrogate. Completed forms are accessible and the patient 's EMR. * GOALS AGGRESSIVE pending tentative family meeting 06/19/17 * Worsening performance status, overall poor prognosis. Per notes, the patient/ family has discussed hospice but feel they are not ready at this time. Palliative care with patient's daughter (Ledy) yesterday. She stated she sees her father declining, she and her sister (Antonietta) have been discussing transitioning to hospice. They want to balance aggressive goals with preservation of quality of life. They would like to meet with hospice after Antonietta arrives from [place] [facility]; tentative family meeting on 06/19/2017. Patient would be appropriate for hospice if goals of care were to transition to comfort measures only. * Symptom management-debility: Patient with a history of laryngeal cancer diagnosed in 2016 s/p tracheostomy and PEG tube placement. Patient has been hospitalized multiple times since September, secondary to respiratory distress, aspiration, pneumonia and sepsis. Patient is severely deconditioned, increasingly fatigued with episodes of confusion/ anxiety. * Symptom management - pain: Pain is likely secondary to malignancy. Currently pain controlled with fentanyl Duragesic patch 25 g every 72 hours. PRN [place], Percocet and IV morphine are also available. It appears pain was being managed at home with Fentanyl Duragesic patch and PRN [place]. * Symptom management - malnutrition: Status post PEG tube placement. Patient has lost approximately 20 kg in the past 12 months. BMI: 18.3. Total protein: 5.7, albumin 1.8. Dietary was consulted for recommendations. * Palliative care will continue to follow this patient throughout his hospitalization to establish trust, assist with symptom management and clarification of medical treatment goals. . Attestation To help prompt me to consider important information that might be impacting today's encounter and assessment, information from prior notes written by myself or my colleagues may have been "brought forward" into today's note. My signature on this note, however, is an attestation that I personally performed the exam, history, and/or decision-making noted today, and, unless otherwise indicated, the interactions with patient, family, and staff as well as the review of records all occurred today. I also attest that the listed assessment and stated plan reflect my best clinical judgment today based on the combination of historical information, prior notes, and today's exam/ interactions. When time spent is documented, it refers only to time spent today by the signer, or if indicated, combined time spent today by collaborating physician/nurse practitioner. . Pati Oneal Jun 18, 2017 14:57
--- NOTE | 2017-06-18 17:46 | HHI.PR ---
Subjective Remarks 66 YOWM with larungeal ca, Trach,AMS mental status improved Alert, awake, follows commands On PMV Small amount og trach secretions. Objective Vital Signs Vital Signs Date Time Temp Pulse Resp B/P (MAP) Pulse Ox O2 Delivery O2 Flow Rate FiO2 06/18/17 17:41 96 21 06/18/17 12:00 98.0 87 18 119/56 (77) 96 06/18/17 10:52 100 T-piece 40 06/18/17 08:00 98.1 125 18 142/70 (94) 100 06/18/17 04:00 97.6 101 18 133/67 (89) 100 06/18/17 00:00 98.2 92 18 115/61 (79) 92 06/17/17 22:30 100 T-piece 50 06/17/17 20:26 89 06/17/17 20:00 Trach Collar 7.00 50 06/17/17 20:00 97.6 84 20 134/55 (81) 100 I/O 06/17/17 06/17/17 06/17/17 06/18/17 06/18/17 06/18/17 07:00 15:00 23:00 07:00 15:00 23:00 Intake Total 0 ml 250 ml 100 ml Output Total 1000 ml 500 ml 400 ml Balance -1000 ml 250 ml -500 ml -300 ml Intake Oral 0 ml 0 ml IV Total 250 ml 100 ml Output Urine Total 1000 ml 500 ml 400 ml Bladder Scan Volume Amount 138 ml # Bowel Movements 0 0 0 Result Diagram: 06/18/1752806/18/17528 Objective Remarks GENERAL: MBMN WM, mild sob SKIN: Warm and dry. HEAD: Normocephalic. EYES: No scleral icterus. No injection or drainage. NECK: Supple, trachea midline. No JVD or lymphadenopathy. has trach CARDIOVASCULAR: Regular rate and rhythm without murmurs, gallops, or rubs. RESPIRATORY: Breath sounds equal bilaterally. No accessory muscle use. GASTROINTESTINAL: Abdomen soft, non-tender, nondistended. has PEG> MUSCULOSKELETAL: No cyanosis, or edema. BACK: Nontender without obvious deformity. No CVA tenderness. A/P Assessment and Plan Resp insuff improved COPD Ca larynx, s/p Trach Hemoptysis resolved CAD PLAN: Trach collar, PMV IV Solumedrol Aerosol nebs Cont Abx Supplement 02 TF Real Coffey MD Jun 18, 2017 17:46
[2017-06-19] VITALS (10 sets, daily range): BP systolic 129–147; BP diastolic 60–85; PULSE 79–110; RESP 18–20; TEMP 97.4–98.7; O2SAT 96–100
[2017-06-19] MEDS: CEFEPIME INJ 2,000 MG in SODIUM CHLORIDE 0.9% INJ 100 ML IV SCH ×3 (03:03→15:26)
[2017-06-19] MEDS: methylPREDNISolone SOD SUCC 40 MG/1 ML VIAL IV PUSH SCH ×3 (03:03→18:04)
[2017-06-19 04:25] LABS: AUTOMATED NEUTROPHIL # 7.2 TH/MM3 (1.8-7.7); BASOPHIL % 0.2 % (0.0-2.0); HEMATOCRIT 28.1 % (39.0-51.0); HEMO FLAGS DIFF FINAL; LYMPH % 3.6 % (9.0-44.0); LYMPHOCYTE # 0.3 TH/MM3 (1.0-4.8); MEAN CELL VOLUME 83.9 FL (80.0-100.0); MEAN CORPUSCULAR HGB CONC 33.4 % (32.0-36.0); MONO % 2.8 % (0.0-8.0); NEUT % 93.4 % (16.0-70.0); PLATELET COUNT 328 TH/MM3 (150-450); RED BLOOD COUNT 3.35 MIL/MM3 (4.50-5.90); RED CELL DISTRIBUTION WIDTH 16.4 % (11.6-17.2); WHITE BLOOD COUNT 7.7 TH/MM3 (4.0-11.0)
[2017-06-19] MEDS: ACETAMINOPHEN/HYDROcodone 325 MG/7.5 MG TAB PO PRN ×2 (04:31→22:44)
[2017-06-19 05:05] LABS: ALKALINE PHOSPHATASE 86 U/L (45-117); ALT (GPT) 18 U/L (12-78); ANION GAP 8 MEQ/L (5-15); AST (GOT) 19 U/L (15-37); BLOOD UREA NITROGEN 56 MG/DL (7-18); CHLORIDE 100 MEQ/L (98-107); GLOMERULAR FILTRATION RATE 47 ML/MIN (>89); MAGNESIUM 2.4 MG/DL (1.5-2.5); POTASSIUM 5.1 MEQ/L (3.5-5.1); SODIUM (NA) 134 MEQ/L (136-145); TOTAL BILIRUBIN ADULT 0.3 MG/DL (0.2-1.0)
[2017-06-19] MEDS: CITALOPRAM HYDROBROMIDE 20 MG TAB PO SCH (07:30)
[2017-06-19] MEDS: LORATADINE 10 MG TAB G-TUBE SCH (07:31)
[2017-06-19] MEDS: APIXABAN 5 MG TABLET PO SCH (07:31)
[2017-06-19] MEDS: QUEtiapine FUMARATE 25 MG TAB PO SCH ×2 (07:31→22:46)
[2017-06-19] MEDS: LANSOPRAZOLE SOLUTAB 30 MG TAB NG SCH (07:31)
[2017-06-19] MEDS: METOPROLOL TARTRATE 25 MG TAB PEG SCH ×2 (07:32→22:45)
[2017-06-19] MEDS: HYOSCYAMINE 0.125 MG TAB G-TUBE SCH ×2 (07:32→22:44)
[2017-06-19] MEDS: ALPRAZolam 0.25 MG TAB PO PRN ×2 (07:32→15:26)
[2017-06-19] MEDS: INSULIN ASPART SUPPLEMENTAL SCALE SQ SCH ×4 (08:00→22:43)
[2017-06-19] MEDS: SODIUM CHLORIDE 0.9% FLUSH 10 ML FLUSH IV FLUSH SCH ×2 (09:00→22:46)
[2017-06-19] MEDS: DOCUSATE SODIUM 50 MG/SENNA 8.6 MG TAB PO SCH ×2 (09:00→22:45)
[2017-06-19] MEDS: POLYETHYLENE GLYCOL 17 GM PKG G-TUBE SCH (09:00)
[2017-06-19] MEDS: oxyCODONE/ACETAMINOPHEN 10 MG/325 MG TAB PO PRN ×2 (10:42→18:04)
--- NOTE | 2017-06-19 11:24 | HHI.HCPN ---
Reason for visit a. To assist with evaluation and management of symptoms including: dyspnea, debility, malnutrition, pain b. To assist medical decision maker(s) with: better understanding of current medical conditions; weighing benefits/burdens of medical treatment options; making medical treatment decisions. . Subjective/Interval History Mr. Briones is a 66-year-old man who presented to [facility] ED on 06/16/2017 for evaluation of altered mental status and respiratory distress. He was subsequently admitted for management of sepsis. Patient has a history of recurrent laryngeal cancer s/p radiation. Patient is not a candidate for chemotherapy or surgery due to his poor performance status and multiple comorbid conditions; he is currently on immunotherapy and receives IV Keytruda q3 weeks. Dr. Melchor is is oncologist. Patient seen and assessed in room 1433. Also present patient's and step- daughter (Mike). Patient is alert. Able to answer questions with PMV, follows commands. Afebrile. Leukocytosis has resolved. Follow-up chest x-ray on showed no acute cardiopulmonary disease. Blood culture: + Staph. Sputum culture growing multiple organisms (Pseudomonas, MRSA, Escherichia coli), suspect patient is chronically colonized. Remains on Cefepime and Vancomycin. Infectious disease consult pending. Patient observed grimacing on exam, reporting severe pain in his back. Patient has orders for Fentanyl Duragesic patch 25g every 72 hours and multiple PRN medications. 24-hour PRN totals: La Salle 7.5-325mg x 3 and Percocet 10-325mg x 1. LBM: 06/19/2017. Worsening performance status, overall poor prognosis. Patient's requested a referral be made to [facility] inpatient rehabilitation, but the patient' s step-daughter is now saying the patient wants to return home as soon as possible. Per notes, the patient/family has discussed hospice but feel they are not ready at this time. Patient indicates today the he wants to continue immunotherapy and IV Keytruda; he states he isn't ready to "give up" yet. . Family/friend interactions Patient's and step-daughter were at bedside. Patient's step-daughter/HCS ( Antonietta) is in town from [place]. Patient and his verbalize ongoing aggressive goals. Patient's step-daughter states she and her sister have been talking about "when it will be time" to transition to comfort focused goals; they will continue to support the patient's goals at this time. . Advance Directives Health Care Surrogate: Copy in medical record Advance Directive Specifics Date completed: 02/22/2017 . Health Care Surrogate(s): Patient has designated Antonietta Yuan as his health care surrogate decision maker. Ledy Fortune is designated as the alternate health care surrogate. . Documented care wishes: Completed health care surrogate designation form is accessible and the patient' s EMR. No other known written advanced directives has been completed. . Objective Vital Signs Date Time Temp Pulse Resp B/P (MAP) Pulse Ox O2 Delivery O2 Flow Rate FiO2 06/19/17 09:32 97 Trach Collar 06/19/17 08:00 98.3 110 18 142/72 (95) 97 06/19/17 04:35 97 Room Air Trach Collar 06/19/17 04:00 98.0 92 20 143/74 (97) 96 06/19/17 00:10 Room Air Trach Collar 06/19/17 00:00 97.4 79 20 129/67 (87) 96 06/18/17 20:03 139 06/18/17 20:00 97.5 112 22 146/73 (97) 97 06/18/17 20:00 Room Air Trach Collar 06/18/17 17:41 96 21 06/18/17 16:00 97.5 97 18 145/65 (91) 97 06/18/17 12:00 98.0 87 18 119/56 (77) 96 Intake & Output 06/19/17 06/19/17 07:00 19:00 Intake Total 1260 ml Output Total 400 ml Balance 860 ml IV Total 100 ml Tube Feeding 560 ml Other 600 ml Output Urine Total 400 ml # Voids 4 # Bowel Movements 2 Physical Exam CONSTITUTIONAL/GENERAL: This is an adequately nourished patient, in no apparent distress. TUBES/LINES/DRAINS: Tracheostomy, trach collar, PIV, panic SKIN: Ecchymoses on upper extremities. Skin temperature appropriate. Not diaphoretic. HEAD: Atraumatic. Normocephalic. EYES: Pupils equal and round. No scleral icterus. No injection or drainage. ENT: Hearing grossly normal. Nose without bleeding or purulent drainage. NECK: Status post tracheostomy CARDIOVASCULAR: Regular rate and rhythm without murmurs, gallops, or rubs. No JVD. RESPIRATORY/CHEST: Respirations unlabored. Breath sounds diminished bilaterally. No accessory muscle use. GASTROINTESTINAL: Abdomen soft, non-tender, nondistended. No guarding. Bowel sounds present. GENITOURINARY: Without palpable bladder distension. . MUSCULOSKELETAL: Extremities without clubbing, cyanosis, or edema. No mottling or clubbing. LYMPHATICS: No palpable cervical or supraclavicular adenopathy. NEUROLOGICAL: Awake and alert. Responds to questions, follows simple commands. PSYCHIATRIC: No obvious anxiety/depression. no apparent hallucinations or other psychotic thought process. . Diagnostic Tests Laboratory Laboratory Tests Test 06/16/17 12:25 06/16/17 13:40 06/16/17 13:50 06/16/17 15:28 White Blood Count 14.7 TH/MM3 (4.0-11.0) Red Blood Count 3.87 MIL/MM3 (4.50-5.90) Hemoglobin 10.5 GM/DL (13.0-17.0) Hematocrit 33.2 % (39.0-51.0) Mean Corpuscular Volume 85.8 FL (80.0-100.0) Mean Corpuscular Hemoglobin 27.2 PG (27.0-34.0) Mean Corpuscular Hemoglobin Concent 31.7 % (32.0-36.0) Red Cell Distribution Width 16.5 % (11.6-17.2) Platelet Count 404 TH/MM3 (150-450) Mean Platelet Volume 8.3 FL (7.0-11.0) Neutrophils (%) (Auto) 92.1 % (16.0-70.0) Lymphocytes (%) (Auto) 1.8 % (9.0-44.0) Monocytes (%) (Auto) 5.9 % (0.0-8.0) Eosinophils (%) (Auto) 0.0 % (0.0-4.0) Basophils (%) (Auto) 0.2 % (0.0-2.0) Neutrophils # (Auto) 13.5 TH/MM3 (1.8-7.7) Lymphocytes # (Auto) 0.3 TH/MM3 (1.0-4.8) Monocytes # (Auto) 0.9 TH/MM3 (0-0.9) Eosinophils # (Auto) 0.0 TH/MM3 (0-0.4) Basophils # (Auto) 0.0 TH/MM3 (0-0.2) CBC Comment DIFF FINAL Differential Comment Prothrombin Time 12.3 SEC (9.8-11.6) Prothromb Time International Ratio 1.1 RATIO Activated Partial Thromboplast Time 33.3 SEC (24.3-30.1) Blood Urea Nitrogen 23 MG/DL (7-18) Creatinine 1.75 MG/DL (0.60-1.30) Random Glucose 186 MG/DL (74-106) Total Protein 6.7 GM/DL (6.4-8.2) Albumin 2.2 GM/DL (3.4-5.0) Calcium Level 9.3 MG/DL (8.5-10.1) Alkaline Phosphatase 114 U/L (45-117) Aspartate Amino Transf (AST/SGOT) 16 U/L (15-37) Alanine Aminotransferase (ALT/SGPT) 13 U/L (12-78) Total Bilirubin 0.3 MG/DL (0.2-1.0) Sodium Level 126 MEQ/L (136-145) Potassium Level 5.1 MEQ/L (3.5-5.1) Chloride Level 89 MEQ/L (98-107) Carbon Dioxide Level 26.5 MEQ/L (21.0-32.0) Anion Gap 11 MEQ/L (5-15) Estimat Glomerular Filtration Rate 39 ML/MIN (>89) Lactic Acid Level 3.4 mmol/L (0.4-2.0) 1.4 mmol/L (0.4-2.0) Total Creatine Kinase 32 U/L (39-308) Troponin I LESS THAN 0.02 NG/ML Blood Gas Puncture Site RT RADIAL Blood Gas Patient Temperature 98.6 Blood Gas HCO3 25 mmol/L (22-26) Blood Gas Base Excess -0.6 mmol/L (-2-2) Blood Gas Oxygen Saturation 96 % (90-100) Arterial Blood pH 7.29 (7.380-7.420) Arterial Blood Partial Pressure CO2 53 mmHg (38-42) Arterial Blood Partial Pressure O2 106 mmHG (61-120) Arterial Blood Oxygen Content 13.6 Vol % (12.0-20.0) Arterial Blood Carboxyhemoglobin 1.3 % (0-4) Arterial Blood Methemoglobin 0.4 % (0-2) Blood Gas Hemoglobin 9.9 G/DL (12.0-16.0) Oxygen Delivery Device MASK Blood Gas Liter Flow 7 L/M Blood Gas Inspired Oxygen 100 % Urine Color YELLOW (YELLW/STRAW) Urine Turbidity CLEAR (CLEAR) Urine pH 5.5 (5.0-8.5) Urine Specific Palmer 1.013 (1.002-1.035) Urine Protein TRACE mg/dL (NEG-TRACE) Urine Glucose (UA) NEG mg/dL (NEG) Urine Ketones NEG mg/dL (NEG) Urine Occult Blood NEG (NEG) Urine Nitrite NEG (NEG) Urine Bilirubin NEG (NEG) Urine Urobilinogen LESS THAN 2.0 MG/DL (LESS Urine Leukocyte Esterase NEG (NEG) Urine RBC LESS THAN 1 /hpf (0-3) Urine WBC 1 /hpf (0-5) Microscopic Urinalysis Comment CATH-CULT NOT IND Test 06/16/17 19:53 06/17/17 02:57 06/17/17 18:18 06/18/17 05:29 Total Creatine Kinase 137 U/L (39-308) 194 U/L (39-308) Troponin I 0.56 NG/ML (0.02-0.05) 0.80 NG/ML (0.02-0.05) White Blood Count 10.2 TH/MM3 (4.0-11.0) 9.6 TH/MM3 (4.0-11.0) Red Blood Count 3.38 MIL/MM3 (4.50-5.90) 3.50 MIL/MM3 (4.50-5.90) Hemoglobin 9.2 GM/DL (13.0-17.0) 9.5 GM/DL (13.0-17.0) Hematocrit 28.6 % (39.0-51.0) 29.7 % (39.0-51.0) Mean Corpuscular Volume 84.8 FL (80.0-100.0) 84.8 FL (80.0-100.0) Mean Corpuscular Hemoglobin 27.3 PG (27.0-34.0) 27.0 PG (27.0-34.0) Mean Corpuscular Hemoglobin Concent 32.1 % (32.0-36.0) 31.9 % (32.0-36.0) Red Cell Distribution Width 16.3 % (11.6-17.2) 16.3 % (11.6-17.2) Platelet Count 280 TH/MM3 (150-450) 341 TH/MM3 (150-450) Mean Platelet Volume 7.9 FL (7.0-11.0) 8.1 FL (7.0-11.0) Neutrophils (%) (Auto) 93.5 % (16.0-70.0) 94.2 % (16.0-70.0) Lymphocytes (%) (Auto) 3.7 % (9.0-44.0) 2.8 % (9.0-44.0) Monocytes (%) (Auto) 2.7 % (0.0-8.0) 2.9 % (0.0-8.0) Eosinophils (%) (Auto) 0.0 % (0.0-4.0) 0.0 % (0.0-4.0) Basophils (%) (Auto) 0.1 % (0.0-2.0) 0.1 % (0.0-2.0) Neutrophils # (Auto) 9.6 TH/MM3 (1.8-7.7) 9.1 TH/MM3 (1.8-7.7) Lymphocytes # (Auto) 0.4 TH/MM3 (1.0-4.8) 0.3 TH/MM3 (1.0-4.8) Monocytes # (Auto) 0.3 TH/MM3 (0-0.9) 0.3 TH/MM3 (0-0.9) Eosinophils # (Auto) 0.0 TH/MM3 (0-0.4) 0.0 TH/MM3 (0-0.4) Basophils # (Auto) 0.0 TH/MM3 (0-0.2) 0.0 TH/MM3 (0-0.2) CBC Comment DIFF FINAL DIFF FINAL Differential Comment Blood Urea Nitrogen 27 MG/DL (7-18) 44 MG/DL (7-18) Creatinine 1.72 MG/DL (0.60-1.30) 1.69 MG/DL (0.60-1.30) Random Glucose 125 MG/DL (74-106) 137 MG/DL (74-106) Total Protein 5.7 GM/DL (6.4-8.2) 6.0 GM/DL (6.4-8.2) Albumin 1.8 GM/DL (3.4-5.0) 1.8 GM/DL (3.4-5.0) Calcium Level 8.2 MG/DL (8.5-10.1) 8.3 MG/DL (8.5-10.1) Phosphorus Level 5.0 MG/DL (2.5-4.9) 4.3 MG/DL (2.5-4.9) Magnesium Level 2.1 MG/DL (1.5-2.5) 2.3 MG/DL (1.5-2.5) Alkaline Phosphatase 96 U/L (45-117) 91 U/L (45-117) Aspartate Amino Transf (AST/SGOT) 26 U/L (15-37) 23 U/L (15-37) Alanine Aminotransferase (ALT/SGPT) 13 U/L (12-78) 16 U/L (12-78) Total Bilirubin 0.4 MG/DL (0.2-1.0) 0.3 MG/DL (0.2-1.0) Sodium Level 131 MEQ/L (136-145) 132 MEQ/L (136-145) Potassium Level 5.3 MEQ/L (3.5-5.1) 5.5 MEQ/L (3.5-5.1) Chloride Level 98 MEQ/L (98-107) 99 MEQ/L (98-107) Carbon Dioxide Level 25.9 MEQ/L (21.0-32.0) 25.6 MEQ/L (21.0-32.0) Anion Gap 7 MEQ/L (5-15) 7 MEQ/L (5-15) Estimat Glomerular Filtration Rate 40 ML/MIN (>89) 41 ML/MIN (>89) Hemoglobin A1c 6.4 % (4.3-6.0) Free Thyroxine 1.15 NG/DL (0.76-1.46) Thyroid Stimulating Hormone 3rd Gen 0.640 uIU/ML (0.358-3.740) Iron Level 14 MCG/DL (65-175) Total Iron Binding Capacity 112 MCG/DL (250-450) Percent Iron Saturation 12.5 % (20-50) Ferritin 1211 NG/ML (26-388) Vitamin B12 Level 1138 PG/ML (193-986) Random Vancomycin Level 19.7 COMMENT Test 06/19/17 04:15 White Blood Count 7.7 TH/MM3 (4.0-11.0) Red Blood Count 3.35 MIL/MM3 (4.50-5.90) Hemoglobin 9.4 GM/DL (13.0-17.0) Hematocrit 28.1 % (39.0-51.0) Mean Corpuscular Volume 83.9 FL (80.0-100.0) Mean Corpuscular Hemoglobin 28.0 PG (27.0-34.0) Mean Corpuscular Hemoglobin Concent 33.4 % (32.0-36.0) Red Cell Distribution Width 16.4 % (11.6-17.2) Platelet Count 328 TH/MM3 (150-450) Mean Platelet Volume 7.8 FL (7.0-11.0) Neutrophils (%) (Auto) 93.4 % (16.0-70.0) Lymphocytes (%) (Auto) 3.6 % (9.0-44.0) Monocytes (%) (Auto) 2.8 % (0.0-8.0) Eosinophils (%) (Auto) 0.0 % (0.0-4.0) Basophils (%) (Auto) 0.2 % (0.0-2.0) Neutrophils # (Auto) 7.2 TH/MM3 (1.8-7.7) Lymphocytes # (Auto) 0.3 TH/MM3 (1.0-4.8) Monocytes # (Auto) 0.2 TH/MM3 (0-0.9) Eosinophils # (Auto) 0.0 TH/MM3 (0-0.4) Basophils # (Auto) 0.0 TH/MM3 (0-0.2) CBC Comment DIFF FINAL Differential Comment Blood Urea Nitrogen 56 MG/DL (7-18) Creatinine 1.50 MG/DL (0.60-1.30) Random Glucose 199 MG/DL (74-106) Total Protein 5.8 GM/DL (6.4-8.2) Albumin 1.8 GM/DL (3.4-5.0) Calcium Level 8.3 MG/DL (8.5-10.1) Phosphorus Level 3.1 MG/DL (2.5-4.9) Magnesium Level 2.4 MG/DL (1.5-2.5) Alkaline Phosphatase 86 U/L (45-117) Aspartate Amino Transf (AST/SGOT) 19 U/L (15-37) Alanine Aminotransferase (ALT/SGPT) 18 U/L (12-78) Total Bilirubin 0.3 MG/DL (0.2-1.0) Sodium Level 134 MEQ/L (136-145) Potassium Level 5.1 MEQ/L (3.5-5.1) Chloride Level 100 MEQ/L (98-107) Carbon Dioxide Level 26.0 MEQ/L (21.0-32.0) Anion Gap 8 MEQ/L (5-15) Estimat Glomerular Filtration Rate 47 ML/MIN (>89) Result Diagram: 06/19/17 0415 06/19/17 0415 Microbiology Microbiology Date/Time Source Procedure Growth Status 06/16/17 12:25 Blood Peripheral Aerobic Blood Culture - Preliminary NO GROWTH IN 3 DAYS Resulted 06/16/17 12:25 Blood Peripheral Anaerobic Blood Culture - Preliminary NO GROWTH IN 3 DAYS Resulted 06/16/17 12:25 Blood Peripheral Aerobic Blood Culture - Preliminary NO GROWTH IN 3 DAYS Resulted 06/16/17 12:25 Anaerobic Blood Culture - Preliminary Staphylococcus Epidermidis Resulted 06/16/17 14:22 Sputum Endotracheal Gram Stain - Final Complete 06/16/17 14:22 Sputum Culture - Final Pseudomonas Aeruginosa S. Aureus Mrsa Escherichia Coli Group B Beta Strep Complete Assessment and Plan Disease Oriented Problem List: (1) COPD (chronic obstructive pulmonary disease) (2) Tracheostomy dependent (3) Carotid artery disease (4) Diabetes mellitus (5) Elevated troponin I level (6) PVD (peripheral vascular disease) (7) ROSALINO (acute kidney injury) (8) Hyperlipidemia (9) Hypertension (10) Congestive heart failure (CHF) (11) Acute respiratory failure (12) Chronic respiratory failure (13) Laryngeal cancer (14) SIRS due to infectious process without acute organ dysfunction (15) Sepsis Symptom Scale: (1) Debility (2) Malnutrition Pertinent Non-Medical Issues Psychosocial: Patient was born and raised in [place]. 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 The patient has lived with his in [place] several years. He has no biological children but has 4 stepdaughters. Antonietta Yuan (daughter) is primary health care surrogate. She is a nurse working in [employer]. Triny Fortune (daughter), works at [facility]. Spiritual: No sikhism affiliation Legal: Antonietta Yuan (primary HCS) [phone] or [phone]. Triny Angel Luiscandis (alternate HCS): [phone] or [phone] or [phone] Ethical issues impacting care: No known ethical issues impacting care at this time. . Important Contacts Antonietta Yuan. (primary HCS): [phone] or [phone] Triny Fortune (alternate [facility]): [phone]. Work: or . 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 Pt also have underlying CAD, CKD, occluded right carotid artery, deconditioning, malnutrition, pneumonia, and confusion at times. Patient has been hospitalized multiple times since September, secondary to respiratory distress, aspiration, pneumonia and sepsis. Would be appropriate fo hospice if goals of care were to transition to comfort measures only. . Code Status: Full Code Plan * FULL CODE * Decision-making: Unable to access patient's insight and judgement related to patient's clinical condition. Patient has designated Antonietta Yuan as his health care surrogate decision maker. Ledy Fortune is designated as the alternate health care surrogate. Completed forms are accessible and the patient 's EMR. * GOALS AGGRESSIVE : Patient's requested a referral be made to [facility] inpatient rehabilitation, but the patient's step-daughter is now saying the patient wants to return home as soon as possible. Per notes, the patient/ family has discussed hospice but feel they are not ready at this time. Patient indicates today the he wants to continue immunotherapy and IV Keytruda; he states he isn't ready to "give up" yet. Patient and his verbalize ongoing aggressive goals. Patient's step-daughter states she and her sister have been talking about "when it will be time" to transition to comfort focused goals; they will continue to support the patient's goals at this time. * Discussed with bedside nurse (Laury) and Kiki BENAVIDES * Worsening performance status, overall poor prognosis. Patient would be appropriate for hospice if goals of care were to transition to comfort measures only. * Symptom management-debility: Patient with a history of laryngeal cancer diagnosed in 2016 s/p tracheostomy and PEG tube placement. Patient has been hospitalized multiple times since September, secondary to respiratory distress, aspiration, pneumonia and sepsis. Patient is severely deconditioned, increasingly fatigued with episodes of confusion/ anxiety. * Symptom management - pain: Patient observed grimacing on exam, reporting severe pain in his back. Patient has orders for Fentanyl Duragesic patch 25g every 72 hours and multiple PRN medications. 24-hour PRN totals: La Salle 7.5- 325mg x 3 and Percocet 10-325mg x 1. Recommendations to discontinue either PRN La Salle or PRN Percocet. * Symptom management - malnutrition: Status post PEG tube placement. Patient has lost approximately 20 kg in the past 12 months. BMI: 18.3. Total protein: 5.7, albumin 1.8. Dietary was consulted for recommendations. * Palliative care will continue to follow this patient throughout his hospitalization to establish trust, assist with symptom management and clarification of medical treatment goals. . Attestation To help prompt me to consider important information that might be impacting today's encounter and assessment, information from prior notes written by myself or my colleagues may have been "brought forward" into today's note. My signature on this note, however, is an attestation that I personally performed the exam, history, and/or decision-making noted today, and, unless otherwise indicated, the interactions with patient, family, and staff as well as the review of records all occurred today. I also attest that the listed assessment and stated plan reflect my best clinical judgment today based on the combination of historical information, prior notes, and today's exam/ interactions. When time spent is documented, it refers only to time spent today by the signer, or if indicated, combined time spent today by collaborating physician/nurse practitioner. . Pati Oneal Jun 19, 2017 11:24
--- NOTE | 2017-06-19 11:54 | PD.ONC.PN ---
Subjective Subjective Remarks Afebrile overnight. Resting in room. No family members at bedside. Tolerating tube feeds. Objective Data Date Time Temp Pulse Resp B/P (MAP) Pulse Ox O2 Delivery O2 Flow Rate FiO2 06/19/17 09:32 97 Trach Collar 06/19/17 08:00 98.3 110 18 142/72 (95) 97 06/19/17 04:35 97 Room Air Trach Collar 06/19/17 04:00 98.0 92 20 143/74 (97) 96 06/19/17 00:10 Room Air Trach Collar 06/19/17 00:00 97.4 79 20 129/67 (87) 96 06/18/17 20:03 139 06/18/17 20:00 97.5 112 22 146/73 (97) 97 06/18/17 20:00 Room Air Trach Collar 06/18/17 17:41 96 21 06/18/17 16:00 97.5 97 18 145/65 (91) 97 06/18/17 12:00 98.0 87 18 119/56 (77) 96 06/19/17 06/19/17 06/19/17 07:00 15:00 23:00 Intake Total 1260 ml Output Total 400 ml Balance 860 ml Result Diagram: 06/19/17 0415 06/19/17 0415 Laboratory Results Laboratory Tests Test 06/19/17 04:15 White Blood Count 7.7 TH/MM3 Red Blood Count 3.35 MIL/MM3 Hemoglobin 9.4 GM/DL Hematocrit 28.1 % Mean Corpuscular Volume 83.9 FL Mean Corpuscular Hemoglobin 28.0 PG Mean Corpuscular Hemoglobin Concent 33.4 % Red Cell Distribution Width 16.4 % Platelet Count 328 TH/MM3 Mean Platelet Volume 7.8 FL Neutrophils (%) (Auto) 93.4 % Lymphocytes (%) (Auto) 3.6 % Monocytes (%) (Auto) 2.8 % Eosinophils (%) (Auto) 0.0 % Basophils (%) (Auto) 0.2 % Neutrophils # (Auto) 7.2 TH/MM3 Lymphocytes # (Auto) 0.3 TH/MM3 Monocytes # (Auto) 0.2 TH/MM3 Eosinophils # (Auto) 0.0 TH/MM3 Basophils # (Auto) 0.0 TH/MM3 CBC Comment DIFF FINAL Differential Comment Blood Urea Nitrogen 56 MG/DL Creatinine 1.50 MG/DL Random Glucose 199 MG/DL Total Protein 5.8 GM/DL Albumin 1.8 GM/DL Calcium Level 8.3 MG/DL Phosphorus Level 3.1 MG/DL Magnesium Level 2.4 MG/DL Alkaline Phosphatase 86 U/L Aspartate Amino Transf (AST/SGOT) 19 U/L Alanine Aminotransferase (ALT/SGPT) 18 U/L Total Bilirubin 0.3 MG/DL Sodium Level 134 MEQ/L Potassium Level 5.1 MEQ/L Chloride Level 100 MEQ/L Carbon Dioxide Level 26.0 MEQ/L Anion Gap 8 MEQ/L Estimat Glomerular Filtration Rate 47 ML/MIN Culture Results Microbiology Date/Time Source Procedure Growth Status 06/16/17 12:25 Blood Peripheral Aerobic Blood Culture - Preliminary NO GROWTH IN 3 DAYS Resulted 06/16/17 12:25 Blood Peripheral Anaerobic Blood Culture - Preliminary NO GROWTH IN 3 DAYS Resulted 06/16/17 12:25 Blood Peripheral Aerobic Blood Culture - Preliminary NO GROWTH IN 3 DAYS Resulted 06/16/17 12:25 Anaerobic Blood Culture - Preliminary Staphylococcus Epidermidis Resulted 06/16/17 14:22 Sputum Endotracheal Gram Stain - Final Complete 06/16/17 14:22 Sputum Culture - Final Pseudomonas Aeruginosa S. Aureus Mrsa Escherichia Coli Group B Beta Strep Complete Administered Medications Medications (Trade) Dose Ordered Sig/Alea Route PRN Reason Start Time Stop Time Status Last Admin Dose Admin Alprazolam (Xanax) 0.25 mg Q8H PRN PO ANXIETY 06/16/17 16:45 06/19/17 07:32 Apixaban (Eliquis) 5 mg BID PO 06/16/17 21:00 06/19/17 07:31 Citalopram Hydrobromide (CeleXA) 20 mg DAILY PO 06/17/17 09:00 06/19/17 07:30 Fentanyl (Duragesic 25 Mcg Patch.72 Hr) 1 patch Q72H T-DERMAL 06/16/17 18:00 06/16/17 18:46 Acetaminophen/ Hydrocodone Bitart ([place] 7.5-325 Mg) 1 tab Q4H PRN PO PAIN SCALE 1 TO 10 06/16/17 16:45 06/19/17 04:31 Lansoprazole (Prevacid Odt) 30 mg DAILY NG 06/16/17 16:45 06/19/17 07:31 Metoprolol Tartrate (Lopressor) 12.5 mg BID PEG 06/16/17 21:00 06/19/17 07:32 Quetiapine Fumarate (SEROquel) 12.5 mg BID PO 06/16/17 21:00 06/19/17 07:31 Loratadine (Claritin) 10 mg DAILY G-TUBE 06/16/17 16:45 06/19/17 07:31 Hyoscyamine Sulfate (Levsin) 0.125 mg BID G-TUBE 06/16/17 21:00 06/19/17 07:32 Acetaminophen (Tylenol) 650 mg Q4H PRN PO TEMP > 100.4 06/16/17 16:45 06/16/17 18:23 Acetaminophen (Tylenol) 650 mg Q6H PRN PO PAIN SCALE 1 TO 2 06/16/17 16:45 06/17/17 19:59 Oxycodone/ Acetaminophen (Percocet 10-325 Mg) 1 tab Q6H PRN PO PAIN SCALE 6 TO 10 06/16/17 16:45 06/19/17 10:42 Morphine Sulfate (Morphine Inj) 4 mg Q3H PRN IV PUSH Pain 6-10;if unable to take PO 06/16/17 16:45 06/17/17 20:14 Senna/Docusate Sodium (Genoveva-Colace) 1 tab BID PO 06/16/17 21:00 06/18/17 21:44 Sodium Chloride (NS Flush) 2 ml BID IV FLUSH 06/16/17 21:00 06/18/17 21:00 Cefepime HCl 2000 mg/Sodium Chloride 100 ml @ 200 mls/hr Q12H IV 06/17/17 02:00 06/19/17 03:03 Methylprednisolone Sodium Succinate (SoluMEDROL INJ) 40 mg Q8H IV PUSH 06/16/17 18:00 06/19/17 03:03 Vancomycin HCl 1000 mg/Sodium Chloride 250 ml @ 250 mls/hr Q24H IV 06/18/17 12:00 06/18/17 12:33 Polyethylene Glycol (Miralax) 17 gm DAILY G-TUBE 06/18/17 12:34 06/18/17 12:34 Objective Remarks GENERAL: Chronically ill male lying supine in bed watching TV SKIN: Warm and dry. HEAD: Normocephalic. EYES: No injection or drainage. NECK: Supple, trachea midline. trach in place. CARDIOVASCULAR: Regular rate and rhythm RESPIRATORY: anterior seo with occasional rhonchi. GASTROINTESTINAL: Abdomen soft, non-tender, nondistended. EXTREMITIES: No cyanosis NEUROLOGICAL: awake. following commands. Assessment/Plan Problem List: (1) Laryngeal cancer ICD Codes: C32.9 - Malignant neoplasm of larynx, unspecified Status: Chronic Plan: --currently being treated with immunotherapy and receiving IV Keytruda every three weeks. --has high-risk disease. 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 --initially received definitive radiation treatments at the [facility] in [place]. --not a candidate for chemotherapy or surgery due to his poor performance status and multiple comorbidities. --was subsequently under observation, however, he relapsed in summer. -- We have had several conversations with the patient, his and his daughters regarding palliative care and Hospice in the past, however, they have opted to pursue aggressive treatment. (2) Normocytic anemia ICD Codes: D64.9 - Anemia, unspecified Status: Acute Plan: -- has received iron infusions in the past. --ferritin elevated. --B12 elevated --studies more consistent with anemia of chronic disease. (3) CAD (coronary artery disease) ICD Codes: I25.10 - Coronary artery disease Status: Chronic Plan: --? [id number] SC. Troponins are elevated? --Demand ischemia, would defer further management to cardiology. (4) Acute on chronic kidney failure ICD Codes: N17.9 - [id number] renal failure; N18.9 - Chronic kidney disease, unspecified Status: Chronic Plan: --likely due to prerenal causes. Will continue to monitor. Assessment 66y/o with a history of recurrent laryngeal carcinoma admitted with altered mental status and respiratory distress. History of recurrent laryngeal cancer currently on immunotherapy. History of CAD, status post CABG and stents. h/o DVT and PVD-->on Eliquis COPD. GERD. Hypertension. Hyperlipidemia. Severe peripheral vascular disease. Chronic pain. Polycystic kidney disease. Plan 1. monitor CBC 2. continue antibiotics, steroids. 3. continue supportive care Attending Statement The exam, history, and the medical decision-making described in the above note were completed with the assistance of the mid-level provider. I reviewed and agree with the findings presented. I attest that I had a [id number] encounter with the patient on the same day, and personally performed and documented my assessment and findings in the medical record. remains weak and debilitated no family members in room continue supportive care Neeru Pritchett Jun 19, 2017 11:54 Perico Melchor MD Jun 19, 2017 19:50
[2017-06-19] MEDS: VANCOMYCIN 1,000 MG/NS 250 ML IV SCH ×2 (12:00)
--- NOTE | 2017-06-19 12:34 | PD.ID.CON ---
History of Present Illness Service ID Consult Requested By Dr Dias Reason for Consult + sputum clx and bactermia Primary Care Physician Juliane Briggs MD Diagnoses: History of Present Illness 66 yo male diagnosed with laringeal ca, sp PEG, trach, has a PORT (1 yr) presented with mental status change, sudden onset Developped fever wafter been admitted started on broad spectrum abx Improved rapidly, mental status went to baseline His blood c lx growing Staph epi 1/4 bottles and sputumm clx multiple baceria, including MRSA, GBS, PSAE, E.coli His CXR is negative He endorses increased drainage from baseline from the trach sometimes with blood visible Past Family Social History Allergies: Coded Allergies: amlodipine (Unverified Allergy, Severe, 06/16/17) atorvastatin (Unverified Allergy, Severe, 06/16/17) niacin (Unverified Allergy, Severe, 06/16/17) CAUSES HIM TO FEEL HOT pravastatin (Unverified Allergy, Severe, 06/16/17) simvastatin (Unverified Allergy, Severe, 06/16/17) fish oil (Unverified Allergy, Intermediate, Diarrhea, 06/16/17) Active Ordered Medications Medications where reviewed in EMR Antibiotics Include: vancomycin cefepime Physical Exam Vital Signs Vital Signs Date Time Temp Pulse Resp B/P (MAP) Pulse Ox O2 Delivery O2 Flow Rate FiO2 06/19/17 09:32 97 Trach Collar 06/19/17 08:00 98.3 110 18 142/72 (95) 97 06/19/17 04:35 97 Room Air Trach Collar 06/19/17 04:00 98.0 92 20 143/74 (97) 96 06/19/17 00:10 Room Air Trach Collar 06/19/17 00:00 97.4 79 20 129/67 (87) 96 06/18/17 20:03 139 06/18/17 20:00 97.5 112 22 146/73 (97) 97 06/18/17 20:00 Room Air Trach Collar 06/18/17 17:41 96 21 06/18/17 16:00 97.5 97 18 145/65 (91) 97 Physical Exam CONSTITUTIONAL/GENERAL: This is a thin cachectic chronically ill appearing patient, in no apparent distress. TUBES/LINES/DRAINS: PORT in place R chest - looks OK SKIN: No jaundice, rashes, or lesions. Skin temperature appropriate. Not diaphoretic. HEAD: Atraumatic. Normocephalic. EYES: Pupils equal and round and reactive. Extraocular motions intact. No scleral icterus. No injection or drainage. Fundi not examined. ENT: Hearing grossly normal. Nose without bleeding or purulent drainage. Throat without visible erythema, exudates, masses, or lesions. NECK: Trach in place with no erythema around, no drainage Supple, nontender. No palpable thyroid enlargement or nodularity. CARDIOVASCULAR: Regular rate and rhythm without murmurs, gallops, or rubs. No JVD. Peripheral pulses symmetric. RESPIRATORY/CHEST: Symmetric, unlabored respirations. Clear to auscultation. Breath sounds equal bilaterally. No wheezes, rales, or rhonchi. GASTROINTESTINAL: Abdomen soft, non-tender, nondistended. No hepato-splenomegaly , or palpable masses. No guarding. Bowel sounds present. PEG in pl;karen GENITOURINARY: Without palpable bladder distension. MUSCULOSKELETAL: Extremities without clubbing, cyanosis, or edema. No joint tenderness or effusion noted. No calf tenderness. No mottling or clubbing. LYMPHATICS: No palpable cervical or supraclavicular adenopathy. NEUROLOGICAL: Awake and alert. Motor and sensory grossly within normal limits. Follows commands. Moves all extremities. PSYCHIATRIC: No obvious anxiety/depression. no apparent hallucinations or other psychotic thought process. Laboratory Laboratory Tests Test 06/19/17 04:15 White Blood Count 7.7 Red Blood Count 3.35 Hemoglobin 9.4 Hematocrit 28.1 Mean Corpuscular Volume 83.9 Mean Corpuscular Hemoglobin 28.0 Mean Corpuscular Hemoglobin Concent 33.4 Red Cell Distribution Width 16.4 Platelet Count 328 Mean Platelet Volume 7.8 Neutrophils (%) (Auto) 93.4 Lymphocytes (%) (Auto) 3.6 Monocytes (%) (Auto) 2.8 Eosinophils (%) (Auto) 0.0 Basophils (%) (Auto) 0.2 Neutrophils # (Auto) 7.2 Lymphocytes # (Auto) 0.3 Monocytes # (Auto) 0.2 Eosinophils # (Auto) 0.0 Basophils # (Auto) 0.0 CBC Comment DIFF FINAL Differential Comment Blood Urea Nitrogen 56 Creatinine 1.50 Random Glucose 199 Total Protein 5.8 Albumin 1.8 Calcium Level 8.3 Phosphorus Level 3.1 Magnesium Level 2.4 Alkaline Phosphatase 86 Aspartate Amino Transf (AST/SGOT) 19 Alanine Aminotransferase (ALT/SGPT) 18 Total Bilirubin 0.3 Sodium Level 134 Potassium Level 5.1 Chloride Level 100 Carbon Dioxide Level 26.0 Anion Gap 8 Estimat Glomerular Filtration Rate 47 Date/Time Source Procedure Growth Status 06/16/17 12:25 Blood Peripheral Aerobic Blood Culture - Preliminary NO GROWTH IN 3 DAYS Resulted 06/16/17 12:25 Blood Peripheral Anaerobic Blood Culture - Preliminary NO GROWTH IN 3 DAYS Resulted 06/16/17 14:22 Sputum Endotracheal Gram Stain - Final Complete 06/16/17 14:22 Sputum Culture - Final Pseudomonas Aeruginosa S. Aureus Mrsa Escherichia Coli Group B Beta Strep Complete Result Diagram: 06/19/17 0415 06/19/175 Imaging Last Impressions Chest X-Ray 06/17/17 0600 Signed Impressions: Service Date/Time: Saturday, June 17, 2017 04:31 - CONCLUSION: 1. No acute cardiopulmonary disease. Chivo Bates MD Head CT 06/16/17 1220 Signed Impressions: Service Date/Time: Friday, June 16, 2017 12:42 - CONCLUSION: 1. Cortical atrophy. 2. 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 3. No acute intracranial abnormality identified. Dion Coto MD Assessment and Plan Assessment and Plan Clinical pic of brioonchitis vs Probable colonisation of airways with 4 mixed m /o ? NSTEMI Low grade (prelim) coag ne gstaph bacteremia in the setting s of PORT Rec's: follow blood clx will stop IV vanco if bacteremia remains low grade; cont vanco dc cefepime PO levaquine Vicenta Niño MD Jun 19, 2017 12:34
--- NOTE | 2017-06-19 15:54 | HHI.PR ---
Subjective Remarks 66 YOWM with larungeal ca, Trach,AMS mental status improved Alert, awake, follows commands On PMV Small amount og trach secretions. Dr Preston on case Objective Vital Signs Vital Signs Date Time Temp Pulse Resp B/P (MAP) Pulse Ox O2 Delivery O2 Flow Rate FiO2 06/19/17 12:00 97.5 83 18 129/60 (83) 98 06/19/17 09:32 97 Trach Collar 06/19/17 08:00 98.3 110 18 142/72 (95) 97 06/19/17 04:35 97 Room Air Trach Collar 06/19/17 04:00 98.0 92 20 143/74 (97) 96 06/19/17 00:10 Room Air Trach Collar 06/19/17 00:00 97.4 79 20 129/67 (87) 96 06/18/17 20:03 139 06/18/17 20:00 97.5 112 22 146/73 (97) 97 06/18/17 20:00 Room Air Trach Collar 06/18/17 17:41 96 21 06/18/17 16:00 97.5 97 18 145/65 (91) 97 I/O 06/18/17 06/18/17 06/18/17 06/19/17 06/19/17 06/19/17 07:00 15:00 23:00 07:00 15:00 23:00 Intake Total 100 ml 250 ml 600 ml 1260 ml 250 ml Output Total 400 ml 700 ml 400 ml Balance -300 ml 250 ml -100 ml 860 ml 250 ml Intake Oral 0 ml IV Total 100 ml 250 ml 100 ml 100 ml 250 ml Tube Feeding 200 ml 560 ml Other 300 ml 600 ml Output Urine Total 400 ml 700 ml 400 ml Bladder Scan Volume Amount 138 ml # Voids 4 # Bowel Movements 0 0 2 Result Diagram: 06/19/1741406/19/17414 Objective Remarks GENERAL: MBMN WM, mild sob SKIN: Warm and dry. HEAD: Normocephalic. EYES: No scleral icterus. No injection or drainage. NECK: Supple, trachea midline. No JVD or lymphadenopathy. has trach CARDIOVASCULAR: Regular rate and rhythm without murmurs, gallops, or rubs. RESPIRATORY: Breath sounds equal bilaterally. No accessory muscle use. GASTROINTESTINAL: Abdomen soft, non-tender, nondistended. has PEG> MUSCULOSKELETAL: No cyanosis, or edema. BACK: Nontender without obvious deformity. No CVA tenderness. A/P Assessment and Plan Resp insuff improved COPD Ca larynx, s/p Trach Hemoptysis resolved CAD PLAN: Trach collar, PMV IV Solumedrol Aerosol nebs Cont Abx per ID Supplement 02 TF Real Coffey MD Jun 19, 2017 15:54
[2017-06-19] MEDS: fentaNYL 25 MCG/HR PATCH T-DERMAL SCH (18:04)
--- NOTE | 2017-06-19 18:38 | HHI.PR ---
Subjective Remarks Follow up altered mental status. Patient seen and examined in room, standing up on side of bed urinating in urinal, dark red urine noted. Patient denies any prior hematuria. Denies any recent fever, chills. Denies pain. Has been ambulating with assistance and walker. Awake and alert. Trach in place, thick dominguez secretions noted. Objective Vitals Vital Signs Date Time Temp Pulse Resp B/P (MAP) Pulse Ox O2 Delivery O2 Flow Rate FiO2 06/19/17 17:49 99 21 06/19/17 16:11 97.4 100 18 147/85 (105) 99 06/19/17 12:00 97.5 83 18 129/60 (83) 98 06/19/17 09:32 97 Trach Collar 06/19/17 08:00 96 Room Air Trach Collar 06/19/17 08:00 98.3 110 18 142/72 (95) 97 06/19/17 08:00 95 06/19/17 04:35 97 Room Air Trach Collar 06/19/17 04:00 98.0 92 20 143/74 (97) 96 06/19/17 00:10 Room Air Trach Collar 06/19/17 00:00 97.4 79 20 129/67 (87) 96 06/18/17 20:03 139 06/18/17 20:00 97.5 112 22 146/73 (97) 97 06/18/17 20:00 Room Air Trach Collar I/O 06/18/17 06/18/17 06/18/17 06/19/17 06/19/17 06/19/17 07:00 15:00 23:00 07:00 15:00 23:00 Intake Total 100 ml 250 ml 600 ml 1260 ml 250 ml Output Total 400 ml 700 ml 400 ml Balance -300 ml 250 ml -100 ml 860 ml 250 ml Intake Oral 0 ml IV Total 100 ml 250 ml 100 ml 100 ml 250 ml Tube Feeding 200 ml 560 ml Other 300 ml 600 ml Output Urine Total 400 ml 700 ml 400 ml Bladder Scan Volume Amount 138 ml # Voids 4 # Bowel Movements 0 0 2 Result Diagram: 06/19/1741406/19/17414 Imaging Last Impressions Chest X-Ray 06/17/17 0600 Signed Impressions: Service Date/Time: Saturday, June 17, 2017 04:31 - CONCLUSION: 1. No acute cardiopulmonary disease. Chivo Bates MD Head CT 06/16/17 1220 Signed Impressions: Service Date/Time: Friday, June 16, 2017 12:42 - CONCLUSION: 1. Cortical atrophy. 2. 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 3. No acute intracranial abnormality identified. Dion Coto MD Objective Remarks GENERAL: This is a cachectic appearing chronically ill patient in NO distress SKIN: No rashes, ecchymoses or lesions. Warm and dry HEAD: Atraumatic. Pupils equal round and reactive. Extraocular motions intact. No scleral icterus. No injection or drainage. Nose without bleeding. Airway patent. Oral mucosa is somewhat moist NECK: Trachea midline. No JVD. Supple. Has a tracheostomy in place CARDIOVASCULAR: Regular rate and rhythm without murmurs, gallops, or rubs. S1 and S2 no S3 or S4 tachycardia RESPIRATORY: Coarse breath sounds with rhonchi is bilaterally. Breath sounds equal bilaterally. No wheezes, rales, GASTROINTESTINAL: Abdomen soft, non-tender, nondistended. No hepato-splenomegaly , or palpable masses. No guarding. PEG tube in place MUSCULOSKELETAL: Extremities without clubbing, cyanosis, or edema. No joint tenderness, effusion, or edema noted. No calf tenderness. Negative Homans sign bilaterally. NEUROLOGICAL: Awake and alert. Cranial nerves II through XII GROSSLY intact. Motor and sensory grossly within normal limits.4 out of 5 muscle strength in all muscle groups. Speech clear through trach. Procedures NONE A/P Problem List: (1) Tracheostomy dependent ICD Code: Z93.0 - Tracheostomy status Status: Acute (2) Laryngeal cancer ICD Code: C32.9 - Malignant neoplasm of larynx, unspecified Status: Chronic (3) Chronic respiratory failure ICD Code: J96.10 - Chronic respiratory failure, unspecified whether with hypoxia or hypercapnia Status: Acute (4) Acute respiratory failure ICD Code: J96.00 - Acute respiratory failure, unspecified whether with hypoxia or hypercapnia Status: Resolved (5) Aspiration pneumonia ICD Code: J69.0 - Pneumonitis due to inhalation of food and vomit Status: Acute (6) Acute respiratory failure with hypoxemia ICD Code: J96.01 - Acute respiratory failure with hypoxemia Status: Acute (7) SIRS due to infectious process without acute organ dysfunction ICD Code: A41.9 - Sepsis, unspecified organism Status: Acute (8) Shortness of breath ICD Code: R06.02 - Shortness of breath Status: Acute (9) Failure to thrive in adult ICD Code: R62.7 - Adult failure to thrive Status: Chronic (10) COPD (chronic obstructive pulmonary disease) ICD Code: J44.9 - Chronic obstructive pulmonary disease, unspecified Status: Chronic (11) Sepsis ICD Code: A41.9 - Sepsis, unspecified organism Status: Acute (12) Confusion ICD Code: R41.0 - Disorientation, unspecified Status: Acute (13) Weakness ICD Code: R53.1 - Weakness Status: Acute Assessment and Plan Patient is a 66-year-old male with history of laryngeal cancer stage IV, tracheostomy, history of chronic blood clots on Eliquis, coronary artery disease , CABG, COPD, GERD, hypertension, hyperlipidemia, peripheral vascular occlusive disease, diabetes mellitus, chronic pain who presents with acute onset of altered mental status. Per , he was fine until early this morning. This is when he stopped responding to her. Family says last time he was sick, he had MRSA in his sputum. states that she was having to change out his trach multiple times overnight because WAS getting CLOGGED with blood and sputum. Per , he did walk himself to the bathroom early this morning before she noticed the acute change. There is no falls. Patient is unable to provide any history. Last week patient underwent chemotherapy with KEYTREVELYNE PER DR RIVERA. Patient normally sees Dr. SALAZAR as well as Dr. RIVERA OF ONCOLOGY. Respiratory failure with worsening respiratory status - Continue on antibiotics with duo nebs vancomycin and cefepime continue on guaifenesin. Pulmonology following. - Continue pulmonary toilet. Continue IV steroids. Altered mental status suspect secondary to infection, resolved. Laryngeal cancer status post tracheostomy Dysphagia - follows with Dr. Josie LUNSFORD last week. - Supportive care. Oncology following. Chronic DVT Peripheral vascular occlusive disease - Will hold Eliquis tonight, hematuria present, new onset. Will monitor. Urology consulted. Polycystic kidney disease with chronic elevated creatinine - continue on fluids - Urology consulted for hematuria. Appreciate input. Elevated troponins with suspected demand ischemia: No intervention per cardiology. Continue beta jessica. Monitor. Diabetes mellitus, chronic - ACCU checks, sliding scale, cover as needed. Monitor. GERD continue on PPI Chronic pain: Continue fentanyl patch. Continue Percocet. Morphine IV available PRN. DVT prophylaxis: Ambulation. SCDs. Hold Eliquis for now due to hematuria. Discharge Planning Pending. Urology consulted for hematuria. Problem Qualifiers (1) Sepsis: Qualified Codes: A41.9 - Sepsis, unspecified organism Matilda Bradford Jun 19, 2017 18:38
[2017-06-19] MEDS: FREE WATER PEG SCH (22:42)
[2017-06-19] MEDS: SODIUM CHLOR 0.9% 1000 ML INJ 1,000 ML IV SCH (23:15)
[2017-06-20] VITALS (10 sets, daily range): BP systolic 130–149; BP diastolic 66–80; PULSE 81–110; RESP 19–21; TEMP 97.4–98.6; O2SAT 97–99
[2017-06-20] MEDS: FREE WATER PEG SCH ×3 (02:58→19:00)
[2017-06-20] MEDS: methylPREDNISolone SOD SUCC 40 MG/1 ML VIAL IV PUSH SCH ×2 (02:58→09:53)
[2017-06-20] MEDS: POLYETHYLENE GLYCOL 17 GM PKG G-TUBE SCH (09:00)
[2017-06-20] MEDS: DOCUSATE SODIUM 50 MG/SENNA 8.6 MG TAB PO SCH ×2 (09:00→21:00)
[2017-06-20] MEDS: LEVOFLOXACIN 750 MG TAB PO SCH ×2 (09:37→09:54)
[2017-06-20] MEDS: LORATADINE 10 MG TAB G-TUBE SCH (09:37)
[2017-06-20] MEDS: LANSOPRAZOLE SOLUTAB 30 MG TAB NG SCH (09:37)
[2017-06-20] MEDS: CITALOPRAM HYDROBROMIDE 20 MG TAB PO SCH (09:38)
[2017-06-20] MEDS: METOPROLOL TARTRATE 25 MG TAB PEG SCH ×2 (09:38→20:42)
[2017-06-20] MEDS: QUEtiapine FUMARATE 25 MG TAB PO SCH ×2 (09:46→20:40)
[2017-06-20] MEDS: HYOSCYAMINE 0.125 MG TAB G-TUBE SCH ×2 (09:47→20:42)
[2017-06-20] MEDS: SODIUM CHLORIDE 0.9% FLUSH 10 ML FLUSH IV FLUSH SCH ×2 (09:47→20:42)
--- NOTE | 2017-06-20 10:11 | PD.ONC.PN ---
Subjective Subjective Remarks Afebrile overnight. Patient upright in chair. States he is feeling alright today. Daughter, Antonietta is at bedside. Patient developed hematuria yesterday. His eliquis is being held and urology has been consulted. Objective Data Date Time Temp Pulse Resp B/P (MAP) Pulse Ox O2 Delivery O2 Flow Rate FiO2 06/20/17 08:00 97.5 84 19 134/77 (96) 99 06/20/17 04:00 98.1 85 19 133/80 (97) 97 06/20/17 00:00 98.6 81 21 130/66 (87) 97 06/19/17 21:32 95 06/19/17 20:30 Trach Collar 06/19/17 20:00 98.7 93 19 147/71 (96) 100 06/19/17 18:00 97.5 110 20 145/82 (103) 97 06/19/17 17:49 99 21 06/19/17 16:11 97.4 100 18 147/85 (105) 99 06/19/17 12:00 97.5 83 18 129/60 (83) 98 06/20/17 06/20/17 06/20/17 07:00 15:00 23:00 Intake Total 1060 ml Output Total 400 ml Balance 660 ml Result Diagram: 06/19/17 0415 06/19/17 0415 Administered Medications Medications (Trade) Dose Ordered Sig/Alea Route PRN Reason Start Time Stop Time Status Last Admin Dose Admin Insulin Aspart (NovoLOG SUPPLEMENTAL SCALE) 1 ACHS SLIDING SCALE SQ 06/16/17 17:00 06/19/17 22:43 Alprazolam (Xanax) 0.25 mg Q8H PRN PO ANXIETY 06/16/17 16:45 06/19/17 15:26 Apixaban (Eliquis) 5 mg BID PO 06/16/17 21:00 Future Hold 06/19/17 07:31 Citalopram Hydrobromide (CeleXA) 20 mg DAILY PO 06/17/17 09:00 06/20/17 09:38 Fentanyl (Duragesic 25 Mcg Patch.72 Hr) 1 patch Q72H T-DERMAL 06/16/17 18:00 06/19/17 18:04 Acetaminophen/ Hydrocodone Bitart (Redrock 7.5-325 Mg) 1 tab Q4H PRN PO PAIN SCALE 1 TO 10 06/16/17 16:45 06/19/17 22:44 Lansoprazole (Prevacid Odt) 30 mg DAILY NG 06/16/17 16:45 06/20/17 09:37 Metoprolol Tartrate (Lopressor) 12.5 mg BID PEG 06/16/17 21:00 06/20/17 09:38 Quetiapine Fumarate (SEROquel) 12.5 mg BID PO 06/16/17 21:00 06/20/17 09:46 Loratadine (Claritin) 10 mg DAILY G-TUBE 06/16/17 16:45 06/20/17 09:37 Hyoscyamine Sulfate (Levsin) 0.125 mg BID G-TUBE 06/16/17 21:00 06/20/17 09:47 Acetaminophen (Tylenol) 650 mg Q4H PRN PO TEMP > 100.4 06/16/17 16:45 06/16/17 18:23 Acetaminophen (Tylenol) 650 mg Q6H PRN PO PAIN SCALE 1 TO 2 06/16/17 16:45 06/17/17 19:59 Oxycodone/ Acetaminophen (Percocet 10-325 Mg) 1 tab Q6H PRN PO PAIN SCALE 6 TO 10 06/16/17 16:45 06/19/17 18:04 Morphine Sulfate (Morphine Inj) 4 mg Q3H PRN IV PUSH Pain 6-10;if unable to take PO 06/16/17 16:45 06/17/17 20:14 Senna/Docusate Sodium (Genoveva-Colace) 1 tab BID PO 06/16/17 21:00 06/19/17 22:45 Sodium Chloride (NS Flush) 2 ml BID IV FLUSH 06/16/17 21:00 06/20/17 09:47 Methylprednisolone Sodium Succinate (SoluMEDROL INJ) 40 mg Q8H IV PUSH 06/16/17 18:00 06/20/17 09:53 Vancomycin HCl 1000 mg/Sodium Chloride 250 ml @ 250 mls/hr Q24H IV 06/18/17 12:00 06/19/17 12:00 Polyethylene Glycol (Miralax) 17 gm DAILY G-TUBE 06/18/17 12:34 06/19/17 09:00 Levofloxacin (Levaquin) 750 mg DAILY PO 06/19/17 18:00 06/20/17 09:54 Sodium Chloride 1,000 ml @ 84 mls/hr [id number] IV 06/19/17 20:00 06/19/17 23:15 Water (Free Water) 100 ml Q8H PEG 06/19/17 19:00 06/20/17 02:58 Objective Remarks GENERAL: Chronically ill male sitting up in chair next to bed in [facility]. SKIN: Warm and dry. HEAD: Normocephalic. EYES: No injection or drainage. NECK: Supple, trachea midline. trach in place with passy-maegan valve. CARDIOVASCULAR: Regular rate and rhythm RESPIRATORY: diminished at bases, anterior seo clear. on room air. GASTROINTESTINAL: Abdomen soft, non-tender, nondistended. EXTREMITIES: No cyanosis NEUROLOGICAL: awake and alert. answering questions. following commands. Assessment/Plan Problem List: (1) Laryngeal cancer ICD Codes: C32.9 - Malignant neoplasm of larynx, unspecified Status: Chronic Plan: --currently being treated with immunotherapy and receiving IV Keytruda every three weeks. --has high-risk disease. 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 --initially received definitive radiation treatments at the [facility] in [place]. --not a candidate for chemotherapy or surgery due to his poor performance status and multiple comorbidities. --was subsequently under observation, however, he relapsed in summer. -- We have had several conversations with the patient, his and his daughters regarding palliative care and Hospice in the past, however, they have opted to pursue aggressive treatment. (2) Normocytic anemia ICD Codes: D64.9 - Anemia, unspecified Status: Acute Plan: -- has received iron infusions in the past. --ferritin elevated. --B12 elevated --studies more consistent with anemia of chronic disease. (3) CAD (coronary artery disease) ICD Codes: I25.10 - Coronary artery disease Status: Chronic Plan: --? [id number] [facility]. Troponins are elevated? --Demand ischemia, would defer further management to cardiology. (4) Acute on chronic kidney failure ICD Codes: N17.9 - [id number]-[id number] renal failure; N18.9 - Chronic kidney disease, unspecified Status: Chronic Plan: --likely due to prerenal causes. Will continue to monitor. (5) Hematuria ICD Codes: R31.9 - Hematuria, unspecified Plan: --urology consulted --check U/A --check kidney/bladder u/s Assessment 66y/o with a history of recurrent laryngeal carcinoma admitted with altered mental status and respiratory distress. History of recurrent laryngeal cancer currently on immunotherapy. History of CAD, status post CABG and stents. h/o DVT and PVD-->on Eliquis COPD. GERD. Hypertension. Hyperlipidemia. Severe peripheral vascular disease. Chronic pain. Polycystic kidney disease. Plan 1. check CBC today 2. await urology consult 3. order bladder u/s Attending Statement The exam, history, and the medical decision-making described in the above note were completed with the assistance of the mid-level provider. I reviewed and agree with the findings presented. I attest that I had a [id number] encounter with the patient on the same day, and personally performed and documented my assessment and findings in the medical record. Family members not present patient remains lethargic hematuria/stop eliquis UA/urine cx and bladder scan Hb 9.5 daily cbc d/w rn o/n events reviewed Problem Qualifiers (1) Hematuria: Qualified Codes: R31.0 - Gross hematuria Neeru Pritchett Jun 20, 2017 10:11 Perico Melchor MD Jun 20, 2017 23:08
[2017-06-20] MEDS: INSULIN ASPART SUPPLEMENTAL SCALE SQ SCH ×4 (10:13→20:39)
[2017-06-20] MEDS: SODIUM CHLOR 0.9% 1000 ML INJ 1,000 ML IV SCH ×2 (10:15→18:17)
--- NOTE | 2017-06-20 10:44 | PD.CONS ---
[facility] Service Urology Consult Requested By MAKAYLA Harper Reason for Consult Gross hematuria Primary Care Physician Juliane Briggs MD Diagnosis: (1) Tracheostomy dependent ICD Code: Z93.0 - Tracheostomy status (2) Laryngeal cancer ICD Code: C32.9 - Malignant neoplasm of larynx, unspecified (3) Chronic respiratory failure ICD Code: J96.10 - Chronic respiratory failure, unspecified whether with hypoxia or hypercapnia (4) Acute respiratory failure ICD Code: J96.00 - Acute respiratory failure, unspecified whether with hypoxia or hypercapnia (5) Aspiration pneumonia ICD Code: J69.0 - Pneumonitis due to inhalation of food and vomit (6) Acute respiratory failure with hypoxemia ICD Code: J96.01 - Acute respiratory failure with hypoxemia (7) SIRS due to infectious process without acute organ dysfunction ICD Code: A41.9 - Sepsis, unspecified organism (8) Shortness of breath ICD Code: R06.02 - Shortness of breath (9) Failure to thrive in adult ICD Code: R62.7 - Adult failure to thrive (10) COPD (chronic obstructive pulmonary disease) ICD Code: J44.9 - Chronic obstructive pulmonary disease, unspecified (11) Sepsis ICD Code: A41.9 - Sepsis, unspecified organism (12) Confusion ICD Code: R41.0 - Disorientation, unspecified (13) Weakness ICD Code: R53.1 - Weakness History of Present Illness 66 year-old gentleman with multiple medical problems including stage IV laryngeal cancer who has a history of adult polycystic kidney disease and chronic blood clots on Eliquis who was recently admitted for mental status changes. The patient did have a Arroyo catheter placed during present hospitalization and initial urinalysis was negative for white cells or blood. The patient recently had his Arroyo catheter removed and soon thereafter developed gross painless hematuria plus prompting a urology evaluation. At time of consultation the patient was continuing to void well and continued to have red-colored urine without clots. He denies flank pain or dysuria. He denies a prior history of gross hematuria. Renal parameters have remained relatively stable despite the adult polycystic kidney disease. Patient's overall prognosis is quite guarded and hospice was suggested however at this point in time family is not ready to proceed down that path. Review of Systems ROS Limitations: Speech Impaired Constitutional: DENIES: Fever, Chills Cardiovascular: DENIES: Chest pain Gastrointestinal: DENIES: Abdominal pain Genitourinary: COMPLAINS OF: Hematuria, DENIES: Dysuria Musculoskeletal: DENIES: Back pain Except as stated in HPI: all other systems reviewed are Neg Past Family Social History Past Medical History Stage IV laryngeal CA Adult polycystic kidney disease Chronic blood clot formation Coronary artery disease COPD GERD Hyperlipidemia Hypertension Peripheral vascular disease Diabetes mellitus Past Surgical History Status post coronary artery bypass grafting Status post peripheral vascular stent placement Status post tracheostomy Status post PEG tube status post cholecystectomy Reported Medications Refer to EMR Allergies: Coded Allergies: amlodipine (Unverified Allergy, Severe, 06/16/17) atorvastatin (Unverified Allergy, Severe, 06/16/17) niacin (Unverified Allergy, Severe, 06/16/17) CAUSES HIM TO FEEL HOT pravastatin (Unverified Allergy, Severe, 06/16/17) simvastatin (Unverified Allergy, Severe, 06/16/17) fish oil (Unverified Allergy, Intermediate, Diarrhea, 06/16/17) Active Ordered Medications Refer to EMR Family History CVA Diabetes mellitus Hypertension APCKD Social History Former smoker of 3 packs per day 55 years/quit 2006 Denies alcohol abuse Denies history intravenous drug abuse Physical Exam Vital Signs Date Time Temp Pulse Resp B/P (MAP) Pulse Ox O2 Delivery O2 Flow Rate FiO2 06/20/17 10:05 99 06/20/17 08:00 97.5 84 19 134/77 (96) 99 06/20/17 04:00 98.1 85 19 133/80 (97) 97 06/20/17 00:00 98.6 81 21 130/66 (87) 97 06/19/17 21:32 95 06/19/17 20:30 Trach Collar 06/19/17 20:00 98.7 93 19 147/71 (96) 100 06/19/17 18:00 97.5 110 20 145/82 (103) 97 06/19/17 17:49 99 21 06/19/17 16:11 97.4 100 18 147/85 (105) 99 06/19/17 12:00 97.5 83 18 129/60 (83) 98 Physical Exam GENERAL: Appears older than stated age and in no apparent distress. SKIN: No rashes, ecchymoses or lesions. Cool and dry. HEAD: Atraumatic. Normocephalic. No temporal or scalp tenderness. EYES: Pupils equal round and reactive. Extraocular motions intact. No scleral icterus. No injection or drainage. ENT: Nose without bleeding, purulent drainage or septal hematoma. Throat without erythema, tonsillar hypertrophy or exudate. Uvula midline. Airway patent. NECK: Tracheostomy GASTROINTESTINAL: Abdomen soft, non-tender, nondistended. No hepato-splenomegaly , or palpable masses. No guarding. GENITOURINARY: No CVA tenderness. Bladder not distended MUSCULOSKELETAL: Extremities without clubbing, cyanosis, or edema. No joint tenderness, effusion, or edema noted. No calf tenderness. Negative Homans sign bilaterally. NEUROLOGICAL: Awake and alert. Communicative but hard to understand with tracheostomy. Lab results reviewed: Yes Date/Time Source Procedure Growth Status 06/16/17 12:25 Blood Peripheral Aerobic Blood Culture - Preliminary NO GROWTH IN 3 DAYS Resulted 06/16/17 12:25 Blood Peripheral Anaerobic Blood Culture - Preliminary NO GROWTH IN 3 DAYS Resulted 06/16/17 14:22 Sputum Endotracheal Gram Stain - Final Complete 06/16/17 14:22 Sputum Culture - Final Pseudomonas Aeruginosa S. Aureus Mrsa Escherichia Coli Group B Beta Strep Complete Result Diagram: 06/19/17 0415 06/19/17 0415 Personally reviewed images: Yes Imaging Last Impressions Chest X-Ray 06/17/17 0600 Signed Impressions: Service Date/Time: Saturday, June 17, 2017 04:31 - CONCLUSION: 1. No acute cardiopulmonary disease. Chivo Bates MD Head CT 06/16/17 1220 Signed Impressions: Service Date/Time: Friday, June 16, 2017 12:42 - CONCLUSION: 1. Cortical atrophy. 2. 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 3. No acute intracranial abnormality identified. Dion Coto MD Assessment and Plan Assessment and Plan Urologic impression: #1 adult polycystic kidney disease #2 new onset gross painless hematuria likely related to combination of the adult polycystic kidney disease/anticoagulation therapy/recent catheterization Recommendations: #1 hold anticoagulation therapy if possible until hematuria resolves and urine remains clear yellow for at least 24 hours #2 encourage oral intake of fluids while hematuria present to prevent clot formation #3 okay to discharge home from perspective Problem Qualifiers (1) Sepsis: Qualified Codes: A41.9 - Sepsis, unspecified organism Kilo Hughes MD Jun 20, 2017 10:44
--- NOTE | 2017-06-20 11:26 | HHI.PR ---
Subjective Remarks 66 YOWM with larungeal ca, Trach,AMS mental status improved Alert, awake, follows commands On PMV Small amount og trach secretions. had Hematurea, better now Seen by urology Objective Vital Signs Vital Signs Date Time Temp Pulse Resp B/P (MAP) Pulse Ox O2 Delivery O2 Flow Rate FiO2 06/20/17 10:05 99 06/20/17 08:00 97.5 84 19 134/77 (96) 99 06/20/17 04:00 98.1 85 19 133/80 (97) 97 06/20/17 00:00 98.6 81 21 130/66 (87) 97 06/19/17 21:32 95 06/19/17 20:30 Trach Collar 06/19/17 20:00 98.7 93 19 147/71 (96) 100 06/19/17 18:00 97.5 110 20 145/82 (103) 97 06/19/17 17:49 99 21 06/19/17 16:11 97.4 100 18 147/85 (105) 99 06/19/17 12:00 97.5 83 18 129/60 (83) 98 I/O 06/19/17 06/19/17 06/19/17 06/20/17 06/20/17 06/20/17 07:00 15:00 23:00 07:00 15:00 23:00 Intake Total 1260 ml 250 ml 100 ml 1060 ml 1000 ml Output Total 400 ml 800 ml 400 ml Balance 860 ml -550 ml 100 ml 660 ml 1000 ml Intake Oral 480 ml IV Total 100 ml 250 ml 100 ml 580 ml 1000 ml Tube Feeding 560 ml Other 600 ml Output Urine Total 400 ml 800 ml 400 ml # Voids 4 1 # Bowel Movements 2 0 0 Result Diagram: 06/19/1741406/19/17414 Objective Remarks GENERAL: MBMN WM, mild sob SKIN: Warm and dry. HEAD: Normocephalic. EYES: No scleral icterus. No injection or drainage. NECK: Supple, trachea midline. No JVD or lymphadenopathy. has trach CARDIOVASCULAR: Regular rate and rhythm without murmurs, gallops, or rubs. RESPIRATORY: Breath sounds equal bilaterally. No accessory muscle use. GASTROINTESTINAL: Abdomen soft, non-tender, nondistended. has PEG> MUSCULOSKELETAL: No cyanosis, or edema. BACK: Nontender without obvious deformity. No CVA tenderness. A/P Assessment and Plan Resp insuff improved COPD Ca larynx, s/p Trach Hemoptysis resolved CAD PLAN: Trach collar, PMV IV Solumedrol Aerosol nebs Cont Abx per ID Supplement 02 TF DW pt and his daughter ( Oncolgy RN at [facility]) at [facility] Real Coffey MD Jun 20, 2017 11:26
[2017-06-20] MEDS ORDERED: PHARMACY ORDERED LAB ONE (11:45)
--- NOTE | 2017-06-20 12:39 | HHI.HCPN ---
Reason for visit a. To assist with evaluation and management of symptoms including: dyspnea, debility, malnutrition, pain b. To assist medical decision maker(s) with: better understanding of current medical conditions; weighing benefits/burdens of medical treatment options; making medical treatment decisions. . Subjective/Interval History Mr. Briones is a 66-year-old man who presented to [place] [facility] ED on 06/16/2017 for evaluation of altered mental status and respiratory distress. He was subsequently admitted for management of sepsis. Patient has a history of recurrent laryngeal cancer s/p radiation. Patient is not a candidate for chemotherapy or surgery due to his poor performance status and multiple comorbid conditions; he is currently on immunotherapy and receives IV Keytruda q3 weeks. Dr. Melchor is is oncologist. Patient seen in his room, step daughter Antonietta at bedside. Patient is alert and able to follow commands. Patient had gross hematuria and Urology Dr. Hughes consulted to manage hematuria. Urologist ordered UA and culture if indicated and renal ultrasound. Eliquis placed on hold 06/19/17. Patient is afebrile. SBP 130s. O2 saturation high 90s on room air. No recent labwork and imaging. Patient currently denies pain. Patient has a Fentanyl patch 25mcg every 72 hours. Patient required Percocet 10/325 x 2doses over 24 hours and [id number] 7.5/325 in 24 hours. Last bowel movement was recorded on . Discussed hospice with daughter and patient and step daughter stated that patient`s goals still remain aggressive at this time and patient still wants to fight. Patient`s step daughter stated that patient would like to be discharged home and that he already has home health care set up for him. Patient`s step daughter verbalizes that at some point they know that patient will need hospice and when the patient is ready for it they will call hospice. She stated that at this point they "family" would like to honor patient`s wishes to fight. . Family/friend interactions Patient`s step daughter Antonietta at bedside. . Advance Directives Health Care Surrogate: Copy in medical record Advance Directive Specifics Date completed: 02/22/2017 . Health Care Surrogate(s): Patient has designated Antonietta Yuan as his health care surrogate decision maker. Ledy Fortune is designated as the alternate health care surrogate. . Documented care wishes: Completed health care surrogate designation form is accessible and the patient' s EMR. No other known written advanced directives has been completed. . Objective Vital Signs Date Time Temp Pulse Resp B/P (MAP) Pulse Ox O2 Delivery O2 Flow Rate FiO2 06/20/17 10:05 99 06/20/17 08:17 88 06/20/17 08:00 97.5 84 19 134/77 (96) 99 06/20/17 04:00 98.1 85 19 133/80 (97) 97 06/20/17 00:00 98.6 81 21 130/66 (87) 97 06/19/17 21:32 95 06/19/17 20:30 Trach Collar 06/19/17 20:00 98.7 93 19 147/71 (96) 100 06/19/17 18:00 97.5 110 20 145/82 (103) 97 06/19/17 17:49 99 21 06/19/17 16:11 97.4 100 18 147/85 (105) 99 Intake & Output 06/20/17 06/20/17 07:00 19:00 Intake Total 1060 ml 1000 ml Output Total 400 ml Balance 660 ml 1000 ml Intake Oral 480 ml IV Total 580 ml 1000 ml Output Urine Total 400 ml # Bowel Movements 0 Physical Exam CONSTITUTIONAL/GENERAL: This is an ill looking patient, in no apparent distress. TUBES/LINES/DRAINS: Tracheostomy, trach collar, PIV, SKIN: Ecchymoses on upper extremities. Skin temperature appropriate. Not diaphoretic. HEAD: Atraumatic. Normocephalic. EYES: Pupils equal and round. No scleral icterus. No injection or drainage. ENT: Hearing grossly normal. Nose without bleeding or purulent drainage. Moist oral mucosa. NECK: Status post tracheostomy CARDIOVASCULAR: Regular rate and rhythm without murmurs, gallops, or rubs. No JVD. RESPIRATORY/CHEST: Respirations unlabored. Breath sounds diminished bilaterally. No accessory muscle use. GASTROINTESTINAL: Abdomen soft, non-tender, nondistended. No guarding. Bowel sounds present. GENITOURINARY: Without palpable bladder distension. . MUSCULOSKELETAL: Extremities without clubbing, cyanosis, or edema. No mottling or clubbing. LYMPHATICS: No palpable cervical or supraclavicular adenopathy. NEUROLOGICAL: Awake and alert. Responds to questions, follows simple commands. PSYCHIATRIC: No obvious anxiety/depression. no apparent hallucinations or other psychotic thought process. . Diagnostic Tests Laboratory Laboratory Tests Test 06/17/17 18:18 06/18/17 05:29 06/19/17 04:15 06/20/17 11:30 Iron Level 14 MCG/DL (65-175) Total Iron Binding Capacity 112 MCG/DL (250-450) Percent Iron Saturation 12.5 % (20-50) Ferritin 1211 NG/ML (26-388) Vitamin B12 Level 1138 PG/ML (193-986) White Blood Count 9.6 TH/MM3 (4.0-11.0) 7.7 TH/MM3 (4.0-11.0) Red Blood Count 3.50 MIL/MM3 (4.50-5.90) 3.35 MIL/MM3 (4.50-5.90) Hemoglobin 9.5 GM/DL (13.0-17.0) 9.4 GM/DL (13.0-17.0) Hematocrit 29.7 % (39.0-51.0) 28.1 % (39.0-51.0) Mean Corpuscular Volume 84.8 FL (80.0-100.0) 83.9 FL (80.0-100.0) Mean Corpuscular Hemoglobin 27.0 PG (27.0-34.0) 28.0 PG (27.0-34.0) Mean Corpuscular Hemoglobin Concent 31.9 % (32.0-36.0) 33.4 % (32.0-36.0) Red Cell Distribution Width 16.3 % (11.6-17.2) 16.4 % (11.6-17.2) Platelet Count 341 TH/MM3 (150-450) 328 TH/MM3 (150-450) Mean Platelet Volume 8.1 FL (7.0-11.0) 7.8 FL (7.0-11.0) Neutrophils (%) (Auto) 94.2 % (16.0-70.0) 93.4 % (16.0-70.0) Lymphocytes (%) (Auto) 2.8 % (9.0-44.0) 3.6 % (9.0-44.0) Monocytes (%) (Auto) 2.9 % (0.0-8.0) 2.8 % (0.0-8.0) Eosinophils (%) (Auto) 0.0 % (0.0-4.0) 0.0 % (0.0-4.0) Basophils (%) (Auto) 0.1 % (0.0-2.0) 0.2 % (0.0-2.0) Neutrophils # (Auto) 9.1 TH/MM3 (1.8-7.7) 7.2 TH/MM3 (1.8-7.7) Lymphocytes # (Auto) 0.3 TH/MM3 (1.0-4.8) 0.3 TH/MM3 (1.0-4.8) Monocytes # (Auto) 0.3 TH/MM3 (0-0.9) 0.2 TH/MM3 (0-0.9) Eosinophils # (Auto) 0.0 TH/MM3 (0-0.4) 0.0 TH/MM3 (0-0.4) Basophils # (Auto) 0.0 TH/MM3 (0-0.2) 0.0 TH/MM3 (0-0.2) CBC Comment DIFF FINAL DIFF FINAL Differential Comment Blood Urea Nitrogen 44 MG/DL (7-18) 56 MG/DL (7-18) Creatinine 1.69 MG/DL (0.60-1.30) 1.50 MG/DL (0.60-1.30) Random Glucose 137 MG/DL (74-106) 199 MG/DL (74-106) Total Protein 6.0 GM/DL (6.4-8.2) 5.8 GM/DL (6.4-8.2) Albumin 1.8 GM/DL (3.4-5.0) 1.8 GM/DL (3.4-5.0) Calcium Level 8.3 MG/DL (8.5-10.1) 8.3 MG/DL (8.5-10.1) Phosphorus Level 4.3 MG/DL (2.5-4.9) 3.1 MG/DL (2.5-4.9) Magnesium Level 2.3 MG/DL (1.5-2.5) 2.4 MG/DL (1.5-2.5) Alkaline Phosphatase 91 U/L (45-117) 86 U/L (45-117) Aspartate Amino Transf (AST/SGOT) 23 U/L (15-37) 19 U/L (15-37) Alanine Aminotransferase (ALT/SGPT) 16 U/L (12-78) 18 U/L (12-78) Total Bilirubin 0.3 MG/DL (0.2-1.0) 0.3 MG/DL (0.2-1.0) Sodium Level 132 MEQ/L (136-145) 134 MEQ/L (136-145) Potassium Level 5.5 MEQ/L (3.5-5.1) 5.1 MEQ/L (3.5-5.1) Chloride Level 99 MEQ/L (98-107) 100 MEQ/L (98-107) Carbon Dioxide Level 25.6 MEQ/L (21.0-32.0) 26.0 MEQ/L (21.0-32.0) Anion Gap 7 MEQ/L (5-15) 8 MEQ/L (5-15) Estimat Glomerular Filtration Rate 41 ML/MIN (>89) 47 ML/MIN (>89) Random Vancomycin Level 19.7 COMMENT Result Diagram: 06/19/17 0415 06/19/17414 Assessment and Plan Disease Oriented Problem List: (1) COPD (chronic obstructive pulmonary disease) (2) Tracheostomy dependent (3) Carotid artery disease (4) Diabetes mellitus (5) Elevated troponin I level (6) PVD (peripheral vascular disease) (7) ROSALINO (acute kidney injury) (8) Hyperlipidemia (9) Hypertension (10) Congestive heart failure (CHF) (11) Acute respiratory failure (12) Chronic respiratory failure (13) Laryngeal cancer (14) SIRS due to infectious process without acute organ dysfunction (15) Sepsis Symptom Scale: (1) Debility 0-10 Scale: Unable to quantify (2) Malnutrition 0-10 Scale: Unable to quantify Pertinent Non-Medical Issues Psychosocial: Patient was born and raised in [place]. 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 The patient has lived with his in [place] several years. He has no biological children but has 4 stepdaughters. Antonietta Monroeabria (daughter) is primary health care surrogate. She is a nurse working in [employer]. Triny Fortune (daughter), works at [employer]. Spiritual: No judaism affiliation Legal: Antonietta Yuan (primary [facility]) [phone] or [phone]. Triny Fortune (alternate [facility]): [phone] or [phone] or [phone] Ethical issues impacting care: No known ethical issues impacting care at this time. . Important Contacts Antonietta Yuan. (primary [facility]): [phone] or [phone] Triny Fortune (alternate [facility]): [phone]. Work: or . 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 Pt also have underlying CAD, CKD, occluded right carotid artery, deconditioning, malnutrition, pneumonia, and confusion at times. Patient has been hospitalized multiple times since September, secondary to respiratory distress, aspiration, pneumonia and sepsis. Would be appropriate fo hospice if goals of care were to transition to comfort measures only. . Code Status: Full Code Plan * FULL CODE * Decision-making: Unable to access patient's insight and judgement related to patient's clinical condition. Patient has designated Antonietta Yuan as his health care surrogate decision maker. Ledy Fortune is designated as the alternate health care surrogate. Completed forms are accessible and the patient 's EMR. * GOALS AGGRESSIVE : 06/20/17-Patient`s step daughter stated that patient would like to be discharged home and that he already has home health care set up for him. Patient`s step daughter verbalizes that at some point they know that patient will need hospice and when the patient is ready for it they will call hospice. She stated that at this point they "family" would like to honor patient `s wishes to fight. * Worsening performance status, overall poor prognosis. Patient would be appropriate for hospice if goals of care were to transition to comfort measures only. * Symptom management-debility: Patient with a history of laryngeal cancer diagnosed in 2016 s/p tracheostomy and PEG tube placement. Patient has been hospitalized multiple times since September, secondary to respiratory distress, aspiration, pneumonia and sepsis. Patient is severely deconditioned, increasingly fatigued with episodes of confusion/ anxiety. * Symptom management - pain: Patient observed grimacing on exam, reporting severe pain in his back. Patient has orders for Fentanyl Duragesic patch 25g every 72 hours and multiple PRN medications. 24-hour PRN totals: [place] 7.5- 325mg x 1 and Percocet 10-325mg x 2. Recommendations to discontinue either PRN [place] or PRN Percocet. * Symptom management - malnutrition: Status post PEG tube placement. Patient has lost approximately 20 kg in the past 12 months. BMI: 18.3. 06/20/17 Total protein 5.8, albumin 1.8. Dietary was consulted for recommendations. * Palliative care will continue to follow this patient throughout his hospitalization to establish trust, assist with symptom management and clarification of medical treatment goals. . Attestation To help prompt me to consider important information that might be impacting today's encounter and assessment, information from prior notes written by myself or my colleagues may have been "brought forward" into today's note. My signature on this note, however, is an attestation that I personally performed the exam, history, and/or decision-making noted today, and, unless otherwise indicated, the interactions with patient, family, and staff as well as the review of records all occurred today. I also attest that the listed assessment and stated plan reflect my best clinical judgment today based on the combination of historical information, prior notes, and today's exam/ interactions. When time spent is documented, it refers only to time spent today by the signer, or if indicated, combined time spent today by collaborating physician/nurse practitioner. . [place] Jun 20, 2017 12:39
--- NOTE | 2017-06-20 13:03 | RADRPT ---
EXAM DATE/TIME: 06/20/2017 11:40 [facility] COMPARISON: No previous studies available for comparison. INDICATIONS : Hematuria. MEDICAL HISTORY : Hypercholesterolemia. Gastroesophageal reflux disease. Chronic obstructive pulmonary disease. Cerebro vascular accident. Myocardial infarction. Congestive heart failure. Peripheral vascular disease. Tuberculosis. Hypertension. Renal failure. Kidney stones. Fibromyalgia. Arthritis. Gout. Diabe bigg. Polycystic kidney disease. Carcinoma, laryngeal. Chemotherapy. Blood transfusion. MRSA. Cl ostridium difficile. SURGICAL HISTORY : Tonsillectomy. Cholecystectomy. Coronary artery bypass graft. Cardiac catheterization. Coronary s tent. Left shoulder screw. ENCOUNTER: Initial ACUITY: 1 day PAIN SCORE: 0/10 LOCATION: Bilateral flank MEASUREMENTS: RIGHT KIDNEY: 11.5 x 5.5 x 6.7 cm LEFT KIDNEY: 10.6 x 5.9 x 6.2 cm FINDINGS: Both kidneys demonstrate numerous bilateral small and large renal cysts most characteristic of polycy stic renal disease. There is a reported history of such. No definite hydronephrosis. Within the bladder there is a complex hyperechoic mass along the posterior aspect measuring up to 3.6 x 3.4 x 5.4 cm. This may represent a hematoma especially given hematuria. Post followup recommended. CONCLUSION: 1. Polycystic kidneys. 2. Dependent mass in the bladder, possibly a hematoma. Close followup recommended. Guanakito Roy MD on June 20, 2017 at 12:59 Board Certified Radiologist. This report was verified electronically.
[2017-06-20 13:23] LABS: AUTOMATED NEUTROPHIL # 7.7 TH/MM3 (1.8-7.7); BASOPHIL % 0.1 % (0.0-2.0); HEMATOCRIT 29.5 % (39.0-51.0); HEMO FLAGS DIFF FINAL; LYMPH % 2.1 % (9.0-44.0); LYMPHOCYTE # 0.2 TH/MM3 (1.0-4.8); MEAN CELL VOLUME 83.6 FL (80.0-100.0); MEAN CORPUSCULAR HEMOGLOBIN 26.8 PG (27.0-34.0); MEAN CORPUSCULAR HGB CONC 32.1 % (32.0-36.0); MONO % 3.5 % (0.0-8.0); NEUT % 94.3 % (16.0-70.0); PLATELET COUNT 349 TH/MM3 (150-450); RED BLOOD COUNT 3.53 MIL/MM3 (4.50-5.90); RED CELL DISTRIBUTION WIDTH 16.5 % (11.6-17.2); WHITE BLOOD COUNT 8.2 TH/MM3 (4.0-11.0)
[2017-06-20 13:59] LABS: BLOOD, URINE LARGE (NEG); GLUCOSE,URINE NEG (NEG); KETONE, URINE TRACE mg/dL (NEG); NITRITE,URINE NEG (NEG); PH, URINE 5.5 (5.0-8.5); URINE COLOR LIGHT-RED (YELLW/STRAW)
[2017-06-20 13:59] LABS: ALT (GPT) 21 U/L (12-78); ANION GAP 8 MEQ/L (5-15); AST (GOT) 17 U/L (15-37); BICARBONATE 25.3 MEQ/L (21.0-32.0); BLOOD UREA NITROGEN 51 MG/DL (7-18); CHLORIDE 101 MEQ/L (98-107); GLOMERULAR FILTRATION RATE 53 ML/MIN (>89); POTASSIUM 4.6 MEQ/L (3.5-5.1); SODIUM (NA) 134 MEQ/L (136-145)
[2017-06-20 14:00] LABS: COMMENT (UR) CULT NOT INDICATED; CULTURE IF INDICATED CULT NOT INDICATED
[2017-06-20 14:02] LABS: ALKALINE PHOSPHATASE 84 U/L (45-117); TOTAL BILIRUBIN ADULT 0.4 MG/DL (0.2-1.0)
[2017-06-20] MEDS: ACETAMINOPHEN/HYDROcodone 325 MG/7.5 MG TAB PO PRN ×2 (14:17→18:57)
--- NOTE | 2017-06-20 15:11 | HHI.PR ---
Subjective Remarks Patient is still having vi hematuria. Discussed with his daughter and his at the bedside. His H&H is stable today. Objective Vitals Vital Signs Date Time Temp Pulse Resp B/P (MAP) Pulse Ox O2 Delivery O2 Flow Rate FiO2 06/20/17 12:00 97.4 101 19 149/77 (101) 99 06/20/17 10:05 99 06/20/17 08:17 88 06/20/17 08:00 97.5 84 19 134/77 (96) 99 06/20/17 04:00 98.1 85 19 133/80 (97) 97 06/20/17 00:00 98.6 81 21 130/66 (87) 97 06/19/17 21:32 95 06/19/17 20:30 Trach Collar 06/19/17 20:00 98.7 93 19 147/71 (96) 100 06/19/17 18:00 97.5 110 20 145/82 (103) 97 06/19/17 17:49 99 21 06/19/17 16:11 97.4 100 18 147/85 (105) 99 I/O 06/19/17 06/19/17 06/19/17 06/20/17 06/20/17 06/20/17 07:00 15:00 23:00 07:00 15:00 23:00 Intake Total 1260 ml 250 ml 100 ml 1060 ml 1000 ml Output Total 400 ml 800 ml 400 ml Balance 860 ml -550 ml 100 ml 660 ml 1000 ml Intake Oral 480 ml IV Total 100 ml 250 ml 100 ml 580 ml 1000 ml Tube Feeding 560 ml Other 600 ml Output Urine Total 400 ml 800 ml 400 ml # Voids 4 1 # Bowel Movements 2 0 0 Result Diagram: 06/20/17 1215 06/20/17 1215 Imaging Last Impressions Renal Ultrasound 06/20/17 0000 Signed Impressions: Service Date/Time: Tuesday, June 20, 2017 11:40 - CONCLUSION: 1. Polycystic kidneys. 2. Dependent mass in the bladder, possibly a hematoma. Close followup recommended. Guanakito Roy MD Chest X-Ray 06/17/17 0600 Signed Impressions: Service Date/Time: Saturday, June 17, 2017 04:31 - CONCLUSION: 1. No acute cardiopulmonary disease. Chivo Bates MD Head CT 06/16/17 1220 Signed Impressions: Service Date/Time: Friday, June 16, 2017 12:42 - CONCLUSION: 1. Cortical atrophy. 2. 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 3. No acute intracranial abnormality identified. Dion Coto MD Objective Remarks GENERAL: Patient appears frail and appear much older than stated age. CARDIOVASCULAR: Normal rate and regular rhythm without murmurs, gallops, or rubs. RESPIRATORY: Good respiratory efforts. Breath sounds equal and clear to auscultation bilaterally. GASTROINTESTINAL: Abdomen soft, non-tender, PEG tube in place. Normal and active bowel sounds. MUSCULOSKELETAL: Extremities without cyanosis, or edema. NEURO: Alert & Oriented to self, some confusions. Moves all extremities but generally weak.. PSYCH: Calm. Procedures NONE A/P Problem List: (1) Tracheostomy dependent ICD Code: Z93.0 - Tracheostomy status Status: Acute (2) Laryngeal cancer ICD Code: C32.9 - Malignant neoplasm of larynx, unspecified Status: Chronic (3) Chronic respiratory failure ICD Code: J96.10 - Chronic respiratory failure, unspecified whether with hypoxia or hypercapnia Status: Acute (4) Acute respiratory failure ICD Code: J96.00 - Acute respiratory failure, unspecified whether with hypoxia or hypercapnia Status: Resolved (5) Aspiration pneumonia ICD Code: J69.0 - Pneumonitis due to inhalation of food and vomit Status: Acute (6) Acute respiratory failure with hypoxemia ICD Code: J96.01 - Acute respiratory failure with hypoxemia Status: Acute (7) SIRS due to infectious process without acute organ dysfunction ICD Code: A41.9 - Sepsis, unspecified organism Status: Acute (8) Shortness of breath ICD Code: R06.02 - Shortness of breath Status: Acute (9) Failure to thrive in adult ICD Code: R62.7 - Adult failure to thrive Status: Chronic (10) COPD (chronic obstructive pulmonary disease) ICD Code: J44.9 - Chronic obstructive pulmonary disease, unspecified Status: Chronic (11) Sepsis ICD Code: A41.9 - Sepsis, unspecified organism Status: Acute (12) Confusion ICD Code: R41.0 - Disorientation, unspecified Status: Acute (13) Weakness ICD Code: R53.1 - Weakness Status: Acute Assessment and Plan In summary, this is a 66-year-old male with history of laryngeal cancer, failing standard therapy, not a candidate for further chemotherapy due to poor functional status, oncology recommended hospice. The patient also has a history of DVT, he is on Eliquis. Multiple other comorbidities such as CAD, GERD, hypertension, PVD, diabetes mellitus, chronic pain who was admitted to the hospital for worsening mental status, respiratory distress, overall functional decline. Patient respiratory status he is close to his baseline. He developed hematuria and has been evaluated by urology who advised conservative management by holding Eliquis and follow for urine to clear up. Respiratory failure with worsening respiratory status - Status post vancomycin and cefepime. Continue on Levaquin. Pulmonology following. - Transition to oral prednisone. - Continue breathing treatment as needed. Hematuria: Patient previously had a [place]. This could be related to traumatic [place]. Renal ultrasound shows a dependent mass in the bladder, possibly a hematoma. Urology consulted on the patient. I discussed with Dr. Hughes today. He recommends conservative management only for now. Patient is probably passing some clots related to the [place]. Follow urine. Patient can follow-up with him outpatient in a few weeks. Altered mental status suspect secondary to infection, resolved. Mental status is at baseline. Laryngeal cancer status post tracheostomy Dysphagia - Failed initial treatment. Not a candidate for chemotherapy or surgery due to poor performance status. Oncology recommends hospice. Family is still opting to pursue aggressive treatment for now. Current goal is to take him home. They would consider hospice if and when he declines further. Chronic DVT Peripheral vascular occlusive disease -Continue to hold Eliquis today given persistent hematuria. Polycystic kidney disease with chronic elevated creatinine - continue on fluids - Urology consulted for hematuria. Appreciate input. Elevated troponin with suspected demand ischemia: No intervention per cardiology. Continue beta jessica. Monitor. Diabetes mellitus, chronic - ACCU checks, sliding scale, cover as needed. Monitor. GERD continue on PPI Chronic pain: Continue fentanyl patch. Continue Percocet. Morphine IV available PRN. DVT prophylaxis: Ambulation. SCDs. Continue to hold Eliquis for now due to hematuria. Discharge Planning Continue to monitor urine Urine clear up and H&H remained stable, he can be discharged home tomorrow with home health to follow up outpatient with urology. Will also need recommendations from hematology regarding timing for restarting Eliquis. Problem Qualifiers (1) Sepsis: Qualified Codes: A41.9 - Sepsis, unspecified organism Kyle Kam MD Jun 20, 2017 15:11
[2017-06-20] MEDS: ALPRAZolam 0.25 MG TAB PO PRN (18:57)
[2017-06-20] MEDS: predniSONE 20 MG TAB PO SCH (20:42)
[2017-06-21] VITALS (9 sets, daily range): BP systolic 133–148; BP diastolic 73–97; PULSE 63–120; RESP 16–22; TEMP 97.8–98.1; O2SAT 95–98
[2017-06-21] MEDS: ACETAMINOPHEN/HYDROcodone 325 MG/7.5 MG TAB PO PRN ×4 (00:31→21:33)
[2017-06-21] MEDS: FREE WATER PEG SCH ×3 (03:00→18:50)
[2017-06-21] MEDS: ALPRAZolam 0.25 MG TAB PO PRN ×3 (03:56→22:57)
[2017-06-21] MEDS: SODIUM CHLOR 0.9% 1000 ML INJ 1,000 ML IV SCH ×3 (03:56→17:57)
[2017-06-21 05:37] LABS: MEAN CELL VOLUME 83.9 FL (80.0-100.0); MEAN CORPUSCULAR HEMOGLOBIN 26.5 PG (27.0-34.0); MEAN CORPUSCULAR HGB CONC 31.5 % (32.0-36.0); PLATELET COUNT 305 TH/MM3 (150-450); RED BLOOD COUNT 3.33 MIL/MM3 (4.50-5.90); RED CELL DISTRIBUTION WIDTH 16.2 % (11.6-17.2); REVIEW FLAG FINAL; WHITE BLOOD COUNT 11.3 TH/MM3 (4.0-11.0)
[2017-06-21] MEDS: ONDANSETRON HCL 4 MG/2 ML VIAL IVP PRN ×2 (05:55→21:32)
[2017-06-21 05:57] LABS: POTASSIUM 4.8 MEQ/L (3.5-5.1)
[2017-06-21] MEDS: DOCUSATE SODIUM 50 MG/SENNA 8.6 MG TAB PO SCH ×2 (08:53→21:00)
[2017-06-21] MEDS: POLYETHYLENE GLYCOL 17 GM PKG G-TUBE SCH (08:53)
[2017-06-21] MEDS: SODIUM CHLORIDE 0.9% FLUSH 10 ML FLUSH IV FLUSH SCH ×2 (09:00→21:00)
[2017-06-21] MEDS: RESP: ALBUTEROL 2.5 MG/IPRATROPIUM 0.5 MG NEB (PRN) INH ×2 (09:02→22:10)
[2017-06-21] MEDS: HYOSCYAMINE 0.125 MG TAB G-TUBE SCH ×2 (10:17→21:33)
[2017-06-21] MEDS: LANSOPRAZOLE SOLUTAB 30 MG TAB NG SCH (10:17)
[2017-06-21] MEDS: METOPROLOL TARTRATE 25 MG TAB PEG SCH ×2 (10:18→21:34)
[2017-06-21] MEDS: predniSONE 20 MG TAB PO SCH ×2 (10:18→21:33)
[2017-06-21] MEDS: CITALOPRAM HYDROBROMIDE 20 MG TAB PO SCH (10:18)
[2017-06-21] MEDS: QUEtiapine FUMARATE 25 MG TAB PO SCH ×2 (10:18→21:34)
[2017-06-21] MEDS: LEVOFLOXACIN 750 MG TAB PO SCH (10:19)
[2017-06-21] MEDS: LORATADINE 10 MG TAB G-TUBE SCH (10:20)
[2017-06-21] MEDS: INSULIN ASPART SUPPLEMENTAL SCALE SQ SCH ×3 (12:49→22:56)
--- NOTE | 2017-06-21 13:18 | HHI.PR ---
Subjective Remarks Follow-up hematuria. Improving hematuria. Dw RN Objective Vitals Vital Signs Date Time Temp Pulse Resp B/P (MAP) Pulse Ox O2 Delivery O2 Flow Rate FiO2 06/21/17 12:00 97.9 100 20 148/73 (98) 98 06/21/17 09:06 96 21 06/21/17 08:00 103 06/21/17 08:00 97.8 101 16 133/79 (97) 98 06/21/17 04:00 98.1 120 22 144/97 (113) 97 06/21/17 00:00 97.9 63 21 136/79 (98) 96 06/20/17 20:23 106 06/20/17 20:00 97.9 110 19 133/77 (95) 97 06/20/17 20:00 Room Air Trach Collar 06/20/17 17:49 99 21 06/20/17 16:00 97.4 97 19 139/71 (93) 98 06/20/17 16:00 Room Air Trach Collar I/O 06/20/17 06/20/17 06/20/17 06/21/17 06/21/17 06/21/17 07:00 15:00 23:00 07:00 15:00 23:00 Intake Total 1060 ml 1000 ml 2010 ml 1000 ml Output Total 400 ml 2000 ml 850 ml Balance 660 ml 1000 ml 10 ml 150 ml Intake Oral 480 ml 960 ml 0 ml IV Total 580 ml 1000 ml 1000 ml Tube Feeding 750 ml Other 300 ml Output Urine Total 400 ml 2000 ml 850 ml Bladder Scan Volume Amount 3 ml # Bowel Movements 0 2 Result Diagram: 06/21/17 0430 06/21/17 0430 Imaging Last Impressions Renal Ultrasound 06/20/17 0000 Signed Impressions: Service Date/Time: Tuesday, June 20, 2017 11:40 - CONCLUSION: 1. Polycystic kidneys. 2. Dependent mass in the bladder, possibly a hematoma. Close followup recommended. Guanakito Roy MD Chest X-Ray 06/17/17 0600 Signed Impressions: Service Date/Time: Saturday, June 17, 2017 04:31 - CONCLUSION: 1. No acute cardiopulmonary disease. Chivo Bates MD Head CT 06/16/17 1220 Signed Impressions: Service Date/Time: Friday, June 16, 2017 12:42 - CONCLUSION: 1. Cortical atrophy. 2. 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 3. No acute intracranial abnormality identified. Dion Coto MD Objective Remarks GENERAL: Patient appears frail and appear much older than stated age. CARDIOVASCULAR: Normal rate and regular rhythm without murmurs, gallops, or rubs. RESPIRATORY: Good respiratory efforts. Breath sounds equal and clear to auscultation bilaterally. GASTROINTESTINAL: Abdomen soft, non-tender, PEG tube in place. Normal and active bowel sounds. MUSCULOSKELETAL: Extremities without cyanosis, or edema. NEURO: Alert & Oriented to self, some confusions. Moves all extremities but generally weak.. PSYCH: Calm. Procedures NONE A/P Problem List: (1) Tracheostomy dependent ICD Code: Z93.0 - Tracheostomy status Status: Acute (2) Laryngeal cancer ICD Code: C32.9 - Malignant neoplasm of larynx, unspecified Status: Chronic (3) Chronic respiratory failure ICD Code: J96.10 - Chronic respiratory failure, unspecified whether with hypoxia or hypercapnia Status: Acute (4) Acute respiratory failure ICD Code: J96.00 - Acute respiratory failure, unspecified whether with hypoxia or hypercapnia Status: Resolved (5) Aspiration pneumonia ICD Code: J69.0 - Pneumonitis due to inhalation of food and vomit Status: Acute (6) Acute respiratory failure with hypoxemia ICD Code: J96.01 - Acute respiratory failure with hypoxemia Status: Acute (7) SIRS due to infectious process without acute organ dysfunction ICD Code: A41.9 - Sepsis, unspecified organism Status: Acute (8) Shortness of breath ICD Code: R06.02 - Shortness of breath Status: Acute (9) Failure to thrive in adult ICD Code: R62.7 - Adult failure to thrive Status: Chronic (10) COPD (chronic obstructive pulmonary disease) ICD Code: J44.9 - Chronic obstructive pulmonary disease, unspecified Status: Chronic (11) Sepsis ICD Code: A41.9 - Sepsis, unspecified organism Status: Acute (12) Confusion ICD Code: R41.0 - Disorientation, unspecified Status: Acute (13) Weakness ICD Code: R53.1 - Weakness Status: Acute Assessment and Plan In summary, this is a 66-year-old male with history of laryngeal cancer, failing standard therapy, not a candidate for further chemotherapy due to poor functional status, oncology recommended hospice. The patient also has a history of DVT, he is on Eliquis. Multiple other comorbidities such as CAD, GERD, hypertension, PVD, diabetes mellitus, chronic pain who was admitted to the hospital for worsening mental status, respiratory distress, overall functional decline. Patient respiratory status he is close to his baseline. He developed hematuria and has been evaluated by urology who advised conservative management by holding Eliquis and follow urine to clear up. Respiratory failure with worsening respiratory status. Resolved currently o RA with capped trach - Status post vancomycin and cefepime. Continue on Levaquin. Pulmonology following. - Transition to oral prednisone. - Continue breathing treatment as needed. Hematuria: Patient previously had a Arroyo. This could be related to traumatic Arroyo. Renal ultrasound shows a dependent mass in the bladder, possibly a hematoma. Urology recommends conservative management only for now. Patient can follow-up with him outpatient in a few weeks. Still with hematuria . Ct IVF consider CBI if worse Altered mental status suspect secondary to infection, resolved. Mental status is at baseline. Laryngeal cancer status post tracheostomy Dysphagia - Failed initial treatment. Not a candidate for chemotherapy or surgery due to poor performance status. Oncology recommends hospice. Family is still opting to pursue aggressive treatment for now. Current goal is to take him home. They would consider hospice if and when he declines further. Chronic DVT Peripheral vascular occlusive disease -Continue to hold Eliquis given persistent hematuria. May restart after at least 24 hrs of clear yellow urine Polycystic kidney disease with chronic elevated creatinine - continue on fluids - Urology consulted for hematuria. Appreciate input. Elevated troponin with suspected demand ischemia: No intervention per cardiology. Continue beta jessica. Monitor. Diabetes mellitus, chronic - ACCU checks, sliding scale, cover as needed. Monitor. GERD continue on PPI Chronic pain: Continue fentanyl patch. Continue Percocet. Morphine IV available PRN. DVT prophylaxis: Ambulation. SCDs. Continue to hold Eliquis for now due to hematuria. Discharge Planning Urine clear up and H&H remained stable, he can be discharged home tomorrow with home health to follow up outpatient with urology. Restart Eliquis after 24 hours of nonbloody urine per . Problem Qualifiers (1) Sepsis: Qualified Codes: A41.9 - Sepsis, unspecified organism Minor King MD Jun 21, 2017 13:18
[2017-06-22] VITALS: BP 146/75; PULSE 98; RESP 20; TEMP 97.7; O2SAT 97
[2017-06-22] MEDS: SODIUM CHLOR 0.9% 1000 ML INJ 1,000 ML IV SCH (02:17)
[2017-06-22] MEDS: FREE WATER PEG SCH (02:59)
[2017-06-22] MEDS: ACETAMINOPHEN/HYDROcodone 325 MG/7.5 MG TAB PO PRN ×2 (03:12→11:36)
[2017-06-22 05:00] VITALS: BP 148/68; PULSE 68; RESP 20; TEMP 97.7; O2SAT 78
[2017-06-22 06:58] LABS: AUTOMATED NEUTROPHIL # 14.3 TH/MM3 (1.8-7.7); BASOPHIL % 0.1 % (0.0-2.0); EOSINOPHIL % 0.1 % (0.0-4.0); HEMATOCRIT 30.1 % (39.0-51.0); HEMO FLAGS DIFF FINAL; LYMPH % 2.5 % (9.0-44.0); LYMPHOCYTE # 0.4 TH/MM3 (1.0-4.8); MEAN CELL VOLUME 84.4 FL (80.0-100.0); MEAN CORPUSCULAR HEMOGLOBIN 26.4 PG (27.0-34.0); MEAN CORPUSCULAR HGB CONC 31.2 % (32.0-36.0); MONO % 6.5 % (0.0-8.0); NEUT % 90.8 % (16.0-70.0); PLATELET COUNT 349 TH/MM3 (150-450); RED BLOOD COUNT 3.56 MIL/MM3 (4.50-5.90); RED CELL DISTRIBUTION WIDTH 16.5 % (11.6-17.2); WHITE BLOOD COUNT 15.7 TH/MM3 (4.0-11.0)
[2017-06-22 08:00] VITALS: BP 127/78; PULSE 116; PULSE 119; RESP 18; TEMP 97.5; O2SAT 98
[2017-06-22] MEDS ORDERED: fentaNYL 50 MCG/HR PATCH T-DERMAL SCH (08:15)
[2017-06-22] MEDS: ALPRAZolam 0.25 MG TAB PO PRN (08:22)
[2017-06-22] MEDS: DOCUSATE SODIUM 50 MG/SENNA 8.6 MG TAB PO SCH (08:22)
[2017-06-22] MEDS: LANSOPRAZOLE SOLUTAB 30 MG TAB NG SCH (08:22)
[2017-06-22] MEDS: LEVOFLOXACIN 750 MG TAB PO SCH (08:22)
[2017-06-22] MEDS: LORATADINE 10 MG TAB G-TUBE SCH (08:23)
[2017-06-22] MEDS: CITALOPRAM HYDROBROMIDE 20 MG TAB PO SCH (08:23)
[2017-06-22] MEDS: HYOSCYAMINE 0.125 MG TAB G-TUBE SCH (08:23)
[2017-06-22] MEDS: INSULIN ASPART SUPPLEMENTAL SCALE SQ SCH ×2 (08:25→12:40)
[2017-06-22] MEDS: POLYETHYLENE GLYCOL 17 GM PKG G-TUBE SCH (08:32)
[2017-06-22] MEDS: QUEtiapine FUMARATE 25 MG TAB PO SCH (08:33)
[2017-06-22] MEDS: predniSONE 20 MG TAB PO SCH (08:41)
[2017-06-22] MEDS: METOPROLOL TARTRATE 25 MG TAB PEG SCH (08:41)
[2017-06-22] MEDS: SODIUM CHLORIDE 0.9% FLUSH 10 ML FLUSH IV FLUSH SCH (08:50)
--- NOTE | 2017-06-22 08:50 | HHI.FF ---
Face to Face Verification Diagnosis: (1) Generalized weakness (2) Hematuria (3) Acute on chronic kidney failure (4) CAD (coronary artery disease) (5) Elevated troponin I level (6) Congestive heart failure (CHF) (7) Tracheostomy dependent (8) Laryngeal cancer (9) Acute respiratory failure Physical Therapy Order: Evaluate and Treat, Improve ambulation, Strength and gait training Occupational Therapy Order: Evaluate and Treat, Improve ADL, Gross motor coordination Home Health Nursing Order: Medical education Signs/symptoms of disease process Medication education-adverse effect I have seen patient Johnny Iverson on 06/22/17. My clinical findings support the need for the requested home health care services because: Deconditioned w/ increased weakness Limited ability to care for self I certify that my clinical findings support that this patient is homebound because: Unsteady gait/balance Unsafe to leave home unassisted Matilda Bradford Jun 22, 2017 08:50
--- NOTE | 2017-06-22 08:58 | HHI.IDPN ---
Subjective Subjective Remarks doing good He apparently developped hematuria over the last few days, which cleared substantially today He is c/o diarrhea: 5 liquid BMs today Breathing OK, cough at b/l using passimuir valve Antibiotics levaquine Allergies: Coded Allergies: amlodipine (Unverified Allergy, Severe, 06/16/17) atorvastatin (Unverified Allergy, Severe, 06/16/17) niacin (Unverified Allergy, Severe, 06/16/17) CAUSES HIM TO FEEL HOT pravastatin (Unverified Allergy, Severe, 06/16/17) simvastatin (Unverified Allergy, Severe, 06/16/17) fish oil (Unverified Allergy, Intermediate, Diarrhea, 06/16/17) Objective . Vital Signs Date Time Temp Pulse Resp B/P (MAP) Pulse Ox O2 Delivery O2 Flow Rate FiO2 06/22/17 05:00 97.7 68 20 148/68 (94) 78 06/22/17 04:00 Room Air 06/22/17 00:00 97.7 98 20 146/75 (98) 97 06/22/17 00:00 Room Air 06/21/17 22:18 95 21 06/21/17 20:18 114 06/21/17 20:00 Room Air 06/21/17 20:00 113 20 143/81 (101) 97 06/21/17 16:00 97.9 101 20 145/73 (97) 98 06/21/17 12:00 97.9 100 20 148/73 (98) 98 06/21/17 09:06 96 21 06/21/17 09:00 Room Air . Laboratory Tests Test 06/20/17 12:15 06/21/17 04:30 06/22/17 06:35 White Blood Count 8.2 TH/MM3 11.3 TH/MM3 15.7 TH/MM3 Red Blood Count 3.53 MIL/MM3 3.33 MIL/MM3 3.56 MIL/MM3 Hemoglobin 9.5 GM/DL 8.8 GM/DL 9.4 GM/DL Hematocrit 29.5 % 28.0 % 30.1 % Mean Corpuscular Volume 83.6 FL 83.9 FL 84.4 FL Mean Corpuscular Hemoglobin 26.8 PG 26.5 PG 26.4 PG Mean Corpuscular Hemoglobin Concent 32.1 % 31.5 % 31.2 % Red Cell Distribution Width 16.5 % 16.2 % 16.5 % Platelet Count 349 TH/MM3 305 TH/MM3 349 TH/MM3 Mean Platelet Volume 8.0 FL 8.1 FL 8.0 FL Neutrophils (%) (Auto) 94.3 % 90.8 % Lymphocytes (%) (Auto) 2.1 % 2.5 % Monocytes (%) (Auto) 3.5 % 6.5 % Eosinophils (%) (Auto) 0.0 % 0.1 % Basophils (%) (Auto) 0.1 % 0.1 % Neutrophils # (Auto) 7.7 TH/MM3 14.3 TH/MM3 Lymphocytes # (Auto) 0.2 TH/MM3 0.4 TH/MM3 Monocytes # (Auto) 0.3 TH/MM3 1.0 TH/MM3 Eosinophils # (Auto) 0.0 TH/MM3 0.0 TH/MM3 Basophils # (Auto) 0.0 TH/MM3 0.0 TH/MM3 CBC Comment DIFF FINAL DIFF FINAL Differential Comment Laboratory Tests Test 06/20/17 12:15 06/21/17 04:30 Blood Urea Nitrogen 51 MG/DL 52 MG/DL Creatinine 1.33 MG/DL 1.27 MG/DL Random Glucose 181 MG/DL 191 MG/DL Total Protein 6.1 GM/DL Albumin 2.0 GM/DL Calcium Level 8.2 MG/DL 8.2 MG/DL Alkaline Phosphatase 84 U/L Aspartate Amino Transf (AST/SGOT) 17 U/L Alanine Aminotransferase (ALT/SGPT) 21 U/L Total Bilirubin 0.4 MG/DL Sodium Level 134 MEQ/L 136 MEQ/L Potassium Level 4.6 MEQ/L 4.8 MEQ/L Chloride Level 101 MEQ/L 104 MEQ/L Carbon Dioxide Level 25.3 MEQ/L 25.0 MEQ/L Anion Gap 8 MEQ/L 7 MEQ/L Estimat Glomerular Filtration Rate 53 ML/MIN 56 ML/MIN Imaging Last Impressions Renal Ultrasound 06/20/17 0000 Signed Impressions: Service Date/Time: Tuesday, June 20, 2017 11:40 - CONCLUSION: 1. Polycystic kidneys. 2. Dependent mass in the bladder, possibly a hematoma. Close followup recommended. Guanakito Roy MD Chest X-Ray 06/17/17 0600 Signed Impressions: Service Date/Time: Saturday, June 17, 2017 04:31 - CONCLUSION: 1. No acute cardiopulmonary disease. Chivo Bates MD Head CT 06/16/17 1220 Signed Impressions: Service Date/Time: Friday, June 16, 2017 12:42 - CONCLUSION: 1. Cortical atrophy. 2. 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 3. No acute intracranial abnormality identified. Dion Coto MD Physical Exam CONSTITUTIONAL/GENERAL: This is a thin cachectic chronically ill appearing patient, in no apparent distress. TUBES/LINES/DRAINS: PORT in place R chest - looks OK SKIN: No jaundice, rashes, or lesions. NECK: Trach in place with no erythema around, no drainage Passimuir valve in place CARDIOVASCULAR: Regular rate and rhythm without murmurs, gallops, or rubs. No JVD. Peripheral pulses symmetric. RESPIRATORY/CHEST: Symmetric, unlabored respirations. Clear to auscultation. Breath sounds equal bilaterally. No wheezes, rales, or rhonchi. GASTROINTESTINAL: Abdomen soft, non-tender, nondistended. No guarding. Bowel sounds present. PEG in pl;karen GENITOURINARY: Without palpable bladder distension. MUSCULOSKELETAL: Extremities without clubbing, cyanosis, or edema. No joint tenderness or effusion noted. No calf tenderness. No mottling or clubbing. NEUROLOGICAL: Awake and alert. non focal PSYCHIATRIC: calm pleasant Assessment & Plan Remarks Clinical pic of brioonchitis vs Probable colonisation of airways with 4 mixed m /o ? NSTEMI Low grade (prelim) coag ne gstaph bacteremia in the setting s of PORT, remaqins low grade; doubt infx New issue: diarrhea, abx associated New issue: hematuria, improving Rec's: dc levaquine chk stool for Cf.diff OK to dc if no c.diff If c.diff test + will start on tx dw dgtr @ b/s Vicenta Lopez RN, MD Jun 22, 2017 08:58
[2017-06-22] MEDS ORDERED: APIX5TAB PO (09:01)
[2017-06-22] MEDS ORDERED: PRED20 PO (09:01)
[2017-06-22 10:21] VITALS: O2SAT 98
[2017-06-22] MEDS ORDERED: FREE WATER PEG SCH (11:00)
--- NOTE | 2017-06-22 11:43 | HHI.DS ---
Discharge Summary Admission Date Jun 16, 2017 at 16:24 Discharge Date: Jun 22, 2017 Admitting Diagnosis Sepsis (1) Tracheostomy dependent ICD Code: Z93.0 - Tracheostomy status Diagnosis: Principal Status: Acute (2) Laryngeal cancer ICD Code: C32.9 - Malignant neoplasm of larynx, unspecified Status: Chronic (3) Chronic respiratory failure ICD Code: J96.10 - Chronic respiratory failure, unspecified whether with hypoxia or hypercapnia Diagnosis: Principal Status: Acute (4) Acute respiratory failure ICD Code: J96.00 - Acute respiratory failure, unspecified whether with hypoxia or hypercapnia Status: Resolved (5) Aspiration pneumonia ICD Code: J69.0 - Pneumonitis due to inhalation of food and vomit Diagnosis: Secondary Status: Acute (6) Acute respiratory failure with hypoxemia ICD Code: J96.01 - Acute respiratory failure with hypoxemia Diagnosis: Principal Status: Acute (7) SIRS due to infectious process without acute organ dysfunction ICD Code: A41.9 - Sepsis, unspecified organism Diagnosis: Secondary Status: Acute (8) Shortness of breath ICD Code: R06.02 - Shortness of breath Diagnosis: Secondary Status: Acute (9) Failure to thrive in adult ICD Code: R62.7 - Adult failure to thrive Diagnosis: Secondary Status: Chronic (10) COPD (chronic obstructive pulmonary disease) ICD Code: J44.9 - Chronic obstructive pulmonary disease, unspecified Diagnosis: Secondary Status: Chronic (11) Sepsis ICD Code: A41.9 - Sepsis, unspecified organism Diagnosis: Principal Status: Acute (12) Confusion ICD Code: R41.0 - Disorientation, unspecified Diagnosis: Secondary Status: Acute (13) Weakness ICD Code: R53.1 - Weakness Diagnosis: Secondary Status: Acute Procedures NONE Brief History - From Admission Patient is a 66-year-old male with history of laryngeal cancer stage IV, tracheostomy, history of chronic blood clots on Eliquis, coronary artery disease , CABG, COPD, GERD, hypertension, hyperlipidemia, peripheral vascular occlusive disease, diabetes mellitus, chronic pain who presents with acute onset of altered mental status. Per , he was fine until early this morning. This is when he stopped responding to her. Family says last time he was sick, he had MRSA in his sputum. states that she was having to change out his trach multiple times overnight because WAS getting CLOGGED with blood and sputum. Per , he did walk himself to the bathroom early this morning before she noticed the acute change. There is no falls. Patient is unable to provide any history. Last week patient underwent chemotherapy with KEYTRUDA PER DR RIVERA. Patient normally sees Dr. SALAZAR as well as Dr. RIVERA OF ONCOLOGY. CBC/BMP: 06/22/17 0635 06/21/17 0430 Significant Findings Laboratory Tests Test 06/20/17 11:30 06/20/17 12:15 06/20/17 13:22 06/21/17 04:30 Vancomycin Level Trough 24.9 MCG/ML (5.0-10.0) Red Blood Count 3.53 MIL/MM3 (4.50-5.90) 3.33 MIL/MM3 (4.50-5.90) Hemoglobin 9.5 GM/DL (13.0-17.0) 8.8 GM/DL (13.0-17.0) Hematocrit 29.5 % (39.0-51.0) 28.0 % (39.0-51.0) Mean Corpuscular Hemoglobin 26.8 PG (27.0-34.0) 26.5 PG (27.0-34.0) Neutrophils (%) (Auto) 94.3 % (16.0-70.0) Lymphocytes (%) (Auto) 2.1 % (9.0-44.0) Lymphocytes # (Auto) 0.2 TH/MM3 (1.0-4.8) Blood Urea Nitrogen 51 MG/DL (7-18) 52 MG/DL (7-18) Creatinine 1.33 MG/DL (0.60-1.30) Random Glucose 181 MG/DL (74-106) 191 MG/DL (74-106) Total Protein 6.1 GM/DL (6.4-8.2) Albumin 2.0 GM/DL (3.4-5.0) Calcium Level 8.2 MG/DL (8.5-10.1) 8.2 MG/DL (8.5-10.1) Sodium Level 134 MEQ/L (136-145) Estimat Glomerular Filtration Rate 53 ML/MIN (>89) 56 ML/MIN (>89) Urine Color LIGHT-RED (YELLW/STRAW) Urine Turbidity HAZY (CLEAR) Urine Protein 100 mg/dL (NEG-TRACE) Urine Ketones TRACE mg/dL (NEG) Urine Occult Blood LARGE (NEG) White Blood Count 11.3 TH/MM3 (4.0-11.0) Mean Corpuscular Hemoglobin Concent 31.5 % (32.0-36.0) Test 06/22/17 06:35 06/22/17 09:30 White Blood Count 15.7 TH/MM3 (4.0-11.0) Red Blood Count 3.56 MIL/MM3 (4.50-5.90) Hemoglobin 9.4 GM/DL (13.0-17.0) Hematocrit 30.1 % (39.0-51.0) Mean Corpuscular Hemoglobin 26.4 PG (27.0-34.0) Mean Corpuscular Hemoglobin Concent 31.2 % (32.0-36.0) Neutrophils (%) (Auto) 90.8 % (16.0-70.0) Lymphocytes (%) (Auto) 2.5 % (9.0-44.0) Neutrophils # (Auto) 14.3 TH/MM3 (1.8-7.7) Lymphocytes # (Auto) 0.4 TH/MM3 (1.0-4.8) Monocytes # (Auto) 1.0 TH/MM3 (0-0.9) Imaging Last Impressions Renal Ultrasound 06/20/17 0000 Signed Impressions: Service Date/Time: Tuesday, June 20, 2017 11:40 - CONCLUSION: 1. Polycystic kidneys. 2. Dependent mass in the bladder, possibly a hematoma. Close followup recommended. Guanakito Roy MD Chest X-Ray 06/17/17 0600 Signed Impressions: Service Date/Time: Saturday, June 17, 2017 04:31 - CONCLUSION: 1. No acute cardiopulmonary disease. Chivo Bates MD Head CT 06/16/17 1220 Signed Impressions: Service Date/Time: Friday, June 16, 2017 12:42 - CONCLUSION: 1. Cortical atrophy. 2. 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 3. No acute intracranial abnormality identified. Dion Coto MD PE at Discharge GENERAL: Patient appears frail and appear much older than stated age. CARDIOVASCULAR: Normal rate and regular rhythm without murmurs, gallops, or rubs. RESPIRATORY: Good respiratory efforts. Breath sounds equal and clear to auscultation bilaterally. GASTROINTESTINAL: Abdomen soft, non-tender, PEG tube in place. Normal and active bowel sounds. MUSCULOSKELETAL: Extremities without cyanosis, or edema. NEURO: Alert & Oriented to self, some confusions. Moves all extremities but generally weak.. PSYCH: Calm. Hospital Course In summary, this is a 66-year-old male with history of laryngeal cancer, failing standard therapy, not a candidate for further chemotherapy due to poor functional status, oncology recommended hospice. The patient also has a history of DVT, he is on Eliquis. Multiple other comorbidities such as CAD, GERD, hypertension, PVD, diabetes mellitus, chronic pain who was admitted to the hospital for worsening mental status, respiratory distress, overall functional decline. Patient respiratory status he is close to his baseline. He developed hematuria and has been evaluated by urology who advised conservative management by holding Eliquis and follow urine to clear up. Respiratory failure with worsening respiratory status. Resolved currently on RA with capped trach - Status post vancomycin and cefepime. Dc Levaquin per ID. Pulmonology following. - Transition to oral prednisone. - Continue breathing treatment as needed. Hematuria: Patient previously had a Arroyo. This could be related to traumatic Arroyo. Renal ultrasound shows a dependent mass in the bladder, possibly a hematoma. Urology recommends conservative management only for now. Patient can follow-up with him outpatient in a few weeks. Resolved hematuria . May restart Eliquis in 24 hours Altered mental status suspect secondary to infection, resolved. Mental status is at baseline. Laryngeal cancer status post tracheostomy Dysphagia - Failed initial treatment. Not a candidate for chemotherapy or surgery due to poor performance status. Oncology recommends hospice. Family is still opting to pursue aggressive treatment for now. Current goal is to take him home. They would consider hospice if and when he declines further. Chronic DVT Peripheral vascular occlusive disease -Restart Eliquis rine Polycystic kidney disease with chronic elevated creatinine - continue on fluids - Urology consulted for hematuria. Appreciate input. Elevated troponin with suspected demand ischemia: No intervention per cardiology. Continue beta jessica. Monitor. Diabetes mellitus, chronic - ACCU checks, sliding scale, cover as needed. Monitor. GERD continue on PPI Chronic pain: Continue fentanyl patch. Continue Percocet. Morphine IV available PRN. Leukocytosis secondary to steroids . C. difficile negative DVT prophylaxis: Ambulation. SCDs. Pt Condition on Discharge: Stable Discharge Disposition: Disch w/ Home Health Serv Discharge Time: > 30 minutes Discharge Instructions DIET: Follow Instructions for: On Tube Feeding Activities you can perform: Regular-No Restrictions Activities to Avoid: Driving Follow up Referrals: Oncology/Hematology - 1 Week PCP Follow-up - 1 Week Pulmonology - 1 Week Urology - 1 Week New Medications: Lactobacillus Acidophilus (Lactinex Packet) 1 Gm Pkt 1 GM PEG TID for Nutritional Supplement, #30 PKT 0 Refills Prednisone (Prednisone) 20 Mg Tab 20 MG PO DAILY for inflammation for 5 Days, #5 TAB Changed Medications: Apixaban (Eliquis) 5 Mg Tab 5 MG PO BID for ANTICOAGULATION for 30 Days, #60 TAB 0 Refills (Medication details modified) Please restart Eliquis on 06/23. Continued Medications: Alprazolam (Xanax) 0.25 Mg Tab 0.25 MG PO Q8H PRN for ANXIETY, #15 TAB 0 Refills Citalopram (Citalopram) 20 Mg Tab 20 MG PO DAILY for Control Depression, #30 TAB 0 Refills Fentanyl Patch 72 HR (Fentanyl Patch 72 HR) 25 Mcg/Hr Patch 25 MCG T-DERMAL Q72H for Pain Management, #10 PATCH 0 Refills Hydrocodone-Acetaminophen (Hydrocodone-Acetaminophen) 7.5-325 mg Tab 1 TAB PO Q4H PRN for PAIN SCALE 1 TO 10, #20 TAB 0 Refills Hyoscyamine (Levsin) 0.125 Mg Tab 0.125 MG G-TUBE BID for Gastrointestinal disorders, #60 TAB 0 Refills Ipratropium-Albuterol Neb (Duoneb) 0.5-2.5 Mg/3 Ml Neb 1 NEBULE INH Q4HR NEB PRN for SHORTNESS OF BREATH, #120 NEBULE 0 Refills Lansoprazole ODT (Prevacid Solutab ODT) 30 Mg Tab 30 MG NG DAILY for GERD, #30 TAB 0 Refills Loperamide (Imodium A-D) 2 Mg Capsule 2 MG PO Q6H PRN for DIARRHEA, #30 CAP 0 Refills Loratadine Liq (Claritin Liq) 5 Mg/5 Ml Liq 10 MG G-TUBE DAILY for Allergy Management for 30 Days, BOTTLE 0 Refills Metoprolol Tartrate (Metoprolol Tartrate) 25 Mg Tab 12.5 MG PEG BID, #60 TAB 0 Refills Nitroglycerin SL (Nitroglycerin SL) 0.4 Mg Subl 0.4 MG SL DIRECTED PRN for CHEST PAIN, #100 TAB.SL 0 Refills ONE TABLET UNDER THE TONGUE NEEDED FOR CHEST PAIN, MAY REPEAT EVERY FIVE MINUTES FOR A TOTAL OF 3 DOSES OR CALL 911 IF NO RELIEF Ondansetron Liq (Zofran Liq) 4 Mg/5 Ml Soln 4 MG G-TUBE Q4HR PRN for NAUSEA OR VOMITING, #400 ML 0 Refills Oxygen (O2) (Oxygen (O2)) Device 2 LITER MARGO.CANULA CONTINUOUS for Prevent Hypoxemia, #2 CYLINDER Oxygen Concentrator Portable Gaseous 2 L/min via Nasal Canula Continuous For 99 months Pembrolizumab Inj (Keytruda Inj) 50 Mg Inj Polyethylene Glycol 3350 Powder (Miralax Powder) 17 Gm Powd 17 GM G-TUBE DAILY PRN for Constipation, #1 CAN 0 Refills Mix and dissolve one measuring cap-ful (17 grams) in water or juice. Promethazine (Promethazine) 12.5 Mg Tab 25 MG PO Q6H PRN for NAUSEA OR VOMITING, TAB 0 Refills Quetiapine (Quetiapine) 25 Mg Tab 12.5 MG PO BID for Depression, #60 TAB 0 Refills Discontinued Medications: Omeprazole (Omeprazole) 40 Mg Cap 40 MG PO DAILY, #30 CAP 0 Refills Pantoprazole (Pantoprazole) 40 Mg Tab 40 MG PO DAILY for Reflux, #30 TAB 0 Refills Minor King MD Jun 22, 2017 11:43
[2017-06-22] MEDS ORDERED: LACTGRA PEG (11:46)
[2017-06-22 12:00] VITALS: BP 156/84; PULSE 128; RESP 18; TEMP 97.8; O2SAT 97
[2017-06-22 12:41] LABS: C. DIFF EPI 027 PRESUMPTIVE NEGATIVE (NEGATIVE)
[2017-06-22] MEDS: ONDANSETRON HCL 4 MG/2 ML VIAL IVP PRN (12:41)
[2017-06-22] MEDS ORDERED: LACTOBACILLUS ACIDOPHILUS TAB G-TUBE SCH (13:00)
== END 2017-06-22 14:02 | disposition home health service (06) | DRG 871 ==
LOC: NEPE 11:50 → NEDA 16:24 → N04A 18:15
PROVIDERS: ADMIT Internal Medicine; ATTEND Internal Medicine
PROC: 0T9B70Z Drainage of Bladder with Drainage Device, Via Natural or Artificial Opening (ICD-10-PCS; principal; 2017-06-16)
DX: A41.9 Sepsis, unspecified organism (principal); J96.21 Acute and chronic respiratory failure with hypoxia; J69.0 Pneumonitis due to inhalation of food and vomit; N17.9 Acute kidney failure, unspecified; E46 Unspecified protein-calorie malnutrition; I13.0 Hypertensive heart and chronic kidney disease with heart failure and stage 1 through stage 4 chronic kidney disease, or unspecified chronic kidney disease; Z93.0 Tracheostomy status; I24.8 Other forms of acute ischemic heart disease; I50.9 Heart failure, unspecified; T17.990A Other foreign object in respiratory tract, part unspecified in causing asphyxiation, initial encounter; N18.4 Chronic kidney disease, stage 4 (severe); Z68.1 Body mass index [BMI] 19.9 or less, adult; Q61.2 Polycystic kidney, adult type; N02.9 Recurrent and persistent hematuria with unspecified morphologic changes; R13.10 Dysphagia, unspecified; E11.22 Type 2 diabetes mellitus with diabetic chronic kidney disease; J44.9 Chronic obstructive pulmonary disease, unspecified; Z93.1 Gastrostomy status; F32.9 Major depressive disorder, single episode, unspecified; F41.9 Anxiety disorder, unspecified; M19.90 Unspecified osteoarthritis, unspecified site; Z85.21 Personal history of malignant neoplasm of larynx; Z86.14 Personal history of Methicillin resistant Staphylococcus aureus infection; Z79.01 Long term (current) use of anticoagulants; Z92.3 Personal history of irradiation; E78.00 Pure hypercholesterolemia, unspecified; Z86.73 Personal history of transient ischemic attack (TIA), and cerebral infarction without residual deficits; I25.10 Atherosclerotic heart disease of native coronary artery without angina pectoris; K21.9 Gastro-esophageal reflux disease without esophagitis; Z87.442 Personal history of urinary calculi; I25.2 Old myocardial infarction; Z95.1 Presence of aortocoronary bypass graft; Z86.718 Personal history of other venous thrombosis and embolism; Z92.21 Personal history of antineoplastic chemotherapy; Z95.5 Presence of coronary angioplasty implant and graft; Z87.891 Personal history of nicotine dependence; Z82.49 Family history of ischemic heart disease and other diseases of the circulatory system; R62.7 Adult failure to thrive; R00.0 Tachycardia, unspecified; G89.29 Other chronic pain; Z87.01 Personal history of pneumonia (recurrent); I65.21 Occlusion and stenosis of right carotid artery; E11.42 Type 2 diabetes mellitus with diabetic polyneuropathy; G62.9 Polyneuropathy, unspecified; Z51.5 Encounter for palliative care; D64.9 Anemia, unspecified; Z95.820 Peripheral vascular angioplasty status with implants and grafts; N32.9 Bladder disorder, unspecified; X58.XXXA Exposure to other specified factors, initial encounter; Y93.9 Activity, unspecified; Y92.239 Unspecified place in hospital as the place of occurrence of the external cause; T38.0X5A Adverse effect of glucocorticoids and synthetic analogues, initial encounter
CPT/HCPCS: 36600; 51702; 70450; 71010; 76775; 80048; 80053; 80202; 81001; 82550; 82607; 82728; 82747; 82805; 82948; 83036; 83540; 83550; 83605; 83735; 84100; 84439; 84443; 84484; 85025; 85027; 85610; 85730; 86403; 87040; 87070; 87077; 87147; 87186; 87205; 87493; 93005; 94640; 94664; 96361; 96365; 96367; A7520; J0692; J1815; J2270; J2405; J2920; J3370; J7030; J7050; J7512

== ENCOUNTER 2017-07-04 09:38 | Emergency (ER) | payer MEDICARE, MEDICAID ==
[~2017-07-04] VITALS: Ht 182.9 cm; Wt 67.0 kg
[~2017-07-04 09:38] MED LIST changes: -CILO50TA PO; +LACTGRA PEG; -LIDO2GEL11 TOPICAL; +LOPE-1 PO; -OMEP40CA2 PO; -PANT40TA3 PO; +PRED20 PO
[2017-07-04 10:14] VITALS: BP 129/64; PULSE 96; RESP 16; TEMP 98.4; O2SAT 93
[2017-07-04 11:06] LABS: AUTOMATED NEUTROPHIL # 6.3 TH/MM3 (1.8-7.7); BASOPHIL % 0.3 % (0.0-2.0); EOSINOPHIL % 0.5 % (0.0-4.0); HEMATOCRIT 25.3 % (39.0-51.0); HEMO FLAGS DIFF FINAL; LYMPH % 7.3 % (9.0-44.0); LYMPHOCYTE # 0.5 TH/MM3 (1.0-4.8); MEAN CELL VOLUME 84.7 FL (80.0-100.0); MEAN CORPUSCULAR HEMOGLOBIN 27.3 PG (27.0-34.0); MEAN CORPUSCULAR HGB CONC 32.3 % (32.0-36.0); MONO % 3.2 % (0.0-8.0); NEUT % 88.7 % (16.0-70.0); PLATELET COUNT 224 TH/MM3 (150-450); RED BLOOD COUNT 2.99 MIL/MM3 (4.50-5.90); RED CELL DISTRIBUTION WIDTH 16.8 % (11.6-17.2)
--- NOTE | 2017-07-04 11:08 | PD ---
HPI Chief Complaint: Respiratory Symptoms Time Seen by Provider: 10:33 Travel History International Travel<30 days: No Contact w/Intl Traveler<30days: No Traveled to known affect area: No History of Present Illness HPI This patient is brought in because of blood dripping out of his tracheostomy. The problem is had periodically. He was hospitalized for this 2 weeks ago. Patient has recurrent laryngeal cancer and a host of severe chronic health problems. His physicians have recommended hospice and he has declined wanting aggressive treatment until the end. Duration 3 hours. No fever. Patient takes Eliquis for history of blood clots. She gave him a dose this morning despite the bleeding. Patient has a tracheostomy and uses oxygen 3.5 L around the clock. He has a G-tube. Symptoms are exacerbated by his poor health status. 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) Cardiac Catheterization: Yes Cardiovascular Problems: Yes High Cholesterol: Yes Chemotherapy: Yes Chest Pain: No Congestive Heart Failure: Yes COPD: Yes Cerebrovascular Accident: Yes (TIA 02/16/2017 ) Coronary Artery Disease: Yes Diabetes: Yes Patient Takes Glucophage: No Diminished Hearing: No Endocrine: Yes Gastrointestinal Disorders: Yes GERD: Yes Genitourinary: Yes (POLYCYSTIC KIDNEY DISEASE) Headaches: Yes Hiatal Hernia: No Hypertension: Yes Immune Disorder: No Implanted Vascular Access Dvce: No Kidney Stones: Yes Medical other: Yes (PVD) Musculoskeletal: Yes Neurologic: Yes Psychiatric: No Reproductive: No Respiratory: Yes Immunizations Current: Yes Migraines: No Myocardial Infarction: Yes Radiation Therapy: Yes Renal Failure: Yes Seizures: No Sleep Apnea: No Thyroid Disease: No Ulcer: No Past Surgical History Abdominal Surgery: Yes (PEG TUBE) Arteriovenous Shunt: No Cardiac Surgery: Yes (QUAD BIPASS, BILAT FEM, STENTS, CORONARY ANGIO) Cholecystectomy: Yes Coronary Artery Bypass Graft: Yes Coronary Stent: Yes Ear Surgery: No Endocrine Surgery: No Eye Surgery: No Genitourinary Surgery: No Gynecologic Surgery: No Insulin Pump: No Joint Replacement: Yes (SCREWS IN LEFT SHOULDER) Neurologic Surgery: No Oral Surgery: Yes (THROAT DIALATION) Thoracic Surgery: Yes Tonsillectomy: Yes Other Surgery: Yes (TRACHEOSTOMY) Family History Family Myocardial Infarction: Yes Social History Alcohol Use: No Tobacco Use: No (QUIT 2008) Substance Use: No Allergies-Medications (Allergen,Severity, Reaction): Coded Allergies: amlodipine (Unverified Allergy, Severe, 06/16/17) atorvastatin (Unverified Allergy, Severe, 06/16/17) niacin (Unverified Allergy, Severe, 06/16/17) CAUSES HIM TO FEEL HOT pravastatin (Unverified Allergy, Severe, 06/16/17) simvastatin (Unverified Allergy, Severe, 06/16/17) fish oil (Unverified Allergy, Intermediate, Diarrhea, 06/16/17) Reported Meds & Prescriptions Reported Meds & Active Scripts Active Lactinex Packet (Lactobacillus Acidophilus) 1 Gm Pkt 1 Gm PEG TID Eliquis (Apixaban) 5 Mg Tab 5 Mg PO BID 30 Days Please restart Eliquis on 06/23. Oxygen (O2) Device 2 Liter MARGO.CANULA CONTINUOUS Oxygen Concentrator Portable Gaseous 2 L/min via Nasal Canula Continuous For 99 months Xanax (Alprazolam) 0.25 Mg Tab 0.25 Mg PO Q8H PRN Prevacid Solutab ODT (Lansoprazole) 30 Mg Tab 30 Mg NG DAILY Hydrocodone-Acetaminophen 7.5-325 mg Tab 1 Tab PO Q4H PRN Quetiapine (Quetiapine Fumarate) 25 Mg Tab 12.5 Mg PO BID Levsin (Hyoscyamine Sulfate) 0.125 Mg Tab 0.125 Mg G-TUBE BID Duoneb (Ipratropium-Albuterol Neb) 0.5-2.5 Mg/3 Ml Neb 1 Nebule INH Q4HR NEB PRN Claritin Liq (Loratadine) 5 Mg/5 Ml Liq 10 Mg G-TUBE DAILY 30 Days Zofran Liq (Ondansetron HCl) 4 Mg/5 Ml Soln 4 Mg G-TUBE Q4HR PRN Miralax Powder (Polyethylene Glycol 3350 Powder) 17 Gm Powd 17 Gm G-TUBE DAILY PRN Mix and dissolve one measuring cap-ful (17 grams) in water or juice. Reported Imodium A-D (Loperamide HCl) 2 Mg Capsule 2 Mg PO Q6H PRN Metoprolol Tartrate 25 Mg Tab 12.5 Mg PEG BID Keytruda Inj (Pembrolizumab) 50 Mg Inj Fentanyl Patch 72 HR (Fentanyl) 25 Mcg/Hr Patch 25 Mcg T-DERMAL Q72H Promethazine (Promethazine HCl) 12.5 Mg Tab 25 Mg PO Q6H PRN Nitroglycerin SL (Nitroglycerin) 0.4 Mg Subl 0.4 Mg SL DIRECTED PRN ONE TABLET UNDER THE TONGUE NEEDED FOR CHEST PAIN, MAY REPEAT EVERY FIVE MINUTES FOR A TOTAL OF 3 DOSES OR CALL 911 IF NO RELIEF Citalopram (Citalopram Hydrobromide) 20 Mg Tab 20 Mg PO DAILY Review of Systems General / Constitutional: No: Fever Eyes: No: Visual changes HENT: No: Headaches Cardiovascular: Positive: Edema, No: Chest Pain or Discomfort Respiratory: Positive: Cough, Shortness of Breath, Hemoptysis Gastrointestinal: No: Abdominal Pain Genitourinary: No: Dysuria Musculoskeletal: Positive: Weakness, Edema, No: Pain Skin: No Rash Neurologic: Positive: Weakness Psychiatric: No: Depression Endocrine: No: Polydipsia Hematologic/Lymphatic: No: Easy Bruising Physical Exam Narrative GENERAL: Disheveled patient looks pale and weak . SKIN: Focused skin assessment reveals no rash and nodules. Skin is Warm and dry. HEAD: Atraumatic. Normocephalic. EYES: Pupils equal and round. No scleral icterus. No injection or drainage. ENT: No nasal bleeding or discharge. Mucous membranes pink and moist. NECK: Trachea midline. No JVD. CARDIOVASCULAR: Regular rate and rhythm. No murmur appreciated. RESPIRATORY: No accessory muscle use. Clear to auscultation. Breath sounds equal bilaterally. Tracheostomy in place. Trach mask over that. GASTROINTESTINAL: Abdomen soft, non-tender, nondistended. Hepatic and splenic margins not palpable. G-tube in place MUSCULOSKELETAL: No obvious deformities. No clubbing. No cyanosis. Symmetric pitting edema of the legs. NEUROLOGICAL: Awake and alert. No obvious cranial nerve deficits. Motor grossly within normal limits. Normal speech. PSYCHIATRIC: Depressed mood and flat affect; insight and judgment reduced . Data Data Last Documented VS Vital Signs Date Time Temp Pulse Resp B/P (MAP) Pulse Ox O2 Delivery O2 Flow Rate FiO2 07/04/17 11:26 95 16 123/64 (83) 96 Aerosol Mask 6.00 07/04/17 10:14 98.4 Orders Orders Iv Access Insert/Monitor (07/04/17 10:52) Complete Blood Count With Diff (07/04/17 10:52) Basic Metabolic Panel (Bmp) (07/04/17 10:52) Chest, Single Ap (07/04/17 ) Restrictive Preparation Operator / Telemetry [email or web address] (07/04/17 10:52) Labs Laboratory Tests Test 07/04/17 10:59 White Blood Count 7.0 TH/MM3 Red Blood Count 2.99 MIL/MM3 Hemoglobin 8.2 GM/DL Hematocrit 25.3 % Mean Corpuscular Volume 84.7 FL Mean Corpuscular Hemoglobin 27.3 PG Mean Corpuscular Hemoglobin Concent 32.3 % Red Cell Distribution Width 16.8 % Platelet Count 224 TH/MM3 Mean Platelet Volume 8.6 FL Neutrophils (%) (Auto) 88.7 % Lymphocytes (%) (Auto) 7.3 % Monocytes (%) (Auto) 3.2 % Eosinophils (%) (Auto) 0.5 % Basophils (%) (Auto) 0.3 % Neutrophils # (Auto) 6.3 TH/MM3 Lymphocytes # (Auto) 0.5 TH/MM3 Monocytes # (Auto) 0.2 TH/MM3 Eosinophils # (Auto) 0.0 TH/MM3 Basophils # (Auto) 0.0 TH/MM3 CBC Comment DIFF FINAL Differential Comment Blood Urea Nitrogen 27 MG/DL Creatinine 1.30 MG/DL Random Glucose 125 MG/DL Calcium Level 8.0 MG/DL Sodium Level 133 MEQ/L Potassium Level 4.4 MEQ/L Chloride Level 96 MEQ/L Carbon Dioxide Level 30.8 MEQ/L Anion Gap 6 MEQ/L Estimat Glomerular Filtration Rate 55 ML/MIN [facility] Medical Decision Making Medical Screen Exam Complete: Yes Emergency Medical Condition: Yes Medical Record Reviewed: Yes Differential Diagnosis Bleeding cancerous lesion, anticoagulation status, anemia Narrative Course I have reviewed the patient's electronic medical record. I reviewed his oncologist note from a week ago. I reviewed his discharge summary from most recent hospitalization IV placed CBC shows hemoglobin of 8.2 with normal white count Metabolic profile is normal creatinine 1.3 I reviewed his chest x-ray which is normal Respiratory therapist cleaned out and suctioned out his tracheostomy. There was some bloody mucus there that he tried to clear out as best as possible. Had a lengthy discussion with the patient's and daughter and physician Dr. Briggs There is been a lot of confusion as to the aggressive nature of his medical care It seems like his physicians have realized the futility of it and suggested hospice but the patient was resistant because he heard that "hospice kills people" Whatever his parents he is had with hospice in the past has been negative. Dr. Briggs called family members and had a sort of conference and they have decided to send him home. I'm discharging him at Dr. Briggs's request. She says that hospice is going to visit him at home tomorrow and they will further discuss the issue. Diagnosis Primary Impression: Tracheostomy hemorrhage Additional Impressions: Anticoagulated Laryngeal cancer Additional Instructions: The patient was advised to follow up with their physician and return if they worsen. Stop Eliquis Med/Other Pt SpecificInfo: Other Disposition: 01 DISCHARGE HOME Condition: Stable Kermit Krishnamurthy MD Jul 04, 2017 11:08
[2017-07-04 11:14] LABS: POTASSIUM 4.4 MEQ/L (3.5-5.1)
[2017-07-04 11:17] LABS: BICARBONATE 30.8 MEQ/L (21.0-32.0)
--- NOTE | 2017-07-04 11:25 | RADRPT ---
EXAM DATE/TIME: 07/04/2017 11:09 [facility] COMPARISON: CHEST SINGLE AP, June 17, 2017, 4:31. INDICATIONS : Short of breath. MEDICAL HISTORY : Hypercholesterolemia. Gastroesophageal reflux disease. Chronic obstructive pulmonary disease. Cerebro vascular accident. Myocardial infarction. Congestive heart failure. Peripheral vascular disease. Tube rculosis. Hypertension. Renal failure. Kidney stones. Fibromyalgia. Arthritis. Gout. Diabetes. Polycy stic kidney disease. Carcinoma, laryngeal. Chemotherapy. Blood transfusion. MRSA. Clostridium diffici le. SURGICAL HISTORY : Tonsillectomy. Cholecystectomy. Coronary artery bypass graft. Cardiaccatheterization. Coronary stent. Left shoulder screw. ENCOUNTER: Initial ACUITY: 1 day PAIN SCORE: 0/10 LOCATION: chest FINDINGS: A single view of the chest demonstrates the lungs to be symmetrically aerated without evidence of mas s, infiltrate or effusion. [id number] and Trach tube in good position. Sternal wires are noted, superior wire fractured. The cardiomediastinal contours are unremarkable. Osseous structures are in tact. CONCLUSION: Negative for acute disease. Bobby Coto MD FACR on July 04, 2017 at 11:21 Board Certified Radiologist. This report was verified electronically.
[2017-07-04 11:26] VITALS: BP 123/64; PULSE 95; RESP 16; O2SAT 96
== END 2017-07-04 13:14 | disposition home or self-care (01) ==
LOC: PHED 09:38
DX: C32.9 Malignant neoplasm of larynx, unspecified (principal); J95.01 Hemorrhage from tracheostomy stoma; I11.0 Hypertensive heart disease with heart failure; I50.9 Heart failure, unspecified; I25.10 Atherosclerotic heart disease of native coronary artery without angina pectoris; E78.00 Pure hypercholesterolemia, unspecified; Z87.891 Personal history of nicotine dependence
CPT/HCPCS: 71010; 80048; 85025; 99284; J1642